=== PATIENT | female | born 1950 | race African-American/Black ===

== ENCOUNTER → 2020-04-28 10:55 | Outpatient (BNVA) | payer MEDICARE, SELFPAY | PROVIDERS: PCP Family Medicine; Visit Provider Internal Medicine Endocrinology, Diabetes & Metabolism | DX: E10.65 Type 1 diabetes mellitus with hyperglycemia (principal); E10.42 Type 1 diabetes mellitus with diabetic polyneuropathy; Z46.81 Encounter for fitting and adjustment of insulin pump; E78.5 Hyperlipidemia, unspecified; E55.9 Vitamin D deficiency, unspecified; E66.9 Obesity, unspecified; Z79.899 Other long term (current) drug therapy | CPT/HCPCS: 82947; 99212 ==

== ENCOUNTER → 2020-08-04 10:43 | Outpatient (BNVA) | payer MEDICARE, SELFPAY | PROVIDERS: PCP Family Medicine; Visit Provider Internal Medicine Endocrinology, Diabetes & Metabolism | DX: E10.65 Type 1 diabetes mellitus with hyperglycemia (principal); E10.42 Type 1 diabetes mellitus with diabetic polyneuropathy; E78.5 Hyperlipidemia, unspecified; E55.9 Vitamin D deficiency, unspecified; E66.9 Obesity, unspecified; I10 Essential (primary) hypertension | CPT/HCPCS: 82947; 99212 ==

== ENCOUNTER 2020-08-04 11:59 | Outpatient (REF) | payer MEDICARE, SELFPAY ==
[2020-08-04 14:58] LABS: Alanine Aminotransferase 40 U/L (0-31); Albumin Level 3.7 g/dL (3.5-5.0); Alkaline Phosphatase 108 U/L (39-117); Anion Gap 12 (12-20); Aspartate Amino Transferase 36 U/L (5-31); Bilirubin Total 0.6 mg/dL (0.0-1.0); Blood Urea Nitrogen 19 mg/dL (9-16); Calcium 9.1 mg/dL (8.4-10.2); Carbon Dioxide 30 mmol/L (22-29); Chloride 101 mmol/L (96-108); Cholesterol 122 mg/dL; Estimated Glomerular Filt Rate > 60; Glucose Fasting 180 mg/dL (60-99); HDL Cholesterol 48 mg/dL; LDL Cholesterol Calculated 63 mg/dl; Potassium 4.7 mmol/L (3.3-5.1); Sodium 138 mmol/L (135-145); Triglycerides 59 mg/dL
[2020-08-04 14:59] LABS: Creatinine Urine 24.43 mg/dL; Microalbum/Creatinine Ratio Ur 192.3 ug/mg cr
[2020-08-04 15:05] LABS: Free T4 (Free Thyroxine) 1.11 ng/dL (0.71-1.85); Vitamin D 25-OH Total 41.3 ng/mL (>30)
[2020-08-04 15:29] LABS: Vitamin B12 889 pg/mL (200-900)
[2020-08-05 20:47] LABS: LDL Cholesterol Direct 57 mg/dL (<100)
== END 2020-08-04 12:00 | disposition home or self-care (01) ==
LOC: HO.10HDL 11:59
PROVIDERS: Visit Provider Internal Medicine Endocrinology, Diabetes & Metabolism
DX: E10.65 Type 1 diabetes mellitus with hyperglycemia (principal)
CPT/HCPCS: 36415; 80053; 80061; 82043; 82306; 82607; 83721; 84439; 84443

== ENCOUNTER → 2020-09-04 10:23 | Outpatient (BNV) | payer MEDICARE, SELFPAY | PROVIDERS: PCP Family Medicine; Visit Provider Internal Medicine Medical Oncology | DX: D69.6 Thrombocytopenia, unspecified (principal); D64.9 Anemia, unspecified | CPT/HCPCS: 99213; 99214 ==

== ENCOUNTER → 2020-10-03 10:32 | Outpatient (BNVA) | payer MEDICARE, SELFPAY | PROVIDERS: Visit Provider Student in an Organized Health Care Education/Training Program | DX: M05.9 Rheumatoid arthritis with rheumatoid factor, unspecified (principal); Z79.899 Other long term (current) drug therapy | CPT/HCPCS: 99212 ==

== ENCOUNTER 2020-10-28 10:25 | Outpatient (REF) | payer MEDICARE, SELFPAY ==
--- NOTE | ~2020-10-28 | XR_ITS ---
EXAMINATION: XR CHEST CLINICAL INFORMATION: Cough COMPARISON: April 12, 2017 TECHNIQUE: 2 views of the chest were obtained. FINDINGS: There is no evidence of acute parenchymal disease. No pneumothorax or pleural effusion. Heart is enlarged. Pacemaker/defibrillator in place. No evidence of pulmonary edema. XR/XR chest 2V IMPRESSION: No acute disease. Cardiomegaly without edema.
== END 2020-10-28 10:26 | disposition home or self-care (01) ==
LOC: HO.XRAY 10:25
PROVIDERS: PCP Family Medicine; Visit Provider Family Medicine
DX: R05 Cough (principal); I51.7 Cardiomegaly
CPT/HCPCS: 71046

== ENCOUNTER 2020-11-10 10:39 | Outpatient (REF) | payer MEDICARE, SELFPAY ==
--- NOTE | ~2020-11-10 | MM_ITS ---
EXAMINATION: MM SCREENING DIGITAL BREAST TOMOSYNTHESIS, BILATERAL CLINICAL INFORMATION: Screening. Asymptomatic. The lifetime risk of breast cancer based on the Tyrer-Cuzick Model is 2%. COMPARISON: Mammography: 12/19/2018, 11/29/2016, 11/04/2015 TECHNIQUE: Digital breast tomosynthesis is performed in both the craniocaudal and mediolateral oblique views along with computer-aided detection (CAD). Synthesized 2D images are generated from the tomosynthesis. Additional left MLO view is provided. FINDINGS: The breasts are heterogeneously dense, which may obscure small masses (ACR BI-RADS breast composition Category c). There are no significant masses, abnormal calcifications, or other abnormalities. There is a pacemaker generator overlying and partly obscuring the left axilla on the MLO view. Parenchymal pattern is similar to prior studies. There is no developing density. Benign ductal secretory calcifications are again noted mid outer right breast. MM/MM tomosynthesis screening BI IMPRESSION: No mammographic evidence of malignancy. ASSESSMENT: BI-RADS 2: Benign RECOMMENDATION: Routine annual mammography screening. This patient's information was entered into a reminder system with a target due date for their next mammogram.
== END 2020-11-10 10:40 | disposition home or self-care (01) ==
LOC: HO.MAMMO 10:39
PROVIDERS: Visit Provider Family Medicine
DX: Z12.31 Encounter for screening mammogram for malignant neoplasm of breast (principal)
CPT/HCPCS: 77063; 77067

== ENCOUNTER 2020-11-11 10:36 | Outpatient (REF) | payer MEDICARE, SELFPAY ==
[2020-11-11 13:54] LABS: Alanine Aminotransferase 65 U/L (0-31); Albumin Level 3.6 g/dL (3.5-5.0); Alkaline Phosphatase 130 U/L (39-117); Aspartate Amino Transferase 40 U/L (5-31); Bilirubin Direct 0.2 mg/dL (0.0-0.5); Bilirubin Total 0.6 mg/dL (0.0-1.0); Gamma Glutamyl Transpeptidase 81 U/L (7-33); Total Protein 6.4 g/dL (6.5-8.0)
== END 2020-11-11 10:37 | disposition home or self-care (01) ==
LOC: HO.LAB 10:36
PROVIDERS: PCP Family Medicine; Visit Provider Internal Medicine Endocrinology, Diabetes & Metabolism
DX: E10.65 Type 1 diabetes mellitus with hyperglycemia (principal); E10.42 Type 1 diabetes mellitus with diabetic polyneuropathy; I10 Essential (primary) hypertension; E78.5 Hyperlipidemia, unspecified; E55.9 Vitamin D deficiency, unspecified; E66.9 Obesity, unspecified; Z79.899 Other long term (current) drug therapy; Z96.41 Presence of insulin pump (external) (internal); R74.8 Abnormal levels of other serum enzymes
CPT/HCPCS: 36415; 80076; 82947; 82977; 99212

== ENCOUNTER 2020-12-02 10:33 | Outpatient (REF) | payer MEDICARE, SELFPAY ==
[2020-12-02 12:36] LABS: Alanine Aminotransferase 62 U/L (0-31); Albumin Level 3.4 g/dL (3.5-5.0); Alkaline Phosphatase 126 U/L (39-117); Aspartate Amino Transferase 41 U/L (5-31); Bilirubin Direct 0.2 mg/dL (0.0-0.5); Bilirubin Total 0.6 mg/dL (0.0-1.0); Total Protein 6.2 g/dL (6.5-8.0)
== END 2020-12-02 10:34 | disposition home or self-care (01) ==
LOC: HO.LAB 10:33
PROVIDERS: PCP Family Medicine; Visit Provider Internal Medicine Endocrinology, Diabetes & Metabolism
DX: R74.8 Abnormal levels of other serum enzymes (principal)
CPT/HCPCS: 36415; 80076

== ENCOUNTER 2020-12-17 10:38 | Outpatient (REF) | payer MEDICARE, SELFPAY ==
[2020-12-17 11:14] LABS: MANUAL DIFF FLAG NO
[2020-12-17 11:24] LABS: Basophils Percent Auto 0.4 % (0-2); Eosinophils Absolute Auto 0.2 X10*3/uL (0.0-0.4); Eosinophils Percent Auto 3.3 % (0-4); Hematocrit 35.1 % (37-47); Hemoglobin 10.7 g/dl (12.0-16.0); Imm Gran Abs Auto 0.03 X10*3/uL (0.00-0.03); Imm Gran Pct Auto 0.4 % (0.0-0.4); Lymphocytes Absolute Auto 1.6 X10*3/uL (1.2-4.9); Lymphocytes Percent Auto 22.5 % (20-40); Mean Corpuscular HGB Conc 30.5 g/dl (31.0-35.0); Mean Corpuscular Hemoglobin 22.9 pg (27.0-33.0); Mean Corpuscular Volume 75.2 fL (80-98); Monocytes Absolute Auto 0.5 X10*3/uL (0.1-1.2); Monocytes Percent Auto 7.5 % (2-11); Neutrophils Absolute Auto 4.7 X10*3/uL (2.0-8.3); Neutrophils Percent Auto 65.9 % (45-73); Platelet Count 136 X10*3/uL (160-400); Red Blood Count 4.67 X10*6/uL (4.20-5.50); Red Cell Distribution Width 15.1 % (11.0-16.0); White Blood Count 7.1 X10*3/uL (4.8-10.8)
[2020-12-17 12:02] LABS: Erythrocyte Sedimentation Rate 17 MM/HR (0-20)
[2020-12-17 12:19] LABS: Alanine Aminotransferase 75 U/L (0-31); Albumin Level 3.6 g/dL (3.5-5.0); Alkaline Phosphatase 142 U/L (39-117); Anion Gap 11 (12-20); Aspartate Amino Transferase 40 U/L (5-31); Bilirubin Total 0.4 mg/dL (0.0-1.0); Blood Urea Nitrogen 19 mg/dL (9-16); C Reactive Protein 0.43 mg/dL (< or = 0.50); Calcium 9.5 mg/dL (8.4-10.2); Carbon Dioxide 28 mmol/L (22-29); Chloride 103 mmol/L (96-108); Estimated Glomerular Filt Rate 55; Glucose Random 242 mg/dL (60-115); Potassium 4.2 mmol/L (3.3-5.1); Sodium 138 mmol/L (135-145); Total Protein 6.7 g/dL (6.5-8.0)
== END 2020-12-17 10:39 | disposition home or self-care (01) ==
LOC: HO.LAB 10:38
PROVIDERS: PCP Family Medicine; Visit Provider Student in an Organized Health Care Education/Training Program
DX: M05.9 Rheumatoid arthritis with rheumatoid factor, unspecified (principal)
CPT/HCPCS: 36415; 80053; 85025; 85652; 86140

== ENCOUNTER → 2021-01-02 10:18 | Outpatient (BNVA) | payer MEDICARE, SELFPAY | PROVIDERS: PCP Family Medicine; Visit Provider Student in an Organized Health Care Education/Training Program | DX: M05.9 Rheumatoid arthritis with rheumatoid factor, unspecified (principal); Z79.899 Other long term (current) drug therapy | CPT/HCPCS: 99212 ==

== ENCOUNTER 2021-02-03 10:26 | Outpatient (REF) | payer MEDICARE, SELFPAY ==
--- NOTE | ~2021-02-03 | XR_ITS ---
EXAMINATION: XR WRIST, RIGHT XR WRIST, LEFT CLINICAL INFORMATION: Rheumatoid arthritis with rheumatoid factor. Pain runs through the hand to shoulder. COMPARISON: Bilateral hand/wrist 06/18/2019. TECHNIQUE: PA, oblique, lateral, and odontoid views of each wrist are obtained. FINDINGS: RIGHT WRIST: There is no acute fracture or malalignment. There are no apparent degenerative changes or erosions. LEFT WRIST: There is an old ununited ulnar styloid fracture. There is no acute fracture or malalignment. There is no change in a small subchondral degenerative cyst in the distal scaphoid which may be degenerative. There are no other apparent degenerative arthritic changes. There are no erosions. XR/XR wrist LT 2V IMPRESSION: Right Wrist: Unremarkable radiographs. No evidence of inflammatory arthropathy. Left Wrist: Old ununited avulsion fracture of the ulnar styloid. No change in subchondral degenerative cyst in the distal scaphoid which may be degenerative. No evidence of inflammatory arthropathy.
--- NOTE | ~2021-02-03 | XR_ITS ---
EXAMINATION: XR WRIST, RIGHT XR WRIST, LEFT CLINICAL INFORMATION: Rheumatoid arthritis with rheumatoid factor. Pain runs through the hand to shoulder. COMPARISON: Bilateral hand/wrist 06/18/2019. TECHNIQUE: PA, oblique, lateral, and odontoid views of each wrist are obtained. FINDINGS: RIGHT WRIST: There is no acute fracture or malalignment. There are no apparent degenerative changes or erosions. LEFT WRIST: There is an old ununited ulnar styloid fracture. There is no acute fracture or malalignment. There is no change in a small subchondral degenerative cyst in the distal scaphoid which may be degenerative. There are no other apparent degenerative arthritic changes. There are no erosions. XR/XR wrist RT 2V IMPRESSION: Right Wrist: Unremarkable radiographs. No evidence of inflammatory arthropathy. Left Wrist: Old ununited avulsion fracture of the ulnar styloid. No change in subchondral degenerative cyst in the distal scaphoid which may be degenerative. No evidence of inflammatory arthropathy.
[2021-02-03 10:58] LABS: MANUAL DIFF FLAG NO
[2021-02-03 11:16] LABS: Basophils Percent Auto 0.3 % (0-2); Eosinophils Absolute Auto 0.2 X10*3/uL (0.0-0.4); Eosinophils Percent Auto 2.3 % (0-4); Hemoglobin 10.6 g/dl (12.0-16.0); Imm Gran Abs Auto 0.04 X10*3/uL (0.00-0.03); Imm Gran Pct Auto 0.5 % (0.0-0.4); Lymphocytes Absolute Auto 1.3 X10*3/uL (1.2-4.9); Lymphocytes Percent Auto 15.1 % (20-40); Mean Corpuscular HGB Conc 30.3 g/dl (31.0-35.0); Mean Corpuscular Hemoglobin 22.6 pg (27.0-33.0); Mean Corpuscular Volume 74.8 fL (80-98); Monocytes Absolute Auto 0.7 X10*3/uL (0.1-1.2); Monocytes Percent Auto 7.5 % (2-11); Neutrophils Absolute Auto 6.5 X10*3/uL (2.0-8.3); Neutrophils Percent Auto 74.3 % (45-73); Platelet Count 141 X10*3/uL (160-400); Red Blood Count 4.68 X10*6/uL (4.20-5.50); Red Cell Distribution Width 15.4 % (11.0-16.0); White Blood Count 8.8 X10*3/uL (4.8-10.8)
[2021-02-03 11:29] LABS: Alanine Aminotransferase 31 U/L (0-31); Albumin Level 3.7 g/dL (3.5-5.0); Alkaline Phosphatase 128 U/L (39-117); Anion Gap 9 (12-20); Aspartate Amino Transferase 23 U/L (5-31); Bilirubin Total 0.5 mg/dL (0.0-1.0); Blood Urea Nitrogen 21 mg/dL (9-16); C Reactive Protein 0.38 mg/dL (< or = 0.50); Calcium 9.9 mg/dL (8.4-10.2); Carbon Dioxide 31 mmol/L (22-29); Chloride 101 mmol/L (96-108); Estimated Glomerular Filt Rate > 60; Glucose Random 206 mg/dL (60-115); Potassium 4.1 mmol/L (3.3-5.1); Sodium 137 mmol/L (135-145)
[2021-02-03 12:07] LABS: Erythrocyte Sedimentation Rate 18 MM/HR (0-20)
== END 2021-02-03 10:27 | disposition home or self-care (01) ==
LOC: HO.XRAY 10:26
PROVIDERS: PCP Family Medicine; Visit Provider Student in an Organized Health Care Education/Training Program
DX: M05.9 Rheumatoid arthritis with rheumatoid factor, unspecified (principal)
CPT/HCPCS: 36415; 73100; 80053; 85025; 85652; 86140

== ENCOUNTER → 2021-02-04 08:29 | Outpatient (BNVA) | payer MEDICARE, SELFPAY | PROVIDERS: Visit Provider Nurse Practitioner Family | DX: M05.9 Rheumatoid arthritis with rheumatoid factor, unspecified (principal); M25.511 Pain in right shoulder; Z79.899 Other long term (current) drug therapy | CPT/HCPCS: 99212 ==

== ENCOUNTER 2021-02-05 10:32 | Outpatient (REF) | payer MEDICARE, SELFPAY ==
--- NOTE | ~2021-02-05 | XR_ITS ---
EXAMINATION: XR SHOULDER, RIGHT CLINICAL INFORMATION: Right shoulder pain. COMPARISON: 07/15/2011 TECHNIQUE: AP external rotation, Grashey, scapular Y, and axillary views of the right shoulder. FINDINGS: There is no evidence of acute fracture or dislocation of the right shoulder. Glenohumeral joint appears unremarkable. There is some mild narrowing of the acromioclavicular joint without significant spurring. No widening of the coracoclavicular space is seen. No calcific tendinitis is noted. XR/XR shoulder RT min 2V IMPRESSION: No significant right shoulder abnormality appreciated.
[2021-02-05 11:20] LABS: MANUAL DIFF FLAG NO
[2021-02-05 11:34] LABS: Basophils Percent Auto 0.5 % (0-2); Eosinophils Absolute Auto 0.1 X10*3/uL (0.0-0.4); Eosinophils Percent Auto 2.2 % (0-4); Hematocrit 34.7 % (37-47); Hemoglobin 10.8 g/dl (12.0-16.0); Imm Gran Abs Auto 0.02 X10*3/uL (0.00-0.03); Imm Gran Pct Auto 0.3 % (0.0-0.4); Lymphocytes Absolute Auto 1.4 X10*3/uL (1.2-4.9); Lymphocytes Percent Auto 21.6 % (20-40); Mean Corpuscular HGB Conc 31.1 g/dl (31.0-35.0); Monocytes Absolute Auto 0.4 X10*3/uL (0.1-1.2); Monocytes Percent Auto 6.5 % (2-11); Neutrophils Absolute Auto 4.4 X10*3/uL (2.0-8.3); Neutrophils Percent Auto 68.9 % (45-73); Platelet Count 141 X10*3/uL (160-400); Red Blood Count 4.69 X10*6/uL (4.20-5.50); Red Cell Distribution Width 15.2 % (11.0-16.0); White Blood Count 6.4 X10*3/uL (4.8-10.8)
[2021-02-05 12:03] LABS: Alanine Aminotransferase 33 U/L (0-31); Albumin Level 3.6 g/dL (3.5-5.0); Alkaline Phosphatase 124 U/L (39-117); Anion Gap 8 (12-20); Aspartate Amino Transferase 23 U/L (5-31); Bilirubin Total 0.4 mg/dL (0.0-1.0); Blood Urea Nitrogen 18 mg/dL (9-16); C Reactive Protein 0.39 mg/dL (< or = 0.50); Carbon Dioxide 33 mmol/L (22-29); Chloride 103 mmol/L (96-108); Estimated Glomerular Filt Rate > 60; Glucose Random 291 mg/dL (60-115); Potassium 4.5 mmol/L (3.3-5.1); Sodium 139 mmol/L (135-145); Total Protein 6.9 g/dL (6.5-8.0)
[2021-02-05 12:14] LABS: Erythrocyte Sedimentation Rate 17 MM/HR (0-20)
== END 2021-02-05 10:33 | disposition home or self-care (01) ==
LOC: HO.XRAY 10:32
PROVIDERS: PCP Family Medicine; Visit Provider Nurse Practitioner Family
DX: M25.511 Pain in right shoulder (principal); M05.9 Rheumatoid arthritis with rheumatoid factor, unspecified
CPT/HCPCS: 36415; 73030; 80053; 85025; 85652; 86140

== ENCOUNTER → 2021-02-23 10:46 | Outpatient (BNVA) | payer MEDICARE, SELFPAY | PROVIDERS: PCP Family Medicine; Referring Provider Family Medicine; Visit Provider Surgery | DX: Z12.11 Encounter for screening for malignant neoplasm of colon (principal); K21.9 Gastro-esophageal reflux disease without esophagitis | CPT/HCPCS: 99202 ==

== ENCOUNTER → 2021-03-13 11:31 | Outpatient (BNVA) | payer MEDICARE, SELFPAY | PROVIDERS: Referring Provider Family Medicine; Visit Provider Nurse Practitioner Family | DX: K21.9 Gastro-esophageal reflux disease without esophagitis (principal); R74.8 Abnormal levels of other serum enzymes; R79.89 Other specified abnormal findings of blood chemistry | CPT/HCPCS: 99202 ==

== ENCOUNTER → 2021-03-25 10:45 | Outpatient (BNVA) | payer MEDICARE, SELFPAY | PROVIDERS: Visit Provider Physician Assistant | DX: M77.11 Lateral epicondylitis, right elbow (principal) | CPT/HCPCS: 99202 ==

== ENCOUNTER 2021-05-18 10:18 | Outpatient (REF) | payer MEDICARE, SELFPAY | END 2021-05-18 10:19 | disposition home or self-care (01) | LOC: HO.US 10:18 | PROVIDERS: PCP Family Medicine; Visit Provider Nurse Practitioner | DX: Z13.89 Encounter for screening for other disorder (principal) ==

== ENCOUNTER 2021-07-01 08:22 | Outpatient (REF) | payer MEDICARE, SELFPAY ==
--- NOTE | 2021-07-01 08:33 | EMG_ITS ---
This is a 70-year-old woman with 2 months history of right upper extremity pain that started in the shoulder area, is now down into the hand with numbness in the hand. PHYSICAL EXAMINATION: She is alert and oriented with normal intellectual functions. Cranial nerves II through XII are normal. Muscle tone and strength are normal in all 4 extremities. Deep tendon reflexes symmetrical. No Tinel or Phalen sign. IMPRESSION: Rule out cervical radiculopathy. Rule out carpal tunnel syndrome. Nerve conduction EMG study: Normal electrodiagnostic study of the right upper extremity with no evidence of carpal tunnel syndrome or cervical radiculopathy. Normal EMG of the right C5-T1 innervated muscles. MD TAMICA Gomes/BETTIE / [id number]
== END 2021-07-01 08:23 | disposition home or self-care (01) ==
LOC: HO.NEURO 08:22
PROVIDERS: Visit Provider Family Medicine
DX: M79.601 Pain in right arm (principal); R20.2 Paresthesia of skin
CPT/HCPCS: 95885; 95910

== ENCOUNTER 2021-07-02 07:41 | Outpatient (REF) | payer MEDICARE, SELFPAY ==
--- NOTE | ~2021-07-02 | US_ITS ---
EXAMINATION: US COMPLETE ABDOMEN WITH LIVER ELASTOGRAPHY CLINICAL INFORMATION: Elevated liver function tests COMPARISON: Previous abdominal ultrasound November 2010 CT of the abdomen and pelvis September 2014 and renal ultrasound July 2015 TECHNIQUE: Real-time imaging of the abdominal viscera. Noninvasive ultrasound liver fibrosis assessment is performed using Patsy ElastPQ point quantification shear wave elastography (2D-SWE) with a C5-2 MHz transducer. Multiple elastography samples are obtained. FINDINGS: PANCREAS: The visualized pancreatic head and body are normal in appearance. The remainder of the pancreas is obscured from visualization by the overlying bowel gas. ABDOMINAL AORTA: The proximal, middle, and distal aortic segments are normal in caliber. INFERIOR VENA CAVA: Visualized portions are normal. LIVER: Normal. The liver demonstrates normal size, contour and echogenicity. No focal lesion or intrahepatic biliary duct dilatation. The right lobe measures 12 cm in length. The left lobe measures 9 cm in length. Portal flow is normal/hepatopedal Shear wave liver elastography median stiffness is 1.5 m/s (reference: normal median stiffness is 1.3 m/s or less). IQR/median stiffness to assess sampling precision is 0.1 (reference: good quality data set is IQR/median stiffness of 0.15 or less). GALLBLADDER: Normal. The gallbladder is physiologically distended without evidence of stones, sludge, polyps, wall thickening or pericholecystic fluid. COMMON BILE DUCT: Normal in caliber measuring 0.6 cm in diameter. RIGHT KIDNEY: Normal. No hydronephrosis. No renal calculi or focal parenchymal lesions. The kidney measures 10 cm in maximum dimension. LEFT KIDNEY: Normal. No hydronephrosis. No renal calculi or focal parenchymal lesions. The kidney measures 9.7 cm in maximum dimension. SPLEEN: Normal. The spleen measures 7 cm in maximum dimension. FREE FLUID: None. US/US abdomen comp w elastography IMPRESSION: 1. Impression: Limited visualization of the tail of the pancreas. Otherwise unremarkable abdominal ultrasound. 2. Liver elastography: Adequate liver sampling. In the absence of other known clinical signs, rules out compensated advanced chronic liver disease. REFERENCE: Society of Radiologists in Ultrasound Liver Stiffness Thresholds (2020): LIVER STIFFNESS THRESHOLDS: *Liver Stiffness equal or less than 1.3 m/s: High probability of being normal. *Liver Stiffness less than 1.7 m/s: In the absence of other known clinical signs, rules out compensated advanced chronic liver disease. *Liver Stiffness 1.7-2.1 m/s: Suggestive of compensated advanced chronic liver disease but need further test for confirmation. *Liver Stiffness over 2.1 m/s: Rules in compensated advanced chronic liver disease. *Liver Stiffness over 2.4 m/s: Suggestive of clinically significant portal hypertension. QUALITY OF DATA SET: *IQR/Median value equal or less than 0.15 implies a quality data set. *IQR/Median value over 0.15 implies a poor quality data set. SIGNIFICANT CHANGE FROM PRIOR EXAM: Significant change if liver stiffness measurement is 10% or greater from prior exam. OTHER CONSIDERATIONS: The stage of liver fibrosis may be overestimated in the setting of acute hepatitis, liver inflammation, elevated liver function tests, hepatic vascular congestion, obstructive cholestasis, non-fasting state, and infiltrative diseases such as amyloidosis and lymphoma. In some patients with NAFLD, the liver stiffness thresholds for compensated advanced chronic liver disease may be lower. In causes other than viral hepatitis and NAFLD, liver stiffness thresholds are not well established.
== END 2021-07-02 07:42 | disposition home or self-care (01) ==
LOC: HO.US 07:41
PROVIDERS: Visit Provider Nurse Practitioner
DX: R79.89 Other specified abnormal findings of blood chemistry (principal)
CPT/HCPCS: 76705; 76981

== ENCOUNTER 2021-07-03 07:18 | Outpatient (REF) | payer MEDICARE, SELFPAY ==
--- NOTE | 2021-07-03 | PFT_ITS ---
Forced vital capacity 78%, FEV1 88%, FEV1/FVC ratio is 85. FEF 25-75 122% and MVV is 78%. Postbronchodilator therapy, there is small, but significant improvement in FEF 25-75. Lung volumes, total lung capacity 77% and residual volume 70%. Diffusion capacity 102%. CONCLUSION: These findings are consistent with mild restrictive pulmonary disorder. No evidence of obstructive airway disorder. There is a mild significant response to bronchodilator as far as FEF 25-75 is concerned and this may indicate mild bronchospastic component. Clinical correlation is recommended. Jennifer Zeng MD MSB/MODL / [phone]
== END 2021-07-03 07:19 | disposition home or self-care (01) ==
LOC: HO.RESP 07:18
PROVIDERS: PCP Family Medicine; Visit Provider Family Medicine
DX: R05.9 Cough, unspecified (principal)
CPT/HCPCS: 94060; 94727; 94729

== ENCOUNTER → 2021-07-10 08:39 | Outpatient (BNVA) | payer MEDICARE, SELFPAY | PROVIDERS: Visit Provider Nurse Practitioner Gerontology | DX: Z13.89 Encounter for screening for other disorder (principal) | CPT/HCPCS: Q3014 ==

== ENCOUNTER → 2021-07-21 10:58 | Outpatient (BNVA) | payer MEDICARE, SELFPAY | PROVIDERS: PCP Family Medicine; Visit Provider Internal Medicine Pulmonary Disease | DX: R05.9 Cough, unspecified (principal); K21.9 Gastro-esophageal reflux disease without esophagitis; Z79.899 Other long term (current) drug therapy | CPT/HCPCS: 99202 ==

== ENCOUNTER → 2021-07-23 09:39 | Outpatient (BNVA) | payer OTHER, SELFPAY | PROVIDERS: PCP Family Medicine; Visit Provider Registered Nurse Diabetes Educator | DX: E10.42 Type 1 diabetes mellitus with diabetic polyneuropathy (principal) | CPT/HCPCS: 99211 ==

== ENCOUNTER 2021-07-28 06:00 | Day surgery (SDC) | payer MEDICARE, SELFPAY ==
[2021-07-20 15:03] VITALS: BMI 29.0
--- NOTE | 2021-07-24 12:22 | P.CONAN_ITS ---
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) Acute pain of right shoulder (Acute) Colon cancer screening (Acute) Lateral epicondylitis, right elbow (Acute) Chronic GERD (Acute) Elevated liver enzymes (Acute) Seropositive rheumatoid arthritis (Acute) Obesity (BMI 30-39.9) (Acute) Rheumatoid arthritis (Acute) Vitamin D deficiency (Acute) Dyslipidemia (Acute) Hypertension (Acute) Diabetic polyneuropathy associated with type 1 diabetes mellitus (Acute) Diabetes type 1, uncontrolled (Acute) Past Medical History Medical History (Updated 07/21/21 @ 11:36 by Jona Lowe MD) Anemia CAD (coronary artery disease) CHF (congestive heart failure) Chronic cough Chronic GERD Diabetes type 1, uncontrolled 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 Mother No problems noted. Maternal Aunt Diabetes mellitus Surgical History Surgical History (Updated 07/20/21 @ 14:08 by Dimple Chadwick RN) Hx of cardiac pacemaker Hx of section Hx of colonoscopy Hx of hysterectomy Social History Social History Are you a primary team primary care physician to a significant other at home: No Do you presently have visiting nurse or other home services: No Alcohol intake: never Patient Tobacco Use Status: Never used Tobacco Current occupational status: retired Current occupation: rt handed Meds Allergies Allergy/AdvReac Type Severity Reaction Status Date / Time No Known Allergies Allergy Verified 07/28/21 06:25 Home Medications Medication Instructions Recorded Confirmed Last Taken Type apixaban 5 mg tablet 5 mg PO BID 04/28/20 07/28/21 07/25/21 History baclofen 10 mg tablet 10 mg PO TID PRN 04/28/20 07/20/21 Unknown History blood sugar diagnostic #10 ea 04/28/20 06/15/21 Unknown History cetirizine 10 mg tablet 10 mg PO DAILY PRN 04/28/20 07/20/21 Unknown History gabapentin 100 mg capsule 200 mg PO BEDTIME PRN 04/28/20 07/20/21 Unknown History metoprolol tartrate 100 mg tablet 100 mg PO BID 04/28/20 07/20/21 Unknown History spironolactone 25 mg tablet 25 mg PO DAILY 04/28/20 07/20/21 Unknown History tramadol 50 mg tablet 50 mg PO BID PRN 04/28/20 07/20/21 Unknown History digoxin 125 mcg (0.125 mg) tablet 125 mcg PO DAILY 08/04/20 07/20/21 Unknown History (Digox) furosemide 20 mg tablet 20 mg PO BID tab 08/04/20 07/20/21 Unknown History ascorbic acid (vitamin C) 500 mg 500 mg PO DAILY tab 10/03/20 07/20/21 Unknown History tablet fluticasone propionate 50 2 spray INTRANASAL DAILY PRN 11/11/20 07/20/21 Unknown History mcg/actuation nasal spray,suspension sacubitril 49 mg-valsartan 51 mg 1 tab PO BID 11/11/20 07/20/21 Unknown History tablet (Entresto) glucose 4 gram chewable tablet 8 - 16 g PO 07/10/21 07/10/21 Unknown History acetaminophen 650 mg 1 tab PO Q8H PRN 07/20/21 07/20/21 Unknown History tablet,extended release (Arthritis Pain Relief (acetaminophen) ER) naloxone 4 mg/actuation nasal INTRANASAL 07/20/21 Unknown History spray (Narcan) valsartan 40 mg tablet 1 tab PO DAILY 07/20/21 07/20/21 Unknown History Exam Exam Date and Time: July 24, 2021 1222 Height,Weight and Vital Signs: Height 4 ft 11 in Weight 65.317 kg Pertinent Lab Results Pertinent Lab Results: Laboratory Tests 06/15/21 06/15/21 10:43 10:43 WBC 4.5 L Hgb 11.2 L Hct 36.4 L Plt Count 124 L Sodium 138 Potassium 4.6 Chloride 101 Carbon Dioxide 32 H BUN 16 Creatinine 1.04 Narrative Narrative: ECHO 10/2020 LV markedly dilated global hypokinesis of LV contractility EF 30-35% EF slightly improved from 06/2019 ICD Interrogation 05/2021 on chart PFT 06/2021 CONCLUSION:? These findings are consistent with mild restrictive pulmonary disorder. ? No evidence of obstructive airway disorder. ? There is a mild significant response to bronchodilator as far as FEF 25-75 is concerned and this may indicate mild bronchospastic component. ? Clinical correlation is recommended. Assessment and Plan Assessment Anesthesia Assessment: Chart Reviewed Documented by User: Naeem Gant MD 07/28/21 15:11 HPI - Anesthesia Eval Consult details Narrative: 70yo F for Upper Endoscopy and Colonoscopy, possible polypectomy Eliquis for aflutter, on hold for the procedure ICD in situ Patient did not take beta blockers , with the help of animal cruelty investigation supervisor counselled the patient on the importance taking all the meds specially beta blockers . 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 Mother No problems noted. Maternal Aunt Diabetes mellitus Family history of problems with anesthesia: No Surgical History Surgical History (Updated 07/20/21 @ 14:08 by Dimple Chadwick RN) Hx of cardiac pacemaker Hx of section Hx of colonoscopy Hx of hysterectomy History of Problems with Anesthesia: No Social History Social History Are you a primary team primary care physician to a significant other at home: No Do you presently have visiting nurse or other home services: No Alcohol intake: never Patient Tobacco Use Status: Never used Tobacco Current occupational status: retired Current occupation: rt handed Meds Allergies Allergy/AdvReac Type Severity Reaction Status Date / Time No Known Allergies Allergy Verified 07/28/21 06:25 Home Medications Medication Instructions Recorded Confirmed Last Taken Type apixaban 5 mg tablet 5 mg PO BID 04/28/20 07/28/21 07/25/21 History baclofen 10 mg tablet 10 mg PO TID PRN 04/28/20 07/20/21 Unknown History blood sugar diagnostic #10 ea 04/28/20 06/15/21 Unknown History cetirizine 10 mg tablet 10 mg PO DAILY PRN 04/28/20 07/20/21 Unknown History gabapentin 100 mg capsule 200 mg PO BEDTIME PRN 04/28/20 07/20/21 Unknown History metoprolol tartrate 100 mg tablet 100 mg PO BID 04/28/20 07/20/21 Unknown History spironolactone 25 mg tablet 25 mg PO DAILY 04/28/20 07/20/21 Unknown History tramadol 50 mg tablet 50 mg PO BID PRN 04/28/20 07/20/21 Unknown History digoxin 125 mcg (0.125 mg) tablet 125 mcg PO DAILY 08/04/20 07/20/21 Unknown History (Digox) furosemide 20 mg tablet 20 mg PO BID tab 08/04/20 07/20/21 Unknown History ascorbic acid (vitamin C) 500 mg 500 mg PO DAILY tab 10/03/20 07/20/21 Unknown History tablet fluticasone propionate 50 2 spray INTRANASAL DAILY PRN 11/11/20 07/20/21 Unknown History mcg/actuation nasal spray,suspension sacubitril 49 mg-valsartan 51 mg 1 tab PO BID 11/11/20 07/20/21 Unknown History tablet (Entresto) glucose 4 gram chewable tablet 8 - 16 g PO 07/10/21 07/10/21 Unknown History acetaminophen 650 mg 1 tab PO Q8H PRN 07/20/21 07/20/21 Unknown History tablet,extended release (Arthritis Pain Relief (acetaminophen) ER) naloxone 4 mg/actuation nasal INTRANASAL 07/20/21 Unknown History spray (Narcan) valsartan 40 mg tablet 1 tab PO DAILY 07/20/21 07/20/21 Unknown History Exam Airway Mallampati Class: III TM Dist: >3cm Neck ROM: Limited Loose/Missing/Broken Teeth: Yes (Poor dentation , chipped teeth ) Heart: paced Lungs: bl breath sounds Assessment and Plan Assessment Anesthesia Assessment: Anesthesia Plan Discussed Final Anesthetic Review Family History of Problems with Anesthesia: No History of Problems with Anesthesia: No NPO: Yes ASA Class: IV Final Preanesthetic Review: Meds/Allgs Chart Reviewed, Consent Obtained/Reviewed and Anes Risks/Benef Reviewed Patient Risk: High Procedure Risk: Intermediate Anesthetic Plan Anesthetic Plan: MAC: Disposition: Standard PACU
[2021-07-28 06:42] VITALS: BP 146/74; PULSE 98; RESP 16; TEMP 36.9; O2SAT 99
[2021-07-28 06:49] LABS: Glucose, Whole Blood 169 mg/dL (60-115)
[2021-07-28] MEDS: Lactated Ringers 1,000 ML 80 ML IVCONT (06:50)
--- NOTE | 2021-07-28 07:19 | MHC.SHP ---
Pre-Procedural Eval Section A Date of Service: 07/28/21 Section B Chief Complaint: Screening Details of Present Illness: last colonoscopy was in 2009; also has chronic reflux symptoms Relevant Family History (Specify if Yes): No Present Medications: see Short Stay Collaborative assessment Medical History: Significant History (rheumatoid arhtritis, reflux,HTN, dyslipidemia) History of Previous Operations: No relevant previous surgery Allergies: Allergies Allergy/AdvReac Type Severity Reaction Status Date / Time No Known Allergies Allergy Verified 07/28/21 06:25 Exam Surgical H&P Exam: Normal: HEENT, Normal: Heart, Normal: Lungs, Normal: Extremities, Normal: Abdomen, Normal: Skin and Normal: Neurological Plan Diagnosis/Plan: Unchanged I have reviewed the history and physical and performed a pertinent physical examination on my patient. No changes have occurred unless specified.
--- NOTE | 2021-07-28 08:11 | P.OP_ITS ---
Operative Note Operative Note Date of Service: 07/28/21 Narrative: Preop diagnosis: Colon cancer screening and reflux symptoms Postop diagnosis: 1. Diffuse gastritis otherwise no other lesions or ulcers on EGD 2. Internal and external hemorrhoids otherwise normal colonoscopy findings Procedure: 1. EGD with biopsies of the stomach mucosa 2. Screening colonoscopy surgeon: Praneeth Mcintyre MD The patient is a 71 year [place] as well as for EGD for chronic reflux symptoms. Understood the technique of both procedures. She was aware of the risks, benefits, and alternatives She was brought to the operating room and placed supine and slightly reclined under monitored anesthesia care. A bite block was in position. Surgical time- out was done The scope was introduced through the bite block into the oropharynx. The vocal cords were visualized. the esophageal slit was seen posterior to this. The esophageal slit was intubated and the scope was gently advanced through the entire length of esophagus all with the stomach. The stomach was insufflated. The pyloric orifice was seen and the scope was advanced through this into the C- loop of the duodenum. The duodenal mucosa examined carefully. There were no lesions or any ulcer seen. The scope was withdrawn back into the stomach. The rugae were seen and there was note of diffuse gastritis on the stomach mucosa. There were however no sores or any discrete lesions. I did random biopsies of the stomach mucosa and this were sent for pathology. the entire stomach mucosa was examined. The scope was retroflexed to visualize the cardia and hiatus. There was no taken hiatal hernia. There were no ulcers in the cardia I then straightened the scope and with delayed gently into the esophagus. The GE junction was unremarkable without any lesions or any signs of Urena's mucosa. The GE junction about level 32 cm from the incisors. The esophageal mucosal and was unremarkable. The scope was then withdrawn completely with desufflation. We then proceeded to do the screening colonoscopy. The patient was placed in a left lateral decubitus position. A digital rectal exam was done. There were no palpable anal canal masses no induration. The scope was introduced gently into the anal orifice and advanced with insufflation all the way to cecum but the cecum was intubated. The cecum was identified via visualization of the ileocecal valve as well as the appendiceal orifice. The cecal mucosa was unremarkable. The scope was gradually withdrawn with careful examination of the entire colonic mucosa being done with scope withdrawal. The patient had adequate bowel prep so it was unlikely that any lesion may have been missed. The rectum was reached. There were no lesions seen. The anal canal was unremarkable except for internal and external hemorrhoids. The scope was then withdrawn completely with desufflation The patient tolerated the procedure well. There were no complications noted. She falls at average risk for colon cancer so this may be her last colonoscopy for screening. I will see her in the office to discuss the findings. She can rest Eliquis tomorrow.
[2021-07-28 08:15] VITALS: BP 95/50; PULSE 85; RESP 20; TEMP 36.4; O2SAT 97
[2021-07-28 08:30] VITALS: BP 109/61; PULSE 82; RESP 16; TEMP 36.1; O2SAT 97
[2021-07-28 08:41] VITALS: BP 121/68; PULSE 86; RESP 16; TEMP 36.1; O2SAT 97
== END 2021-07-28 09:25 | disposition home or self-care (01) ==
PROVIDERS: PCP Family Medicine; Visit Provider Surgery
PROC: (CPT 43239; principal; 2021-07-28 07:30)
DX: Z12.11 Encounter for screening for malignant neoplasm of colon (principal); K64.8 Other hemorrhoids; K64.4 Residual hemorrhoidal skin tags; K21.9 Gastro-esophageal reflux disease without esophagitis; K29.50 Unspecified chronic gastritis without bleeding; B96.81 Helicobacter pylori [H. pylori] as the cause of diseases classified elsewhere; E10.42 Type 1 diabetes mellitus with diabetic polyneuropathy; Z79.4 Long term (current) use of insulin; E78.5 Hyperlipidemia, unspecified; I10 Essential (primary) hypertension; M05.9 Rheumatoid arthritis with rheumatoid factor, unspecified; E55.9 Vitamin D deficiency, unspecified; Z79.899 Other long term (current) drug therapy
CPT/HCPCS: 43239; G0121; 82947; 88305; 88342; J2370

== ENCOUNTER → 2021-08-10 10:18 | Outpatient (BNVA) | payer MEDICARE, SELFPAY | PROVIDERS: PCP Family Medicine; Referring Provider Family Medicine; Visit Provider Surgery | DX: Z12.11 Encounter for screening for malignant neoplasm of colon (principal); K29.70 Gastritis, unspecified, without bleeding; B96.81 Helicobacter pylori [H. pylori] as the cause of diseases classified elsewhere | CPT/HCPCS: 99212 ==

== ENCOUNTER → 2021-08-20 10:30 | Outpatient (BNVA) | payer MEDICARE, SELFPAY | PROVIDERS: PCP Family Medicine; Visit Provider Registered Nurse Diabetes Educator | DX: E10.42 Type 1 diabetes mellitus with diabetic polyneuropathy (principal) | CPT/HCPCS: 99211 ==

== ENCOUNTER → 2021-09-01 08:30 | Outpatient (BNVA) | payer OTHER, SELFPAY | PROVIDERS: PCP Family Medicine; Visit Provider Registered Nurse Diabetes Educator | DX: E10.42 Type 1 diabetes mellitus with diabetic polyneuropathy (principal) | CPT/HCPCS: 99211 ==

== ENCOUNTER → 2021-09-02 10:30 | Outpatient (BNVA) | payer MEDICARE, SELFPAY | PROVIDERS: PCP Family Medicine; Visit Provider Internal Medicine Pulmonary Disease | DX: R05.9 Cough, unspecified (principal); R06.00 Dyspnea, unspecified; K21.9 Gastro-esophageal reflux disease without esophagitis; Z79.899 Other long term (current) drug therapy | CPT/HCPCS: 99212 ==

== ENCOUNTER 2021-09-20 10:46 | Emergency (ER) | payer MEDICARE, SELFPAY ==
[2021-09-20 11:40] VITALS: BP 146/64; PULSE 62; RESP 18; TEMP 36.1; O2SAT 99; BMI 28.1
--- NOTE | 2021-09-20 11:58 | ED.SKABFB ---
HPI - Skin/Abscess/Foreign Bdy General Chief complaint: Skin/Abscess/Foreign Body Stated complaint: Rash Time Seen by Provider: 09/20/21 11:57 Source: patient and library technician Mode of arrival: ambulatory Limitations: no limitations History of Present Illness HPI narrative: 70-year-old female with a history of diabetes, HTN, HLD, rheumatoid arthritis, GERD who presents to the ER for evaluation of itchy rash all over her back and upper arms that started 3 or 4 days ago. She denies any new lotions, soaps, creams or perfumes. She has never had a rash like this before she reports it is very itchy and dry. She denies any open sores, fever, chills, nausea, vomiting, joint pain or swelling. She has been putting calamine lotion on the area with minimal relief. MD complaint: rash Onset (ago): day(s) (4) Tetanus up to date: yes Location: back, LUE and RUE Severity: moderate Severity scale (1-10): 6 Quality: constant and pruritic Pain Consistency: constant Relieving factors: none Exacerbating factors: none Associated symptoms: denies other symptoms Treatments prior to arrival: other ( Topical calamine lotion) Related Data Home Medications Medication Instructions Recorded Confirmed apixaban 5 mg tablet 5 mg PO BID 04/28/20 08/10/21 baclofen 10 mg tablet 10 mg PO TID PRN 04/28/20 08/10/21 blood sugar diagnostic #10 ea 04/28/20 08/10/21 cetirizine 10 mg tablet 10 mg PO DAILY PRN 04/28/20 08/10/21 gabapentin 100 mg capsule 200 mg PO BEDTIME PRN 04/28/20 08/10/21 metoprolol tartrate 100 mg tablet 100 mg PO BID 04/28/20 08/10/21 spironolactone 25 mg tablet 25 mg PO DAILY 04/28/20 08/10/21 tramadol 50 mg tablet 50 mg PO BID PRN 04/28/20 08/10/21 digoxin 125 mcg (0.125 mg) tablet 125 mcg PO DAILY 08/04/20 08/10/21 (Digox) furosemide 20 mg tablet 20 mg PO BID tab 08/04/20 08/10/21 ascorbic acid (vitamin C) 500 mg 500 mg PO DAILY tab 10/03/20 08/10/21 tablet fluticasone propionate 50 2 spray INTRANASAL DAILY PRN 11/11/20 08/10/21 mcg/actuation nasal spray,suspension sacubitril 49 mg-valsartan 51 mg 1 tab PO BID 11/11/20 08/10/21 tablet (Entresto) glucose 4 gram chewable tablet 8 - 16 g PO 07/10/21 08/10/21 acetaminophen 650 mg 1 tab PO Q8H PRN 07/20/21 08/10/21 tablet,extended release (Arthritis Pain Relief (acetaminophen) ER) naloxone 4 mg/actuation nasal INTRANASAL 07/20/21 08/10/21 spray (Narcan) valsartan 40 mg tablet 1 tab PO DAILY 07/20/21 08/10/21 Previous Rx's Medication Instructions Recorded cholecalciferol (vitamin D3) 50 50 mcg PO DAILY #90 cap 11/11/20 mcg (2,000 unit) capsule ferrous sulfate 325 mg (65 mg 325 mg PO DAILY #90 tab 11/25/20 iron) tablet (FeroSul) sennosides 8.6 mg-docusate sodium 2 tab-cap PO BEDTIME #60 tab 12/04/20 50 mg tablet (Senokot-S) methotrexate sodium 2.5 mg tablet 12.5 mg PO QWEEK #60 tab 01/23/21 diclofenac sodium 1 % topical gel 2 g TOPICAL BID PRN #100 g 05/04/21 bisacodyl 5 mg tablet,delayed 5 mg PO ONCE 1 Days #2 tab 05/14/21 release (Dulcolax (bisacodyl)) folic acid 1 mg tablet 1 mg PO DAILY #60 tab 07/06/21 blood-glucose meter,continuous #1 ea 07/30/21 (Dexcom G6 Drywall Foreman) blood-glucose sensor (Dexcom G6 #3 ea 07/30/21 Sensor) blood-glucose transmitter (Dexcom #1 ea 07/30/21 G6 Transmitter) insulin aspart U-100 100 unit/mL See Rx Instructions SUBCUT DAILY 08/26/21 subcutaneous solution (Novolog 30 Days #40 ml U-100 Insulin aspart) omeprazole 40 mg capsule,delayed 40 mg PO BID 30 Days #60 cap 09/02/21 release hydrocortisone 2.5 % topical 1 appl TOPICAL BID PRN #28.35 g 09/20/21 ointment Allergies Allergy/AdvReac Type Severity Reaction Status Date / Time No Known Allergies Allergy Verified 09/02/21 10:49 Review of Systems Review of Systems: Constitutional: No Fever, No Chills ENT/Mouth: No sore throat, No Rhinorrhea Eyes: No Eye Pain, No Swelling, No Redness Cardiovascular: No Chest Pain, No SOB Gastrointestinal: No Nausea, No Vomiting, No Diarrhea, No abdominal Pain Musculoskeletal: No joint pain, No Myalgias Skin: No Skin Lesions, + rash Neuro: No Weakness, No Numbness, No Dizziness, No Headache Psych: + Anxiety/Panic, No Depression Heme/Lymph: No Bruising, No Lymphadenopathy PMFSH Past Medical History Medical History (Updated 09/20/21 @ 12:27 by DALIA Hampton) Anemia CAD (coronary artery disease) CHF (congestive heart failure) Chronic cough Chronic GERD Diabetes type 1, uncontrolled 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 Mother No problems noted. Maternal Aunt Diabetes mellitus Social History Social History Are you a primary post acute care nurse practitioner to a significant other at home: No Do you presently have visiting nurse or other home services: No Alcohol intake: never Patient Tobacco Use Status: Never used Tobacco Advance Directives: No Advance Directives Information Provided: No Current occupational status: retired Current occupation: rt handed Physical Exam Vital Signs: Vital Signs: Last Vital Signs Temp 97 F 09/20/21 11:40 Pulse 62 09/20/21 11:40 Resp 18 09/20/21 11:40 BP 146/64 H 09/20/21 11:40 Pulse Ox 99 09/20/21 11:40 BMI result Body Mass Index 28.1 Appearance: Alert. Oriented X3. No acute distress. Eyes: Pupils equal, round and reactive to light. ENT: Pharynx normal. Normal inspection Neck: Normal inspection. Neck supple. CVS: Normal heart rate and rhythm. Pulses normal. Respiratory: No respiratory distress. Breath sounds normal. Abdomen: Soft and nontender. +BS x4 No involvement on the abdomen of the rash. Skin: Skin warm and dry. Normal skin color. Normal skin turgor. There is a diffuse dry, excoriated rash located on the entire back and on the bilateral upper extremities. Skin is flaky and dry with some excoriations on the left flank from scratching. No superimposed cellulitis or signs of infection. No raised urticarial rash. Extremities: No lower extremity edema. no rash or dry skin on the lower extremities. No calf tenderness. Neuro: Oriented X 3. No motor deficit. No sensory deficit. Course Course Course Narrative: 70-year-old female with history of diabetes, HTN, HLD, rheumatoid arthritis who presents to the ER with a dry, excoriated rash on her back and arms. This started a few days ago with unknown precipitating factor. It appears that the skin is extremely dry which is causing pruritic symptoms and excoriations. We discussed treatment of her extremely dry skin with alcohol for or Eucerin cream found [id number]. Will prescribe topical hydrocortisone cream for itching as well. She is encourage follow-up with her primary care doctor this week. Advised not to scratch and advised to monitor for signs and symptoms of superimposed cellulitis. Stable for discharge home with supportive care. Critical Care Time Critical Care Time Critical Care Time: No Discharge Plan Discharge Clinical Impression: Dry skin dermatitis, Excoriation of back Patient Disposition: Home, Self-Care Instructions: Acute Rash (ED) Additional Instructions: Use the prescribed anti-itch medication two times per day Recommend Eucerin lotion or Aquaphor ointment to dry areas 2-3 times per day Avoid hot showers, only luke warm Follow-up with your doctor if no improvement this week. Use el medicamento recetado contra la picaz?n dos veces al d?a. Recomiende la loci?n Eucerin o el mady?ento Aquaphor para las ?reas secas 2 o 3 veces al d?a Evite las duchas calientes, solo tibias Buffy un seguimiento con delgadillo m?dico si no mejora esta semana. Prescriptions: New hydrocortisone 2.5 % ointment 1 appl topical BID PRN (Reason: itching) Qty: 28.35 0RF No Action methotrexate sodium 2.5 mg tablet 12.5 mg PO QWEEK Qty: 60 0RF diclofenac sodium 1 % gel 2 g topical BID PRN (Reason: for pain) Qty: 100 3RF bisacodyl [Dulcolax (bisacodyl)] 5 mg tablet,delayed release (DR/EC) 5 mg PO ONCE 1 Days Qty: 2 0RF Rx Instructions: take as directed by doctors office for bowel prep folic acid 1 mg tablet 1 mg PO DAILY Qty: 60 0RF (DME) Dexcom G6 Drywall Foreman Misc See Rx Instructions .ROUTE .MEDSUPPLY Qty: 1 0RF Rx Instructions: [place] directed [place] [place] Dexcom G6 Transmitter Device See Rx Instructions .ROUTE .MEDSUPPLY Qty: 1 0RF Rx Instructions: As directed one every 3 months (DME) Dexcom G6 Sensor Device See Rx Instructions .ROUTE .MEDSUPPLY Qty: 3 11RF Rx Instructions: As directed every 10 days insulin aspart U-100 [Novolog U-100 Insulin aspart] 100 unit/mL solution See Rx Instructions subcut DAILY 30 Days Qty: 40 3RF Rx Instructions: up to 100 units via insulin pump subcut daily; ferrous sulfate [FeroSul] 325 mg (65 mg iron) Tablet 325 mg PO DAILY Qty: 90 4RF sennosides-docusate sodium [Senokot-S] 8.6-50 mg Tablet 2 tab-cap PO BEDTIME Qty: 60 4RF acetaminophen [Arthritis Pain Relief (acetam)] 650 mg tablet extended release 1 tab PO Q8H PRN (Reason: fever) 0RF valsartan 40 mg tablet 1 tab PO DAILY 0RF naloxone [Narcan] 4 mg/actuation spray,non-aerosol intranasal 0RF digoxin [Digox] 125 mcg (0.125 mg) tablet 125 mcg PO DAILY 0RF ascorbic acid (vitamin C) 500 mg tablet 500 mg PO DAILY 0RF tramadol 50 mg tablet 50 mg PO BID PRN (Reason: Pain) 0RF baclofen 10 mg tablet 10 mg PO TID PRN (Reason: pain) 0RF Eliquis 5 mg tablet 5 mg PO BID 0RF cetirizine 10 mg tablet 10 mg PO DAILY PRN (Reason: Allergy Symptoms) 0RF spironolactone 25 mg tablet 25 mg PO DAILY 0RF gabapentin 100 mg capsule 200 mg PO BEDTIME PRN (Reason: Pain) 0RF metoprolol tartrate 100 mg tablet 100 mg PO BID 0RF (DME) FreeStyle Lite Strips Strip See Rx Instructions ea Not Applicable .MEDSUPPLY Qty: 10 0RF Rx Instructions: As directed furosemide 20 mg tablet 20 mg PO BID 0RF fluticasone propionate 50 mcg/actuation spray,suspension 2 spray intranasal DAILY PRN (Reason: Nasal Congestion) 0RF Entresto 49-51 mg tablet 1 tab PO BID 0RF cholecalciferol (vitamin D3) 50 mcg (2,000 unit) capsule 50 mcg PO DAILY Qty: 90 1RF glucose 4 gram tablet,chewable 8 - 16 g PO 0RF omeprazole 40 mg capsule,delayed release(DR/EC) 40 mg PO BID 30 Days Qty: 60 6RF Interventions: ED Discharge Assessment Last Done: 09/20/21 12:37 Discharge Date/Time: 09/20/21 12:38
== END 2021-09-20 12:38 | disposition home or self-care (01) ==
PROVIDERS: Emergency Provider Emergency Medicine; PCP Family Medicine
DX: L85.3 Xerosis cutis (principal); S30.810A Abrasion of lower back and pelvis, initial encounter; S20.419A Abrasion of unspecified back wall of thorax, initial encounter; E10.9 Type 1 diabetes mellitus without complications; I11.0 Hypertensive heart disease with heart failure; I50.9 Heart failure, unspecified; M05.9 Rheumatoid arthritis with rheumatoid factor, unspecified; X58.XXXA Exposure to other specified factors, initial encounter; Y93.9 Activity, unspecified; Y92.9 Unspecified place or not applicable; Y99.9 Unspecified external cause status
CPT/HCPCS: 99283

== ENCOUNTER 2021-10-12 10:22 | Outpatient (REF) | payer OTHER, SELFPAY ==
[2021-10-12 11:19] LABS: Estimated Average Glucose 171 mg/dL; Hemoglobin A1c % 7.6 %
[2021-10-12 11:46] LABS: Alanine Aminotransferase 11 U/L (0-31); Albumin Level 3.2 g/dL (3.5-5.0); Alkaline Phosphatase 97 U/L (39-117); Anion Gap 12 (12-20); Aspartate Amino Transferase 18 U/L (5-31); Bilirubin Total 0.3 mg/dL (0.0-1.0); Blood Urea Nitrogen 10 mg/dL (9-16); Calcium 9.4 mg/dL (8.4-10.2); Carbon Dioxide 28 mmol/L (22-29); Chloride 106 mmol/L (96-108); Cholesterol 153 mg/dL; Estimated Glomerular Filt Rate > 60; Glucose Fasting 149 mg/dL (60-99); HDL Cholesterol 41 mg/dL; LDL Cholesterol Calculated 96 mg/dl; Potassium 3.7 mmol/L (3.3-5.1); Sodium 142 mmol/L (135-145); Total Protein 6.8 g/dL (6.5-8.0); Triglycerides 81 mg/dL
[2021-10-12 11:58] LABS: HIV AB/AG Nonreactive (Nonreactive); TSH reflex Free T4 1.14 uIU/mL (0.32-4.0)
[2021-10-12 12:05] LABS: Free T4 (Free Thyroxine) 1.18 ng/dL (0.71-1.85); Thyroid Stimulating Hormone 1.19 uIU/mL (0.32-4.0); Vitamin D 25-OH Total 36.1 ng/mL (>30)
[2021-10-12 13:59] LABS: Creatinine Urine 211.65 mg/dL; Microalbum/Creatinine Ratio Ur 147.4 ug/mg cr
[2021-10-13 20:52] LABS: LDL Cholesterol Direct 88 mg/dL (<100)
[2021-10-14 12:31] LABS: Alpha Fetoprotein 3.7 ng/mL
[2021-10-14 15:06] LABS: Ceruloplasmin 39 mg/dL (18-53)
[2021-10-16 06:20] LABS: Mitochondrial Antibodies NEGATIVE (NEGATIVE)
[2021-10-16 22:31] LABS: Smooth Muscle Antibody <20 U (<20)
== END 2021-10-12 10:23 | disposition home or self-care (01) ==
LOC: HO.LAB 10:22
PROVIDERS: Nurse Practitioner Family; PCP Family Medicine; Visit Provider Nurse Practitioner Gerontology
DX: Z11.4 Encounter for screening for human immunodeficiency virus [HIV] (principal); R79.89 Other specified abnormal findings of blood chemistry; E55.9 Vitamin D deficiency, unspecified; E10.65 Type 1 diabetes mellitus with hyperglycemia
CPT/HCPCS: 36415; 80053; 80061; 82043; 82105; 82306; 82390; 83036; 83721; 84439; 84443; 86015; 86255; 86256; 87389

== ENCOUNTER → 2021-10-15 10:26 | Outpatient (BNVA) | payer OTHER, SELFPAY | PROVIDERS: PCP Family Medicine; Visit Provider Nurse Practitioner Gerontology | DX: E10.65 Type 1 diabetes mellitus with hyperglycemia (principal); E10.42 Type 1 diabetes mellitus with diabetic polyneuropathy; E78.5 Hyperlipidemia, unspecified; E55.9 Vitamin D deficiency, unspecified; E66.9 Obesity, unspecified; I10 Essential (primary) hypertension; Z79.4 Long term (current) use of insulin; Z96.41 Presence of insulin pump (external) (internal); Z68.23 Body mass index [BMI] 23.0-23.9, adult | CPT/HCPCS: 82947; Q3014 ==

== ENCOUNTER 2021-11-11 11:13 | Outpatient (REF) | payer OTHER, SELFPAY ==
--- NOTE | ~2021-11-11 | MM_ITS ---
EXAMINATION: MM SCREENING DIGITAL BREAST TOMOSYNTHESIS, BILATERAL CLINICAL INFORMATION: Screening. Asymptomatic. The lifetime risk of breast cancer based on the Tyrer-Cuzick Model is 5.4%. COMPARISON: Mammography: November 10, 2020 and studies dating back to August 03, 2013 TECHNIQUE: Digital breast tomosynthesis is performed in both the craniocaudal and mediolateral oblique views along with computer-aided detection (CAD). Synthesized 2D images are generated from the tomosynthesis. FINDINGS: The breasts are heterogeneously dense, which may obscure small masses (ACR BI-RADS breast composition Category c). There are no significant masses, abnormal calcifications, or other abnormalities. MM/MM tomosynthesis screening BI IMPRESSION: There are no significant changes from prior study. ASSESSMENT: BI-RADS 1: Negative RECOMMENDATION: Routine annual mammography screening. This patient's information was entered into a reminder system with a target due date for their next mammogram.
--- NOTE | ~2021-11-11 | MM_ITS ---
EXAMINATION: BONE DENSITOMETRY CLINICAL INDICATION: Menopausal. COMPARISON: Baseline BD dated 01/17/2014. TECHNIQUE: Using a [employer] DXA System (software version: 13.1) manufactured by [employer]™, dual-energy x-ray absorptiometry was performed of the lumbar spine and left hip. The images are of good technical quality. Summary results are attached. FINDINGS: AP SPINE L1-L4: Current: BMD 1.072 g/cm2, Z-score 0.9, T-score -0.9, normal, 0.3% decrease from baseline (<5% change is not significant). Baseline: BMD 1.075 g/cm2. LEFT FEMUR, NECK: Current: BMD 0.914 g/cm2, Z-score 1.0, T-score -0.9, normal. Baseline: BMD 0.890 g/cm2. LEFT FEMUR, TOTAL: Current: BMD 0.981 g/cm2, Z-score 1.5, T-score -0.2, normal, 0.5% decrease from baseline (<5% change is not significant). Baseline: BMD 0.986 g/cm2. IDENTIFIED RISK FACTORS: Rheumatoid arthritis, height loss, secondary osteoporosis. Early menopause, secondary osteoporosis, bilateral oophorectomy. HISTORY OF FRACTURE: None listed. MEDICATIONS: Calcium supplements or multivitamin, vitamin D. MM/XR DEXA axial skeleton IMPRESSION: 1. DIAGNOSIS: Normal bone density based on the lowest T-score value of -0.9 in the lumbar spine and femoral neck applying World Health Organization criteria. 2. 10-YEAR FRACTURE RISK PREDICTION, FRAX: Major osteoporotic fracture (clinical spine, forearm, hip or shoulder) 6.6%. Hip fracture 0.9%. 3. Treatment Recommendations: NOF guidelines recommend consideration for treatment in postmenopausal women and men age 50 and older presenting with the following: -A hip or vertebral (clinical or morphometric) fracture. -T-score less than or equal to -2.5 at the femoral neck or spine after appropriate evaluation to exclude secondary causes. -Low bone mass at the hip or spine and a 10-year fracture probability by FRAX of greater than or equal to 3% for hip fracture or greater than or equal to 20% for major osteoporotic fracture based on the [place] adapted WHO algorithm. 4. Other Recommendations: All treatment decisions require clinical judgment and consideration of individual patient factors, including patient preferences, comorbidities, previous drug use, risk factors not captured in the FRAX model (e.g. frailty, falls, vitamin D deficiency, increased bone turnover, interval significant decline in bone density) and possible under or overestimation of fracture risk by FRAX. FUTURE SCAN RECOMMENDATION: People with diagnosed cases of osteoporosis or at high risk for fracture should have regular bone mineral density tests. For patients eligible for Medicare, routine testing is allowed once every 2 years. The testing frequency can be increased to one year for patients who have rapidly progressing disease, those who are receiving or discontinuing medical therapy to restore bone mass, or have additional risk factors.
== END 2021-11-11 11:14 | disposition home or self-care (01) ==
LOC: HO.MAMMO 11:13
PROVIDERS: Visit Provider Family Medicine
DX: Z12.31 Encounter for screening mammogram for malignant neoplasm of breast (principal); Z13.820 Encounter for screening for osteoporosis; M06.9 Rheumatoid arthritis, unspecified; Z78.0 Asymptomatic menopausal state; Z90.722 Acquired absence of ovaries, bilateral
CPT/HCPCS: 77063; 77067; 77080

== ENCOUNTER → 2021-12-03 10:33 | Outpatient (BNVA) | payer OTHER, SELFPAY | PROVIDERS: PCP Family Medicine; Visit Provider Internal Medicine Pulmonary Disease | DX: R05.9 Cough, unspecified (principal); R06.00 Dyspnea, unspecified; K21.9 Gastro-esophageal reflux disease without esophagitis; Z79.899 Other long term (current) drug therapy | CPT/HCPCS: 99212 ==

== ENCOUNTER → 2022-04-01 10:28 | Outpatient (BNVA) | payer OTHER, SELFPAY | PROVIDERS: PCP Family Medicine; Visit Provider Internal Medicine Endocrinology, Diabetes & Metabolism | DX: E10.65 Type 1 diabetes mellitus with hyperglycemia (principal); Z96.41 Presence of insulin pump (external) (internal); Z79.4 Long term (current) use of insulin | CPT/HCPCS: 82947; 83036; 99212 ==

== ENCOUNTER → 2022-04-07 10:32 | Outpatient (BNVA) | payer OTHER, SELFPAY | PROVIDERS: PCP Family Medicine; Visit Provider Registered Nurse Diabetes Educator | DX: E10.65 Type 1 diabetes mellitus with hyperglycemia (principal); Z96.41 Presence of insulin pump (external) (internal) | CPT/HCPCS: 99211 ==

== ENCOUNTER → 2022-06-04 10:21 | Outpatient (BNVA) | payer OTHER, SELFPAY | PROVIDERS: PCP Family Medicine; Visit Provider Registered Nurse Diabetes Educator | DX: E10.42 Type 1 diabetes mellitus with diabetic polyneuropathy (principal) | CPT/HCPCS: 99211 ==

== ENCOUNTER → 2022-06-09 10:22 | Outpatient (BNVA) | payer OTHER, SELFPAY | PROVIDERS: PCP Family Medicine; Visit Provider Internal Medicine Pulmonary Disease | DX: R05.9 Cough, unspecified (principal); R06.00 Dyspnea, unspecified | CPT/HCPCS: 99212 ==

== ENCOUNTER → 2022-06-24 13:15 | Outpatient (BNVA) | payer OTHER, SELFPAY | PROVIDERS: PCP Family Medicine; Visit Provider Registered Nurse Diabetes Educator | DX: E10.65 Type 1 diabetes mellitus with hyperglycemia (principal); E10.42 Type 1 diabetes mellitus with diabetic polyneuropathy; Z79.4 Long term (current) use of insulin | CPT/HCPCS: 99211 ==

== ENCOUNTER → 2022-07-06 10:28 | Outpatient (BNVA) | payer OTHER, SELFPAY | PROVIDERS: PCP Family Medicine; Visit Provider Internal Medicine Endocrinology, Diabetes & Metabolism | DX: E10.65 Type 1 diabetes mellitus with hyperglycemia (principal); Z96.41 Presence of insulin pump (external) (internal) | CPT/HCPCS: 82947; 83036; 99212 ==

== ENCOUNTER 2022-10-13 07:14 | Outpatient (REF) | payer OTHER, SELFPAY ==
[2022-10-13 08:53] LABS: Cholesterol 149 mg/dL; HDL Cholesterol 53 mg/dL; LDL Cholesterol Calculated 81 mg/dl; Triglycerides 78 mg/dL
[2022-10-13 11:04] LABS: Creatinine Urine 86.69 mg/dL
== END 2022-10-13 07:15 | disposition home or self-care (01) ==
LOC: HO.LAB 07:14
PROVIDERS: PCP Family Medicine; Visit Provider Internal Medicine Endocrinology, Diabetes & Metabolism
DX: E10.65 Type 1 diabetes mellitus with hyperglycemia (principal)
CPT/HCPCS: 36415; 80061; 82043

== ENCOUNTER → 2022-10-20 09:26 | Outpatient (BNVA) | payer OTHER, SELFPAY | PROVIDERS: PCP Family Medicine; Visit Provider Internal Medicine Endocrinology, Diabetes & Metabolism | DX: E10.65 Type 1 diabetes mellitus with hyperglycemia (principal); E10.42 Type 1 diabetes mellitus with diabetic polyneuropathy; E78.5 Hyperlipidemia, unspecified; E55.9 Vitamin D deficiency, unspecified; Z79.4 Long term (current) use of insulin | CPT/HCPCS: 82947; 83036; 99212 ==

== ENCOUNTER 2022-12-23 09:30 | Outpatient (AMB) | payer OTHER, SELFPAY ==
--- NOTE | 2022-12-23 10:16 | MHC.AMDMED ---
Intake Intake Visit Reasons: DM Warehouse Order Selector Required: Yes Warehouse Order Selector Language: Laundrette Owner Name: Jack[facility] [place] Accompanied by: Other Relationship Allergies No Known Allergies Allergy (Verified 12/14/22 10:37) HPI Comprehensive Diabetes Asmnt General Diabetes type type 1 Most Recent Diabetes Results: Microalb/Creat Ratio 526.0 ug/mg cr 10/13/22 Cholesterol 149 mg/dL 10/13/22 HDL Cholesterol 53 mg/dL 10/13/22 Triglycerides 78 mg/dL 10/13/22 Creatinine 0.84 mg/dL (0.5-1.4) 12/14/22 Blood Urea Nitrogen 18 mg/dL (9-16) H 12/14/22 Sodium 142 mmol/L (135-145) 12/14/22 Potassium 4.0 mmol/L (3.3-5.1) 12/14/22 Chloride 106 mmol/L (96-108) 12/14/22 Carbon Dioxide 28 mmol/L (22-29) 12/14/22 Calcium 9.8 mg/dL (8.4-10.2) 12/14/22 AST 22 U/L (5-31) 12/14/22 ALT 17 U/L (0-31) 12/14/22 Total Protein 6.6 g/dL (6.5-8.0) 12/14/22 Albumin 3.2 g/dL (3.5-5.0) L 12/14/22 [facility] Medical History Anemia CAD (coronary artery disease) CHF (congestive heart failure) Chronic cough Chronic GERD Diabetes type 1, uncontrolled Diabetic polyneuropathy associated with type 1 diabetes mellitus Dyslipidemia Elevated liver enzymes Helicobacter pylori gastritis Hypertension Nonischemic cardiomyopathy Obesity (BMI 30-39.9) On beta justine at home Rheumatoid arthritis Seropositive rheumatoid arthritis Thrombocytopenia Vitamin D deficiency Surgical History Hx of cardiac pacemaker Hx of section Hx of colonoscopy Hx of hysterectomy Family History Father No problems noted. Mother No problems noted. 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 1% Hyperglycemia:? 64% Time in Range:? 45% Average glucose for the last 2 weeks? 195 mg/dL Patient is experiencing post prandial hyperglycemia, and overnight hyperglycemia Patient is currently taking Lantus 20 unit daily And on Humalog sliding scale Reviewed patient action of Humalog and Lantus Who patient stated that she has been changing Lantus dose based on evening glucose levels, recommended to patient she take consistent dose of Lantus 24 units daily Also reviewed with patient how to treat any hypoglycemic events with rule of 15s Patient uses fruit juice and glucose tabs to treat hypoglycemia Increased patient's Humalog sliding scale by 1 unit each step Patient is not interested in resuming insulin pump therapy at this time Reviewed how to interpret trend arrows Reminded patient that to check finger sticks if symptoms do not match sensor reading. Discussed lag time between finger stick and sensor data.? Patient able to insert sensor independently at home without issue.? Patient will follow-up with staff educator in 1 month Medications: Discontinued ferrous sulfate 325 mg PO DAILY 90 tabs 0RF pen needle, diabetic (Comfort EZ Pen [place]) Discontinued Reason: Doctor's Order As directed- injects 4 X/day 100 ea 6RF Patient Instructions: Tamora Lantus 24 unidades al d?a a la misma hora todos los d?as Tamora Novolog 15 minutos antes de cada comida use la escala de la siguiente manera:81-150 4 unidades 151-200 5 unidades >200 7 unidades Coding Level of Care Code Est Pt Level 1 (63686) Diagnoses Diabetic polyneuropathy associated with type 1 diabetes mellitus E10.42
== END 2022-12-23 10:37 | disposition home or self-care (01) ==
LOC: HO.ENCR 09:30
PROVIDERS: PCP Family Medicine; Visit Provider Registered Nurse Diabetes Educator
DX: E10.42 Type 1 diabetes mellitus with diabetic polyneuropathy (principal)

== ENCOUNTER → 2022-12-23 09:30 | Outpatient (BNVA) | payer OTHER, SELFPAY | PROVIDERS: PCP Family Medicine; Visit Provider Registered Nurse Diabetes Educator | DX: E10.42 Type 1 diabetes mellitus with diabetic polyneuropathy (principal) | CPT/HCPCS: 99211 ==

== ENCOUNTER 2022-12-29 10:25 | Outpatient (AMB) | payer OTHER, SELFPAY ==
[2022-12-29 10:29] VITALS: BP 134/74; PULSE 78; O2SAT 100; BMI 26.7
--- NOTE | 2022-12-29 10:29 | A.OFFVIS_ITS ---
Intake Vital Signs 12/29/22 10:29 Height 4 ft 11 in Weight 132 lb 4.438 oz BMI 26.7 BP 134/74 Blood Pressure Location Rt brachial Position Sitting Pulse 78 Pulse Source Pulse Oximeter Pulse Oximetry (%) 100 Oxygen Delivery Method Room Air Intake Visit Reasons: chronic cough Allergies No Known Allergies Allergy (Verified 12/29/22 10:37) HPI chronic cough HPI Details 72-year-old lady, nonsmoker, with underlying AFib, chronic GERD, rheumatoid arthritis on methotrexate followed for pulmonary component of dyspnea on exertion and cough.? After the last office visit patient continued on furosemide 40 mg with good control of her lower extremity edema and dyspnea. PPI twice a day has improved her cough. However she still complains of component of dry cough. [facility] Medical History (Updated 12/29/22 @ 10:48 by Jona Lowe MD) Anemia CAD (coronary artery disease) CHF (congestive heart failure) Chronic cough Chronic GERD Diabetes type 1, uncontrolled Diabetic polyneuropathy associated with type 1 diabetes mellitus Dyslipidemia Elevated liver enzymes Helicobacter pylori gastritis Hypertension Nonischemic cardiomyopathy Obesity (BMI 30-39.9) On beta justine at home Rheumatoid arthritis Seropositive rheumatoid arthritis Thrombocytopenia Vitamin D deficiency Surgical History Hx of cardiac pacemaker Hx of section Hx of colonoscopy Hx of hysterectomy Family History Father No problems noted. Mother No problems noted. Maternal Aunt Diabetes mellitus Social History Household Members: None Housing: Apartment Are you a primary district manager primary care sales to a significant other at home: No Do you presently have visiting nurse or other home services: Yes (telephone) Alcohol intake: never Patient Tobacco Use Status: Never used Tobacco service: No Current occupational status: retired Current occupation: rt handed Review of Systems Const Denies daytime sleepiness, Denies excessive sweating, Denies fatigue, Denies fever(s), Denies lethargy, Denies malaise, Denies night sweats, Denies snoring and Denies weight loss Eyes Denies blurry vision and Denies itchy eyes ENT Denies nasal congestion, Denies post nasal drip, Denies sinus pain, Denies sinus pressure and Denies other ( Thrush) Card Denies chest pain, Denies pedal edema, Denies dyspnea, Denies orthopnea and Denies paroxysmal nocturnal dyspnea Resp Reports cough, Denies hemoptysis, Denies excessive phlegm production, Denies dyspnea, Denies snoring and Denies wheezing GI Denies abdominal pain and Denies heartburn Musc Denies myalgias, Denies arthralgias and Denies joint swelling Skin/Breast Denies rash Neuro Denies memory loss and Denies seizure-like activity Psych Denies abnormal sleep pattern, Denies anxiety and Denies memory loss Endo Denies excessive sweating, Denies fatigue and Denies heat intolerance Angelo/Lymph Denies easy bruising Aller/Immun Denies itchy eyes, Denies seasonal rhinorrhea and Denies wheezing Physical Exam Vital Signs: Last Vital Signs Pulse 78 12/29/22 10:29 BP 134/74 12/29/22 10:29 Pulse Ox 100 12/29/22 10:29 Oxygen Delivery Method Room Air 12/29/22 10:29 BMI result Body Mass Index 26.7 Const General: no acute distress and alert Nutritional Appearance: not obese Orientation/consciousness: Other orientation findings ( oriented) HEENT Head: Yes atraumatic Eyes General: appearance normal, both eyes and all related structures Sclerae: sclerae normal EOM: EOMs intact bilaterally Neck Neck: Yes supple Lymphatic: no lymphadenopathy noted Resp Effort & Inspection: normal respiratory effort and no use of accessory muscles Auscultation: clear to auscultation bilaterally Cardio Rate: regular rate Rhythm: regular rhythm Heart sounds: no gallops, no murmurs and no rubs Skin General skin exam: other ( warm) Extrem General: No clubbing, No cyanosis and No edema Assessment & Plan Assessment & Plan (1) Interstitial lung disease: Code(s): J84.9 - Interstitial pulmonary disease, unspecified (2) Methotrexate toxicity: Code(s): T45.1X1A - Poisoning by antineoplastic and immunosuppressive drugs, accidental (unintentional), initial encounter (3) Cough: Code(s): R05.9 - Cough, unspecified (4) Dyspnea: Code(s): R06.00 - Dyspnea, unspecified Plan Dyspnea lower extremity edema well controlled on current hours of furosemide at 40 mg daily. Continue current regimen. Cough has improved on PPI, however still with dry cough component on the background of chronic methotrexate use and underlying rheumatoid arthritis. May have a component of rheumatoid arthritis associated interstitial lung disease. Will obtain CT chest for further evaluation. Will start on empiric Flovent. Orders: Orders CT chest wo IV con Today J84.9 - Interstitial pulmonary disease, unspecified, R05.9 - Cough, unspecified, T45.1X1A - Poisoning by antineoplastic and immunosuppressive drugs, accidental (unintentional), initial encounter Medications: New fluticasone propionate 220 mcg/actuation (Flovent HFA) administer with spacer 1 puff inhalation BID 12 grams 3RF 30 days Changed From benzonatate 100 mg PO TID PRN cough To benzonatate 100 mg PO TID PRN 60 caps 3RF cough 30 days Discontinued ferrous sulfate 325 mg PO DAILY 90 tabs 0RF Coding Level of Care Code Est Pt Level 4 (46308) Diagnoses Interstitial lung disease J84.9 Methotrexate toxicity T45.1X1A Cough R05.9 Dyspnea R06.00
== END 2022-12-29 10:49 | disposition home or self-care (01) ==
PROVIDERS: PCP Family Medicine; Visit Provider Internal Medicine Pulmonary Disease
DX: J84.9 Interstitial pulmonary disease, unspecified (principal); T45.1X1A Poisoning by antineoplastic and immunosuppressive drugs, accidental (unintentional), initial encounter; R05.9 Cough, unspecified; R06.00 Dyspnea, unspecified
CPT/HCPCS: 99214

== ENCOUNTER → 2022-12-29 10:25 | Outpatient (BNVA) | payer OTHER, SELFPAY | PROVIDERS: PCP Family Medicine; Visit Provider Internal Medicine Pulmonary Disease | DX: J84.9 Interstitial pulmonary disease, unspecified (principal); R05.9 Cough, unspecified; R06.00 Dyspnea, unspecified; T45.1X1D Poisoning by antineoplastic and immunosuppressive drugs, accidental (unintentional), subsequent encounter | CPT/HCPCS: 99212 ==

== ENCOUNTER 2023-02-03 10:23 | Outpatient (REF) | payer OTHER, SELFPAY ==
--- NOTE | ~2023-02-03 | CT_ITS ---
EXAMINATION: CT CHEST WITHOUT CONTRAST CLINICAL INFORMATION: Cough. COMPARISON: Previous chest x-ray October 2020 TECHNIQUE: Multidetector volumetric CT imaging of the chest was done. Axial MIP volume rendering provided. Sagittal and coronal reformatted images were obtained. This CT examination was performed using dose optimization techniques as appropriate, variously including the following: *Automated exposure control *Adjustment of mA and/or kV according to patient size (this includes techniques or standardized protocols for targeted exams where dose is matched to indication/reason for exam; i.e. extremities or head) *Use of iterative reconstruction technique DLP: 123 mGy-cm FINDINGS: LUNGS: There are scattered areas of mild bronchiectasis, bronchial wall thickening and increased peribronchial attenuation suggestive of airways disease. This is seen diffusely throughout the lungs. There is heterogeneous attenuation of the lungs probably related to hypoventilatory changes or areas of air-trapping. There are scattered areas of subsegmental atelectasis. There is a 7 mm slightly spiculated right lower lobe nodule axial image 384 series 5. There is a 5 mm right lower lobe nodule axial image 297 series 5. There is a 4 mm peripheral or subpleural right lower lobe at nodule axial image 327 series 5. MEDIASTINUM: The heart is enlarged. Left subclavian pacemaker AICD devices appear unchanged. Enlarged thyroid goiter. Follow-up thyroid ultrasound recommended. No enlarged hilar or mediastinal lymph nodes. Trace pericardial effusion. CORONARY ARTERY CALCIFICATION: Mild PLEURA: There is no pleural effusion. No pleural mass or thickening. AXILLA: No lymphadenopathy. UPPER ABDOMEN: Unremarkable. OSSEOUS STRUCTURES: There are degenerative changes of the spine. CT/CT chest wo IV con IMPRESSION: Airways disease. Several pulmonary nodules, largest measuring 7 mm in the right lower lobe. According to the UPDATED 2017 Fleischner Society recommendations, the advised follow-up imaging for 6-8 mm (multiple solid nodules): in a low risk patient (minimal or no smoking or other known risk factors for malignancy), initial follow-up CT at 3-6 months and consider optional CT at 18-24 months, while in a high risk patient (history of smoking or other known risk factors), initial follow-up CT at 3-[address] at 18-24 months. Enlarged thyroid goiter. Follow-up thyroid ultrasound recommended. Enlarged heart. Trace pericardial effusion. Fleischner guidelines were followed.
== END 2023-02-03 10:24 | disposition home or self-care (01) ==
LOC: HO.CT 10:23
PROVIDERS: PCP Family Medicine; Visit Provider Internal Medicine Pulmonary Disease
DX: J84.9 Interstitial pulmonary disease, unspecified (principal); R05.9 Cough, unspecified; T45.1X1A Poisoning by antineoplastic and immunosuppressive drugs, accidental (unintentional), initial encounter
CPT/HCPCS: 71250

== ENCOUNTER 2023-02-17 10:57 | Outpatient (REF) | payer OTHER, SELFPAY ==
--- NOTE | ~2023-02-17 | MM_ITS ---
EXAMINATION: MM SCREENING DIGITAL BREAST TOMOSYNTHESIS, BILATERAL CLINICAL INFORMATION: Screening. Asymptomatic. COMPARISON: Mammography: This study is compared with prior exams dating back to 2017. TECHNIQUE: Digital breast tomosynthesis is performed in both the craniocaudal and mediolateral oblique views along with computer-aided detection (CAD). Synthesized 2D images are generated from the tomosynthesis. FINDINGS: The breasts are heterogeneously dense, which may obscure small masses (ACR BI-RADS breast composition Category c). There are no significant masses, abnormal calcifications, or other abnormalities. Few, benign calcifications are present in each breast. MM/MM tomosynthesis screening BI IMPRESSION: No mammographic evidence of malignancy. ASSESSMENT: BI-RADS BI-RADS 2 - Benign Findings RECOMMENDATION: Routine annual mammography screening. 1 year F/U This examination should not preclude the clinical evaluation of a suspicious palpable abnormality. This patient's information was entered into a reminder system with a target due date for their next mammogram.
== END 2023-02-17 10:58 | disposition home or self-care (01) ==
LOC: HO.MAMMO 10:57
PROVIDERS: PCP Family Medicine; Visit Provider Family Medicine
DX: Z12.31 Encounter for screening mammogram for malignant neoplasm of breast (principal)
CPT/HCPCS: 77063; 77067

== ENCOUNTER → 2023-02-17 11:15 | Outpatient (BNV) | payer OTHER, SELFPAY | PROVIDERS: PCP Family Medicine; Visit Provider Radiology Diagnostic Radiology | DX: Z12.31 Encounter for screening mammogram for malignant neoplasm of breast (principal) | CPT/HCPCS: 77063; 77067 ==

== ENCOUNTER 2023-04-01 07:18 | Outpatient (REF) | payer OTHER, SELFPAY ==
--- NOTE | ~2023-04-01 | XR_ITS ---
EXAMINATION: XR CHEST CLINICAL INFORMATION: Chronic cough for one COMPARISON: 02/03/2023 CT chest.. 5. 23/10/2020 chest radiograph. TECHNIQUE: 2 views of the chest were obtained. FINDINGS: There is no gross pneumothorax. Cardiac silhouette remains enlarged. Redemonstration of pacemaker/defibrillator placed. No gross pleural effusion. No focal consolidation to suggest pneumonia. Degenerative changes in the thoracic spine. XR/XR chest 2V IMPRESSION: Cardiac silhouette remains enlarged. No evidence of pneumonia.
[2023-04-01 07:34] LABS: MANUAL DIFF FLAG NO
[2023-04-01 08:21] LABS: Prothrombin Time 11.9 SEC (11.1-13.3)
[2023-04-01 08:30] LABS: Basophils Absolute Auto 0.1 X10*3/uL (0.0-0.2); Basophils Percent Auto 1.1 % (0-2); Eosinophils Absolute Auto 0.2 X10*3/uL (0.0-0.4); Eosinophils Percent Auto 4.5 % (0-4); Hematocrit 33.9 % (37.0-47.0); Hemoglobin 10.6 g/dl (12.0-16.0); Imm Gran Abs Auto 0.04 X10*3/uL (0.00-0.03); Imm Gran Pct Auto 0.7 % (0.0-0.4); Lymphocytes Absolute Auto 1.5 X10*3/uL (1.2-4.9); Lymphocytes Percent Auto 27.1 % (20-40); Mean Corpuscular HGB Conc 31.3 g/dl (31.0-35.0); Mean Corpuscular Hemoglobin 23.3 pg (27.0-33.0); Mean Corpuscular Volume 74.7 fL (80.0-98.0); Monocytes Absolute Auto 0.5 X10*3/uL (0.1-1.2); Monocytes Percent Auto 8.6 % (2-11); Neutrophils Absolute Auto 3.1 x10*3/uL (2.0-8.3); Platelet Count 102 X10*3/uL (160-400); Red Blood Count 4.54 X10*6/uL (4.20-5.50); Red Cell Distribution Width 13.9 % (11.0-16.0); White Blood Count 5.4 X10*3/uL (4.8-10.8)
[2023-04-01 08:50] LABS: Anion Gap 11 (12-20); Blood Urea Nitrogen 18 mg/dL (9-16); Calcium 9.7 mg/dL (8.4-10.2); Carbon Dioxide 26 mmol/L (22-29); Chloride 104 mmol/L (96-108); Estimated Glomerular Filt Rate > 60; Glucose Random 228 mg/dL (60-115); Potassium 3.9 mmol/L (3.3-5.1); Sodium 137 mmol/L (135-145)
== END 2023-04-01 07:19 | disposition home or self-care (01) ==
LOC: HO.LAB 07:18
PROVIDERS: Visit Provider Internal Medicine Cardiovascular Disease
DX: R05.9 Cough, unspecified (principal); Z95.0 Presence of cardiac pacemaker
CPT/HCPCS: 36415; 71046; 80048; 85025; 85610

== ENCOUNTER 2023-04-25 10:21 | Outpatient (REF) | payer OTHER, SELFPAY ==
--- NOTE | ~2023-04-25 | US_ITS ---
EXAMINATION: US THYROID CLINICAL INFORMATION: Abnormal findings on diagnostic imaging. COMPARISON: CT chest without contrast 02/03/2023. TECHNIQUE: Linear transducer mena-scale and color Doppler examination with attention to the region of the thyroid. Technically difficult study secondary to thyroid located low in neck, bilateral lower poles limited visualization. FINDINGS: SIZE: Measurements of the thyroid lobes and nodules are given in sagittal, anteroposterior and transverse dimensions respectively. Right Thyroid Lobe: 4.7 x 2.7 x 2.4 cm, volume 14.4 mL. Parenchyma: The gland echotexture is heterogeneous. Thyroid vascularity is normal. Left Thyroid Lobe: 4.5 x 2.7 x 2.4 cm, volume 13.9 mL. Parenchyma: The gland echotexture is heterogeneous. Thyroid vascularity is normal. Isthmus: 0.3 cm in maximum AP dimension. Estimated total number of nodules greater than or equal to 1 cm: 4. Registrar Assistant nodules are described as follows: 1. Location: Right isthmus inferior. Size: 0.8 x 0.4 x 0.9 cm, volume 0.15 mL. Nodule characteristics: Composition: Solid (2). Echogenicity: Hypoechoic (2). Shape: Not taller than wide (0). Margins: Smooth (0). Echogenic Foci: None (0). ACR TI-RADS total points: 4 ACR TI-RADS category: 4 2. Location: Right inferior. Size: 1.1 x 0.9 x 0.4 cm, volume 0.2 mL. Nodule characteristics: Composition: Cystic(0). ACR TI-RADS total points: 0 ACR TI-RADS category: 1 3. Location: Right inferior. Size: 2.2 x 1.9 x 1.6 cm, volume 2.5 mL. Nodule characteristics: Composition: Solid (2). Echogenicity: Hyperechoic (1). Shape: Taller than wide (3). Margins: Ill-defined (0). Echogenic Foci: None (0). ACR TI-RADS total points: 6 ACR TI-RADS category: 4 4. Location: Left mid. Size: 2.2 x 1.1 x 2.0 cm, volume 2.4 mL. Nodule characteristics: Composition: Solid/almost completely solid (2). Echogenicity: Hyperechoic (1). Shape: Not taller than wide (0). Margins: Smooth (0). Echogenic Foci: None (0). ACR TI-RADS total points: 3 ACR TI-RADS category: 3 5. Location: Left inferior. Size: 2.0 x 1.8 x 1.4 cm, volume 2.7 mL. Nodule characteristics: Composition: Solid (2). Echogenicity: Hyperechoic (1). Shape: Not taller than wide (0). Margins: Smooth (0). Echogenic Foci: None (0). ACR TI-RADS total points: 3 ACR TI-RADS category: 3 NODES: No lymphadenopathy is seen in the tissue surrounding the thyroid gland. US/US thyroid IMPRESSION: 1. A 2.2 cm inferior thyroid lobe TR 4 nodule meets ACR biopsy criteria and is amenable to ultrasound-guided biopsy, if clinically indicated and not already performed. 2. There is a diffuse goiter. 3. There is heterogeneous thyroid echotexture, consistent with thyroiditis. ACR TI-RADS RECOMMENDATION REFERENCE: Ultrasound-guided fine-needle aspiration, followup ultrasound, no further follow up. * TR1 (0 point) and TR2 (2 points): No FNA or follow up. * TR3 (3 points): FNA if more than or equal to 2.5 cm in maximum dimension, followup ultrasound in 1, 3 and 5 years if 1.5 to 2.4 cm in maximum dimension. * TR4 (4-6 points): FNA if more than or equal to 1.5 cm in maximum dimension, followup ultrasound in 1, 2, 3 and 5 years if 1 to 1.4 cm in maximum dimension. * TR5 (more than or equal to 7 points): FNA if more than or equal to 1 cm in maximum dimension, followup ultrasound every year for 5 years if 0.5 to 0.9 cm in maximum dimension. * TR3, TR4 or TR5 nodules that are below the size threshold for followup receive no follow up.
== END 2023-04-25 10:22 | disposition home or self-care (01) ==
LOC: HO.US 10:21
PROVIDERS: PCP Family Medicine; Visit Provider Family Medicine
DX: R93.89 Abnormal findings on diagnostic imaging of other specified body structures (principal)
CPT/HCPCS: 76536

== ENCOUNTER 2023-04-27 10:15 | Outpatient (AMB) | payer OTHER, SELFPAY ==
--- NOTE | 2023-04-27 10:52 | MHC.AMDMED ---
Intake Intake Visit Reasons: DM-CONFIRMED Emery Wheel Molder Required: Yes Emery Wheel Molder Language: Head Banquet Waitress Name: Julisa [facility] Information Interpreted: non-clinical & clinical Accompanied by: Other Relationship Allergies No Known Allergies Allergy (Verified 12/29/22 10:37) HPI Comprehensive Diabetes Asmnt Most Recent Diabetes Results: Microalb/Creat Ratio 526.0 ug/mg cr 10/13/22 Cholesterol 149 mg/dL 10/13/22 HDL Cholesterol 53 mg/dL 10/13/22 Triglycerides 78 mg/dL 10/13/22 Creatinine 0.91 mg/dL (0.5-1.4) 04/01/23 Blood Urea Nitrogen 18 mg/dL (9-16) H 04/01/23 Sodium 137 mmol/L (135-145) 04/01/23 Potassium 3.9 mmol/L (3.3-5.1) 04/01/23 Chloride 104 mmol/L (96-108) 04/01/23 Carbon Dioxide 26 mmol/L (22-29) 04/01/23 Calcium 9.7 mg/dL (8.4-10.2) 04/01/23 AST 22 U/L (5-31) 12/14/22 ALT 17 U/L (0-31) 12/14/22 Total Protein 6.6 g/dL (6.5-8.0) 12/14/22 Albumin 3.2 g/dL (3.5-5.0) L 12/14/22 [facility] Medical History (Updated 12/29/22 @ 10:48 by Jona Lowe MD) Helicobacter pylori gastritis Chronic cough On beta justine at home Nonischemic cardiomyopathy CHF (congestive heart failure) CAD (coronary artery disease) Thrombocytopenia Anemia Chronic GERD Elevated liver enzymes Seropositive rheumatoid arthritis Obesity (BMI 30-39.9) Rheumatoid arthritis Vitamin D deficiency Dyslipidemia Hypertension 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 Mother No problems noted. 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 Hyperglycemia:? 58% Time in Range:? 41% Average glucose for the last 2 weeks? 201 mg/dL Patient is having increased blood sugar excursion between 10 and 11 pm at night. Glucose stays elevated over night on most nights. Patient reports snacking on crackers and cookies, before bed Discussed with patient reducing amount of carbohydrate snacks at bedtime Suggested low-fat cheese, or mix nuts instead of crackers Patient's last A1c in October 2022 9.2% Discussed with patient she is overdue for A1c, message sent to Dr. Montes to enter order for A1c Reviewed how to interpret trend arrows Reminded patient that to check finger sticks if symptoms do not match sensor reading. Discussed lag time between finger stick and sensor data.? Patient able to insert sensor independently at home without issue.? Plan Patient has follow-up appointment with Dr. 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
== END 2023-04-27 10:57 | disposition home or self-care (01) ==
PROVIDERS: PCP Family Medicine; Visit Provider Registered Nurse Diabetes Educator
DX: E10.42 Type 1 diabetes mellitus with diabetic polyneuropathy (principal)

== ENCOUNTER → 2023-04-27 10:15 | Outpatient (BNVA) | payer OTHER, SELFPAY | PROVIDERS: PCP Family Medicine; Visit Provider Registered Nurse Diabetes Educator | DX: E10.42 Type 1 diabetes mellitus with diabetic polyneuropathy (principal) | CPT/HCPCS: 99211 ==

== ENCOUNTER 2023-05-26 10:21 | Outpatient (AMB) | payer OTHER, SELFPAY ==
[2023-05-26 10:28] VITALS: BP 117/58; PULSE 72; O2SAT 99; BMI 27.8
--- NOTE | 2023-05-26 10:28 | A.OFFVIS_ITS ---
Intake Vital Signs 05/26/23 10:28 Height 4 ft 11 in Weight 137 lb 12.623 oz BMI 27.8 BP 117/58 L Blood Pressure Location Lt brachial Position Sitting Pulse 72 Pulse Source Doppler Pulse Oximetry (%) 99 Oxygen Delivery Method Room Air Intake Visit Reasons: chronic cough Logging Specialist Required: Yes Logging Specialist Name: Gavi Sherman Brown Allergies No Known Allergies Allergy (Verified 05/26/23 10:29) HPI chronic cough HPI Details 72-year-old lady, nonsmoker, with underl molly AFib, chronic GERD, rheumatoid arthritis on methotrexate followed for pulmonary component of dyspnea on exertion and cough.? Patient has been using furosemide 20 mg daily with good control of dyspnea on exertion and lower extremity edema. She does continue to complain of ongoing cough with good response to Tessalon, however it is on covered by her insurance. Patient did use Flovent in under noticed moderate symptomatic relief. She did complete her CT chest that showed no evidence of underlying fibrosis, but pulmonary nodules. 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 Mother No problems noted. Maternal Aunt Diabetes mellitus Social History Household Members: None Housing: Apartment Are you a primary veterinarian laboratory animal care to a significant other at home: No Do you presently have visiting nurse or other home services: Yes (telephone) Alcohol intake: never Patient Tobacco Use Status: Never used Tobacco service: No Current occupational status: retired Current occupation: rt handed Review of Systems Const Denies daytime sleepiness, Denies excessive sweating, Denies fatigue, Denies fever(s), Denies lethargy, Denies malaise, Denies night sweats, Denies snoring and Denies weight loss Eyes Denies blurry vision and Denies itchy eyes ENT Denies nasal congestion, Denies post nasal drip, Denies sinus pain, Denies sinus pressure and Denies other ( Thrush) Card Denies chest pain, Denies pedal edema, Denies dyspnea, Denies orthopnea and Denies paroxysmal nocturnal dyspnea Resp Denies cough, Denies hemoptysis, Denies excessive phlegm production, Denies dyspnea, Denies snoring and Denies wheezing GI Denies abdominal pain and Denies heartburn Musc Denies myalgias, Denies arthralgias and Denies joint swelling Skin/Breast Denies rash Neuro Denies memory loss and Denies seizure-like activity Psych Denies abnormal sleep pattern, Denies anxiety and Denies memory loss Endo Denies excessive sweating, Denies fatigue and Denies heat intolerance Angelo/Lymph Denies easy bruising Aller/Immun Denies itchy eyes, Denies seasonal rhinorrhea and Denies wheezing Physical Exam Vital Signs: Last Vital Signs Pulse 72 05/26/23 10:28 BP 117/58 L 05/26/23 10:28 Pulse Ox 99 05/26/23 10:28 Oxygen Delivery Method Room Air 05/26/23 10:28 BMI result Body Mass Index 27.8 Const General: no acute distress and alert Nutritional Appearance: not obese Orientation/consciousness: Other orientation findings ( oriented) HEENT Head: Yes atraumatic Eyes General: appearance normal, both eyes and all related structures Sclerae: sclerae normal EOM: EOMs intact bilaterally Neck Neck: Yes supple Lymphatic: no lymphadenopathy noted Resp Effort & Inspection: normal respiratory effort and no use of accessory muscles Auscultation: clear to auscultation bilaterally Cardio Rate: regular rate Rhythm: regular rhythm Heart sounds: no gallops, no murmurs and no rubs Skin General skin exam: other ( warm) Extrem General: No clubbing, No cyanosis and No edema Assessment & Plan Assessment & Plan (1) Dyspnea: Code(s): R06.00 - Dyspnea, unspecified Plan: Well controlled on current regimen of Lasix 40 mg daily. Continue current regimen. (2) Cough: Code(s): R05.9 - Cough, unspecified Plan: On the moderate response to Flovent, will change to Breo. Continue Tessalon. Will also add a course of azithromycin. (3) Pulmonary nodules: Code(s): R91.8 - Other nonspecific abnormal finding of lung field Plan: Results of CT chest reviewed, no underlying fibrosis, however 7 mm and under pulmonary nodules. Will repeat CT chest in 6 months. Orders: Orders CT chest wo IV con 09/25/23 R91.8 - Other nonspecific abnormal finding of lung field Medications: New azithromycin For 250 mg dose pack: take 500 mg today (day 1), then 250 mg for 4 days (days 2-5) PO 6 tabs 0RF Breo Ellipta 200-25 mcg/dose (fluticasone furoate-vilanterol) 1 inh inhalation DAILY 1 ea 6RF 30 days NS Discontinued fluticasone propionate 220 mcg/actuation (Flovent HFA) administer with spacer Discontinued Reason: Doctor's Order 1 puff inhalation BID 12 grams 3RF 30 days Coding Level of Care Code Est Pt Level 4 (38755) Diagnoses Dyspnea R06.00 Cough R05.9 Pulmonary nodules R91.8
== END 2023-05-26 10:47 | disposition home or self-care (01) ==
PROVIDERS: PCP Family Medicine; Visit Provider Internal Medicine Pulmonary Disease
DX: R06.00 Dyspnea, unspecified (principal); R05.9 Cough, unspecified; R91.8 Other nonspecific abnormal finding of lung field
CPT/HCPCS: 99214

== ENCOUNTER 2023-05-26 10:21 | Outpatient (REF) | payer OTHER, SELFPAY ==
[2023-05-26 12:15] LABS: Estimated Average Glucose 258 mg/dL; Hemoglobin A1c % 10.6 % (<6.0)
== END 2023-05-26 10:22 | disposition home or self-care (01) ==
LOC: HO.LAB 10:21
PROVIDERS: Absent Provider Internal Medicine Endocrinology, Diabetes & Metabolism; PCP Family Medicine; Visit Provider Internal Medicine Pulmonary Disease
DX: E10.65 Type 1 diabetes mellitus with hyperglycemia (principal); R05.3 Chronic cough; I48.91 Unspecified atrial fibrillation; R06.00 Dyspnea, unspecified; R91.8 Other nonspecific abnormal finding of lung field
CPT/HCPCS: 36415; 83036; 99212

== ENCOUNTER 2023-06-27 10:42 | Outpatient (AMB) | payer OTHER, SELFPAY ==
--- NOTE | 2023-06-27 10:50 | A.OFFVIS_ITS ---
Intake Vital Signs 06/27/23 10:51 Height 4 ft 11 in Weight 141 lb 15.643 oz BMI 28.7 BP 122/82 Blood Pressure Location Lt brachial Position Sitting Pulse 56 Pulse Source Pulse Oximeter Intake Visit Reasons: dm1 Intake Note: Patient presents today to follow up on D1MT. Last Diabetic Eye exam: 06/2022 Last Podiatry Visit: 03/2023 Random Glucose: 74 mg/dl HgA1C:10.6% 05/26/23 Medical Care Evaluation Specialist Required: Yes Medical Care Evaluation Specialist Language: Party Plan Sales Agent Name: Vi medical staff Information Interpreted: non-clinical & clinical Accompanied by: Other Relationship Allergies No Known Allergies Allergy (Verified 06/27/23 10:57) Medication List - Last Reconciled 06/27/23 by Baldev Montes MD acetaminophen ER (Arthritis Pain Relief (acetaminophen) ER) 1 tab PO Q8H PRN apixaban (Eliquis) 5 mg PO BID ascorbic acid (vitamin C) 500 mg PO DAILY atorvastatin 10 mg PO DAILY baclofen 10 mg PO TID PRN benzonatate 100 mg PO TID PRN 30 days blood sugar diagnostic As directed blood sugar diagnostic (FreeStyle Lite Strips) TEST BLOOD SUGAR FOUR TIMES DAILY blood-glucose meter (FreeStyle Lite Meter kit) As directed blood-glucose meter,continuous (Dexcom G6 Arranging Funeral Director) As directed blood-glucose sensor (Dexcom G6 Sensor device) As directed every 10 days blood-glucose transmitter (Dexcom G6 Transmitter device) As directed one every 3 months Breo Ellipta 200-25 mcg/dose (fluticasone furoate-vilanterol) 1 inh inhalation DAILY 30 days NS cetirizine 10 mg PO DAILY cholecalciferol (vitamin D3) 50 mcg PO DAILY digoxin (Digox) 125 mcg PO DAILY ferrous sulfate (FeroSul) 325 mg PO DAILY fluticasone propionate 50 mcg/actuation 2 sprays intranasal DAILY PRN folic acid 1 mg PO DAILY furosemide 40 mg PO DAILY gabapentin 200 mg PO BEDTIME PRN glucose 8 - 16 grams PO NEEDED PRN insulin aspart U-100 (Novolog FlexPen U-100 Insulin aspart) subcutaneously inject 3-6 units 3 times a day; insulin glargine (Lantus Solostar U-100 Insulin) 25 units (0.25 mL) subcut BID lancets (TRUEplus Lancets) As directed methotrexate sodium 12.5 mg (5 x 2.5 mg) PO QWEEK metoprolol tartrate 100 mg PO BID 30 days naloxone 4 mg/actuation (Narcan) 4 mg intranasal NEEDED PRN omeprazole 40 mg PO BID pen needle, diabetic (UltiCare Pen Needle) As directed pen needle, diabetic (BD Ultra-Fine Thania Pen Needle) USE DIRECTED FOUR TIMES DAILY sacubitril-valsartan 49-51 mg (Entresto) 1 tab PO BID sennosides-docusate sodium 8.6-50 mg (Senokot-S) 2 tab-caps (2 x 8.6-50 mg) PO BEDTIME spironolactone 25 mg PO DAILY tramadol 50 mg PO BID PRN triamcinolone acetonide intranasal HPI HPI Comments History of Present Illness Details Patient is a 72-year-old female with DM type 1 diagnosed 2009 who presents for management of diabetes . Past medical history: DM1, HTN, HLD, CHF, CAD, RA Micro and macrovascular complications: CAD Diabetes medications: Lantus 25 units daily ?Humalog scale as follows: 81-150? 3 units 151-200 4 units >200 6 units Continuous glucose monitoring the past 2 weeks Dexcom download shows: . Average glucose is 185. Standard deviation of 81Range is 62 to high. Glucoses ranged 58% of the time with 41% hyperglycemia and 1% hypoglycemia. 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: Gear Shaper Set Up Operator: denies Dental exam: has upcoming appointment Ophthalmology evaluation:, last saw optho -has appt on Tue this week reports no retinopathy Other specialists: Rhuematologist Laboratory Tests 10/12/21 10/12/21 10/12/21 10:33 10:38 10:38 Creatinine 0.78 Estimated GFR > 60 Hemoglobin A1c % 7.6 Triglycerides 81 Cholesterol 153 D LDL Cholesterol Di rect LDL Cholesterol, C alc 96 HDL Cholesterol 41 25-OH Vitamin D To donya TSH Free T4 Microalb/Creat Rat io 147.4 10/12/21 10/12/21 10:38 10:38 Creatinine Estimated GFR Hemoglobin A1c % Triglycerides Cholesterol LDL Cholesterol Di rect 88 LDL Cholesterol, C alc HDL Cholesterol 25-OH Vitamin D To donya 36.1 TSH 1.19 Free T4 1.18 Microalb/Creat Rat io [facility] Medical History (Updated 05/26/23 @ 10:48 by Jona Lowe MD) Helicobacter pylori gastritis Chronic cough On beta justine at home Nonischemic cardiomyopathy CHF (congestive heart failure) CAD (coronary artery disease) Thrombocytopenia Anemia Chronic GERD Elevated liver enzymes Seropositive rheumatoid arthritis Obesity (BMI 30-39.9) Rheumatoid arthritis Vitamin D deficiency Dyslipidemia Hypertension 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 Mother No problems noted. Maternal Aunt Diabetes mellitus Social History Household Members: None Housing: Apartment Are you a primary career guidance technician to a significant other at home: No Do you presently have visiting nurse or other home services: Yes (telephone) Alcohol intake: never Patient Tobacco Use Status: Never used Tobacco service: No Current occupational status: retired Current occupation: rt handed Physical Exam Vital Signs: Last Vital Signs Pulse 56 06/27/23 10:51 BP 122/82 06/27/23 10:51 BMI result Body Mass Index 28.7 Absence of Cushingoid features. Absence of acromegalic features. Neck exam reveals nl size thyroid about 15 gms. No thyroid nodules palpable. No carotid bruits present. Lungs CTA. Heart S1 S2, Reg R/R. No M/R/ G. Skin exam reveals absence of vitiligo or acanthosis nigricans. Abdominal exam reveals Soft NT/ND with NA BS. No organomegaly present. Neck Other: . Extrem Other: Visual exam of foot performed. No ulcerations or open lesions. No onchomycosis, no callouses.Pulses 2 + distally Sensation intact to monofilament exam. Vibratory sensation sensed is intact with 128 Hz tuning fork Results Reviewed Results Reviewed: Laboratory Last Values Glucose (Clinic) 74 mg/dL (60-115) 06/27/23 11:02 Assessment & Plan Assessment & Plan (1) Diabetes type 1, uncontrolled: Code(s): E10.65 - Type 1 diabetes mellitus with hyperglycemia Plan: This is a 71-year-old female with history of type 1 diabetes being treated with basal-bolus insulin with poor glycemic control and known microvascular complications namely neuropathy. Plan is to to tighten the insulin scale pre meals to 81-150? 5 units 151-200 6 u and >250 7 units and decrease the Lantus to 20 units I will schedule her for follow-up with the clinical staff educator . I did tell report any further hypoglycemia for adjustment the regimen. She will also talk to clinical staff educator about alternative pumps and she will discuss this with the clinical staff educator Coding Level of Care Code Est Pt Level 4 (62548) Diagnoses Diabetes type 1, uncontrolled E10.65
[2023-06-27 10:51] VITALS: BP 122/82; PULSE 56; BMI 28.7
[2023-06-27 11:06] LABS: Glucose, Whole Blood 74 mg/dL (60-115)
== END 2023-06-27 11:56 | disposition home or self-care (01) ==
PROVIDERS: PCP Family Medicine; Visit Provider Internal Medicine Endocrinology, Diabetes & Metabolism
DX: E10.65 Type 1 diabetes mellitus with hyperglycemia (principal)
CPT/HCPCS: 99214

== ENCOUNTER → 2023-06-27 10:42 | Outpatient (BNVA) | payer OTHER, SELFPAY | PROVIDERS: PCP Family Medicine; Visit Provider Internal Medicine Endocrinology, Diabetes & Metabolism | DX: E10.65 Type 1 diabetes mellitus with hyperglycemia (principal) | CPT/HCPCS: 82947; 99212 ==

== ENCOUNTER 2023-07-26 10:18 | Outpatient (AMB) | payer OTHER, SELFPAY ==
--- NOTE | 2023-07-26 10:45 | A.OFFVIS_ITS ---
Intake Intake Visit Reasons: DM1 Ramp And Cargo Supervisor Required: Yes Ramp And Cargo Supervisor Language: Biostatistics Teacher Name: Jackeline [facility] [place] Information Interpreted: non-clinical & clinical Accompanied by: Other Relationship Allergies No Known Allergies Allergy (Verified 06/27/23 10:57) HPI Comprehensive Diabetes Asmnt Most Recent Diabetes Results: Microalb/Creat Ratio 526.0 ug/mg cr 10/13/22 Cholesterol 149 mg/dL 10/13/22 HDL Cholesterol 53 mg/dL 10/13/22 Triglycerides 78 mg/dL 10/13/22 Creatinine 0.91 mg/dL (0.5-1.4) 04/01/23 Blood Urea Nitrogen 18 mg/dL (9-16) H 04/01/23 Sodium 137 mmol/L (135-145) 04/01/23 Potassium 3.9 mmol/L (3.3-5.1) 04/01/23 Chloride 104 mmol/L (96-108) 04/01/23 Carbon Dioxide 26 mmol/L (22-29) 04/01/23 Calcium 9.7 mg/dL (8.4-10.2) 04/01/23 AST 22 U/L (5-31) 12/14/22 ALT 17 U/L (0-31) 12/14/22 Total Protein 6.6 g/dL (6.5-8.0) 12/14/22 Albumin 3.2 g/dL (3.5-5.0) L 12/14/22 [facility] Medical History (Updated 05/26/23 @ 10:48 by Jona Lowe MD) Helicobacter pylori gastritis Chronic cough On beta justine at home Nonischemic cardiomyopathy CHF (congestive heart failure) CAD (coronary artery disease) Thrombocytopenia Anemia Chronic GERD Elevated liver enzymes Seropositive rheumatoid arthritis Obesity (BMI 30-39.9) Rheumatoid arthritis Vitamin D deficiency Dyslipidemia Hypertension 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 Mother No problems noted. Maternal Aunt Diabetes mellitus Social History Household Members: None Housing: Apartment Are you a primary aged or disabled carer to a significant other at home: No Do you presently have visiting nurse or other home services: Yes (telephone) Alcohol intake: never Patient Tobacco Use Status: Never used Tobacco service: No Current occupational status: retired Current occupation: rt handed Assessment & Plan Assessment & Plan (1) Diabetes type 1, uncontrolled: Code(s): E10.65 - Type 1 diabetes mellitus with hyperglycemia Plan: Personal Continuous Glucose Monitor: Patients CGM information reviewed Reviewed patient's sensor data: Hypoglycemia: ? 1% Hyperglycemia:?62% Time in Range:? 37% Average glucose for the last 2 weeks? 214 mg/dL Discussed at today's visit resuming insulin pump therapy with iLet insulin pump. Patient was previously on Omnipod dash, however she had irritation from dash pods. Reviewed with patient the difference between Omnipod dash and iLet. Patient would like to move forward with iLet. Message sent to [facility] with Pt contact info. Patient's last A1c was greater than 10 in 2022 Explained to patient her next A1c will be due in August 2023, order for A1c already placed by PCP Reviewed how to interpret trend arrows Reminded patient that to check finger sticks if symptoms do not match sensor reading. Discussed lag time between finger stick and sensor data.? Patient able to insert sensor independently at home without issue.? Patient Instructions: Patient will contact Diabetes Education nurse for insulin pump training appointment when she receives insulin pump Coding Level of Care Code Est Pt Level 1 (19496) Diagnoses Diabetes type 1, uncontrolled E10.65
== END 2023-07-26 11:02 | disposition home or self-care (01) ==
PROVIDERS: PCP Family Medicine; Visit Provider Registered Nurse Diabetes Educator
DX: E10.65 Type 1 diabetes mellitus with hyperglycemia (principal)

== ENCOUNTER → 2023-07-26 10:18 | Outpatient (BNVA) | payer OTHER, SELFPAY | PROVIDERS: PCP Family Medicine; Visit Provider Registered Nurse Diabetes Educator | DX: E10.65 Type 1 diabetes mellitus with hyperglycemia (principal) | CPT/HCPCS: 99211 ==

== ENCOUNTER 2023-09-20 07:15 | Outpatient (REF) | payer OTHER, SELFPAY ==
[2023-09-20 07:57] LABS: Estimated Average Glucose 180 mg/dL; Hemoglobin A1c % 7.9 % (<6.0)
[2023-09-20 08:24] LABS: Creatinine Urine 211.65 mg/dL
[2023-09-20 08:29] LABS: Alanine Aminotransferase 11 U/L (0-31); Albumin Level 3.1 g/dL (3.5-5.0); Alkaline Phosphatase 113 U/L (39-117); Anion Gap 11 (12-20); Aspartate Amino Transferase 19 U/L (5-31); Bilirubin Direct 0.1 mg/dL (0.0-0.5); Bilirubin Total 0.3 mg/dL (0.0-1.0); Blood Urea Nitrogen 14 mg/dL (9-16); Calcium 9.2 mg/dL (8.4-10.2); Carbon Dioxide 28 mmol/L (22-29); Chloride 106 mmol/L (96-108); Cholesterol 139 mg/dL (<200); Estimated Glomerular Filt Rate > 60; Glucose Fasting 96 mg/dL (60-99); Glucose Random 95 mg/dL (60-115); HDL Cholesterol 51 mg/dL (>40); LDL Cholesterol Calculated 69 mg/dL (<100); Potassium 3.6 mmol/L (3.3-5.1); Sodium 141 mmol/L (135-145); Total Protein 6.9 g/dL (6.5-8.0); Triglycerides 96 mg/dL (<150)
[2023-09-20 08:39] LABS: Hematocrit 36.7 % (37.0-47.0); Hemoglobin 11.2 g/dl (12.0-16.0); Mean Corpuscular HGB Conc 30.5 g/dl (31.0-35.0); Mean Corpuscular Hemoglobin 22.8 pg (27.0-33.0); Mean Corpuscular Volume 74.6 fL (80.0-98.0); Red Blood Count 4.92 X10*6/uL (4.20-5.50); Red Cell Distribution Width 13.6 % (11.0-16.0); White Blood Count 5.1 X10*3/uL (4.8-10.8)
[2023-09-20 08:44] LABS: Free T4 (Free Thyroxine) 1.12 ng/dL (0.71-1.85); Vitamin D 25-OH Total 19.8 ng/mL (>30)
[2023-09-20 08:45] LABS: Thyroid Stimulating Hormone 2.41 uIU/mL (0.32-4.0)
[2023-09-20 09:01] LABS: Platelet Count 113 X10*3/uL (160-400)
[2023-09-21 06:33] LABS: C Peptide 0.47 ng/mL (0.80-3.85)
== END 2023-09-20 07:16 | disposition home or self-care (01) ==
LOC: HO.LAB 07:15
PROVIDERS: PCP Family Medicine; Visit Provider Internal Medicine Endocrinology, Diabetes & Metabolism
DX: E10.65 Type 1 diabetes mellitus with hyperglycemia (principal); Z79.4 Long term (current) use of insulin
CPT/HCPCS: 36415; 80048; 80061; 80076; 82043; 82306; 82570; 82947; 83036; 84439; 84443; 84681; 85027

== ENCOUNTER 2023-10-05 09:26 | Outpatient (AMB) | payer OTHER, SELFPAY ==
--- NOTE | 2023-10-05 09:29 | A.OFFVIS_ITS ---
Vital Signs 10/05/23 09:32 Height 4 ft 11 in Weight 138 lb 3.677 oz BMI 27.9 BP 114/70 Blood Pressure Location Rt brachial Position Sitting Pulse 73 Pulse Source Pulse Oximeter Intake Visit Reasons: dm1 Intake Note: Patient presents today to follow up on D1MT. Patient receives DME through: [facility] Last Diabetic Eye exam: May 2023 Last Podiatry Visit: few months, patient reports provider had left and now needs a new one. Random Glucose: 158 mg/dl HgA1c: 7.9% 09/20/23. Chainstitch Felled Seam Operator Required: Yes Chainstitch Felled Seam Operator Language: Tool Setter Name: Vi, Medical Staff CMI Accompanied by: RENETTA Allergies No Known Allergies Allergy (Verified 10/05/23 09:35) Medication List - Last Reconciled 10/05/23 by Baldev Montes MD acetaminophen ER (Arthritis Pain Relief (acetaminophen) ER) 1 tab PO Q8H PRN apixaban (Eliquis) 5 mg PO BID ascorbic acid (vitamin C) 500 mg PO DAILY atorvastatin 10 mg PO DAILY baclofen 10 mg PO TID PRN benzonatate 100 mg PO TID PRN 30 days blood sugar diagnostic As directed blood sugar diagnostic (FreeStyle Lite Strips) TEST BLOOD SUGAR FOUR TIMES DAILY blood-glucose meter (FreeStyle Lite Meter kit) As directed blood-glucose meter,continuous (Dexcom G6 Senior Sales Consultant) As directed blood-glucose sensor (Dexcom G6 Sensor device) As directed every 10 days blood-glucose transmitter (Dexcom G6 Transmitter device) As directed one every 3 months Breo Ellipta 200-25 mcg/dose (fluticasone furoate-vilanterol) 1 inh inhalation DAILY 30 days NS cetirizine 10 mg PO DAILY cholecalciferol (vitamin D3) 50 mcg PO DAILY digoxin (Digox) 125 mcg PO DAILY ferrous sulfate (FeroSul) 325 mg PO DAILY fluticasone propionate 50 mcg/actuation 2 sprays intranasal DAILY PRN folic acid 1 mg PO DAILY furosemide 40 mg PO DAILY gabapentin 200 mg PO BEDTIME PRN glucose 8 - 16 grams PO NEEDED PRN insulin aspart U-100 (Novolog FlexPen U-100 Insulin aspart) subcutaneously inject 3-6 units 3 times a day; insulin glargine (Lantus Solostar U-100 Insulin) 25 units (0.25 mL) subcut BID lancets (TRUEplus Lancets) As directed methotrexate sodium 12.5 mg (5 x 2.5 mg) PO QWEEK metoprolol tartrate 100 mg PO BID 30 days naloxone 4 mg/actuation (Narcan) 4 mg intranasal NEEDED PRN omeprazole 40 mg PO BID pen needle, diabetic (UltiCare Pen Needle) As directed pen needle, diabetic (BD Ultra-Fine Thania Pen Needle) USE DIRECTED FOUR TIMES DAILY sacubitril-valsartan 49-51 mg (Entresto) 1 tab PO BID sennosides-docusate sodium 8.6-50 mg (Senokot-S) 2 tab-caps (2 x 8.6-50 mg) PO BEDTIME spironolactone 25 mg PO DAILY tramadol 50 mg PO BID PRN triamcinolone acetonide intranasal HPI Comments Details: Patient is a 72-year-old female with DM type 1 diagnosed 2009 who presents for management of diabetes . Past medical history: DM1, HTN, HLD, CHF, CAD, RA Micro and macrovascular complications: CAD Diabetes medications: Lantus 25 units daily Novolog scale as follows: 81-150? 3 units 151-200 4 units >200 6 units Continuous glucose monitoring the past 2 weeks Dexcom download shows: . Average glucose is 210. Standard deviation of 84 Glucoses ranged 39% of the time with 60% hyperglycemia and 1% hypoglycemia. Pattern shows post-breakfast hyperglycemia and post-dinner hyperglycemia Symptoms reported: denies numbness, tingling, cramping in lower extremities Hypoglycemia: when does not eat all that is planned but rare - has hypoglycemia overnight Exercise: limited Entry Level Installation Technician - CDE education: Platform Operations Director: denies Dental exam: has upcoming appointment Ophthalmology evaluation:, last saw optho 05/2023 - reports no retinopathy Other specialists: Rhuematologist Laboratory Tests 10/12/21 10/12/21 10/12/21 10:33 10:38 10:38 Creatinine 0.78 Estimated GFR > 60 Hemoglobin A1c % 7.6 Triglycerides 81 Cholesterol 153 D LDL Cholesterol Direct LDL Cholesterol, Calc 96 HDL Cholesterol 41 25-OH Vitamin D Total TSH Free T4 Microalb/Creat Ratio 147.4 10/12/21 10/12/21 10:38 10:38 Creatinine Estimated GFR Hemoglobin A1c % Triglycerides Cholesterol LDL Cholesterol Direct 88 LDL Cholesterol, Calc HDL Cholesterol 25-OH Vitamin D Total 36.1 TSH 1.19 Free T4 1.18 Microalb/Creat Ratio [facility] Medical History (Updated 05/26/23 @ 10:48 by Jona Lowe MD) Helicobacter pylori gastritis Chronic cough On beta justine at home Nonischemic cardiomyopathy CHF (congestive heart failure) CAD (coronary artery disease) Thrombocytopenia Anemia Chronic GERD Elevated liver enzymes Seropositive rheumatoid arthritis Obesity (BMI 30-39.9) Rheumatoid arthritis Vitamin D deficiency Dyslipidemia Hypertension 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 Mother No problems noted. Maternal Aunt Diabetes mellitus Social History Household Members: None Housing: Apartment Are you a primary home care music therapist to a significant other at home: No Do you presently have visiting nurse or other home services: Yes (telephone) Alcohol intake: never Patient Tobacco Use Status: Never used Tobacco service: No Current occupational status: retired Current occupation: rt handed Physical Exam Vital Signs: Last Vital Signs Pulse 73 10/05/23 09:32 BP 114/70 10/05/23 09:32 BMI result Body Mass Index 27.9 Absence of Cushingoid features. Absence of acromegalic features. Neck exam reveals nl size thyroid about 15 gms. No thyroid nodules palpable. No carotid bruits present. Lungs CTA. Heart S1 S2, Reg R/R. No M/R/ G. Skin exam reveals absence of vitiligo or acanthosis nigricans. Abdominal exam reveals Soft NT/ND with NA BS. No organomegaly present. Neck Other: . Extrem Other: Visual exam of foot performed. No ulcerations or open lesions. No onchomycosis, no callouses.Pulses 2 + distally Sensation intact to monofilament exam. Vibratory sensation sensed is intact with 128 Hz tuning fork Results Reviewed Results Reviewed: Laboratory Last Values Glucose (Clinic) 158 mg/dL (60-115) H 10/05/23 09:42 Assessment & Plan Assessment & Plan (1) Diabetes type 1, uncontrolled: Code(s): E10.65 - Type 1 diabetes mellitus with hyperglycemia Category: Medical Plan: This is a 72-year-old female with history of type 1 diabetes being treated with basal-bolus insulin with poor glycemic control and known microvascular complications namely neuropathy. Plan is to the Lantus to 20 units to tighten the insulin scale pre meals to 81-150? 5 units 151-200 6 u and >250 7 units I will schedule her for follow-up with the chemical educator . I did tell report any further hypoglyc emia for adjustment the regimen. She will also follow-up chemical educator and initiate the iLet pump Orders: Orders 2 Glucose Fasting 09/20/23 E10.65 - Type 1 diabetes mellitus with hyperglycemia C Peptide 09/20/23 E10.65 - Type 1 diabetes mellitus with hyperglycemia Coding Level of Care Code Est Pt Level 4 (00645) Diagnoses Diabetes type 1, uncontrolled E10.65
[2023-10-05 09:32] VITALS: BP 114/70; PULSE 73; BMI 27.9
[2023-10-05 09:47] LABS: Glucose, Whole Blood 158 mg/dL (60-115)
== END 2023-10-05 09:56 | disposition home or self-care (01) ==
PROVIDERS: PCP Family Medicine; Visit Provider Internal Medicine Endocrinology, Diabetes & Metabolism
DX: E10.65 Type 1 diabetes mellitus with hyperglycemia (principal)
CPT/HCPCS: 99214

== ENCOUNTER → 2023-10-05 09:26 | Outpatient (BNVA) | payer OTHER, SELFPAY | PROVIDERS: PCP Family Medicine; Visit Provider Internal Medicine Endocrinology, Diabetes & Metabolism | DX: E10.65 Type 1 diabetes mellitus with hyperglycemia (principal); Z79.4 Long term (current) use of insulin | CPT/HCPCS: 82947; 99212 ==

== ENCOUNTER 2023-10-13 09:35 | Outpatient (REF) | payer OTHER, SELFPAY ==
--- NOTE | ~2023-10-13 | CT_ITS ---
EXAMINATION: CT CHEST WITHOUT CONTRAST CLINICAL INFORMATION: Pulmonary nodules. COMPARISON: Chest CT 02/03/2023. TECHNIQUE: Multidetector volumetric CT imaging of the chest was done. Axial MIP volume rendering provided. Sagittal and coronal reformatted images were obtained. This CT examination was performed using dose optimization techniques as appropriate, variously including the following: *Automated exposure control *Adjustment of mA and/or kV according to patient size (this includes techniques or standardized protocols for targeted exams where dose is matched to indication/reason for exam; i.e. extremities or head) *Use of iterative reconstruction technique DLP: 109 mGy-cm FINDINGS: LUNGS: Previously seen 7 mm nodule in the right lower lobe has resolved. 5 mm subpleural nodule in the right lower lobe series 7 image 274 is stable. New tree-in-bud airspace disease in the medial aspect of the right upper lobe series 7 image 116 and 156. Diffuse airway wall thickening and mosaic attenuation consistent with air trapping. Stable scarring or atelectasis in the left lower lobe. MEDIASTINUM: The heart is enlarged. Cardiac device leads terminate in the right atrium, right ventricle, and coronary sinus. No adenopathy. Diffusely enlarged thyroid gland similar to recent thyroid ultrasound. CORONARY ARTERY CALCIFICATION: None visualized on this study. PLEURA: There is no pleural effusion. No pleural mass or thickening. AXILLA: No adenopathy. UPPER ABDOMEN: Unremarkable. OSSEOUS STRUCTURES: Degenerative changes in the spine. Densely calcified mass in the vertebral canal at the level of T5-T6 posteriorly possibly a meningioma. CT/CT chest wo IV con IMPRESSION: Previously seen 7 mm right lower lobe pulmonary nodule has resolved and was presumably infectious/inflammatory. Stable 5 mm nodule in the right lower lobe. Recommend follow-up in 6 months to complete 12 month surveillance of this likely benign nodule. Diffuse airway wall thickening and mosaic attenuation consistent with chronic airways disease and air trapping. New tree-in-bud airspace disease in the medial aspect of the right upper lobe suggestive of bronchiolitis. Incidental note made of a 9 x 6 x 6 mm densely calcified lesion in the thecal space at the level of T5-T6 which is likely a meningioma. Recommend correlation for thoracic spinal myelopathic symptoms. Fleischner guidelines were followed.
== END 2023-10-13 09:36 | disposition home or self-care (01) ==
LOC: HO.CT 09:35
PROVIDERS: PCP Family Medicine; Visit Provider Internal Medicine Pulmonary Disease
DX: R91.8 Other nonspecific abnormal finding of lung field (principal)
CPT/HCPCS: 71250

== ENCOUNTER 2023-12-14 09:47 | Outpatient (AMB) | payer OTHER, SELFPAY ==
--- NOTE | 2023-12-14 10:10 | A.OFFVIS_ITS ---
Vital Signs 12/14/23 10:11 Height 4 ft 11 in Weight 136 lb 10.986 oz BMI 27.6 BP 138/82 Blood Pressure Location Lt brachial Position Sitting Pulse 71 Pulse Source Doppler Pulse Oximetry (%) 96 Oxygen Delivery Method Room Air Intake Visit Reasons: cough/f/u CT Billboard Erector Required: Yes Billboard Erector Name: Gavi Whitaker Stephanie Allergies No Known Allergies Allergy (Verified 12/14/23 10:15) HPI HPI cough/f/u CT: Details: 73-year-old lady, nonsmoker, with underlying AFib, chronic GERD, rheumatoid arthritis on methotrexate followed for pulmonary component of dyspnea on exertion and cough.? Patient has been using furosemide 20 mg daily with good control of dyspnea on exertion and lower extremity edema. After the last office visit patient has been using Breo with good control of her symptoms until approximately 2 weeks prior when she restarted with significant nonproductive cough, particularly at nighttime. [facility] History (Updated 05/26/23 @ 10:48 by Jona Lowe MD) Helicobacter pylori gastritis Chronic cough On beta justine at home Nonischemic cardiomyopathy CHF (congestive heart failure) CAD (coronary artery disease) Thrombocytopenia Anemia Chronic GERD Elevated liver enzymes Seropositive rheumatoid arthritis Obesity (BMI 30-39.9) Rheumatoid arthritis Vitamin D deficiency Dyslipidemia Hypertension 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 Mother No problems noted. Maternal Aunt Diabetes mellitus Social History Household Members: None Housing: Apartment Are you a primary transitional care nurse to a significant other at home: No Do you presently have visiting nurse or other home services: Yes (telephone) Alcohol intake: never Patient Tobacco Use Status: Never used Tobacco service: No Current occupational status: retired Current occupation: rt handed Review of Systems Const Denies daytime sleepiness, Denies excessive sweating, Denies fatigue, Denies fever(s), Denies lethargy, Denies malaise, Denies night sweats, Denies snoring and Denies weight loss Eyes Denies blurry vision and Denies itchy eyes ENT Denies nasal congestion, Denies post nasal drip, Denies sinus pain, Denies sinus pressure and Denies other ( Thrush) Card Denies chest pain, Denies pedal edema, Denies dyspnea, Denies orthopnea and Denies paroxysmal nocturnal dyspnea Resp Reports cough, Denies hemoptysis, Denies excessive phlegm production, Denies dyspnea, Denies snoring and Denies wheezing GI Denies abdominal pain and Denies heartburn Musc Denies myalgias, Denies arthralgias and Denies joint swelling Skin/Breast Denies rash Neuro Denies memory loss and Denies seizure-like activity Psych Denies abnormal sleep pattern, Denies anxiety and Denies memory loss Endo Denies excessive sweating, Denies fatigue and Denies heat intolerance Angelo/Lymph Denies easy bruising Aller/Immun Denies itchy eyes, Denies seasonal rhinorrhea and Denies wheezing Physical Exam Vital Signs: Last Vital Signs Pulse 71 12/14/23 10:11 BP 138/82 12/14/23 10:11 Pulse Ox 96 12/14/23 10:11 Oxygen Delivery Method Room Air 12/14/23 10:11 BMI result Body Mass Index 27.6 Const General: no acute distress and alert Nutritional Appearance: not obese Orientation/consciousness: Other orientation findings ( oriented) HEENT Head: Yes atraumatic Eyes General: appearance normal, both eyes and all related structures Sclerae: sclerae normal EOM: EOMs intact bilaterally Neck Neck: Yes supple Lymphatic: no lymphadenopathy noted Resp Effort & Inspection: normal respiratory effort and no use of accessory muscles Auscultation: clear to auscultation bilaterally Cardio Rate: regular rate Rhythm: regular rhythm Heart sounds: no gallops, no murmurs and no rubs Skin General skin exam: other ( warm) Extrem General: No clubbing, No cyanosis and No edema Assessment & Plan Assessment & Plan (1) Cough: Code(s): R05.9 - Cough, unspecified Category: Medical Plan: With significant reactive airway disease component. Previously well controlled with Breo until approximately 2 weeks prior to this appointment when she restarted with significant exacerbation. Will treat with a brief course prednisone and codeine for symptomatic relief. (2) Pulmonary nodules: Code(s): R91.8 - Other nonspecific abnormal finding of lung field Category: Medical Plan: Results of CT chest reviewed, stable pulmonary nodules. Will repeat CT chest in 12 months. Medications: New codeine-guaifenesin 10-100 mg/5 mL 10 mL PO Q4-6H PRN 473 mL 0RF cough prednisone 40 mg (2 x 20 mg) PO DAILY 10 tabs 0RF Coding Level of Care Code Est Pt Level 4 (48765) Diagnoses Cough R05.9 Pulmonary nodules R91.8
[2023-12-14 10:11] VITALS: BP 138/82; PULSE 71; O2SAT 96; BMI 27.6
== END 2023-12-14 10:40 | disposition home or self-care (01) ==
PROVIDERS: PCP Family Medicine; Visit Provider Internal Medicine Pulmonary Disease
DX: R05.9 Cough, unspecified (principal); R91.8 Other nonspecific abnormal finding of lung field
CPT/HCPCS: 99214

== ENCOUNTER → 2023-12-14 09:47 | Outpatient (BNVA) | payer OTHER, SELFPAY | PROVIDERS: PCP Family Medicine; Visit Provider Internal Medicine Pulmonary Disease | DX: R05.9 Cough, unspecified (principal); R91.8 Other nonspecific abnormal finding of lung field | CPT/HCPCS: 99212 ==

== ENCOUNTER 2023-12-20 10:39 | Outpatient (AMB) | payer OTHER, SELFPAY ==
--- NOTE | 2023-12-20 10:57 | MHC.OFFVIS ---
Vital Signs 12/20/23 11:02 Height 5 ft 3 in Intake Visit Reasons: abnormal chest Ct, pulmonary nodules Intake Note: Patient referred by pcp Dr. Aldana for abnormal chest CT, pulmonary nodules. Patient c/o: denies SOB. Sometimes feels like there's air when swallowing. Constant dry cough. Chest CT: 10-13-2023. Exhaust Equipment Operator Required: Yes Exhaust Equipment Operator Services: Exhaust Equipment Operator Present Exhaust Equipment Operator Name: Pina CARR Accompanied by: Vi JACKSON Allergies No Known Allergies Allergy (Verified 12/20/23 10:59) Medication List - Last Reconciled 12/20/23 by Ramos Red MD acetaminophen ER (Arthritis Pain Relief (acetaminophen) ER) 1 tab PO Q8H PRN apixaban (Eliquis) 5 mg PO BID ascorbic acid (vitamin C) 500 mg PO DAILY atorvastatin 10 mg PO DAILY baclofen 10 mg PO TID PRN benzonatate 100 mg PO TID PRN 30 days blood sugar diagnostic As directed blood sugar diagnostic (FreeStyle Lite Strips) TEST BLOOD SUGAR FOUR TIMES DAILY blood-glucose meter (FreeStyle Lite Meter kit) As directed blood-glucose meter,continuous ([employer] G6 Hammerer Helper) As directed blood-glucose sensor ([employer] G6 Sensor device) As directed every 10 days blood-glucose transmitter (Dexcom G6 Transmitter device) As directed one every 3 months Breo Ellipta 200-25 mcg/dose (fluticasone furoate-vilanterol) 1 inh inhalation DAILY 30 days NS cetirizine 10 mg PO DAILY cholecalciferol (vitamin D3) 50 mcg PO DAILY codeine-guaifenesin 10-100 mg/5 mL 10 mL PO Q4-6H PRN digoxin (Digox) 125 mcg PO DAILY ferrous sulfate (FeroSul) 325 mg PO DAILY fluticasone propionate 50 mcg/actuation 2 sprays intranasal DAILY PRN folic acid 1 mg PO DAILY furosemide 40 mg PO DAILY gabapentin 200 mg PO BEDTIME PRN glucose 8 - 16 grams PO NEEDED PRN insulin aspart U-100 (Novolog FlexPen U-100 Insulin aspart) subcutaneously inject 3-6 units 3 times a day; insulin glargine (Lantus Solostar U-100 Insulin) 25 units (0.25 mL) subcut BID lancets (TRUEplus Lancets) As directed methotrexate sodium 12.5 mg (5 x 2.5 mg) PO QWEEK metoprolol tartrate 100 mg PO BID 30 days naloxone 4 mg/actuation (Narcan) 4 mg intranasal NEEDED PRN omeprazole 40 mg PO BID pen needle, diabetic (UltiCare Pen Needle) As directed pen needle, diabetic (BD Ultra-Fine Thania Pen Needle) USE DIRECTED FOUR TIMES DAILY prednisone 40 mg (2 x 20 mg) PO DAILY sacubitril-valsartan 49-51 mg (Entresto) 1 tab PO BID sennosides-docusate sodium 8.6-50 mg (Senokot-S) 2 tab-caps (2 x 8.6-50 mg) PO BEDTIME spironolactone 25 mg PO DAILY tramadol 50 mg PO BID PRN HPI Comments Details: Patient presents for follow-up regarding an incidentally found lung lesion for unrelated CT scan of the abdomen. Patient presents with a family member. She has no respiratory issues or complaints. She has never smoked. Chart was reviewed and patient evaluated. Patient is on anticoagulation but she is unclear as to why. She does not history of atrial fibrillation, heart valve replacement, or DVT. [facility] Medical History Helicobacter pylori gastritis Chronic cough On beta justine at home Nonischemic cardiomyopathy CHF (congestive heart failure) CAD (coronary artery disease) Thrombocytopenia Anemia Chronic GERD Elevated liver enzymes Seropositive rheumatoid arthritis Obesity (BMI 30-39.9) Rheumatoid arthritis Vitamin D deficiency Dyslipidemia Hypertension 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 Mother No problems noted. Maternal Aunt Diabetes mellitus Social History Household Members: None Housing: Apartment Are you a primary senior resident care director to a significant other at home: No Do you presently have visiting nurse or other home services: Yes (telephone) Alcohol intake: never Patient Tobacco Use Status: Never used Tobacco service: No Current occupational status: retired Current occupation: rt handed Physical Exam Chest Other: Chest breath sounds bilaterally, HS 1 in 2, no periclavicular or axillary adenopathy bilateral GI Other: Abdomen mildly corpulent, soft, benign Assessment & Plan Assessment & Plan (1) Pulmonary nodules: Code(s): R91.8 - Other nonspecific abnormal finding of lung field Category: Surgical Plan CT scan of October this year demonstrated above-mentioned nodule. Current radiologic recommendation is for six-month follow-up CT scan. Arrangements were made for this. Patient will see me after the study. Orders: Orders CT lung screening 5 Months R91.8 - Other nonspecific abnormal finding of lung field Coding Level of Care Code New Pt Level 4 (30709) Diagnoses Pulmonary nodules R91.8
== END 2023-12-20 11:07 | disposition home or self-care (01) ==
PROVIDERS: PCP Family Medicine; Visit Provider Surgery
DX: R91.8 Other nonspecific abnormal finding of lung field (principal)
CPT/HCPCS: 99203

== ENCOUNTER → 2023-12-20 10:39 | Outpatient (BNVA) | payer OTHER, SELFPAY | PROVIDERS: PCP Family Medicine; Visit Provider Surgery | DX: R91.8 Other nonspecific abnormal finding of lung field (principal) | CPT/HCPCS: 99202 ==

== ENCOUNTER 2024-01-04 10:23 | Outpatient (AMB) | payer OTHER, SELFPAY ==
--- NOTE | 2024-01-04 10:27 | A.OFFVIS_ITS ---
Vital Signs 01/04/24 10:30 Height 5 ft 3 in Weight 134 lb 7.712 oz BMI 23.8 BP 118/76 Blood Pressure Location Rt brachial Position Sitting Pulse 75 Pulse Source Pulse Oximeter Intake Visit Reasons: DM 1/CONFIRMED Intake Note: Patient presents today to re-establish treatment for Type 1 Diabetes Mellitus: Patient receives DME through: [facility]; Last Diabetic Eye exam: May 2023 Last Podiatry Visit: Few months, patient reports provider had left and now has needs a new one DRKeyona Most recent HbA1c: 8.6%, 12/25/2023 Random Glucose- 291mg/dL, Today Hand Turner Required: Yes Hand Turner Language: Tip Fixer Services: Hand Turner Present Hand Turner Name: LILLY Tinsley/ROSANA HENNESSY Information Interpreted: non-clinical & clinical Accompanied by: KICK PRESS SETTER Allergies No Known Allergies Allergy (Verified 01/04/24 10:29) HPI Comments Details: Patient is a 72-year-old female with DM type 1 diagnosed 2009 who presents for management of diabetes . Past medical history: DM1, HTN, HLD, CHF, CAD, RA Micro and macrovascular complications: CAD Diabetes medications: Lantus 25 units daily Novolog scale as follows: 81-150? 3 units 151-200 4 units >200 6 units Dexcom average glucose: [252 ] Glucose Managment indicator 9.3 % TIme in range: 46 % very high (above 250) 27 % high ?(181-250) 27 % in range ?(70-180] Less than 1 % low (69-55) [ <1] % ?very low (below 54) Details [ ] Pattern shows post-breakfast hyperglycemia and post-dinner hyperglycemia Symptoms reported: denies numbness, tingling, cramping in lower extremities Hypoglycemia: when does not eat all that is planned but rare - has hypoglycemia overnight Exercise: limited Bolt Loader - CDE education: Anesthesiologist: denies Dental exam: has upcoming appointment Ophthalmology evaluation:, last saw optho 05/2023, scheduled 12/24 reports no retinopathy has glacoma Other specialists: Rhuematologist [facility] Medical History Helicobacter pylori gastritis Chronic cough On beta justine at home Nonischemic cardiomyopathy CHF (congestive heart failure) CAD (coronary artery disease) Thrombocytopenia Anemia Chronic GERD Elevated liver enzymes Seropositive rheumatoid arthritis Obesity (BMI 30-39.9) Rheumatoid arthritis Vitamin D deficiency Dyslipidemia Hypertension 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 Mother No problems noted. Maternal Aunt Diabetes mellitus Social History Household Members: None Housing: Apartment Are you a primary child care centre director to a significant other at home: No Do you presently have visiting nurse or other home services: Yes (telephone) Alcohol intake: never Patient Tobacco Use Status: Never used Tobacco service: No Current occupational status: retired Current occupation: rt handed Physical Exam Vital Signs: Last Vital Signs Pulse 75 01/04/24 10:30 BP 118/76 01/04/24 10:30 BMI result Body Mass Index 23.8 Const General: cooperative and healthy appearing Nutritional Appearance: overweight Orientation/consciousness: oriented to person Resp Effort & Inspection: normal respiratory effort Cardio Jugular venous distension: no JVD Rate: regular rate Rhythm: regular rhythm Heart sounds: S1 normal heart sound present and S2 normal heart sound present Neuro General: oriented to person Extrem Other: Visual exam of foot performed. No ulcerations or open lesions. No onchomycosis, no callouses. Sensation intact to monofilament exam. Vibratory sensation is normal with 128 Hz tuning fork. Results AMB Hemoglobin A1c AMB Hemoglobin A1c 8.6 % Last Edit by LILLY Tinsley on 01/04/24 10:51 Results Reviewed Results Reviewed: Laboratory Last Values Glucose (Clinic) 291 mg/dL (60-115) H 01/04/24 10:39 Hgb A1c (Clinic) 8.6 % (4.0-6.0) H 01/04/24 10:50 Assessment & Plan Assessment & Plan (1) Diabetes type 1, uncontrolled: Code(s): E10.65 - Type 1 diabetes mellitus with hyperglycemia Category: Medical Plan: Diabetic1 with fair control. She is potentially interested in going on an islet pump low she has advanced age she seems quite sharp and could handle this. Insulin titrated upward we will see her back in a short time to look at her numbers again Orders: Orders AMB Hemoglobin A1c 01/04/24 E11.9 - Type 2 diabetes mellitus without complications Medications: New acetone (urine) test (Ketone Urine Test strips) prn tid for glucose staying over 250 or symptoms of nausea/vomiting 50 ea 1RF blood-glucose meter,continuous (Dexcom G7 Glass Lined Tank Repairer) As directed 1 ea 0RF E10.65 - Type 1 diabetes mellitus with hyperglycemia glucagon 3 mg/actuation (Baqsimi) 3 mg intranasal .twice 30 days PRN 2 ea 1RF prn low glucose/unresponsive call 911 MDD 6 mg E10.65 - Type 1 diabetes mellitus with hyperglycemia blood-glucose sensor (Dexcom G7 Sensor device) As directed 3 ea 11RF E10.65 - Type 1 diabetes mellitus with hyperglycemia Discontinued blood-glucose transmitter (Dexcom G6 Transmitter device) Discontinued Reason: Doctor's Order As directed one every 3 months 1 ea 0RF E10.65 - Type 1 diabetes mellitus with hyperglycemia blood-glucose sensor (Dexcom G6 Sensor device) Discontinued Reason: Doctor's Order As directed every 10 days 3 ea 11RF E10.65 - Type 1 diabetes mellitus with hyperglycemia blood-glucose meter,continuous (Dexcom G6 Glass Lined Tank Repairer) Discontinued Reason: Doctor's Order As directed 1 ea 0RF E10.65 - Type 1 diabetes mellitus with hyperglycemia Coding Level of Care Code Est Pt Level 4 (77051) Diagnoses Diabetes type 1, uncontrolled E10.65 Time Spent (min) 30 Comment Time spent reviewing labs/previous provider notes, face to face, chart documentation
[2024-01-04 10:30] VITALS: BP 118/76; PULSE 75; BMI 23.8
[2024-01-04 10:43] LABS: Glucose, Whole Blood 291 mg/dL (60-115)
== END 2024-01-04 11:09 | disposition home or self-care (01) ==
PROVIDERS: PCP Family Medicine; Visit Provider Nurse Practitioner Adult Health
DX: E10.65 Type 1 diabetes mellitus with hyperglycemia (principal)
CPT/HCPCS: 99214

== ENCOUNTER → 2024-01-04 10:23 | Outpatient (BNVA) | payer OTHER, SELFPAY | PROVIDERS: PCP Family Medicine; Visit Provider Nurse Practitioner Adult Health | DX: E10.65 Type 1 diabetes mellitus with hyperglycemia (principal) | CPT/HCPCS: 82947; 83036; 99212 ==

== ENCOUNTER 2024-01-18 11:35 | Outpatient (AMB) | payer OTHER, SELFPAY ==
--- NOTE | 2024-01-18 11:43 | HO.NEPHOV ---
Vital Signs 01/18/24 11:44 Height 5 ft 3 in Weight 137 lb BMI 24.3 BP 132/70 Blood Pressure Location Lt brachial Position Sitting Pulse 72 Pulse Source Pulse Oximeter Pulse Oximetry (%) 98 Oxygen Delivery Method Room Air Intake Visit Reasons: Proteinuria/ Conf Shrimp Packer Required: Yes Shrimp Packer Services: Shrimp Packer Present Shrimp Packer Name: Ted [id number] Information Interpreted: clinical only Accompanied by: Other Relationship Allergies No Known Allergies Allergy (Verified 01/18/24 11:46) HPI Comments Details: I had the pleasure of seeing Candi in consultation for proteinuria. She is a longstanding diabetic with poor glycemic control. She is followed by endocrinology. She has history of hypertension and nonischemic cardiomyopathy. She does not have any chest pain, shortness of breath, paroxysmal nocturnal dyspnea, orthopnea, urinary symptoms, hematuria, sensorineural deafness, orthostatic symptoms, epistaxis, hemoptysis, photosensitivity, joint swellings, skin rashes. She is known to have rheumatoid arthritis and is on methotrexate. She has been taking omeprazole for a long time. Her blood pressure has been at goal. She denies taking excessive nonsteroidal anti-inflammatories. She is on Entresto. Her renal functions had been normal and stable at baseline. She does not have any new bone or back pain. wrapper hands sprayer was used during this encounter. Family member was also physically present at that time. 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 Mother No problems noted. Maternal Aunt Diabetes mellitus Social History Household Members: None Housing: Apartment Are you a primary day care teacher to a significant other at home: No Do you presently have visiting nurse or other home services: Yes (telephone) Alcohol intake: never Patient Tobacco Use Status: Never used Tobacco service: No Current occupational status: retired Current occupation: rt handed Review of Systems Const All systems reviewed & are unremarkable except as noted in HPI and below Physical Exam Vital Signs: Last Vital Signs Pulse 72 01/18/24 11:44 BP 132/70 01/18/24 11:44 Pulse Ox 98 01/18/24 11:44 Oxygen Delivery Method Room Air 01/18/24 11:44 BMI result Body Mass Index 24.3 Const General: comfortable and no acute distress Orientation/consciousness: patient oriented x3 HEENT Head: Yes normocephalic Mouth: Normal oral and palatal mucosa present Eyes EOM: EOMs intact bilaterally Neck Neck: Yes supple Resp Auscultation: clear to auscultation bilaterally Cardio Jugular venous distension: no JVD Rate: regular rate GI Palpation (GI): Soft to palpation Auscultation: normal bowel sounds General: Yes no CVA tenderness Back/Spine/Pelvis Back: no CVA tenderness Skin General skin exam: no rashes or lesions noted Neuro General: patient oriented x3 and moves all extremities Extrem General: Yes no pedal edema Results Reviewed Nephrology Results: Hgb 10.4 g/dl (12.0-16.0) L 12/15/23 WBC 5.2 X10*3/uL (4.8-10.8) 12/15/23 Plt Count 112 X10*3/uL (160-400) L 12/15/23 Sodium 141 mmol/L (135-145) 12/15/23 Potassium 4.2 mmol/L (3.3-5.1) 12/15/23 Chloride 107 mmol/L (96-108) 12/15/23 Carbon Dioxide 29 mmol/L (22-29) 12/15/23 BUN 16 mg/dL (9-16) 12/15/23 Creatinine 0.91 mg/dL (0.5-1.4) 12/15/23 Calcium 9.4 mg/dL (8.4-10.2) 12/15/23 Urine Creatinine 211.65 mg/dL 09/20/23 Assessment & Plan Assessment & Plan (1) Proteinuria: Code(s): R80.9 - Proteinuria, unspecified Category: Medical Qualifiers: Proteinuria type: persistent Qualified Code(s): R80.1 - Persistent proteinuria, unspecified (2) Hypertension: Code(s): I10 - Essential (primary) hypertension Category: Medical Qualifiers: Hypertension type: primary hypertension Qualified Code(s): I10 - Essential (primary) hypertension Plan Candi has proteinuria for some time. It is most likely due to diabetic nephropathy. Even though differential diagnosis are quite broad, to unlikely to be anything other than diabetic nephropathy. I ordered workup including 24 hour urine for protein as well as renal imaging. There is no indication for any renal biopsy now. Her blood pressure needs to be maintain a goal. Her blood sugar control needs to be better. She is a great candidate for SGLT2 inhibitor. Biopsying her kidney can be challenging and she is on anticoagulation. She should avoid nonsteroidal anti-inflammatories. She is tolerating Entresto very well. I did not make any medication changes today. All these have been explained in detail. Answered all questions. Follow-up appointment given. Orders: Orders Immunofixation, Random Urine Today R80.9 - Proteinuria, unspecified Protein, 24 Hr Urine Group Today R80.9 - Proteinuria, unspecified Immunofixation Pnl, Serum Today R80.9 - Proteinuria, unspecified US renal BI Today R80.9 - Proteinuria, unspecified Coding Level of Care Code New Pt Level 4 (16857) Diagnoses Persistent proteinuria R80.1 Proteinuria type: persistent Primary hypertension I10 Hypertension type: primary hypertension
[2024-01-18 11:44] VITALS: BP 132/70; PULSE 72; O2SAT 98; BMI 24.3
== END 2024-01-18 12:29 | disposition home or self-care (01) ==
PROVIDERS: PCP Family Medicine; Referring Provider Family Medicine; Visit Provider Internal Medicine Nephrology
DX: R80.1 Persistent proteinuria, unspecified (principal); I10 Essential (primary) hypertension
CPT/HCPCS: 99204

== ENCOUNTER → 2024-01-18 11:35 | Outpatient (BNVA) | payer OTHER, SELFPAY | PROVIDERS: PCP Family Medicine; Referring Provider Family Medicine; Visit Provider Internal Medicine Nephrology | DX: R80.1 Persistent proteinuria, unspecified (principal); I10 Essential (primary) hypertension | CPT/HCPCS: 99202 ==

== ENCOUNTER 2024-01-20 11:05 | Outpatient (REF) | payer OTHER, SELFPAY ==
--- NOTE | ~2024-01-20 | XR_ITS ---
EXAMINATION: XR FOOT, RIGHT CLINICAL INFORMATION: Right foot pain following a fall. Great toe injury. COMPARISON: None available. TECHNIQUE: AP, lateral, and oblique views of the right foot. FINDINGS: No acute fracture or dislocation. Mild joint space narrowing with tiny marginal osteophytes at the hallux sesamoids and first metatarsophalangeal joint. No osseous erosion. Small plantar and dorsal calcaneal enthesophytes. Mild forefoot soft tissue swelling. XR/XR foot RT min 3V IMPRESSION: 1. Mild forefoot soft tissue swelling without acute fracture or dislocation. 2. Mild degenerative arthritis at the hallux sesamoids and first metatarsophalangeal joint.
== END 2024-01-20 11:06 | disposition home or self-care (01) ==
LOC: HO.HHCX 11:05
PROVIDERS: Visit Provider Registered Nurse
DX: S99.921A Unspecified injury of right foot, initial encounter (principal)
CPT/HCPCS: 73630

== ENCOUNTER 2024-01-24 07:23 | Outpatient (REF) | payer OTHER, SELFPAY ==
[2024-01-24 09:45] LABS: Protein mg/dL 46 mg/dL
[2024-01-24 17:57] LABS: Creatinine, 24Hr Urine 0.7 G/Day (1.0-2.0); Protein 24 Hr Urine 552 mg/Day (<150); Total Volume 24 Hour Urine 1200 mL
[2024-01-30 12:14] LABS: IgA 419 mg/dL (70-320); IgG 1336 mg/dL (600-1540); IgM 208 mg/dL (50-300)
== END 2024-01-24 07:24 | disposition home or self-care (01) ==
LOC: HO.LAB 07:23
PROVIDERS: PCP Family Medicine; Visit Provider Internal Medicine Nephrology
DX: R80.9 Proteinuria, unspecified (principal)
CPT/HCPCS: 82784; 84156; 86334; 86335

== ENCOUNTER 2024-02-01 10:27 | Outpatient (AMB) | payer OTHER, SELFPAY ==
[2024-02-01 10:30] VITALS: BP 136/78; PULSE 70; BMI 24.6
--- NOTE | 2024-02-01 10:30 | A.OFFVIS_ITS ---
Vital Signs 02/01/24 10:30 Height 5 ft 3 in Weight 138 lb 14.259 oz BMI 24.6 BP 136/78 Blood Pressure Location Rt brachial Position Sitting Pulse 70 Pulse Source Pulse Oximeter Intake Visit Reasons: DM 3wk f/u/CONFIRMED Intake Note: Patient presents today for a follow-up on Type 1 Diabetes Mellitus: Patient receives DME through: [employer]; Last Diabetic Eye exam: May 2023 Last Podiatry Visit: Few months, patient reports provider had left and now has needs a new one DRKeyona Most recent HbA1c: 8.6%, 12/25/2023 Random Glucose- 98mg/dL, Today [employer] Plans Intelligence Officer Chief Required: Yes [employer]oc Plans Intelligence Officer Chief Language: Marketing Content Coordinator Services: [employer] Intelligence Officer Chief Present Aoc Plans Intelligence Officer Chief [place] [facility] [place] [employer] Intelligence Officer Chief Julisa Accompanied by: RENETTA Allergies No Known Allergies Allergy (Verified 02/01/24 10:31) HPI Comments Details: Patient is a 72-year-old female with DM type 1 diagnosed 2009 who presents for management of diabetes . Past medical history: DM1, HTN, HLD, CHF, CAD, RA Micro and macrovascular complications: CAD Diabetes medications: Lantus 20 units daily Novolog scale as follows: 81-150? 3 units 151-200 4 units >200 6 -7 units Dexcom average glucose: [252 ] Glucose Managment indicator 9.3 % TIme in range: 46 % very high (above 250) 27 % high ?(181-250) 27 % in range ?(70-180] Less than 1 % low (69-55) [ <1] % ?very low (below 54) Details [numbers progressively are higher throughout the day especially after 4pm ] Pattern shows post-breakfast hyperglycemia and post-dinner hyperglycemia followed by lower numbers throughout the night. Symptoms reported: denies numbness, tingling, cramping in lower extremities Hypoglycemia: when does not eat all that is planned but rare - has some hypoglycemia overnight though none recent Exercise: limited Procedure Rn - CDE education: Has been seen recently. Conference Interpreter: denies Dental exam: has upcoming appointment Ophthalmology evaluation:, last saw optho 05/2023, scheduled 05/29 reports no retinopathy has glacoma Recently seen in consult by Dr. Sinclair [facility] earlier this month for nephropathy. Other specialists: Rhuematologist Per patient history it sounds as if she may have been seen by an ENT and had a scope put down the throat. A thyroid ultrasound was ordered in his in EHR. Patient: Candi Sanchez : 1950 ADM Date: 04/25/23 Ordering Physician: Gavi Aldana DO Date of Service: 04/25/23 Procedure(s): US thyroid Accession Number(s): [id number] cc: Gavi Aldana DO~ EXAMINATION: US THYROID CLINICAL INFORMATION: Abnormal findings on diagnostic imaging. COMPARISON: CT chest without contrast 02/03/2023. TECHNIQUE: Linear transducer mena-scale and color Doppler examination with attention to the region of the thyroid. Technically difficult study secondary to thyroid located low in neck, bilateral lower poles limited visualization. FINDINGS: SIZE: Measurements of the thyroid lobes and nodules are given in sagittal, anteroposterior and transverse dimensions respectively. Right Thyroid Lobe: 4.7 x 2.7 x 2.4 cm, volume 14.4 mL. Parenchyma: The gland echotexture is heterogeneous. Thyroid vascularity is normal. Left Thyroid Lobe: 4.5 x 2.7 x 2.4 cm, volume 13.9 mL. Parenchyma: The gland echotexture is heterogeneous. Thyroid vascularity is normal. Isthmus: 0.3 cm in maximum AP dimension. Estimated total number of nodules greater than or equal to 1 cm: 4. Supervisor Ovens nodules are described as follows: 1. Location: Right isthmus inferior. Size: 0.8 x 0.4 x 0.9 cm, volume 0.15 mL. Nodule characteristics: Composition: Solid (2). Echogenicity: Hypoechoic (2). Shape: Not taller than wide (0). Margins: Smooth (0). Echogenic Foci: None (0). ACR TI-RADS total points: 4 ACR TI-RADS category: 4 2. Location: Right inferior. Size: 1.1 x 0.9 x 0.4 cm, volume 0.2 mL. Nodule characteristics: Composition: Cystic(0). ACR TI-RADS total points: 0 ACR TI-RADS category: 1 3. Location: Right inferior. Size: 2.2 x 1.9 x 1.6 cm, volume 2.5 mL. Nodule characteristics: Composition: Solid (2). Echogenicity: Hyperechoic (1). Shape: Taller than wide (3). Margins: Ill-defined (0). Echogenic Foci: None (0). ACR TI-RADS total points: 6 ACR TI-RADS category: 4 4. Location: Left mid. Size: 2.2 x 1.1 x 2.0 cm, volume 2.4 mL. Nodule characteristics: Composition: Solid/almost completely solid (2). Echogenicity: Hyperechoic (1). Shape: Not taller than wide (0). Margins: Smooth (0). Echogenic Foci: None (0). ACR TI-RADS total points: 3 ACR TI-RADS category: 3 5. Location: Left inferior. Size: 2.0 x 1.8 x 1.4 cm, volume 2.7 mL. Nodule characteristics: Composition: Solid (2). Echogenicity: Hyperechoic (1). Shape: Not taller than wide (0). Margins: Smooth (0). Echogenic Foci: None (0). ACR TI-RADS total points: 3 ACR TI-RADS category: 3 NODES: No lymphadenopathy is seen in the tissue surrounding the thyroid gland. US/US thyroid IMPRESSION: 1. A 2.2 cm inferior thyroid lobe TR 4 nodule meets ACR biopsy criteria and is amenable to ultrasound-guided biopsy, if clinically indicated and not already performed. 2. There is a diffuse goiter. 3. There is heterogeneous thyroid echotexture, consistent with thyroiditis. ACR TI-RADS RECOMMENDATION REFERENCE: Ultrasound-guided fine-needle aspiration, followup ultrasound, no further follow up. * TR1 (0 point) and TR2 (2 points): No FNA or follow up. * TR3 (3 points): FNA if more than or equal to 2.5 cm in maximum dimension, followup ultrasound in 1, 3 and 5 years if 1.5 to 2.4 cm in maximum dimension. * TR4 (4-6 points): FNA if more than or equal to 1.5 cm in maximum dimension, followup ultrasound in 1, 2, 3 and 5 years if 1 to 1.4 cm in maximum dimension. * TR5 (more than or equal to 7 points): FNA if more than or equal to 1 cm in maximum dimension, followup ultrasound every year for 5 years if 0.5 to 0.9 cm in maximum dimension. * TR3, TR4 or TR5 nodules that are below the size threshold for followup receive no follow up. [facility] Medical History (Updated 02/01/24 @ 11:26 by Silvia Cole NP) Thyroid nodule greater than or equal to 1.5 cm in diameter incidentally noted on imaging study Thyroid nodule Helicobacter pylori gastritis Chronic cough On beta justine at home Nonischemic cardiomyopathy CHF (congestive heart failure) CAD (coronary artery disease) Thrombocytopenia Anemia Chronic GERD Elevated liver enzymes Seropositive rheumatoid arthritis Obesity (BMI 30-39.9) Rheumatoid arthritis Vitamin D deficiency Dyslipidemia Hypertension 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 Mother No problems noted. Maternal Aunt Diabetes mellitus Social History Household Members: None Housing: Apartment Are you a primary director of patient care to a significant other at home: No Do you presently have visiting nurse or other home services: Yes (telephone) Alcohol intake: never Patient Tobacco Use Status: Never used Tobacco service: No Current occupational status: retired Current occupation: rt handed Physical Exam Vital Signs: Last Vital Signs Pulse 70 02/01/24 10:30 BP 136/78 02/01/24 10:30 BMI result Body Mass Index 24.6 Const Other: Absence of Cushingoid features. Absence of acromegalic features. Neck exam reveals nl size thyroid about 15 gms. No thyroid nodules palpable. No carotid bruits present. Lungs CTA. Heart S1 S2, Reg R/R. No M/R G. Skin exam reveals absence of vitiligo or acanthosis nigricans. Extrem Other: Visual exam of foot performed. No ulcerations or open lesions. No onchomycosis, no callouses. No interdigit fissuring or maceration, Sensation intact to monofilament exam. Vibratory sensation is normal with 128 Hz tuning fork. Results Reviewed Results Reviewed: Laboratory Last Values Glucose (Clinic) 98 mg/dL (60-115) 02/01/24 10:[address] [address] Ultrasound Report Signed Patient: Candi Sanchez MR#: [id number] : 1950 Acct:[id number] Age/Sex: 72 / F ADM Date: 04/25/23 Loc: HO.US Attending Dr: Gavi Aldana DO Ordering Physician: Gavi Aldana DO Date of Service: 04/25/23 Procedure(s): US thyroid Accession Number(s): [id number] cc: Gavi Aldana DO~ EXAMINATION: US THYROID CLINICAL INFORMATION: Abnormal findings on diagnostic imaging. COMPARISON: CT chest without contrast 02/03/2023. TECHNIQUE: Linear transducer mena-scale and color Doppler examination with attention to the region of the thyroid. Technically difficult study secondary to thyroid located low in neck, bilateral lower poles limited visualization. FINDINGS: SIZE: Measurements of the thyroid lobes and nodules are given in sagittal, anteroposterior and transverse dimensions respectively. Right Thyroid Lobe: 4.7 x 2.7 x 2.4 cm, volume 14.4 mL. Parenchyma: The gland echotexture is heterogeneous. Thyroid vascularity is normal. Left Thyroid Lobe: 4.5 x 2.7 x 2.4 cm, volume 13.9 mL. Parenchyma: The gland echotexture is heterogeneous. Thyroid vascularity is normal. Isthmus: 0.3 cm in maximum AP dimension. Estimated total number of nodules greater than or equal to 1 cm: 4. Supervisor Ovens nodules are described as follows: 1. Location: Right isthmus inferior. Size: 0.8 x 0.4 x 0.9 cm, volume 0.15 mL. Nodule characteristics: Composition: Solid (2). Echogenicity: Hypoechoic (2). Shape: Not taller than wide (0). Margins: Smooth (0). Echogenic Foci: None (0). ACR TI-RADS total points: 4 ACR TI-RADS category: 4 2. Location: Right inferior. Size: 1.1 x 0.9 x 0.4 cm, volume 0.2 mL. Nodule characteristics: Composition: Cystic(0). ACR TI-RADS total points: 0 ACR TI-RADS category: 1 3. Location: Right inferior. Size: 2.2 x 1.9 x 1.6 cm, volume 2.5 mL. Nodule characteristics: Composition: Solid (2). Echogenicity: Hyperechoic (1). Shape: Taller than wide (3). Margins: Ill-defined (0). Echogenic Foci: None (0). ACR TI-RADS total points: 6 ACR TI-RADS category: 4 4. Location: Left mid. Size: 2.2 x 1.1 x 2.0 cm, volume 2.4 mL. Nodule characteristics: Composition: Solid/almost completely solid (2). Echogenicity: Hyperechoic (1). Shape: Not taller than wide (0). Margins: Smooth (0). Echogenic Foci: None (0). ACR TI-RADS total points: 3 ACR TI-RADS category: 3 5. Location: Left inferior. Size: 2.0 x 1.8 x 1.4 cm, volume 2.7 mL. Nodule characteristics: Composition: Solid (2). Echogenicity: Hyperechoic (1). Shape: Not taller than wide (0). Margins: Smooth (0). Echogenic Foci: None (0). ACR TI-RADS total points: 3 ACR TI-RADS category: 3 NODES: No lymphadenopathy is seen in the tissue surrounding the thyroid gland. US/US thyroid IMPRESSION: 1. A 2.2 cm inferior thyroid lobe TR 4 nodule meets ACR biopsy criteria and is amenable to ultrasound-guided biopsy, if clinically indicated and not already performed. 2. There is a diffuse goiter. 3. There is heterogeneous thyroid echotexture, consistent with thyroiditis. ACR TI-RADS RECOMMENDATION REFERENCE: Ultrasound-guided fine-needle aspiration, followup ultrasound, no further follow up. * TR1 (0 point) and TR2 (2 points): No FNA or follow up. * TR3 (3 points): FNA if more than or equal to 2.5 cm in maximum dimension, followup ultrasound in 1, 3 and 5 years if 1.5 to 2.4 cm in maximum dimension. * TR4 (4-6 points): FNA if more than or equal to 1.5 cm in maximum dimension, followup ultrasound in 1, 2, 3 and 5 years if 1 to 1.4 cm in maximum dimension. * TR5 (more than or equal to 7 points): FNA if more than or equal to 1 cm in maximum dimension, followup ultrasound every year for 5 years if 0.5 to 0.9 cm in maximum dimension. * TR3, TR4 or TR5 nodules that are below the size threshold for followup receive no follow up. Assessment & Plan Assessment & Plan (1) Diabetes type 1, uncontrolled: Code(s): E10.65 - Type 1 diabetes mellitus with hyperglycemia Category: Medical Plan: 73-year-old type 1 diabetic on basal bolus insulin with fair control. Most recent A1c in the office was 8.6% on 01/04/24. Freestyle Waqar average is 259. Given her age a reasonable target we will be 8% for the A1c. The patient is currently on basal/bolus insulin and has a clear pattern of higher numbers later in the day. Lantus is not effective for this patient and is not lasting 24 hours. I have sent a prescription for Tresiba which has a much longer action and steady, flatter affect. This should more evenly lower blood sugar numbers and prevent any nocturnal lows. For now she will increase Lantus to 22 units until she obtains the Tresiba which will also be at 22 units. NovoLog sliding scale Breakfast and lunch 81-150? 3 units 151-200 4 units >200 6 -7 units supper 81-150? 4 units 151-200 5 units >200 7 units (2) Thyroid nodule greater than or equal to 1.5 cm in diameter incidentally noted on imaging study: Code(s): E04.1 - Nontoxic single thyroid nodule Category: Medical Plan: Has multiple nodules. Will refer to Dr. Cui for evaluation. Patient Instructions: Diabetes medication plan given in writing and was reviewed using an hobbing press operator. The patient was counseled to always carry a source of sugar and on the rule of 15's: Take 3 glucose tablets and repeat again in 15 minutes if blood sugar is not in normal range. Continue to repeat every 15 minutes until blood sugar is normal. She may also treat with juice. Coding Level of Care Code Complex EM visit Add On G2211 Diagnoses Diabetes type 1, uncontrolled E10.65 Thyroid nodule greater than or equal to 1.5 cm in diameter incidentally noted on imaging study E04.1 Time Spent (min) 30 Comment Time spent reviewing labs/provider notes, glucose,sensor reports, face to face, chart doc
[2024-02-01 10:38] LABS: Glucose, Whole Blood 98 mg/dL (60-115)
== END 2024-02-01 11:10 | disposition home or self-care (01) ==
PROVIDERS: PCP Family Medicine; Visit Provider Nurse Practitioner Adult Health
DX: E10.65 Type 1 diabetes mellitus with hyperglycemia (principal); E04.1 Nontoxic single thyroid nodule
CPT/HCPCS: 99213; G2211

== ENCOUNTER → 2024-02-01 10:27 | Outpatient (BNVA) | payer OTHER, SELFPAY | PROVIDERS: PCP Family Medicine; Visit Provider Nurse Practitioner Adult Health | DX: E10.65 Type 1 diabetes mellitus with hyperglycemia (principal); E04.1 Nontoxic single thyroid nodule; Z79.4 Long term (current) use of insulin | CPT/HCPCS: 82947; 99212 ==

== ENCOUNTER 2024-02-14 08:34 | Outpatient (AMB) | payer OTHER, SELFPAY ==
[2024-02-14 08:36] VITALS: BP 128/74; PULSE 75; BMI 24.4
--- NOTE | 2024-02-14 08:36 | MHC.OFFVIS ---
Vital Signs 02/14/24 08:36 Height 5 ft 3 in Weight 137 lb 12.623 oz BMI 24.4 BP 128/74 Blood Pressure Location Lt brachial Position Sitting Pulse 75 Pulse Source Pulse Oximeter Intake Visit Reasons: Thyroid Nod-lvm Intake Note: Patient present today for Thyroid nodule follow up visit. Ibm Websphere Commerce Developer Required: Yes Ibm Websphere Commerce Developer Language: [employer] Services: Ibm Websphere Commerce Developer Present Ibm Websphere Commerce Developer Name: Jose Information Interpreted: non-clinical & clinical Accompanied by: PIPING BLOCKER Allergies No Known Allergies Allergy (Verified 02/14/24 08:42) Medication List - Last Reconciled 02/14/24 by Shruthi Cui MD acetaminophen ER (Arthritis Pain Relief (acetaminophen) ER) 1 tab PO Q8H PRN acetone (urine) test (Ketone Urine Test strips) prn tid for glucose staying over 250 or symptoms of nausea/vomiting apixaban (Eliquis) 5 mg PO BID ascorbic acid (vitamin C) 500 mg PO DAILY atorvastatin 10 mg PO DAILY baclofen 10 mg PO TID PRN benzonatate 100 mg PO TID PRN 30 days blood sugar diagnostic As directed blood sugar diagnostic (FreeStyle Lite Strips) TEST BLOOD SUGAR FOUR TIMES DAILY blood-glucose meter (FreeStyle Lite Meter kit) As directed blood-glucose meter,continuous (Dexcom G7 Sod Stripper) As directed blood-glucose sensor (Dexcom G7 Sensor device) As directed Breo Ellipta 200-25 mcg/dose (fluticasone furoate-vilanterol) 1 inh inhalation DAILY 30 days NS cetirizine 10 mg PO DAILY cholecalciferol (vitamin D3) 50 mcg PO DAILY codeine-guaifenesin 10-100 mg/5 mL 10 mL PO Q4-6H PRN digoxin (Digox) 125 mcg PO DAILY famotidine 40 mg PO DAILY ferrous sulfate (FeroSul) 325 mg PO DAILY fluticasone propionate 50 mcg/actuation 2 sprays intranasal DAILY PRN folic acid 1 mg PO DAILY furosemide 20 mg PO DAILY gabapentin 200 mg PO BEDTIME PRN glucagon 3 mg/actuation (Baqsimi) 3 mg intranasal .twice PRN 30 days MDD 6 mg glucose 8 - 16 grams PO NEEDED PRN insulin aspart U-100 (Novolog FlexPen U-100 Insulin aspart) subcutaneously inject 3-6 units 3 times a day; insulin glargine (Lantus Solostar U-100 Insulin) 25 units (0.25 mL) subcut BID lancets (TRUEplus Lancets) As directed methotrexate sodium 12.5 mg (5 x 2.5 mg) PO QWEEK metoprolol tartrate 100 mg PO BID 30 days naloxone 4 mg/actuation (Narcan) 4 mg intranasal NEEDED PRN omeprazole 40 mg PO BID pen needle, diabetic (UltiCare Pen Needle) As directed pen needle, diabetic (BD Ultra-Fine Thania Pen Needle) USE DIRECTED FOUR TIMES DAILY prednisone 40 mg (2 x 20 mg) PO DAILY sacubitril-valsartan 49-51 mg (Entresto) 1 tab PO BID sennosides-docusate sodium 8.6-50 mg (Senokot-S) 2 tab-caps (2 x 8.6-50 mg) PO BEDTIME spironolactone 25 mg PO DAILY tramadol 50 mg PO BID PRN HPI Comments Details: 73 years with history of GERD, rheutmatoid arthritis, Type 1 DM , CHF coming in today for initial evaluation of thyroid nodules. Here with PIPING BLOCKER. She is also seen in our clinic for Type 1 DM : not addressed today last visit 02/01/24 with Silvia Rider APRN. MNG Patient describes she had persistent cough, which lead to pulmonary evaluation , underwent Ct chest 01/26 which lead to incidental discovery of thyroid nodules. Describes chronic cough for the past year, accompanied by difficulty swallowing which has persisted. Difficulty with pills , solids and liquids. But she says it is mildly bothersome with repeatedly clearing her throat, but still able to eat. No voice changes. No difficulty breathing. She has diffculty laying too flat, gets dizzy, uses two pillows. TSH normal September 27. Patient currently denies heat or cold intolerance, diarrhea or constipation, hair loss, palpitation, anxiety, weight changes, mood changes, low energy, changes in appearance of eyes or vision changes, tremors, increased diaphoresis or dry skin. ? Patient denies any history of childhood neck radiation. Denies having ever used lithium, amiodarone or biotin supplements. Patient denies any family history of thyroid cancer or thyroid disease. Brother had lung cancer, was a smoker no other family history of cancer. Review of systems Constitutional: no fevers, chills HEENT: no changes in vision Cardiac: No chest pain, discomfort or palpitations. Pulmonary: No SOB GI:No abdominal pain, no nausea or vomiting, no anorexia, no blood in stool Physical exam General: sitting comfortably in no acute distress HEENT: normocephalic/atraumatic, moist oral mucosa Neck: supple, palpable nodules on both the right and left side. Measuring about 1-2 cm. Cardiac: normal heart sounds Pulm: normal breath sounds B/L, no added breath sounds Abd: not distended, no tenderness Extremities: no edema, no signs of myxedema Neuro: AAO x3, Speech: normal, no facial droop, moving all 4 extremities [facility] Medical History (Updated 02/01/24 @ 11:26 by Silvia Cole NP) Thyroid nodule greater than or equal to 1.5 cm in diameter incidentally noted on imaging study Thyroid nodule Helicobacter pylori gastritis Chronic cough On beta justine at home Nonischemic cardiomyopathy CHF (congestive heart failure) CAD (coronary artery disease) Thrombocytopenia Anemia Chronic GERD Elevated liver enzymes Seropositive rheumatoid arthritis Obesity (BMI 30-39.9) Rheumatoid arthritis Vitamin D deficiency Dyslipidemia Hypertension 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 Mother No problems noted. Maternal Aunt Diabetes mellitus Social History Household Members: None Housing: Apartment Are you a primary child adolescent care to a significant other at home: No Do you presently have visiting nurse or other home services: Yes (telephone) Alcohol intake: never Patient Tobacco Use Status: Never used Tobacco service: No Current occupational status: retired Current occupation: rt handed Physical Exam Vital Signs: Last Vital Signs Pulse 75 02/14/24 08:36 BP 128/74 02/14/24 08:36 BMI result Body Mass Index 24.4 Results Reviewed Results Reviewed: Laboratory Tests 09/20/23 07:27 TSH 2.41 US THYROID 04/28 I reviewed the images myself, and she does have a right-sided dominant nodule measuring 2.2 cm, which is solid hyperechoic, it is hard to tell of the lower border, though this is reported as it taller than wide, which makes it MICHEL high suspicious category, with greater than 50% chance of malignancy. She also has other left-sided nodules, with a 2.2 cm left mid lobe nodule that is solid, hyperechoic TR 3 category and another 2 cm left inferior lobe nodule which is also solid and hyperechoic and TR 3 category, these are both MICHEL low suspicion nodules with 5-10% chance of malignancy. CLINICAL INFORMATION: Abnormal findings on diagnostic imaging. COMPARISON: CT chest without contrast 02/03/2023. TECHNIQUE: Linear transducer mena-scale and color Doppler examination with attention to the region of the thyroid. Technically difficult study secondary to thyroid located low in neck, bilateral lower poles limited visualization. FINDINGS: SIZE: Measurements of the thyroid lobes and nodules are given in sagittal, anteroposterior and transverse dimensions respectively. Right Thyroid Lobe: 4.7 x 2.7 x 2.4 cm, volume 14.4 mL. Parenchyma: The gland echotexture is heterogeneous. Thyroid vascularity is normal. Left Thyroid Lobe: 4.5 x 2.7 x 2.4 cm, volume 13.9 mL. Parenchyma: The gland echotexture is heterogeneous. Thyroid vascularity is normal. Isthmus: 0.3 cm in maximum AP dimension. Estimated total number of nodules greater than or equal to 1 cm: 4. Culinary Arts Teacher nodules are described as follows: 1. Location: Right isthmus inferior. Size: 0.8 x 0.4 x 0.9 cm, volume 0.15 mL. Nodule characteristics: Composition: Solid (2). Echogenicity: Hypoechoic (2). Shape: Not taller than wide (0). Margins: Smooth (0). Echogenic Foci: None (0). ACR TI-RADS total points: 4 ACR TI-RADS category: 4 2. Location: Right inferior. Size: 1.1 x 0.9 x 0.4 cm, volume 0.2 mL. Nodule characteristics: Composition: Cystic(0). ACR TI-RADS total points: 0 ACR TI-RADS category: 1 3. Location: Right inferior. Size: 2.2 x 1.9 x 1.6 cm, volume 2.5 mL. Nodule characteristics: Composition: Solid (2). Echogenicity: Hyperechoic (1). Shape: Taller than wide (3). Margins: Ill-defined (0). Echogenic Foci: None (0). ACR TI-RADS total points: 6 ACR TI-RADS category: 4 4. Location: Left mid. Size: 2.2 x 1.1 x 2.0 cm, volume 2.4 mL. Nodule characteristics: Composition: Solid/almost completely solid (2). Echogenicity: Hyperechoic (1). Shape: Not taller than wide (0). Margins: Smooth (0). Echogenic Foci: None (0). ACR TI-RADS total points: 3 ACR TI-RADS category: 3 5. Location: Left inferior. Size: 2.0 x 1.8 x 1.4 cm, volume 2.7 mL. Nodule characteristics: Composition: Solid (2). Echogenicity: Hyperechoic (1). Shape: Not taller than wide (0). Margins: Smooth (0). Echogenic Foci: None (0). ACR TI-RADS total points: 3 ACR TI-RADS category: 3 NODES: No lymphadenopathy is seen in the tissue surrounding the thyroid gland. US/US thyroid IMPRESSION: 1. A 2.2 cm inferior thyroid lobe TR 4 nodule meets ACR biopsy criteria and is amenable to ultrasound-guided biopsy, if clinically indicated and not already performed. 2. There is a diffuse goiter. 3. There is heterogeneous thyroid echotexture, consistent with thyroiditis. Assessment & Plan Assessment & Plan (1) Thyroid nodule greater than or equal to 1.5 cm in diameter incidentally noted on imaging study: Code(s): E04.1 - Nontoxic single thyroid nodule Category: Medical Plan: Patient with no family history of thyroid cancer, with no personal history of head or neck radiation who is coming in today to establish care for thyroid nodules. She has had a chronic cough for about the last year that has been persistent, she also has a history of GERD, she was evaluated by pulmonology and chest CT led to incidental discovery of multinodular goiter. Subsequent ultrasound thyroid in April 2023 showed multiple bilateral nodules, with a right-sided dominant nodule measuring 2.2 cm, which is solid hyperechoic, , reported as it taller than wide, which makes it MICHEL high suspicious category, with greater than 50% chance of malignancy. She also has other left-sided nodules, with a 2.2 cm left mid lobe nodule that is solid, hyperechoic TR 3 category and another 2 cm left inferior lobe nodule which is also solid and hyperechoic and TR 3 category, these are both MICHEL low suspicion nodules with 5-10% chance of malignancy. TSH was normal from September 2023. She does have some degree of compressive symptoms, and once we have the biopsy results, the near future we can consider discussing the option of total thyroidectomy since she does report bothersome cough and dysphagia. Though the cough could be from her chronic GERD, if the dysphagia is too bothersome, she would benefit from a consultation with Endocrine surgery. I briefly discussed this with her. I explained that it is common to have thyroid nodules. About 95% of the time these nodules are benign. However if the nodule is > 1 cm in size or suspicious on ultrasound then a fine need aspiration biopsy is recommended. We discussed that a FNAB involves 4-5 passes with a small gauge needle and material obtained is sent off for cytology.If the cytopathology is benign then the nodule will be followed annually with repeat ultrasounds. However if it is suspicious or malignant, we will need to discuss further management. Indeterminate cytology can be further investigated with repeat FNA, genetic testing or empiric lobectomy. Malignant cytology is managed with either lobectomy or total thyroidectomy. We discussed briefly that thyroid cancer is, in most patients, an indolent disease that does not affect mortality. We will arrange for FNA at next available opening for the right inferior lobe 2.2 cm TR 4 nodule and patient will follow up with me in clinic thereafter for results and further decision making. Plan: -scheduled for thyroid FNA of right inferior lobe 2.2 cm TR 4 nodule. Plan I spent 30 minutes in reviewing the record, seeing the patient and documenting in the medical record. Orders: Orders US biopsy thyroid Today E04.1 - Nontoxic single thyroid nodule Patient Instructions: We will schedule you for biopsy of one of your thyroid nodules We will also schedule you a follow up in 1-2 weeks after biopsy to discuss results Coding Level of Care Code Est Pt Level 4 (73888) Diagnoses Thyroid nodule greater than or equal to 1.5 cm in diameter incidentally noted on imaging study E04.1 Time Spent (min) 30
== END 2024-02-14 09:28 | disposition home or self-care (01) ==
PROVIDERS: PCP Family Medicine; Visit Provider Student in an Organized Health Care Education/Training Program
DX: E04.1 Nontoxic single thyroid nodule (principal)
CPT/HCPCS: 99214

== ENCOUNTER → 2024-02-14 08:34 | Outpatient (BNVA) | payer OTHER, SELFPAY | PROVIDERS: PCP Family Medicine; Visit Provider Student in an Organized Health Care Education/Training Program | DX: E04.1 Nontoxic single thyroid nodule (principal) | CPT/HCPCS: 99212 ==

== ENCOUNTER 2024-02-22 08:50 | Outpatient (REF) | payer OTHER, SELFPAY ==
--- NOTE | 2024-02-22 09:55 | PM.PROC ---
Brief Operative Note Date of procedure: 02/22/24 Pre-op diagnosis: right lower pole 2.2 cm thyroid nodule Post-op diagnosis: same Procedure: THYROID FINE NEEDLE ASPIRATION PROCEDURE NOTE ? PROCEDURE PERFORMED: Ultrasound-guided FNA of thyroid nodule ? OPERATORS: Dr. Shruthi Cui ? INDICATION: 2.2 cm right-sided thyroid nodule; FNA performed to assess for malignancy ? DESCRIPTION OF PROCEDURE: The indications for FNA (to assess for malignancy) were reviewed with the patient in detail. Potential complications (e.g., bleeding, infection, damage to local structures, absence of clear diagnosis after FNA) were reviewed. Alternatives to FNA including conservative observation or surgery were described. The patient understood and agreed to proceed. This was documented by the signing of the written informed consent form. A time-out was performed to confirm the patient's identity and the site of planned FNA. The nodule of interest was identified using ultrasound (14 MHz linear array probe). The site of FNA was then draped in the usual fashion and carefully cleaned and prepared using alcohol swabs. The skin and subcutaneous tissue at the previously-identified site of needle insertion was iced and sprayed with numbing spray. Under ultrasound guidance, _4_ passes were performed using a 1.5-inch, 22-gauge needle, and sample was obtained via capillary action. The needle tip was clearly visualized to be within the nodule at the time of sampling for 4__ of 4__ passes The patient tolerated the procedure well. There were no immediate complications. A small adhesive bandage was applied, and the patient was advised to take acetaminophen (rather than NSAIDs) for any discomfort and to report any signs of inflammation/infection or marked swelling. IMPRESSION: Technically successful ultrasound-guided fine needle aspiration of 2.2cm right-sided thyroid nodule. PLAN: The patient was advised that I will provide follow-up regarding the cytology result and any subsequent plans. Shruthi Cui MD Condition: stable Disposition: same day
== END 2024-02-22 08:51 | disposition home or self-care (01) ==
LOC: HO.US 08:50
PROVIDERS: PCP Family Medicine; Visit Provider Student in an Organized Health Care Education/Training Program
DX: E04.1 Nontoxic single thyroid nodule (principal)
CPT/HCPCS: 10005; 88173; 88305

== ENCOUNTER → 2024-02-22 08:50 | Outpatient (BNV) | payer OTHER, SELFPAY | PROVIDERS: PCP Family Medicine; Visit Provider Student in an Organized Health Care Education/Training Program | DX: E04.1 Nontoxic single thyroid nodule (principal) | CPT/HCPCS: 10005 ==

== ENCOUNTER 2024-03-01 10:19 | Outpatient (AMB) | payer OTHER, SELFPAY ==
--- NOTE | 2024-03-01 10:20 | A.OFFVIS_ITS ---
Vital Signs 03/01/24 10:23 Height 5 ft 3 in Weight 134 lb 7.712 oz BMI 23.8 Intake Visit Reasons: DM/CONFIRMED Intake Note: Patient presents today for a follow-up on Type 1 Diabetes Mellitus: Patient receives DME through: [facility]; Last Diabetic Eye exam: May 2023 Last Podiatry Visit: Has pending appt coming soon Most recent HbA1c: 8.6%, 12/25/2023 Random Glucose- mg/dL, Today Yellow Pages Space Salesperson Required: Yes Yellow Pages Space Salesperson Language: Client Application Support Specialist Services: Yellow Pages Space Salesperson Present Yellow Pages Space Salesperson Name: LILLY Tinsley/ROSANA Span Information Interpreted: non-clinical & clinical Accompanied by: DIRECTOR OF VOCATIONAL TRAINING Allergies No Known Allergies Allergy (Verified 03/01/24 10:22) HPI Comments Details: Patient is a 73-year-old female with DM type 1 diagnosed 2009 who presents for management of diabetes. She was last seen 02/01/24. She is also followed by Dr. Edmond for thyroid. She was seen by CDE in July and had discussed going to an ilet insulin pump. Previously had been on Omnipod but had skin reaction to pods. Past medical history: DM1, HTN, HLD, CHF, CAD, RA Micro and macrovascular complications: CAD, nephropathy Diabetes medications: Lantus to 22 units NovoLog sliding scale Breakfast and lunch 81-150? 3 units 151-200 4 units >200 6 -7 units supper 81-150? 4 units 151-200 5 units >200 7 units She does not have her Dexcom with her today for us to download but she reports that her numbers are substantially improved since increasing the dose of Lantus. Her previous download showed: post-breakfast hyperglycemia and post-dinner hyperglycemia followed by lower numbers throughout the night. Symptoms reported: denies numbness, tingling, cramping in lower extremities She does have some arthritis pain in her foot. Hypoglycemia: when does not eat all that is planned but rare - has some hypoglycemia overnight though none recent She c/o a dry cough. Has h/o reflux in the past but has not been taking o meprazole regularly. NO fever, sob, post nasal drip Exercise: limited Lens Blank Gauger - CDE education: Has been seen recently. Community Life Director: denies Dental exam: has upcoming appointment Ophthalmology evaluation:, last saw optho 05/2023, scheduled 05/29 reports no retinopathy has glacoma Recently seen in consult by Dr. Sinclair Ne[facility] earlier this month for nephropathy and will be seen again. eGFR 47.9 12/2023, microalbumi 817 09/2023 Other specialists: Rhueumatologist [facility] Medical History Thyroid nodule greater than or equal to 1.5 cm in diameter incidentally noted on imaging study Thyroid nodule Helicobacter pylori gastritis Chronic cough On beta justine at home Nonischemic cardiomyopathy CHF (congestive heart failure) CAD (coronary artery disease) Thrombocytopenia Anemia Chronic GERD Elevated liver enzymes Seropositive rheumatoid arthritis Obesity (BMI 30-39.9) Rheumatoid arthritis Vitamin D deficiency Dyslipidemia Hypertension 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 Mother No problems noted. Maternal Aunt Diabetes mellitus Social History Household Members: None Housing: Apartment Are you a primary patient care provider to a significant other at home: No Do you presently have visiting nurse or other home services: Yes (telephone) Alcohol intake: never Patient Tobacco Use Status: Never used Tobacco service: No Current occupational status: retired Current occupation: rt handed Physical Exam Vital Signs: BMI result Body Mass Index 23.8 Const Other: Absence of Cushingoid features. Absence of acromegalic features. Neck exam reveals nl size thyroid about 15 gms. No thyroid nodules palpable. No carotid bruits present. Lungs CTA.no respiratory effort, no nasal congestion, Heart S1 S2, Reg R/R. No M/R G. Skin exam reveals absence of vitiligo or acanthosis nigricans. No edema Visual exam of foot performed. No ulcerations or open lesions. No inter digit maceration or fissuring. No onychomycosis, no callouses. Sensation intact to monofilament exam. Vibratory sensation is normal with 128 Hz Results Reviewed Results Reviewed: Laboratory Tests 10/12/21 10/13/22 10/13/22 10:38 07:30 07:35 Plt Count Sodium Potassium Creatinine Estim Creat Clear Calc Estimated GFR Hgb A1c (Clinic) Hemoglobin A1c % C-Peptide Calcium AST ALT Triglycerides 78 Cholesterol 149 LDL Cholesterol Direct 88 LDL Cholesterol, Calc 81 HDL Cholesterol 53 25-OH Vitamin D Total TSH Free T4 Urine Creatinine Urine Microalbumin 456.0 Microalb/Creat Ratio 526.0 09/20/23 09/20/23 12/15/23 07:23 07:27 10:45 Plt Count 112 L Sodium 141 Potassium 4.2 Creatinine 0.91 Estim Creat Clear Calc 47.9 Estimated GFR > 60 Hgb A1c (Clinic) Hemoglobin A1c % 7.9 H C-Peptide 0.47 L Calcium 9.4 AST 24 ALT 21 Triglycerides 96 Cholesterol 139 LDL Cholesterol Direct LDL Cholesterol, Calc 69 HDL Cholesterol 51 25-OH Vitamin D Total 19.8 L TSH 2.41 Free T4 1.12 Urine Creatinine 211.65 Urine Microalbumin 817.0 Microalb/Creat Ratio 386.0 H 01/04/24 10:50 Plt Count Sodium Potassium Creatinine Estim Creat Clear Calc Estimated GFR Hgb A1c (Clinic) 8.6 H Hemoglobin A1c % C-Peptide Calcium AST ALT Triglycerides Cholesterol LDL Cholesterol Direct LDL Cholesterol, Calc HDL Cholesterol 25-OH Vitamin D Total TSH Free T4 Urine Creatinine Urine Microalbumin Microalb/Creat Ratio Assessment & Plan Assessment & Plan (1) Diabetes type 1, uncontrolled: Code(s): E10.65 - Type 1 diabetes mellitus with hyperglycemia Category: Medical Plan: Type 1 diabetes with improving numbers but still above target and some variability throughout the day indicating Lantus is not working the 24 hours. Prior h/o some lows at night as well. Will change to Tresiba to get more balanced insulin coverage through out the day. With improving numbers would hold off on pump. INESSA and BNP ordered. Patient will f/u with Dr. Cui to review thyroid biopsy results. She was told that there was no actual cancer, but that there was some abnormal cells and she should keep her f/u appt. Dry cough: patient was advised she could trial taking omeprazole on a more consistent basis as a dry cough can be a GERD equivalent. If no improvment contact pcp. She was encouraged to get the covid booster. Orders: Orders US INESSA complete Today I73.9 - Peripheral vascular disease, unspecified B Type Natriuretic Peptide 1 Week E10.65 - Type 1 diabetes mellitus with hyperglycemia Medications: New insulin degludec (Tresiba FlexTouch U-200 insulin) 22 units (0.11 mL) subcut DAILY 30 days 6 mL 11RF E10.65 - Type 1 diabetes mellitus with hyperglycemia Discontinued insulin glargine (Lantus Solostar U-100 Insulin) Discontinued Reason: Doctor's Order 25 units (0.25 mL) subcut BID 15 mL 5RF Patient Instructions: The patient was counseled to achieve a target A1C of 7% (154 avg). Fasting blood sugars should be 90-130 in the morning and less than 180 two hours after meals. Reviewed the relationship between poor diabetic control and the development of complications Coding Level of Care Code Est Pt Level 4 (89166) Diagnoses Diabetes type 1, uncontrolled E10.65 Time Spent (min) 30 Comment Time spent reviewing labs/provider notes, face to face, chart doc
[2024-03-01 10:23] VITALS: BMI 23.8
[2024-03-01 10:32] LABS: Glucose, Whole Blood 277 mg/dL (60-115)
== END 2024-03-01 10:46 | disposition home or self-care (01) ==
PROVIDERS: PCP Family Medicine; Visit Provider Nurse Practitioner Adult Health
DX: E10.65 Type 1 diabetes mellitus with hyperglycemia (principal)
CPT/HCPCS: 99214

== ENCOUNTER → 2024-03-01 10:19 | Outpatient (BNVA) | payer OTHER, SELFPAY | PROVIDERS: PCP Family Medicine; Visit Provider Nurse Practitioner Adult Health | DX: E10.21 Type 1 diabetes mellitus with diabetic nephropathy (principal); E10.65 Type 1 diabetes mellitus with hyperglycemia; E11.51 Type 2 diabetes mellitus with diabetic peripheral angiopathy without gangrene; E78.5 Hyperlipidemia, unspecified | CPT/HCPCS: 82947; 99212 ==

== ENCOUNTER 2024-03-05 10:23 | Outpatient (AMB) | payer OTHER, SELFPAY ==
--- NOTE | 2024-03-05 10:34 | HO.NEPHOV ---
Vital Signs 03/05/24 10:35 Height 5 ft 3 in Weight 135 lb 2 oz BMI 23.9 BP 112/70 Blood Pressure Location Lt brachial Position Sitting Pulse 94 Pulse Source Pulse Oximeter Pulse Oximetry (%) 98 Oxygen Delivery Method Room Air Intake Visit Reasons: 1 mo fu w/ labs- LVM Locomotive Crane Operator Helper Required: Yes Locomotive Crane Operator Helper Services: Locomotive Crane Operator Helper Present Locomotive Crane Operator Helper Name: Jena [id number] Accompanied by: Other Relationship Allergies No Known Allergies Allergy (Verified 03/05/24 10:37) HPI Comments Details: I had the pleasure of seeing Candi in follow up for proteinuria. She is a longstanding diabetic with poor glycemic control. She is followed by endocrinology. She has history of hypertension and nonischemic cardiomyopathy. She does not have any chest pain, shortness of breath, paroxysmal nocturnal dyspnea, orthopnea, urinary symptoms, hematuria, sensorineural deafness, orthostatic symptoms, epistaxis, hemoptysis, photosensitivity, joint swellings, skin rashes. She is known to have rheumatoid arthritis and is on methotrexate. She has been taking omeprazole for a long time. Her blood pressure has been at goal. She denies taking excessive nonsteroidal anti-inflammatories. She is on Entresto. Her renal functions had been normal and stable at baseline. She does not have any new bone or back pain. book or script editor was used during this encounter. Family member was also physically present at that time. [facility] Medical History Thyroid nodule greater than or equal to 1.5 cm in diameter incidentally noted on imaging study Thyroid nodule Helicobacter pylori gastritis Chronic cough On beta justine at home Nonischemic cardiomyopathy CHF (congestive heart failure) CAD (coronary artery disease) Thrombocytopenia Anemia Chronic GERD Elevated liver enzymes Seropositive rheumatoid arthritis Obesity (BMI 30-39.9) Rheumatoid arthritis Vitamin D deficiency Dyslipidemia Hypertension 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 Mother No problems noted. Maternal Aunt Diabetes mellitus Social History Household Members: None Housing: Apartment Are you a primary day care supervisor to a significant other at home: No Do you presently have visiting nurse or other home services: Yes (telephone) Alcohol intake: never Patient Tobacco Use Status: Never used Tobacco service: No Current occupational status: retired Current occupation: rt handed Review of Systems Const All systems reviewed & are unremarkable except as noted in HPI and below Physical Exam Vital Signs: Last Vital Signs Pulse 94 03/05/24 10:35 BP 112/70 03/05/24 10:35 Pulse Ox 98 03/05/24 10:35 Oxygen Delivery Method Room Air 03/05/24 10:35 BMI result Body Mass Index 23.9 Const General: comfortable and no acute distress Orientation/consciousness: patient oriented x3 HEENT Head: Yes normocephalic Mouth: Normal oral and palatal mucosa present Eyes EOM: EOMs intact bilaterally Neck Neck: Yes supple Resp Auscultation: clear to auscultation bilaterally Cardio Jugular venous distension: no JVD Rate: regular rate GI Palpation (GI): Soft to palpation Auscultation: normal bowel sounds General: Yes no CVA tenderness Back/Spine/Pelvis Back: no CVA tenderness Skin General skin exam: no rashes or lesions noted Neuro General: patient oriented x3 and moves all extremities Extrem General: Yes no pedal edema Results Reviewed Nephrology Results: No Data to Display Assessment & Plan Assessment & Plan (1) Proteinuria: Code(s): R80.9 - Proteinuria, unspecified Category: Medical Qualifiers: Proteinuria type: persistent Qualified Code(s): R80.1 - Persistent proteinuria, unspecified Plan Candi has proteinuria for some time. It is most likely due to diabetic nephropathy. Even though differential diagnosis are quite broad, to unlikely to be anything other than diabetic nephropathy. Her 24 hour urine for protein was reviewed. There is no indication for any renal biopsy now. Her blood pressure needs to be maintain a goal. Her blood sugar control needs to be better. She is a great candidate for SGLT2 inhibitor. Biopsying her kidney can be challenging and she is on anticoagulation. She should avoid nonsteroidal anti-inflammatories. She is tolerating Entresto very well. I did not make any medication changes today. All these have been explained in detail. Answered all questions. Follow-up appointment given. Orders: Orders Phospholipase A2 Receptor Pnl Today R80.1 - Persistent proteinuria, unspecified Anti DNA DS Antibody Today R80.1 - Persistent proteinuria, unspecified Hemoglobin A1c Today R80.1 - Persistent proteinuria, unspecified Immunofixation Pnl, Serum Today R80.1 - Persistent proteinuria, unspecified Protein Creatinine Ratio, Ur Today R80.1 - Persistent proteinuria, unspecified Myeloperoxidase Antibody Today R80.1 - Persistent proteinuria, unspecified Proteinase 3 PR3 Antibodies Today R80.1 - Persistent proteinuria, unspecified Coding Level of Care Code Est Pt Level 4 (73099) Diagnoses Persistent proteinuria R80.1 Proteinuria type: persistent
[2024-03-05 10:35] VITALS: BP 112/70; PULSE 94; O2SAT 98; BMI 23.9
== END 2024-03-05 10:58 | disposition home or self-care (01) ==
PROVIDERS: PCP Family Medicine; Visit Provider Internal Medicine Nephrology
DX: R80.1 Persistent proteinuria, unspecified (principal); E11.21 Type 2 diabetes mellitus with diabetic nephropathy
CPT/HCPCS: 99214

== ENCOUNTER → 2024-03-05 10:23 | Outpatient (BNVA) | payer OTHER, SELFPAY | PROVIDERS: PCP Family Medicine; Visit Provider Internal Medicine Nephrology | DX: R80.1 Persistent proteinuria, unspecified (principal); I10 Essential (primary) hypertension; E11.9 Type 2 diabetes mellitus without complications | CPT/HCPCS: 99212 ==

== ENCOUNTER 2024-03-06 09:14 | Outpatient (REF) | payer OTHER, SELFPAY ==
--- NOTE | ~2024-03-06 | US_ITS ---
EXAMINATION: US RETROPERITONEAL LIMITED (RENAL ONLY) CLINICAL INFORMATION: Proteinuria, unspecified. COMPARISON: Ultrasound abdomen complete with elastography 07/02/2021. Renal ultrasound with bladder 08/01/2015. CT abdomen and pelvis 09/04/2014. TECHNIQUE: Real-time imaging of the kidneys. FINDINGS: RIGHT KIDNEY: 10.1 x 4.3 x 4.2 cm (SAG x AP x TRV). The kidney is normal in size, contour, and echogenicity. Renal cortical thickness is normal. No calculi or focal parenchymal lesions. No hydronephrosis. Prominent column Dequan. LEFT KIDNEY: 10.3 x 3.9 x 3.6 cm (SAG x AP x TRV). The kidney is normal in size, contour, and echogenicity. Renal cortical thickness is normal. No calculi or focal parenchymal lesions. No hydronephrosis. Fluid abutting the lower pole of the left kidney questionable significance. US/US renal BI IMPRESSION: 1. No ultrasound evidence of renal obstruction or hydronephrosis. 2. Small amount of fluid abutting the lower pole of the left kidney questionable significance. CT scan with contrast could be utilized for further assessment if clinically indicated. Electronically signed by: Kyung Smith MD 04/22/2024 07:39 PM EST
== END 2024-03-06 09:15 | disposition home or self-care (01) ==
LOC: HO.US 09:14
PROVIDERS: PCP Family Medicine; Visit Provider Internal Medicine Nephrology
DX: R80.9 Proteinuria, unspecified (principal)
CPT/HCPCS: 76775

== ENCOUNTER 2024-03-07 12:38 | Outpatient (AMB) | payer OTHER, SELFPAY ==
--- NOTE | 2024-03-07 13:00 | A.OFFVIS_ITS ---
Vital Signs 3 03/07/24 13:01 Height 5 ft 3 in Weight 134 lb 7.712 oz BMI 23.8 BP 112/60 Blood Pressure Location Rt brachial Position Sitting Pulse 70 Pulse Source Pulse Oximeter Intake Visit Reasons: Biopsy f/u-conf Intake Note: Patient present today for biopsy follow up visit. Drawbench Operator Required: Yes Drawbench Operator Language: Solution Design And Analysis Manager Services: Drawbench Operator Present Information Interpreted: non-clinical & clinical Accompanied by: ASSEMBLY MACHINE OFFBEARER Allergies No Known Allergies Allergy (Verified 03/07/24 13:04) HPI Comments Details: 73 years with history of GERD, rheutmatoid arthritis, Type 1 DM , CHF coming in today for initial evaluation of thyroid nodules. Here with ASSEMBLY MACHINE OFFBEARER. She is also seen in our clinic for Type 1 DM : not addressed today last visit 03/01/24 with Silvia Rider APRN. [facility] Patient describes she had persistent cough, which lead to pulmonary evaluation , underwent Ct chest 01/26 which lead to incidental discovery of thyroid nodules. TSH normal September 27. US THYROID 04/28 I reviewed the images myself, and she does have a right-sided dominant nodule measuring 2.2 cm, which is solid hyperechoic, it is hard to tell of the lower border, though this is reported as it taller than wide, which makes it MICHEL high suspicious category, with greater than 50% chance of malignancy. She also has other left-sided nodules, with a 2.2 cm left mid lobe nodule that is solid, hyperechoic TR 3 category and another 2 cm left inferior lobe nodule which is also solid and hyperechoic and TR 3 category, these are both MICHEL low suspicion nodules with 5-10% chance of malignancy. FNA 02/21 of the right dominant 2.2 cm nodules revealed AUS with nuclear atypia , Afirma benignb (less than 4% risk of malignany) Describes chronic cough for the past year, accompanied by difficulty swallowing which has persisted. Difficulty with pills , solids and liquids. But she says it is mildly bothersome with repeatedly clearing her throat, but still able to eat. No voice changes. No difficulty breathing. She has diffculty laying too flat, gets dizzy, uses two pillows. Patient currently denies heat or cold intolerance, diarrhea or constipation, hair loss, palpitation, anxiety, weight changes, mood changes, low energy, changes in appearance of eyes or vision changes, tremors, increased diaphoresis or dry skin. ? Patient denies any history of childhood neck radiation. Denies having ever used lithium, amiodarone or biotin supplements. Patient denies any family history of thyroid cancer or thyroid disease. Brother had lung cancer, was a smoker no other family history of cancer. Review of systems Constitutional: no fevers, chills HEENT: no changes in vision Cardiac: No chest pain, discomfort or palpitations. Pulmonary: No SOB GI:No abdominal pain, no nausea or vomiting, no anorexia, no blood in stool Physical exam General: sitting comfortably in no acute distress HEENT: normocephalic/atraumatic, moist oral mucosa Neck: supple, palpable nodules on both the right and left side. Measuring about 1-2 cm. Cardiac: normal heart sounds Pulm: normal breath sounds B/L, no added breath sounds Abd: not distended, no tenderness Extremities: no edema, no signs of myxedema Neuro: AAO x3, Speech: normal, no facial droop, moving all 4 extremities PFSH Medical History Thyroid nodule greater than or equal to 1.5 cm in diameter incidentally noted on imaging study Thyroid nodule Helicobacter pylori gastritis Chronic cough On beta justine at home Nonischemic cardiomyopathy CHF (congestive heart failure) CAD (coronary artery disease) Thrombocytopenia Anemia Chronic GERD Elevated liver enzymes Seropositive rheumatoid arthritis Obesity (BMI 30-39.9) Rheumatoid arthritis Vitamin D deficiency Dyslipidemia Hypertension 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 Mother No problems noted. Maternal Aunt Diabetes mellitus Social History Household Members: None Housing: Apartment Are you a primary acute care assistant to a significant other at home: No Do you presently have visiting nurse or other home services: Yes (telephone) Alcohol intake: never Patient Tobacco Use Status: Never used Tobacco service: No Current occupational status: retired Current occupation: rt handed Physical Exam Vital Signs: Last Vital Signs Pulse 70 03/07/24 13:01 BP 112/60 03/07/24 13:01 BMI result Body Mass Index 23.8 Results Reviewed Results Reviewed: 09/20/23 07:27 TSH 2.41 US THYROID 04/28 I reviewed the images myself, and she does have a right-sided dominant nodule measuring 2.2 cm, which is solid hyperechoic, it is hard to tell of the lower border, though this is reported as it taller than wide, which makes it MICHEL high suspicious category, with greater than 50% chance of malignancy. She also has other left-sided nodules, with a 2.2 cm left mid lobe nodule that is solid, hyperechoic TR 3 category and another 2 cm left inferior lobe nodule which is also solid and hyperechoic and TR 3 category, these are both MICHEL low suspicion nodules with 5-10% chance of malignancy. CLINICAL INFORMATION: Abnormal findings on diagnostic imaging. COMPARISON: CT chest without contrast 02/03/2023. TECHNIQUE: Linear transducer mena-scale and color Doppler examination with attention to the region of the thyroid. Technically difficult study secondary to thyroid located low in neck, bilateral lower poles limited visualization. FINDINGS: SIZE: Measurements of the thyroid lobes and nodules are given in sagittal, anteroposterior and transverse dimensions respectively. Right Thyroid Lobe: 4.7 x 2.7 x 2.4 cm, volume 14.4 mL. Parenchyma: The gland echotexture is heterogeneous. Thyroid vascularity is normal. Left Thyroid Lobe: 4.5 x 2.7 x 2.4 cm, volume 13.9 mL. Parenchyma: The gland echotexture is heterogeneous. Thyroid vascularity is normal. Isthmus: 0.3 cm in maximum AP dimension. Estimated total number of nodules greater than or equal to 1 cm: 4. Risk Modeler nodules are described as follows: 1. Location: Right isthmus inferior. Size: 0.8 x 0.4 x 0.9 cm, volume 0.15 mL. Nodule characteristics: Composition: Solid (2). Echogenicity: Hypoechoic (2). Shape: Not taller than wide (0). Margins: Smooth (0). Echogenic Foci: None (0). ACR TI-RADS total points: 4 ACR TI-RADS category: 4 2. Location: Right inferior. Size: 1.1 x 0.9 x 0.4 cm, volume 0.2 mL. Nodule characteristics: Composition: Cystic(0). ACR TI-RADS total points: 0 ACR TI-RADS category: 1 3. Location: Right inferior. Size: 2.2 x 1.9 x 1.6 cm, volume 2.5 mL. Nodule characteristics: Composition: Solid (2). Echogenicity: Hyperechoic (1). Shape: Taller than wide (3). Margins: Ill-defined (0). Echogenic Foci: None (0). ACR TI-RADS total points: 6 ACR TI-RADS category: 4 4. Location: Left mid. Size: 2.2 x 1.1 x 2.0 cm, volume 2.4 mL. Nodule characteristics: Composition: Solid/almost completely solid (2). Echogenicity: Hyperechoic (1). Shape: Not taller than wide (0). Margins: Smooth (0). Echogenic Foci: None (0). ACR TI-RADS total points: 3 ACR TI-RADS category: 3 5. Location: Left inferior. Size: 2.0 x 1.8 x 1.4 cm, volume 2.7 mL. Nodule characteristics: Composition: Solid (2). Echogenicity: Hyperechoic (1). Shape: Not taller than wide (0). Margins: Smooth (0). Echogenic Foci: None (0). ACR TI-RADS total points: 3 ACR TI-RADS category: 3 NODES: No lymphadenopathy is seen in the tissue surrounding the thyroid gland. US/US thyroid IMPRESSION: 1. A 2.2 cm inferior thyroid lobe TR 4 nodule meets ACR biopsy criteria and is amenable to ultrasound-guided biopsy, if clinically indicated and not already performed. 2. There is a diffuse goiter. 3. There is heterogeneous thyroid echotexture, consistent with thyroiditis. Assessment & Plan Assessment & Plan (1) Thyroid nodule greater than or equal to 1.5 cm in diameter incidentally noted on imaging study: Code(s): E04.1 - Nontoxic single thyroid nodule Category: Medical Plan: Patient with no family history of thyroid cancer, with no personal history of head or neck radiation who is coming in today to discuss results of FNA done 02/21. She has had a chronic cough for about the last year that has been persistent, she also has a history of GERD, she was evaluated by pulmonology and chest CT led to incidental discovery of multinodular goiter. Subsequent ultrasound thyroid in April 2023 showed multiple bilateral nodules, with a right-sided dominant nodule measuring 2.2 cm, which is solid hyperechoic, , reported as it taller than wide, which makes it MICHEL high suspicious category, with greater than 50% chance of malignancy. She also has other left-sided nodules, with a 2.2 cm left mid lobe nodule that is solid, hyperechoic TR 3 category and another 2 cm left inferior lobe nodule which is also solid and hyperechoic and TR 3 category, these are both MICHEL low suspicion nodules with 5-10% chance of malignancy. Underwent FNA 02/22/24 of the right dominant 2.2 cm nodules revealed AUS with nuclear atypia , Afirma benign (less than 4% risk of malignancy). I discuss results of the FNA with the patient, explaining that this is very reassuring given that Afirma is benign. We will plan to repeat the ultrasound of her thyroid given multiple thyroid nodules 6 months which would be 1.5 years from her last ultrasound in April 2023. TSH was normal from September 2023. She will need annual thyroid function testing, we will plan to repeat the next 1 in 6 months before her follow up visit. She does have some degree of compressive symptoms, she does report bothersome cough and dysphagia. the cough could be from her chronic GERD, I explained to her that her thyroid appears normal in size and her nodules are not big enough to be responsible for these symptoms. At this point would not recommend thyroid surgery. Patient verbalized understanding and is agreeable with the plan. Plan: -ordered thyroid ultrasound and TFTs to be done in 6 months -follow up in 7 months to discuss results Plan see above Orders: Orders 2 Thyroid Stimulating Hormone 6 Months E04.1 - Nontoxic single thyroid nodule Free T4 (Free Thyroxine) 6 Months E04.1 - Nontoxic single thyroid nodule US thyroid 6 Months E04.1 - Nontoxic single thyroid nodule Patient Instructions: DO thyroid blood work in 6 months Do thyroid ultrasound in 6 months Follow up with me in clinic in 7 months to discuss these results HACER an?lisis de jah de tiroides en 6 meses Hacer ecograf?a de tiroides en 6 meses. Buffy un seguimiento conmigo en la cl?victoriano dentro de 7 meses para discutir estos resultados. Coding Level of Care Code Est Pt Level 3 (29905) Diagnoses Thyroid nodule greater than or equal to 1.5 cm in diameter incidentally noted on imaging study E04.1
[2024-03-07 13:01] VITALS: BP 112/60; PULSE 70; BMI 23.8
== END 2024-03-07 13:35 | disposition home or self-care (01) ==
PROVIDERS: PCP Family Medicine; Visit Provider Student in an Organized Health Care Education/Training Program
DX: E04.1 Nontoxic single thyroid nodule (principal)
CPT/HCPCS: 99213

== ENCOUNTER → 2024-03-07 12:38 | Outpatient (BNVA) | payer OTHER, SELFPAY | PROVIDERS: PCP Family Medicine; Visit Provider Student in an Organized Health Care Education/Training Program | DX: E04.1 Nontoxic single thyroid nodule (principal) | CPT/HCPCS: 99212 ==

== ENCOUNTER 2024-04-11 08:59 | Outpatient (REF) | payer OTHER, SELFPAY ==
--- NOTE | ~2024-04-11 | US_ITS ---
EXAMINATION: NONINVASIVE ASSESSMENT OF THE ARTERIES OF BOTH LOWER EXTREMITIES CLINICAL INFORMATION: Peripheral vascular disease. COMPARISON: None available. TECHNIQUE: Segmental ankle pulse volume recording, pressure measurement at the ankle and ankle brachial indices were obtained of the lower extremity arterial system bilaterally. This study was performed at rest only. FINDINGS: a) AT REST: 1. The ankle-brachial indices are: Right 1.17 and left 1.10. >0.97-1.25 = normal - no significant arterial disease. 0.75-0.96 = mild peripheral arterial disease. 0.5-0.74 = moderate peripheral arterial disease. <0.50 = severe peripheral arterial disease. 2. Segmental pressure at ankle: Normal. 3. PVR waveform at ankle: Normal. US/US INESSA complete IMPRESSION: Normal ABIs bilaterally. Electronically signed by: Anjel Camacho MD 04/17/2024 11:38 AM DAR
== END 2024-04-11 09:00 | disposition home or self-care (01) ==
LOC: HO.US 08:59
PROVIDERS: PCP Family Medicine; Visit Provider Nurse Practitioner Adult Health
DX: I73.9 Peripheral vascular disease, unspecified (principal)
CPT/HCPCS: 93923

== ENCOUNTER 2024-05-08 07:31 | Outpatient (AMB) | payer OTHER, SELFPAY ==
--- NOTE | 2024-05-08 09:04 | MHC.AMDMED ---
Intake Intake Visit Reasons: Pump training-confirmed Dimension Quarry Supervisor Required: Yes Dimension Quarry Supervisor Language: Production Assembly Operator Name: Criselda [facility] Information Interpreted: non-clinical & clinical Accompanied by: Other Relationship Allergies No Known Allergies Allergy (Verified 03/07/24 13:04) HPI Comprehensive Diabetes Asmnt Most Recent Diabetes Results: Microalb/Creat Ratio 386.0 ug/mg cr (<30) H 09/20/23 Cholesterol 139 mg/dL (<200) 09/20/23 HDL Cholesterol 51 mg/dL (>40) 09/20/23 Triglycerides 96 mg/dL (<150) 09/20/23 Creatinine 0.91 mg/dL (0.5-1.4) 12/15/23 Blood Urea Nitrogen 16 mg/dL (9-16) 12/15/23 Sodium 141 mmol/L (135-145) 12/15/23 Potassium 4.2 mmol/L (3.3-5.1) 12/15/23 Chloride 107 mmol/L (96-108) 12/15/23 Carbon Dioxide 29 mmol/L (22-29) 12/15/23 Calcium 9.4 mg/dL (8.4-10.2) 12/15/23 AST 24 U/L (5-31) 12/15/23 ALT 21 U/L (0-31) 12/15/23 Total Protein 6.5 g/dL (6.5-8.0) 12/15/23 Albumin 3.1 g/dL (3.5-5.0) L 12/15/23 [facility] Medical History Thyroid nodule greater than or equal to 1.5 cm in diameter incidentally noted on imaging study Thyroid nodule Helicobacter pylori gastritis Chronic cough On beta justine at home Nonischemic cardiomyopathy CHF (congestive heart failure) CAD (coronary artery disease) Thrombocytopenia Anemia Chronic GERD Elevated liver enzymes Seropositive rheumatoid arthritis Obesity (BMI 30-39.9) Rheumatoid arthritis Vitamin D deficiency Dyslipidemia Hypertension 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 Mother No problems noted. Maternal Aunt Diabetes mellitus Social History Household Members: None Housing: Apartment Are you a primary hospice patient care secretary to a significant other at home: No Do you presently have visiting nurse or other home services: Yes (telephone) Alcohol intake: never Patient Tobacco Use Status: Never used Tobacco service: No Current occupational status: retired Current occupation: rt handed Assessment & Plan Assessment & Plan (1) Diabetes type 1, uncontrolled: Code(s): E10.65 - Type 1 diabetes mellitus with hyperglycemia Plan: Patient presents for pump training for iLet pump and CGM training today. Patient had 2 steroid injections in shoulder approximately 3 weeks ago, since then glucose levels have been running very high. At this time patient does not wish to start insulin pump therapy The following topics were reviewed today: Reviewed with patient concepts of insulin pump therapy How and when to bolus for meals with carbohydrate How pump uses glucose information from CGM it to infuse basal insulin Patient is currently taking Tresiba 22 units NovoLog sliding scale Patient's average glucose for the past 14 days 347 mg/dL Patient above target 98% Patient below target 0% At target 2% Recommended to patient to increase Tresiba to 26 units daily Patient will follow up with CDE as instructed Portions of this note were created using voice recognition software, please excuse any words or phrases that may have been misinterpreted. Patient Instructions: Follow-up with special educator in 2 weeks for glucose review Coding Level of Care Code Est Pt Level 1 (78346) Diagnoses Diabetes type 1, uncontrolled E10.65
== END 2024-05-08 09:05 | disposition home or self-care (01) ==
PROVIDERS: PCP Family Medicine; Visit Provider Registered Nurse Diabetes Educator
DX: E10.65 Type 1 diabetes mellitus with hyperglycemia (principal)

== ENCOUNTER → 2024-05-08 07:31 | Outpatient (BNVA) | payer OTHER, SELFPAY | PROVIDERS: PCP Family Medicine; Visit Provider Registered Nurse Diabetes Educator | DX: E10.65 Type 1 diabetes mellitus with hyperglycemia (principal); Z46.81 Encounter for fitting and adjustment of insulin pump; Z79.4 Long term (current) use of insulin | CPT/HCPCS: 99211 ==

== ENCOUNTER 2024-05-09 08:39 | Outpatient (REF) | payer OTHER, SELFPAY ==
--- NOTE | ~2024-05-09 | XR_ITS ---
EXAMINATION: XR CERVICAL SPINE CLINICAL INFORMATION: Rheumatoid arthritis with rheumatoid factor, unspecified M05.9. COMPARISON: None available. TECHNIQUE: 6 views of the cervical spine, inclusive of flexion and extension views, were obtained. FINDINGS: Degenerative disc space narrowing most pronounced from C5 to T1. No pathologic motion with flexion or extension. The visualized lung apices are clear. The prevertebral soft tissues are normal. XR/XR cervical spine w flex/ext IMPRESSION: Degenerative disc space narrowing most pronounced from C5 to T1. Electronically signed by: Mike Atkins MD 05/29/2024 01:09 PM DAR
[2024-05-09 10:50] LABS: Basophils Percent Auto 0.4 % (0-2); Eosinophils Absolute Auto 0.1 X10*3/uL (0.0-0.4); Eosinophils Percent Auto 1.9 % (0-4); Hematocrit 37.2 % (37.0-47.0); Hemoglobin 11.6 g/dl (12.0-16.0); Imm Gran Abs Auto 0.03 X10*3/uL (0.00-0.03); Imm Gran Pct Auto 0.4 % (0.0-0.4); Lymphocytes Absolute Auto 1.3 X10*3/uL (1.2-4.9); Lymphocytes Percent Auto 18.6 % (20-40); MANUAL DIFF FLAG SCAN; Mean Corpuscular HGB Conc 31.2 g/dl (31.0-35.0); Mean Corpuscular Hemoglobin 22.7 pg (27.0-33.0); Mean Corpuscular Volume 72.8 fL (80.0-98.0); Monocytes Absolute Auto 0.5 X10*3/uL (0.1-1.2); Monocytes Percent Auto 7.1 % (2-11); Neutrophils Absolute Auto 4.8 x10*3/uL (2.0-8.3); Neutrophils Percent Auto 71.6 % (45-73); PLT CLUMP 1; Red Blood Count 5.11 X10*6/uL (4.20-5.50); Red Cell Distribution Width 15.4 % (11.0-16.0); SCAN SMEAR FLAG 1
[2024-05-09 11:22] LABS: Alanine Aminotransferase 34 U/L (0-31); Albumin Level 3.1 g/dL (3.5-5.0); Alkaline Phosphatase 122 U/L (39-117); Anion Gap 8 (12-20); Aspartate Amino Transferase 46 U/L (5-31); Bilirubin Total 0.5 mg/dL (0.0-1.0); Blood Urea Nitrogen 18 mg/dL (9-16); C Reactive Protein < 0.10 mg/dL (< or = 0.50); Calcium 9.4 mg/dL (8.4-10.2); Carbon Dioxide 31 mmol/L (22-29); Chloride 105 mmol/L (96-108); Estimated Glomerular Filt Rate > 60; Glucose Random 193 mg/dL (60-115); Potassium 4.3 mmol/L (3.3-5.1); Sodium 140 mmol/L (135-145); Total Protein 6.4 g/dL (6.5-8.0)
[2024-05-09 11:31] LABS: Erythrocyte Sedimentation Rate 10 MM/HR (0-20)
[2024-05-09 11:35] LABS: HBS Num1 > 1000.00 mIU/mL (0-7.99); HBc Num1 0.09 S/CO (0.00-0.79); HBsAGNum1 0.32 S/CO (0.00-0.99); Hepatitis A Antibody IgM 0.17 Index (0-0.79); Hepatitis B Core Antibody Nonreactive (Nonreactive); Hepatitis B Surface Antigen Negative (Negative); ~HepC Num1 0.14 S/CO (0.00-0.79); ~Hepatitis A Antibody IgM Nonreactive (Nonreactive); ~Hepatitis B Surface Antibody REACTIVE (Nonreactive); ~Hepatitis C Antibody Nonreactive (Nonreactive)
[2024-05-09 11:38] LABS: White Blood Count 6.8 X10*3/uL (4.8-10.8)
[2024-05-09 11:39] LABS: Platelet Count 100 X10*3/uL (160-400); SLIDE REVIEW VERIFIED
== END 2024-05-09 08:40 | disposition home or self-care (01) ==
LOC: HO.XRAY 08:39
PROVIDERS: PCP Family Medicine; Visit Provider Student in an Organized Health Care Education/Training Program
DX: M05.9 Rheumatoid arthritis with rheumatoid factor, unspecified (principal); M15.9 Polyosteoarthritis, unspecified; Z79.899 Other long term (current) drug therapy
CPT/HCPCS: 36415; 72052; 73030; 73110; 73130; 80053; 85025; 85652; 86140; 86704; 86706; 86709; 86803; 87340; 99202

== ENCOUNTER 2024-05-09 08:39 | Outpatient (AMB) | payer OTHER, SELFPAY ==
--- NOTE | 2024-05-09 08:46 | MHC.OFFVIS ---
Vital Signs 05/09/24 08:47 Height 5 ft 3 in Weight 133 lb 2.547 oz BMI 23.6 BP 128/68 Blood Pressure Location Rt brachial Position Sitting Pulse 75 Pulse Source Pulse Oximeter Pulse Oximetry (%) 93 Oxygen Delivery Method Room Air Intake Visit Reasons: RA/CM Intake Note: Patient present today for RA office visit. Community Recreation Coordinator Required: Yes Community Recreation Coordinator Language: Ceramic Coater Machine Services: Community Recreation Coordinator Present Information Interpreted: non-clinical & clinical Accompanied by: SHEET ROCK TAPER HELPER Allergies No Known Allergies Allergy (Verified 05/09/24 08:51) Medication List - Last Reconciled 05/09/24 by Megan Trinidad MD acetaminophen ER (Arthritis Pain Relief (acetaminophen) ER) 1 tab PO Q8H PRN acetone (urine) test (Ketone Urine Test strips) prn tid for glucose staying over 250 or symptoms of nausea/vomiting apixaban (Eliquis) 5 mg PO BID ascorbic acid (vitamin C) 500 mg PO DAILY atorvastatin 10 mg PO DAILY baclofen 10 mg PO TID PRN benzonatate 100 mg PO TID PRN 30 days blood sugar diagnostic As directed blood sugar diagnostic (FreeStyle Lite Strips) TEST BLOOD SUGAR FOUR TIMES DAILY blood-glucose meter (FreeStyle Lite Meter kit) As directed blood-glucose meter,continuous (Dexcom G7 Sales Representative Printing Supplies) As directed blood-glucose sensor (Dexcom G7 Sensor device) As directed Breo Ellipta 200-25 mcg/dose (fluticasone furoate-vilanterol) 1 inh inhalation DAILY 30 days NS cholecalciferol (vitamin D3) 50 mcg PO DAILY codeine-guaifenesin 10-100 mg/5 mL 10 mL PO Q4-6H PRN digoxin (Digox) 125 mcg PO DAILY famotidine 40 mg PO DAILY ferrous sulfate (FeroSul) 325 mg PO DAILY fluticasone propionate 50 mcg/actuation 2 sprays intranasal DAILY PRN folic acid 1 mg PO DAILY furosemide 20 mg PO DAILY glucagon 3 mg/actuation (Baqsimi) 3 mg intranasal .twice PRN 30 days MDD 6 mg glucose 8 - 16 grams PO NEEDED PRN insulin aspart U-100 (Novolog FlexPen U-100 Insulin aspart) subcutaneously inject 3-6 units 3 times a day; insulin degludec (Tresiba FlexTouch U-200 insulin) 22 units (0.11 mL) subcut DAILY 30 days lancets (TRUEplus Lancets) As directed metoprolol tartrate 100 mg PO BID 30 days naloxone 4 mg/actuation (Narcan) 4 mg intranasal NEEDED PRN omeprazole 40 mg PO BID pen needle, diabetic (UltiCare Pen Needle) As directed pen needle, diabetic (BD Ultra-Fine Thania Pen Needle) USE DIRECTED FOUR TIMES DAILY sacubitril-valsartan 49-51 mg (Entresto) 1 tab PO BID sennosides-docusate sodium 8.6-50 mg (Senokot-S) 2 tab-caps (2 x 8.6-50 mg) PO BEDTIME spironolactone 25 mg PO DAILY HPI Comments Details: Patient is a 73-year-old female with hypertension, diabetes, coronary artery disease, heart failure with reduced ejection fraction, atrial fibrillation on digoxin and Eliquis who presents to [facility] care for management of rheumatoid arthritis Patient diagnosed with seropositive rheumatoid arthritis several years ago. Was maintained on methotrexate however was lost to follow up since 2020. Previously taking methotrexate but that has since stopped. Sometimes intermittently has flares of her disease with swelling to her hands and her wrists but this would respond to [id number] Tylenol Arthritis. Has prolonged morning stiffness up to an hour. Her main complaints are her bilateral shoulders for which she recently got a steroid injection 1 month ago for. She also complains of knee pain worse at the end of the day impairs her ability to ascend stairs. Denies any shortness of breath, unexplained weight loss. 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 [facility] Medical History (Updated 05/09/24 @ 09:59 by Megan Trinidad MD) Polyarticular osteoarthritis Thyroid nodule greater than or equal to 1.5 cm in diameter incidentally noted on imaging study Thyroid nodule Helicobacter pylori gastritis Chronic cough On beta justine at home Nonischemic cardiomyopathy CHF (congestive heart failure) CAD (coronary artery disease) Thrombocytopenia Anemia Chronic GERD Elevated liver enzymes Seropositive rheumatoid arthritis Obesity (BMI 30-39.9) Vitamin D deficiency Dyslipidemia Hypertension 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 Mother No problems noted. Maternal Aunt Diabetes mellitus Social History Household Members: None Housing: Apartment Are you a primary personal care assistant to a significant other at home: No Do you presently have visiting nurse or other home services: Yes (telephone) Alcohol intake: never Patient Tobacco Use Status: Never used Tobacco service: No Current occupational status: retired Current occupation: rt handed Review of Systems Const Details: Review of Systems Constitutional: Denies fever, chills, weight loss ENT: Denies vision changes, eye pain or eye redness, dental caries, dry mouth GI: Denies nausea, vomiting, diarrhea, abdominal pain, change in BM Pulm: Denies SOB, THOMPSON, hemoptysis, wheezing Cards: Denies chest pain, palpitations Skin: Denies Raynaud's, rash, nail changes, photosensitivity, NEWS GATHERING TECHNICIAN: Denies headaches, weakness, paresthesias, recurrent falls MSK: as per HPI All other systems reviewed and are unremarkable except noted above Physical Exam Vital Signs: Last Vital Signs Pulse 75 05/09/24 08:47 BP 128/68 05/09/24 08:47 Pulse Ox 93 05/09/24 08:47 Oxygen Delivery Method Room Air 05/09/24 08:47 BMI result Body Mass Index 23.6 Physical Examination CONSTITUITIONAL Patient alert and cooperative. Well appearing and in no apparent painful distress HEENT Conjunctiva and sclera clear. ?Pupils equal round and reactive to light. ?No lymphadenopathy. ? CHEST/RESPIRATORY SYSTEM Normal respiratory effort and able to speak in complete sentences. ?Clear to auscultation bilaterally. ?No crackles, rales, rhonchi, wheezes heard. CARDIAC SYSTEM Regular rate and rhythm. ?S1 and S2 heard no murmurs. ?Radial pulses intact bilaterally MSK Hands: ?Good cement contractor strength bilaterally - 5/5. ?[place]-neck deformity noted to the left 5th digit. Mild tenderness to palpation of the 2nd and 3rd MCPs bilaterally. Wrists: ?Full range of motion at the wrists. Mild tenderness to palpation of bilateral wrists with some fullness noted. Elbows: Full range of motion without pain. No tenderness, weakness, swelling, increased warmth or erythema. Shoulders: Full range of motion without pain. No tenderness, weakness, swelling, increased warmth or erythema. Knees: ?Full range of motion. ?No tenderness, swelling, increased warmth or erythema.? Crepitations noted bilaterally Ankles: Full range of motion. ?No tenderness, swelling, increased warmth or erythema.? Feet: ?Negative squeeze test. ?No tenderness to palpation or swelling of the MTPs. SKIN Skin intact without rashes. Results Reviewed Results Reviewed: Laboratory Tests 04/12/19 06/18/19 12/15/23 11:47 11:25 10:45 WBC 5.2 RBC 4.62 Hgb 10.4 L Hct 33.9 L Plt Count 112 L Sodium 141 Potassium 4.2 Chloride 107 Carbon Dioxide 29 BUN 16 Creatinine 0.91 AST 24 ALT 21 Rheumatoid Factor 55.0 H Cycl Citrul Peptide IgG >250 H DEXA 11/11/21 FINDINGS: AP SPINE L1-L4: Current: BMD 1.072 g/cm2, Z-score 0.9, T-score -0.9, normal, 0.3% decrease from baseline (<5% change is not significant). Baseline: BMD 1.075 g/cm2. LEFT FEMUR, NECK: Current: BMD 0.914 g/cm2, Z-score 1.0, T-score -0.9, normal. Baseline: BMD 0.890 g/cm2. LEFT FEMUR, TOTAL: Current: BMD 0.981 g/cm2, Z-score 1.5, T-score -0.2, normal, 0.5% decrease from baseline (<5% change is not significant). Baseline: BMD 0.986 g/cm2. Assessment & Plan Assessment & Plan (1) Seropositive rheumatoid arthritis: Code(s): M05.9 - Rheumatoid arthritis with rheumatoid factor, unspecified Category: Medical Plan: #Seropositive RA Patient with seropositive RA. Has not been on methotrexate for years. Does report intermittent swelling involving the wrists and hands. With prolonged morning stiffness up to an hour. We will restart small dose of methotrexate 4 tablets weekly. We will need to monitor in the setting of her thrombocytopenia. Can possibly change to leflunomide if we notice there is worsening of her thrombocytopenia while on methotrexate. There is no leukopenia specifically neutropenia to suggest Felty syndrome at this time RTC 4 months (2) Polyarticular osteoarthritis: Code(s): M15.9 - Polyosteoarthritis, unspecified Category: Medical Plan: #Polyarticular OA Polyarticular OA involving shoulders and knees. Given that patient is on Eliquis would not recommend Celebrex. Has tried topical diclofenac in the past with out much relief. Has also tried physical therapy without much help. At this time limited in therapeutic that we can offer. Tried tramadol in the past which helped but she had stomach issues with it. She can continue receiving injections p.r.n.. Last injection for shoulders was 04/2024 (3) long-term methotrexate user: Code(s): Z79.899 - Other drilling rig operator (current) drug therapy Category: Medical Plan: #Long-term Current Use of Methotrexate Discussed with patient the benefits and risks of methotrexate for managing their rheumatic condition Benefits include reduced pain, reduced mortality, maintenance of remission and reduction of flares Risks include oral ulcers, photosensitivity, hepatotoxicity, hematologic toxicity, pneumonitis, flu-like symptoms (especially day after administration), nodulosis, lymphomas ? Limit alcohol and avoid Bactrim ? Monitoring: ?CBC, BMP, LFTs every 3-4 months and hepatitis serologies as needed Plan I spent 45 minutes reviewing the record and labs, seeing the patient, discussing the treatment plan and documenting in the medical record ? Orders: Orders Complete Blood Count Auto Diff Today M05.9 - Rheumatoid arthritis with rheumatoid factor, unspecified C Reactive Protein Today M05.9 - Rheumatoid arthritis with rheumatoid factor, unspecified Erythrocyte Sedimentation Rate Today M05.9 - Rheumatoid arthritis with rheumatoid factor, unspecified XR hand wrist LT Today M05.9 - Rheumatoid arthritis with rheumatoid factor, unspecified XR cervical spine w flex/ext Today M05.9 - Rheumatoid arthritis with rheumatoid factor, unspecified XR shoulder RT min 2V Today M05.9 - Rheumatoid arthritis with rheumatoid factor, unspecified Comprehensive Met. Panel Today M05.9 - Rheumatoid arthritis with rheumatoid factor, unspecified Hepatitis A,B,C Profile Today M05.9 - Rheumatoid arthritis with rheumatoid factor, unspecified XR hand wrist RT Today M05.9 - Rheumatoid arthritis with rheumatoid factor, unspecified XR shoulder LT min 2V Today M05.9 - Rheumatoid arthritis with rheumatoid factor, unspecified Medications: New methotrexate sodium 10 mg (4 x 2.5 mg) PO QWEEK 52 tabs 1RF 90 days M05.9 - Rheumatoid arthritis with rheumatoid factor, unspecified Coding Level of Care Code New Pt Level 4 (21603) Complex EM visit Add On G2211 Diagnoses Seropositive rheumatoid arthritis M05.9 Polyarticular osteoarthritis M15.9 morale officer methotrexate user Z79.899
[2024-05-09 08:47] VITALS: BP 128/68; PULSE 75; O2SAT 93; BMI 23.6
== END 2024-05-09 09:25 | disposition home or self-care (01) ==
PROVIDERS: PCP Family Medicine; Visit Provider Student in an Organized Health Care Education/Training Program
DX: M05.79 Rheumatoid arthritis with rheumatoid factor of multiple sites without organ or systems involvement (principal); M15.9 Polyosteoarthritis, unspecified; Z79.899 Other long term (current) drug therapy
CPT/HCPCS: 99205; G2211

== ENCOUNTER 2024-06-28 08:25 | Outpatient (AMB) | payer OTHER, SELFPAY ==
--- NOTE | 2024-06-28 08:44 | HO.SPINEOV ---
Vital Signs 06/28/24 08:56 Height 5 ft 3 in Weight 130 lb BMI 23.0 Intake Visit Reasons: densely calcified lesion Intake Note: Ms. Daniel Mueller is here today c/o Low back pain. Medical Office Technologist Required: Yes Medical Office Technologist Name: Tablet Allergies No Known Allergies Allergy (Verified 07/17/24 09:30) Physical Exam Vital Signs: BMI result Body Mass Index 23.0 Assessment & Plan Assessment & Plan (1) Lumbago: Code(s): M54.50 - Low back pain, unspecified Category: Medical Plan Dear Dr. Zimmer, Thank you for referring Candi to our office today. She is a pleasant, complicated, 72-year-old female who comes in today with a chief complaint of axial low back pain. She reports that this has been ongoing for about a year and intermittently will flare-up causing her pain. She is able to mitigate this pain fairly well with Tylenol. She was referred to our office for evaluation of a calcified lesion at T5-6 found incidentally on a chest CT back in October. The patient reports she has had low back pain for about a year, but denies any other concerns or complaints. Overall she states she is able to ambulate well and still completes her grocery shopping and goes to the store without issue. She denies any significant numbness in her upper or lower extremities, but does state she has some tingling on her right medial calf. She states that she has chronic right knee pain has significant osteoarthritis in her right knee. She denies any progressive weakness, no issues with bowel/bladder. She denies any falls, or troubles with dexterity outside of her baseline. She has not been to physical therapy, has not attempted animal care service worker, has not done acupuncture, and has not been evaluated by someone from physiatry or pain management for interventions such as injections. PMH: Helicobacter pylori gastritis, Chronic cough, Nonischemic cardiomyopathy, CHF, CAD, Thrombocytopenia, Anemia, Chronic GERD, Elevated liver enzymes, Obesity, Rheumatoid arthritis, Vitamin D deficiency, Dyslipidemia, Hypertension, Diabetic polyneuropathy, Diabetes type 1, uncontrolled with last A1C in 05/19.2. Implantable defibrillator not compatible with MRI. Social hx: The patient does not smoke, reports no substance use. Medications: See Postcron list. Allergies: NKDA. Physical exam: The patient has about 4/5 strength with bilateral upper extremity testing. Her lower extremity strength is 5/5. The patient has no significant sensational deficits aside from the tingling noted in the medial right calf. Her reflexes are 1+ hypoactive bilaterally in the patella. They are 2+ normal elsewhere. The patient ambulates well and rises from a seated position without difficulty. She uses no assistive devices to walk. Her gait is nonantalgic and non spastic. (-) Brown's bilaterally, (-) clonus bilaterally, (-) Babinski's bilaterally, (-) bilateral straight leg raise. Imaging review: CT scan of the chest completed in October of last year shows a densely calcified lesion near the dorsal surface of the spinal cord at T5-6. Impression: Candi is a pleasant 73-year-old female who comes in today with a chief complaint of axial low back pain. She was referred to us for a densely calcified lesion noted in the thoracic spine last October. Generally speaking she appears asymptomatic from this lesion. She has no myelopathic reflexes, no gait disturbances, no dexterity issues, and no real sensational changes other than the tingling noted in the medial right calf. Typically this is something that would prompt me to send the patient for an MRI of the thoracic spine. Unfortunately due to her implantable cardiac device this is not possible without removal of the device. If the patient was symptomatic from this lesion I would be more concerned about possible removal of the device and/or ordering a dedicated thoracic myelogram. For the time being I believe the patient would be best served by evaluation from Neurology, and from being closely followed by a neurologist. If she does become more symptomatic than more aggressive diagnostic means may need to be considered. I will review the patient's history and imaging with the attending neurosurgeon Dr. Alex and update this note if he believes this lesion is more concerning requiring intervention. Thank you for allowing us to care for your patient. The total time spent with this visit with this patient was 45 minutes reviewing history, physical exam, CT imaging review, and implementation of treatment plan or further diagnostic testing Paolo Alex MD,PhD [facility] Orders: Referrals Neurology Referral M54.50 - Low back pain, unspecified Coding Level of Care Code New Pt Level 4 (83319) Diagnoses Lumbago M54.50
[2024-06-28 08:56] VITALS: BMI 23.0
== END 2024-06-28 09:33 | disposition home or self-care (01) ==
PROVIDERS: PCP Family Medicine; Referring Provider Family Medicine; Visit Provider Physician Assistant
DX: M54.50 Low back pain, unspecified (principal)
CPT/HCPCS: 99204

== ENCOUNTER → 2024-06-28 08:25 | Outpatient (BNVA) | payer OTHER, SELFPAY | PROVIDERS: PCP Family Medicine; Referring Provider Family Medicine; Visit Provider Physician Assistant | DX: M54.50 Low back pain, unspecified (principal) | CPT/HCPCS: 99202 ==

== ENCOUNTER 2024-07-05 08:27 | Outpatient (AMB) | payer OTHER, SELFPAY ==
--- NOTE | 2024-07-05 08:37 | MHC.OFFVIS ---
Vital Signs 07/05/24 08:38 Height 5 ft 3 in Weight 131 lb 2.801 oz BMI 23.2 BP 114/62 Blood Pressure Location Rt brachial Position Sitting Pulse 71 Pulse Source Pulse Oximeter Pulse Oximetry (%) 97 Oxygen Delivery Method Room Air Intake Visit Reasons: Cough Transmitter Engineer In Charge Required: Yes Transmitter Engineer In Charge Language: Char Filter Operator Helper Name: [id number] Ovtavio Allergies No Known Allergies Allergy (Verified 07/05/24 08:43) HPI HPI Cough: Details: 73-year-old lady, nonsmoker, with underlying AFib, chronic GERD, rheumatoid arthritis on methotrexate followed for pulmonary component of dyspnea on exertion and cough.? Patient has been using furosemide 20 mg daily with good control of dyspnea on exertion and lower extremity edema. Patient has ran out of her Breo and her reactive airway disease is not as well controlled. She is also complain of a bronchitic cough. [facility] Medical History (Updated 06/28/24 @ 09:44 by DALIA Hays) Polyarticular osteoarthritis Thyroid nodule greater than or equal to 1.5 cm in diameter incidentally noted on imaging study Thyroid nodule Helicobacter pylori gastritis Chronic cough On beta justine at home Nonischemic cardiomyopathy CHF (congestive heart failure) CAD (coronary artery disease) Thrombocytopenia Anemia Chronic GERD Elevated liver enzymes Seropositive rheumatoid arthritis Obesity (BMI 30-39.9) Vitamin D deficiency Dyslipidemia Hypertension 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 Mother No problems noted. Maternal Aunt Diabetes mellitus Social History Household Members: None Housing: Apartment Are you a primary youth care worker to a significant other at home: No Do you presently have visiting nurse or other home services: Yes (telephone) Alcohol intake: never Patient Tobacco Use Status: Never used Tobacco service: No Current occupational status: retired Current occupation: rt handed Review of Systems Const Denies daytime sleepiness, Denies excessive sweating, Denies fatigue, Denies fever(s), Denies lethargy, Denies malaise, Denies night sweats, Denies snoring and Denies weight loss Eyes Denies blurry vision and Denies itchy eyes ENT Denies nasal congestion, Denies post nasal drip, Denies sinus pain, Denies sinus pressure and Denies other ( Thrush) Card Denies chest pain, Denies pedal edema, Denies dyspnea, Denies orthopnea and Denies paroxysmal nocturnal dyspnea Resp Denies cough, Denies hemoptysis, Denies excessive phlegm production, Denies dyspnea, Denies snoring and Denies wheezing GI Denies abdominal pain and Denies heartburn Musc Denies myalgias, Denies arthralgias and Denies joint swelling Skin/Breast Denies rash Neuro Denies memory loss and Denies seizure-like activity Psych Denies abnormal sleep pattern, Denies anxiety and Denies memory loss Endo Denies excessive sweating, Denies fatigue and Denies heat intolerance Angelo/Lymph Denies easy bruising Aller/Immun Denies itchy eyes, Denies seasonal rhinorrhea and Denies wheezing Physical Exam Vital Signs: Last Vital Signs Pulse 71 07/05/24 08:38 BP 114/62 07/05/24 08:38 Pulse Ox 97 07/05/24 08:38 Oxygen Delivery Method Room Air 07/05/24 08:38 BMI result Body Mass Index 23.2 Const General: no acute distress and alert Nutritional Appearance: not obese Orientation/consciousness: Other orientation findings ( oriented) HEENT Head: Yes atraumatic Eyes General: appearance normal, both eyes and all related structures Sclerae: sclerae normal EOM: EOMs intact bilaterally Neck Neck: Yes supple Lymphatic: no lymphadenopathy noted Resp Effort & Inspection: normal respiratory effort and no use of accessory muscles Auscultation: clear to auscultation bilaterally Cardio Rate: regular rate Rhythm: regular rhythm Heart sounds: no gallops, no murmurs and no rubs Skin General skin exam: other ( warm) Extrem General: No clubbing, No cyanosis and No edema Assessment & Plan Assessment & Plan (1) Pulmonary nodules: Code(s): R91.8 - Other nonspecific abnormal finding of lung field Category: Surgical Plan: Follow-up CT chest is pending for October of 2024. (2) Dyspnea: Code(s): R06.00 - Dyspnea, unspecified Category: Medical Plan: On exertion and lower extremity edema, now well controlled on current regimen of furosemide 20 mg daily. Continue current regimen. (3) Cough: Code(s): R05.9 - Cough, unspecified Category: Medical Plan: Worsening symptoms of Breo. Restart Breo. Will treat with empiric course of azithromycin. Orders: Orders CT chest wo IV con 10/18/24 R91.8 - Other nonspecific abnormal finding of lung field Medications: New azithromycin For 250 mg dose pack: take 500 mg today (day 1), then 250 mg for 4 days (days 2-5) PO 6 tabs 0RF Refilled Breo Ellipta 200-25 mcg/dose (fluticasone furoate-vilanterol) 1 inh inhalation DAILY 30 days 1 ea 6RF NS Coding Level of Care Code Est Pt Level 4 (12883) Complex EM visit Add On G2211 Diagnoses Pulmonary nodules R91.8 Dyspnea R06.00 Cough R05.9
[2024-07-05 08:38] VITALS: BP 114/62; PULSE 71; O2SAT 97; BMI 23.2
== END 2024-07-05 09:03 | disposition home or self-care (01) ==
PROVIDERS: PCP Family Medicine; Visit Provider Internal Medicine Pulmonary Disease
DX: R91.8 Other nonspecific abnormal finding of lung field (principal); R06.00 Dyspnea, unspecified; R05.9 Cough, unspecified
CPT/HCPCS: 99214; G2211

== ENCOUNTER → 2024-07-05 08:27 | Outpatient (BNVA) | payer OTHER, SELFPAY | PROVIDERS: PCP Family Medicine; Visit Provider Internal Medicine Pulmonary Disease | DX: R05.9 Cough, unspecified (principal); R91.8 Other nonspecific abnormal finding of lung field; R06.00 Dyspnea, unspecified; I48.91 Unspecified atrial fibrillation; Z79.899 Other long term (current) drug therapy | CPT/HCPCS: 99212 ==

== ENCOUNTER 2024-07-17 08:24 | Outpatient (AMB) | payer OTHER, SELFPAY ==
--- NOTE | 2024-07-17 08:32 | MHC.AMDMED ---
Intake Intake Visit Reasons: T2DM Folder Tier Required: Yes Folder Tier Language: Medical Specialist Name: Candi [phone] Accompanied by: Other Relationship Allergies No Known Allergies Allergy (Verified 07/17/24 09:08) HPI Comprehensive Diabetes Asmnt Most Recent Diabetes Results: Microalb/Creat Ratio 386.0 ug/mg cr (<30) H 09/20/23 Cholesterol 139 mg/dL (<200) 09/20/23 HDL Cholesterol 51 mg/dL (>40) 09/20/23 Triglycerides 96 mg/dL (<150) 09/20/23 Creatinine 0.85 mg/dL (0.5-1.4) 05/09/24 Blood Urea Nitrogen 18 mg/dL (9-16) H 05/09/24 Sodium 140 mmol/L (135-145) 05/09/24 Potassium 4.3 mmol/L (3.3-5.1) 05/09/24 Chloride 105 mmol/L (96-108) 05/09/24 Carbon Dioxide 31 mmol/L (22-29) H 05/09/24 Calcium 9.4 mg/dL (8.4-10.2) 05/09/24 AST 46 U/L (5-31) H 05/09/24 ALT 34 U/L (0-31) H 05/09/24 Total Protein 6.4 g/dL (6.5-8.0) L 05/09/24 Albumin 3.1 g/dL (3.5-5.0) L 05/09/24 [facility] Medical History (Updated 06/28/24 @ 09:44 by DALIA Hays) Polyarticular osteoarthritis Thyroid nodule greater than or equal to 1.5 cm in diameter incidentally noted on imaging study Thyroid nodule Helicobacter pylori gastritis Chronic cough On beta justine at home Nonischemic cardiomyopathy CHF (congestive heart failure) CAD (coronary artery disease) Thrombocytopenia Anemia Chronic GERD Elevated liver enzymes Seropositive rheumatoid arthritis Obesity (BMI 30-39.9) Vitamin D deficiency Dyslipidemia Hypertension 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 Mother No problems noted. Maternal Aunt Diabetes mellitus Social History Household Members: None Housing: Apartment Are you a primary lawn caretaker to a significant other at home: No Do you presently have visiting nurse or other home services: Yes (telephone) Alcohol intake: never Patient Tobacco Use Status: Never used Tobacco service: No Current occupational status: retired Current occupation: rt handed Assessment & Plan Assessment & Plan (1) Diabetes type 1, uncontrolled: Code(s): E10.65 - Type 1 diabetes mellitus with hyperglycemia Plan: Personal Continuous Glucose Monitor: Patients CGM information reviewed, Pt uses Dexcom G6 with manager aerospace, patient reports that manager [employer] charging cord broke and she has been having difficulty at at keeping manager aerospace charged. Patient given new Dexcom G6 manager [employer] charging cord at today's visit Patient has prescriptions for Dexcom G7 sensor and manager [employer], she has not received either from pharmacy. She continues to receive Dexcom G6 sensors through the mail. Patient could not remember the name DME company Patient does have approval for Dexcom G7 in her chart. Requested new prescriptions be sent to [facility] pharmacy for Dexcom G7 supply Sensor data: Hypoglycemia: ? 0% Hyperglycemia: 58%? Time in Range:42%? Average glucose for the last 2 weeks? 202 mg/dL Glucose levels have been running above target. Patient reports that she had the flu recently, she also had 1 of her molars removed Reviewed sick day rules below: ? Glucose testing kit and strips or CGM sensors ? Ketone testing supplies ? Plenty of water or sugar-free beverages ? Continue to take your insulin even if you are not eating much. Take your long acting insulin or continue your basal insulin if you are on an insulin pump. ? Check your blood glucose values every 3-4 hours ? Stay well hydrated, drinking fluid every hour ? tea, water, diet soda, broth. ? Make sure you are also eating some carbohydrates When should I call for help? You have been sick or had a fever for a few days and are not getting better. ? You are vomiting or have diarrhea for more than 6 hours. ? You have moderate to large ketones even if your glucose is not high. ? Your blood glucose values stay above 250 mg/dl even when you are giving extra insulin. Patient able to insert sensor independently at home without issue.? Patient has follow-up visit with endocrine B2B SALES REPRESENTATIVE at 10:00AM Portions of this note were created using voice recognition software, please excuse any words or phrases that may have been misinterpreted. Patient Instructions: Trate todas las hipoglucemias con la rigoberto del 15s Revisar los folletos sobre las reglas para los d?as de enfermedad. Cuando reciba suministros Dexcom G7, comun?quese con el educador en diabetes para programar mukesh nasir. Coding Level of Care Code Est Pt Level 1 (71710) Diagnoses Diabetes type 1, uncontrolled E10.65
== END 2024-07-17 09:36 | disposition home or self-care (01) ==
PROVIDERS: PCP Family Medicine; Visit Provider Registered Nurse Diabetes Educator
DX: E10.65 Type 1 diabetes mellitus with hyperglycemia (principal)

== ENCOUNTER 2024-07-17 08:24 | Outpatient (AMB) | payer OTHER, SELFPAY ==
--- NOTE | 2024-07-17 08:52 | MHC.OFFVIS ---
Vital Signs 07/17/24 09:28 Height 5 ft 3 in Weight 130 lb 1.164 oz BMI 23.0 BP 144/75 H Blood Pressure Location Rt brachial Position Sitting Pulse 69 Pulse Source Pulse Oximeter Intake Visit Reasons: T2DM Intake Note: Patient presents today for a follow-up on Type 1 Diabetes Mellitus: Last Diabetic eye exam was on: DUE Last Podiatry exam was on: Patient does not see a Watch Crystal Edge Grinder Most recent HbA1c: 8.8%, 07/17/2024 Random Glucose- 287 mg/dL, Today Coppersmith Helper Required: Yes Coppersmith Helper Language: Orthopedic Dentist Services: Coppersmith Helper Present Accompanied by: Self / Same As Patient Allergies No Known Allergies Allergy (Verified 07/17/24 09:30) HPI Comments Details: Patient is a 73-year-old female with DM type 1 diagnosed 2009 who presents for management of diabetes. She was last seen for diabetes 02/2024 at which time she was changed to Tresiba insulin. She is also followed by Dr. Edmond for thyroid. She had an FNA of a nodule which was Afirma negative. Plan to repeat ulrasound in 6 months. She was seen by CDE last July and had discussed going to an ilet insulin pump. Previously had been on Omnipod but had skin reaction to pods. C peptide 0.47 09/2023 Micro and macrovascular complications: CAD, nephropathy Diabetes medications: Tresiba 26 units NovoLog sliding scale Breakfast and lunch 81-150? 3 units 151-200 4 units >200 6 -7 units supper 81-150? 4 units 151-200 5 units >200 7 units Dexcom average glucose: 202 day continuous glucose monitor report reviewed Glucose Managment indicator 8.1 % Days with CGM data [ ] % TIme in ranges: 23 % very high (above 250) 35 % high ?(181-250) 42 % in range ?(70-180] 0 % low (69-55) 1 % ?very low (below 54) Interpretation [having persistent mild lows in the morning ]. No retinopathy last eye exam 05/29 has glaucoma No neuropathy: Symptoms reported: denies numbness, tingling, cramping in lower extremities She does have some arthritis pain in her foot. She c/o a dry cough. Has h/o reflux in the past but has not been taking omeprazole regularly. No fever, sob, post nasal drip Exercise: limited Caster Operator - CDE education: Has been seen recently. Watch Crystal Edge Grinder: denies Dental exam: has upcoming appointment Ophthalmology evaluation:, last saw optho 05/2023, scheduled 05/29 reports no retinopathy has ash Has nephropathy; followed by Dr. Sinclair [facility] earlier this month for nephropathy and will be seen again. eGFR 47.9 12/2023, microalbumin 09/2023 386 Has non ischemic cardiomyopathy Other specialists: Rhueumatologist [facility] Medical History Polyarticular osteoarthritis Thyroid nodule greater than or equal to 1.5 cm in diameter incidentally noted on imaging study Thyroid nodule Helicobacter pylori gastritis Chronic cough On beta justine at home Nonischemic cardiomyopathy CHF (congestive heart failure) CAD (coronary artery disease) Thrombocytopenia Anemia Chronic GERD Elevated liver enzymes Seropositive rheumatoid arthritis Obesity (BMI 30-39.9) Vitamin D deficiency Dyslipidemia Hypertension 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 Mother No problems noted. Maternal Aunt Diabetes mellitus Social History Household Members: None Housing: Apartment Are you a primary critical care unit nurse to a significant other at home: No Do you presently have visiting nurse or other home services: Yes (telephone) Alcohol intake: never Patient Tobacco Use Status: Never used Tobacco service: No Current occupational status: retired Current occupation: rt handed Physical Exam Vital Signs: Last Vital Signs Pulse 69 07/17/24 09:28 BP 144/75 H 07/17/24 09:28 BMI result Body Mass Index 23.0 Results AMB Hemoglobin A1c AMB Hemoglobin A1c 8.8 % Last Edit by LILLY Tinsley on 07/17/24 09:46 Results Reviewed Results Reviewed: Laboratory Last Values Glucose (Clinic) 287 mg/dL (60-115) H 07/17/24 09:33 Hgb A1c (Clinic) 8.8 % (4.0-6.0) H 07/17/24 09:45 Assessment & Plan Assessment & Plan (1) Diabetes type 1, uncontrolled: Code(s): E10.65 - Type 1 diabetes mellitus with hyperglycemia Category: Medical Plan: 73 year old type 1 diabetic with recent hypoglycemia. Adjust insulin: Tresiba 22 units Meal insulin 81-150 4 units 151-200 5 units after 200 7 units The patient had an opportunity to ask questions regarding treatment plan. The patient expressed understanding and agreement with the above treatment plan. The patient is aware they should contact our office by phone for worsening glucose readings or for any low blood sugars which may warrant a change in diabetes medication. Compliance is encouraged with medications and any followup testing/consults which may have been ordered. Orders: Orders AMB Hemoglobin A1c Today E10.65 - Type 1 diabetes mellitus with hyperglycemia Medications: Refilled blood-glucose meter,continuous (Dexcom G7 Clinical Documentation Consultant) As directed 1 ea 0RF E10.65 - Type 1 diabetes mellitus with hyperglycemia blood-glucose sensor (Dexcom G7 Sensor device) As directed 3 ea 11RF E10.65 - Type 1 diabetes mellitus with hyperglycemia Patient Instructions: Take 15 carb carbohydrate grams to treat a low sugar (3-4 glucose tablets, half a glass of juice or 15 carbohydrate grams of soft candy such as gummie snacks). Recheck your sugar in 15 minutes and re-treat again with 15 carbohydrate grams if low or still with symptoms. Do not drive a car or operate machinery if you do not know what your blood sugar is, if it is low or in excess of 300. Check your feet daily looking for any signs of infection, drainage, redness, ulceration and seek medical attention if this occurs. Break in shoes gradually and do not wear open-toed shoes or walk stocking footed or barefooted. Coding Level of Care Code Est Pt Level 4 (75024) Complex EM visit Add On G2211 Diagnoses Diabetes type 1, uncontrolled E10.65 Time Spent (min) 30 Comment Time spent reviewing labs/provider notes, glucose,sensor reports, face to face, chart doc
[2024-07-17 09:28] VITALS: BP 144/75; PULSE 69; BMI 23.0
[2024-07-17 09:38] LABS: Glucose, Whole Blood 287 mg/dL (60-115)
== END 2024-07-17 10:01 | disposition home or self-care (01) ==
PROVIDERS: PCP Family Medicine; Visit Provider Nurse Practitioner Adult Health
DX: E10.65 Type 1 diabetes mellitus with hyperglycemia (principal)
CPT/HCPCS: 99214; G2211

== ENCOUNTER → 2024-07-17 08:24 | Outpatient (BNVA) | payer OTHER, SELFPAY | PROVIDERS: PCP Family Medicine; Visit Provider Registered Nurse Diabetes Educator | DX: E10.65 Type 1 diabetes mellitus with hyperglycemia (principal); Z79.4 Long term (current) use of insulin | CPT/HCPCS: 82947; 83036; 99211; 99212 ==

== ENCOUNTER 2024-07-30 10:05 | Outpatient (AMB) | payer OTHER, SELFPAY ==
--- NOTE | 2024-07-30 10:16 | MHC.AMDMED ---
Intake Intake Visit Reasons: setup Dexcom G7 training appt Vice President Diversity Required: Yes Vice President Diversity Language: Bag Bailer Name: Yahir [id number] Information Interpreted: non-clinical & clinical Accompanied by: Other Relationship Allergies No Known Allergies Allergy (Verified 07/17/24 09:30) HPI Comprehensive Diabetes Asmnt Most Recent Diabetes Results: Microalb/Creat Ratio 386.0 ug/mg cr (<30) H 09/20/23 Cholesterol 139 mg/dL (<200) 09/20/23 HDL Cholesterol 51 mg/dL (>40) 09/20/23 Triglycerides 96 mg/dL (<150) 09/20/23 Creatinine 0.85 mg/dL (0.5-1.4) 05/09/24 Blood Urea Nitrogen 18 mg/dL (9-16) H 05/09/24 Sodium 140 mmol/L (135-145) 05/09/24 Potassium 4.3 mmol/L (3.3-5.1) 05/09/24 Chloride 105 mmol/L (96-108) 05/09/24 Carbon Dioxide 31 mmol/L (22-29) H 05/09/24 Calcium 9.4 mg/dL (8.4-10.2) 05/09/24 AST 46 U/L (5-31) H 05/09/24 ALT 34 U/L (0-31) H 05/09/24 Total Protein 6.4 g/dL (6.5-8.0) L 05/09/24 Albumin 3.1 g/dL (3.5-5.0) L 05/09/24 PFSH Medical History Polyarticular osteoarthritis Thyroid nodule greater than or equal to 1.5 cm in diameter incidentally noted on imaging study Thyroid nodule Helicobacter pylori gastritis Chronic cough On beta justine at home Nonischemic cardiomyopathy CHF (congestive heart failure) CAD (coronary artery disease) Thrombocytopenia Anemia Chronic GERD Elevated liver enzymes Seropositive rheumatoid arthritis Obesity (BMI 30-39.9) Vitamin D deficiency Dyslipidemia Hypertension 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 Mother No problems noted. Maternal Aunt Diabetes mellitus Social History Household Members: None Housing: Apartment Are you a primary child care worker to a significant other at home: No Do you presently have visiting nurse or other home services: Yes (telephone) Alcohol intake: never Patient Tobacco Use Status: Never used Tobacco service: No Current occupational status: retired Current occupation: rt handed Assessment & Plan Assessment & Plan (1) Diabetes type 1, uncontrolled: Code(s): E10.65 - Type 1 diabetes mellitus with hyperglycemia Plan: Patient transitioning from Dexcom G6 sensors with peer support specialist to Dexcom G7 sensors was peer support specialist Instructed patient sensors water proof you can shower, or swim do not submerge sensor in water for over 30 minutes Is sensor falls off cannot put back in you need to replace sensor, customer service number given to patient for sensor replacement Sensor placed on the back of Right arm Patient left visit with sensor in warmup Reviewed how to interpret trend arrows Reminded patient that to check finger sticks if symptoms do not match sensor reading. Discussed lag time between finger stick and sensor data.? Instructed patient she should always keep blood glucometer for backup testing if needed Reviewed delay of CGM from fingersticks Reminded pt that if symptoms do not match sensor still needs to check fingersticks. Personal Continuous Glucose Monitor: Patients CGM information reviewed, Sensor data: Hypoglycemia: ?1% Hyperglycemia:?61% Time in Range:?38% Average glucose for the last 2 weeks? 216 mg/dL Patient taking Tresiba 21 units daily, patient is having general assignment reporter hypoglycemia, with steep downward excursion overnight. Discussed with patient the action of Tresiba, how this could affect general assignment reporter glucose levels Instructed patient to reduce Tresiba to 16 units daily Increase NovoLog by 1 unit each step of sliding scale Treat any hypoglycemia rule of 15s, patient reports she uses orange juice to treat hypoglycemia at home Follow-up with contact lens fitter in 10 days Portions of this note were created using voice recognition software, please excuse any words or phrases that may have been misinterpreted. Patient Instructions: Tresiba 16 units daily Novolog Meal insulin 81-150 5 units 151-200 6 units after 200 8 units Tresiba 16 unidades diarias Insulina de comida Novolog 81-150 5 unidades 151-200 6 unidades despu?s de 200 8 unidades Instrucciones para el paciente: CGM proporciona informaci?n sobre el control de la glucosa en jah a lo santos del d?a, incluidas la hiperglucemia y la hipoglucemia. Contin?e controlando la glucosa en jah seg?n las instrucciones. Siga las pautas de nutrici?n proporcionadas. Informe cualquier molestia de inmediato al proveedor de atenci?n m?dica. Mantente isacc hidratado. Puede ba?arse, ducharse, nadar y hacer ejercicio mientras usa el sensor de glucosa. No sumerja el sensor de glucosa en agua diana m?s de 30 minutos. Retire el sensor para mukesh resonancia magn?marilyn o mukesh tomograf?a computarizada. Evite la m?quina de galdino X en los aeropuertos: retire el sensor o solicite la varita Coding Level of Care Code Est Pt Level 1 (98112) Diagnoses Diabetes type 1, uncontrolled E10.65
--- OUTSIDE RECORDS SUMMARY | 2024-07-30 11:14 | XMS_ITS | Encounter Summary ---
Author Organization [employer] [facility] Address [address] [place] [address] [address] [place] [address] Care Team Providers Care Revenue Cycle Specialist Name Role Phone Gavi Aldana DO Primary Care Provider + [phone] Encounter Details Date Type Department Care Team (Latest Contact Info) Description 03/10/2022 Abstract [facility] CONVERSIONS Dental, Provider, DDS Social History Tobacco Use Types Packs/Day Years Used Date Smoking Tobacco: Never Assessed Comments Unknown Sex and Gender Information Value Date Recorded Sex Assigned at Female 04/05/2022 10:21 AM EDT Legal Sex Female 10:21 AM EDT Gender Identity Female 04/05/2022 10:21 AM EDT Sexual Orientation Choose not to disclose 2021 10:21 AM EDT documented as of this encounter Plan of Treatment Upcoming Encounters Date Type Department Care Team (Late st Contact Info) Description 08/28/2024 9:00 AM EDT Office Visit [facility] ADULT DENTAL [address] [place] [address] José Miguel Sy DDS [address] [place] [address] documented as of this encounter Visit Diagnoses Not on filedocumented in this encounter Care Teams Revenue Cycle Specialist Relationship Specialty Start Date End Date Gavi Aldana DO [address] [place] [address] PCP - General Family Medicine 06/06/18 documented as of this encounter
--- OUTSIDE RECORDS SUMMARY | 2024-07-30 11:14 | XMS_ITS | Encounter Summary ---
Author Organization [facility] Address [address] [place] [address] [address] [place] [address] Care Team Providers Care Switch Repairer Name Role Phone Gavi Aldana DO Primary Care Provider + [phone] Encounter Details Date Type Department Care Team (Latest Contact Info) Description 09/25/2018 Abstract [facility] CONVERSIONS Dental, Provider, DDS Social [...] Description 08/28/2024 9:00 AM EDT Office Visit [facility] ADULT DENTAL [address] [place] [address] José Miguel Sy DDS [address] [place] [address] documented as of this encounter Visit Diagnoses Not on filedocumented in this encounter Care Teams Switch Repairer Relationship Specialty Start Date End Date Gavi Aldana DO [address] [place] [address] PCP - General Family Medicine 06/06/18 documented as of this encounter
--- OUTSIDE RECORDS SUMMARY | 2024-07-30 11:14 | XMS_ITS | Encounter Summary ---
Author Organization [facility] Address [address] [place] [address] Care Team Providers Care Auto Mechanics Teacher Name Role Phone Gavi Aldana DO Primary Care Provider [phone] Reason for Visit * Reason Comments Follow-up Diabetic foot care Encounter Details Date Type Department Care Team (Late st Contact Info) Description 07/02/2024 9:00 AM EST Office Visit Orthopedic Surgery - [place] [address] [phone] Kota De La Torre, DPM [address] [address] Primary osteoarthritis of both feet (Primary Dx); Dermatophytosis of nail; Pain in toe of right foot; Tinea pedis of both feet; Pain in toe of left foot; Diabetic mononeuropathy simplex (CMS/HCC); Type II diabetes mellitus with peripheral circulatory disorder (CMS/HCC) Social History Tobacco Use Types Packs/Day Years Used Date Smoking Tobacco: Never Assessed Comments Unknown Sex and Gender Information Value Date Recorded Sex Assigned at Not on file Legal Sex Female 12:57 PM EST Gender Identity Not on file Sexual Orientation Not on file documented as of this encounter Last Filed Vital Signs Vital Sign Reading Time Taken Comments Blood Pressure - - Pulse - - Temperature - - Respiratory Rate - - Oxygen Saturation - - Inhaled Oxygen Concentration - - Weight 68 kg (150 lb) 07/02/2024 8:52 AM EST Height 149.9 cm (4' 11.02 ) 07/02/2024 8:[address] Body Mass Index 30.28 07/02/2024 8:52 AM EST documented in this encounter Ordered Prescriptions Prescription Sig Dispense Quantity Refills Last Filled Start Date End Date clotrimazole (LOTRIMIN) 1 % cream Apply topically 2 (two) times a day. 30 g 3 07/02/2024 5 diclofenac (Voltaren Arthritis Pain) 1 % topical gel Apply 4 g topically 2 (two) times a day. 240 g 1 07/02/2024 5 documented in this encounter Progress Notes * Kota De La Torre, DPM - 07/02/2024 9:00 AM EST Last PCP visit:Referring MD: Gavi Aldana MD 05/28/24 S Patient presents for evaluation of her feet she is a type II diabetic states she has elongated painful thickened nails that bother her causing this she has numbness burning tingling her feet states she has extensive swelling both lower extremities below for prolonged period time states she is very frustrated at the swelling the pain discomfort as well as the thickened nails that she has chronic pain as well across her feet at the end of the day with heavy activity Reports worsening pain discomfort across the balls below her feet and great toes specifically of her joints she also reports that she is getting a lot of itchiness of her skin and rash presents today with her daughter present requiring film booker ID number [id number] ROS: GENERAL: Pt denies nausea, fever, vomiting, chills, or shortness of breath. Pt in NAD. CARDIOLOGY: pt denies chest pain, palpitations LUNGS: pt denies shortness of breath MUSCULOSKELETAL: See HPI, otherwise no joint pain or swelling, back pain, or muscle pain. SKIN: see HPI, otherwise no lesions, rash or itching NEURO: No persistent headache, weakness or numbness The remainder of the review of systems is noncontributory PAST MEDICAL HISTORY: Patient Active Problem List Diagnosis Code Non-ischemic cardiomyopathy, severe, EF <20%, s/p BiV AICD, [facility] I42.8 Hypertension I10 Hyperlipidemia LDL goal < 70 E78.5 DM type 2 (diabetes mellitus, type 2) ([facility]) E11.9 SOCIAL HISTORY: Social History Tobacco Use Smoking status: Never Smokeless tobacco: Not on file Substance Use Topics Alcohol use: Not on file History Last Reviewed by Gavi Hernández M.A. on 05/04/2012 at 10:33 AM Sections Reviewed Tobacco ACTIVE MEDICATIONS: Current Outpatient Medications Medication Sig Dispense Refill MetFORMIN HCl 500 MG TB24 Take 500 mg by mouth 2 times daily. glipiZIDE (GLUCOTROL) 5 MG tablet Take 2.5 mg by mouth daily. simvastatin (ZOCOR) 20 MG tablet Take 20 mg by mouth at bedtime. valsartan (DIOVAN) 160 MG tablet Take 160 mg by mouth daily. carvedilol (COREG) 25 MG tablet Take 25 mg by mouth 2 times daily (with meals). spironolactone (ALDACTONE) 25 MG tablet Take 25 mg by mouth daily. furosemide (LASIX) 40 MG tablet Take 40 mg by mouth daily. digoxin (LANOXIN) 0.25 MG tablet Take 250 mcg by mouth daily. aspirin (SB LOW DOSE ASA EC) 81 MG EC tablet Take 81 mg by mouth daily. Loratadine (CLARITIN) 10 MG CAPS Take by mouth. fluticasone (FLONASE) 50 MCG/ACT nasal spray 2 Sprays by Each Nare route daily. Insulin Glargine (LANTUS SC) Inject into the skin. No current facility-administered medications for this visit. ALLERGIES: Patient has no known allergies. PHYSICAL EXAM: Height 4' 11 (1.499 m), weight 150 lb (68 kg). Estimated body mass index is 30.3 kg/m?? as calculated from the following: Height as of this encounter: 4' 11 (1.499 m). Weight as of this encounter: 150 lb (68 kg). PODIATRIC EXAMINATION: GENERAL: Patient appears well nourished, with NAD. VASCULAR: Dorsalis pedis pulses are 0/4 bilaterally and Posterior tibial pulses are 0/4 bilaterally. Capillary filling time within normal limits the digits. No pallor on elevation or rubor on dependency. hair growth. No varicosities. Denies rest pain or claudication pain. Plus for pain edema bilateral extremities NEUROLOGICAL: Sharp/dull sensation intact, protective sensation intact 10/10 with 5.07 semmes patti bilaterally, vibratory sensation with tuning fork intact to the tibial tuberosity. ORTHOPEDIC: Good muscle strength 5/5 of all flexors and extensors. Dorsi flexion of ankle ,10 degrees, plantar flexion WNL. No muscle atrophy. DERMATOLOGICAL:. Toenails: Left Toenail(s) 1-5: Crumbling upon debridement, subungual debris, discoloration, dystrophy, elongation, mycotic appearance, onychomycosis, pain and thickening. Right Toenail(s) 1-5: Crumbling upon debridement, subungual debris, discoloration, dystrophy, elongation, mycotic appearance, onychomycosis, pain and thickening. Annular scaling bilateral feet moccasin distribution BIOMECHANICS: STJ ROM mild crepitation bilateral, MTJ ROM crepitation bilateral, 1st MPJ ROM crepitation mild. IMAGING: IMPRESSION: 1. Primary osteoarthritis of both feet 2. Dermatophytosis of nail 3. Pain in toe of right foot 4. Tinea pedis of both feet 5. Pain in toe of left foot 6. Diabetic mononeuropathy simplex (CMS/HCC) 7. Type II diabetes mellitus with peripheral circulatory disorder (CMS/HCC) PLAN: Pt was seen and examined, history reviewed. Worsening arthritis of both feet was discussed and reviewed Voltaren gel prescribed Discussed possible benefits from repeat radiographs most recent taken in January Diabetic shoes and inserts recommended Worsening dermatophytosis of skin discussed and reviewed Lotrimin prescribed printed prescription given given the patient's issues getting e-prescribed lastappointment Follow-up with vascular surgery for compression therapy Discussed with patient regarding proper glucose control, exercise, and diet. Explained to patient proper shoe gear, and importance of daily foot checks. I reviewed neuropathy and why it occurs in diabetics. I educated the patient on proper blood sugar control and the importance of an HgBA1c of less than 7.0%. I reviewed the signs and symptoms of neuropathy with the patient Treatment options for osteoarthritis were discussed and reviewed specific to steroid injections plain radiographs anti-inflammatory topicals would really focus with patient on supportive shoe gear which did discussed and reviewed accommodative shoe gear which is difficult given patient's extensive swelling Pt to return for another evaluation in 1-3 months. Debridement of mycotic toenails 6-10: Verbal informed consent was obtained from the patient. Greater than 6 nails were aseptically debrided in thickness and length with nail nippers Kota De La Torre DPM documented in this encounter Plan of Treatment Upcoming Encounters Date Type Department Care Team (Late st Contact Info) Description 08/09/2024 11:00 AM EST Consult Vascular Surgery - [place] [address] [facility] [address] [place] [address] Jerrica Norton PA [address] [facility] [address] [place] [address] 10/01/2024 9:00 AM EDT Office Visit Orthopedic Surgery - [place] 250 [address] [facility] [address] [place] [phone] Kota De La Torre, DPM [address] [facility] [address] [place] [address] documented as of this encounter Visit Diagnoses Diagnosis Primary osteoarthritis of both feet- Primary Dermatophytosis of nail Pain in toe of right foot Pain in soft tissues of limb Tinea pedis of both feet Pain in toe of left foot Pain in soft tissues of limb Diabetic mononeuropathy simplex (CMS/HCC) Type II 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
--- OUTSIDE RECORDS SUMMARY | 2024-07-30 11:15 | XMS_ITS | Encounter Summary ---
Author Organization [employer] Address [address] [facility] 7t [place] [address] Care Team Providers Care Machinery Dismantler Name Role Phone Gavi Aldana DO Primary Care Provider + [phone] Reason for Visit * Reason Comments Routine Cleaning Dental Exam x-rays perio chart Encounter Details Date Type Department Care Team ([facility] st Contact Info) Description 07/04/2024 9:00 AM EST Office Visit [facility] ADULT DENTAL [address] [place], [place] [phone] [facility] [address] [place], [place] [phone] Dental caries into pulp (Primary Dx); Dental calculus; Localized gingival recession; Dental caries; Missing teeth, acquired; Chronic dental pain Social History Tobacco Use Types Packs/Day Years Used Date Smoking Tobacco: Never Passive Smoke Exposure: Never Smokeless Tobacco: Never Alcohol Use Standard Drinks/Week Comments Never 0 (1 standard drink = 0.6 oz pur e alcohol) Depression Answer Date Recorded Patient Health Questionnaire-9 Score 1 06/15/2023 Patient Health Questionnaire-9 Score 1 06/15/2023 Last PHQ-9: Questionnaire Data Not on file 0 06/15/2023 Housing Stability Answer Date Recorded What is your housing situation today? I have luis shields 10/24/[address] you li ve. Do you have problems with any of the following? None of the above 10/24/2023 Food Insecurity Answer Date Recorded Within the past 12 months, y ou worried that your food would run out before you got money to buy more: Never True 06/15/2023 Within the past 12 months,th e food you bought just didn't last and you didn't have enough money to get more: Never True 03/2024 Transportation Answer Date Recorded In the past 12 months, has l ack of transportation kept you from medical appts, meetings, work or from getting things needed for daily living? No 06/15/2023 Utilities Answer Date Recorded In the past 12 months, has t he electric, gas, oil or water company threatened to shut off services in your home? I am not sure 10/24/2023 Depression Answer Date Recorded Patient Health Questionnaire-2 Score 0 06/15/2023 Comments Unknown Sex and Gender Information Value Date Recorded Sex Assigned at Female 04/05/2022 10:21 AM EDT Legal Sex Female 10:21 AM EDT Gender Identity Female 04/05/2022 10:21 AM EDT Sexual Orientation Choose not to disclose 2021 10:21 AM EDT documented as of this encounter Last Filed Vital Signs Vital Sign Reading Time Taken Comments Blood Pressure 124/76 07/04/2024 9:05 AM EST Pulse - - Temperature - - Respiratory Rate - - Oxygen Saturation - - Inhaled Oxygen Concentration - - Weight - - Height - - Body Mass Index - - documented in this encounter Progress Notes * Laura Dow - 07/04/2024 9:00 AM EST Patient ID: Candi Sanchez is a 73 y.o. female. Time Out: Timeout Date: 07/04/24, Timeout Time: 09 (Prophy, x-rays P. exam, Perio chart) Location: [facility] Tooth: Maxilla and Mandible Procedure: Exam, X-rays, and Perio chart. Due to in pain and with abscess #14 no prophy to day and Pt to return for EXO first. Verified the above with patient, medical office assistant, and provider. Confirmed via patient's chart, intraorally and by radiographs. Right Of Way Buyer: not applicable Medical Hx: Vitals: Blood pressure 124/76. Medications, Med Hx reviewed with patient and updated in chart. Treatment Provided Dental procedures in this visit D0274 - BITEWINGS - 4 RADIOGRAPHIC IMAGES (Completed) Service provider: Laura Dow Billtoby provider: José Miguel Sy DDS D1330 - ORAL HYGIENE INSTRUCTIONS (Completed) Service provider: Laura Dow Billtoby provider: José Miguel Sy DDS D94 - ADJUNCTIVE GENERAL SERVICES - PROFESSIONAL VISITS - CASE PRESENTATION, SUBSEQUENT TO DETAILED AND EXTENSIVE TREATMENT PLANNING (Completed) Service provider: Laura Dow Billing provider: José Miguel Sy DDS D0220 - INTRAORAL - PERIAPICAL FIRST RADIOGRAPHIC IMAGE (Completed) Service provider: Laura Dow Billing provider: José Miguel Sy DDS D0230 - INTRAORAL - PERIAPICAL EACH ADDITIONAL RADIOGRAPHIC IMAGE (Completed) Service provider: Laura Dow Billing provider: José Miguel Sy DDS D0230 - INTRAORAL - PERIAPICAL EACH ADDITIONAL RADIOGRAPHIC IMAGE (Completed) Service provider: Laura Dow Billing provider: José Miguel Sy DDS D0230 - INTRAORAL - PERIAPICAL EACH ADDITIONAL RADIOGRAPHIC IMAGE (Completed) Service provider: Laura Dow Billtoby provider: José Miguel Sy DDS Pt gags easily, difficult to take straight radiographs Instruments Used: Perio probe and x-rays sensor Oral Cancer Screening: No lesions Head/Neck Exam: moles on face Calculus: Light and Moderate Plaque: Light and Moderate Stain: Light Bleeding: light upon probing Gingiva: Edematous around #14 OH: Fair Perio Chart: Completed: very few scattered 4 mm pockets SRP not warranted at this time Oral hygiene instructions provided to patient including brushing technique and flossing. Recommendations: Odem two times daily, modified espinal technique, Floss daily, Electric toothbrush, Soft bristle toothbrush, Odem Tongue, Anti-sensitivity toothpaste Recall Frequency: ASA available The prophy should be done at least 4 weeks after EXO #14 to allow site to heal. NV: Dr. Sy for EXO #14 Hygienist: Laura Dow RDH * José Miguel Sy DDS - 07/04/2024 9:00 AM EST Dental procedures in this visit D0274 - BITEWINGS - 4 RADIOGRAPHIC IMAGES (Completed) Service provider: Laura Dow Billtoby provider: José Miguel Sy DDS D1330 - ORAL HYGIENE INSTRUCTIONS (Completed) Service provider: Laura Dow Billtoby provider: José Miguel Sy DDS D9450 - ADJUNCTIVE GENERAL SERVICES - PROFESSIONAL VISITS - CASE PRESENTATION, SUBSEQUENT TO DETAILED AND EXTENSIVE TREATMENT PLANNING (Completed) Service provider: Laura Dow Billing provider: José Miguel Sy DDS D0220 - INTRAORAL - PERIAPICAL FIRST RADIOGRAPHIC IMAGE (Completed) Service provider: Laura Dow Billing provider: José Miguel Sy DDS D0230 - INTRAORAL - PERIAPICAL EACH ADDITIONAL RADIOGRAPHIC IMAGE (Completed) Service provider: Laura Dow Billing provider: José Miguel Sy DDS D0230 - INTRAORAL - PERIAPICAL EACH ADDITIONAL RADIOGRAPHIC IMAGE (Completed) Service provider: Laura Dow Billing provider: José Miguel Sy DDS D0230 - INTRAORAL - PERIAPICAL EACH ADDITIONAL RADIOGRAPHIC IMAGE (Completed) Service provider: Laura Dow Billing provider: José Miguel Sy DDS D0150 - COMPREHENSIVE ORAL EVALUATION - NEW OR ESTABLISHED PATIENT (Completed) Service provider: José Miguel Sy DDS Billtoby provider: José Miguel Sy DDS Patient ID: Candi Sanchez is a 73 y.o. female. Time Out: Timeout Date: 07/04/24, Timeout Time: 0914 (Prophy, x-rays P. exam, Perio chart) Location: [facility] Tooth: Maxilla and Mandible Procedure: Exam and X-rays Verified the above with patient, medical office assistant, and provider. Confirmed via patient's chart, intraorally and by radiographs. Right Of Way Buyer: not applicable Chief Complaint Patient presents with Routine Cleaning Dental Exam x-rays perio chart Medical Hx: Vitals: Blood pressure 124/76. 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 Medications: Outpatient Encounter Medications as of 07/04/2024 Medication Sig Dispense Refill acetaminophen (Tylenol 8 Hour) 650 MG ER tablet TAKE 1 TABLET BY MOUTH EVERY 8 HOURS NEEDED FOR MILD PAIN 30 tablet 0 amitriptyline (Elavil) 10 MG tablet Take 0.5 tablets (5 mg) by mouth at bedtime. 15 tablet 3 atorvastatin (Lipitor) 10 MG tablet Take 10 mg by mouth in the morning. baclofen (Lioresal) 10 MG tablet Take 10 mg by mouth if needed in the morning, at noon, and at bedtime. BD Pen Needle Thania U/F 32G X 4 MM misc USE DIRECTED FOUR TIMES DAILY benzonatate (Tessalon) 100 MG capsule TAKE 1 CAPSULE BY MOUTH THREE TIMES DAILY NEEDED FOR COUGH30 capsule 0 Breo Ellipta 200-25 MCG/ACT aerosol powder INHALE 1 PUFF BY MOUTH EVERY DAY AT THE SAME TIME cholecalciferol (Vitamin D-3) 50 MCG (2000 UT) capsule Take 1 capsule (50 mcg) by mouth Once per day. 30 capsule 11 clotrimazole (Lotrimin) 1 % cream APPLY TO THE AFFECTED AREA(S) AND SURROUNDING AREA(S) TOPICALLY TWICE DAILY IN THE MORNING AND IN THE EVENING 60 g 2 digoxin (Lanoxin) 125 MCG tablet Take 125 mcg by mouth in the morning. Eliquis 5 MG tablet Take 5 mg by mouth 2 times daily. Entresto 49-51 MG tablet Take 1 tablet by mouth 2 times daily. FeroSul 325 (65 Fe) MG tablet Take 1 tablet by mouth in the morning. fexofenadine (Barbara) 180 MG tablet Take 1 tablet (180 mg) by mouth if needed each day (Allergies). 30 tablet 11 folic acid (Folvite) 1 MG tablet Take 1,000 mcg by mouth in the morning. FREESTYLE LITE test strip TEST BLOOD SUGAR FOUR TIMES DAILY furosemide (Lasix) 20 MG tablet gabapentin (Neurontin) 100 MG capsule TAKE 2 CAPSULES BY MOUTH EVERY EVENING 60 capsule 1 glucose 4 g chewable tablet CHEW 2 TO 4 TABLETS BY MOUTH NEEDED FOR LOW BLOOD SUGAR 30 tablet 5 Lantus SoloStar 100 UNIT/ML pen melatonin 5 MG tablet TAKE 1 OR 2 TABLETS BY MOUTH AT BEDTIME NEEDED FOR SLEEP 60 tablet 3 methotrexate 2.5 MG tablet TAKE 8 TABLETS BY MOUTH ONCE WEEK metoprolol tartrate (Lopressor) 100 MG tablet Take 100 mg by mouth with breakfast and with evening meal. NovoLOG FLEXPEN 100 UNIT/ML pen INJECT 3-6 UNITS SUBCUTANEOUSLY THREE TIMES DAILY Nystop 881112 UNIT/GM powder APPLY TO THE AFFECTED AREA(S) TWICE DAILY 60 g 5 omeprazole (PriLOSEC) [address] capsule Take 1 capsule (40 mg) by mouth before breakfast and before evening meal. 60 capsule 11 Skin Protectants, Misc. (eucerin) cream apply topically to dry skin 2-3times a day Skin Protectants, Misc. (Minerin Creme) cream APPLY TO DRY SKIN 2 TO 3 TIMES PER DAY 454 g 4 spironolactone (Aldactone) 25 MG tablet Take 25 mg by mouth in the morning. TRUEplus Glucose On The Go 4 g chewable tablet CHEW 2 TO 4 TABLETS NEEDED FOR LOW BLOOD SUGAR TRUEplus Lancets 33G misc TEST BLOOD SUGAR THREE OR FOUR TIMES DAILY UltiCare Short Pen Joes 31G X 8 MM misc USE DIRECTED FOUR TIMES DAILY No facility-administered encounter medications on file as of 07/04/2024. Objective HPI Asymptomatic at this time Head and Neck Exam: Lymph Nodes, Lips, Palate, Buccal Mucosa, Floor of Mouth, Tongue, Tonsils, Alveolar Ridges, Oropharynx, Salivary Ducts, and Vestibules normal appearance . Details: Skin WNL OCS: negative Dental Exam As charted Reference tooth chart for additional findings. Oral Cancer Risk: Low Risk Oral Hygiene Instructions: Odem two times daily, modified espinal technique, Floss daily, Electric toothbrush, Soft bristle toothbrush, Odem Tongue Caries Risk Assessment: High- two or more risk factors Multiple carious lesions Assessment/Plan YOVANNY X Rays Prescription to control infection Extraction # 14 dental abscess Prophy after 4 weeks (exo #14)for post op healing Patient tolerated procedure well, all questions answered and expressed understanding. Dismissed in good condition. NV: Exo # 14 Auto Fleet Maintenance Manager: Laura Dow RDH Dentist: José Miguel Sy DDS documented in this encounter Plan of Treatment Upcoming Encounters Date Type Department Care Team (Late st Contact Info) Description 08/28/2024 9:00 AM EDT Office Visit [facility] ADULT DENTAL [address] [place] [address] José Miguel Sy DDS [address] [place] [address] Scheduled Orders Name Type Priority Associated Diagnoses Orde r Schedule 3 BB(V) 3 BB(V) RESTORATIVE - RESIN-BASED COMPOSITE RESTORATIONS - DIRECT - RESIN-BASED COMPOSITE - ONE SURFACE, POSTERIOR Dental Routine [address] arting 07/04/2024 4 DO 4 DO RESTORATIVE - RESIN-BASED COMPOSITE RESTORATIONS - DIRECT - RESIN-BASED COMPOSITE - TWO SURFACES, POSTERIOR Dental Routine 1 Occur rences starting 07/04/2024 5 DO 5 DO RESTORATIVE - RESIN-BASED COMPOSITE RESTORATIONS - DIRECT - RESIN-BASED COMPOSITE - TWO SURFACES, POSTERIOR Dental Routine 1 Occur rences starting 07/04/2024 8 MIDL 8 MIDL RESIN-BASED COMPOSITE - 4 OR MORE SURFACES (ANTERIOR) Dental Routine 1 Occurrence s starting 07/04/2024 10 MFL 10 MFL RESTORATIVE - RESIN-BASED COMPOSITE RESTORATIONS - DIRECT - RESIN-BASED COMPOSITE - THREE SURFACES, ANTERIOR Dental Routine 1 Occu rrences starting 07/04/2024 12 DO 12 DO RESTORATIVE - RESIN-BASED COMPOSITE RESTORATIONS - DIRECT - RESIN-BASED COMPOSITE - TWO SURFACES, POSTERIOR Dental Routine 1 Occur rences starting 07/04/2024 15 B(V) 15 B(V) RESTORATIVE - RESIN-BASED COMPOSITE RESTORATIONS - DIRECT - RESIN-BASED COMPOSITE - ONE SURFACE, POSTERIOR Dental Routine [address] arting 07/04/2024 20 DB(V) 20 DB(V) RESTORATIVE - RESIN-BASED COMPOSITE RESTORATIONS - DIRECT - RESIN-BASED COMPOSITE - TWO SURFACES, POSTERIOR Dental Routine [address] arting 07/04/2024 21 B(V) 21 B(V) RESTORATIVE - RESIN-BASED COMPOSITE RESTORATIONS - DIRECT - RESIN-BASED COMPOSITE - ONE SURFACE, POSTERIOR Dental Routine [address] arting 07/04/2024 31 DOBB(V) 31 DOBB(V) RESTORATIVE - RESIN-BASED COMPOSITE RESTORATIONS - DIRECT - RESIN-BASED COMPOSITE - THREE SURFACES, POSTERIOR Dental Routine 1 Occurrenc es starting 07/04/2024 documented as of this encounter Procedures Procedure Name Priority Date/Time Associated Diagnosis Comments ORAL HYGIENE INSTRUCTIONS Routine 2024 9:00 AM EST Dental caries into pulp Dental calculus Localized gingival recession Dental caries Missing teeth, acquired INTRAORAL - PERIAPICAL FIRST RADIOGRAPHIC IMAGE Routine 07/04/2024 9:00 AM EST Dental caries into pulp Dental calculus Localized gingival recession Dental caries Missing teeth, acquired INTRAORAL - PERIAPICAL EACH ADDITIONAL RADIOGRAPHIC IMAGE Routine 07/04/2024 9:00 AM EST Dental caries into pulp Dental calculus Localized gingival recession Dental caries Missing teeth, acquired INTRAORAL - PERIAPICAL EACH ADDITIONAL RADIOGRAPHIC IMAGE Routine 07/04/2024 9:00 AM EST Dental caries into pulp Dental calculus Localized gingival recession Dental caries Missing teeth, acquired INTRAORAL - PERIAPICAL EACH ADDITIONAL RADIOGRAPHIC IMAGE Routine 07/04/2024 9:00 AM EST Dental caries into pulp Dental calculus Localized gingival recession Dental caries Missing teeth, acquired COMPREHENSIVE ORAL EVALUATION - NEW OR ESTABLISHED PATIENT Routine 07/04/2024 9:00 AM EST CASE PRESENTATION, DETAILED AND EXTENSIVE TREATMENT PLANNING Routine 07/04/2024 9:00 AM EST Dental caries into pulp Dental calculus Localized gingival recession Dental caries Missing teeth, acquired BITEWINGS - 4 RADIOGRAPHIC IMAGES Routine 07/04/2024 9:00 AM EST Dental caries into pulp Dental calculus Localized gingival recession Dental caries Missing teeth, acquired 3 O AMALGAM FILLING Routine 07/04/2024 1 2:00 AM EST documented in this encounter Visit Diagnoses Diagnosis Dental caries into pulp- Primary Dental calculus Accretions on teeth Localized gingival recession Gingival recession, localized Dental caries Unspecified dental caries Missing teeth, acquired Chronic dental pain documented in this encounter Additional Health Concerns Assessment Noted Time PHQ-9 Depression Total Score: 1 06/15/19 24 10:29 AM EST documented as of this encounter Care Teams Machinery Dismantler Relationship Specialty Start Date End Date Gavi Aldana DO [address] [place] [id number] PCP - General Family Medicine 06/06/18 documented as of this encounter
--- OUTSIDE RECORDS SUMMARY | 2024-07-30 11:15 | XMS_ITS | Encounter Summary ---
Author Organization [facility] Address [address] [place] [address] 7[address] [place] [address] Care Team Providers Care Router Setter Name Role Phone Gavi Aldana DO Primary Care Provider + [phone] Encounter Details Date Type Department Care Team (Late st Contact Info) Description 07/22/2022 Orders Only [facility] PED[facility] [address] [place] [address] Gavi Duarte LPN Social History Tobacco Use Types Packs/Day Years Used Date Smoking Tobacco: Never Smokeless Tobacco: Never Alcohol Use Standard Drinks/Week Comments Never 0 (1 standard drink = 0.6 oz pur e alcohol) Comments Unknown Sex and Gender Information Value [...] Description 08/28/2024 9:00 AM EDT Office Visit [facility] ADULT DENTAL [address] [place] [address] José Miguel Sy DDS [address] [place] [address] documented as of this encounter Visit Diagnoses Not on filedocumented in this encounter Care Teams Router Setter Relationship Specialty Start Date End Date Gavi Aldana DO [address] [place] [address] PCP - General Family Medicine 06/06/18 documented as of this encounter
--- OUTSIDE RECORDS SUMMARY | 2024-07-30 11:15 | XMS_ITS | Encounter Summary ---
Author Organization [employer] [facility] Address [address] [place] [address] [address] [place] [address] Care Team Providers Care Nursery Nurse Name Role Phone Gavi Aldana DO Primary Care Provider + [phone] Reason for Visit * Reason Comments Med Refill Encounter Details Date Type Department Care Team (Late Contact Info) Description 10/11/2022 Refill [facility] MEDICINE [address] [place] [address] Gavi Aldana DO [address] [place] [address] Other chronic pain Social History Tobacco Use Types Packs/Day [...] Encounters Date Type Department Care Team (Late Contact Info) Description 08/28/2024 9:00 AM EDT Office Visit [facility] ADULT DENTAL [address] [place] [address] José Miguel Sy DDS [address] [place] [address] documented as of this encounter Visit Diagnoses Diagnosis Other chronic pain documented in this encounter Care Teams Nursery Nurse Relationship Specialty Start Date End Date Gavi Aldana DO [address] [place] [address] PCP - General Family Medicine 06/06/18 documented as of this encounter
--- OUTSIDE RECORDS SUMMARY | 2024-07-30 11:15 | XMS_ITS | Encounter Summary ---
Author Organization [employer] Address [address] [facility] 7t [place] [address] Care Team Providers Care Agricultural Service Technician Name Role Phone FlacoGavi humphreys Primary Care Provider + [phone] Encounter Details Date Type Department Care Team (Late st Contact Info) Description 09/14/2023 Orders Only [facility] MEDICINE [address] [place] [address] ProviderMeliton MD Social History Tobacco Use Types Packs/Day Years [...] Recorded What is your housing situation today? Not on val e 06/15/[address] you li ve. Do you have problems with any of the following? None of the above 06/15/2023 Food Insecurity Answer Date Recorded Within the [...] to shut off services in your home? No 06/15/2023 Depression Answer Date Recorded Patient Health Questionnaire-2 [...] Description 08/28/2024 9:00 AM EDT Office Visit [facility] ADULT DENTAL [address] [place], [place] [phone] José Miguel Sy DDS [address] [place], [place] [phone] documented as of this encounter Procedures Procedure Name Priority Date/Time Associated Diagnosis Comments HM COLONOSCOPY Routine 07/28/2021 2:52 PM EST documented in this encounter Results * Hm Colonoscopy (07/28/2021 2:52 PM EST) us Historical Provider HEALTH MAINTENANCE Final Result documented in this encounter Visit Diagnoses Not on filedocumented in this encounter Additional Health Concerns Assessment Noted Time PHQ-9 Depression Total Score: 1 06/15/19 24 10:29 AM EST documented as of this encounter Care Teams Agricultural Service Technician Relationship Specialty Start Date End Date Gavi Aldana DO [address] [place] [address] PCP - General Family Medicine 06/06/18 documented as of this encounter
--- OUTSIDE RECORDS SUMMARY | 2024-07-30 11:15 | XMS_ITS | Continuity of Care Document ---
Author Organization [place] - [facility], [facility] Address [address] [place] [address] Care Team Providers Care Oil Mixer Name Role Phone MARTINEZ VIZCARRA Primary Care Provider Assessment Encounter Date Assessment Date Assessment LastModified by Organization Details LastModified Time 07/30/2024 07/30/2024 Patient's audiogram shows bilateral severe sensorineural hearing loss with well maintained speech discrimination. There is enough hearing loss to affect day-to-day hearing performance. We discussed in detail the pros and cons of amplification (hearing aids). Patient would like to learn more about this option so I have provided a copy of the audiogram, a list of [facility] hearing aid providers, and medical clearance for amplification so the patient can pursue this at their convenience. Patient is medically cleared for amplification bilaterally. [email or web address] Not available 07/30/2024 09:41:51 Plan of Treatment Reminders Order Date Submit Date Provider Last Modified By Organization Details Last Modified Time Details Appointments Hearing Test 2024 09:00A M Hearing Test Not available Not available Not available Establish ed 15 2024 09:45A M WYATT NAVA MD Not available Not available Not available Lab None recorded. Referral None recorded. Procedures None recorded. Surgeries None recorded. Imaging None recorded. Medication Orders None recorded. Patient TargetsNo targets recorded. Patient InstructionsNo instructions recorded. Reason for Referral None Reported. Results Created Date Observation Date Name Description Value Unit Range Abnormal Flag Note LastModifiedBy Organization Detail LastModifiedTime 07/30/19 25 audio gram No observ ation record ed. BARCODE Not Available 2024 10:12:10 Result Notes None recorded. Problems Name Problem SNOMED Code Status Onset Date Resolution Date Notes Provider Name and Address Organization Details Recorded Time Dizziness and giddiness 339893774 Active 2018 Dizziness and giddiness ; Note: Date Diagnosed : 01/25/2019 11:02 AM (R42) Not Available [facility] 4 02:39:47 Impacted cerumen of bilateral ears [id number] 89380 Active 2018 Impacted cerumen, bilateral ; Note: Date Diagnosed : 01/25/2019 11:05 AM (H61.23) Not Available [facility] 4 02:39:43 Bilateral tinnitus 26909324349 02 Active 2018 Tinnitus, bilateral ; Note: Date Diagnosed : 01/25/2019 11:24 AM (H93.13) Not Available [facility] 4 02:39:43 Cough 01576101 Active 2020 Cough, unspecifi ed; Note: Changed from R05 to R05.9 ( 4 9:23 AM) , Date Diagnosed : 02/11/2021 10:17 AM (R05) WYATT NAVA MD [address] [place] [address], [place], [address] , [facility] 4 10:02:57 Benign paroxysma l positiona l vertigo 977411841 Active 2018 Benign paroxysma l vertigo, unspecifi ed ear; Note: Date Diagnosed : 01/25/2019 11:03 AM (H81.10) Not Available [facility] 4 02:39:53 Sensorine ural hearing loss of bilateral ears 158470170 Active 2018 Sensorine ural hearing loss, bilateral ; Note: Date Diagnosed : 01/25/2019 11:24 AM (H90.3) Not Available [facility] 4 02:39:48 Gastroeso phageal reflux disease without esophagit is 305609785 Active 2023 Gastro-es ophageal reflux disease without esophagit is; Note: Date Diagnosed : 08/25/2023 10:32 AM (K21.9) Not Available [facility] 4 02:39:48 Allergic rhinitis 41155318 Active 2023 Allergic rhinitis, unspecifi ed; Note: Date Diagnosed : 08/01/2023 10:25 AM (J30.9) Not Available [facility] 02:39:50 Nasal congestio n 47116823 Active 2023 Nasal congestio n; Note: Date Diagnosed : 08/01/2023 10:25 AM (R09.81) Not Available [facility] 02:39:53 Problem Notes None recorded. Procedures Surgical History Date Name Laterality Status Provider Name and Address Organization Details Recorded Time 07/30/19 Wax_DP completed WYATT NAVA MD [address] [facility],[address], [address], [facility] 07/30/2024 08:53:51 07/30/19 Air only Audio (08120) completed JENA SALES [facility] [address] [facility],[address], [address], [facility] 07/30/2024 09:17:09 07/30/19 25 Tympanometry (60880) completed JENA SALES [address], [address], [facility] 07/30/2024 09:17:15 Imaging Results None recorded. Procedure Notes None recorded. Medical Equipment None Reported. Allergies No known drug allergies Medications Name Sig Start Date Stop Date Status Note LastModified by Organization Details LastModified Time amoxicill in 500 mg capsule TAKE 1 CAPSULE EVERY 8 HOURS FOR 7 DAYS active Not Available Not Available No t Available atorvasta tin 80 mg tablet 04/27 completed Medicati on ID: [id number] B rand Name: atorvast atin Sen d Method: E-Prescr ibed Sub s Allowed: subs OK Speci al Instruct ion: TOME PRAVEEN TABLETA TODOS LOS D AL ACOSTARS E Medica tionGene ricName: atorvast atin Not Available Not Available Not Available Vitamin C 500 mg tablet active Medicati on ID: [id number] B rand Name: Vitamin C Send Method: E-Prescr ibed Sub s Allowed: subs OK Medic ationGen ericName : Vitamin C Not Available Not Available Not Available atorvasta tin 10 mg tablet TAKE 1 TABLET BY MOUTH EVERY DAY active Not Available Not Available No t Available azithromy mk 250 mg tablet TAKE 2 TABLETS BY MOUTH ON DAY 1, THEN TAKE 1 TABLET DAILY ON DAYS 2-5 active Not Available Not Available No t Available metoprolo l tartrate 100 mg tablet TAKE 1 TABLET BY MOUTH TWICE DAILY active Not Available Not Available No t Available famotidin e 40 mg tablet TAKE 1 TABLET BY MOUTH EVERY EVENING active Not Available Not Available No t Available prednison e 20 mg tablet TAKE 2 TABLETS BY MOUTH EVERY DAY active Not Available Not Available No t Available fexofenad ine 180 mg tablet TAKE 1 TABLET BY MOUTH EVERY DAY NEEDED FOR ALLERGY 04/27 completed Not Available Not Available Not Available omeprazol e 40 mg capsule,d elayed release TAKE 1 CAPSULE BY MOUTH TWICE DAILY BEFORE BREAKFAS T AND BEFORE SUPPER active Not Available Not Available No t Available aspirin 81 mg tablet,de layed release 02/11 completed Medicati on ID: [id number] D uration Value: 90 Brand Name: aspirin Send Method: E-Prescr ibed Sub s Allowed: subs OK Speci al Instruct ion: TOME PRAVEEN TABLETA POR V?A ORAL TODOS LOS D? [facility] Not Available Not Available Not Available tramadol 50 mg tablet active Medicati on ID: [id number] B rand Name: tramadol Send Method: E-Prescr ibed Sub s Allowed: subs OK Medic ationGen ericName : tramadol Not Available Not Available Not Available spironola ctone 25 mg tablet active Medicati on ID: [id number] B rand Name: spironol actone S end Method: E-Prescr ibed Sub s Allowed: subs OK Medic ationGen ericName : spironol actone Not Available Not Available Not Available acetamino phen ER 650 mg tablet,ex tended release TAKE 1 TABLET BY MOUTH EVERY 8 HOURS NEEDED FOR MILD PAIN active Not Available Not Available No t Available methotrex ate sodium 2.5 mg tablet TAKE 4 TABLETS BY MOUTH EVERY WEEK active Not Available Not Available No t Available amitripty line 10 mg tablet TAKE 1/2 TABLET BY MOUTH EVERY DAY AT BEDTIME active Not Available Not Available No t Available baclofen 10 mg tablet active Medicati on ID: [id number] B rand Name: baclofen Send Method: E-Prescr ibed Sub s Allowed: subs OK Speci al Instruct ion: TAKE 1 TABLET BY MOUTH 3 TIMES EVERY DAY NEEDED FOR MUSCLE SPASM/[facility] : [facility]en Not Available Not Available Not Available benzonata te 100 mg capsule TAKE 1 CAPSULE BY MOUTH THREE TIMES DAILY NEEDED FOR COUGH active Not Available Not Available No t Available pantopraz ole 40 mg tablet,de layed release active Medicati on ID: [id number] B rand Name: pantopra zole Sen d Method: E-Prescr ibed Sub s Allowed: subs OK [facility] : pantopra zole Not Available Not Available Not Available ferrous sulfate 325 mg (65 mg iron) tablet 04/27 completed Medicati on ID: [id number] B rand Name: ferrous sulfate Send Method: E-Prescr ibed Sub s Allowed: subs OK Speci al Instruct ion: TOME PRAVEEN TABLETA HA VECES AL D A Medica tionGene ricName: ferrous sulfate Not Available Not Available Not Available triamcino lone acetonide 55 mcg nasal spray aerosol INSTILL 2 SPRAYS IN EACH NOSTRIL ONCE DAILY IN THE MORNING active Not Available Not Available No t Available glucose 4 gram chewable tablet CHEW 2 TO 4 TABLETS BY MOUTH NEEDED FOR LOW BLOOD SUGAR active Not Available Not Available No t Available metoprolo l tartrate 50 mg tablet 02/11 completed Medicati on ID: [id number] D uration Value: 90 Brand Name: metoprol ol tartrate Send Method: E-Prescr ibed Sub s Allowed: subs OK Speci al Instruct ion: TOME PRAVEEN TABLETA HA VECES AL D?A Medi cationGe nericNam e: metoprol ol tartrate Not Available Not Available Not Available folic acid 1 mg tablet TAKE 1 TABLET BY MOUTH EVERY DAY active Not Available Not Available No t Available digoxin 125 mcg (0.125 mg) tablet active Medicati on ID: [id number] B rand Name: digoxin Send Method: E-Prescr ibed Sub s Allowed: subs OK Speci al Instruct ion: TOME PRAVEEN TABLETA TODOS LOS D Medic [facility] ericName : digoxin Not Available Not Available Not Available furosemid e 20 mg tablet TAKE 1 TABLET BY MOUTH EVERY EVENING active Not Available Not Available No t Available gabapenti n 100 mg capsule 02/11 completed Medicati on ID: [id number] B rand Name: gabapent in Send Method: E-Prescr ibed Sub s Allowed: subs OK Medic ationGen ericName : gabapent in Not Available Not Available Not Available Novolog U-100 Insulin aspart 100 unit/mL subcutane ous solution active Medicati on ID: [id number] B rand Name: Novolog U-100 Insulin aspart S end Method: E-Prescr ibed Sub s Allowed: subs OK Speci al Instruct ion: UP TO 100 UNITS VIA INSULIN PUMP SUBCUT DAILY Me dication GenericN norma: Novolog U-100 Insulin aspart Not Available Not Available Not Available nystatin 100,000 unit/gram topical powder 04/27 completed Medicati on ID: [id number] B rand Name: nystatin Send Method: E-Prescr ibed Sub s Allowed: subs OK Speci al Instruct ion: APLIQUE AL LIAT AFECTADA DOS VECES AL D A Medica tionGene ricName: nystatin Not Available Not Available Not Available albuterol sulfate HFA 90 mcg/actua tion aerosol inhaler 02/11 completed Medicati on ID: [id number] B rand Name: albutero l sulfate Send Method: E-Prescr ibed Sub s Allowed: subs OK Speci al Instruct ion: TOME DOS INHALACI ONES POR V A ORAL CADA CUATRO A SEIS HORAS CUANDO SEA NECESARI O Medica tionGene ricName: albutero l sulfate Not Available Not Available Not Available fluticaso ne propionat e 50 mcg/actua tion nasal spray,lalo pension active Medicati on ID: [id number] B rand Name: fluticas one propiona te Send Method: E-Prescr ibed Sub s Allowed: subs OK Speci al Instruct ion: USE 2 SPRAYS IN EACH NOSTRIL ONCE A DAY NEEDED M edicatio nGeneric Name: fluticas one propiona te Not Available Not Available Not Available clotrimaz ole 1 % topical cream APPLY TOPICALL Y TWICE DAILY active Not Available Not Available No t Available amoxicill in 875 mg-potass ium clavulana te 125 mg tablet TAKE 1 TABLET BY MOUTH TWICE DAILY 04/27 completed Not Available Not Available Not Available valsartan 40 mg tablet active Medicati on ID: [id number] B rand Name: valsarta n Send Method: E-Prescr ibed Sub s Allowed: subs OK Speci al Instruct ion: NICOLE PRAVEEN TABLETA TODOS LOS D Medic ationGen ericName : valsarta n Not Available Not Available Not Available Novolog FlexPen U-100 Insulin aspart 100 unit/mL (3 mL) subcutane ous INJECT 3-6 UNITS SUBCUTAN EOUSLY THREE TIMES DAILY active Not Available Not Available No t Available Senna Plus 8.6 mg-50 mg tablet active Medicati on ID: [id number] B rand Name: Senna Plus Sen d Method: E-Prescr ibed Sub s Allowed: subs OK Medic ationGen ericName : Senna Plus Not Available Not Available Not Available FreeStyle Lite Strips USE DIRECTED TO TEST BLOOD SUGAR FOUR TIMES DAILY active Not Available Not Available No t Available Lantus Solostar U-100 Insulin 100 unit/mL (3 mL) subcutane ous pen INJECT 25 UNITS SUBCUTAN EOUSLY TWICE DAILY active Not Available Not Available No t Available diclofena c 1 % topical gel APPLY 4 GRAMS TO AFFECTED AREA(S) TOPICALL Y TWICE DAILY active Not Available Not Available No t Available melatonin 5 mg tablet TAKE 1 TO 2 TABLETS BY MOUTH AT BEDTIME NEEDED FOR SLEEP active Not Available Not Available No t Available Vitamin D3 50 mcg (2,000 unit) capsule TAKE 1 CAPSULE BY MOUTH EVERY DAY active Not Available Not Available No t Available Eliquis 5 mg tablet TAKE 1 TABLET BY MOUTH TWICE DAILY active Not Available Not Available No t Available Breo Ellipta 200 mcg-25 mcg/dose powder for inhalatio n INHALE 1 PUFF BY MOUTH EVERY DAY AT THE SAME TIME RINSE MOUTH AFTER USING active Not Available Not Available No t Available Entresto 49 mg-51 mg tablet TAKE 1 TABLET BY MOUTH TWICE DAILY active Not Available Not Available No t Available Pentips Pen Needle 32 gauge x USE DIRECTED FOUR TIMES DAILY active Not Available Not Available No t Available Tresiba FlexTouch U-200 insulin 200 unit/mL (3 mL) subcutane ous pen INJECT 22 UNITS SUBCUTAN EOUSLY EVERY DAY active Not Available Not Available No t Available Narcan 4 mg/actuat ion nasal spray active Medicati on ID: [id number] B rand Name: Narcan S end Method: E-Prescr ibed Sub s Allowed: subs OK Speci al Instruct ion: SPRAY 0.1 ML IN 1 NOSTRIL MAY REPEAT DOSE EVERY 2 3 MINS NEEDED ALTERNAT ING NOSTRILS W/ EACH DOSE Med icationG enericNa me: Narcan Not Available Not Available Not Available Ozempic 0.25 mg or 0.5 mg (2 mg/1.5 mL) subcutane ous pen injector 02/11 completed Medicati on ID: [id number] D uration Value: 30 Brand Name: Ozempic Send Method: E-Prescr ibed Sub s Allowed: subs OK Medic ationGen ericName : Ozempic Not Available Not Available Not Available Baqsimi 3 mg/actuat ion nasal spray USE 1 SPRAY (3MG) IN ONE NOSTRIL FOR A PATIENT WITH SEVERE HYPOGLYC EMIA WHO IS NOT RESPONSI VE AND UNABLE SELF-ZAINAB AT WITH GLUCOSE. AFTERWAR DS TURN ON SIDE. MAY REPEAT IN 15MINUTE S IF PATIENT DOES NOT RESPOND. 04/27 completed Not Available Not Available Not Available Dexcom G7 Mapping Supervisor USE DIRECTED active Not Available Not Available No t Available Dexcom G7 Sensor device USE DIRECTED TO TEST BLOOD SUGAR, CHANGE EVERY 10 DAYS active Not Available Not Available No t Available glucose 3.75 gram chewable tablet CHEW 2 TO 4 TABLETS BY MOUTH NEEDED FOR LOW BLOOD SUGAR active Not Available Not Available No t Available Vitals Date Recorded Body height Body mass index (BMI) Body weight Provider Name and Address Organization Details Last Updated DateTime 07/30/2024 149.86 cm 26.7 kg/m2 82633.19 g Nash Hammond [place] - [facility] 07/30/2024 08:41:37 Social History None recorded. Functional Status None recorded. Mental Status None recorded. Family History Nothing Reported. Medical History Condition Response Diabetes Y Gynecological HistoryNo gynecological history recorded. Obstetrics History GPAL:G 0 P 0 0 0 0 Past Encounters Encounter ID Performer Location Encounter Start Date Encounter Closed Date Diagnosis/Indication Diagnosis SNOMED-CT Code Diagnosis ICD10 Code Diagnosis Note [id number] WYATT NAVA MD [facility] [address] [place] [address] 07/30/2024 08:36:37 07/30/2024 09:43:52 Sensorineural hearing loss of bilateral ears [id number] H90.3 Audiologic al evaluation results: Right ear: {{Normal N ormal through 2 kHz Mild* Moderate M oderately- severe Sev ere Profou nd}} {{hearing sloping to a mild slopi ng to a moderate s loping to moderately severe slo ping to severe* sl oping to profound f lat high frequency low frequency mid frequency cookie bite rosas curve}} {{with sen sorineural hearing loss with condu ctive hearing loss with mixed hearing loss with senso rineural hearing loss #}} Left ear: {{Normal N ormal through 2 kHz Mild* Moderate M oderately- severe Sev ere Profou nd}} {{hearing sloping to a mild slopi ng to a moderate s loping to moderately severe slo ping to severe* sl oping to profound f lat high frequency low frequency mid frequency cookie bite rosas curve}} {{with sen sorineural hearing loss with condu ctive hearing loss with mixed hearing loss with senso rineural hearing loss#}} Tympanomet ry: Right Ear:{{Type A Type As* Type Ad Type C Type C, shallow & rounded Ty pe B Type B with large volume Cou ld not maintain a hermetic seal}} Left Ear:{{Type A Type As* Type Ad Type C Type C, shallow & rounded Ty pe B Type B with large volume Cou ld not maintain a hermetic seal}} Impacted c erumen of bilateral ears [id number] 830371 H61.23 Ears were meticulous ly cleaned bilaterall y today with fine pics, curettes and/or suction. Patient is encouraged to avoid Q-tips in their ears relative to packing the wax in tighter. They may use the corner of their bath towel to gently clean the nooks and crannies of the external ears as needed. Yearly visits or as needed are recommende d. Health Concerns Section Related Observation LastModified by Organization Detai ls LastModified Time None Recorded Concern Status LastModified by Organization Details LastModified Time None Recorded Payers Encounter Date Sequence Insurance Name Policy Number Policy Ivy Covered Member ID Ivy Member ID Guarantor Name 07/30/2024 1 [facility] - DOS ON OR AFTER 2022 - NURSING HOME OPTIONS (MEDICARE REPLACEMENT/ADV ANTAGE - HMO) Candi Sanchez [id number] Candi Sanchez Notes Date Note Type Note Provider Name and Address Organization Details Recorded Time 07/30/2024 text/html IPad - Spanishhearing lossdid not pursue hearing aids in past year 08/01/23 Dr Kern audiomild sloping to severe B SNHLcleared for B HAE PV 04/27/24 Iris - cough - improved with meds from [facility] NAVA MD [address] [place] [address], [address], [place] - [facility] 07/30/2024 09:42:27 OBGyn Episode No OBEpisode recorded.
--- OUTSIDE RECORDS SUMMARY | 2024-07-30 11:15 | XMS_ITS | Data Portability ---
Author Organization [employer] [place] in [employer] Address [address] [place] [address] Assessment Encounter Date Assessment Date Assessment LastModified by Organization Details LastModified Time 03/17/2023 03/17/2023 As noted, we were called to see this patient regarding concerns of cough. Evaluation in the field was performed by my inspection machine tender colleague, as noted above, I provided real-time direction and supervision for this visit. The evaluation revealed 72y F with prolonged upper respiratory sxs with pharyngitis, dry cough, rhinorrhea. No exam findings to suggest sinus infection, pneumonia, asthma. Presence of congestion and rhinorrhea w cough suggests against bacterial pharyngitis. Rapid strep, COVID, flu all neg. Rec optimizing acetaminophen, tea w honey, f/u w PCPs office for an appt. Impression: viral URI w prolonged course Plan: supportive care. Primary care, consider working in for urgent appt given duration of symptoms Disposition: We discussed the diagnostic uncertainty of home visits and the risk associated with this. In this case, the patient and I felt this to be an acceptable and reasonable amount of risk given the benefit of avoiding an ED visit. We discussed the need to seek care urgently/emerge ntly in the setting of any new or worsening serious symptoms, particularly fever, shortness of breath, dizziness, difficulty taking PO atilhou Not available 03/17/2023 19:55:41 Plan of Treatment Reminders Order Date Submit Date Provider Last Modified By Organization Details Last Modified Time Details Appointments None record ed. Lab None record ed. Referral None record ed. Procedures None record ed. Surgeries None record ed. Imaging None record ed. Medication Orders None record ed. Patient TargetsNo targets recorded. Patient InstructionsNo instructions recorded. Reason for Referral None Reported. Medical Equipment None Reported. Medications Name Sig Start Date Stop Date Status Note LastModified by Organization Details LastModified Time furosemide 40 mg tablet TAKE 1 TABLET BY MOUTH ONCE DAILY active Not Available Not Available No t Available cetirizine 10 mg tablet TAKE 1 TABLET BY MOUTH EVERY DAY active Not Available Not Available No t Available atorvastatin 10 mg tablet TAKE 1 TABLET BY MOUTH EVERY DAY active Not Available Not Available No t Available metoprolol tartrate 100 mg tablet TAKE 1 TABLET BY MOUTH TWICE DAILY WITH FOOD active Not Available Not Available No t Available Nystop 100,000 unit/gram topical powder APPLY TO THE AFFECTED AREA(S) TOPICALLY TWICE DAILY active Not Available Not Available Not Available omeprazole 40 mg capsule,moiz yed release TAKE 1 CAPSULE BY MOUTH TWICE DAILY active Not Available Not Available No t Available tramadol 50 mg tablet TAKE 1 TABLET BY MOUTH EVERY TWELVE HOURS NEEDED FOR SEVERE PAIN active Not Available Not Available Not Available spironolacto ne 25 mg tablet TAKE 1 TABLET BY MOUTH EVERY DAY active Not Available Not Available No t Available methotrexate sodium 2.5 mg tablet TAKE 8 TABLETS BY MOUTH ONCE A WEEK active Not Available Not Available No t Available benzonatate 100 mg capsule TAKE 1 CAPSULE BY MOUTH THREE TIMES DAILY NEEDED FOR COUGH active Not Available Not Available No t Available glucose 4 gram chewable tablet CHEW 2 TO 4 TABLETS BY MOUTH NEEDED FOR LOW BLOOD SUGAR active Not Available Not Available No t Available digoxin 125 mcg (0.125 mg) tablet TAKE 1 TABLET BY MOUTH EVERY DAY active Not Available Not Available No t Available furosemide 20 mg tablet TAKE 1 TABLET BY MOUTH EVERY EVENING active Not Available Not Available No t Available gabapentin 100 mg capsule TAKE 2 CAPSULES BY MOUTH EVERY EVENING active Not Available Not Available No t Available Novolog U-100 Insulin aspart 100 unit/mL subcutaneous solution INJECT UP TO 100 UNITS SUBCUTANEOU SLY BY INSULIN PUMP EVERY DAY active Not Available Not Available No t Available fluticasone propionate 50 mcg/actuatio n nasal spray,suspen masoud USE 2 SPRAYS IN EACH NOSTRIL EVERY DAY active Not Available Not Available No t Available clotrimazole 1 % topical cream APPLY TO THE AFFECTED AREA(S) AND SURROUNDING AREA(S) TOPICALLY TWICE DAILY IN THE MORNING AND IN THE EVENING active Not Available Not Available No t Available Novolog FlexPen U-100 Insulin aspart 100 unit/mL (3 mL) subcutaneous INJECT 3-6 UNITS SUBCUTANEOU SLY THREE TIMES DAILY active Not Available Not Available Not Available Flovent HFA 220 mcg/actuatio n aerosol inhaler INHALE 1 PUFF BY MOUTH TWICE DAILY. ADMINISTER WITH SPACER. RINSE MOUTH AFTER USING. active Not Available Not Available No t Available UltiCare Pen Needle 31 gauge x 5/16 USE DIRECTED FOUR TIMES DAILY active Not Available Not Available No t Available FreeStyle Lite Strips USE DIRECTED TO TEST BLOOD SUGAR FOUR TIMES DAILY active Not Available Not Available Not Available FeroSul 325 mg (65 mg iron) tablet TAKE 1 TABLET BY MOUTH DAILY active Not Available Not Available Not Available Lantus Solostar U-100 Insulin 100 unit/mL (3 mL) subcutaneous pen INJECT 25 UNITS SUBCUTANEOU SLY TWICE DAILY active Not Available Not Available No t Available diclofenac 1 % topical gel APPLY 2-4 GRAMS TO AFFECTED AREA(S) UP TO FOUR TIMES DAILY DIRECTED FOR JOINT PAIN active Not Available Not Available No t Available Minerin Creme topical APPLY TO DRY SKIN 2 TO 3 TIMES PER DAY active Not Available Not Available No t Available BD Ultra-Fine Thania Pen Needle 32 gauge x 5/32 USE DIRECTED FOUR TIMES DAILY active Not Available Not Available No t Available TRUEplus Lancets 33 gauge TEST BLOOD SUGAR THREE OR FOUR TIMES DAILY active Not Available Not Available Not Available Eliquis 5 mg tablet TAKE 1 TABLET BY MOUTH TWICE DAILY active Not Available Not Available No t Available Entresto 49 mg-51 mg tablet TAKE 1 TABLET BY MOUTH TWICE DAILY active Not Available Not Available No t Available naloxone 4 mg/actuation nasal spray FOR SUSPECTED OPIOID OVERDOSE. SPRAY 0.1mL IN ONE NOSTRIL. REPEAT IN ALTERNATE NOSTRIL 2-3 MINUTES IF NEEDED. SEEK MEDICAL ATTENTION IMMEDIATELY EVEN IF PATIENT RESPONDS. active Not Available Not Available No t Available Compact Space Chamber USE DIRECTED active Not Available Not Available No t Available TRUEplus Glucose 3.75 gram chewable tablet CHEW 2 TO 4 TABLETS NEEDED FOR LOW BLOOD SUGAR active Not Available Not Available No t Available Vitals Date Recorded Heart rate Oxygen saturation Oxygen saturation in Arterial blood by Pulse oximetry Respiratory rate Body temperature Systolic blood pressure Diastolic blood pressure Provider Name and Address Organization Details Last Updated DateTime 3 92 /min 97 % 97 % 16 /min 98.1 [degF] 149 mm[Hg] 88 mm[Hg] Not Available [employer] - production 3 19:40:55 Social History None recorded. Functional Status None recorded. Mental Status None recorded. Family History Nothing Reported. Medical History No medical history recorded. Gynecological HistoryNo gynecological history recorded. Obstetrics History GPAL:G 0 P 0 0 0 0 Past Encounters Encounter ID Performer Location Encounter Start Date Encounter Closed Date Diagnosis/Indication Diagnosis SNOMED-CT Code Diagnosis ICD10 Code Diagnosis Note [id number] Amparo Marley MD Main - [address] [address] 03/17/2023 19:40:50 03/17/2023 19:55:52 Health Concerns Section Related Observation LastModified by Organization Detai ls LastModified Time None Recorded Concern Status LastModified by Organization Details LastModified Time None Recorded Advance Directives Directive None Recorded Payers Encounter Date Sequence Insurance Name Policy Number Policy Ivy Covered Member ID Ivy Member ID Guarantor Name 03/17/2023 1 [facility] - DOS ON OR AFTER 2022 - DUAL ELIGIBLE - [employer] OPTIONS AND [employer] (MEDICARE REPLACEMENT/ADV ANTAGE - HMO) Candi Sanchez [id number] Candi Sanchez Notes Date Note Type Note Provider Name and Address Organization Details Recorded Time 03/17/2023 text/html HPI: Aflutter, cardiomyopathy,GERD , Defib present. Patietn with significant sore throat. Able to drink fluids and no fever. Severe cough non productive at present. Had some relief from Tessalon Perles previously but no longer helping. ................... ................... ................... ................... ................... ................... ................... ........ CRC Nursing Assessment: Comments: CRC RN DID NOT NEED FURTHER INFO [facility] HPI: 3 weeks, sore throat throughout, cough throughout. dry cough. has never had something like this before. some sour taste, depending on what she ate. no abdominal, a little epigastric burning. Saw provider, got tessalon perles, initially helpful but then. 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 Amparo Marley MD [address] [facility],[address], [place], [address], [employer] 03/17/2023 19:55:51 OBGyn Episode No OBEpisode recorded.
--- OUTSIDE RECORDS SUMMARY | 2024-07-30 11:15 | XMS_ITS | Encounter Summary ---
Author Organization [facility] Address [address] [place] [address] [address] [place] [address] Care Team Providers Care Implementation Engineer Name Role Phone Gavi Aldana DO Primary Care Provider + [phone] Encounter Details Date Type Department Care Team (Late st Contact Info) Description 12/14/2022 Orders Only [facility] MED & PEDS [address] [place] [address] Gavi Duarte LPN Social History Tobacco Use [...] Description 08/28/2024 9:00 AM EDT Office Visit [facility] ADULT DENTAL [address] [place] [address] José Miguel Sy DDS [address] [place] [address] documented as of this encounter Visit Diagnoses Not on filedocumented in this encounter Care Teams Implementation Engineer Relationship Specialty Start Date End Date Gavi Aldana DO [address] [place] [address] PCP - General Family Medicine 06/06/18 documented as of this encounter
--- OUTSIDE RECORDS SUMMARY | 2024-07-30 11:15 | XMS_ITS | Data Portability ---
Author Organization [place] [facility], All[facility] Address [address] [facility] [address] [place] [address] Care Team Providers Care Certified Nurse Operating Room Name Role Phone SAFIAMARTINEZ HOLLINS Primary Care Provider [phone] Assessment Encounter Date Assessment Date Assessment LastModified by Organization Details LastModified Time 04/27/2024 04/27/2024 Patient feels her cough has improved significantly with medication from her pulmonary team. She also feels her reflux is better managed. At the end of the visit she asked to have her hearing evaluated. Her most recent hearing test with us was January 2019 showing bilateral high-frequency sensorineural hearing loss. She has no cerumen blocking her ear canals today. Will make arrangements for audiometric testing at a future visit [email or web address] Not available 04/27/2024 10:06:01 07/30/2024 07/30/2024 Patient's audiogram shows bilateral severe sensorineural hearing loss with well maintained speech discrimination. There is enough hearing loss to affect day-to-day hearing performance. We discussed in detail the pros and cons of amplification (hearing aids). Patient would like to learn more about this option so I have provided a copy of the audiogram, a list of [facility] hearing aid providers, and medical clearance for [...] Organization Details Recorded Time Dizziness and giddiness 069030605 Active 2018 Dizziness and giddiness ; Note: Date Diagnosed : 01/25/2019 11:02 AM (R42) Not Available [facility] 4 02:39:47 Impacted cerumen of bilateral ears [id number] 64617 Active 2018 Impacted cerumen, bilateral ; Note: Date Diagnosed : 01/25/2019 11:05 AM (H61.23) Not Available [facility] 4 02:39:43 Bilateral tinnitus 38984111267 02 Active 2018 Tinnitus, bilateral ; Note: Date Diagnosed : 01/25/2019 11:24 AM (H93.13) Not Available [facility] 4 02:39:43 Cough 21098644 Active 2020 Cough, unspecifi ed; Note: Changed from R05 to R05.9 ( 4 9:23 AM) , Date Diagnosed : 02/11/2021 10:17 AM (R05) WYATT NAVA MD [address] [place] [address], [place], [address] [facility] 4 10:02:57 Benign paroxysma l positiona l vertigo 687604456 Active 2018 Benign paroxysma l vertigo, unspecifi ed ear; Note: Date Diagnosed : 01/25/2019 11:03 AM (H81.10) Not Available [facility] 4 02:39:53 Sensorine ural hearing loss of bilateral ears 334473562 Active 2018 Sensorine ural hearing loss, bilateral ; Note: Date Diagnosed : 01/25/2019 11:24 AM (H90.3) Not Available [facility] 4 02:39:48 Gastroeso phageal reflux disease without esophagit is 000157955 Active 2023 Gastro-es ophageal reflux disease without esophagit is; Note: Date Diagnosed : 08/25/2023 10:32 AM (K21.9) Not Available [facility] 4 02:39:48 Allergic rhinitis 26144958 Active 2023 Allergic rhinitis, unspecifi ed; Note: Date Diagnosed : 08/01/2023 10:25 AM (J30.9) Not Available [facility] 4 02:39:50 Nasal congestio n 26009606 Active 2023 Nasal congestio n; Note: Date Diagnosed : 08/01/2023 10:25 AM (R09.81) Not Available [facility] 02:39:53 Problem Notes None recorded. Procedures Surgical History Date Name Laterality Status Provider Name and Address Organization Details Recorded Time 07/30/19 25 Wax_DP completed WYATT NAVA MD [address] [facility],[address], [address], [place] - [facility] 07/30/2024 08:53:51 07/30/19 25 Air only Audio (75664) completed Nupur DIOP [address] [facility],[address], [address], [place] - [facility] 07/30/2024 09:17:09 07/30/19 25 Tympanometry (75689) completed Nupur DIOP [address] [facility],[address], [address], [facility] - [facility] 07/30/2024 09:17:15 Imaging Results Imaging Date Name Status LastModified by Organiz ation Details LastModified Time 07/30/2024 audiogram completed BARCODE Information no t available 07/30/2024 10:12:10 Procedure Notes None recorded. Medical Equipment None Reported. Allergies No known drug allergies Medications Name Sig Start Date Stop Date Status Note LastModified by Organization Details LastModified Time amoxicill in 500 mg capsule TAKE 1 CAPSULE EVERY 8 HOURS FOR 7 DAYS active Not Available Not Available No t Available atorvasta tin 80 mg tablet 04/27 completed Medicati on ID: [id number] B rand Name: atorvast atin Sen d Method: E-Prescr ibed Sub s Allowed: subs OK Speci al Instruct ion: TOME PRAVEEN TABLETA TODOS LOS D AL ACOSTARS E Medica tionGene ricName: atorvast atin Not Available Not Available Not Available Vitamin C 500 mg tablet active Medicati on ID: [id number] B rand Name: Vitamin C Send Method: [...] layed release 02/11 completed Medicati on ID: [id number] D uration Value: 90 Brand Name: aspirin Send Method: E-Prescr ibed Sub s Allowed: subs OK Speci al Instruct ion: TOME PRAVEEN TABLETA POR V?A ORAL TODOS LOS D? Med icationG enericNa me: aspirin Not Available Not Available Not Available tramadol 50 mg tablet active Medicati on ID: [id number] B rand Name: tramadol Send Method: E-Prescr ibed Sub s Allowed: subs OK Medic ationGen ericName : tramadol Not Available Not Available Not Available spironola ctone 25 mg tablet active Medicati on ID: [id number] B rand Name: spironol actone S end Method: E-Prescr ibed Sub s Allowed: subs OK [facility] ericName : spironol actone Not Available Not [...] 10 mg tablet active Medicati on ID: [id number] B rand Name: baclofen Send Method: E-Prescr ibed Sub s Allowed: subs OK Speci al Instruct ion: TAKE 1 TABLET BY MOUTH 3 TIMES EVERY DAY NEEDED FOR MUSCLE SPASM/PA IN [facility] ericName : baclofen Not Available Not Available Not Available benzonata te 100 mg capsule TAKE 1 CAPSULE BY MOUTH THREE TIMES DAILY NEEDED FOR COUGH active Not Available Not Available No t Available pantopraz ole 40 mg tablet,de layed release active Medicati on ID: [id number] B rand Name: pantopra zole Sen d Method: E-Prescr ibed Sub s Allowed: subs OK [facility] ericName : pantopra zole Not Available Not Available Not Available ferrous sulfate 325 mg (65 mg iron) tablet 04/27 completed Medicati on ID: [id number] B rand Name: ferrous sulfate Send Method: [...] mg tablet 02/11 completed Medicati on ID: [id number] D uration Value: 90 Brand Name: metoprol [...] (0.125 mg) tablet active Medicati on ID: [id number] B rand Name: digoxin Send Method: E-Prescr ibed Sub s Allowed: subs OK Speci al Instruct ion: TOME PRAVEEN TABLETA TODOS LOS D Medic ationGen ericName : digoxin Not Available Not Available Not Available furosemid e 20 mg tablet TAKE 1 TABLET BY MOUTH EVERY EVENING active Not Available Not Available No t Available gabapenti n 100 mg capsule 02/11 completed Medicati on ID: [id number] B rand Name: gabapent in Send Method: E-Prescr ibed Sub s Allowed: subs OK Medic ationGen ericName : gabapent in Not Available Not Available Not Available Novolog U-100 Insulin aspart 100 unit/mL subcutane ous solution active Medicati on ID: [id number] B rand Name: Novolog U-100 Insulin aspart S end Method: E-Prescr ibed Sub s Allowed: subs OK Speci al Instruct ion: UP TO 100 UNITS VIA INSULIN PUMP SUBCUT DAILY Me dication GenericN norma: Novolog U-100 Insulin aspart Not Available Not Available Not Available nystatin 100,000 unit/gram topical powder 04/27 completed Medicati on ID: [id number] B rand Name: nystatin Send Method: E-Prescr ibed Sub s Allowed: subs OK Speci al Instruct ion: APLIQUE AL LIAT AFECTADA DOS VECES AL D A Medica tionGene ricName: nystatin Not Available Not Available Not Available albuterol sulfate HFA 90 mcg/actua tion aerosol inhaler 02/11 completed Medicati on ID: [id number] B rand Name: albutero l sulfate Send Method: E-Prescr ibed Sub s Allowed: subs OK Speci al Instruct ion: TOME DOS INHALACI ONES POR V A ORAL CADA CUATRO A SEIS HORAS CUANDO SEA NECESARI O Medica tionGene ricName: albutero l sulfate Not Available Not Available Not Available fluticaso ne propionat e 50 mcg/actua tion nasal spray,lalo pension active Medicati on ID: [id number] B rand Name: fluticas one propiona te Send Method: E-Prescr ibed Sub s Allowed: subs OK Speci al Instruct ion: USE 2 SPRAYS IN EACH NOSTRIL ONCE A DAY NEEDED M edlaztio nGeneric Name: fluticas one propiona te Not [...] 40 mg tablet active Medicati on ID: [id number] B rand Name: valsarta n Send Method: E-Prescr ibed Sub s Allowed: subs OK Speci al Instruct ion: TOME PRAVEEN TABLETA TODOS LOS D Medic ationGen ericName : valsarta n Not Available Not Available Not Available Novolog FlexPen U-100 Insulin aspart 100 unit/mL (3 mL) subcutane ous INJECT 3-6 UNITS SUBCUTAN EOUSLY THREE TIMES DAILY active Not Available Not Available No t Available Senna Plus 8.6 mg-50 mg tablet active Medicati on ID: [id number] B rand Name: Senna Plus Sen d [...] Available Pentips Pen Needle 32 gauge x 5/32 USE DIRECTED FOUR TIMES DAILY active Not Available Not Available No t Available Tresiba FlexTouch U-200 insulin 200 unit/mL (3 mL) subcutane ous pen INJECT 22 UNITS SUBCUTAN EOUSLY EVERY DAY active Not Available Not Available No t Available Narcan 4 mg/actuat ion nasal spray active Medicati on ID: [id number] B rand Name: Narcan S end Method: [...] pen injector 02/11 completed Medicati on ID: [id number] D uration Value: 30 Brand Name: Ozempic [...] Available Not Available Not Available Dexcom G7 Food And Drug Research Scientist USE DIRECTED active Not Available Not Available [...] and Address Organization Details Last Updated DateTime 04/27/2024 149.86 cm 26.7 kg/m2 95281.19 g Susy Vera [facility] 04/27/2024 09:48:20 Date Recorded Body height Body mass index (BMI) Body weight Provider Name and Address Organization Details Last Updated DateTime 07/30/2024 149.86 cm 26.7 kg/m2 12568.19 g Nash Hammond [facility] 07/30/2024 08:41:37 Social History None recorded. Functional Status None recorded. Mental Status None recorded. Family History Nothing Reported. Medical History Condition Response Diabetes Y Gynecological HistoryNo gynecological history recorded. Obstetrics History GPAL:G 0 P 0 0 0 0 Past Encounters Encounter ID Performer Location Encounter Start Date Encounter Closed Date Diagnosis/Indication Diagnosis SNOMED-CT Code Diagnosis ICD10 Code Diagnosis Note [id number] WYATT NAVA MD [facility] [address] [address] 04/27/2024 09:29:27 04/27/2024 10:08:17 Cough 00603857 R05.9 Sensorineu ral hearing loss of bilateral ears 699919871 H90.3 [id number] WYATT NAVA MD [facility] [address] [address] 07/30/2024 08:36:37 07/30/2024 09:43:52 Sensorineural hearing loss of bilateral ears 734252268 H90.3 Audiologic al evaluation results: Right ear: [...] seal}} Impacted c erumen of bilateral ears [id number] 413186 H61.23 Ears were meticulous ly cleaned bilaterall [...] Member ID Ivy Member ID Guarantor Name 04/27/2024 2 [employer] - [facility] [place] ([place]IC[place]PLAC[place]/ADV ANTAGE - HMO) Candi Sanchez [id number] Candi Sanchez 07/30/2024 1 [facility] - DOS ON OR AFTER 2022 - NURSING HOME OPTIONS (MEDICARE REPLACEMENT/ADV ANTAGE - HMO) Candi Sanchez [id number] Candi Sanchez Notes Date Note Type Note Provider Name and Address Organization Details Recorded Time 04/27/2024 text/html ipad - spanishcoughuses some pills from her pulmonologistnow barely has a coughalso feels stomach acid is minimally present.reports some dry mouth - doesnt drink much water during day PV 08/25/23 Iris, dry cough onset 06/2023. reflux daily. FOL - normal. EGD May 2023 with 'bacteria in stomach' took 2 pills. Rx famotidine WAYTT NAVA MD [address] [facility],[place] [address], [place], [address], [place] - [facility] 04/27/2024 10:06:17 07/30/2024 text/html IPad - Spanishhe aring lossdid not pursue hearing aids in past year 08/01/23 Dr Kern audiomild sloping to severe B SNHLcleared for B HAE PV 04/27/24 Iris - cough - improved with meds from pulm WYATT NAVA MD [address] [facility], [place], [address], [facility] - [facility] 07/30/2024 09:42:27 OBGyn Episode No OBEpisode recorded.
--- OUTSIDE RECORDS SUMMARY | 2024-07-30 11:15 | XMS_ITS | Encounter Summary ---
Author Organization [employer] Address [address] [facility] [address] [place] [address] Care Team Providers Care Soil Conservation Technician Name Role Phone Gavi Aldana DO Primary Care Provider + [phone] Encounter Details Date Type Department Care Team ([facility] st Contact Info) Description 07/17/2024 Orders Only GENERIC EXTERNAL DATA DEPARTMENT Provider, Generic External Data Social History Tobacco Use Types Packs/Day Years [...] Description 08/28/2024 9:00 AM EDT Office Visit [facility] ADULT DENTAL [address] [place], [place] [phone] José Miguel Sy DDS [address] [place], [place] [phone] documented as of this encounter Procedures Procedure Name Priority Date/Time Associated Diagnosis Comments GLUCOSE, WHOLE BLOOD Routine 07/17/2024 9:33 AM EST documented in this encounter Results * (ABNORMAL) Glucose, Whole Blood (07/17/2024 9:33 AM EST) Glucose, Whole Blood 287(H) 60 - 115 mg/dL [facility] Comment:METER #: [id number] 5Testing performed in the Endocrinology Department [address] , [address], [facility]. 07/17/2024 9:33 AM EST 07/17/2024 9:38 AM EST us Generic External Data Provider LAB BLOOD ORDERAB LES Final Result [facility] [address] [place] [address] [phone] documented in this encounter Visit Diagnoses Not on filedocumented in this encounter Additional Health Concerns Assessment Noted Time PHQ-9 Depression Total Score: 1 06/15/19 24 10:29 AM EST documented as of this encounter Care Teams Soil Conservation Technician Relationship Specialty Start Date End Date Gavi Aldana DO [address] [place] [address] PCP - General Family Medicine 06/06/18 documented as of this encounter
--- OUTSIDE RECORDS SUMMARY | 2024-07-30 11:15 | XMS_ITS | Encounter Summary ---
Author Organization [employer] Address [address] [facility] 7[address] [place] [address] Care Team Providers Care Director Group Sales Name Role Phone Gavi Aldana DO Primary Care Provider + [phone] Reason for Visit * Reason Comments Extraction #14 Encounter Details Date Type Department Care Team ([facility] st Contact Info) Description 07/11/2024 8:00 AM EST Office Visit [facility] ADULT DENTAL [address] [place] [address] José Miguel Sy DDS [address] [place] [address] Dental caries into pulp (Primary Dx) Social History Tobacco Use Types Packs/Day Years [...] Sign Reading Time Taken Comments Blood Pressure 128/80 07/11/2024 8:02 AM EST Pulse - - Temperature - - Respiratory Rate - - Oxygen Saturation - - Inhaled Oxygen Concentration - - Weight - - Height - - Body Mass Index - - documented in this encounter Progress Notes * José Miguel Sy DDS - 07/11/2024 8:00 AM EST Patient ID: Candi Sanchez is a 73 y.o. female. Time Out: Timeout Date: 07/11/24, Timeout Time: 0800 (extraction on #14, pt did pre-med for today extraction) Location: [facility] Tooth: Maxilla and #14 Procedure: Extraction Verified the above with patient, regional administrative assistant, and provider. Confirmed via patient's chart, intraorally and by radiographs. Special Education Case Manager: not applicable Chief Complaint Patient presents with Extraction #14 Medical Hx: Vitals: Blood pressure 128/80. Past Medical History: Diagnosis Date Anxiety Arthritis Diabetes mellitus (CMS/HCC) GERD (gastroesophageal reflux disease) High cholesterol Hx of half-way use of blood thinners Taking Eliquis for 3 years, Hypertension Pacemaker Pt states it was placed 10 years ago and they changed the battery on pacemaker last year. Medications: Outpatient Encounter Medications as of 07/11/2024 Medication Sig Dispense Refill acetaminophen (Tylenol 8 Hour) 650 MG ER tablet TAKE 1 TABLET BY MOUTH EVERY 8 HOURS NEEDED FOR MILD PAIN 30 tablet 0 amitriptyline (Elavil) 10 MG tablet Take 0.5 tablets (5 mg) by mouth at bedtime. 15 tablet 3 amoxicillin (Amoxil) 500 MG capsule Take 1 capsule (500 mg) by mouth every 8 (eight) hours for 7 days. 21 capsule 0 atorvastatin (Lipitor) 10 MG tablet Take 10 [...] 3-6 UNITS SUBCUTANEOUSLY THREE TIMES DAILY Nystop 214205 UNIT/GM powder APPLY TO THE AFFECTED AREA(S) [...] OR FOUR TIMES DAILY UltiCare Short Pen Vivian 31G X 8 MM misc USE DIRECTED FOUR TIMES DAILY No facility-administered encounter medications on file as of 07/11/2024. Consent Obtained: The risks, benefits, indications, potential complications, and alternatives were explained to the patient and informed consent was obtained with good understanding. Treatment Provided: Dental procedures in this visit D7210 - EXTRACTION, ERUPTED TOOTH REQUIRING REMOVAL OF BONE AND/OR SECTIONING OF TOOTH, AND INCLUDING ELEVATION OF MUCOPERIOSTEAL FLAP IF INDICATED 14 (Completed) Service provider: José Miguel Sy DDS Billing provider: José Miguel Sy DDS D9450 - ADJUNCTIVE GENERAL SERVICES - PROFESSIONAL VISITS - CASE PRESENTATION, SUBSEQUENT TO DETAILED AND EXTENSIVE TREATMENT PLANNING (Completed) Service provider: José Miguel Sy DDS Billing provider: José Miguel Sy DDS Diagnosis: Root caries Topical: 20% Benzocaine Anesthesia: 2% Lidocaine (Xylocaine) w/ 1:100,000 epinephrine Number of Cartridges: 1 Injection Type: Buccal infiltration, Palatal infiltration, and Intrapapillary injection Confirmed profound anesthesia. Pharyngeal curtain and bite block placed. Removed tooth with elevators and forceps. Apices intact. Surgical Extraction: Yes, sectioned tooth with surgical handpiece and bur 151 L Socket curetted & irrigated with sterile water. Compressed alveolar bone. Sutures: None Needed All adjacent teeth intact. Hemostasis achieved. Complications: None. Pt pre med. Tolerated procedure well . Pt states having analgesics at home. Written and verbal post-op instructions given. Patient discharged in stable condition; ambulatory, alert, and oriented. NV: F/U as needed / russell Fire Captain Marine: Beatriz Jacobo Dentist: José Miguel Sy DDS documented in this encounter Plan of Treatment Upcoming Encounters Date Type Department Care Team (Late st Contact Info) Description 08/28/2024 9:00 AM EDT Office Visit [facility] ADULT DENTAL [address] [place], [place] [phone] José Miguel Sy DDS [address] [place] [address] documented as of this encounter Procedures Procedure Name Priority Date/Time Associated Diagnosis Comments 14 EXTRACTION, ERUPTED TOOTH REQ REMOVAL OF BONE AND/OR SECTIONING OF TOOTH Routine 07/11/2024 8:00 AM EST Dental caries into pulp CASE PRESENTATION, DETAILED AND EXTENSIVE TREATMENT PLANNING Routine 07/11/2024 8:00 AM EST documented in this encounter Visit Diagnoses Diagnosis Dental caries into pulp- Primary documented in this encounter Additional Health Concerns Assessment Noted Time PHQ-9 Depression Total Score: 1 06/15/19 24 10:29 AM EST documented as of this encounter Care Teams Director Group Sales Relationship Specialty Start Date End Date Gavi Aldana DO [address] [place], [place] [phone] PCP - General Family Medicine 06/06/18 documented as of this encounter
--- OUTSIDE RECORDS SUMMARY | 2024-07-30 11:15 | XMS_ITS | Encounter Summary ---
Author Organization [employer] Address [address] [facility] [address] [place] [address] Care Team Providers Care Superintendent General Name Role Phone Gavi Aldana DO Primary Care Provider + [phone] Reason for Visit * Reason Comments Med Refill Encounter Details Date Type Department Care Team ([facility] st Contact Info) Description 04/04/2024 Refill [facility] MEDICINE [address] [place] [address] Gavi Aldana DO [address] [place] [address] Social History Tobacco Use Types Packs/Day Years [...] 08/28/2024 9:00 AM EDT Office Visit [facility] ADULT DENTAL [address] [place] [address] José Miguel Sy DDS [address] [place] [address] documented as of this encounter Visit Diagnoses Not on filedocumented in this encounter Additional Health Concerns Assessment Noted Time PHQ-9 Depression Total Score: 1 06/15/19 24 10:29 AM EST documented as of this encounter Care Teams Superintendent General Relationship Specialty Start Date End Date Gavi Aldana DO [address] [place] [address] PCP - General Family Medicine 06/06/18 documented as of this encounter
--- OUTSIDE RECORDS SUMMARY | 2024-07-30 11:15 | XMS_ITS | Encounter Summary ---
Author Organization [employer] [facility] Address [address] [place] [address] 7[address] [place] [address] Care Team Providers Care Lead Driver Name Role Phone Gavi Aldana DO Primary Care Provider + [phone] Encounter Details Date Type Department Care Team (Late st Contact Info) Description 06/22/2022 Orders Only [facility] MEDICINE [address] [place] [address] Tamara Floyd LPN Social History Tobacco Use Types Packs/Day [...] not to disclose 2021 10:21 AM EDT COVID-19 Exposure Response Date Recorded In the last 10 days, have yo u been in contact with someone who was confirmed or suspected to have Coronavirus/COVID-19? No / Unsure 06/10/2022 10:39 AM EST documented as of this encounter Plan of Treatment Upcoming Encounters Date Type Department Care Team (Late st Contact Info) Description 08/28/2024 9:00 AM EDT Office Visit [facility] ADULT DENTAL [address] [place] [address] José Miguel Sy DDS [address] [place], [place] [phone] documented as of this encounter Procedures Procedure Name Priority Date/Time Associated Diagnosis Comments GLUCOSE, WHOLE BLOOD Routine 07/06/2022 10:44 AM EST documented in this encounter Results * (ABNORMAL) Glucose, Whole Blood (07/06/2022 10:44 AM EST) Glucose, Whole Blood 204(H) 60 - 115 mg/dL [facility] Comment:METER #: [id number] 5Testing performed in the Endocrinology Department [address] , [address], [facility]. 07/06/2022 10:4 4 AM EST 07/06/2022 10:48 AM EST [facility] External Provider LAB BLO OD ORDERABLES Final Result Performing Organization Address City/State/[facility] Co de Phone Number [facility] [address] [place] [address] [phone] documented in this encounter Visit Diagnoses Not on filedocumented in this encounter Care Teams Lead Driver Relationship Specialty Start Date End Date Gavi Aldana DO [address] [place] [address] PCP - General Family Medicine 06/06/18 documented as of this encounter
--- OUTSIDE RECORDS SUMMARY | 2024-07-30 11:15 | XMS_ITS | Clinical Summary ---
Author Organization [employer] Address [address] [facility] [address] [place] [address] Care Team Providers Care Customer Care Representative Name Role Phone Gavi Aldana DO Primary Care Provider [phone] Allergies Active Allergy Reactions Criticality Noted Date Comments Luis A Inhibitors Cough,Hives 08/10/2010 Medications Skin Protectants, Misc. (Minerin Creme) creamIndicatio ns:Dry skin APPLY TO DRY SKIN 2 TO 3 TIMES PER DAY 454 g 4 06/22/19 23 Active Skin Protectants, Misc. (eucerin) cream apply topically to dry skin 2-3times a day 09/24/19 22 Active benzonatate (Tessalon) 100 MG capsule TAKE 1 CAPSULE BY MOUTH THREE TIMES DAILY NEEDED FOR COUGH 30 capsule 10/12/19 23 Active Nystop 700228 UNIT/GM powder APPLY TO THE AFFECTED AREA(S) TWICE DAILY 60 g 5 11/24/19 23 Active TRUEplus Glucose On The Go 4 g chewable tablet CHEW 2 TO 4 TABLETS NEEDED FOR LOW BLOOD SUGAR 08/02/19 23 Active Eliquis 5 MG tablet Take 5 mg by mouth 2 times daily. 12/14/19 23 Active atorvastatin (Lipitor) 10 MG tablet Take 10 mg by mouth in the morning. 12/31/19 23 Active baclofen (Lioresal) 10 MG tablet Take 10 mg by mouth if needed in the morning, at noon, and at bedtime. 03/10/20 22 Active digoxin (Lanoxin) 125 MCG tablet Take 125 mcg by mouth in the morning. 10/12/19 23 Active FeroSul 325 (65 Fe) MG tablet Take 1 tablet by mouth in the morning. 12/15/19 23 Active furosemide (Lasix) 20 MG tablet 01/05/20 Active FREESTYLE LITE test strip TEST BLOOD SUGAR FOUR TIMES DAILY 12/31/19 Active NovoLOG FLEXPEN 100 UNIT/ML pen INJECT 3-6 UNITS SUBCUTANEOUSLY THREE TIMES DAILY 12/15/19 Active Lantus SoloStar 100 UNIT/ML pen 01/04/20 Active BD Pen Needle Thania U/F 32G X 4 MM misc USE DIRECTED FOUR TIMES DAILY 12/24/19 Active TRUEplus Lancets 33G misc TEST BLOOD SUGAR THREE OR FOUR TIMES DAILY 12/01/19 Active methotrexate 2.5 MG tablet TAKE 8 TABLETS BY MOUTH ONCE WEEK 12/01/19 Active metoprolol tartrate (Lopressor) 100 MG tablet Take 100 mg by mouth with breakfast and with evening meal. 12/14/19 Active Entresto 49-51 MG tablet Take 1 tablet by mouth 2 times daily. 12/14/19 Active spironolactone (Aldactone) 25 MG tablet Take 25 mg by mouth in the morning. 10/12/19 Active gabapentin (Neurontin) 100 MG capsuleIndicat ions:Other chronic pain TAKE 2 CAPSULES BY MOUTH EVERY EVENING 60 capsule 1 01/22/20 Active UltiCare Short Pen [place] 31G X 8 MM misc USE DIRECTED FOUR TIMES DAILY 01/12/20 Active fexofenadine (Barbara) 180 MG tablet Take 1 tablet (180 mg) by mouth if needed each day (Allergies). 30 tablet 11 03/31/20 Active omeprazole (PriLOSEC) [address] capsule Take 1 capsule (40 mg) by mouth before breakfast and before evening meal. 60 capsule 11 03/31/20 Active Breo Ellipta 200-25 MCG/ACT aerosol powder INHALE 1 PUFF BY MOUTH EVERY DAY AT THE SAME TIME 05/26/20 Active folic acid (Folvite) 1 MG tablet Take 1,000 mcg by mouth in the morning. 06/03/20 Active clotrimazole (Lotrimin) 1 % cream APPLY TO THE AFFECTED AREA(S) AND SURROUNDING AREA(S) TOPICALLY TWICE DAILY IN THE MORNING AND IN THE EVENING 60 g 2 06/29/19 Active cholecalcifero l (Vitamin D-3) 50 MCG (1999 UT) capsule Take 1 capsule (50 mcg) by mouth Once per day. 30 capsule 11 10/04/19 24 Active melatonin 5 MG tablet TAKE 1 OR 2 TABLETS BY MOUTH AT BEDTIME NEEDED FOR SLEEP 60 tablet 3 12/01/19 24 Active acetaminophen (Tylenol 8 Hour) 650 MG ER tablet TAKE 1 TABLET BY MOUTH EVERY 8 HOURS NEEDED FOR MILD PAIN 30 tablet 04/04/20 24 Active amitriptyline (Elavil) 10 MG tablet Take 0.5 tablets (5 mg) by mouth at bedtime. 15 tablet 3 05/28/20 24 025 Active glucose 4 g chewable tablet CHEW 2 TO 4 TABLETS BY MOUTH NEEDED FOR LOW BLOOD SUGAR 30 tablet 5 06/01/20 24 Active amoxicillin (Amoxil) 500 MG capsuleIndicat ions:Dental caries into pulp Take 1 capsule (500 mg) by mouth every 8 (eight) hours for 7 days. 21 capsule 07/04/19 25 025 Active Problems Problem Noted Date Diagnosed Date Dental caries into pulp 07/04/2024 Dental calculus 07/04/2024 Localized gingival recession 07/04/2024 Dental caries 07/04/2024 Missing teeth, acquired 07/04/2024 Chronic dental pain 07/04/2024 Pulmonary nodules 06/15/2023 Multiple thyroid nodules 06/15/2023 Allergic rhinitis 06/15/2023 Type 1 diabetes mellitus 09/08/2022 Essential hypertension 09/08/2022 Hyperlipidemia 09/08/2022 Nonischemic cardiomyopathy 09/08/2022 Seropositive rheumatoid arthritis 09/08/2022 Chronic left shoulder pain 09/08/2022 Chronic right shoulder pain 09/08/2022 Immune thrombocytopenic purpura 09/08/2022 Eczema 09/08/2022 AICD (automatic cardioverter/defibrillator) pres ent 09/08/2022 Chronic systolic heart failure 09/08/2022 Paroxysmal atrial flutter 09/08/2022 Chronic gastroesophageal reflux disease 09/09/19 23 History of Helicobacter pylori infection 023 History of COVID-19 06/10/2022 Resolved Problems Problem Noted Date Diagnosed Date Resolved Date Acute sore throat 06/10/2022 09/08/2022 Assessment & Plan (06/10/2022 11:29 AM EST): Pt is here for a sick visit with c/o acute sore throat x 2 days associated with mild headache. Pt reports she was exposed to Covid-19 at [employer] but she always wears a mask Physical exam wnl Rapid strep, Covid and Flu negative Plan: supportive measures, recommended Tylenol prn, pt to test at home if symptoms do not improve or worsen and notify us if positive or worsening of symptoms Pt verbalized understanding Encounters Date Type Department Care Team Description 07/17/2024 Orders Only GENERIC EXTERNAL DATA DEPARTMENT Provider, Generic External Data 07/11/2024 8:00 AM EST Office Visit [facility] [address] [facility] [place] [address] José Miguel Sy DDS Dental caries into pulp (Primary Dx) 07/04/2024 9:00 AM EST Office Visit [facility] [address] [place] [address] Laura Dow Dental caries into pulp (Primary Dx); Dental calculus; Localized gingival recession; Dental caries; Missing teeth, acquired; Chronic dental pain 06/18/2024 9:30 AM EST Clinical Support [facility] [address] [place] [id number] Christine Spencer RN Forgetfulness 06/18/2024 Travel 06/01/2024 Refill [facility] [address] [place] [id number] Gavi Aldana DO 05/28/2024 9:45 AM EST Office Visit [address] [address] Gavi Aldana DO Type 1 diabetes mellitus without complication (CMS/HCC) (Primary Dx); Essential hypertension; Other hyperlipidemia; Nonischemic cardiomyopathy (CMS/HCC); Immune thrombocytopenic purpura (CMS/HCC); Seropositive rheumatoid arthritis (CMS/HCC); Chronic pain of both shoulders; Pulmonary nodules; Multiple thyroid nodules; Chronic cough; Abnormal CT of the chest; Nocturnal headaches; Sleep-disordered breathing; Forgetfulness; Healthcare maintenance 05/28/2024 Travel 05/09/2024 Orders Only GENERIC EXTERNAL DATA DEPARTMENT Provider, Generic External Data from Last 3 Months Immunizations Name Administration Dates Next Due Hep B, adult 01/15/2015,08/07/2014,07/10/2014 Influenza High-dose Quadriva lent Preservative Free 03/01/2022,03/10/2020 Influenza injectable quadriv alent IIV4 with preservative 03/24/2016,04/14/2015 Influenza injectable quadriv alent preservative free 06/15/2023,04/06/2017,02/26/2014 Influenza, High Dose Seasona l, Preservative Free 02/28/2024,05/25/2019,03/08/2018 Influenza, IIV3, injectable 04/09/2014,0 02/22/2013,03/25/2011,02/13 Influenza, Split (incl. [place] antigen) 03/16/2013,02/02/2012 Influenza, trivalent, adjuvanted 03/05/2021 Pneumococcal Conjugate PCV 13 10/15/2014 Pneumococcal Conjugate PCV 20 01/05/2023 Pneumococcal Polysaccharide PPSV23 11/20/2015, TD (adult), 2 Lf tetanus tox oid, preservative free, adsorbed 02/10/2021 Tdap 05/21/2010 Zoster, Recombinant 07/20/2023,12/17/2021 Zoster, live 08/07/2014 Social History Tobacco Use Types Packs/Day Years Used Date Smoking Tobacco: Never Passive Smoke Exposure: Never Smokeless Tobacco: Never Tobacco Cessation:Counseling Given: Not Answered Alcohol Use Standard Drinks/Week Comments Never 0 [...] not to disclose 2021 10:21 AM EDT Last Filed Vital Signs Vital Sign Reading Time Taken Comments Blood Pressure 128/80 07/11/2024 8:02 AM EST Pulse 72 05/28/2024 9:21 AM EST Temperature 36.2 ??C (97.2 ??F) 05/28/2024 9:21 AM ES T Respiratory Rate 18 05/28/2024 9:21 AM EST Oxygen Saturation 96% 05/28/2024 9:21 AM EST Inhaled Oxygen Concentration - - Weight 60.1 kg (132 lb 6.4 oz) 05/28/2024 9:21 A M EST Height 149.9 cm (4' 11 ) 05/28/2024 9:21 AM EST Body Mass Index 26.74 05/28/2024 9:21 AM EST Plan of Treatment Upcoming Encounters Date Type Department Care Team (Late st Contact Info) Description 08/28/2024 9:00 AM EDT Office Visit [facility] [address] [place] [address] José Miguel Sy DDS [address] [place] [address] Health Maintenance Due Date Last Done Comments CT Colonography 1950 FIT DNA/Cologuard 1950 FIT 1950 FOBT 1950 Sigmoidoscopy 1950 Diabetes: Foot Exam 1958 Eye Exam 1958 Dental Prophylaxis 09/09/2022 03/10/2022, 0 09/25/2018, 11/16/2017, Additional history exists RSV Patients and Patients Aged 60 years or older (1 - 1-dose 75+ series) 11/24/2023 COVID-19 Vaccine (3 - 2023- season) 2024 07/14/2021, 06/23/2021 Depression Screening 06/15/2024 06/15/2023, 06/15/19 Diabetes: Hemoglobin A1C 08/26/2024 024, 02/28/2024, 10/24/2023, Additional history exists Diabetes: Urine Protein Screening 09/19/2024 09/20/2023, 10/13/2022, 10/19/2021, Additional history exists Lipid Panel 09/19/2024 09/20/2023, 10/04, 10/19/2021, Additional history exists SDOH Screening 10/23/2024 10/24/2023 Dental Oral Exam 01/02/2025 07/04/2024, 10/2021, 09/25/2018, Additional history exists Dental X-Ray: Full Mouth 03/11/2025 03/10/2022, 12/04 Alcohol/Substance Use Screening 05/28/2025 05/28/2024 Dental X-Ray: Bitewings 07/05/2025 07/04/19 25, 03/10/2022, 11/16/2017, Additional history exists Tobacco Screening 07/11/2025 07/11/2024 DTaP/Tdap/Td Vaccines (3 - Td or Tdap) 02/10/2031 02/10/2021, 05/21/2010 Colonoscopy 07/28/2031 07/28/2021 Colorectal Cancer Screening 07/28/2031 Hepatitis B Vaccines Completed 01/15/2015, 08/07/2014, 07/10/2014 Pneumococcal Vaccine: 50+ Years Completed 01/05/2023, 11/20/2015, 10/15/2014, Additional history exists Zoster Vaccines Completed 07/20/2023, 12/04, 08/07/2014 Influenza Vaccine Completed 02/28/2024, , 03/01/2022, Additional history exists Hepatitis C Screening Completed 05/09/2024, 020 HIB Vaccines Aged Out No longer eligi ble based on patient's age to complete this topic HPV Vaccines Aged Out No longer eligi ble based on patient's age to complete this topic Hepatitis A Vaccines Aged Out No long er eligible based on patient's age to complete this topic IPV Vaccines Aged Out No longer eligi ble based on patient's age to complete this topic Meningococcal Vaccine Aged Out No olivia cele eligible based on patient's age to complete this topic RSV under 20 months Aged Out No longe r eligible based on patient's age to complete this topic Rotavirus Vaccines Aged Out No longer eligible based on patient's age to complete this topic Procedures Procedure Name Priority Date/Time Associated Diagnosis Comments GLUCOSE, WHOLE BLOOD Routine 07/17/2024 9:33 AM EST CASE PRESENTATION, DETAILED AND EXTENSIVE TREATMENT PLANNING Routine 07/11/2024 8:00 AM EST 14 EXTRACTION, ERUPTED TOOTH REQ REMOVAL OF BONE AND/OR SECTIONING OF TOOTH Routine 07/11/2024 8:00 AM EST Dental caries into pulp COMPREHENSIVE ORAL EVALUATION - NEW OR ESTABLISHED PATIENT Routine 07/04/2024 9:00 AM EST INTRAORAL - PERIAPICAL EACH ADDITIONAL RADIOGRAPHIC IMAGE [...] gingival recession Dental caries Missing teeth, acquired CASE PRESENTATION, DETAILED AND EXTENSIVE TREATMENT PLANNING Routine 07/04/2024 9:00 AM EST Dental caries into pulp Dental calculus Localized gingival recession Dental caries Missing teeth, acquired ORAL HYGIENE INSTRUCTIONS Routine 07/04/2024 9:00 AM EST Dental caries into pulp Dental calculus Localized gingival recession Dental caries Missing teeth, acquired BITEWINGS - 4 RADIOGRAPHIC IMAGES Routine 07/04/2024 9:00 AM EST Dental caries into pulp Dental calculus Localized gingival recession Dental caries Missing teeth, acquired 3 O AMALGAM FILLING Routine 07/04/2024 1 2:00 AM EST POCT GLYCATED HEMOGLOBIN, TOTAL Routine 05/28/2024 9:23 AM EST Type 1 diabetes mellitus without complication (CMS/HCC) POCT GLUCOSE Routine 05/28/2024 9:22 AM EST Type 1 diabetes mellitus without complication (CMS/HCC) XR SPINE CERVICAL W/FLEXT AND/OR EXT Routine 05/09/2024 10:10 AM EST XR SHOULDER 2+ VIEWS LEFT Routine 05/09/2024 9:56 AM EST XR HAND WRIST RT Routine 05/09/2024 9:56 AM EST XR HAND WRIST LT Routine 05/09/2024 9:56 AM EST XR SHOULDER 2+ VIEWS RIGHT Routine 05/09/2024 9:56 AM EST HEPATITIS PANEL, GENERAL Routine 05/09/2024 9:54 AM EST SLIDE REVIEW Routine 05/09/2024 9:54 AM EST CBC WITH AUTO DIFFERENTIAL Routine 05/09/2024 9:54 AM EST SED RATE BY MODIFIED WESTERGREN Routine 05/09/2024 9:54 AM EST C-REACTIVE PROTEIN Routine 05/09/2024 9: 54 AM EST COMPREHENSIVE METABOLIC PANEL Routine 05/09/2024 9:54 AM EST LIPID PANEL, STANDARD Routine 09/20/2023 7:27 AM EDT Type 2 diabetes mellitus without complication, with long-term current use of insulin (CMS/HCC) ALBUMIN, RANDOM URINE W/CREATININE Routine 09/20/2023 7:23 AM EDT Type 2 diabetes mellitus without complication, with long-term current use of insulin ([facility]) PROPHYLAXIS - ADULT Routine 03/10/2022 1 2:00 AM EDT INTRAORAL - COMPLETE SERIES OF RADIOGRAPHIC IMAGES Routine 03/10/2022 12:00 AM EDT HM COLONOSCOPY Routine 07/28/2021 2:52 PM EST from Last 3 Months or Most Recently Relevant to Health Maintenance Results * (ABNORMAL) Glucose, Whole Blood (07/17/2024 9:33 AM EST) Glucose, Whole Blood 287(H) 60 - 115 mg/dL [facility] Comment:METER #: [id number] 5Testing performed in the Endocrinology Department [address] , [address], [facility]. 07/17/2024 9:33 AM EST 07/17/2024 9:38 AM EST us Generic External Data Provider LAB BLOOD ORDERAB LES Final Result [facility] [address] [place] [address] [id number] [phone] * (ABNORMAL) POCT HGB A1C (05/28/2024 9:23 AM EST) Hemoglobin A1C 10.2(A) 4.0 - 6.0 % QC Media Lot # [id number] Lot# Expiration Date ,026 Blood 05/28/2024 9:23 AM EST us Gavi Aldana DO POINT OF CARE TEST ENTER/DIAMANTE T ORDERABLES Final Result * POCT Glucose (05/28/2024 9:22 AM EST) Glucose Blood, POC 149 60 - 200 mg/dL QC Media Lot # [id number] Lot# Expiration Date 172,025 Blood Capillary blood specimen / Unknown 05/28/2024 9:22 AM EST us Gavi Aldana DO POINT OF CARE TEST ENTER/DIAMANTE T ORDERABLES Final Result * XR Spine Cervical w/ Flext and/ Or Ext (05/09/2024 10:10 AM EST) Anatomical Region Laterality Modality Radiographic Lo ging 05/09/2024 10:1 0 AM EST Narrative 05/29/2024 1:12 PM EST ? [facility] ?[address] ?[place] [address] ?XRay Report ? Signed ? Patient: Candi Solomon ?MR#: ?? [id number] ? : 1950 ?Acct:[id number] ? Age/Sex: 73 / F ?ADM Date: 05/09/24 ? Loc: HO.XRAY ? Attending Dr: Megan Trinidad MD ? Ordering Physician: Megan Trinidad MD ?? Date of Service: 05/09/24 ?? Procedure(s): XR cervical spine w flex/ext ?? Accession Number(s): [id number] ? cc: Megan Trinidad MD; Gavi Aldana DO ? EXAMINATION: ?? XR CERVICAL SPINE ? CLINICAL INFORMATION: ?? Rheumatoid arthritis with rheumatoid factor, unspecified M05.9. ? COMPARISON: ?? None available. ? TECHNIQUE: ?? 6 views of the cervical spine, inclusive of flexion and extension ?? views, were obtained. ? FINDINGS: ?? Degenerative disc space narrowing most pronounced from C5 to T1. No ?? pathologic motion with flexion or extension. The visualized lung apices ?? are clear. The prevertebral soft tissues are normal. ? XR/XR cervical spine w flex/ext ?? IMPRESSION: ?? Degenerative disc space narrowing most pronounced from C5 to T1. ? Electronically signed by: ??Mike Atkins MD ??05/29/2024 01:09 PM EST RP ? Dictated By: ?Mike Atkins MD ? Signed By: ?<Electronically signed by Mike Atkins MD in OV> ?05/29/ 1309 ? DD/DT: 12//24 1010 ? TD/TT: 12/24 1030 ? Obstetrics Gynecology Md: ? Procedure Note Donotuseinterpreter, Image - 05/29/[address] [address] XRay Report Signed Patient: Candi Solomon EMR#: [id number] : 9Acct:[id number] Age/Sex: 73 / FADM Date: 05/09/24 Loc: HO.XRAY Attending Dr: Megan Trinidad MD Ordering Physician: Megan Trinidad MD Date of Service: 05/09/24 Procedure(s): XR cervical spine w flex/ext Accession Number(s): [id number] cc: Megan Trinidad MD; Gavi Aldana DO EXAMINATION: XR CERVICAL SPINE CLINICAL INFORMATION: Rheumatoid arthritis with rheumatoid factor, unspecified M05.9. COMPARISON: None available. TECHNIQUE: 6 views of the cervical spine, inclusive of flexion and extension views, were obtained. FINDINGS: Degenerative disc space narrowing most pronounced from C5 to T1. No pathologic motion with flexion or extension. The visualized lung apices are clear. The prevertebral soft tissues are normal. XR/XR cervical spine w flex/ext IMPRESSION: Degenerative disc space narrowing most pronounced from C5 to T1. Electronically signed by: Mike Atkins MD 05/29/2024 01:09 PM EST RP Workstation: [id number] Dictated By: Mike Atkins MD Signed By: <Electronically signed by Mike Atkins MD in OV> 05/29/24 1309 DD/ 1010 TD/TT: 05/09/24 1030 Obstetrics Gynecology Md: us [facility] External Provider IMG XR PROCEDURES Edited Result - Final * XR HAND WRIST RT (05/09/2024 9:56 AM EST) Anatomical Region Laterality Modality Abdomen Radiographic Lo ging 05/09/2024 9:56 AM EST Narrative 06/20/2024 4:21 PM EST ? [place] [facility] ?[address] ?[place] [address] ?XRay Report ? Signed ? Patient: Sanchez Mueller,[place] ?MR#: ?? [id number] ? : 1950 ?Acct:[id number] ? Age/Sex: 73 / F ?ADM Date: 05/09/24 ? Loc: HO.XRAY ? Attending Dr: Megan Trinidad MD ? Ordering Physician: Megan Trinidad MD ?? Date of Service: 05/09/24 ?? Procedure(s): XR hand wrist RT ?? Accession Number(s): [id number] ? cc: Megan Trinidad MD; Gavi Aldana DO ? EXAMINATION: ?? XR HAND/ WRIST RIGHT ? CLINICAL INFORMATION: ?? Rheumatoid arthritis with rheumatoid factor, unspecified M05.9. ? COMPARISON: ?? XR Right hand wrist 06/18/2023 ? TECHNIQUE: ?? PA, lateral, navicular and oblique views of the right hand and wrist. ? FINDINGS: ?? Diffuse bone demineralization. No evidence of acute fracture. Mild ?? degenerative arthritis in some of the interphalangeal joints of the ?? fingers. Alignment is anatomic. No erosions or soft tissue ?? calcifications. ? XR/XR hand wrist RT ?? IMPRESSION: ?? Mild degenerative arthritis as above. ? Study is assigned/presented to co for interpretation on Jun 20, 2024 ? Electronically signed by: ??Abram Allison MD ??06/20/2024 04:18 PM EST ?? RP ? Dictated By: ?Abram Allison MD ? Signed By: ?<Electronically signed by Abram Allison MD in OV> ?06/20/24 1618 ? DD/ 0956 ? TD/TT: 05/09/24 1030 ? Obstetrics Gynecology Md: HB ? Procedure Note Rekha, Image - 06/20/[address] [address] XRay Report Signed Patient: Candi Solomon EMR#: [id number] : 9Acct:[id number] Age/Sex: 73 / FADM Date: 05/09/24 Loc: [facility] Attending Dr: Megan Trinidad MD Ordering Physician: Megan Trinidad MD Date of Service: 05/09/24 Procedure(s): XR hand wrist RT Accession Number(s): [id number] cc: Megan Trinidad MD; Gavi Aldana DO EXAMINATION: XR HAND/ WRIST RIGHT CLINICAL INFORMATION: Rheumatoid arthritis with rheumatoid factor, unspecified M05.9. COMPARISON: XR Right hand wrist 06/18/2023 TECHNIQUE: PA, lateral, navicular and oblique views of the right hand and wrist. FINDINGS: Diffuse bone demineralization. No evidence of acute fracture. Mild degenerative arthritis in some of the interphalangeal joints of the fingers. Alignment is anatomic. No erosions or soft tissue calcifications. XR/XR hand wrist RT IMPRESSION: Mild degenerative arthritis as above. Study is assigned/presented to me for interpretation on Jun 20, 2024 Electronically signed by: Abram Allison MD 06/20/2024 04:18 PM EST RP Dictated By: Abram Allison MD Signed By: <Electronically signed by Abram Allison MD in OV> 06/20/24 1618 DD/ 0956 TD/TT: 05/09/24 1030 Obstetrics Gynecology Md: BOWEN [facility] External Provider IMG XR PROCEDURES Final Result * XR HAND WRIST LT (05/09/2024 9:56 AM EST) Anatomical Region Laterality Modality Abdomen Radiographic Lo ging 05/09/2024 9:56 AM EST Narrative 06/20/2024 4:19 PM EST ? [facility] ?[address] ?[place] [address] ?XRay Report ? Signed ? Patient: Sanchez Mueller,[place] ?MR#: ?? [id number] ? : 1950 ?Acct:[id number] ? Age/Sex: 73 / F ?ADM Date: 12/04/24 ? Loc: HO.XRAY ? Attending Dr: Megan Trinidad MD ? Ordering Physician: Megan Trinidad MD ?? Date of Service: 05/09/24 ?? Procedure(s): XR hand wrist LT ?? Accession Number(s): [id number] ? cc: Megan Trinidad MD; Gavi Aldana DO ? EXAMINATION: ?? XR HAND/ WRIST LEFT ? CLINICAL INFORMATION: ?? Rheumatoid arthritis with rheumatoid factor, unspecified M05.9. ? COMPARISON: ?? XR Left hand wrist 06/18/2019 ? TECHNIQUE: ?? Four views of the left hand and wrist. ? FINDINGS: ?? Decreased bone mineralization. No evidence of acute fracture or ?? dislocation. Multifocal mild arthritis, including mild first CMC joint, ?? and arthritis in some of the interphalangeal joints of the fingers. ??No ?? erosions. No abnormal soft tissue calcifications. ? XR/XR hand wrist LT ?? IMPRESSION: ?? Mild osteoarthritis as detailed above. ? Study is assigned/presented to me for interpretation on Jun 20, 2024 ? Electronically signed by: ??Abram Allison MD ??06/20/2024 04:17 PM EST ? Dictated By: ?Abram Allison MD ? Signed By: ?<Electronically signed by Abram Allison MD in OV> ?06/20/24 1617 ? DD/ 0956 ? TD/TT: 05/09/24 1030 ? Obstetrics Gynecology Md: HB ? Procedure Note Rekha, Jose - 06/20/2024 [place] [address] XRay Report Signed Patient: Candi Solomon EMR#: [id number] : 9Acct:[id number] Age/Sex: 73 / FADM Date: 05/09/24 Loc: HO.XRAY Attending Dr: Megan Trinidad MD Ordering Physician: Megan Trinidad MD Date of Service: 05/09/24 Procedure(s): XR hand wrist LT Accession Number(s): [id number] cc: Megan Trinidad MD; Gavi Aldana DO EXAMINATION: XR HAND/ WRIST LEFT CLINICAL INFORMATION: Rheumatoid arthritis with rheumatoid factor, unspecified M05.9. COMPARISON: XR Left hand wrist 06/18/2019 TECHNIQUE: Four views of the left hand and wrist. FINDINGS: Decreased bone mineralization. No evidence of acute fracture or dislocation. Multifocal mild arthritis, including mild first CMC joint, and arthritis in some of the interphalangeal joints of the fingers. No erosions. No abnormal soft tissue calcifications. XR/XR hand wrist LT IMPRESSION: Mild osteoarthritis as detailed above. Study is assigned/presented to me for interpretation on Jun 20, 2024 Electronically signed by: Abram Allison MD 06/20/2024 04:17 PM EST RP Dictated By: Abram Allison MD Signed By: <Electronically signed by Abram Allison MD in OV> 06/20/24 1617 DD/ 0956 TD/TT: 05/09/24 1030 Obstetrics Gynecology Md: BOWEN [facility] External Provider IMG XR PROCEDURES Final Result * XR Shoulder 2+ Views Right (05/09/2024 9:56 AM EST) Anatomical Region Laterality Modality Upper Extremities, Shoulder Right Radi ographic Imaging 05/09/2024 9:56 AM EST Narrative 06/20/2024 4:17 PM EST ? [facility] ?[address] ?[place] [address] ?XRay Report ? Signed ? Patient: Candi Solomon ?MR#: ?? [id number] ? : 1950 ?Acct:[id number] ? Age/Sex: 73 / F ?ADM Date: 05/09/24 ? Loc: HO.XRAY ? Attending Dr: Megan Trinidad MD ? Ordering Physician: Megan Trinidad MD ?? Date of Service: 05/09/24 ?? Procedure(s): XR shoulder RT min 2V ?? Accession Number(s): [id number] ? cc: Megan Trinidad MD; Gavi Aldana DO ? EXAMINATION: ?? XR SHOULDER RIGHT ? CLINICAL INFORMATION: ?? Rheumatoid arthritis with rheumatoid factor, unspecified M05.9. ? COMPARISON: ?? XR Right shoulder 02/05/2021 ? TECHNIQUE: ?? Three views of the right shoulder. ? FINDINGS: ?? Moderate acromioclavicular arthritis. Glenohumeral joint space is ?? maintained. No acute fracture or dislocation. No abnormal soft tissue ?? calcification. ? XR/XR shoulder RT min 2V ?? IMPRESSION: ?? Moderate acromioclavicular arthritis. ? Study is assigned/presented to co for interpretation on Jun 20, 2024 ? Electronically signed by: ??Abram Allison MD ??06/20/2024 04:14 PM EST ? Dictated By: ?Abram Allison MD ? Signed By: ?<Electronically signed by Abram Allison MD in OV> ?06/20/24 1614 ? DD/ 0956 ? TD/TT: 05/09/24 1030 ? Obstetrics Gynecology Md: HB ? Procedure Note Rekha, Image - 06/20/2024 [place] [address] XRay Report Signed Patient: Candi Solomon EMR#: [id number] : 9Acct:[id number] Age/Sex: 73 / FADM Date: 05/09/24 Loc: [facility] Attending Dr: Megan Trinidad MD Ordering Physician: Megan Trinidad MD Date of Service: 05/09/24 Procedure(s): XR shoulder RT min 2V Accession Number(s): [id number] cc: Megan Trinidad MD; Gavi Aldana DO EXAMINATION: XR SHOULDER RIGHT CLINICAL INFORMATION: Rheumatoid arthritis with rheumatoid factor, unspecified M05.9. COMPARISON: XR Right shoulder 02/05/2021 TECHNIQUE: Three views of the right shoulder. FINDINGS: Moderate acromioclavicular arthritis. Glenohumeral joint space is maintained. No acute fracture or dislocation. No abnormal soft tissue calcification. XR/XR shoulder RT min 2V IMPRESSION: Moderate acromioclavicular arthritis. Study is assigned/presented to me for interpretation on Jun 20, 2024 Electronically signed by: Abram Allison MD 06/20/2024 04:14 PM EST RP Dictated By: Abram Allison MD Signed By: <Electronically signed by Abram Allison MD in OV> 06/20/24 1614 DD/ 0956 TD/TT: 05/09/24 1030 Obstetrics Gynecology Md: BOWEN [facility] External Provider IMG XR PROCEDURES Final Result * XR Shoulder 2+ Views Left (05/09/2024 9:56 AM EST) Anatomical Region Laterality Modality Upper Extremities, Shoulder Left Radi ographic Imaging 05/09/2024 9:56 AM EST Narrative 06/20/2024 4:23 PM EST ? [facility] ?[address] ?[place] [address] ?XRay Report ? Signed ? Patient: Candi Solomon ?MR#: ?? [id number] ? : 1950 ?Acct:[id number] ? Age/Sex: 73 / F ?ADM Date: 05/09/24 ? Loc: HO.XRAY ? Attending Dr: Megan Trinidad MD ? Ordering Physician: Megan Trinidad MD ?? Date of Service: 05/09/24 ?? Procedure(s): XR shoulder LT min 2V ?? Accession Number(s): [id number] ? cc: Megan Trinidad MD; Gavi Aldana DO ? EXAMINATION: ?? XR SHOULDER LEFT ? CLINICAL INFORMATION: ?? Rheumatoid arthritis with rheumatoid factor, unspecified M05.9. ? COMPARISON: ?? XR Left shoulder 02/03/2016 ? TECHNIQUE: ?? 5 views of the left shoulder. ? FINDINGS: ?? Diffuse bone demineralization. Mild acromioclavicular arthritis. ?? Glenohumeral joint space is relatively maintained. No evidence of acute ?? fracture or dislocation. No abnormal soft tissue calcification. ?? Pacemaker with leads present. ? XR/XR shoulder LT min 2V ?? IMPRESSION: ?? Mild acromioclavicular arthritis. No radiographic evidence of acute ?? fracture. ? Study is assigned/presented to co for interpretation on Jun 20, 2024 ? Electronically signed by: ??Abram Allison MD ??06/20/2024 04:21 PM EST ?? RP ? Dictated By: ?Abram Allison MD ? Signed By: ?<Electronically signed by Abram Allison MD in OV> ?06/20/24 1621 ? DD/ 0956 ? TD/TT: 05/09/24 1030 ? Obstetrics Gynecology Md: BOWEN ? Procedure Note Donotuseinterpreter, Image - 06/20/[address] [address] XRay Report Signed Patient: Candi Solomon EMR#: [id number] : 9Acct:[id number] Age/Sex: 73 / FADM Date: 05/09/24 Loc: HO.XRAY Attending Dr: Megan Trinidad MD Ordering Physician: Megan Trinidad MD Date of Service: 05/09/24 Procedure(s): XR shoulder LT min 2V Accession Number(s): [id number] cc: Megan Trinidad MD; Gavi Aldana DO EXAMINATION: XR SHOULDER LEFT CLINICAL INFORMATION: Rheumatoid arthritis with rheumatoid factor, unspecified M05.9. COMPARISON: XR Left shoulder 02/03/2016 TECHNIQUE: 5 views of the left shoulder. FINDINGS: Diffuse bone demineralization. Mild acromioclavicular arthritis. Glenohumeral joint space is relatively maintained. No evidence of acute fracture or dislocation. No abnormal soft tissue calcification. Pacemaker with leads present. XR/XR shoulder LT min 2V IMPRESSION: Mild acromioclavicular arthritis. No radiographic evidence of acute fracture. Study is assigned/presented to me for interpretation on Jun 20, 2024 Electronically signed by: Abram Allison MD 06/20/2024 04:21 PM [facility] Dictated By: Abram Allison MD Signed By: <Electronically signed by Abram Allison MD in OV> 06/20/24 1621 DD/ 0956 TD/TT: 05/09/24 1030 Obstetrics Gynecology Md: BOWEN us [facility] External Provider IMG XR PROCEDURES Final Result * Slide Review (05/09/2024 9:54 AM EST) Slide Review VERIFIED [facility] 05/09/2024 9:54 AM EST 05/09/2024 9:54 AM EST Generic External Data Provider LAB BLOOD ORDERAB LES Final Result Performing Organization Address City/[facility]/ZIP Co de Phone Number [facility] [address] [place] [address] [phone] * Hepatitis Panel, General (05/09/2024 9:54 AM EST) Pathologist [facility] Hepatitis A IgM Nonreactive Nonreactive [facility] Comment:IgM antibodies to MCCANN V not detected; does not exclude earlyacute or recovered HAV infection. ~Hepatitis B Surface Antibody REACTIVE Nonreactive [facility] Comment:REACTIVE: > 11.99 mI U/mL Hepatitis B Core Antibody Nonreactive Nonreactive [facility] Hepatitis C Antibody Nonreactive Nonreactive [facility] Comment:Antibodies to HCV no t detected; does not exclude early acuteHCV infection. Hepatitis B Surface Ag Negative Negative [facility] 05/09/2024 9:54 AM EST 05/09/2024 9:54 AM EST Generic External Data Provider LAB BLOOD ORDERAB LES Final Result Performing Organization Address [facility]/ZIP Co de Phone Number [facility] [address] [place] [address] [phone] * (ABNORMAL) CBC auto differential (05/09/2024 9:54 AM EST) Pathologist [facility] White Blood Count 6.8 4.8 - 10.8 X10*3/uL [facility] Red Blood Count 5.11 4.20 - 5.50 X10*6/uL [facility] Hemoglobin 11.6(L) 12.0 - 16.0 g/dl [facility] Hematocrit 37.2 37.0 - 47.0 % [facility] Mean Corpuscular Volume 72.8(L) 80.0 - 98.0 fL [facility] Mean Corpuscular Hemoglobin 22.7(L) 27.0 - 33.0 pg [facility] Mean Corpuscular HGB Conc 31.2 31.0 - 35.0 g/dl [facility] Red Cell Distribution Width 15.4 11.0 - 16.0 % [facility] Platelet Count 100(L) 160 - 400 X10*3/uL [facility] Comment:Confirmed by smear. Neutrophils Percent Auto 71.6 45 - 73 % [facility] Imm Gran Pct Auto 0.4 0.0 - 0.4 % [facility] Lymphocytes Percent Auto 18.6(L) 20 - 40 % [facility] Monocytes Percent Auto 7.1 2 - 11 % [facility] Eosinophils Percent Auto 1.9 0 - 4 % [facility] Basophils Percent Auto 0.4 0 - 2 % [facility] NRBC Pct Auto 0.0 0.0 - 0.2 /100WBC [facility] Neutrophils Absolute Auto 4.8 2.0 - 8.3 x10*3/uL [facility] Imm Gran Abs Auto 0.03 0.00 - 0.03 X10*3/uL [facility] Lymphocytes Absolute Auto 1.3 1.2 - 4.9 X10*3/uL [facility] Monocytes Absolute Auto 0.5 0.1 - 1.2 X10*3/uL [facility] Eosinophils Absolute Auto 0.1 0.0 - 0.4 X10*3/uL [facility] Basophils Absolute Auto 0.0 0.0 - 0.2 X10*3/uL [facility] NRBC Abs Auto 0.000 0.0 - 0.012 X10*3/uL [facility] 05/09/2024 9:54 AM EST 05/09/2024 9:54 AM EST us Generic External Data Provider LAB BLOOD ORDERAB LES Edited Result - Final Performing Organization Address [facility] de Phone Number [facility] [address] [place] [address] [phone] * Sed Rate by Modified Austinren (05/09/2024 9:54 AM EST) Erythrocyte Sedimentation Rate 10 0 - 20 MM/HR [facility] Comment:Patients with polycy themia and many hemoglobin abnormalitiesmay have depressed sed rates whereas patients with anemiamay have elevated sed rates. 05/09/2024 9:54 AM EST 05/09/2024 9:54 AM EST Generic External Data Provider LAB BLOOD ORDERAB LES Final Result Performing Organization Address [facility] Co de Phone Number [facility] [address] [place] [phone] * C-reactive Protein (05/09/2024 9:54 AM EST) Pathologist [facility] C Reactive Protein <0.10 < or = 0.50 mg/dL [facility] 05/09/2024 9:54 AM EST 05/09/2024 9:54 AM EST us Generic External Data Provider LAB BLOOD ORDERAB LES Final Result Performing Organization Address [facility] de Phone Number [facility] [address] [place] [phone] * (ABNORMAL) Comprehensive Metabolic Panel (05/09/2024 9:54 AM EST) Pathologist [facility] Sodium 140 135 - 145 mmol/L [facility] Potassium 4.3 3.3 - 5.1 mmol/L [facility] Chloride 105 96 - 108 mmol/L [facility] Carbon Dioxide 31(H) 22 - 29 mmol/L [facility] Anion Gap 8(L) 12 - 20 [facility] Urea Nitrogen (BUN) 18(H) 9 - 16 mg/dL [facility] Creatinine, Serum 0.85 0.5 - 1.4 mg/dL [facility] Estimated Glomerular Filt Rate >60 [facility] Comment:Chronic Kidney Disea se: Estimated GFR < 60 mL/min/[id number] Kidney Disease: Estimated GFR < 15 mL/min/1.73m2 Glucose 193(H) 60 - 115 mg/dL [facility] Calcium 9.4 8.4 - 10.2 mg/dL [facility] Bilirubin, Total 0.5 0.0 - 1.0 mg/dL [facility] Aspartate Amino Transferase 46(H) 5 - 31 U/L [facility] Alanine Aminotransferase 34(H) 0 - 31 U/L [facility] Total Protein 6.4(L) 6.5 - 8.0 g/dL [facility] Albumin Level 3.1(L) 3.5 - 5.0 g/dL [facility] Alkaline Phosphatase 122(H) 39 - 117 U/L [facility] 05/09/2024 9:54 AM EST 05/09/2024 9:54 AM EST us Generic External Data Provider LAB BLOOD ORDERAB LES Final Result [facility] [address] [place] [phone] * Lipid Panel, Standard (09/20/2023 7:27 AM EDT) Triglycerides 96 <150 mg/dL [facility] Comment:Desirable Triglyceri de: less than 150 mg/dLBorderline High Triglyceride 150-199 mg/dLHigh Triglyceride: 200-499 mg/dLVery High Triglyceride: greater than or equal to 5OO mg/dL Cholesterol 139 <200 mg/dL [facility] Comment:Desirable Cholestero l: less than 200 mg/dLBorderline High Cholesterol: 200-239 mg/dLHigh Cholesterol: greater than 239 mg/dL LDL Cholesterol Calculated 69 <100 mg/dL [facility] Comment:Desirable LDL: less than 100 mg/dLNear Optimal/Above Optimal LDL: 110- 129 mg/dLBorderline High LDL: 130-159 mg/dLHigh LDL: 160-189 mg/dLVery High LDL: greater than or equal to 190 mg/dL HDL Cholesterol 51 >40 mg/dL [facility] Comment:Desirable HDL: great er than 40 mg/dL Note: This HDL assay may give artificially low results in patients with liver disease. Blood Venous blood specimen / Unknown 09/20/2023 7:27 AM EDT 09/20/2023 7:27 AM EDT Gavi Aldana DO LAB BLOOD ORDERABLES Final R esult Performing Organization Address [facility] Co de Phone Number [facility] [address] [place] [phone] * (ABNORMAL) Albumin, Random Urine W/Creatinine (09/20/2023 7:23 AM EDT) Creatinine, Urine 211.65 mg/dL [facility] Microalbumin Urine 817.0 mg/L [facility] Microalbum Creatinine Ratio Ur 386.0(H) <30 ug/mg cr [facility] Comment:Albumin/Creatinine R atio Reference Ranges: Normal: < 30 ug/mg creatinine Microalbuminuria: 30 - 300 ug/mg creatinineClinical Albuminuria: > 300 ug/mg creatinine Urine (Urine, Random) 09/20/2023 7:23 AM EDT 09/20/2023 7:41 AM EDT us Gavi Aldana DO LAB URINE ORDERABLES Final R esult Performing Organization Address [facility] Co de Phone Number [facility] [address] [place] [phone] * Hm Colonoscopy (07/28/2021 2:52 PM EST) Historical Provider MD HEALTH MAINTENANCE Final Result from Last 3 Months or Most Recently Relevant to Health Maintenance Insurance D[facility]AL - [facility] Care Teams Customer Care Representative Relationship Specialty Start Date End Date Gavi Aldana DO [address] [place] [phone] PCP - General Family Medicine 06/06/18
--- OUTSIDE RECORDS SUMMARY | 2024-07-30 11:15 | XMS_ITS | Clinical Summary ---
Author Organization [address] [facility] Address [address] [place] [address] Phone Care Team Providers Care Milieu Manager Name Role Phone Kelle Aldanafer Ej [place] Primary Care Provider [phone] Allergies No known active allergies Medications metFORMIN XR (GLUCOPHAGE-XR) 500 mg 24 hr tablet Take 500 mg by mouth 2 times daily. Active glipiZIDE (GLUCOTROL) 5 mg tablet Take 2.5 mg by mouth daily. Active simvastatin (ZOCOR) 20 mg tablet Take 1 tablet (20 mg total) by mouth at bedtime. Active valsartan (DIOVAN) 160 mg tablet Take 160 mg by mouth daily. Active carvediloL (COREG) 25 mg tablet Take 25 mg by mouth 2 times daily (with meals). Active spironolactone (ALDACTONE) 25 mg tablet Take 25 mg by mouth daily. Active furosemide (LASIX) 40 mg tablet Take 40 mg by mouth daily. Active digoxin (LANOXIN) 250 mcg (0.25 mg) tablet Take 250 mcg by mouth daily. Active aspirin 81 mg EC tablet Take 81 mg by mouth daily. Active loratadine 10 mg capsule Take by mouth. Active fluticasone propionate (FLONASE) 50 mcg/actuation nasal spray 2 Sprays by Each Nare route daily. Active medical supply, miscellaneous (MISCELLANEOUS MEDICAL SUPPLY MISC) Insulin Glargine (LANTUS SC) Active diclofenac (Voltaren Arthritis Pain) 1 % topical gel Apply 4 g topically 2 (two) times a day. 240 g 1 5 09/01/19 25 Active clotrimazole (LOTRIMIN) 1 % cream Apply topically 2 (two) times a day. 30 g 3 5 08/01/19 25 Active Active Problems Problem Noted Date Diagnosed Date DM type 2 (diabetes mellitus, type 2) 07/28/2011 Hyperlipidemia with target LDL less than 70 07/08 Overview (05/02/2024): IMO update Hypertension 07/28/2011 Non-ischemic cardiomyopathy 07/28/2011 Encounters Date Type Department Care Team Description 07/02/2024 9:00 AM EST Office Visit Orthopedic Surgery [facility] [address] [phone] Kota De La Torre DPM Primary osteoarthritis of both feet (Primary Dx); Dermatophytosis of nail; Pain in toe of right foot; Tinea pedis of both feet; Pain in toe of left foot; Diabetic mononeuropathy simplex (CMS/HCC); Type II diabetes mellitus with peripheral circulatory disorder (CMS/HCC) from Last 3 Months Social History Tobacco Use Types Packs/Day Years Used Date Smoking Tobacco: Never Assessed Comments Unknown Sex and Gender Information Value Date Recorded Sex Assigned at Not on file Legal Sex Female 12:57 PM EST Gender Identity Not on file Sexual Orientation Not on file Last Filed Vital Signs Vital Sign Reading Time Taken Comments Blood Pressure - - Pulse - - Temperature - - Respiratory Rate - - Oxygen Saturation - - Inhaled Oxygen Concentration - - Weight 68 kg (150 lb) 07/02/2024 8:52 AM EST Height 149.9 cm (4' 11.02 ) 07/02/2024 8:[address] Body Mass Index 30.28 07/02/2024 8:52 AM EST Plan of Treatment Upcoming Encounters Date Type Department Care Team (Late st Contact Info) Description 08/09/2024 11:00 AM EST Consult Vascular Surgery - [place] [address] [place] [phone] Jerrica Norton PA [address] [place] [address] 10/01/2024 9:00 AM EDT Office Visit Orthopedic Surgery [facility] 250 [address] [facility] [address] [place] [phone] Kota De La Torre DPM [address] [facility] [address] [place] [address] Health Maintenance Due Date Last Done Comments Diabetes: Annual Foot Exam 1960 Diabetes: Annual Retina Eye Exam 1960 COVID-19 Vaccine (3 - Pfizer risk series) 08/11/2021 07/14/2021, 06/23/2021 RSV Immunization Patients 60+ Years Old (1 - 1-dose 75+ series) 11/24/2023 Colorectal Cancer Screening: Colonoscopy 04/07/2024 Diabetes: Annual Urine Albumin-Creatinine Ratio (uACR) 04/07/2024 Falls Risk Assessment 04/07/2024 Hepatitis C Screening 04/07/2024 Osteoporosis Screening (Bone Density Screening) 04/07/2024 Social Influencers of Health Screening 04/07/2024 Depression Screening 06/15/2024 06/15/2023 Diabetes: Blood Sugar Control Test (HGBA1C) 11/26/2024 05/28/2024 Diabetes: Annual GFR (Glomerular Filtration Rate) 05/09/2025 05/09/2024 Hypertension/CHF/CAD Annual BMP Blood Test 05/09/2025 05/09/2024 Cholesterol Screening (Lipid Panel) 09/19/2028 09/20/2023 DTaP,Tdap,and Td Vaccines (3 - Td or Tdap) 02/10/2031 02/10/2021, 05/21/2010 Hepatitis B Vaccines Completed 01/15/2015, 08/07/2014, 07/10/2014 Pneumococcal Vaccine: 50+ Years Completed 01/05/2023, 11/20/2015, 10/15/2014, Additional history exists Zoster Vaccines Completed 07/20/2023, 12/04, 08/07/2014 Influenza Vaccine Completed 02/28/2024, , 03/01/2022, Additional history exists HIB Vaccines Aged Out No longer eligi [...] on patient's age to complete this topic MMR Vaccines Aged Out No longer eligi ble based on patient's age to complete this topic Meningococcal ACWY Vaccine Aged Out N o longer eligible based on patient's age to complete this topic Meningococcal B Vacine Aged Out No lo nger eligible based on patient's age to complete this topic RSV Immunization Patients Under 20 months Aged Out No longer eligible based on patient's age to complete this topic Varicella Vaccines Aged Out No longer eligible based on patient's age to complete this topic Insurance [place] - [place] [facility] Member Subscriber Plan / Payer ( fective 2014-Present) Name:Candi Sanchez E Relation to Subscriber:Self Name:Candi Sanchez Payer ID:[id number] Group ID:[id number] Type:Not on file Address: [address] [place] [phone] Care Teams Milieu Manager Relationship Specialty Start Date End Date Gavi Aldana DO [address] [place] [address] PCP - General Internal Medicine 10/27/11
== END 2024-07-30 10:53 | disposition home or self-care (01) ==
PROVIDERS: PCP Family Medicine; Visit Provider Registered Nurse Diabetes Educator
DX: E10.65 Type 1 diabetes mellitus with hyperglycemia (principal)

== ENCOUNTER → 2024-07-30 10:05 | Outpatient (BNVA) | payer OTHER, SELFPAY | PROVIDERS: PCP Family Medicine; Visit Provider Registered Nurse Diabetes Educator | DX: E10.65 Type 1 diabetes mellitus with hyperglycemia (principal); Z79.4 Long term (current) use of insulin | CPT/HCPCS: 99211 ==

== ENCOUNTER 2024-08-15 09:38 | Outpatient (REF) | payer OTHER, SELFPAY ==
--- OUTSIDE RECORDS SUMMARY | 2024-08-15 10:32 | XMS_ITS | Encounter Summary ---
Author Organization [employer] [facility] Address [address] [place] [address] [address] [place] [address] Care Team Providers Care Gas Dispenser Name Role Phone Gavi Aldana DO Primary Care Provider + [phone] Encounter Details Date Type Department Care Team (Latest Contact Info) Description 03/10/2022 Abstract [facility] CONVERSIONS Dental, Provider, DDS Social [...] 9:00 AM EDT Office Visit [facility] ADULT DENTAL [address] [place] [address] José Miguel Sy DDS [address] [place] [address] documented as of this encounter Visit Diagnoses Not on filedocumented in this encounter Care Teams Gas Dispenser Relationship Specialty Start Date End Date Gavi Aldana DO [address] [place] [address] PCP - General Family Medicine 06/06/18 documented as of this encounter
--- OUTSIDE RECORDS SUMMARY | 2024-08-15 10:32 | XMS_ITS | Encounter Summary ---
Author Organization [facility] Address [address] [place] [address] [address] [place] [address] Care Team Providers Care Thermoscrew Operator Name Role Phone Gavi Aldana DO Primary Care Provider + [phone] Encounter Details Date Type Department Care Team (Latest Contact Info) Description 09/25/2018 Abstract [facility] CONVERSIONS Dental, Provider, DDS Social History Tobacco [...] 08/28/2024 9:00 AM EDT Office Visit [facility] ADULT DENTAL [address] [place] [address] José Miguel Sy DDS [address] [place] [address] documented as of this encounter Visit Diagnoses Not on filedocumented in this encounter Care Teams Thermoscrew Operator Relationship Specialty Start Date End Date Gavi Aldana DO [address] [place] [address] PCP - General Family Medicine 06/06/18 documented as of this encounter
--- OUTSIDE RECORDS SUMMARY | 2024-08-15 10:33 | XMS_ITS | Clinical Summary ---
Author Organization [employer] Address [address] [place] [address] 7t [place] [address] Care Team Providers Care Shirt Sewer Name Role Phone Gavi Aldana DO Primary Care Provider + [phone] Allergies Active Allergy Reactions Criticality Noted Date Comments Luis A Inhibitors Cough,Hives 08/10/2010 Medications Skin Protectants, Misc. (Minerin Creme) creamIndicati ons:Dry skin APPLY TO DRY SKIN 2 TO 3 TIMES PER DAY 454 g 4 023 Active Skin Protectants, Misc. (eucerin) cream apply topically to dry skin 2-3times a day 022 Active benzonatate (Tessalon) 100 MG capsule TAKE 1 CAPSULE BY MOUTH THREE TIMES DAILY NEEDED FOR COUGH 30 capsule 023 Active Nystop 582109 UNIT/GM powder APPLY TO THE AFFECTED AREA(S) TWICE DAILY 60 g 5 023 Active TRUEplus Glucose On The Go 4 g chewable tablet CHEW 2 TO 4 TABLETS NEEDED FOR LOW BLOOD SUGAR 023 Active Eliquis 5 MG tablet Take 5 mg by mouth 2 times daily. 023 Active atorvastatin (Lipitor) 10 MG tablet Take 10 mg by mouth in the morning. 023 Active digoxin (Lanoxin) 125 MCG tablet Take 125 mcg by mouth in the morning. 023 Active FeroSul 325 (65 Fe) MG tablet Take 1 tablet by mouth in the morning. 023 Active furosemide (Lasix) 20 MG tablet 023 Active FREESTYLE LITE test strip TEST BLOOD SUGAR FOUR TIMES DAILY 023 Active NovoLOG FLEXPEN 100 UNIT/ML pen INJECT 3-6 UNITS SUBCUTANEOUSLY THREE TIMES DAILY Active Lantus SoloStar 100 UNIT/ML pen 023 Active BD Pen Needle Thania U/F 32G X 4 MM misc USE DIRECTED FOUR TIMES DAILY Active TRUEplus Lancets 33G misc TEST BLOOD SUGAR THREE OR FOUR TIMES DAILY Active methotrexate 2.5 MG tablet TAKE 8 TABLETS BY MOUTH ONCE WEEK Active metoprolol tartrate (Lopressor) 100 MG tablet Take 100 mg by mouth with breakfast and with evening meal. Active Entresto 49-51 MG tablet Take 1 tablet by mouth 2 times daily. Active spironolacton e (Aldactone) 25 MG tablet Take 25 mg by mouth in the morning. 023 Active gabapentin (Neurontin) 100 MG capsuleIndica tions:Other chronic pain TAKE 2 CAPSULES BY MOUTH EVERY EVENING 60 capsule 1 023 Active UltiCare Short Pen Cameron 31G X 8 MM misc USE DIRECTED FOUR TIMES DAILY Active fexofenadine (Barbara) 180 MG tablet Take 1 tablet (180 mg) by mouth if needed each day (Allergies). 30 tablet 11 023 Active omeprazole (PriLOSEC) [address] capsule Take 1 capsule (40 mg) by mouth before breakfast and before evening meal. 60 capsule 11 023 Active Breo Ellipta 200-25 MCG/ACT aerosol powder INHALE 1 PUFF BY MOUTH EVERY DAY AT THE SAME TIME 023 Active folic acid (Folvite) 1 MG tablet Take 1,000 mcg by mouth in the morning. 023 Active clotrimazole (Lotrimin) 1 % cream APPLY TO THE AFFECTED AREA(S) AND SURROUNDING AREA(S) TOPICALLY TWICE DAILY IN THE MORNING AND IN THE EVENING 60 g 2 024 Active cholecalcifer ol (Vitamin D-3) 50 MCG (1999) capsule Take 1 capsule (50 mcg) by mouth Once per day. 30 capsule 11 024 Active melatonin 5 MG tablet TAKE 1 OR 2 TABLETS BY MOUTH AT BEDTIME NEEDED FOR SLEEP 60 tablet 3 06/27/2 024 Active acetaminophen (Tylenol 8 Hour) 650 MG ER tablet TAKE 1 TABLET BY MOUTH EVERY 8 HOURS NEEDED FOR MILD PAIN 30 tablet Active amitriptyline (Elavil) 10 MG tablet Take 0.5 tablets (5 mg) by mouth at bedtime. 15 tablet 3 024 2024 Active glucose 4 g chewable tablet CHEW 2 TO 4 TABLETS BY MOUTH NEEDED FOR LOW BLOOD SUGAR 30 tablet 5 Active lidocaine (Lidoderm) 5 % patchIndicati ons:Acute pain of right shoulder Apply 1 patch topically Once per day. Remove & discard patch after 12 hours. 30 patch Active ibuprofen 600 MG tabletIndicat ions:Acute pain of right shoulder Take 1 tablet (600 mg) by mouth 3 times daily for 14 days. 42 tablet 025 2024 Active baclofen (Lioresal) 10 MG tabletIndicat ions:Acute pain of right shoulder Take one tablet TID PRN 42 tablet Active baclofen (Lioresal) 10 MG tablet Take 10 mg by mouth if needed in the morning, at noon, and at bedtime. 022 2024 Discontinued(M ed list cleanup (will not trigger notification to Pharmacy)) Active Problems Problem Noted Date Diagnosed Date [...] reports she was exposed to Covid-19 at [employer] but she always wears a mask Physical exam wnl Rapid strep, Covid and Flu negative Plan: supportive measures, recommended Tylenol prn, pt to test at home if symptoms do not improve or worsen and notify us if positive or worsening of symptoms Pt verbalized understanding Encounters Date Type Department Care Team Description 08/15/2024 8:40 AM EDT Office Visit [facility] [address] [place] [phone] Acute pain of right shoulder (Primary Dx) 07/17/2024 Orders Only GENERIC EXTERNAL DATA DEPARTMENT Provider, Generic External Data 07/11/2024 8:00 AM EST Office Visit [facility] [address] [place] [phone] José Miguel Sy DDS Dental caries into pulp (Primary Dx) 07/04/2024 9:00 AM EST Office Visit [facility] [address] [place] [phone] Laura Dow Dental caries into pulp (Primary Dx); Dental calculus; Localized gingival recession; Dental caries; Missing teeth, acquired; Chronic dental pain 06/18/2024 9:30 AM EST Clinical Support [facility] [address] [place] [address] [phone] Christine Spencer RN Forgetfulness 06/18/2024 Travel 06/01/[address] [address] Gavi Aldana DO 05/28/2024 9:45 AM EST Office Visit [address] [address] [place]csak, Gavi, DO Type 1 diabetes mellitus without complication ([facility]/HCC) (Primary Dx); Essential hypertension; Other hyperlipidemia; Nonischemic cardiomyopathy (CMS/HCC); Immune thrombocytopenic purpura (CMS/HCC); Seropositive rheumatoid arthritis (CMS/HCC); Chronic pain of both shoulders; Pulmonary nodules; Multiple thyroid nodules; Chronic cough; Abnormal CT of the chest; Nocturnal headaches; Sleep-disordered breathing; Forgetfulness; Healthcare maintenance 05/28/2024 Travel from Last 3 Months Immunizations Name Administration [...] Sign Reading Time Taken Comments Blood Pressure 140/76 08/15/2024 8:51 AM EDT Pulse 90 08/15/2024 8:51 AM EDT Temperature 36.7 ??C (98 ??F) 08/15/2024 8:51 AM EDT Respiratory Rate 16 08/15/2024 8:51 AM EDT Oxygen Saturation 98% 08/15/2024 8:51 AM EDT Inhaled Oxygen Concentration - - Weight 61.2 kg (135 lb) 08/15/2024 8:51 AM EDT Height 149.9 cm (4' 11 ) 05/28/2024 9:21 AM EST Body Mass Index 27.27 05/28/2024 9:21 AM EST Plan of Treatment Upcoming Encounters Date Type Department Care Team (Late st Contact Info) Description 08/28/2024 9:00 AM EDT Office Visit [facility] [address] [place] [address] José Miguel Sy, DDS [address] [place] [address] Health Maintenance Due Date Last Done Comments CT Colonography 1948 FIT DNA/Cologuard 1948 FIT 1948 FOBT 1948 Sigmoidoscopy 1948 Diabetes: Foot Exam 1958 Eye Exam 1958 Dental Prophylaxis 09/09/2022 03/10/2022, 0 09/25/2018, 11/16/2017, Additional history exists RSV Patients and Patients Aged 60 years or older (1 - 1-dose 75+ series) 11/24/2023 COVID-19 Vaccine ( - 2023- season) 2024 07/14/2021, 06/23/2021 Depression [...] 03/10/2022, 11/16/2017, Additional history exists Tobacco Screening 08/15/2025 08/15/2024 DTaP/Tdap/Td Vaccines (3 - Td or Tdap) [...] Type 1 diabetes mellitus without complication (CMS/HCC) HEPATITIS PANEL, GENERAL Routine 05/09/2024 9:54 AM EST LIPID PANEL, STANDARD Routine 09/20/2023 7:27 AM EDT Type 2 diabetes mellitus without complication, with long-term current use of insulin (CMS/HCC) ALBUMIN, RANDOM URINE W/CREATININE Routine 09/20/2023 7:23 AM EDT Type 2 diabetes mellitus without complication, with long-term current use of insulin (CMS/HCC) PROPHYLAXIS - ADULT Routine 03/10/2022 1 2:00 AM EDT INTRAORAL - COMPLETE SERIES OF RADIOGRAPHIC IMAGES Routine 03/10/2022 12:00 AM EDT HM COLONOSCOPY Routine 07/28/2021 2:52 PM EST from Last 3 Months or Most Recently Relevant to Health Maintenance Results * (ABNORMAL) Glucose, Whole Blood (07/17/2024 9:33 AM EST) Glucose, Whole Blood 287(H) 60 - 115 mg/dL [facility] Comment:METER #: [id number] 5Testing performed in the Endocrinology Department [address] , [address], [facility]. 07/17/2024 9:33 AM EST 07/17/2024 9:38 AM EST Generic External Data Provider LAB BLOOD ORDERAB LES Final Result [facility] [address] [place] [phone] * (ABNORMAL) POCT HGB A1C (05/28/2024 9:23 AM EST) Hemoglobin A1C 10.2(A) 4.0 - 6.0 % QC Media Lot # [id number] Lot# Expiration Date Blood 05/28/2024 9:23 AM EST Gavi Jovan DO POINT OF CARE TEST ENTER/DIAMANTE T ORDERABLES Final Result * POCT Glucose (05/28/2024 9:22 AM EST) Glucose Blood, POC 149 60 - 200 mg/dL QC Media Lot # [id number] Lot# Expiration Date ,025 Blood Capillary blood specimen / Unknown 05/28/2024 9:22 AM EST Gavi Jovan DO POINT OF CARE TEST ENTER/DIAMANTE T ORDERABLES Final Result * Hepatitis Panel, General (05/09/2024 9:54 AM EST) Hepatitis A IgM Nonreactive Nonreactive [facility] Comment:IgM antibodies to MCCANN V not detected; does not exclude earlyacute or recovered HAV infection. ~Hepatitis B Surface Antibody REACTIVE Nonreactive [facility] Comment:REACTIVE: > 11.99 mI U/mL Hepatitis B Core Antibody Nonreactive Nonreactive [facility] Hepatitis C Antibody Nonreactive Nonreactive [facility] Comment:Antibodies to HCV no t detected; does not exclude early acuteHCV infection. Hepatitis B Surface Ag Negative Negative [facility] 05/09/2024 9:54 AM EST 05/09/2024 9:54 AM EST us Generic External Data Provider LAB BLOOD ORDERAB LES Final Result Performing Organization Address [facility] Co de Phone Number [facility] [address] [place] [phone] * Lipid Panel, Standard (09/20/2023 7:27 AM EDT) Triglycerides 96 <150 mg/dL [facility] Comment:Desirable Triglyceri de: less than 150 mg/dLBorderline High Triglyceride 150-199 mg/dLHigh Triglyceride: 200-499 mg/dLVery High Triglyceride: greater than or equal to 5OO mg/dL Cholesterol 139 <200 mg/dL [facility] Comment:Desirable Cholestero l: less than 200 mg/dLBorderline High Cholesterol: 200-239 mg/dLHigh Cholesterol: greater than 239 mg/dL LDL Cholesterol Calculated 69 <100 mg/dL [facility] Comment:Desirable LDL: less than 100 mg/dLNear Optimal/Above Optimal LDL: 110- 129 mg/dLBorderline High LDL: 130-159 mg/dLHigh LDL: 160-189 mg/dLVery High LDL: greater than or equal to 190 mg/dL HDL Cholesterol 51 >40 mg/dL [facility] Comment:Desirable HDL: great er than 40 mg/dL Note: This HDL assay may give artificially low results in patients with liver disease. Blood Venous blood specimen / Unknown 09/20/2023 7:27 AM EDT 09/20/2023 7:27 AM EDT us Gavi Aldana DO LAB BLOOD ORDERABLES Final R esult Performing Organization Address [facility]/ZIP Co de Phone Number [facility] [address] [place] [phone] * (ABNORMAL) Albumin, Random Urine W/Creatinine (09/20/2023 7:23 AM EDT) Creatinine, Urine 211.65 mg/dL [facility] Microalbumin Urine 817.0 mg/L [facility] Microalbum Creatinine Ratio Ur 386.0(H) <30 ug/mg cr [facility] Comment:Albumin/Creatinine R atio Reference Ranges: Normal: < 30 ug/mg creatinine Microalbuminuria: 30 - 300 ug/mg creatinineClinical Albuminuria: > 300 ug/mg creatinine Urine (Urine, Random) 09/20/2023 7:23 AM EDT 09/20/2023 7:41 AM EDT Gavi Aldana DO LAB URINE ORDERABLES Final R esult Performing Organization Address City/State/[facility] Co de Phone Number [facility] [address] [place] [phone] [phone] * Colonoscopy (07/28/2021 2:52 PM EST) Historical Provider HEALTH MAINTENANCE Final Result from Last 3 Months or Most Recently Relevant to Health Maintenance Insurance [address] [address] [facility] - [facility] [address] [place] [phone] [place] [phone] Care Teams Shirt Sewer Relationship Specialty Start Date End Date Gavi Aldana DO [address] [place] [address] PCP - General Family Medicine 06/06/18
--- OUTSIDE RECORDS SUMMARY | 2024-08-15 10:33 | XMS_ITS | Encounter Summary ---
Author Organization [employer] Address [address] [facility] 7t [place] [address] Care Team Providers Care Coffee Roaster Name Role Phone Gavi Aldana DO Primary Care Provider + [phone] Encounter Details Date Type Department Care Team ([facility] st Contact Info) Description 07/17/2024 [...] 9:00 AM EDT Office Visit [facility] [address] [place], [place] [phone] José Miguel Sy DDS [address] [place], [place] [phone] documented as of this encounter Procedures Procedure Name Priority Date/Time Associated Diagnosis Comments GLUCOSE, WHOLE BLOOD Routine 07/17/2024 9:33 AM EST documented in this encounter Results * (ABNORMAL) Glucose, Whole Blood (07/17/2024 9:33 AM EST) Glucose, Whole Blood 287(H) 60 - 115 mg/dL [facility] Comment:METER #: [id number] 5Testing performed in the Endocrinology Department [address] , [address], [facility]. 07/17/2024 9:33 AM EST 07/17/2024 9:38 AM EST us Generic External Data Provider LAB BLOOD ORDERAB LES Final Result [facility] [address] [place] [address] [phone] documented in this encounter Visit Diagnoses Not on filedocumented in this encounter Additional Health Concerns Assessment Noted Time PHQ-9 Depression Total Score: 1 06/15/19 24 10:29 AM EST documented as of this encounter Care Teams Coffee Roaster Relationship Specialty Start Date End Date Gavi Aldana DO [address] [place] [address] PCP - General Family Medicine 06/06/18 documented as of this encounter
--- OUTSIDE RECORDS SUMMARY | 2024-08-15 10:33 | XMS_ITS | Encounter Summary ---
Author Organization [facility] Address [address] [place] [address] 7t [place] [address] Care Team Providers Care Restaurant Hospitality Manager Name Role Phone Gavi Aldana DO Primary Care Provider + [phone] Reason for Visit * Reason Comments Med Refill Encounter Details Date Type Department Care Team (Late Contact Info) Description 10/11/2022 Refill [facility] [address] [place] [address] Gavi Aldana DO [address] [place] [address] Other chronic pain Social History Tobacco Use [...] Description 08/28/2024 9:00 AM EDT Office Visit [facility] [address] [place] [address] José Miguel Sy DDS [address] [place] [address] documented as of this encounter Visit Diagnoses Diagnosis Other chronic pain documented in this encounter Care Teams Restaurant Hospitality Manager Relationship Specialty Start Date End Date Gavi Aldana DO [address] [place] [address] PCP - General Family Medicine 06/06/18 documented as of this encounter
--- OUTSIDE RECORDS SUMMARY | 2024-08-15 10:33 | XMS_ITS | Encounter Summary ---
Author Organization [facility] Address [address] [facility] 7t [place] [address] Care Team Providers Care Heavy Rail Train Operator Name Role Phone JovanGavi Primary Care Provider + [phone] Reason for Referral * Medications - Closed Specialty Diagnoses / Procedures Referred By Humphrey barrera Referred To Contact Diagnoses Acute pain of right shoulder Veena White NP [address] [place] [address] Phone: tel: fax: Referral ID Status Reason Start Date Expiration Date Visits Re quested Visits Authorized [id number] Closed 08/15/2024 08/15/2025 1 1 Reason for Visit * Reason Comments Back Pain Encounter Details Date Type Department Care Team (Late st Contact Info) Description 08/15/2024 8:40 AM EDT Office Visit [facility] [address] [place], [place] [phone] Acute pain of right shoulder (Primary Dx) Social History Tobacco Use Types [...] the past 12 months, has t he [employer], gas, oil or water company threatened to [...] (135 lb) 08/15/2024 8:51 AM EDT Height - - Body Mass Index 27.27 05/28/2024 9:21 AM EST documented in this encounter Plan of Treatment Upcoming Encounters Date Type Department Care Team (Late st Contact Info) Description 08/28/2024 9:00 AM EDT Office Visit [facility] [address] [place] [address] José Miguel Sy DDS [address] [place] [address] documented as of this encounter Visit Diagnoses Diagnosis Acute pain of right shoulder- Primary documented in this encounter Additional Health Concerns Assessment Noted Time PHQ-9 Depression Total Score: 1 06/15/19 24 10:29 AM EST documented as of this encounter Care Teams Heavy Rail Train Operator Relationship Specialty Start Date End Date Gavi Aldana DO [address] [place] [address] PCP - General Family Medicine 06/06/18 documented as of this encounter
--- OUTSIDE RECORDS SUMMARY | 2024-08-15 10:33 | XMS_ITS | Clinical Summary ---
Author Organization [facility] Address [address] [place] [address] Phone Care Team Providers Care Char Dust Cleaner And Salvager Name Role Phone Kelle Aldanafer Agata [place] Primary Care Provider [phone] Allergies No known active allergies Medications metFORMIN [...] 30 g 3 5 08/01/19 25 Active Problems Problem Noted Date Diagnosed Date DM type 2 (diabetes mellitus, type 2) 07/28/2011 Hyperlipidemia with target LDL less than 70 07/08 Overview (05/02/2024): IMO update Hypertension 07/28/2011 Non-ischemic cardiomyopathy 07/28/2011 Encounters Date Type Department Care Team Description 07/02/2024 9:00 AM EST Office Visit [facility] [address] [phone] Kota De La Torre DPM Primary osteoarthritis [...] Care Team (Late st Contact Info) Description 09/27/2024 11:00 AM EDT Consult Vascular [place] [address] [place] [phone] Tiffanie Holbrook MD [address] [facility] [address] [place] [address] 10/01/2024 9:00 AM EDT Office Visit [facility]opedic [facility] 250 175 [facility] [address] [place] [phone] Kota De La Torre DPM [address] [facility] [address] [place] [address] Health Maintenance Due Date Last Done Comments [...] complete this topic Insurance [place]ICAID - [place] [facility] Member Subscriber Plan / Payer (Ef fective 2014-Present) Name:Candi Sanchez E Relation to Subscriber:Self Name:Candi Sanchez Payer ID:[id number] Group ID:[id number] Type:Not on file Address: [address] [place] [address] Care Teams Char Dust Cleaner And Salvager Relationship Specialty Start Date End Date Gavi Aldana DO [address] [place], [place] PCP - General Internal Medicine 10/27/11
--- OUTSIDE RECORDS SUMMARY | 2024-08-15 10:33 | XMS_ITS | Data Portability ---
Author Organization [place] - [facility], Allergy Address [address] [facility] [address] [place] [address] Care Team Providers Care Silver Spray Worker Name Role Phone MARTINEZ VIZCARRA Primary Care [...] copy of the audiogram, a list of [facility] hearing aid providers, and medical clearance [...] Organization Details Recorded Time Dizziness and giddiness 410368920 Active 2018 Dizziness and giddiness ; Note: Date Diagnosed : 01/25/2019 11:02 AM (R42) Not Available [facility] 4 02:39:47 Impacted cerumen of bilateral ears 17701379251 36685 Active 2018 Impacted cerumen, bilateral ; Note: Date Diagnosed : 01/25/2019 11:05 AM (H61.23) Not Available [facility] 4 02:39:43 Bilateral tinnitus 05457527383 02 Active 2018 Tinnitus, bilateral ; Note: Date Diagnosed : 01/25/2019 11:24 AM (H93.13) Not Available [facility] 4 02:39:43 Cough 70691798 Active 2020 Cough, unspecifi ed; Note: Changed from R05 to R05.9 ( 4 9:23 AM) , Date Diagnosed : 02/11/2021 10:17 AM (R05) WYATT NAVA MD [address] [place] [address], [phone] , [facility] - [facility] 4 10:02:57 Benign paroxysma l positiona l vertigo 606405153 Active 2018 Benign paroxysma l vertigo, unspecifi ed ear; Note: Date Diagnosed : 01/25/2019 11:03 AM (H81.10) Not Available [facility] 4 02:39:53 Sensorine ural hearing loss of bilateral ears 836048454 Active 2018 Sensorine ural hearing loss, bilateral ; Note: Date Diagnosed : 01/25/2019 11:24 AM (H90.3) Not Available [facility] 4 02:39:48 Gastroeso phageal reflux disease without esophagit is 793220040 Active 2023 Gastro-es ophageal reflux disease without esophagit is; Note: Date Diagnosed : 08/25/2023 10:32 AM (K21.9) Not Available [facility] 02:39:48 Allergic rhinitis 44175900 Active 2023 Allergic rhinitis, unspecifi ed; Note: Date Diagnosed : 08/01/2023 10:25 AM (J30.9) Not Available [facility] 02:39:50 Nasal congestio n 22577970 Active 2023 Nasal congestio n; Note: Date Diagnosed : 08/01/2023 10:25 AM (R09.81) Not Available [facility] 02:39:53 Problem Notes None recorded. Procedures Surgical History Date Name Laterality Status Provider Name and Address Organization Details Recorded Time 07/30/19 25 Wax_DP completed WYATT NAVA MD [address] [place] [address], [phone], [facility] 07/30/2024 08:53:51 07/30/19 25 Air only Audio (22866) completed Nupur DIOP [address] [place] [address], [phone], [facility] 07/30/2024 09:17:09 07/30/19 25 Tympanometry (02669) completed Nupur DIOP [address] [place] [address], [phone], [facility] 07/30/2024 09:17:15 Imaging Results Imaging Date [...] mg tablet 04/27 completed Medicati on ID: [id number] B rand Name: atorvast atin Sen d Method: E-Prescr ibed Sub s Allowed: subs OK Speci al Instruct ion: TOME PRAVEEN TABLETA TODOS LOS D AL ACOSTARS E Medica tionGene ricName: atorvast atin Not Available Not Available Not Available Vitamin C 500 mg tablet active Medicati on ID: [id number] B rand Name: Vitamin C Send Method: [...] layed release 02/11 completed Medicati on ID: [id number] D uration Value: 90 Brand Name: aspirin Send Method: E-Prescr ibed Sub s Allowed: subs OK Speci al Instruct ion: TOME PRAVEEN TABLETA POR V?A ORAL TODOS LOS D? Med icationG enericNa me: aspirin Not Available Not Available Not Available tramadol 50 mg tablet active Medicati on ID: [id number] B rand Name: tramadol Send Method: E-Prescr ibed Sub s Allowed: subs OK Medic ationGen ericName : tramadol Not Available Not Available Not Available spironola ctone 25 mg tablet active Medicati on ID: [id number] B rand Name: spironol actone S end [...] 10 mg tablet active Medicati on ID: [id number] B rand Name: baclofen Send Method: E-Prescr ibed Sub s Allowed: subs OK Speci al Instruct ion: TAKE 1 TABLET BY MOUTH 3 TIMES EVERY DAY NEEDED FOR MUSCLE SPASM/PA IN [facility] ericName : baclofen Not Available Not Available Not Available benzonata te 100 mg capsule TAKE 1 CAPSULE BY MOUTH THREE TIMES DAILY NEEDED FOR COUGH active Not Available Not Available No t Available pantopraz ole 40 mg tablet,de layed release active Medicati on ID: [id number] B rand Name: pantopra zole Sen d Method: E-Prescr ibed Sub s Allowed: subs OK [facility] ericName : pantopra zole Not Available Not Available Not Available ferrous sulfate 325 mg (65 mg iron) tablet 04/27 completed Medicati on ID: [id number] B rand Name: ferrous sulfate Send Method: [...] mg tablet 02/11 completed Medicati on ID: [id number] D uration Value: 90 Brand Name: metoprol [...] (0.125 mg) tablet active Medicati on ID: [id number] B rand Name: digoxin Send Method: E-Prescr [...] mg capsule 02/11 completed Medicati on ID: [id number] B rand Name: gabapent in Send Method: E-Prescr ibed Sub s Allowed: subs OK Medic ationGen ericName : gabapent in Not Available Not Available Not Available Novolog U-100 Insulin aspart 100 unit/mL subcutane ous solution active Medicati on ID: [id number] B rand Name: Novolog U-100 Insulin aspart S end Method: E-Prescr ibed Sub s Allowed: subs OK Speci al Instruct ion: UP TO 100 UNITS VIA INSULIN PUMP SUBCUT DAILY Me dication GenericN norma: Novolog U-100 Insulin aspart Not Available Not Available Not Available nystatin 100,000 unit/gram topical powder 04/27 completed Medicati on ID: [id number] B rand Name: nystatin Send Method: E-Prescr ibed Sub s Allowed: subs OK Speci al Instruct ion: APLIQUE AL LIAT AFECTADA DOS VECES AL D A Medica tionGene ricName: nystatin Not Available Not Available Not Available albuterol sulfate HFA 90 mcg/actua tion aerosol inhaler 02/11 completed Medicati on ID: [id number] B rand Name: albutero l sulfate Send Method: E-Prescr ibed Sub s Allowed: subs OK Speci al Instruct ion: TOME DOS INHALACI ONES POR V A ORAL CADA CUATRO A SEIS HORAS CUANDO SEA NECESARI O Medica tionGene ricName: albutero l sulfate Not Available Not Available Not Available fluticaso ne propionat e 50 mcg/actua tion nasal spray,lalo pension active Medicati on ID: [id number] B rand Name: fluticas one propiona te Send Method: E-Prescr ibed Sub s Allowed: subs OK Speci al Instruct ion: USE 2 SPRAYS IN EACH NOSTRIL ONCE A DAY NEEDED M khari Sigalaeneric Name: fluticas one propiona te Not Available Not Available Not Available clotrimaz ole 1 % topical cream APPLY TOPICALL Y TWICE DAILY active Not Available Not Available No t Available amoxicill in 875 mg-potass ium clavulana te 125 mg tablet TAKE 1 TABLET BY MOUTH TWICE DAILY 04/27 completed Not Available Not Available Not Available valsartan 40 mg tablet active Medicati on ID: [id number] B rand Name: valsarta n Send Method: [...] mg-50 mg tablet active Medicati on ID: [id number] B rand Name: Senna Plus Sen d [...] Available Pentips Pen Needle 32 gauge x 32 USE DIRECTED FOUR TIMES DAILY active Not Available Not Available No t Available Tresiba FlexTouch U-200 insulin 200 unit/mL (3 mL) subcutane ous pen INJECT 22 UNITS SUBCUTAN EOUSLY EVERY DAY active Not Available Not Available No t Available Narcan 4 mg/actuat ion nasal spray active Medicati on ID: [id number] B rand Name: Narcan S end Method: [...] pen injector 02/11 completed Medicati on ID: [id number] D uration Value: 30 Brand Name: Ozempic [...] Available Not Available Not Available Dexcom G7 Recreation Establishment Manager USE DIRECTED active Not Available Not Available [...] Updated DateTime 04/27/2024 149.86 cm 26.7 kg/m2 23062.19 g Susy Vera [place] - [facility] 04/27/2024 09:48:20 Date Recorded Body height Body mass index (BMI) Body weight Provider Name and Address Organization Details Last Updated DateTime 07/30/2024 149.86 cm 26.7 kg/m2 11870.19 g Nash Hammond [place] - [facility] 07/30/2024 08:41:37 Social History None recorded. Functional Status None recorded. Mental Status None recorded. Family History Nothing Reported. Medical History Condition Response Diabetes Y Gynecological HistoryNo gynecological history recorded. Obstetrics History GPAL:G 0 P 0 0 0 0 Past Encounters Encounter ID Performer Location Encounter Start Date Encounter Closed Date Diagnosis/Indication Diagnosis SNOMED-CT Code Diagnosis ICD10 Code Diagnosis Note [id number] WYATT NAVA MD [facility] [address] [address] 04/27/2024 09:29:27 04/27/2024 10:08:17 Cough 99179030 R05.9 Sensorineu ral hearing loss of bilateral ears 977308008 H90.3 [id number] WYATT NAVA MD [facility] [address] [address] 07/30/2024 08:36:37 07/30/2024 09:43:52 Sensorineural hearing loss of bilateral ears 447691112 H90.3 Audiologic al evaluation results: Right ear: [...] seal}} Impacted c erumen of bilateral ears 9017717650 812206 H61.23 Ears were meticulous ly cleaned bilaterall [...] Guarantor Name 04/27/2024 2 [employer] [facility] [place] (MEDICARE [place]PL[place]/ADV ANTAGE - HMO) Candi Sanchez [id number] Candi Sanchez 07/30/2024 1 [facility] - DOS ON OR AFTER 2022 - [employer] (MEDICARE REPLACEMENT/ADV ANTAGE - HMO) Candi Sanchez [id number] Candi Sanchez Notes Date Note Type Note [...] in stomach' took 2 pills. Rx famotidine WYATT NAVA MD [address] [place] [address],[place] [address], [place], [address], [place] [facility] 04/27/2024 10:06:17 07/30/2024 text/html IPad - Spanishhe aring lossdid not pursue hearing aids in past year 08/01/23 Dr Kern audiomild sloping to severe B SNHLcleared for B HAE PV 04/27/24 Iris - cough - improved with meds from pulscotty NAVA MD [address] [place] [address], [place], [address], [facility] - [facility] 07/30/2024 09:42:27 OBGyn Episode No OBEpisode recorded.
--- OUTSIDE RECORDS SUMMARY | 2024-08-15 10:33 | XMS_ITS | Encounter Summary ---
Author Organization [facility] Address [address] [place] [address] 7[address] [place] [address] Care Team Providers Care Nutrition Faculty Member Name Role Phone Gavi Aldana DO Primary Care Provider + [phone] Encounter Details Date Type Department Care Team (Late st Contact Info) Description 07/22/2022 Orders Only [facility] MED & PEDS [address] [place] [address] Gavi Duarte LPN Social History Tobacco Use [...] Description 08/28/2024 9:00 AM EDT Office Visit [facility] ADULT DENTAL [address] [place] [address] José Miguel Sy DDS [address] [place] [address] documented as of this encounter Visit Diagnoses Not on filedocumented in this encounter Care Teams Nutrition Faculty Member Relationship Specialty Start Date End Date Gavi Aldana DO [address] [place] [address] PCP - General Family Medicine 06/06/18 documented as of this encounter
--- OUTSIDE RECORDS SUMMARY | 2024-08-15 10:33 | XMS_ITS | Encounter Summary ---
Author Organization [facility] Address [address] [place] [address] [address] [place] [address] Care Team Providers Care Power Shovel Mechanic Name Role Phone Gavi Aldana DO Primary Care Provider + [phone] Encounter Details Date Type Department Care Team (Late st Contact Info) Description 06/22/2022 Orders Only [facility] MEDICINE [address] [place] [address] Tamara Floyd LPN Social History Tobacco Use [...] Description 08/28/2024 9:00 AM EDT Office Visit [facility] ADULT DENTAL [address] [place] [address] José Miguel Sy DDS [address] [place], [place] [phone] documented as of this encounter Procedures Procedure Name Priority Date/Time Associated Diagnosis Comments GLUCOSE, WHOLE BLOOD Routine 07/06/2022 10:44 AM EST documented in this encounter Results * (ABNORMAL) Glucose, Whole Blood (07/06/2022 10:44 AM EST) Glucose, Whole Blood 204(H) 60 - 115 mg/dL [facility] Comment:METER #: [id number] 5Testing performed in the Endocrinology Department [address] , [address], [facility]. 07/06/2022 10:4 4 AM EST 07/06/2022 10:48 AM EST [facility] External Provider LAB BLO OD ORDERABLES Final Result Performing Organization Address City/State/[facility] Co de Phone Number [facility] [address] [place] [address] [phone] documented in this encounter Visit Diagnoses Not on filedocumented in this encounter Care Teams Power Shovel Mechanic Relationship Specialty Start Date End Date Gavi Aldana DO [address] [place] [address] PCP - General Family Medicine 06/06/18 documented as of this encounter
--- OUTSIDE RECORDS SUMMARY | 2024-08-15 10:33 | XMS_ITS | Encounter Summary ---
Author Organization [employer] Address [address] [facility] [address] [place] [address] Care Team Providers Care Variety Saw Operator Name Role Phone Gavi Aldana DO Primary Care Provider + [phone] Reason for Visit * Reason Comments Med Refill Encounter Details Date Type Department Care Team ([facility] st Contact Info) Description 04/04/2024 Refill [facility] [address] [place] [address] Gavi Aldana DO [address] [place] [address] Social History Tobacco Use Types Packs/Day Years [...] Description 08/28/2024 9:00 AM EDT Office Visit [facility] [address] [place] [address] José Miguel Sy DDS [address] [place] [address] documented as of this encounter Visit Diagnoses Not on filedocumented in this encounter Additional Health Concerns Assessment Noted Time PHQ-9 Depression Total Score: 1 06/15/19 24 10:29 AM EST documented as of this encounter Care Teams Variety Saw Operator Relationship Specialty Start Date End Date Gavi Aldana DO [address] [place] [address] PCP - General Family Medicine 06/06/18 documented as of this encounter
--- OUTSIDE RECORDS SUMMARY | 2024-08-15 10:33 | XMS_ITS | Encounter Summary ---
Author Organization [facility] Address [address] [place] [address] [address] [place] [address] Care Team Providers Care Aprn Name Role Phone Gavi Aldana DO Primary Care Provider + [phone] Encounter Details Date Type Department Care Team (Late st Contact Info) Description 12/14/2022 Orders Only [facility] CH[facility] MED & PEDS [address] [place] [address] Gavi Duarte LPN Social History Tobacco Use [...] [facility] [address] [place] [address] José Miguel Sy DDS [address] [place] [address] documented as of this encounter Visit Diagnoses Not on filedocumented in this encounter Care Teams Aprn Relationship Specialty Start Date End Date Gavi Aldana DO [address] [place] [address] PCP - General Family Medicine 06/06/18 documented as of this encounter
--- OUTSIDE RECORDS SUMMARY | 2024-08-15 10:33 | XMS_ITS | Encounter Summary ---
Author Organization [employer] Address [address] [facility] 7t [place] [address] Care Team Providers Care Napkin Band Wrapper Name Role Phone FlacoGavi humphreys Primary Care Provider + [phone] Encounter Details Date Type Department Care Team (Late st Contact Info) Description 09/14/2023 Orders Only [facility] MEDICINE [address] [place] [address] ProviderMeliton MD Social History Tobacco Use Types [...] is your housing situation today? Not on vla e 06/15/[address] you [...] 08/28/2024 9:00 AM EDT Office Visit [facility] ADULT DENTAL [address] [place], [place] [phone] José Miguel Sy DDS [address] [place], [place] [phone] documented as of this encounter Procedures Procedure [...] documented as of this encounter Care Teams Napkin Band Wrapper Relationship Specialty Start Date End Date Gavi Aldana DO [address] [place] [address] PCP - General Family Medicine 06/06/18 documented as of this encounter
--- OUTSIDE RECORDS SUMMARY | 2024-08-15 10:33 | XMS_ITS | Data Portability ---
Author Organization [facility] Address [address] [place] [address] Assessment Encounter Date Assessment Date Assessment LastModified by Organization Details LastModified Time 03/17/2023 03/17/2023 As noted, we were called to see this patient regarding concerns of cough. Evaluation in the field was performed by my concrete bucket loader colleague, as noted above, I provided real-time [...] SNOMED-CT Code Diagnosis ICD10 Code Diagnosis Note [id number] Amparo Marley MD Main - [address] [address] 03/17/2023 19:40:50 03/17/2023 19:55:52 Health Concerns Section Related Observation LastModified by Organization Detai ls LastModified Time None Recorded Concern Status LastModified by Organization Details LastModified Time None Recorded Advance Directives Directive None Recorded Payers Encounter Date Sequence Insurance Name Policy Number Policy Ivy Covered Member ID Ivy Member ID Guarantor Name 03/17/2023 1 [facility] - DOS ON OR AFTER 2022 - DUAL ELIGIBLE - [employer] OPTIONS AND [employer] (MEDICARE REPLACEMENT/ADV ANTAGE - HMO) Candi Sanchez [id number] Candi Sanchez Notes Date Note Type Note [...] CRC RN DID NOT NEED FURTHER INFO [facility] HPI: 3 weeks, sore throat throughout, cough throughout. dry cough. has never had something like this before. some sour taste, depending on what she ate. no abdominal, a little epigastric burning. Saw provider, got tessalon perles, initially helpful but then. 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 Amparo Marley MD [address] [facility],[address], [place], [address], [facility] 03/17/2023 19:55:51 OBGyn Episode No OBEpisode recorded.
--- OUTSIDE RECORDS SUMMARY | 2024-08-15 10:33 | XMS_ITS | Continuity of Care Document ---
Author Organization [place] - [facility], [facility] Address [address] [place] [address] Care Team Providers Care Shellfish Dredge Operator Name Role Phone MARTINEZ VIZCARRA Primary Care [...] copy of the audiogram, a list of [facility] hearing aid providers, and medical clearance [...] Organization Details Recorded Time Dizziness and giddiness 793612150 Active 2018 Dizziness and giddiness ; Note: Date Diagnosed : 01/25/2019 11:02 AM (R42) Not Available [facility] 4 02:39:47 Impacted cerumen of bilateral ears [id number] 87768 Active 2018 Impacted cerumen, bilateral ; Note: Date Diagnosed : 01/25/2019 11:05 AM (H61.23) Not Available [facility] 4 02:39:43 Bilateral tinnitus [id number] 02 Active 2018 Tinnitus, bilateral ; Note: Date Diagnosed : 01/25/2019 11:24 AM (H93.13) Not Available [facility] 4 02:39:43 Cough 31189686 Active 2020 Cough, unspecifi ed; Note: Changed from R05 to R05.9 ( 4 9:23 AM) , Date Diagnosed : 02/11/2021 10:17 AM (R05) WYATT NAVA MD [address] [place] [address], [place], [address] [facility] 4 10:02:57 Benign paroxysma l positiona l vertigo 759732813 Active 2018 Benign paroxysma l vertigo, unspecifi ed ear; Note: Date Diagnosed : 01/25/2019 11:03 AM (H81.10) Not Available [facility] 4 02:39:53 Sensorine ural hearing loss of bilateral ears 634740132 Active 2018 Sensorine ural hearing loss, bilateral ; Note: Date Diagnosed : 01/25/2019 11:24 AM (H90.3) Not Available [facility] 4 02:39:48 Gastroeso phageal reflux disease without esophagit is 396215679 Active 2023 Gastro-es ophageal reflux disease without esophagit is; Note: Date Diagnosed : 08/25/2023 10:32 AM (K21.9) Not Available [facility] 4 02:39:48 Allergic rhinitis 12750428 Active 2023 Allergic rhinitis, unspecifi ed; Note: Date Diagnosed : 08/01/2023 10:25 AM (J30.9) [facility] 02:[facility] Nasal congestio n 03944044 Active 2023 Nasal congestio n; Note: Date Diagnosed : 08/01/2023 10:25 AM (R09.81) Not Available [facility] 02:39:53 Problem Notes None recorded. Procedures Surgical History Date Name Laterality Status Provider Name and Address Organization Details Recorded Time 07/30/19 Wax_DP completed WYATT NAVA MD [address] [facility],[address], [address], [facility] - [facility] 07/30/2024 08:53:51 07/30/19 Air only Audio (02443) completed Nupur DIOP [address] [place] [address],[address], [address], [facility] - [facility] 07/30/2024 09:17:09 07/30/19 25 Tympanometry (74033) completed Nupur DIOP [address] [place] [address],[address], [address], [facility] - [facility] 07/30/2024 09:17:15 Imaging Results None recorded. [...] mg tablet 04/27 completed Medicati on ID: [id number] B rand Name: atorvast atin Sen d Method: E-Prescr ibed Sub s Allowed: subs OK Speci al Instruct ion: TOME PRAVEEN TABLETA TODOS LOS D AL ACOSTARS E Medica tionGene ricName: atorvast atin Not Available Not Available Not Available Vitamin C 500 mg tablet active Medicati on ID: [id number] B rand Name: Vitamin C Send Method: [...] layed release 02/11 completed Medicati on ID: [id number] D uration Value: 90 Brand Name: aspirin Send Method: E-Prescr ibed Sub s Allowed: subs OK Speci al Instruct ion: TOME PRAVENE TABLETA POR V?A ORAL TODOS LOS D? Med icationG enericNa me: aspirin Not Available Not Available Not Available tramadol 50 mg tablet active Medicati on ID: [id number] B rand Name: tramadol Send Method: E-Prescr ibed Sub s Allowed: subs OK Medic ationGen ericName : tramadol Not Available Not Available Not Available spironola ctone 25 mg tablet active Medicati on ID: [id number] B rand Name: spironol actone S end [...] 10 mg tablet active Medicati on ID: [id number] B rand Name: baclofen Send Method: E-Prescr ibed Sub s Allowed: subs OK Speci al Instruct ion: TAKE 1 TABLET BY MOUTH 3 TIMES EVERY DAY NEEDED FOR MUSCLE SPASM/PA IN [facility] : [facility]acl[facility]en Not Available Not Available Not Available benzonata te 100 mg capsule TAKE 1 CAPSULE BY MOUTH THREE TIMES DAILY NEEDED FOR COUGH active Not Available Not Available No t Available pantopraz ole 40 mg tablet,de layed release active Medicati on ID: [id number] B rand Name: pantopra zole Sen d Method: E-Prescr ibed Sub s Allowed: subs OK [facility] : pantopra zole Not Available Not Available Not Available ferrous sulfate 325 mg (65 mg iron) tablet 04/27 completed Medicati on ID: [id number] B rand Name: ferrous sulfate Send Method: [...] mg tablet 02/11 completed Medicati on ID: [id number] D uration Value: 90 Brand Name: metoprol ol tartrate Send Method: E-Prescr ibed Sub s Allowed: subs OK Speci al Instruct ion: TOME PRAVEEN TABLETA HA VECES AL D?A [facility] nericNam e: metoprol ol tartrate Not Available Not Available Not Available folic acid 1 mg tablet TAKE 1 TABLET BY MOUTH EVERY DAY active Not Available Not Available No t Available digoxin 125 mcg (0.125 mg) tablet active Medicati on ID: [id number] B rand Name: digoxin Send Method: E-Prescr ibed Sub s Allowed: subs OK Speci al Instruct ion: TOME PRAVEEN TABLETA TODOS LOS D Medic [facility] ericName : digoxin Not Available Not Available Not Available furosemid e 20 mg tablet TAKE 1 TABLET BY MOUTH EVERY EVENING active Not Available Not Available No t Available gabapenti n 100 mg capsule 02/11 completed Medicati on ID: [id number] B rand Name: gabapent in Send Method: E-Prescr ibed Sub s Allowed: subs OK Medic ationGen ericName : gabapent in Not Available Not Available Not Available Novolog U-100 Insulin aspart 100 unit/mL subcutane ous solution active Medicati on ID: [id number] B rand Name: Novolog U-100 Insulin aspart S end Method: E-Prescr ibed Sub s Allowed: subs OK Speci al Instruct ion: UP TO 100 UNITS VIA INSULIN PUMP SUBCUT DAILY Me dication GenericN norma: Novolog U-100 Insulin aspart Not Available Not Available Not Available nystatin 100,000 unit/gram topical powder 04/27 completed Medicati on ID: [id number] B rand Name: nystatin Send Method: E-Prescr ibed Sub s Allowed: subs OK Speci al Instruct ion: APLIQUE AL LIAT AFECTADA DOS VECES AL D A Medica tionGene ricName: nystatin Not Available Not Available Not Available albuterol sulfate HFA 90 mcg/actua tion aerosol inhaler 02/11 completed Medicati on ID: [id number] B rand Name: albutero l sulfate Send Method: E-Prescr ibed Sub s Allowed: subs OK Speci al Instruct ion: TOME DOS INHALACI ONES POR V A ORAL CADA CUATRO A SEIS HORAS CUANDO SEA NECESARI O Medica tionGene ricName: albutero l sulfate Not Available Not Available Not Available fluticaso ne propionat e 50 mcg/actua tion nasal spray,lalo pension active Medicati on ID: [id number] B rand Name: fluticas one propiona te [...] 40 mg tablet active Medicati on ID: [id number] B rand Name: valsarta n Send Method: [...] mg-50 mg tablet active Medicati on ID: [id number] B rand Name: Senna Plus Sen d [...] ion nasal spray active Medicati on ID: [id number] B rand Name: Narcan S end Method: [...] pen injector 02/11 completed Medicati on ID: [id number] D uration Value: 30 Brand Name: Ozempic [...] Available Not Available Not Available Dexcom G7 Producer USE DIRECTED active Not Available Not Available [...] Updated DateTime 07/30/2024 149.86 cm 26.7 kg/m2 31598.19 g Nash [place] - [facility] 07/30/2024 08:41:37 Social History None recorded. Functional Status None recorded. Mental Status None recorded. Family History Nothing Reported. Medical History Condition Response Diabetes Y Gynecological HistoryNo gynecological history recorded. Obstetrics History GPAL:G 0 P 0 0 0 0 Past Encounters Encounter ID Performer Location Encounter Start Date Encounter Closed Date Diagnosis/Indication Diagnosis SNOMED-CT Code Diagnosis ICD10 Code Diagnosis Note [id number] WYATT NAVA MD [facility] [address] [address] 07/30/2024 08:36:37 07/30/2024 09:43:52 Sensorineural hearing loss of bilateral ears [id number] H90.3 Audiologic al evaluation results: Right ear: [...] seal}} Impacted c erumen of bilateral ears [id number] 197699 H61.23 Ears were meticulous ly cleaned bilaterall [...] Concerns Section Related Observation LastModified by Organization Siria matthews LastModified Time None Recorded Concern Status LastModified by Organization Details LastModified Time None Recorded Payers Encounter Date Sequence Insurance Name Policy Number Policy Ivy Covered Member ID Ivy Member ID Guarantor Name 07/30/2024 1 [facility] - DOS ON OR AFTER 2022 - [employer] (MEDICARE REPLACEMENT/ADV ANTAGE - HMO) Candi Sanchez [id number] Candi Sanchez Notes Date Note Type Note Provider Name and Address Organization Details Recorded Time 07/30/2024 text/html IPad - Spanishhearing lossdid not pursue hearing aids in past year 08/01/23 Dr Kern audiomild sloping to severe B SNHLcleared for B HAE PV 04/27/24 Iris - cough - improved with meds from pulscotty NAVA MD [address] [place] [address], [address], [facility] - [facility] 07/30/2024 09:42:27 OBGyn Episode No OBEpisode recorded.
[2024-08-15 11:31] LABS: Appearance Urine Clear; Color Urine Dark Yellow; Glucose Urine UA Negative (Negative); Leukocyte Esterase Urine Negative (Negative); Nitrite Urine Negative (Negative); PH 5.5 (5.0-9.0); Specific Gravity - Urine >= 1.030 (1.005-1.025); UMIC TRIGGER UA YES; Urine Blood Small (1+) (Negative); Urine Ketones Trace mg/dL (Negative); Urine Protein 300 (3+) mg/dL (Neg-Trace)
[2024-08-15 11:34] LABS: Bacteria Urine None Seen (None Seen); RBC Urine >20 /HPF (0-2); Squamous Epithelial Cell Urine 0-2 /HPF (0-2); WBC Urine 0-5 /HPF (0-5)
[2024-08-15 11:43] LABS: B Type Natriuretic Peptide 548 pg/mL (<100)
[2024-08-15 11:51] LABS: MANUAL DIFF FLAG NO
[2024-08-15 12:05] LABS: Estimated Average Glucose 183 mg/dL
[2024-08-15 12:06] LABS: Estimated Average Glucose 183 mg/dL
[2024-08-15 12:07] LABS: Basophils Percent Auto 0.7 % (0-2); Eosinophils Absolute Auto 0.1 X10*3/uL (0.0-0.4); Eosinophils Percent Auto 1.8 % (0-4); Hemoglobin 11.1 g/dl (12.0-16.0); Imm Gran Abs Auto 0.01 X10*3/uL (0.00-0.03); Imm Gran Pct Auto 0.2 % (0.0-0.4); Lymphocytes Absolute Auto 1.2 X10*3/uL (1.2-4.9); Lymphocytes Percent Auto 19.6 % (20-40); Mean Corpuscular Hemoglobin 23.1 pg (27.0-33.0); Mean Corpuscular Volume 76.9 fL (80.0-98.0); Monocytes Absolute Auto 0.3 X10*3/uL (0.1-1.2); Monocytes Percent Auto 4.7 % (2-11); Neutrophils Absolute Auto 4.5 x10*3/uL (2.0-8.3); Platelet Count 126 X10*3/uL (160-400); Red Blood Count 4.81 X10*6/uL (4.20-5.50); Red Cell Distribution Width 14.7 % (11.0-16.0); White Blood Count 6.1 X10*3/uL (4.8-10.8)
[2024-08-15 12:37] LABS: Alanine Aminotransferase 22 U/L (0-31); Albumin Level 3.1 g/dL (3.5-5.0); Alkaline Phosphatase 123 U/L (39-117); Anion Gap 9 (12-20); Aspartate Amino Transferase 34 U/L (5-31); Bilirubin Direct 0.1 mg/dL (0.0-0.5); Bilirubin Total 0.3 mg/dL (0.0-1.0); Blood Urea Nitrogen 12 mg/dL (9-16); Calcium 9.2 mg/dL (8.4-10.2); Carbon Dioxide 29 mmol/L (22-29); Chloride 106 mmol/L (96-108); Cholesterol 146 mg/dL (<200); Estimated Glomerular Filt Rate > 60; Glucose Random 176 mg/dL (60-115); HDL Cholesterol 53 mg/dL (>40); LDL Cholesterol Calculated 76 mg/dL (<100); Potassium 3.7 mmol/L (3.3-5.1); Sodium 140 mmol/L (135-145); Total Protein 7.2 g/dL (6.5-8.0); Triglycerides 88 mg/dL (<150)
[2024-08-15 12:40] LABS: Free T4 (Free Thyroxine) 1.18 ng/dL (0.71-1.85); Thyroid Stimulating Hormone 1.13 uIU/mL (0.32-4.0); Vitamin D 25-OH Total 19.2 ng/mL (>30)
[2024-08-15 13:09] LABS: Vitamin B12 726 pg/mL (200-900)
[2024-08-15 13:29] LABS: Protein/Creatinine Ratio, Ur 2.06 (<0.2); Total Protein Urine Random 407 mg/dL (<12)
[2024-08-16 10:03] LABS: RPR Rapid Plasma Reagin NON-REACTIVE (NON-REACTIVE)
[2024-08-16 22:27] LABS: IgA 400 mg/dL (70-320); IgG 1608 mg/dL (600-1540); IgM 241 mg/dL (50-300)
[2024-08-17 17:29] LABS: Anti DNA DS Antibody <1 IU/mL; Myeloperoxidase Antibody <1.0 AI; Proteinase 3 PR3 Antibodies <1.0 AI
[2024-08-20 23:13] LABS: Phospholipase A2 IgG ELISA <4 RU/mL; Phospholipase A2 IgG IFA NEGATIVE (NEGATIVE)
== END 2024-08-15 09:39 | disposition home or self-care (01) ==
LOC: HO.HHCL 09:38
PROVIDERS: Family Medicine; Internal Medicine Nephrology; Nurse Practitioner Adult Health; Visit Provider Internal Medicine Pulmonary Disease
DX: D69.6 Thrombocytopenia, unspecified (principal); E10.65 Type 1 diabetes mellitus with hyperglycemia; R31.29 Other microscopic hematuria; Z00.00 Encounter for general adult medical examination without abnormal findings; R68.89 Other general symptoms and signs; G47.30 Sleep apnea, unspecified; R51.9 Headache, unspecified; R93.89 Abnormal findings on diagnostic imaging of other specified body structures; R05.3 Chronic cough; E04.2 Nontoxic multinodular goiter; R91.8 Other nonspecific abnormal finding of lung field; M25.512 Pain in left shoulder; G89.29 Other chronic pain; M25.511 Pain in right shoulder; M05.9 Rheumatoid arthritis with rheumatoid factor, unspecified; D69.3 Immune thrombocytopenic purpura; I42.8 Other cardiomyopathies; E78.49 Other hyperlipidemia; I10 Essential (primary) hypertension; E10.9 Type 1 diabetes mellitus without complications; R80.1 Persistent proteinuria, unspecified
CPT/HCPCS: 36415; 80053; 80061; 80076; 81001; 82248; 82306; 82570; 82607; 82746; 82784; 83036; 83520; 83880; 84156; 84439; 84443; 85025; 86021; 86225; 86255; 86334; 86592

== ENCOUNTER 2024-08-16 07:19 | Outpatient (REF) | payer OTHER, SELFPAY ==
--- NOTE | ~2024-08-16 | CT_ITS ---
CLINICAL HISTORY: worsening forgetfulness CT head without contrast Comparison: Head CT 10/10/2013 Findings: No intra-axial mass, midline shift, hydrocephalus, or acute hemorrhage. There are mild central and cortical involutional changes. There are mild old small-vessel white matter ischemic changes. The visualized paranasal sinuses and mastoid air cells are normal. The orbits are unremarkable. No skull fracture. IMPRESSION: No acute intracranial findings. Mild central and cortical involutional changes, mild old small-vessel white matter ischemic changes This document has been electronically signed by: Baldev Yousif MD on 08/17/2024 09:09:00
--- NOTE | ~2024-08-16 | CT_ITS ---
CLINICAL HISTORY: f u lung nodule CT chest without contrast Comparison: 10/13/2023 Findings: There is stable cardiomegaly. There is new small pericardial effusion. Cardiac pacemaker is again noted. Thyromegaly again noted. Correlate clinically and with laboratory values. There is stable 5 mm right lower lobe pulmonary nodule. There are no new pulmonary nodules. Scattered pulmonary scarring and linear subsegmental atelectasis. There is mild left upper lobe ground-glass pulmonary opacity similar to prior The visualized mediastinum are unremarkable. No consolidative infiltrates or pleural effusions. Stable intraspinal calcified lesion T5-T6 level highly likely calcified meningioma stable cord compression and central canal stenosis, correlate with clinical history and physical exam The upper abdomen is unremarkable. No acute fractures. IMPRESSION: Stable 5 mm right lower lobe pulmonary nodule Stable cardiomegaly, new small pericardial effusion, cardiac pacemaker again noted Chronic and incidental findings as above This document has been electronically signed by: Baldev Yousif MD on 08/17/2024 09:18:43
--- OUTSIDE RECORDS SUMMARY | 2024-08-16 07:22 | XMS_ITS | Clinical Summary ---
Author Organization 175 [facility] Address [address] [place] [address] Phone Care Team Providers Care Peoplesoft Fscm Developer Name Role Phone Kelle Aldanafer Agata [place] Primary Care Provider [phone]- [phone] Allergies No known active allergies Medications metFORMIN [...] Orthopedic Surgery [facility] [address] [phone] Kota De La Torre DPM Primary osteoarthritis [...] 11:00 AM EDT Consult Vascular Surgery - [place] [address] [place] [phone] Tiffanie Holbrook MD 300 [facility] [address] [place] [address] 10/01/2024 9:00 AM EDT Office Visit Orthopedic Surgery [facility] 250 175 [facility] 250 [place] [phone] Kota De La Torre DPM 175 [facility] [address] [place] [address] Health Maintenance Due Date Last Done Comments [...] complete this topic Insurance [place]ICA[place] - [place] [facility] Member Subscriber Plan / Payer (Ef fective 2014-Present) Name:Candi Sanchez E Relation to Subscriber:Self Name:Candi Sanchez Payer ID:[id number] Group ID:[id number] Type:Not on file Address: [address] [place] [id number] Care Teams Peoplesoft Fscm Developer Relationship Specialty Start Date End Date Gavi Aldana DO [address] [place], [place] PCP - General Internal Medicine 10/27/11
== END 2024-08-16 07:20 | disposition home or self-care (01) ==
LOC: HO.CT 07:19
PROVIDERS: PCP Family Medicine; Visit Provider Family Medicine
DX: R91.8 Other nonspecific abnormal finding of lung field (principal); R68.89 Other general symptoms and signs
CPT/HCPCS: 70450; 71250

== ENCOUNTER → 2024-08-16 07:23 | Outpatient (BNV) | payer OTHER, SELFPAY | PROVIDERS: PCP Family Medicine; Visit Provider Radiology Diagnostic Radiology | DX: J90 Pleural effusion, not elsewhere classified (principal); I51.7 Cardiomegaly; R91.1 Solitary pulmonary nodule; R41.3 Other amnesia | CPT/HCPCS: 70450; 71250 ==

== ENCOUNTER 2024-08-23 08:59 | Outpatient (REF) | payer OTHER, SELFPAY ==
--- NOTE | ~2024-08-23 | US_ITS ---
EXAMINATION: US THYROID CLINICAL INFORMATION: Nontoxic single thyroid nodule COMPARISON: None available. TECHNIQUE: Linear transducer grayscale and color Doppler examination with attention to the region of the thyroid. FINDINGS: SIZE: Measurements of the thyroid lobes and nodules are given in sagittal, anteroposterior and transverse dimensions respectively. Right Thyroid Lobe: 5.5 x 2.9 x 2.4 cm, volume 20 mL. Previously 4.7 x 2.7 x 2.4 cm. Volume 14.4 mL Parenchyma: The gland echotexture is normal. Thyroid vascularity is normal. Left Thyroid Lobe: 5.5 x 3.2 x 2.3 cm, volume 22 mL. Previously 4.5 x 2.7 x 2.4 cm. Volume 13.9 mL Parenchyma: The gland echotexture is normal. Thyroid vascularity is normal. Isthmus: 0.3 cm in maximum AP dimension. Estimated total number of nodules greater than or equal to 1 cm: 4. National Sales nodules are described as follows: 1. Location: Right distal mass lower pole. Size: 0.9 x 0.4 x 0.7 cm, volume 0.106 mL. Nodule characteristics: Composition: Mixed cystic and solid (1). Echogenicity: Hypoechoic Shape: Wider Margins: Smooth (0). Echogenic Foci: None (0). ACR TI-RADS total points: 4 ACR TI-RADS category: TR 4 2. Location: Right mid/lower pole. Size: 1.7 x 1.3 x 1.5 cm, volume 1.6 mL. Nodule characteristics: Composition: Solid (2). Echogenicity: Isoechoic (1). Shape: Widened Margins: Smooth (0). Echogenic foci : None. ACR TI-RADS total points: 3 ACR TI-RADS category: 3 3. Location: Right lower pole. Size: 1.5 x 1.4 x 1.6 cm, volume 1.7 mL. Nodule characteristics: Composition: Solid/almost completely solid (2). Echogenicity: Isoechoic (1). Shape: Wider Margins: Smooth (0). Echogenic Foci: None (0). ACR TI-RADS total points: 3 ACR TI-RADS category: 3 4. Location: Left midpole. Size: 1.4 x 1.1 x 1.6 cm, volume 1.3 mL. Previously measured 2.2 x 1.1 x 2.0 cm and volume 2.4. Nodule characteristics: Composition: Solid (2). Echogenicity: Isoechoic (1). Shape: Wider Margins: Smooth (0). Echogenic Foci: None (0). ACR TI-RADS total points: 3 ACR TI-RADS category: 3. 5. Left lower pole nodule. It measures 1.3 x 1.2 x 1.6 cm in volume 1.3 mL. Previously measured 2.0 x 1.8 x 1.4 cm in volume mL. There is a solid nodule with isoechoic texture, wider, smoother margins and no echogenic foci. Total points 3. Ti-rads 3. NODES: No lymphadenopathy is seen in the tissue surrounding the thyroid gland. US/US thyroid IMPRESSION: Enlarged bilateral thyroid lobes. Multiple nodules largest measuring 1.7 cm right mid to lower pole. Most of these are solid nodules. Recommend continued follow-up ACR TI-RADS RECOMMENDATION REFERENCE: Ultrasound-guided fine-needle aspiration, followup ultrasound, no further follow up. * TR1 (0 point) and TR2 (2 points): No FNA or follow up. * TR3 (3 points): FNA if more than or equal to 2.5 cm in maximum dimension, followup ultrasound in 1, 3 and 5 years if 1.5 to 2.4 cm in maximum dimension. * TR4 (4-6 points): FNA if more than or equal to 1.5 cm in maximum dimension, followup ultrasound in 1, 2, 3 and 5 years if 1 to 1.4 cm in maximum dimension. * TR5 (more than or equal to 7 points): FNA if more than or equal to 1 cm in maximum dimension, followup ultrasound every year for 5 years if 0.5 to 0.9 cm in maximum dimension. * TR3, TR4 or TR5 nodules that are below the size threshold for followup receive no follow up. Electronically signed by: Vladislav Haskins MD 08/23/2024 03:25 PM EDT
--- OUTSIDE RECORDS SUMMARY | 2024-08-23 09:31 | XMS_ITS | Clinical Summary ---
Author Organization 175 [facility] Address [address] [place] [address] Phone Care Team Providers Care Optical Advisor Name Role Phone Kelle Aldanafer Ej [place] Primary Care Provider [phone] Allergies No known active allergies Medications metFORMIN [...] [facility] [address] [phone] Kota De La Torre DPM Primary osteoarthritis [...] 11:00 AM EDT Consult Vascular Surgery - [place] [address] [place] [phone] Tiffanie Holbrook MD 300 [facility] [address] [place] [address] 10/01/2024 9:00 AM EDT Office Visit Orthopedic Surgery [facility] 250 175 [facility] 250 [place] [phone] Kota De La Torre DPM 175 [facility] [address] [place] [address] Health Maintenance Due Date Last Done Comments [...] complete this topic Insurance [place] - [place] [facility] Member Subscriber Plan / Payer (Ef fective 2014-Present) Name:Candi Sanchez E Relation to Subscriber:Self Name:Candi Sanchez Payer ID:[id number] Group ID:[id number] Type:Not on file Address: [address] [place] [id number] Care Teams Optical Advisor Relationship Specialty Start Date End Date Gavi Aldana DO [address] [place] [address] PCP - General Internal Medicine 10/27/11
--- OUTSIDE RECORDS SUMMARY | 2024-08-23 09:31 | XMS_ITS | Encounter Summary ---
Author Organization [employer] Address [address] [facility] 7t [place] [address] Care Team Providers Care Cumulative Effects Analyst Name Role Phone Gavi Aldana DO Primary Care Provider + [phone] Reason for Visit * Reason Comments Med Refill Encounter Details Date Type Department Care Team ([facility] st Contact Info) Description 04/04/2024 Refill [facility] MED[facility]INE [address] [place] [address] Gavi Aldana DO [address] [place] [address] Social History Tobacco Use Types Packs/Day Years [...] Description 08/28/2024 9:00 AM EDT Office Visit [facility] ADULT DENTAL [address] [place] [address] José Miguel Sy DDS [address] [place] [address] documented as of this encounter Visit Diagnoses Not on filedocumented in this encounter Additional Health Concerns Assessment Noted Time PHQ-9 Depression Total Score: 1 06/15/19 24 10:29 AM EST documented as of this encounter Care Teams Cumulative Effects Analyst Relationship Specialty Start Date End Date Gavi Aldana DO [address] [place] [address] PCP - General Family Medicine 06/06/18 documented as of this encounter
--- OUTSIDE RECORDS SUMMARY | 2024-08-23 09:31 | XMS_ITS | Encounter Summary ---
Author Organization [facility] Address [address] [place] [address] 7[address] [place] [address] Care Team Providers Care Safemaker Name Role Phone Gavi Aldana DO Primary Care Provider + [phone] Encounter Details Date Type Department Care Team (Late st Contact Info) Description 07/22/2022 Orders Only [facility] CH[facility] MED & PEDS [address] [place] [address] Gavi Duarte LPN Social History Tobacco Use [...] Description 08/28/2024 9:00 AM EDT Office Visit [facility] ADULT DENTAL [address] [place] [address] José Miguel Sy DDS [address] [place] [address] documented as of this encounter Visit Diagnoses Not on filedocumented in this encounter Care Teams Safemaker Relationship Specialty Start Date End Date Gavi Aldana DO [address] [place] [address] PCP - General Family Medicine 06/06/18 documented as of this encounter
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
--- OUTSIDE RECORDS SUMMARY | 2024-08-23 09:31 | XMS_ITS | Encounter Summary ---
Author Organization [employer] [facility] Address [address] [place] [address] 7t [place] [address] Care Team Providers Care Jewel Bearing Driller Name Role Phone Gavi Aldana DO Primary Care Provider + [phone] Encounter Details Date Type Department Care Team (Latest Contact Info) Description 03/10/2022 Abstract [facility] CONVERSIONS Dental, Provider, DDS Social History [...] Description 08/28/2024 9:00 AM EDT Office Visit [facility] ADULT DENTAL [address] [place] [address] José Miguel Sy DDS [address] [place] [address] documented as of this encounter Visit Diagnoses Not on filedocumented in this encounter Care Teams Jewel Bearing Driller Relationship Specialty Start Date End Date Gavi Aldana DO [address] [place] [address] PCP - General Family Medicine 06/06/18 documented as of this encounter
--- OUTSIDE RECORDS SUMMARY | 2024-08-23 09:31 | XMS_ITS | Encounter Summary ---
Author Organization [employer] [facility] Address [address] [place] [address] 7t [place] [address] Care Team Providers Care Tobacco Warehouse Manager Name Role Phone Gavi Aldana DO Primary Care Provider + [phone] Encounter Details Date Type Department Care Team (Late st Contact Info) Description 06/22/2022 Orders Only [facility] MEDICINE [address] [place] [address] Tamara Floyd LPN Social History Tobacco Use [...] Visit [facility] ADULT DENTAL [address] [place] [address] José Miguel Sy DDS [address] [place], [place] [phone] documented as of this encounter Procedures Procedure Name Priority Date/Time Associated Diagnosis Comments GLUCOSE, WHOLE BLOOD Routine 07/06/2022 10:44 AM EST documented in this encounter Results * (ABNORMAL) Glucose, Whole Blood (07/06/2022 10:44 AM EST) Glucose, Whole Blood 204(H) 60 - 115 mg/dL [facility] Comment:METER #: [id number] 5Testing performed in the Endocrinology Department [address] , [address], [facility]. 07/06/2022 10:4 4 AM EST 07/06/2022 10:48 AM EST [facility] External Provider LAB BLO OD ORDERABLES Final Result Performing Organization Address City/State/[facility] Co de Phone Number [facility] [address] [place] [address] [phone] documented in this encounter Visit Diagnoses Not on filedocumented in this encounter Care Teams Tobacco Warehouse Manager Relationship Specialty Start Date End Date Gavi Aldana DO [address] [place] [address] PCP - General Family Medicine 06/06/18 documented as of this encounter
--- OUTSIDE RECORDS SUMMARY | 2024-08-23 09:31 | XMS_ITS | Encounter Summary ---
Author Organization [employer] [facility] Address [address] [place] [address] 7t [place] [address] Care Team Providers Care Compliance Intern Name Role Phone Gavi Aldana DO Primary Care Provider + [phone] Reason for Visit * Reason Comments Med Refill Encounter Details Date Type Department Care Team (Late Contact Info) Description 10/11/2022 Refill [facility] MEDICINE [address] [place] [address] Gavi Aldana DO [address] [place] [address] Other chronic pain Social History Tobacco Use [...] 9:00 AM EDT Office Visit [facility] ADULT DENTAL [address] [place] [address] José Miguel Sy DDS [address] [place] [address] documented as of this encounter Visit Diagnoses Diagnosis Other chronic pain documented in this encounter Care Teams Compliance Intern Relationship Specialty Start Date End Date Gavi Aldana DO [address] [place] [address] PCP - General Family Medicine 06/06/18 documented as of this encounter
--- OUTSIDE RECORDS SUMMARY | 2024-08-23 09:31 | XMS_ITS | Continuity of Care Document ---
Author Organization [place] [facility], [facility] Address [address] [place] [address] Care Team Providers Care Insurance Office Supervisor Name Role Phone MARTINEZ VIZCARRA Primary Care [...] copy of the audiogram, a list of [facility] hearing aid providers, and medical clearance [...] Organization Details Recorded Time Dizziness and giddiness [id number] Active 2018 Dizziness and giddiness ; Note: Date Diagnosed : 01/25/2019 11:02 AM (R42) Not Available [facility] 4 02:39:47 Impacted cerumen of bilateral ears [id number] 80068 Active 2018 Impacted cerumen, bilateral ; Note: Date Diagnosed : 01/25/2019 11:05 AM (H61.23) Not Available [facility] 4 02:39:43 Bilateral tinnitus [id number] 02 Active 2018 Tinnitus, bilateral ; Note: Date Diagnosed : 01/25/2019 11:24 AM (H93.13) Not Available [facility] 4 02:39:43 Cough 62706454 Active 2020 Cough, unspecifi ed; Note: Changed from R05 to R05.9 ( 4 9:23 AM) , Date Diagnosed : 02/11/2021 10:17 AM (R05) WYATT NAVA MD [address] [place] [address], [place], [address] [facility] 4 10:02:57 Benign paroxysma l positiona l vertigo 207147375 Active 2018 Benign paroxysma l vertigo, unspecifi ed ear; Note: Date Diagnosed : 01/25/2019 11:03 AM (H81.10) Not Available [facility] 4 02:39:53 Sensorine ural hearing loss of bilateral ears 021871834 Active 2018 Sensorine ural hearing loss, bilateral ; Note: Date Diagnosed : 01/25/2019 11:24 AM (H90.3) Not Available [facility] 4 02:39:48 Gastroeso phageal reflux disease without esophagit is 987413458 Active 2023 Gastro-es ophageal reflux disease without esophagit is; Note: Date Diagnosed : 08/25/2023 10:32 AM (K21.9) Not Available [facility] 4 02:39:48 Allergic rhinitis 03279817 Active 2023 Allergic rhinitis, unspecifi ed; Note: Date Diagnosed : 08/01/2023 10:25 AM (J30.9) Not Available [facility] 02:39:50 Nasal congestio n 98975790 Active 2023 Nasal congestio n; Note: Date Diagnosed : 08/01/2023 10:25 AM (R09.81) Not Available [facility] 02:39:53 Problem Notes None recorded. Procedures Surgical History Date Name Laterality Status Provider Name and Address Organization Details Recorded Time 07/30/19 Wax_DP completed WYATT NAVA MD [address] [facility],[address], [address], [facility] - [facility] 07/30/2024 08:53:51 07/30/19 Air only Audio (65640) completed Nupur DIOP [address] [place] [address],[address], [address], [facility] - [facility] 07/30/2024 09:17:09 07/30/19 25 Tympanometry (06806) completed Nupur DIOP [address] [place] [address],[address], [address], [facility] - [facility] [...] mg tablet 04/27 completed Medicati on ID: [id number] B rand Name: atorvast atin Sen d Method: E-Prescr ibed Sub s Allowed: subs OK Speci al Instruct ion: TOME PRAVEEN TABLETA TODOS LOS D AL ACOSTARS E Medica tionGene ricName: atorvast atin Not Available Not Available Not Available Vitamin C 500 mg tablet active Medicati on ID: [id number] B rand Name: Vitamin C Send Method: [...] layed release 02/11 completed Medicati on ID: [id number] D uration Value: 90 Brand Name: aspirin Send Method: E-Prescr ibed Sub s Allowed: subs OK Speci al Instruct ion: TOME PRAVEEN TABLETA POR V?A ORAL TODOS LOS D? Med icationG enericNa me: aspirin Not Available Not Available Not Available tramadol 50 mg tablet active Medicati on ID: [id number] B rand Name: tramadol Send Method: E-Prescr ibed Sub s Allowed: subs OK Medic ationGen ericName : tramadol Not Available Not Available Not Available spironola ctone 25 mg tablet active Medicati on ID: [id number] B rand Name: spironol actone S end [...] 10 mg tablet active Medicati on ID: [id number] B rand Name: baclofen Send Method: E-Prescr ibed Sub s Allowed: subs OK Speci al Instruct ion: TAKE 1 TABLET BY MOUTH 3 TIMES EVERY DAY NEEDED FOR MUSCLE SPASM/[facility] : [facility] Not Available Not Available Not Available benzonata te 100 mg capsule TAKE 1 CAPSULE BY MOUTH THREE TIMES DAILY NEEDED FOR COUGH active Not Available Not Available No t Available pantopraz ole 40 mg tablet,de layed release active Medicati on ID: [id number] B rand Name: pantopra zole Sen d Method: E-Prescr ibed Sub s Allowed: subs OK [facility] : pantopra zole Not Available Not Available Not Available ferrous sulfate 325 mg (65 mg iron) tablet 04/27 completed Medicati on ID: [id number] B rand Name: ferrous sulfate Send Method: [...] mg tablet 02/11 completed Medicati on ID: [id number] D uration Value: 90 Brand Name: metoprol ol tartrate Send Method: E-Prescr ibed Sub s Allowed: subs OK Speci al Instruct ion: TOME PRAVEEN TABLETA HA VECES AL D?A [facility] nericNam e: metoprol ol tartrate Not Available Not Available Not Available folic acid 1 mg tablet TAKE 1 TABLET BY MOUTH EVERY DAY active Not Available Not Available No t Available digoxin 125 mcg (0.125 mg) tablet active Medicati on ID: [id number] B rand Name: digoxin Send Method: E-Prescr ibed Sub s Allowed: subs OK Speci al Instruct ion: TOME PRAVEEN TABLETA TODOS LOS D Medic [facility] ericName : digoxin Not Available Not Available Not Available furosemid e 20 mg tablet TAKE 1 TABLET BY MOUTH EVERY EVENING active Not Available Not Available No t Available gabapenti n 100 mg capsule 02/11 completed Medicati on ID: [id number] B rand Name: gabapent in Send Method: E-Prescr ibed Sub s Allowed: subs OK Medic ationGen ericName : gabapent in Not Available Not Available Not Available Novolog U-100 Insulin aspart 100 unit/mL subcutane ous solution active Medicati on ID: [id number] B rand Name: Novolog U-100 Insulin aspart S end Method: E-Prescr ibed Sub s Allowed: subs OK Speci al Instruct ion: UP TO 100 UNITS VIA INSULIN PUMP SUBCUT DAILY Me dication GenericN norma: Novolog U-100 Insulin aspart Not Available Not Available Not Available nystatin 100,000 unit/gram topical powder 04/27 completed Medicati on ID: [id number] B rand Name: nystatin Send Method: E-Prescr ibed Sub s Allowed: subs OK Speci al Instruct ion: APLIQUE AL LIAT AFECTADA DOS VECES AL D A Medica tionGene ricName: nystatin Not Available Not Available Not Available albuterol sulfate HFA 90 mcg/actua tion aerosol inhaler 02/11 completed Medicati on ID: [id number] B rand Name: albutero l sulfate Send Method: E-Prescr ibed Sub s Allowed: subs OK Speci al Instruct ion: TOME DOS INHALACI ONES POR V A ORAL CADA CUATRO A SEIS HORAS CUANDO SEA NECESARI O Medica tionGene ricName: albutero l sulfate Not Available Not Available Not Available fluticaso ne propionat e 50 mcg/actua tion nasal spray,lalo pension active Medicati on ID: [id number] B rand Name: fluticas one propiona te [...] 40 mg tablet active Medicati on ID: [id number] B rand Name: valsarta n Send Method: [...] mg-50 mg tablet active Medicati on ID: [id number] B rand Name: Senna Plus Sen d [...] ion nasal spray active Medicati on ID: [id number] B rand Name: Narcan S end Method: [...] pen injector 02/11 completed Medicati on ID: [id number] D uration Value: 30 Brand Name: Ozempic [...] Available Not Available Not Available 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 Not Available Not Available [...] Updated DateTime 07/30/2024 149.86 cm 26.7 kg/m2 77901.19 g Nash Hammond [place] - [facility] [...] SNOMED-CT Code Diagnosis ICD10 Code Diagnosis Note [id number] WYATT NAVA MD [facility] [address] [address] 07/30/2024 08:36:37 07/30/2024 09:43:52 Sensorineural hearing loss of bilateral ears [id number] H90.3 Audiologic al evaluation results: Right ear: [...] seal}} Impacted c erumen of bilateral ears [id number] 800089 H61.23 Ears were meticulous ly cleaned bilaterall [...] Ivy Member ID Guarantor Name 07/30/2024 1 [facility] - DOS ON OR AFTER 2022 - ASSISTED OPTIONS (MEDICARE REPLACEMENT/ADV ANTAGE - HMO) Candi Sanchez [id number] Candi Sanchez Notes Date Note Type Note Provider Name and Address Organization Details Recorded Time 07/30/2024 text/html IPad - Spanishhearing lossdid not pursue hearing aids in past year 08/01/23 Dr Kern audiomild sloping to severe B SNHLcleared for B HAE PV 04/27/24 Iris - cough - improved with meds from pulscotty NAVA MD [address] [place] [address], [address], [facility] - [facility] 07/30/2024 09:42:27 OBGyn Episode No OBEpisode recorded.
--- OUTSIDE RECORDS SUMMARY | 2024-08-23 09:31 | XMS_ITS | Encounter Summary ---
Author Organization [employer] Address [address] [facility] 7t [place] [address] Care Team Providers Care Spring Tester Name Role Phone FlacoGavi humphreys Primary Care Provider + [phone] Encounter Details Date Type Department Care Team (Late st Contact Info) Description 09/14/2023 Orders Only [facility] MEDICINE [address] [place] [address] ProviderMeliton MD Social History Tobacco Use Types [...] Description 08/28/2024 9:00 AM EDT Office Visit [facility] ADULT DENTAL [address] [place], [place] [address] José Miguel Sy DDS [address] [place], [place] [phone] documented as of this encounter Procedures Procedure [...] documented as of this encounter Care Teams Spring Tester Relationship Specialty Start Date End Date Gavi Aldana DO [address] [place] [address] PCP - General Family Medicine 06/06/18 documented as of this encounter
--- OUTSIDE RECORDS SUMMARY | 2024-08-23 09:31 | XMS_ITS | Data Portability ---
Author Organization [place] [facility], Allergy Address [address] [facility] [address] [place] [address] Care Team Providers Care Computer Publisher Name Role Phone MARTINEZ VIZCARRA Primary Care [...] copy of the audiogram, a list of [facility] hearing aid providers, and medical clearance for [...] Organization Details Recorded Time Dizziness and giddiness 938040622 Active 2018 Dizziness and giddiness ; Note: Date Diagnosed : 01/25/2019 11:02 AM (R42) Not Available [facility] 4 02:39:47 Impacted cerumen of bilateral ears 33210611413 94422 Active 2018 Impacted cerumen, bilateral ; Note: Date Diagnosed : 01/25/2019 11:05 AM (H61.23) Not Available [facility] 4 02:39:43 Bilateral tinnitus 24244257478 02 Active 2018 Tinnitus, bilateral ; Note: Date Diagnosed : 01/25/2019 11:24 AM (H93.13) Not Available [facility] 4 02:39:43 Cough 98978163 Active 2020 Cough, unspecifi ed; Note: Changed from R05 to R05.9 ( 4 9:23 AM) , Date Diagnosed : 02/11/2021 10:17 AM (R05) WYATT NAVA MD [address] [place] [address], [address] , [facility] - [facility] 4 10:02:57 Benign paroxysma l positiona l vertigo 495180864 Active 2018 Benign paroxysma l vertigo, unspecifi ed ear; Note: Date Diagnosed : 01/25/2019 11:03 AM (H81.10) Not Available [facility] 4 02:39:53 Sensorine ural hearing loss of bilateral ears 811741590 Active 2018 Sensorine ural hearing loss, bilateral ; Note: Date Diagnosed : 01/25/2019 11:24 AM (H90.3) Not Available [facility] 4 02:39:48 Gastroeso phageal reflux disease without esophagit is 416334115 Active 2023 Gastro-es ophageal reflux disease without esophagit is; Note: Date Diagnosed : 08/25/2023 10:32 AM (K21.9) Not Available [facility] 02:39:48 Allergic rhinitis 16609580 Active 2023 Allergic rhinitis, unspecifi ed; Note: Date Diagnosed : 08/01/2023 10:25 AM (J30.9) Not Available [facility] 02:39:50 Nasal congestio n 68000733 Active 2023 Nasal congestio n; Note: Date Diagnosed : 08/01/2023 10:25 AM (R09.81) Not Available [facility] 02:39:53 Problem Notes None recorded. Procedures Surgical History Date Name Laterality Status Provider Name and Address Organization Details Recorded Time 07/30/19 25 Wax_DP completed WYATT NAVA MD [address] [place] [address], [address], [facility] 07/30/2024 08:53:51 07/30/19 25 Air only Audio (14665) completed Nupur DIOP [address] [place] [address], [address], [facility] 07/30/2024 09:17:09 07/30/19 25 Tympanometry (90208) completed Nupur DIOP [address] [place] [address], [address], [facility] 07/30/2024 09:17:15 Imaging Results Imaging Date [...] mg tablet 04/27 completed Medicati on ID: [id number] B rand Name: atorvast atin Sen d Method: E-Prescr ibed Sub s Allowed: subs OK Speci al Instruct ion: TOME PRAVEEN TABLETA TODOS LOS D AL ACOSTARS E Medica tionGene ricName: atorvast atin Not Available Not Available Not Available Vitamin C 500 mg tablet active Medicati on ID: 610455 B rand Name: Vitamin C Send Method: [...] layed release 02/11 completed Medicati on ID: [id number] D uration Value: 90 Brand Name: aspirin Send Method: E-Prescr ibed Sub s Allowed: subs OK Speci al Instruct ion: TOME PRAVEEN TABLETA POR V?A ORAL TODOS LOS D? Med icationG enericNa me: aspirin Not Available Not Available Not Available tramadol 50 mg tablet active Medicati on ID: [id number] B rand Name: tramadol Send Method: E-Prescr ibed Sub s Allowed: subs OK Medic ationGen ericName : tramadol Not Available Not Available Not Available spironola ctone 25 mg tablet active Medicati on ID: [id number] B rand Name: spironol actone S end [...] 10 mg tablet active Medicati on ID: [id number] B rand Name: baclofen Send Method: E-Prescr ibed Sub s Allowed: subs OK Speci al Instruct ion: TAKE 1 TABLET BY MOUTH 3 TIMES EVERY DAY NEEDED FOR MUSCLE SPASM/PA IN [facility] ericName : baclofen Not Available Not Available Not Available benzonata te 100 mg capsule TAKE 1 CAPSULE BY MOUTH THREE TIMES DAILY NEEDED FOR COUGH active Not Available Not Available No t Available pantopraz ole 40 mg tablet,de layed release active Medicati on ID: [id number] B rand Name: pantopra zole Sen d Method: E-Prescr ibed Sub s Allowed: subs OK [facility] ericName : pantopra zole Not Available Not Available Not Available ferrous sulfate 325 mg (65 mg iron) tablet 04/27 completed Medicati on ID: [id number] B rand Name: ferrous sulfate Send Method: [...] mg tablet 02/11 completed Medicati on ID: [id number] D uration Value: 90 Brand Name: metoprol [...] (0.125 mg) tablet active Medicati on ID: 440397 B rand Name: digoxin Send Method: E-Prescr [...] mg capsule 02/11 completed Medicati on ID: [id number] B rand Name: gabapent in Send Method: E-Prescr ibed Sub s Allowed: subs OK Medic ationGen ericName : gabapent in Not Available Not Available Not Available Novolog U-100 Insulin aspart 100 unit/mL subcutane ous solution active Medicati on ID: 923140 B rand Name: Novolog U-100 Insulin aspart S end Method: E-Prescr ibed Sub s Allowed: subs OK Speci al Instruct ion: UP TO 100 UNITS VIA INSULIN PUMP SUBCUT DAILY Me dication GenericN norma: Novolog U-100 Insulin aspart Not Available Not Available Not Available nystatin 100,000 unit/gram topical powder 04/27 completed Medicati on ID: 616335 B rand Name: nystatin Send Method: E-Prescr ibed Sub s Allowed: subs OK Speci al Instruct ion: APLIQUE AL LIAT AFECTADA DOS VECES AL D A Medica tionGene ricName: nystatin Not Available Not Available Not Available albuterol sulfate HFA 90 mcg/actua tion aerosol inhaler 02/11 completed Medicati on ID: 307031 B rand Name: albutero l sulfate Send Method: E-Prescr ibed Sub s Allowed: subs OK Speci al Instruct ion: TOME DOS INHALACI ONES POR V A ORAL CADA CUATRO A SEIS HORAS CUANDO SEA NECESARI O Medica tionGene ricName: albutero l sulfate Not Available Not Available Not Available fluticaso ne propionat e 50 mcg/actua tion nasal spray,lalo pension active Medicati on ID: 745183 B rand Name: fluticas one propiona te [...] 40 mg tablet active Medicati on ID: 340861 B rand Name: valsarta n Send Method: [...] mg-50 mg tablet active Medicati on ID: 375605 B rand Name: Senna Plus Sen d [...] ion nasal spray active Medicati on ID: 430734 B rand Name: Narcan S end Method: [...] pen injector 02/11 completed Medicati on ID: [id number] D uration Value: 30 Brand Name: Ozempic [...] Available Not Available Not Available Dexcom G7 Contract 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 Functional Status None recorded. Mental Status None recorded. Family History Nothing Reported. Medical History Condition Response Diabetes Y Gynecological HistoryNo gynecological history recorded. Obstetrics History GPAL:G 0 P 0 0 0 0 Past Encounters Encounter ID Performer Location Encounter Start Date Encounter Closed Date Diagnosis/Indication Diagnosis SNOMED-CT Code Diagnosis ICD10 Code Diagnosis Note [id number] WYATT NAVA MD [facility] [address] [address] 04/27/2024 09:29:27 04/27/2024 10:08:17 Cough 93931806 R05.9 Sensorineu ral hearing loss of bilateral ears 270092405 H90.3 [id number] WYATT NAVA MD [facility] of [address] [address] 07/30/2024 08:36:37 07/30/2024 09:43:52 Sensorineural hearing loss of bilateral ears 518418348 H90.3 Audiologic al evaluation results: Right ear: [...] seal}} Impacted c erumen of bilateral ears [id number] 740678 H61.23 Ears were meticulous ly cleaned bilaterall [...] Guarantor Name 04/27/2024 2 [employer] [facility] [place] (MEDICARE REPLACEMENT/ADV ANTAGE - HMO) Candi Sanchez [id number] Candi Sanchez 07/30/2024 1 [facility] - DOS ON OR AFTER 2022 - CUSTODIAL OPTIONS (MEDICARE REPLACEMENT/ADV ANTAGE - HMO) Candi Sanchez [id number] Candi Sanchez Notes Date Note Type Note [...] 2 pills. Rx famotidine WYATT NAVA MD [address] [place] [address],[place] [address], [place], [address], [place] - [facility] [place] 04/27/2024 10:06:17 07/30/2024 text/html IPad - Spanishhe aring lossdid not pursue hearing aids in past year 08/01/23 Dr Kern audiomild sloping to severe B SNHLcleared for B HAE PV 04/27/24 Iris - cough - improved with meds from pulscotty NAVA MD [address] [place] [address], [place], [address], [facility] - [facility] 07/30/2024 09:42:27 OBGyn Episode No OBEpisode recorded.
--- OUTSIDE RECORDS SUMMARY | 2024-08-23 09:31 | XMS_ITS | Clinical Summary ---
Author Organization [employer] Address [address] [place] [address] 7[address] [place] [address] Care Team Providers Care Steamship Agent Name Role Phone Gavi Aldana DO Primary Care Provider + [phone] Allergies Active Allergy Reactions Criticality Noted Date [...] FOR COUGH 30 capsule 023 Active Nystop 447196 UNIT/GM powder APPLY TO THE AFFECTED AREA(S) [...] capsule 1 023 Active UltiCare Short Pen Lowman 31G X 8 MM misc USE DIRECTED [...] reports she was exposed to Covid-19 at [place] but she always wears a mask Physical exam wnl Rapid strep, Covid and Flu negative Plan: supportive measures, recommended Tylenol prn, pt to test at home if symptoms do not improve or worsen and notify us if positive or worsening of symptoms Pt verbalized understanding Encounters Date Type Department Care Team Description 08/15/2024 8:40 AM EDT Office Visit [facility] [address] [place] [address] Veena White NP Acute pain of right shoulder (Primary Dx); Hand swelling 07/17/2024 Orders Only GENERIC EXTERNAL DATA DEPARTMENT Provider, Generic External Data 07/11/2024 8:00 AM EST Office Visit [facility] [address] [place] [address] José Miguel Sy DDS Dental caries into pulp (Primary Dx) 07/04/2024 9:00 AM EST Office Visit [facility] [address] [place] [address] Laura Dow Dental caries into pulp (Primary Dx); Dental calculus; Localized gingival recession; Dental caries; Missing teeth, acquired; Chronic dental pain 06/18/2024 9:30 AM EST Clinical Support [address] [address] Christine Spencer RN Forgetfulness 06/18/2024 Travel 06/01/[address] [address] Gavi Aldana DO 05/28/2024 9:45 AM EST Office Visit [address] [address] Gavi Aldana DO Type 1 diabetes mellitus [...] 08/28/2024 9:00 AM EDT Office Visit [facility] [address] [place] [address] José Miguel Sy, DDS [address] [place] [address] Health Maintenance Due Date Last Done Comments CT Colonography 1948 FIT DNA/Cologuard 1950 FIT 1950 FOBT 1950 Sigmoidoscopy 1950 Diabetes: Foot Exam 1958 Eye Exam 1958 Dental Prophylaxis 09/09/2022 03/10/2022, 0 09/25/2018, 11/16/2017, Additional history exists RSV Patients and Patients Aged 60 years or older (1 - 1-dose 75+ series) 11/24/2023 COVID-19 Vaccine (2023- season) 2024 07/14/2021, 06/23/2021 Depression Screening 06/15/2024 06/15/2023, 06/15/19 Diabetes: Urine Protein Screening 09/19/2024 09/20/2023, 10/13/2022, 10/19/2021, Additional history exists Lipid Panel 09/19/2024 09/20/2023, 10/04, 10/19/2021, Additional history exists SDOH Screening 10/23/2024 10/24/2023 Diabetes: Hemoglobin A1C 11/15/2024 03/2 025, 05/28/2024, 02/28/2024, Additional history exists Dental Oral Exam 01/02/2025 07/04/2024, 10/2021, 09/25/2018, [...] Procedure Name Priority Date/Time Associated Diagnosis Comments CT CHEST WO CONTRAST Routine 08/17/2024 9:18 AM EDT Pulmonary nodules CT HEAD WO CONTRAST Routine 08/17/2024 9 :09 AM EDT Forgetfulness RPR (MONITOR) W/REFL TITER Routine 08/15/2024 9:43 AM EDT Type 1 diabetes mellitus without complication (CMS/HCC) Essential hypertension Other hyperlipidemia Nonischemic cardiomyopathy (CMS/HCC) Immune thrombocytopenic purpura (CMS/HCC) Seropositive rheumatoid arthritis (CMS/HCC) Chronic pain of both shoulders Pulmonary nodules Multiple thyroid nodules Chronic cough Abnormal CT of the chest Nocturnal headaches Sleep-disordered breathing Forgetfulness Healthcare maintenance VITAMIN B12/FOLATE, SERUM PANEL Routine 08/15/2024 9:43 AM EDT Type 1 diabetes mellitus without complication (CMS/HCC) Essential hypertension Other hyperlipidemia Nonischemic cardiomyopathy (CMS/HCC) Immune thrombocytopenic purpura (CMS/HCC) Seropositive rheumatoid arthritis (CMS/HCC) Chronic pain of both shoulders Pulmonary nodules Multiple thyroid nodules Chronic cough Abnormal CT of the chest Nocturnal headaches Sleep-disordered breathing Forgetfulness Healthcare maintenance HEMOGLOBIN A1C Routine 08/15/2024 9:43 AM EDT Type 1 diabetes mellitus without complication (CMS/HCC) Essential hypertension Other hyperlipidemia Nonischemic cardiomyopathy (CMS/HCC) Immune thrombocytopenic purpura (CMS/HCC) Seropositive rheumatoid arthritis (CMS/HCC) Chronic pain of both shoulders Pulmonary nodules Multiple thyroid nodules Chronic cough Abnormal CT of the chest Nocturnal headaches Sleep-disordered breathing Forgetfulness Healthcare maintenance URINALYSIS, COMPLETE Routine 08/15/2024 9:42 AM EDT Microscopic hematuria GLUCOSE, WHOLE BLOOD Routine 07/17/2024 9:33 AM [...] Recently Relevant to Health Maintenance Results * CT Chest w/o Contrast (08/17/2024 9:18 AM EDT) Anatomical Region Laterality Modality Body, Chest Computed Tomogra phy 08/17/2024 9:18 AM EDT Narrative 08/17/2024 9:19 AM EDT ? [facility] ?[address] ?[place] [address] ? CT Scan Report ? Signed ? Patient: Sanchez Mueller,[place] ?MR#: ?? [id number] ? : 1950 ?Acct:[id number] ? Age/Sex: 73 / F ?ADM Date: 13/25 ? Loc: HO.CT ? Attending Dr: Gavi Aldana DO ? Ordering Physician: Gavi Aldana DO ?? Date of Service: 08/16/24 ?? Procedure(s): CT chest wo IV con ?? Accession Number(s): [id number] ? cc: Gavi Aldana DO ? Report Number: ?? [id number]: Total DLP = ??117.00 mGy-cm ? CLINICAL HISTORY: f u lung nodule ? CT chest without contrast ? Comparison: 10/13/2023 ? Findings: ?? There is stable cardiomegaly. ?? There is new small pericardial effusion. Cardiac pacemaker is again noted. ?? Thyromegaly again noted. Correlate clinically and with laboratory values. ?? There is stable 5 mm right lower lobe pulmonary nodule. ?? There are no new pulmonary nodules. Scattered pulmonary scarring and ?? linear subsegmental atelectasis. There is mild left upper lobe ?? ground-glass pulmonary opacity similar to prior ?? The visualized mediastinum are unremarkable. ?? No consolidative infiltrates or pleural effusions. ?? Stable intraspinal calcified lesion T5-T6 level highly likely calcified ?? meningioma stable cord compression and central canal stenosis, correlate ?? with clinical history and physical exam ?? The upper abdomen is unremarkable. ?? No acute fractures. ? IMPRESSION: ?? Stable 5 mm right lower lobe pulmonary nodule ?? Stable cardiomegaly, new small pericardial effusion, cardiac pacemaker ?? again noted ?? Chronic and incidental findings as above ? This document has been electronically signed by: Baldev Yousif MD on ?? 08/17/2024 09:18:43 ? Dictated By: ?Baldev Yousif MD ? Signed By: ?<Electronically signed by Baldev Yousif MD in OV> ? 08/17/24918 ? DD/ 7 ? TD/TT: 08/17/24917 ? Truck Unloader: ? Procedure Note Jose Da Silva - 08/17/[address] [address] [address] Scan Report Signed Patient: Candi Solomon EMR#: [id number] : 9Acct:[id number] Age/Sex: 73 / FADM Date: 08/16/24 Loc: HO.CT Attending Dr: Gavi Aldana DO Ordering Physician: Gavi Aldana DO Date of Service: 08/16/24 Procedure(s): CT chest wo IV con Accession Number(s): [id number] cc: Gavi Aldana DO Report Number: [id number]: Total DLP = 117.00 mGy-cm CLINICAL HISTORY: f u lung nodule CT chest without contrast Comparison: 10/13/2023 Findings: There is stable cardiomegaly. There is new small pericardial effusion. Cardiac pacemaker is again noted. Thyromegaly again noted. Correlate clinically and with laboratory values. There is stable 5 mm right lower lobe pulmonary nodule. There are no new pulmonary nodules. Scattered pulmonary scarring and linear subsegmental atelectasis. There is mild left upper lobe ground-glass pulmonary opacity similar to prior The visualized mediastinum are unremarkable. No consolidative infiltrates or pleural effusions. Stable intraspinal calcified lesion T5-T6 level highly likely calcified meningioma stable cord compression and central canal stenosis, correlate with clinical history and physical exam The upper abdomen is unremarkable. No acute fractures. IMPRESSION: Stable 5 mm right lower lobe pulmonary nodule Stable cardiomegaly, new small pericardial effusion, cardiac pacemaker again noted Chronic and incidental findings as above This document has been electronically signed by: Baldev Yousif MD on 08/17/2024 09:18:43 Dictated By: Baldev Yousif MD Signed By: <Electronically signed by Baldev Yousif MD in OV> 08/17/24918 DD/ 7 TD/TT: 08/17/24917 Truck Unloader: us Gavi Aldana DO IMG CT PROCEDURES Final Resu lt * CT Head w/o Contrast (08/17/2024 9:09 AM EDT) Anatomical Region Laterality Modality Head, Neck Computed Tomogra phy 08/17/2024 9:09 AM EDT Narrative 08/17/2024 9:11 AM EDT ? [facility] ?[address] ?[place] [address] ? CT Scan Report ? Signed ? Patient: Sanchez Mueller,[place] ?MR#: ?? [id number] ? : 1950 ?Acct:[id number] ? Age/Sex: 73 / F ?ADM Date: 08/16/24 ? Loc: HO.CT ? Attending Dr: Gavi Aldana DO ? Ordering Physician: Gavi Aldana DO ?? Date of Service: 08/16/24 ?? Procedure(s): CT head/brain wo IV con ?? Accession Number(s): [id number] ? cc: Gavi Aldana DO ? Report Number: ?? [id number]: Total DLP = ??715.00 mGy-cm ? CLINICAL HISTORY: worsening forgetfulness ? CT head without contrast ? Comparison: Head CT 10/10/2013 ? Findings: ?? No intra-axial mass, midline shift, hydrocephalus, or acute hemorrhage. ?? There are mild central and cortical involutional changes. There are mild ?? old small-vessel white matter ischemic changes. ?? The visualized paranasal sinuses and mastoid air cells are normal. ?? The orbits are unremarkable. ?? No skull fracture. ? IMPRESSION: ?? No acute intracranial findings. ?? Mild central and cortical involutional changes, mild old small-vessel ?? white matter ischemic changes ? This document has been electronically signed by: Baldev Yousif MD on ?? 08/17/2024 09:09:00 ? Dictated By: ?Baldev Yousif MD ? Signed By: ?<Electronically signed by Baldev Yousif MD in OV> ? 08/17/24 0910 ? DD/ ? TD/TT: 08/17/24908 ? Truck Unloader: ? Procedure Note Jose Da Silva - 08/17/[address] [address] [address] Scan Report Signed Patient: Candi Solomon EMR#: [id number] : 9Acct:[id number] Age/Sex: 73 / FADM Date: 08/16/24 Loc: HO.CT Attending Dr: Gavi Aldana DO Ordering Physician: Gavi Aldana DO Date of Service: 08/16/24 Procedure(s): CT head/brain wo IV con Accession Number(s): [id number] cc: Gavi Aldana DO Report Number: [id number]: Total DLP = 715.00 mGy-cm CLINICAL HISTORY: worsening forgetfulness CT head without contrast Comparison: Head CT 10/10/2013 Findings: No intra-axial mass, midline shift, hydrocephalus, or acute hemorrhage. There are mild central and cortical involutional changes. There are mild old small-vessel white matter ischemic changes. The visualized paranasal sinuses and mastoid air cells are normal. The orbits are unremarkable. No skull fracture. IMPRESSION: No acute intracranial findings. Mild central and cortical involutional changes, mild old small-vessel white matter ischemic changes This document has been electronically signed by: Baldev Yousif MD on 08/17/2024 09:09:00 Dictated By: Baldev Yousif MD Signed By: <Electronically signed by Baldev Yousif MD in OV> 08/17/24909 DD/ 8 TD/TT: 08/17/24908 Truck Unloader: us Gavi Aldana DO IMG CT PROCEDURES Final Resu lt * Vitamin B12 (Cobalamin) and Folate Panel, Serum (08/15/2024 9:43 AM EDT) Vitamin B12 726 200 - 900 pg/mL [facility] Comment:NORMAL 200-900 PG/ML INDETERMINATE 160-199 PG/ML DEFICIENT < 160 PG/ML Folate 10.0 > or = 4.0 ng/mL [facility] Comment:Reference Values:> o r = 4.0 ng/mL< 4.0 ng/mL suggests folate deficiency Methotrexate, aminopterin and folinic acid(leucovorin) are chemotherapeutic agents whose molecularstructures are similar to folate; therefore, the Architectfolate assay cannot be used for patients using these drugs. Blood Venous blood specimen / Unknown 08/15/2024 9:43 AM EDT 08/15/2024 11:45 AM EDT us Gavi Aldana DO LAB BLOOD ORDERABLES Final R esult [facility] [address] [place] [address] [phone] * RPR (Monitor) with Reflex to??Titer (08/15/2024 9:43 AM EDT) RPR (Monitor) w/Refl Titer NON-REACTI VE NON-REACT CAPRICE [facility] Comment:THIS TEST WAS PERFOR MED AT:[employer] [place] [phone] ULLOA MD Rapid Plasma Reagin Ab Titer TNP [facility] Blood Venous blood specimen / Unknown 08/15/2024 9:43 AM EDT 08/15/2024 11:45 AM EDT us Gavi Aldana DO LAB BLOOD ORDERABLES Final R esult [facility] [address] [place] [address] [phone] * (ABNORMAL) Hemoglobin A1c (08/15/2024 9:43 AM EDT) Hemoglobin A1c 8.0(H) <6.0 % [facility] Comment:Hemoglobin A1C Refer ence Range Adults: 4.8 - 6.0 % Non diabetic: < 6.0 % Goal: < 7.0 %Additional Action Suggested: > 8.0 %Note: Hemoglobin A1c results are invalid for patients with abnormal amounts of HbF. Blood transfusions may impact the HbA1c concentration in the patient sample. Estimated Average Glucose 183 mg/dL [facility] Comment:eAG = Estimated ave rage glucose which is %A1C expressed asaverage glucose, using the formula of the Q1M-ZjmtdabVayxggx Glucose study (ADAG), Diabetes Care, Vol.31,#8,Jan. 2007 Blood Venous blood specimen / Unknown 08/15/2024 9:43 AM EDT 08/15/2024 11:45 AM EDT Gavi Aldana DO LAB BLOOD ORDERABLES Final R esult [facility] [address] [place] [address] [phone] * (ABNORMAL) Urinalysis Complete (08/15/2024 9:42 AM EDT) Color Urine Dark Yellow [facility] Appearance Urine Clear [facility] PH 5.5 5.0 - 9.0 [facility] Glucose Urine UA Negative Negative mg/dL [facility] Urine Blood Small (1+)(A) Negative [facility] Specific [place] - Urine >=1.030(H) 1.005 - 1.025 [facility] Urine Protein 300 (3+)(A) Neg-Trace mg/dL [facility] Urine Ketones Trace Negative mg/dL [facility] Nitrite Urine Negative Negative [facility] Leukocyte Esterase Urine Negative Negative [facility] RBC Urine >20(A) 0 - 2 /HPF [facility] Urine WBC 0-5 0 - 5 /HPF [facility] Urine Squamous Epithelial Cell 0-2 0 - 2 /HPF [facility] Urine Bacteria None Seen None Seen [facility] Hyaline Casts, Urine 3-5 0 - 2 /LPF [facility] Urine (Urine, Random) 08/15/2024 9:42 AM EDT 08/15/2024 11:25 AM EDT us Gavi Aldana DO LAB URINE ORDERABLES Final R esult Performing Organization Address City/[facility]/ZIP Co de Phone Number [facility] [address] [place] [address] [phone] * (ABNORMAL) Glucose, Whole Blood (07/17/2024 9:33 AM EST) Glucose, Whole Blood 287(H) 60 - 115 mg/dL [facility] Comment:METER #: [id number] 5Testing performed in the Endocrinology Department [address] , [address], [facility]. 07/17/2024 9:33 AM EST 07/17/2024 9:38 AM EST Generic External Data Provider LAB BLOOD ORDERAB LES Final Result [facility] [address] [place] [address] [phone] * (ABNORMAL) POCT HGB A1C (05/28/2024 [...] / Unknown 05/28/2024 9:22 AM EST Gavi Jurjuliann DO POINT OF CARE TEST ENTER/DIAMANTE T ORDERABLES Final Result * Hepatitis Panel, General (05/09/2024 9:54 AM EST) Pathologist [facility] Hepatitis A IgM Nonreactive Nonreactive [facility] Comment:IgM antibodies to MCCANN V not detected; does not exclude earlyacute or recovered HAV infection. ~Hepatitis B Surface Antibody REACTIVE Nonreactive [facility] Comment:REACTIVE: > 11.99 mI U/mL Hepatitis B Core Antibody Nonreactive Nonreactive [facility] Hepatitis C Antibody Nonreactive Nonreactive [facility] Comment:Antibodies to HCV no t detected; does not exclude early acuteHCV infection. Hepatitis B Surface Ag Negative Negative [facility] 05/09/2024 9:54 AM EST 05/09/2024 9:54 AM EST us Generic External Data Provider LAB BLOOD ORDERAB LES Final Result Performing Organization Address [facility] Co de Phone Number [facility] [address] [place] [phone] * Lipid Panel, Standard (09/20/2023 7:27 AM EDT) Triglycerides 96 <150 mg/dL [facility] Comment:Desirable Triglyceri de: less than 150 mg/dLBorderline High Triglyceride 150-199 mg/dLHigh Triglyceride: 200-499 mg/dLVery High Triglyceride: greater than or equal to 5OO mg/dL Cholesterol 139 <200 mg/dL [facility] Comment:Desirable Cholestero l: less than 200 mg/dLBorderline High Cholesterol: 200-239 mg/dLHigh Cholesterol: greater than 239 mg/dL LDL Cholesterol Calculated 69 <100 mg/dL [facility] Comment:Desirable LDL: less than 100 mg/dLNear Optimal/Above Optimal LDL: 110- 129 mg/dLBorderline High LDL: 130-159 mg/dLHigh LDL: 160-189 mg/dLVery High LDL: greater than or equal to 190 mg/dL HDL Cholesterol 51 >40 mg/dL [facility] Comment:Desirable HDL: great er than 40 mg/dL Note: This HDL assay may give artificially low results in patients with liver disease. Blood Venous blood specimen / Unknown 09/20/2023 7:27 AM EDT 09/20/2023 7:27 AM EDT us Gavi Aldana DO LAB BLOOD ORDERABLES Final R esult Performing Organization Address [facility]/ZIP Co de Phone Number [facility] [address] [place] [address] [phone] * (ABNORMAL) Albumin, Random Urine W/Creatinine (09/20/2023 7:23 AM EDT) Creatinine, Urine 211.65 mg/dL [facility] Microalbumin Urine 817.0 mg/L H [facility] Microalbum Creatinine Ratio Ur 386.0(H) <30 ug/mg cr [facility] Comment:Albumin/Creatinine R atio Reference Ranges: Normal: < 30 ug/mg creatinine Microalbuminuria: 30 - 300 ug/mg creatinineClinical Albuminuria: > 300 ug/mg creatinine Urine (Urine, Random) 09/20/2023 7:23 AM EDT 09/20/2023 7:41 AM EDT Gavi Adlana DO LAB URINE ORDERABLES Final R esult [facility] [address] [place] [phone] * Hm Colonoscopy (07/28/2021 2:52 PM EST) Historical Provider MD HEALTH MAINTENANCE Final Result from Last 3 Months or Most Recently Relevant to Health Maintenance Insurance [facility] [address] [place] [id number] Care Teams Steamship Agent Relationship Specialty Start Date End Date Gavi Aldana DO [address] [place] [address] PCP - General Family Medicine 06/06/18
--- OUTSIDE RECORDS SUMMARY | 2024-08-23 09:31 | XMS_ITS | Data Portability ---
Author Organization [email or web address] Address [address] [place] [address] Assessment Encounter Date Assessment Date Assessment LastModified by Organization Details LastModified Time 03/17/2023 03/17/2023 As noted, we were called to see this patient regarding concerns of cough. Evaluation in the field was performed by my software application tester colleague, as noted above, I provided real-time [...] SNOMED-CT Code Diagnosis ICD10 Code Diagnosis Note [id number] Amparo Marley MD Main - [address] [phone] 03/17/2023 19:40:50 03/17/2023 19:55:52 Health Concerns Section Related Observation LastModified by Organization Detai ls LastModified Time None Recorded Concern Status LastModified by Organization Details LastModified Time None Recorded Advance Directives Directive None Recorded Payers Encounter Date Sequence Insurance Name Policy Number Policy Ivy Covered Member ID Ivy Member ID Guarantor Name 03/17/2023 1 [facility] - DOS ON OR AFTER 2022 - DUAL ELIGIBLE - ALF OPTIONS AND ONE CARE (MEDICARE REPLACEMENT/ADV ANTAGE - HMO) Candi Sanchez [id number] Candi Sanchez Notes Date Note Type Note [...] CRC RN DID NOT NEED FURTHER INFO [facility] HPI: 3 weeks, sore throat throughout, cough throughout. dry cough. has never had something like this before. some sour taste, depending on what she ate. no abdominal, a little epigastric burning. Saw provider, got tessalon perles, initially helpful but then. 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 Amparo Marley MD [address] [facility],[address], [place], [phone], [employer] 03/17/2023 19:55:51 OBGyn Episode No OBEpisode recorded.
--- OUTSIDE RECORDS SUMMARY | 2024-08-23 09:31 | XMS_ITS | Encounter Summary ---
Author Organization [facility] Address [address] [place] [address] [address] [place] [address] Care Team Providers Care Information Technology Officer Name Role Phone Gavi Aldana DO Primary Care Provider + [phone] Encounter Details Date Type Department Care Team (Late st Contact Info) Description 12/14/2022 Orders Only [facility] [address] [place] [address] Gavi Duarte LPN Social History Tobacco Use [...] Description 08/28/2024 9:00 AM EDT Office Visit [facility] [address] [place] [address] José Miguel Sy DDS [address] [place] [address] documented as of this encounter Visit Diagnoses Not on filedocumented in this encounter Care Teams Information Technology Officer Relationship Specialty Start Date End Date Gavi Aldana DO [address] [place] [address] PCP - General Family Medicine 06/06/18 documented as of this encounter
--- OUTSIDE RECORDS SUMMARY | 2024-08-23 09:31 | XMS_ITS | Encounter Summary ---
Author Organization [facility] Address [address] [place] [address] [address] [place] [address] Care Team Providers Care Bulk Mail Technician Name Role Phone Gavi Aldana DO Primary Care Provider + [phone] Encounter Details Date Type Department Care Team (Latest Contact Info) Description 09/25/[address] [facility] CONVERSIONS Dental, Provider, DDS Social [...] 9:00 AM EDT Office Visit [facility]ULT [facility] [address] [place] [address] José Miguel Sy DDS [address] [place] [address] documented as of this encounter Visit Diagnoses Not on filedocumented in this encounter Care Teams Bulk Mail Technician Relationship Specialty Start Date End Date Gavi Aldana DO [address] [place] [address] PCP - General Family Medicine 06/06/18 documented as of this encounter
== END 2024-08-23 09:00 | disposition home or self-care (01) ==
LOC: HO.US 08:59
PROVIDERS: PCP Family Medicine; Visit Provider Student in an Organized Health Care Education/Training Program
DX: E04.1 Nontoxic single thyroid nodule (principal)
CPT/HCPCS: 76536

== ENCOUNTER → 2024-08-23 09:01 | Outpatient (BNV) | payer OTHER, SELFPAY | PROVIDERS: PCP Family Medicine; Visit Provider Radiology Diagnostic Radiology | DX: E04.1 Nontoxic single thyroid nodule (principal) | CPT/HCPCS: 76536 ==

== ENCOUNTER 2024-08-24 13:50 | Outpatient (AMB) | payer OTHER, SELFPAY ==
[2024-08-24 14:38] VITALS: BP 134/80; PULSE 73; O2SAT 97; BMI 23.9
--- NOTE | 2024-08-24 14:38 | MHC.OFFVIS ---
Vital Signs 08/24/24 14:38 Height 5 ft 3 in Weight 134 lb 11.239 oz BMI 23.9 BP 134/80 Blood Pressure Location Lt brachial Position Sitting Pulse 73 Pulse Source Pulse Oximeter Pulse Oximetry (%) 97 Oxygen Delivery Method Room Air Intake Visit Reasons: follow up Intake Note: Patient presents for a follow up visit today on ployarticular osteoarthritis. Treating Plant Operator Required: Yes Treating Plant Operator Name: Boyd Galan233 Allergies No Known Allergies Allergy (Verified 08/24/24 14:43) Medication List - Last Reconciled 08/24/24 by Megan Trinidad MD acetaminophen ER (Arthritis Pain Relief (acetaminophen) ER) 1 tab PO Q8H PRN acetone (urine) test (Ketone Urine Test strips) prn tid for glucose staying over 250 or symptoms of nausea/vomiting apixaban (Eliquis) 5 mg PO BID ascorbic acid (vitamin C) 500 mg PO DAILY atorvastatin 10 mg PO DAILY azithromycin For 250 mg dose pack: take 500 mg today (day 1), then 250 mg for 4 days (days 2-5) PO baclofen 10 mg PO TID PRN benzonatate 100 mg PO TID PRN 30 days blood sugar diagnostic As directed blood sugar diagnostic (FreeStyle Lite Strips) TEST BLOOD SUGAR FOUR TIMES DAILY blood-glucose meter (FreeStyle Lite Meter kit) As directed blood-glucose meter,continuous (Dexcom G7 Stitch Separator) As directed blood-glucose sensor (Dexcom G7 Sensor device) As directed Breo Ellipta 200-25 mcg/dose (fluticasone furoate-vilanterol) 1 inh inhalation DAILY 30 days NS cholecalciferol (vitamin D3) 50 mcg PO DAILY codeine-guaifenesin 10-100 mg/5 mL 10 mL PO Q4-6H PRN digoxin (Digox) 125 mcg PO DAILY famotidine 40 mg PO DAILY ferrous sulfate (FeroSul) 325 mg PO DAILY fluticasone propionate 50 mcg/actuation 2 sprays intranasal DAILY PRN folic acid 1 mg PO DAILY furosemide 20 mg PO DAILY glucagon 3 mg/actuation (Baqsimi) 3 mg intranasal .twice PRN 30 days MDD 6 mg glucose 8 - 16 grams PO NEEDED PRN ibuprofen 600 mg PO TID insulin aspart U-100 (Novolog FlexPen U-100 Insulin aspart) subcutaneously inject 4-7 units 3 times a day; 90 days insulin degludec (Tresiba FlexTouch U-200 insulin) 22 units (0.11 mL) subcut DAILY 30 days lancets (TRUEplus Lancets) As directed methotrexate sodium 10 mg (4 x 2.5 mg) PO QWEEK 90 days metoprolol tartrate 100 mg PO BID 30 days naloxone 4 mg/actuation (Narcan) 4 mg intranasal NEEDED PRN omeprazole 40 mg PO BID pen needle, diabetic (UltiCare Pen Needle) As directed pen needle, diabetic (BD Ultra-Fine Thania Pen Needle) USE DIRECTED FOUR TIMES DAILY sacubitril-valsartan 49-51 mg (Entresto) 1 tab PO BID sennosides-docusate sodium 8.6-50 mg (Senokot-S) 2 tab-caps (2 x 8.6-50 mg) PO BEDTIME spironolactone 25 mg PO DAILY HPI Comments Details: Patient is a 73-year-old female with hypertension, diabetes, coronary artery disease, heart failure with reduced ejection fraction, atrial fibrillation on digoxin and Eliquis who presents to reestablish care for management of rheumatoid arthritis Interval History: Patient last seen 05/09/2024 with me. At that visit she was re-establishing care for the management of her rheumatoid arthritis. She had not taken any medications for several years and was having symptoms consistent with uncontrolled rheumatoid arthritis. Based on this she was started on a low dose of methotrexate Noted that the MTx help but still with swelling to her wrists and hands Rheumatologic History: Patient diagnosed with seropositive rheumatoid arthritis several years ago. Was maintained on methotrexate however was lost to follow up since 2020. Previously taking methotrexate but that has since stopped. Sometimes intermittently has flares of her disease with swelling to her hands and her wrists but this would respond to [id number] Tylenol Arthritis. Has prolonged morning stiffness up to an hour. Her main complaints are her bilateral shoulders for which she recently got a steroid injection 1 month ago for. She also complains of knee pain worse at the end of the day impairs her ability to ascend stairs. Denies any shortness of breath, unexplained weight loss. 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 Current Rheumatology Medication(s): Methotrexate 10mg weekly Folic acid 1mg daily [facility] Medical History Polyarticular osteoarthritis Thyroid nodule greater than or equal to 1.5 cm in diameter incidentally noted on imaging study Thyroid nodule Helicobacter pylori gastritis Chronic cough On beta justine at home Nonischemic cardiomyopathy CHF (congestive heart failure) CAD (coronary artery disease) Thrombocytopenia Anemia Chronic GERD Elevated liver enzymes Seropositive rheumatoid arthritis Obesity (BMI 30-39.9) Vitamin D deficiency Dyslipidemia Hypertension 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 Mother No problems noted. Maternal Aunt Diabetes mellitus Social History Household Members: None Housing: Apartment Are you a primary manager career to a significant other at home: No Do you presently have visiting nurse or other home services: Yes (telephone) Alcohol intake: never Patient Tobacco Use Status: Never used Tobacco service: No Current occupational status: retired Current occupation: rt handed Review of Systems Const Details: Review of Systems Constitutional: Denies fever, chills, weight loss ENT: Denies vision changes, eye pain or eye redness, dental caries, dry mouth GI: Denies nausea, vomiting, diarrhea, abdominal pain, change in BM Pulm: Denies SOB, THOMPSON, hemoptysis, wheezing Cards: Denies chest pain, palpitations Skin: Denies Raynaud's, rash, nail changes, photosensitivity, FIRMWARE DEVELOPER: Denies headaches, weakness, paresthesias, recurrent falls MSK: as per HPI All other systems reviewed and are unremarkable except noted above Physical Exam Vital Signs: Last Vital Signs Pulse 73 08/24/24 14:38 BP 134/80 08/24/24 14:38 Pulse Ox 97 08/24/24 14:38 Oxygen Delivery Method Room Air 08/24/24 14:38 BMI result Body Mass Index 23.9 Physical Examination CONSTITUITIONAL Patient alert and cooperative. Well appearing and in no apparent painful distress HEENT Conjunctiva and sclera clear. ?Pupils equal round and reactive to light. ?No lymphadenopathy. ? CHEST/RESPIRATORY SYSTEM Normal respiratory effort and able to speak in complete sentences. ?Clear to auscultation bilaterally. ?No crackles, rales, rhonchi, wheezes heard. CARDIAC SYSTEM Regular rate and rhythm. ?S1 and S2 heard no murmurs. ?Radial pulses intact bilaterally MSK Hands: ?Good field cane scale clerk strength bilaterally - 5/5. ?Florence-neck deformity noted to the left 5th digit. Mild tenderness to palpation of the 2nd and 3rd MCPs bilaterally. Wrists: ?Full range of motion at the wrists. Mild tenderness to palpation of bilateral wrists with some fullness noted. Elbows: Full range of motion without pain. No tenderness, weakness, swelling, increased warmth or erythema. Shoulders: Full range of motion without pain. No tenderness, weakness, swelling, increased warmth or erythema. Knees: ?Full range of motion. ?No tenderness, swelling, increased warmth or erythema.? Crepitations noted bilaterally Ankles: Full range of motion. ?No tenderness, swelling, increased warmth or erythema.? Feet: ?Negative squeeze test. ?No tenderness to palpation or swelling of the MTPs. SKIN Skin intact without rashes. Results Reviewed Results Reviewed: Laboratory Tests 05/09/24 07/31/24 08/15/24 09:54 08:43 09:43 WBC 6.1 RBC 4.81 Hgb 11.1 L Hct 37.0 Plt Count 118 L 126 L ESR 10 Sodium 140 Potassium 3.7 Chloride 106 Carbon Dioxide 29 BUN 12 Creatinine 0.78 Calcium 9.2 Total Bilirubin 0.3 Direct Bilirubin 0.1 AST 34 H ALT 22 Alkaline Phosphatase 123 H C-Reactive Protein < 0.10 25-OH Vitamin D Total 19.2 L Immunology Labs 04/12/19 06/18/19 11:47 11:25 Rheumatoid Factor 55.0 H Cycl Citrul Peptide IgG >250 H DARREN Screen Positive H DARREN Titer 1:80 H Infectious serologies 05/09/24 09:54 Hepatitis A IgM Ab Nonreactive Hep Bs Antigen Negative Hep Bs Antibody REACTIVE Hep B Core Total Ab Nonreactive Hepatitis C Ab (EIA) Nonreactive Assessment & Plan Assessment & Plan (1) Seropositive rheumatoid arthritis: Code(s): M05.9 - Rheumatoid arthritis with rheumatoid factor, unspecified Category: Medical Plan: #Seropositive RA Patient is a 73-year-old female with seropositive rheumatoid arthritis here today for follow up. Rheumatoid arthritis is currently not under control and she was in continued flare of her disease. Because of her currently uncontrolled diabetes we are unable to give her prednisone. Her last blood sugar random was 287. My concern is that if we give her prednisone we could push her into HHS/DKA She also can not take ibuprofen because she is on blood thinners and has already had blood in her urine that is currently being worked up by her primary. We will increase her methotrexate from 10 mg to 15 mg weekly Plan - Methotrexate 15mg weekly PO - Folic acid 1mg daily - RTC 3 months - Labs before visit: CBC, CMP, ESR, CRP, hepatitis panel, T spot (2) Polyarticular osteoarthritis: Code(s): M15.9 - Polyosteoarthritis, unspecified Category: Medical Plan: #Polyarticular OA Polyarticular OA involving shoulders and knees. Given that patient is on Eliquis would not recommend Celebrex. Has tried topical diclofenac in the past with out much relief. Has also tried physical therapy without much help. At this time limited in therapeutic that we can offer. Tried tramadol in the past which helped but she had stomach issues with it. She can continue receiving injections p.r.n.. Last injection for shoulders was 04/2024 (3) senior living methotrexate user: Code(s): Z79.899 - Other assisted (current) drug therapy Category: Medical Plan: #Long-term Current Use of Methotrexate Discussed with patient the benefits and risks of methotrexate for managing their rheumatic condition Benefits include reduced pain, reduced mortality, maintenance of remission and reduction of flares Risks include oral ulcers, photosensitivity, hepatotoxicity, hematologic toxicity, pneumonitis, flu-like symptoms (especially day after administration), nodulosis, lymphomas ? Limit alcohol and avoid Bactrim ? Monitoring: ?CBC, BMP, LFTs every 3-4 months and hepatitis serologies as needed Plan I spent 40 minutes reviewing the record and labs, seeing the patient, discussing the treatment plan and documenting in the medical record ? Orders: Orders Complete Blood Count Auto Diff 3 Months M05.9 - Rheumatoid arthritis with rheumatoid factor, unspecified Comprehensive Met. Panel 3 Months M05.9 - Rheumatoid arthritis with rheumatoid factor, unspecified C Reactive Protein 3 Months M05.9 - Rheumatoid arthritis with rheumatoid factor, unspecified Hepatitis A,B,C Profile 3 Months M05.9 - Rheumatoid arthritis with rheumatoid factor, unspecified Erythrocyte Sedimentation Rate 3 Months M05.9 - Rheumatoid arthritis with rheumatoid factor, unspecified T Spot TB 3 Months M05.9 - Rheumatoid arthritis with rheumatoid factor, unspecified Medications: Changed From methotrexate sodium 10 mg (4 x 2.5 mg) PO QWEEK 90 days 52 tabs 1RF M05.9 - Rheumatoid arthritis with rheumatoid factor, unspecified To methotrexate sodium 15 mg (6 x 2.5 mg) PO QWEEK 90 days 78 tabs 1RF M05.9 - Rheumatoid arthritis with rheumatoid factor, unspecified Refilled folic acid 1 mg PO DAILY 90 tabs 1RF M05.9 - Rheumatoid arthritis with rheumatoid factor, unspecified Coding Level of Care Code Est Pt Level 5 (23789) Complex EM visit Add On G2211 Diagnoses Seropositive rheumatoid arthritis M05.9 Polyarticular osteoarthritis M15.9 senior living methotrexate user Z79.899
--- OUTSIDE RECORDS SUMMARY | 2024-08-24 16:09 | XMS_ITS | Encounter Summary ---
Author Organization [employer] Address [address] [facility] [address] [place] [address] Care Team Providers Care Chromium Plater Name Role Phone Gavi Aldana DO Primary Care Provider + [phone] Reason for Visit * Reason Comments Med Refill Encounter Details Date Type Department Care Team ([facility] st Contact Info) Description 04/04/2024 Refill [facility] [address] [place] [address] Gavi Aldana DO [address] [place] [address] Social History Tobacco Use Types Packs/Day Years [...] Visit [facility] [address] [place] [address] José Miguel Sy DDS [address] [place] [address] documented as of this encounter Visit Diagnoses Not on filedocumented in this encounter Additional Health Concerns Assessment Noted Time PHQ-9 Depression Total Score: 1 06/15/19 24 10:29 AM EST documented as of this encounter Care Teams Chromium Plater Relationship Specialty Start Date End Date Gavi Aldana DO [address] [place] [address] PCP - General Family Medicine 06/06/18 documented as of this encounter
--- OUTSIDE RECORDS SUMMARY | 2024-08-24 16:09 | XMS_ITS | Data Portability ---
Author Organization [employer] Address [address] [place] [address] Assessment Encounter Date Assessment Date Assessment LastModified by Organization Details LastModified Time 03/17/2023 03/17/2023 As noted, we were called to see this patient regarding concerns of cough. Evaluation in the field was performed by my mental health consultant colleague, as noted above, I provided real-time [...] SNOMED-CT Code Diagnosis ICD10 Code Diagnosis Note [id number] Amparo Marley MD Main - [address] [address] 03/17/2023 19:40:50 03/17/2023 19:55:52 Health Concerns Section Related Observation LastModified by Organization Detai ls LastModified Time None Recorded Concern Status LastModified by Organization Details LastModified Time None Recorded Advance Directives Directive None Recorded Payers Encounter Date Sequence Insurance Name Policy Number Policy Ivy Covered Member ID Ivy Member ID Guarantor Name 03/17/2023 1 [facility] - DOS ON OR AFTER 2022 - DUAL ELIGIBLE - INTERMEDIATE OPTIONS AND ONE CARE (MEDICARE REPLACEMENT/ADV ANTAGE - HMO) Candi Sanchez [id number] Candi Sanchez Notes Date Note Type Note [...] CRC RN DID NOT NEED FURTHER INFO [facility] HPI: 3 weeks, sore throat throughout, cough throughout. dry cough. has never had something like this before. some sour taste, depending on what she ate. no abdominal, a little epigastric burning. Saw provider, got tessalon perles, initially helpful but then. a little congested, sore throat.she has a printer assistant - she is not sure why, thinks b/c at some point she had water on her lungs when living in [place] related to her heart but that hasn't happened in a long time. Amparo Marley MD [address] [facility],[address], [place], [address], [employer] 03/17/2023 19:55:51 OBGyn Episode No OBEpisode recorded.
--- OUTSIDE RECORDS SUMMARY | 2024-08-24 16:09 | XMS_ITS | Encounter Summary ---
Author Organization [employer] [facility] Address [address] [place] [address] [address] [place] [address] Care Team Providers Care Carousel Operator Name Role Phone Gavi Aldana DO Primary Care Provider + [phone] Encounter Details Date Type Department Care Team (Latest Contact Info) Description 03/10/2022 Abstract [facility] Dental, Provider, DDS Social History [...] Description 08/28/2024 9:00 AM EDT Office Visit [facility] [address] [place] [address] José Miguel Sy DDS [address] [place] [address] documented as of this encounter Visit Diagnoses Not on filedocumented in this encounter Care Teams Carousel Operator Relationship Specialty Start Date End Date Gavi Aldana DO [address] [place] [address] PCP - General Family Medicine 06/06/18 documented as of this encounter
--- OUTSIDE RECORDS SUMMARY | 2024-08-24 16:09 | XMS_ITS | Encounter Summary ---
Author Organization [employer] [facility] Address [address] [place] [address] [address] [place] [address] Care Team Providers Care Director Of Corporate Sales Name Role Phone Gavi Aldana DO Primary Care Provider + [phone] Encounter Details Date Type Department Care Team (Late st Contact Info) Description 07/22/2022 Orders Only [facility] [address] [place] [address] Gavi Duarte LPN Social History Tobacco Use [...] Description 08/28/2024 9:00 AM EDT Office Visit [facility] [address] [place] [address] José Miguel Sy DDS [address] [place] [address] documented as of this encounter Visit Diagnoses Not on filedocumented in this encounter Care Teams Director Of Corporate Sales Relationship Specialty Start Date End Date Gavi Aldana DO [address] [place] [address] PCP - General Family Medicine 06/06/18 documented as of this encounter
--- OUTSIDE RECORDS SUMMARY | 2024-08-24 16:09 | XMS_ITS | Encounter Summary ---
Author Organization [employer] [facility] Address [address] [facility] [address] [place] [address] Care Team Providers Care Certified Coder Name Role Phone JovanGavi Primary Care Provider + [phone] Reason for Referral * Medications - Closed Specialty Diagnoses / Procedures Referred By Humphrey barrera Referred To Contact Diagnoses Acute pain of right shoulder Veena White NP [address] [place] [address] Phone: tel: fax: Referral ID Status Reason Start Date Expiration Date Visits Re quested Visits Authorized [id number] Closed 08/15/2024 08/15/2025 1 1 Reason for Visit * Reason Comments Back Pain Encounter Details Date Type Department Care Team (Late st Contact Info) Description 08/15/2024 8:40 AM EDT Office Visit [facility] [address] [place] [address] Veena White NP [address] [place] [address] Acute pain of right shoulder (Primary Dx); [...] illness, injury, or hospitalization. Here with Vi TEST ANALYST Back Pain Pertinent negatives include no abdominal [...] PCP if persistent or fails to resolve Ivorian Translation: Provided by [facility] staff member Gena documented in this encounter Plan of Treatment Upcoming Encounters Date Type Department Care Team (Late st Contact Info) Description 08/28/2024 9:00 AM EDT Office Visit [facility] [address] [place] [address] José Miguel Sy DDS [address] [place] [address] documented as of this encounter Visit Diagnoses Diagnosis Acute pain of right shoulder- Primary Hand swelling Swelling of limb documented in this encounter Additional Health Concerns Assessment Noted Time PHQ-9 Depression Total Score: 1 06/15/19 24 10:29 AM EST documented as of this encounter Care Teams Certified Coder Relationship Specialty Start Date End Date Gavi Aldana DO [address] [place] [address] PCP - General Family Medicine 06/06/18 documented as of this encounter
--- OUTSIDE RECORDS SUMMARY | 2024-08-24 16:09 | XMS_ITS | Encounter Summary ---
Author Organization [employer] [facility] Address [address] [place] [address] [address] [place] [address] Care Team Providers Care Rehabilitation Counsellor Name Role Phone Gavi Aldana DO Primary Care Provider + [phone] Encounter Details Date Type Department Care Team (Late st Contact Info) Description 06/22/2022 Orders Only [facility] [address] [place] [address] Tamara Floyd LPN Social History Tobacco Use [...] 9:00 AM EDT Office Visit [facility] [address] [place] [address] José Miguel Sy DDS [address] [place], [place] [phone] documented as of this encounter Procedures Procedure Name Priority Date/Time Associated Diagnosis Comments GLUCOSE, WHOLE BLOOD Routine 07/06/2022 10:44 AM EST documented in this encounter Results * (ABNORMAL) Glucose, Whole Blood (07/06/2022 10:44 AM EST) Glucose, Whole Blood 204(H) 60 - 115 mg/dL [facility] Comment:METER #: [id number] 5Testing performed in the Endocrinology Department [address] , [address], [facility]. 07/06/2022 10:4 4 AM EST 07/06/2022 10:48 AM EST [facility] External Provider LAB BLO OD ORDERABLES Final Result Performing Organization Address City/State/[facility] Co de Phone Number [facility] [address] [place] [address] [phone] documented in this encounter Visit Diagnoses Not on filedocumented in this encounter Care Teams Rehabilitation Counsellor Relationship Specialty Start Date End Date Gavi Aldana DO [address] [place] [address] PCP - General Family Medicine 06/06/18 documented as of this encounter
--- OUTSIDE RECORDS SUMMARY | 2024-08-24 16:09 | XMS_ITS | Continuity of Care Document ---
Author Organization [place] - [facility], [facility] Address [address] [place] [address] Care Team Providers Care Premium Cancellation Clerk Name Role Phone MARTINEZ VIZCARRA Primary Care Provider [phone] Assessment Encounter Date Assessment Date Assessment LastModified [...] copy of the audiogram, a list of [facility] hearing aid providers, and medical clearance [...] Organization Details Recorded Time Dizziness and giddiness 115250727 Active 2018 Dizziness and giddiness ; Note: Date Diagnosed : 01/25/2019 11:02 AM (R42) Not Available [facility] 4 02:39:47 Impacted cerumen of bilateral ears [id number] 05469 Active 2018 Impacted cerumen, bilateral ; Note: Date Diagnosed : 01/25/2019 11:05 AM (H61.23) Not Available [facility] 4 02:39:43 Bilateral tinnitus 04321451368 02 Active 2018 Tinnitus, bilateral ; Note: Date Diagnosed : 01/25/2019 11:24 AM (H93.13) Not Available [facility] 4 02:39:43 Cough 83165021 Active 2020 Cough, unspecifi ed; Note: Changed from R05 to R05.9 ( 4 9:23 AM) , Date Diagnosed : 02/11/2021 10:17 AM (R05) WYATT NAVA MD [address] [place] [address], [place], [address] [facility] 4 10:02:57 Benign paroxysma l positiona l vertigo 927887445 Active 2018 Benign paroxysma l vertigo, unspecifi ed ear; Note: Date Diagnosed : 01/25/2019 11:03 AM (H81.10) Not Available [facility] 4 02:39:53 Sensorine ural hearing loss of bilateral ears 141468737 Active 2018 Sensorine ural hearing loss, bilateral ; Note: Date Diagnosed : 01/25/2019 11:24 AM (H90.3) Not Available [facility] 4 02:39:48 Gastroeso phageal reflux disease without esophagit is 968172171 Active 2023 Gastro-es ophageal reflux disease without esophagit is; Note: Date Diagnosed : 08/25/2023 10:32 AM (K21.9) Not Available [facility] 4 02:39:48 Allergic rhinitis 84149614 Active 2023 Allergic rhinitis, unspecifi ed; Note: Date Diagnosed : 08/01/2023 10:25 AM (J30.9) [facility] 02:[facility] Nasal congestio n 78053279 Active 2023 Nasal congestio n; Note: Date Diagnosed : 08/01/2023 10:25 AM (R09.81) Not Available [facility] 02:39:53 Problem Notes None recorded. Procedures Surgical History Date Name Laterality Status Provider Name and Address Organization Details Recorded Time 07/30/19 Wax_DP completed WYATT NAVA MD [address] [facility],[address], [address], [facility] - [facility] 07/30/2024 08:53:51 07/30/19 Air only Audio (02068) completed Nupur DIOP [address] [place] [address],[address], [address], [facility] - [facility] 07/30/2024 09:17:09 07/30/19 25 Tympanometry (50859) completed Nupur DIOP [address] [place] [address],[address], [address], [facility] - [facility] 07/30/2024 09:17:15 Imaging Results None recorded. Procedure [...] mg tablet 04/27 completed Medicati on ID: [id number] B rand Name: atorvast atin Sen d Method: E-Prescr ibed Sub s Allowed: subs OK Speci al Instruct ion: TOME PRAVEEN TABLETA TODOS LOS D AL ACOSTARS E Medica tionGene ricName: atorvast atin Not Available Not Available Not Available Vitamin C 500 mg tablet active Medicati on ID: [id number] B rand Name: Vitamin C Send Method: [...] layed release 02/11 completed Medicati on ID: [id number] D uration Value: 90 Brand Name: aspirin Send Method: E-Prescr ibed Sub s Allowed: subs OK Speci al Instruct ion: TOME PRAVEEN TABLETA POR V?A ORAL TODOS LOS D? Med icationG enericNa me: aspirin Not Available Not Available Not Available tramadol 50 mg tablet active Medicati on ID: [id number] B rand Name: tramadol Send Method: E-Prescr ibed Sub s Allowed: subs OK Medic ationGen ericName : tramadol Not Available Not Available Not Available spironola ctone 25 mg tablet active Medicati on ID: [id number] B rand Name: spironol actone S end [...] 10 mg tablet active Medicati on ID: [id number] B rand Name: baclofen Send Method: E-Prescr ibed Sub s Allowed: subs OK Speci al Instruct ion: TAKE 1 TABLET BY MOUTH 3 TIMES EVERY DAY NEEDED FOR MUSCLE SPASM/PA [facility] : baclofen Not Available Not Available Not Available benzonata te 100 mg capsule TAKE 1 CAPSULE BY MOUTH THREE TIMES DAILY NEEDED FOR COUGH active Not Available Not Available No t Available pantopraz ole 40 mg tablet,de layed release active Medicati on ID: [id number] B rand Name: pantopra zole Sen d Method: E-Prescr ibed Sub s Allowed: subs OK [facility]opra [facility]ole Not Available Not Available Not Available ferrous sulfate 325 mg (65 mg iron) tablet 04/27 completed Medicati on ID: [id number] B rand Name: ferrous sulfate Send Method: [...] mg tablet 02/11 completed Medicati on ID: [id number] D uration Value: 90 Brand Name: metoprol ol tartrate Send Method: E-Prescr ibed Sub s Allowed: subs OK Speci al Instruct ion: TOME PRAVEEN TABLETA HA VECES AL D?A [facility] nericNam e: metoprol ol tartrate Not Available Not Available Not Available folic acid 1 mg tablet TAKE 1 TABLET BY MOUTH EVERY DAY active Not Available Not Available No t Available digoxin 125 mcg (0.125 mg) tablet active Medicati on ID: [id number] B rand Name: digoxin Send Method: E-Prescr ibed Sub s Allowed: subs OK Speci al Instruct ion: TOME PRAVEEN TABLETA TODOS LOS D Medic [facility] [place] ericName : digoxin Not Available Not Available Not Available furosemid e 20 mg tablet TAKE 1 TABLET BY MOUTH EVERY EVENING active Not Available Not Available No t Available gabapenti n 100 mg capsule 02/11 completed Medicati on ID: [id number] B rand Name: gabapent in Send Method: E-Prescr ibed Sub s Allowed: subs OK Medic ationGen ericName : gabapent in Not Available Not Available Not Available Novolog U-100 Insulin aspart 100 unit/mL subcutane ous solution active Medicati on ID: [id number] B rand Name: Novolog U-100 Insulin aspart S end Method: E-Prescr ibed Sub s Allowed: subs OK Speci al Instruct ion: UP TO 100 UNITS VIA INSULIN PUMP SUBCUT DAILY Me dication GenericN norma: Novolog U-100 Insulin aspart Not Available Not Available Not Available nystatin 100,000 unit/gram topical powder 04/27 completed Medicati on ID: [id number] B rand Name: nystatin Send Method: E-Prescr ibed Sub s Allowed: subs OK Speci al Instruct ion: APLIQUE AL LIAT AFECTADA DOS VECES AL D A Medica tionGene ricName: nystatin Not Available Not Available Not Available albuterol sulfate HFA 90 mcg/actua tion aerosol inhaler 02/11 completed Medicati on ID: [id number] B rand Name: albutero l sulfate Send Method: E-Prescr ibed Sub s Allowed: subs OK Speci al Instruct ion: TOME DOS INHALACI ONES POR V A ORAL CADA CUATRO A SEIS HORAS CUANDO SEA NECESARI O Medica tionGene ricName: albutero l sulfate Not Available Not Available Not Available fluticaso ne propionat e 50 mcg/actua tion nasal spray,lalo pension active Medicati on ID: [id number] B rand Name: fluticas one propiona te [...] 40 mg tablet active Medicati on ID: [id number] B rand Name: valsarta n Send Method: [...] mg-50 mg tablet active Medicati on ID: [id number] B rand Name: Senna Plus Sen d [...] ion nasal spray active Medicati on ID: [id number] B rand Name: Narcan S end Method: [...] pen injector 02/11 completed Medicati on ID: [id number] D uration Value: 30 Brand Name: Ozempic [...] Available Not Available Not Available Dexcom G7 Architectural Administrative Assistant USE DIRECTED active Not Available Not Available [...] Updated DateTime 07/30/2024 149.86 cm 26.7 kg/m2 44550.19 g Nash Hammond [place] - [facility] 07/30/2024 08:41:37 Social History None recorded. Functional Status None recorded. Mental Status None recorded. Family History Nothing Reported. Medical History Condition Response Diabetes Y Gynecological HistoryNo gynecological history recorded. Obstetrics History GPAL:G 0 P 0 0 0 0 Past Encounters Encounter ID Performer Location Encounter Start Date Encounter Closed Date Diagnosis/Indication Diagnosis SNOMED-CT Code Diagnosis ICD10 Code Diagnosis Note [id number] WYATT NAVA MD [facility] [address] [address] 07/30/2024 08:36:37 07/30/2024 09:43:52 Sensorineural hearing loss of bilateral ears [id number] H90.3 Audiologic al evaluation results: Right ear: [...] seal}} Impacted c erumen of bilateral ears 4468500184 838216 H61.23 Ears were meticulous ly cleaned bilaterall [...] Guarantor Name 07/30/2024 1 [facility] - DOS ON OR AFTER 2022 - [employer] (MEDICARE REPLACEMENT/ADV ANTAGE - HMO) Candi Sanchez [id number] Candi Sanchez Notes Date Note Type Note Provider Name and Address Organization Details Recorded Time 07/30/2024 text/html IPad - Spanishhearing lossdid not pursue hearing aids in past year 08/01/23 Dr Kern audiomild sloping to severe B SNHLcleared for B HAE PV 04/27/24 Iris - cough - improved with meds from pulscotty NAVA MD [address] [place] [address], [phone], [facility] - [facility] 07/30/2024 09:42:27 OBGyn Episode No OBEpisode recorded.
--- OUTSIDE RECORDS SUMMARY | 2024-08-24 16:09 | XMS_ITS | Clinical Summary ---
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 Physical exam wnl Rapid strep, Covid and Flu negative Plan: supportive measures, recommended Tylenol prn, pt to test at home if symptoms do not improve or worsen and notify us if positive or worsening of symptoms Pt verbalized understanding Encounters Date Type Department Care Team Description 08/24/[address] [address] Gavi Aldana DO Results 08/24/[address] [address] Gavi Aldana DO Durable Medical Equipment 08/23/2024 Orders Only [facility] External Provider, [facility] 08/15/2024 8:40 AM EDT Office Visit [facility] [address] [place] [phone] Veena White NP Acute pain of right shoulder (Primary Dx); Hand swelling 07/17/2024 Orders Only GENERIC EXTERNAL DATA DEPARTMENT Provider, Generic External Data 07/11/2024 8:00 AM EST Office Visit [facility] [address] [place] [phone] José Miguel Sy DDS Dental caries into pulp (Primary Dx) 07/04/2024 9:00 AM EST Office Visit [facility] [address] [place] [phone] Laura Dow Dental caries into pulp (Primary Dx); Dental calculus; Localized gingival recession; Dental caries; Missing teeth, acquired; Chronic dental pain 06/18/2024 9:30 AM EST Clinical Support [address] [address] Christine Spencer RN Forgetfulness 06/18/2024 Travel 06/01/2024 Refill [facility] [address] [facility] [place] [address] Gavi Aldana DO 05/28/2024 9:45 AM EST Office Visit [facility] [address] [facility] [address] Gavi Aldana DO Type 1 diabetes mellitus [...] 08/28/2024 9:00 AM EDT Office Visit [facility] [address] [place] [address] José Miguel Sy, DDS [address] [place] [address] Health Maintenance Due Date Last Done Comments CT Colonography 1950 FIT DNA/Cologuard 1950 FIT 1950 FOBT 1950 Sigmoidoscopy 1950 Diabetes: Foot Exam 1958 Eye Exam 1958 Dental Prophylaxis 09/09/2022 03/10/2022, 0 09/25/2018, 11/16/2017, Additional history exists RSV Patients and Patients Aged 60 years or older (1 - 1-dose 75+ series) 11/24/2023 COVID-19 Vaccine ( season) 2024 07/14/2021, 06/23/2021 Depression Screening 06/15/2024 06/15/2023, 06/15/19 Diabetes: Urine Protein Screening 09/19/2024 09/20/2023, 10/13/2022, 10/19/2021, Additional history exists Lipid Panel 09/19/2024 09/20/2023, 10/04, 10/19/2021, Additional history exists SDOH Screening 10/23/2024 10/24/2023 Diabetes: Hemoglobin A1C 11/15/20242 025, 05/28/2024, 02/28/2024, Additional history exists Dental [...] Procedure Name Priority Date/Time Associated Diagnosis Comments US THYROID Routine 08/23/2024 9:[address] CHEST WO CONTRAST Routine 08/17/2024 9:18 [...] Recently Relevant to Health Maintenance Results * US Thyroid (08/23/2024 9:44 AM EDT) Anatomical Region Laterality Modality Head, Neck Ultrasound 08/23/2024 9:44 AM EDT Narrative 08/23/2024 3:29 PM EDT ? [facility] ?[address] ?[place], [place] [address] ? Ultrasound Report ? Signed ? Patient: Sanchez Mueller,Brooklyn ?MR#: ?? [id number] ? : 1950 ?Acct:[id number] ? Age/Sex: 73 / F ?ADM Date: 08/23/24 ? Loc: HO.US ? Attending Dr: Shruthi Cui MD ? Ordering Physician: Shruthi Cui MD ?? Date of Service: 08/23/24 ?? Procedure(s): US thyroid ?? Accession Number(s): [id number] ? cc: Gavi Aldana DO; Shruthi Cui MD ? EXAMINATION: ?? US THYROID ? CLINICAL INFORMATION: ?? Nontoxic single thyroid nodule ? COMPARISON: ?? None available. ? TECHNIQUE: ?? Linear transducer grayscale and color Doppler examination with ?? attention to the region of the thyroid. ? FINDINGS: ? SIZE: Measurements of the thyroid lobes and nodules are given in ?? sagittal, anteroposterior and transverse dimensions respectively. ? Right Thyroid Lobe: 5.5 x 2.9 x 2.4 cm, volume 20 mL. Previously 4.7 x ?? 2.7 x 2.4 cm. Volume 14.4 mL ?? Parenchyma: The gland echotexture is normal. Thyroid vascularity is ?? normal. ? Left Thyroid Lobe: 5.5 x 3.2 x 2.3 cm, volume 22 mL. Previously 4.5 x ?? 2.7 x 2.4 cm. Volume 13.9 mL ?? Parenchyma: The gland echotexture is normal. Thyroid vascularity is ?? normal. ? Isthmus: 0.3 cm in maximum AP dimension. ? Estimated total number of nodules greater than or equal to 1 cm: 4. ?? Bench Lay Out Technician nodules are described as follows: ? 1. Location: Right distal mass lower pole. ? Size: 0.9 x 0.4 x 0.7 cm, volume 0.106 mL. ? Nodule characteristics: ? Composition: Mixed cystic and solid (1). ? Echogenicity: Hypoechoic ? Shape: Wider ? Margins: Smooth (0). ? Echogenic Foci: None (0). ? ACR TI-RADS total points: 4 ? ACR TI-RADS category: TR 4 ? 2. Location: Right mid/lower pole. ? Size: 1.7 x 1.3 x 1.5 cm, volume 1.6 mL. ? Nodule characteristics: ? Composition: Solid (2). ? Echogenicity: Isoechoic (1). ? Shape: Widened ? Margins: Smooth (0). ? Echogenic foci : None. ? ACR TI-RADS total points: 3 ? ACR TI-RADS category: 3 ? 3. Location: Right lower pole. ? Size: 1.5 x 1.4 x 1.6 cm, volume 1.7 mL. ? Nodule characteristics: ? Composition: Solid/almost completely solid (2). ? Echogenicity: Isoechoic (1). ? Shape: Wider ? Margins: Smooth (0). ? Echogenic Foci: None (0). ? ACR TI-RADS total points: 3 ? ACR TI-RADS category: 3 ? 4. Location: Left midpole. ? Size: 1.4 x 1.1 x 1.6 cm, volume 1.3 mL. Previously measured 2.2 x ?? 1.1 x 2.0 cm and volume 2.4. ? Nodule characteristics: ? Composition: Solid (2). ? Echogenicity: Isoechoic (1). ? Shape: Wider ? Margins: Smooth (0). ? Echogenic Foci: None (0). ? ACR TI-RADS total points: 3 ? ACR TI-RADS category: 3. ? 5. Left lower pole nodule. It measures 1.3 x 1.2 x 1.6 cm in volume 1.3 ?? mL. Previously measured 2.0 x 1.8 x 1.4 cm in volume mL. ? There is a solid nodule with isoechoic texture, wider, smoother margins ?? and no echogenic foci. Total points 3. Ti-rads 3. ? NODES: No lymphadenopathy is seen in the tissue surrounding the thyroid ?? gland. ? US/US thyroid ?? IMPRESSION: ?? Enlarged bilateral thyroid lobes. ? Multiple nodules largest measuring 1.7 cm right mid to lower pole. Most ?? of these are solid nodules. Recommend continued follow-up ? ACR TI-RADS RECOMMENDATION REFERENCE: ?? Ultrasound-guided fine-needle aspiration, followup ultrasound, no ?? further follow up. ? * TR1 (0 point) and TR2 (2 points): No FNA or follow up. ? * TR3 (3 points): FNA if more than or equal to 2.5 cm in maximum ?? dimension, followup ultrasound in 1, 3 and 5 years if 1.5 to 2.4 cm in ?? maximum dimension. ? * TR4 (4-6 points): FNA if more than or equal to 1.5 cm in maximum ?? dimension, followup ultrasound in 1, 2, 3 and 5 years if 1 to 1.4 cm in ?? maximum dimension. ? * TR5 (more than or equal to 7 points): FNA if more than or equal to 1 ?? cm in maximum dimension, followup ultrasound every year for 5 years if ?? 0.5 to 0.9 cm in maximum dimension. ? * TR3, TR4 or TR5 nodules that are below the size threshold for ?? followup receive no follow up. ? Electronically signed by: ??Vladislav Haskins MD ??08/23/2024 03:25 PM EDT RP ? Dictated By: ?Divine,Vladislav S ? Signed By: ?<Electronically signed by Vladislav Haskins MD in OV> ?08/23/24 1525 ? DD/ 0944 ? TD/TT: 08/23/24 0955 ? Patient Relations Specialist: MSM ? Procedure Note Donotuseinterpreter, Image - 08/23/2024 [place] [address] Ultrasound Report Signed Patient: Candi Solomon EMR#: [id number] : 9Acct:[id number] Age/Sex: 73 / FADM Date: 08/23/24 Loc: HO.US Attending Dr: Shruthi Cui MD Ordering Physician: Shruthi Cui MD Date of Service: 08/23/24 Procedure(s): US thyroid Accession Number(s): [id number] cc: Gavi Aldana DO; Shruthi Cui MD EXAMINATION: US THYROID CLINICAL INFORMATION: Nontoxic single thyroid nodule COMPARISON: None available. TECHNIQUE: Linear transducer grayscale and color Doppler examination with attention to the region of the thyroid. FINDINGS: SIZE: Measurements of the thyroid lobes and nodules are given in sagittal, anteroposterior and transverse dimensions respectively. Right Thyroid Lobe: 5.5 x 2.9 x 2.4 cm, volume 20 mL. Previously 4.7 x 2.7 x 2.4 cm. Volume 14.4 mL Parenchyma: The gland echotexture is normal. Thyroid vascularity is normal. Left Thyroid Lobe: 5.5 x 3.2 x 2.3 cm, volume 22 mL. Previously 4.5 x 2.7 x 2.4 cm. Volume 13.9 mL Parenchyma: The gland echotexture is normal. Thyroid vascularity is normal. Isthmus: 0.3 cm in maximum AP dimension. Estimated total number of nodules greater than or equal to 1 cm: 4. Bench Lay Out Technician nodules are described as follows: 1. Location: Right distal mass lower pole. Size: 0.9 x 0.4 x 0.7 cm, volume 0.106 mL. Nodule characteristics: Composition: Mixed cystic and solid (1). Echogenicity: Hypoechoic Shape: Wider Margins: Smooth (0). Echogenic Foci: None (0). ACR TI-RADS total points: 4 ACR TI-RADS category: TR 4 2. Location: Right mid/lower pole. Size: 1.7 x 1.3 x 1.5 cm, volume 1.6 mL. Nodule characteristics: Composition: Solid (2). Echogenicity: Isoechoic (1). Shape: Widened Margins: Smooth (0). Echogenic foci : None. ACR TI-RADS total points: 3 ACR TI-RADS category: 3 3. Location: Right lower pole. Size: 1.5 x 1.4 x 1.6 cm, volume 1.7 mL. Nodule characteristics: Composition: Solid/almost completely solid (2). Echogenicity: Isoechoic (1). Shape: Wider Margins: Smooth (0). Echogenic Foci: None (0). ACR TI-RADS total points: 3 ACR TI-RADS category: 3 4. Location: Left midpole. Size: 1.4 x 1.1 x 1.6 cm, volume 1.3 mL. Previously measured 2.2 x 1.1 x 2.0 cm and volume 2.4. Nodule characteristics: Composition: Solid (2). Echogenicity: Isoechoic (1). Shape: Wider Margins: Smooth (0). Echogenic Foci: None (0). ACR TI-RADS total points: 3 ACR TI-RADS category: 3. 5. Left lower pole nodule. It measures 1.3 x 1.2 x 1.6 cm in volume 1.3 mL. Previously measured 2.0 x 1.8 x 1.4 cm in volume mL. There is a solid nodule with isoechoic texture, wider, smoother margins and no echogenic foci. Total points 3. Ti-rads 3. NODES: No lymphadenopathy is seen in the tissue surrounding the thyroid gland. US/US thyroid IMPRESSION: Enlarged bilateral thyroid lobes. Multiple nodules largest measuring 1.7 cm right mid to lower pole. Most of these are solid nodules. Recommend continued follow-up ACR TI-RADS RECOMMENDATION REFERENCE: Ultrasound-guided fine-needle aspiration, followup ultrasound, no further follow up. * TR1 (0 point) and TR2 (2 points): No FNA or follow up. * TR3 (3 points): FNA if more than or equal to 2.5 cm in maximum dimension, followup ultrasound in 1, 3 and 5 years if 1.5 to 2.4 cm in maximum dimension. * TR4 (4-6 points): FNA if more than or equal to 1.5 cm in maximum dimension, followup ultrasound in 1, 2, 3 and 5 years if 1 to 1.4 cm in maximum dimension. * TR5 (more than or equal to 7 points): FNA if more than or equal to 1 cm in maximum dimension, followup ultrasound every year for 5 years if 0.5 to 0.9 cm in maximum dimension. * TR3, TR4 or TR5 nodules that are below the size threshold for followup receive no follow up. Electronically signed by: Vladislav Haskins MD 08/23/2024 03:25 PM EDT Dictated By: Vladislav Haskins MD Signed By: <Electronically signed by Vladislav Haskins MD in OV> 08/23/24 1525 DD/ 0944 TD/TT: 08/23/24 0955 Patient Relations Specialist: LULY us [facility] External Provider IMG US PROCEDURES Final Result * CT Chest w/o Contrast (08/17/2024 9:18 AM EDT) Anatomical Region Laterality Modality Body, Chest Computed Tomogra phy 08/17/2024 9:18 AM EDT Narrative 08/17/2024 9:19 AM EDT ? [facility] ?[address] ?[place] [address] ? CT Scan Report ? Signed ? Patient: Sanchez Mueller,[place] ?MR#: ?? [id number] ? : 1950 ?Acct:[id number] ? Age/Sex: 73 / F ?ADM Date: 03/13/25 ? Loc: HO.CT ? Attending Dr: Gavi Aldana DO ? Ordering Physician: Gavi Aldana DO ?? Date of Service: 08/16/24 ?? Procedure(s): CT chest wo IV con ?? Accession Number(s): [id number] ? cc: Gavi Aldana DO ? Report Number: ?? [id number]: Total DLP = ??117.00 mGy-cm ? CLINICAL [...] by Baldev Yousif MD in OV> ? 08/17/2419 ? DD/ 7 ? TD/TT: 08/17/24917 ? Patient Relations Specialist: ? Procedure Note Rekha, Image - 08/17/[address] [place] [address] [address] Scan Report Signed Patient: Candi Solomon EMR#: [id number] : 9Acct:[id number] Age/Sex: 73 / FADM Date: 08/16/24 Loc: HO.CT Attending Dr: Gavi Aldana DO Ordering Physician: Gavi Aldana DO Date of Service: 08/16/24 Procedure(s): CT chest wo IV con Accession Number(s): [id number] cc: Gavi Aldana DO Report Number: [id number]: Total DLP = 117.00 mGy-cm CLINICAL HISTORY: [...] in OV> 08/17/24918 DD/ 7 TD/TT: 08/17/24917 Patient Relations Specialist: us Gavi Aldana DO IMG CT PROCEDURES Final Resu lt * CT Head w/o Contrast (08/17/2024 9:09 AM EDT) Anatomical Region Laterality Modality Head, Neck Computed Tomogra phy 08/17/2024 9:09 AM EDT Narrative 08/17/2024 9:11 AM EDT ? [facility] ?[address] ?[place] [address] ? CT Scan Report ? Signed ? Patient: Daniel Mueller,Candi Campbell ?MR#: ?? [id number] ? : 1950 ?Acct:[id number] ? Age/Sex: 73 / F ?ADM Date: 03/13/25 ? Loc: HO.CT ? Attending Dr: Gavi Aldana DO ? Ordering Physician: Gavi Aldana DO ?? Date of Service: 08/16/24 ?? Procedure(s): CT head/brain wo IV con ?? Accession Number(s): [id number] ? cc: Gavi Aldana DO ? Report Number: ?? [id number]: Total DLP = ??715.00 mGy-cm ? CLINICAL [...] in OV> ? 08/17/24 0910 ? DD/ 0909 ? TD/TT: 08/17/2409 ? Patient Relations Specialist: ? Procedure Note Rekha, Image - 08/17/[address] [place] [address] [address] Scan Report Signed Patient: Candi Solomon EMR#: [id number] : 9Acct:[id number] Age/Sex: 73 / FADM Date: 08/16/24 Loc: HO.CT Attending Dr: Gavi Aldana DO Ordering Physician: Gavi Aldana DO Date of Service: 08/16/24 Procedure(s): CT head/brain wo IV con Accession Number(s): [id number] cc: Gavi Aldana DO Report Number: [id number]: Total DLP = 715.00 mGy-cm CLINICAL HISTORY: [...] in OV> 08/17/24909 DD/ 8 TD/TT: 08/17/24908 Patient Relations Specialist: us Gavi Aldana DO IMG CT PROCEDURES Final Resu lt * Vitamin B12 (Cobalamin) and Folate Panel, Serum (08/15/2024 9:43 AM EDT) Vitamin B12 726 200 - 900 pg/mL [facility] Comment:NORMAL 200-900 PG/ML INDETERMINATE 160-199 PG/ML DEFICIENT < 160 PG/ML Folate 10.0 > or = 4.0 ng/mL [facility] Comment:Reference Values:> o r = [...] DO LAB BLOOD ORDERABLES Final R esult [facility] [address] [place] [address] [phone] * RPR (Monitor) with Reflex to??Titer (08/15/2024 9:43 AM EDT) RPR (Monitor) w/Refl Titer NON-REACTI VE NON-REACT CAPRICE [facility] Comment:THIS TEST WAS PERFOR MED AT:[facility] [place] [id number] ULLOA MD Rapid Plasma Reagin Ab Titer TNP [facility] Blood Venous blood specimen / Unknown 08/15/2024 9:43 AM EDT 08/15/2024 11:45 AM EDT us Gavi Jovan DO LAB BLOOD ORDERABLES Final R esult [facility] [address] [place] [address] [phone] * (ABNORMAL) Hemoglobin A1c (08/15/2024 9:43 AM EDT) Hemoglobin A1c 8.0(H) <6.0 % [facility] Comment:Hemoglobin A1C Refer ence Range Adults: 4.8 - 6.0 % Non diabetic: < 6.0 % Goal: < 7.0 %Additional Action Suggested: > 8.0 %Note: Hemoglobin A1c results are invalid for patients with abnormal amounts of HbF. Blood transfusions may impact the HbA1c concentration in the patient sample. Estimated Average Glucose 183 mg/dL [facility] Comment:eAG = Estimated ave rage glucose which is %A1C expressed asaverage glucose, using the formula of the G6T-BbmqfisQvujvax Glucose study (ADAG), Diabetes Care, Vol.31,#8,2007 Blood Venous blood specimen / Unknown 08/15/2024 9:43 AM EDT 08/15/2024 11:45 AM EDT us Gavi Aldana DO LAB BLOOD ORDERABLES Final R esult Performing Organization Address City/[facility]/ZIP Co de Phone Number [facility] [address] [place] [address] [phone] * (ABNORMAL) Urinalysis Complete (08/15/2024 9:42 AM EDT) Color Urine Dark Yellow [facility] Appearance Urine Clear [facility] PH 5.5 5.0 - 9.0 [facility] Glucose Urine UA Negative Negative mg/dL [facility] Urine Blood Small (1+)(A) Negative [facility] Specific [place] - Urine >=1.030(H) 1.005 - 1.025 [facility] Urine Protein 300 (3+)(A) Neg-Trace mg/dL [facility] Urine Ketones Trace Negative mg/dL [facility] Nitrite Urine Negative Negative [facility] Leukocyte Esterase Urine Negative Negative [facility] RBC Urine >20(A) 0 - 2 /HPF [facility] Urine WBC 0-5 0 - 5 /HPF [facility] Urine Squamous Epithelial Cell 0-2 0 - 2 /HPF [facility] Urine Bacteria None Seen None Seen [facility] Hyaline Casts, Urine 3-5 0 - 2 /LPF [facility] Urine (Urine, Random) 08/15/2024 9:42 AM EDT 08/15/2024 11:25 AM EDT us Gavi Aldana DO LAB URINE ORDERABLES Final R esult Performing Organization Address [facility] de Phone Number [facility] [address] [place] [phone] * (ABNORMAL) Glucose, Whole Blood (07/17/2024 9:33 AM EST) Glucose, Whole Blood 287(H) 60 - 115 mg/dL [facility] Comment:METER #: [id number] 5Testing performed in the Endocrinology Department [address] , [address], [facility]. 07/17/2024 9:33 AM EST 07/17/2024 9:38 AM EST us Generic External Data Provider LAB BLOOD ORDERAB LES Final Result Performing Organization Address [facility] Co de Phone Number [facility] [address] [place] [phone] * (ABNORMAL) POCT HGB A1C (05/28/2024 9:23 AM EST) Hemoglobin A1C 10.2(A) 4.0 - 6.0 % QC Media Lot # [id number] Lot# Expiration Date ,026 Blood 05/28/2024 9:23 AM EST Gavi Aldana DO POINT OF CARE TEST ENTER/DIAMANTE T ORDERABLES Final Result * POCT Glucose (05/28/2024 9:22 AM EST) Pathologist [facility] Glucose Blood, POC 149 60 - 200 mg/dL QC Media Lot # [id number] Lot# Expiration Date 025 Blood Capillary blood specimen / Unknown 05/28/2024 9:22 AM EST Gavi Aldana DO POINT OF CARE TEST ENTER/DIAMANTE T ORDERABLES Final Result * Hepatitis Panel, General (05/09/2024 9:54 AM EST) Pathologist [facility] Hepatitis A IgM Nonreactive Nonreactive [facility] Comment:IgM antibodies to MCCANN V not detected; does not exclude earlyacute or recovered HAV infection. ~Hepatitis B Surface Antibody REACTIVE Nonreactive [facility] Comment:REACTIVE: > 11.99 mI U/mL Hepatitis B Core Antibody Nonreactive Nonreactive [facility] Hepatitis C Antibody Nonreactive Nonreactive [facility] Comment:Antibodies to HCV no t detected; does not exclude early acuteHCV infection. Hepatitis B Surface Ag Negative Negative [facility] 05/09/2024 9:54 AM EST 05/09/2024 9:54 AM EST Generic External Data Provider LAB BLOOD ORDERAB LES Final Result [facility] [address] [place] [phone] * Lipid Panel, Standard (09/20/2023 7:27 AM EDT) Triglycerides 96 <150 mg/dL [facility] Comment:Desirable Triglyceri de: less than 150 mg/dLBorderline High Triglyceride 150-199 mg/dLHigh Triglyceride: 200-499 mg/dLVery High Triglyceride: greater than or equal to 5OO mg/dL Cholesterol 139 <200 mg/dL [facility] Comment:Desirable Cholestero l: less than 200 mg/dLBorderline High Cholesterol: 200-239 mg/dLHigh Cholesterol: greater than 239 mg/dL LDL Cholesterol Calculated 69 <100 mg/dL [facility] Comment:Desirable LDL: less than 100 mg/dLNear Optimal/Above Optimal LDL: 110- 129 mg/dLBorderline High LDL: 130-159 mg/dLHigh LDL: 160-189 mg/dLVery High LDL: greater than or equal to 190 mg/dL HDL Cholesterol 51 >40 mg/dL [facility] Comment:Desirable HDL: great er than 40 mg/dL Note: This HDL assay may give artificially low results in patients with liver disease. Blood Venous blood specimen / Unknown 09/20/2023 7:27 AM EDT 09/20/2023 7:27 AM EDT us Gavi Aldana DO LAB BLOOD ORDERABLES Final R esult [facility] [address] [place] [phone] * (ABNORMAL) Albumin, Random Urine W/Creatinine (09/20/2023 7:23 AM EDT) Creatinine, Urine 211.65 mg/dL [facility] Microalbumin Urine 817.0 mg/L [facility] Microalbum Creatinine Ratio Ur 386.0(H) <30 ug/mg cr [facility] Comment:Albumin/Creatinine R atio Reference Ranges: Normal: < 30 ug/mg creatinine Microalbuminuria: 30 - 300 ug/mg creatinineClinical Albuminuria: > 300 ug/mg creatinine Urine (Urine, Random) 09/20/2023 7:23 AM EDT 09/20/2023 7:41 AM EDT Gavi Aldana DO LAB URINE ORDERABLES Final R esult [facility] [address] [place] [phone] [phone] * Hm Colonoscopy (07/28/2021 2:52 PM EST) us Historical Provider MD HEALTH MAINTENANCE Final Result from Last 3 Months or Most Recently Relevant to Health Maintenance Insurance - [facility] Care Teams Accounts Officer Relationship Specialty Start Date End Date Gavi Aldana DO [address] [place] [phone] PCP - General Family Medicine 06/06/18
--- OUTSIDE RECORDS SUMMARY | 2024-08-24 16:09 | XMS_ITS | Encounter Summary ---
Author Organization [employer] Address [address] [place] [address] Care Team Providers Care Farm Operator Name Role Phone FlacoGavi humphreys Primary Care Provider + [phone] Encounter Details Date Type Department Care Team (Late st Contact Info) Description 09/14/2023 Orders Only [facility] [address] [place] [address] ProviderMeliton MD Social History Tobacco Use Types [...] Description 08/28/2024 9:00 AM EDT Office Visit [facility] [address], [place] [phone] José Miguel Sy DDS [address], [place] [phone] documented as of this encounter Procedures Procedure [...] documented as of this encounter Care Teams Farm Operator Relationship Specialty Start Date End Date Gavi Aldana DO [address] [place] [address] PCP - General Family Medicine 06/06/18 documented as of this encounter
--- OUTSIDE RECORDS SUMMARY | 2024-08-24 16:09 | XMS_ITS | Clinical Summary ---
Author Organization 175 [facility] Address [address] [place] [address] Phone Care Team Providers Care Displayer Name Role Phone Kelle Aldanafer Agata [place] Primary Care Provider [phone] Allergies No known active allergies Medications metFORMIN [...] 9:00 AM EST Office Visit Orthopedic [facility] [address] [phone] Kota De La Torre DPM Primary osteoarthritis [...] 11:00 AM EDT Consult Vascular Surgery - [place] [address] [place] [phone] Tiffanie Holbrook MD 300 [facility] [address] [place] [address] 10/01/2024 9:00 AM EDT Office Visit Orthopedic Surgery [facility] 250 175 [facility] [address] [place] [phone] Kota De La Torre DPM 175 [facility] [address] [place] [address] Health Maintenance Due Date Last Done Comments [...] complete this topic Insurance MEDICAID - [place] [facility] Member Subscriber Plan / Payer (Ef fective 2014-Present) Name:Candi Sanchez E Relation to Subscriber:Self Name:Candi Sanchez Payer ID:[id number] Group ID:[id number] Type:Not on file Address: [address] [place] [address] Care Teams Displayer Relationship Specialty Start Date End Date Gavi Aldana DO [address] [place] [address] PCP - General Internal Medicine 10/27/11
--- OUTSIDE RECORDS SUMMARY | 2024-08-24 16:09 | XMS_ITS | Encounter Summary ---
Author Organization [facility] Address [address] [place] [address] 7t [place] [address] Care Team Providers Care Interior Design Director Name Role Phone Gavi Aldana DO Primary Care Provider + [phone] Encounter Details Date Type Department Care Team (Late st Contact Info) Description 12/14/2022 Orders Only [facility] CHC MED & PEDS [address] [place] [address] Gavi Duarte LPN Social History Tobacco Use [...] Description 08/28/2024 9:00 AM EDT Office Visit [facility] ADULT DENTAL [address] [place] [address] José Miguel Sy DDS 230 [place] [address] documented as of this encounter Visit Diagnoses Not on filedocumented in this encounter Care Teams Interior Design Director Relationship Specialty Start Date End Date Gavi Aldana DO 230 [place] [address] PCP - General Family Medicine 06/06/18 documented as of this encounter
--- OUTSIDE RECORDS SUMMARY | 2024-08-24 16:09 | XMS_ITS | Encounter Summary ---
Author Organization [employer] [facility] Address [address] [place] [address] 7t [place] [address] Care Team Providers Care Netezza Developer Name Role Phone Gavi Aldana DO Primary Care Provider + [phone] Reason for Visit * Reason Comments Med Refill Encounter Details Date Type Department Care Team (Late Contact Info) Description 10/11/2022 Refill [facility] MEDICINE [address] [place] [address] Gavi Aldana DO [address] [place] [address] Other chronic pain Social History Tobacco Use [...] 9:00 AM EDT Office Visit [facility] ADULT DENTAL [address] [place] [address] José Miguel Sy DDS 230 [place] [address] documented as of this encounter Visit Diagnoses Diagnosis Other chronic pain documented in this encounter Care Teams Netezza Developer Relationship Specialty Start Date End Date Gavi Aldana DO [address] [place] [address] PCP - General Family Medicine 06/06/18 documented as of this encounter
--- OUTSIDE RECORDS SUMMARY | 2024-08-24 16:09 | XMS_ITS | Encounter Summary ---
Author Organization [employer] [facility] Address [address] [place] [address] 7t [place] [address] Care Team Providers Care Dental Laboratory Supervisor Name Role Phone Gavi Aldana DO Primary Care Provider + [phone] Encounter Details Date Type Department Care Team (Latest Contact Info) Description 09/25/2018 Abstract [facility] CONVERSIONS Dental, Provider, DDS Social History [...] Description 08/28/2024 9:00 AM EDT Office Visit [facility] ADULT DENTAL [address] [place] [address] José Miguel Sy DDS 230 [place] [address] documented as of this encounter Visit Diagnoses Not on filedocumented in this encounter Care Teams Dental Laboratory Supervisor Relationship Specialty Start Date End Date Gavi Aldana DO 230 [place] [address] PCP - General Family Medicine 06/06/18 documented as of this encounter
--- OUTSIDE RECORDS SUMMARY | 2024-08-24 16:10 | XMS_ITS | Encounter Summary ---
Author Organization [employer] Address [address] [facility] 7t [place] [address] Care Team Providers Care Shank Cutter Name Role Phone Gavi Aldana DO Primary Care Provider + [phone] Encounter Details Date Type Department Care Team (Late st Contact Info) Description 08/23/2024 Orders Only [facility] External Provider, [facility] Social History Tobacco Use Types Packs/Day Years [...] Description 08/28/2024 9:00 AM EDT Office Visit [facility] ADULT DENTAL [address] [place] [address] José Miguel Sy, BRIDGETT [address] [place] [address] documented as of this encounter Procedures Procedure Name Priority Date/Time Associated Diagnosis Comments US THYROID Routine 08/23/2024 9:44 AM EDT documented in this encounter Results * US Thyroid (08/23/2024 9:44 AM EDT) Anatomical Region Laterality Modality Head, Neck Ultrasound 08/23/2024 9:44 AM EDT Narrative 08/23/2024 3:29 PM EDT ? [facility] ?[address] ?[place] [address] ? Ultrasound Report ? Signed ? Patient: Candi Solomon ?MR#: ?? [id number] ? : 1950 ?Acct:[id number] ? Age/Sex: 73 / F ?ADM Date: /20/25 ? Loc: HO.US ? Attending Dr: Shruthi Cui MD ? Ordering Physician: Shruthi Cui MD ?? Date of Service: 08/23/24 ?? Procedure(s): US thyroid ?? Accession Number(s): [id number] ? cc: Gavi Aldana DO; Shruthi Cui [...] or equal to 1 cm: 4. ?? Device Repair Technician nodules are described as follows: ? [...] 03:25 PM EDT RP ? Dictated By: ?Vladislav Haskins MD ? Signed By: ?<Electronically signed by Vladislav Haskins MD in OV> ?08/23/24 1525 ? DD/ 0944 ? TD/TT: 08/23/24 0955 ? Linker Up: MSM ? Procedure Note Rekha, Image - 08/23/[address] [address] Ultrasound Report Signed Patient: Candi Solomon EMR#: [id number] : 9Acct:[id number] Age/Sex: 73 / FADM Date: 08/23/24 Loc: HO.US Attending Dr: Shruthi Cui MD Ordering Physician: Shruthi Cui MD Date of Service: 08/23/24 Procedure(s): thyroid Accession Number(s): [id number] cc: Gavi Aldana DO; Shruthi Cui MD [...] than or equal to 1 cm: 4. Device Repair Technician nodules are described as follows: 1. [...] 08/23/24 1525 DD/ 0944 TD/TT: 08/23/24 0955 Linker Up: [facility] External Provider IMG US PROCEDURES Final Result documented in this encounter Visit Diagnoses Not on filedocumented in this encounter Additional Health Concerns Assessment Noted Time PHQ-9 Depression Total Score: 1 06/15/19 24 10:29 AM EST documented as of this encounter Care Teams Shank Cutter Relationship Specialty Start Date End Date Gavi Aldana DO [address] [place] [address] PCP - General Family Medicine 06/06/18 documented as of this encounter
--- OUTSIDE RECORDS SUMMARY | 2024-08-24 16:10 | XMS_ITS | Encounter Summary ---
Author Organization [employer] Address [address] [facility] 7t [place] [address] Care Team Providers Care Material Handler Loader Name Role Phone Gavi Aldana DO Primary Care Provider + [phone] Reason for Visit * Reason Onset Date Comments Durable Medical Equipment 08/24/2024 Encounter Details Date Type Department Care Team ([facility] st Contact Info) Description 08/24/2024 Telephone [facility] MEDICINE [address] [place] [address] Gavi Aldana DO [address] [place], [place] [phone] Durable Medical Equipment Social History Tobacco Use Types Packs/Day Years [...] AM EDT documented as of this encounter Miscellaneous Notes * Telephone Encounter - Huyen Rowland - 08/24/2024 10:51 AM EDT Tc from pt stating received a visit from Shana with [facility], pt wasapproved for a recliner chair but needs a prescription from her PCP. Call Shaan [phone] Ext [phone] documented in this encounter Plan of Treatment Upcoming Encounters Date Type Department Care Team (Late st Contact Info) Description 08/28/2024 9:00 AM EDT Office Visit [facility] ADULT DENTAL [address] [place] [address] José Miguel Sy DDS [address] [place] [address] documented as of this encounter Visit Diagnoses Not on filedocumented in this encounter Additional Health Concerns Assessment Noted Time PHQ-9 Depression Total Score: 1 06/15/19 24 10:29 AM EST documented as of this encounter Care Teams Material Handler Loader Relationship Specialty Start Date End Date Gavi Aldana DO [address] [place] [address] PCP - General Family Medicine 06/06/18 documented as of this encounter
--- OUTSIDE RECORDS SUMMARY | 2024-08-24 16:10 | XMS_ITS | Encounter Summary ---
Author Organization [employer] Address 75 [facility] 7t [place] [address] Care Team Providers Care Stem Roller Name Role Phone Gavi Aldana DO Primary Care Provider + [phone] Reason for Visit * Reason Onset Date Comments Results 08/24/2024 Encounter Details Date Type Department Care Team ([facility] st Contact Info) Description 08/24/2024 Telephone [facility] MEDICINE [address] [place], [place] [phone] Gavi Aldana DO 230 [place], [place] [phone] Results Social History Tobacco Use Types Packs/Day Years [...] encounter Miscellaneous Notes * Telephone Encounter - Karin Foley RN - 08/24/2024 2:20 PM EDT RN reviewed results with PCP (urinalysis) which returned showing RBC's. PCP will order a urine cytology and a renal/bladder US for further evaluation. TC placed to patient [phone] to inform of above results. Patient verbalized understanding and is aware she can come to the lab at her convenience for urine cytology and the hospital will call for scheduling of US. Patient to be contacted with results once available. Patient to f/u PRN. documented in this encounter Plan of Treatment Upcoming Encounters Date Type Department Care Team (Late st Contact Info) Description 08/28/2024 9:00 AM EDT Office Visit [facility] ADULT DENTAL [address] [place] [address] José Miguel Sy DDS [address] [place] [address] Scheduled Orders Name Type Priority Associated Diagnoses Orde r Schedule Cytology, urine Pathology and Cytology Routine Microscopic hematuria Expected: 08/24/2024 (Approximate), Expires: 08/24/2025 documented as of this encounter Visit Diagnoses Diagnosis Microscopic hematuria documented in this encounter Additional Health Concerns Assessment Noted Time PHQ-9 Depression Total Score: 1 06/15/19 24 10:29 AM EST documented as of this encounter Care Teams Stem Roller Relationship Specialty Start Date End Date Gavi Aldana DO [address] [place] [address] PCP - General Family Medicine 06/06/18 documented as of this encounter
--- OUTSIDE RECORDS SUMMARY | 2024-08-24 16:10 | XMS_ITS | Data Portability ---
Author Organization [place] [facility] Address 100 [facility] 100 [place] [address] Care Team Providers Care Assistant Product Manager Name Role Phone MARTINEZ VIZCARRA Primary Care Provider [phone] Assessment Encounter Date Assessment Date Assessment LastModified [...] Organization Details Recorded Time Dizziness and giddiness 717344304 Active 2018 Dizziness and giddiness ; Note: Date Diagnosed : 01/25/2019 11:02 AM (R42) Not Available [facility] 4 02:39:47 Impacted cerumen of bilateral ears [id number] 42192 Active 2018 Impacted cerumen, bilateral ; Note: Date Diagnosed : 01/25/2019 11:05 AM (H61.23) Not Available [facility] 4 02:39:43 Bilateral tinnitus 76677642605 02 Active 2018 Tinnitus, bilateral ; Note: Date Diagnosed : 01/25/2019 11:24 AM (H93.13) Not Available [facility] 4 02:39:43 Cough 47979776 Active 2020 Cough, unspecifi ed; Note: Changed from R05 to R05.9 ( 4 9:23 AM) , Date Diagnosed : 02/11/2021 10:17 AM (R05) WYATT NAVA MD [address] [place] [address], [phone] , [facility] - [facility] 4 10:02:57 Benign paroxysma l positiona l vertigo 737035777 Active 2018 Benign paroxysma l vertigo, unspecifi ed ear; Note: Date Diagnosed : 01/25/2019 11:03 AM (H81.10) Not Available [facility] 4 02:39:53 Sensorine ural hearing loss of bilateral ears 792842375 Active 2018 Sensorine ural hearing loss, bilateral ; Note: Date Diagnosed : 01/25/2019 11:24 AM (H90.3) Not Available [facility] 4 02:39:48 Gastroeso phageal reflux disease without esophagit is 696500574 Active 2023 Gastro-es ophageal reflux disease without esophagit is; Note: Date Diagnosed : 08/25/2023 10:32 AM (K21.9) Not Available [facility] 02:39:48 Allergic rhinitis 03117810 Active 2023 Allergic rhinitis, unspecifi ed; Note: Date Diagnosed : 08/01/2023 10:25 AM (J30.9) Not Available [facility] 02:39:50 Nasal congestio n 20399851 Active 2023 Nasal congestio n; Note: Date Diagnosed : 08/01/2023 10:25 AM (R09.81) Not Available [facility] 02:39:53 Problem Notes None recorded. Procedures Surgical History Date Name Laterality Status Provider Name and Address Organization Details Recorded Time 07/30/19 25 Wax_DP completed WYATT NAVA MD [address] [place] [address], [phone], [facility] 07/30/2024 08:53:51 07/30/19 25 Air only Audio (83452) completed Nupur DIOP [address] [place] [address], [phone], [facility] 07/30/2024 09:17:09 07/30/19 25 Tympanometry (64382) completed Nupur DIOP [address] [place] [address], [phone], [facility] 07/30/2024 09:17:15 Imaging Results Imaging Date [...] mg tablet 04/27 completed Medicati on ID: [id number] B rand Name: atorvast atin Sen d Method: E-Prescr ibed Sub s Allowed: subs OK Speci al Instruct ion: TOME PRAVEEN TABLETA TODOS LOS D AL ACOSTARS E Medica tionGene ricName: atorvast atin Not Available Not Available Not Available Vitamin C 500 mg tablet active Medicati on ID: 643952 B rand Name: Vitamin C Send Method: [...] layed release 02/11 completed Medicati on ID: [id number] D uration Value: 90 Brand Name: aspirin Send Method: E-Prescr ibed Sub s Allowed: subs OK Speci al Instruct ion: TOME PRAVEEN TABLETA POR V?A ORAL TODOS LOS D? Med icationG enericNa me: aspirin Not Available Not Available Not Available tramadol 50 mg tablet active Medicati on ID: 688585 B rand Name: tramadol Send Method: E-Prescr ibed Sub s Allowed: subs OK Medic ationGen ericName : tramadol Not Available Not Available Not Available spironola ctone 25 mg tablet active Medicati on ID: [id number] B rand Name: spironol actone S end [...] 10 mg tablet active Medicati on ID: 610719 B rand Name: baclofen Send Method: E-Prescr ibed Sub s Allowed: subs OK Speci al Instruct ion: TAKE 1 TABLET BY MOUTH 3 TIMES EVERY DAY NEEDED FOR MUSCLE SPASM/PA IN [facility] ericName : baclofen Not Available Not Available Not Available benzonata te 100 mg capsule TAKE 1 CAPSULE BY MOUTH THREE TIMES DAILY NEEDED FOR COUGH active Not Available Not Available No t Available pantopraz ole 40 mg tablet,de layed release active Medicati on ID: 341264 B rand Name: pantopra zole Sen d Method: E-Prescr ibed Sub s Allowed: subs OK [facility] ericName : pantopra zole Not Available Not Available Not Available ferrous sulfate 325 mg (65 mg iron) tablet 04/27 completed Medicati on ID: [id number] B rand Name: ferrous sulfate Send Method: [...] mg tablet 02/11 completed Medicati on ID: 149923 D uration Value: 90 Brand Name: metoprol [...] (0.125 mg) tablet active Medicati on ID: 109539 B rand Name: digoxin Send Method: E-Prescr [...] mg capsule 02/11 completed Medicati on ID: [id number] B rand Name: gabapent in Send Method: E-Prescr ibed Sub s Allowed: subs OK Medic ationGen ericName : gabapent in Not Available Not Available Not Available Novolog U-100 Insulin aspart 100 unit/mL subcutane ous solution active Medicati on ID: 568545 B rand Name: Novolog U-100 Insulin aspart S end Method: E-Prescr ibed Sub s Allowed: subs OK Speci al Instruct ion: UP TO 100 UNITS VIA INSULIN PUMP SUBCUT DAILY Me dication GenericN norma: Novolog U-100 Insulin aspart Not Available Not Available Not Available nystatin 100,000 unit/gram topical powder 04/27 completed Medicati on ID: [id number] B rand Name: nystatin Send Method: E-Prescr ibed Sub s Allowed: subs OK Speci al Instruct ion: APLIQUE AL LIAT AFECTADA DOS VECES AL D A Medica tionGene ricName: nystatin Not Available Not Available Not Available albuterol sulfate HFA 90 mcg/actua tion aerosol inhaler 02/11 completed Medicati on ID: 818614 B rand Name: albutero l sulfate Send Method: E-Prescr ibed Sub s Allowed: subs OK Speci al Instruct ion: TOME DOS INHALACI ONES POR V A ORAL CADA CUATRO A SEIS HORAS CUANDO SEA NECESARI O Medica tionGene ricName: albutero l sulfate Not Available Not Available Not Available fluticaso ne propionat e 50 mcg/actua tion nasal spray,lalo pension active Medicati on ID: 277139 B rand Name: fluticas one propiona te [...] 40 mg tablet active Medicati on ID: 444183 B rand Name: valsarta n Send Method: [...] mg-50 mg tablet active Medicati on ID: 054731 B rand Name: Senna Plus Sen d [...] ion nasal spray active Medicati on ID: 615979 B rand Name: Narcan S end Method: [...] pen injector 02/11 completed Medicati on ID: 093981 D uration Value: 30 Brand Name: Ozempic [...] Available Not Available Not Available Dexcom G7 Receiving Dock Checker USE DIRECTED active Not Available Not Available [...] Updated DateTime 04/27/2024 149.86 cm 26.7 kg/m2 54776.19 g Susy Vera [place] [facility] 04/27/2024 09:48:20 Date Recorded Body height Body mass index (BMI) Body weight Provider Name and Address Organization Details Last Updated DateTime 07/30/2024 149.86 cm 26.7 kg/m2 70711.19 g Nash [place] [facility] 07/30/2024 08:41:37 Social History None recorded. Functional Status None recorded. Mental Status None recorded. Family History Nothing Reported. Medical History Condition Response Diabetes Y Gynecological HistoryNo gynecological history recorded. Obstetrics History GPAL:G 0 P 0 0 0 0 Past Encounters Encounter ID Performer Location Encounter Start Date Encounter Closed Date Diagnosis/Indication Diagnosis SNOMED-CT Code Diagnosis ICD10 Code Diagnosis Note [id number] WYATT NAVA MD [facility] [address] [address] 04/27/2024 09:29:27 04/27/2024 10:08:17 Cough 98568971 R05.9 Sensorineu ral hearing loss of bilateral ears 618375964 H90.3 [id number] WYATT NAVA MD [facility] [address] [address] 07/30/2024 08:36:37 07/30/2024 09:43:52 Sensorineural hearing loss of bilateral ears 316877586 H90.3 Audiologic al evaluation results: Right ear: [...] seal}} Impacted c erumen of bilateral ears 7373694623 901782 H61.23 Ears were meticulous ly cleaned bilaterall [...] Guarantor Name 04/27/2024 2 [facility] [place] ([place]ICARE REPLACEMENT/ADV ANTAGE - HMO) Candi Sanchez [id number] Candi Sanchez 07/30/2024 1 [facility] - DOS ON OR AFTER 2022 - LONG-TERM OPTIONS (MEDICARE REPLACEMENT/ADV ANTAGE - HMO) Candi Sanchez [id number] Candi Sanchez Notes Date Note Type Note [...] 2 pills. Rx famotidine WYATT NAVA MD [address] [place] [address],[place] [address], [place], [address], [place] [facility] [place] 04/27/2024 10:06:17 07/30/2024 text/html IPad - Spanishhe aring lossdid not pursue hearing aids in past year 08/01/23 Dr Kern audiomild sloping to severe B SNHLcleared for B HAE PV 04/27/24 Iris - cough - improved with meds from pulscotty NAVA MD [address] [place] [address], [place], [address], [facility] - [facility] 07/30/2024 09:42:27 OBGyn Episode No OBEpisode recorded.
== END 2024-08-24 15:12 | disposition home or self-care (01) ==
LOC: HO.RHE 13:50
PROVIDERS: PCP Family Medicine; Visit Provider Student in an Organized Health Care Education/Training Program
DX: M05.9 Rheumatoid arthritis with rheumatoid factor, unspecified (principal); M15.9 Polyosteoarthritis, unspecified; Z79.899 Other long term (current) drug therapy
CPT/HCPCS: 99215; G2211

== ENCOUNTER → 2024-08-24 13:50 | Outpatient (BNVA) | payer OTHER, SELFPAY | PROVIDERS: PCP Family Medicine; Visit Provider Student in an Organized Health Care Education/Training Program | DX: M05.9 Rheumatoid arthritis with rheumatoid factor, unspecified (principal); M15.9 Polyosteoarthritis, unspecified; Z79.899 Other long term (current) drug therapy | CPT/HCPCS: 99212 ==

== ENCOUNTER 2024-08-28 10:07 | Outpatient (REF) | payer OTHER, SELFPAY ==
[2024-08-28 11:17] LABS: Urine Cytology See Pathology rpt
[2024-08-28 11:31] LABS: Anion Gap 9 (12-20); Blood Urea Nitrogen 17 mg/dL (9-16); Calcium 8.9 mg/dL (8.4-10.2); Carbon Dioxide 28 mmol/L (22-29); Chloride 106 mmol/L (96-108); Estimated Glomerular Filt Rate > 60; Glucose Random 298 mg/dL (60-115); Potassium 3.9 mmol/L (3.3-5.1); Sodium 139 mmol/L (135-145)
== END 2024-08-28 10:08 | disposition home or self-care (01) ==
LOC: HO.HHCL 10:07
PROVIDERS: Visit Provider Family Medicine
DX: Z00.00 Encounter for general adult medical examination without abnormal findings (principal); E78.49 Other hyperlipidemia; R31.29 Other microscopic hematuria; E10.9 Type 1 diabetes mellitus without complications; I10 Essential (primary) hypertension; I42.8 Other cardiomyopathies; D69.3 Immune thrombocytopenic purpura; M05.9 Rheumatoid arthritis with rheumatoid factor, unspecified; M25.511 Pain in right shoulder; G89.29 Other chronic pain; M25.512 Pain in left shoulder; R91.8 Other nonspecific abnormal finding of lung field; E04.2 Nontoxic multinodular goiter; R93.89 Abnormal findings on diagnostic imaging of other specified body structures; R05.3 Chronic cough; R51.9 Headache, unspecified; G47.30 Sleep apnea, unspecified; R68.89 Other general symptoms and signs
CPT/HCPCS: 36415; 80048; 88112

== ENCOUNTER 2024-09-04 08:46 | Outpatient (REF) | payer OTHER, SELFPAY ==
[2024-09-04 09:04] LABS: MANUAL DIFF FLAG NO
--- OUTSIDE RECORDS SUMMARY | 2024-09-04 09:11 | XMS_ITS | Encounter Summary ---
Author Organization [employer] [facility] Address [address] [place] [address] 7t [place] [address] Care Team Providers Care Edge Beader Name Role Phone Gavi Aldana DO Primary Care Provider + [phone] Encounter Details Date Type Department Care Team (Latest Contact Info) Description 03/10/2022 Abstract [facility] CONVERSIONS Dental, Provider, DDS Social History Tobacco [...] Care Team (Late st Contact Info) Description 10/12/2024 9:00 AM EDT Office Visit [facility] ADULT DENTAL [address] [place] [address] José Miguel Sy DDS [address] [place] [address] documented as of this encounter Visit Diagnoses Not on filedocumented in this encounter Care Teams Edge Beader Relationship Specialty Start Date End Date Gavi Aldana DO [address] [place] [address] PCP - General Family Medicine 06/06/18 documented as of this encounter
--- OUTSIDE RECORDS SUMMARY | 2024-09-04 09:11 | XMS_ITS | Encounter Summary ---
Author Organization [facility] Address [address] [place] [address] 7t [place] [address] Care Team Providers Care Roll Edge Stitcher Hand Name Role Phone Gavi Aldana DO Primary Care Provider + [phone] Encounter Details Date Type Department Care Team (Latest Contact Info) Description 09/25/2018 Abstract [facility] CONVERSIONS Dental, Provider, DDS Social History [...] Description 10/12/2024 9:00 AM EDT Office Visit [facility] ADULT DENTAL [address] [place] [address] José Miguel Sy DDS [address] [place] [address] documented as of this encounter Visit Diagnoses Not on filedocumented in this encounter Care Teams Roll Edge Stitcher Hand Relationship Specialty Start Date End Date Gavi Aldana DO [address] [place] [address] PCP - General Family Medicine 06/06/18 documented as of this encounter
--- OUTSIDE RECORDS SUMMARY | 2024-09-04 09:12 | XMS_ITS | Encounter Summary ---
Author Organization [employer] Address [address] [facility] [address] [place] [address] Care Team Providers Care Painting Technician Name Role Phone Gavi Aldana DO Primary Care Provider + [phone] Reason for Visit * Reason Onset Date Comments Durable Medical Equipment 08/24/2024 Encounter Details Date Type Department Care Team ([facility] st Contact Info) Description 08/24/2024 Telephone [facility] [address] [place] [address] Gavi Aldana DO [address] [place], [place] [phone] Durable Medical Equipment Social History Tobacco Use [...] encounter Miscellaneous Notes * Telephone Encounter - Madiha Blanc [place] - 08/31/2024 1:54 PM EDT DME RX generated and placed on provider desk for signature. Once signed will fax back to insurance,. * Telephone Encounter - Huyen Rowland - 08/29/2024 8:40 AM EDT Tc from pt requesting status of prior message. * Telephone Encounter - Huyen Rowland - 08/24/2024 10:51 AM EDT Tc from pt stating received a visit from Shana with [facility], pt wasapproved for a recliner chair but needs a prescription from her PCP. Call Shana [phone] Ext [phone] documented in this encounter Plan of Treatment Upcoming Encounters Date Type Department Care Team (Late st Contact Info) Description 10/12/2024 9:00 AM EDT Office Visit [facility] [address] [place] [address] José Miguel Sy DDS [address] [place] [address] documented as of this encounter Visit Diagnoses Not on filedocumented in this encounter Additional Health Concerns Assessment Noted Time PHQ-9 Depression Total Score: 1 06/15/19 24 10:29 AM EST documented as of this encounter Care Teams Painting Technician Relationship Specialty Start Date End Date Gavi Aldana DO [address] [place] [address] PCP - General Family Medicine 06/06/18 documented as of this encounter
--- OUTSIDE RECORDS SUMMARY | 2024-09-04 09:12 | XMS_ITS | Encounter Summary ---
Author Organization [employer] [facility] Address [address] [place] [address] 7t [place] [address] Care Team Providers Care Consultant Teacher Name Role Phone Gavi Aldana DO Primary Care Provider + [phone] Reason for Visit * Reason Comments Med Refill Encounter Details Date Type Department Care Team ([facility] Contact Info) Description 10/11/2022 Refill [facility] [address] [place] [address] Gavi Aldana DO [address] [place] [address] Other chronic pain Social History Tobacco Use [...] Department Care Team (Late Contact Info) Description 10/12/2024 9:00 AM EDT Office Visit [facility] ADULT [facility] [address] [place] [address] José Miguel Sy DDS [address] [place] [address] documented as of this encounter Visit Diagnoses Diagnosis Other chronic pain documented in this encounter Care Teams Consultant Teacher Relationship Specialty Start Date End Date Gavi Aldana DO [address] [place] [address] PCP - General Family Medicine 06/06/18 documented as of this encounter
--- OUTSIDE RECORDS SUMMARY | 2024-09-04 09:12 | XMS_ITS | Encounter Summary ---
Author Organization [employer] [facility] Address [address] [facility] 7[address] [place] [address] Care Team Providers Care Locomotive Mechanic Name Role Phone Gavi Aldana DO Primary Care Provider + [phone] Encounter Details Date Type Department Care Team (Late st Contact Info) Description 12/14/2022 Orders Only [facility] [address] [place] [address] Gavi Duarte LPN Social History Tobacco Use [...] 9:00 AM EDT Office Visit [facility] [address] [place] [address] José Miguel Sy DDS [address] [place] [address] documented as of this encounter Visit Diagnoses Not on filedocumented in this encounter Care Teams Locomotive Mechanic Relationship Specialty Start Date End Date Gavi Aldana DO [address] [place] [address] PCP - General Family Medicine 06/06/18 documented as of this encounter
--- OUTSIDE RECORDS SUMMARY | 2024-09-04 09:12 | XMS_ITS | Encounter Summary ---
Author Organization [employer] [facility] Address [address] [facility] [address]t [place] [address] Care Team Providers Care Data Capture Specialist Name Role Phone Gavi Aldana DO Primary Care Provider + [phone] Encounter Details Date Type Department Care Team (Late st Contact Info) Description 07/22/2022 Orders Only [facility] [address] [place] [address] Gavi Duarte LPN Social History Tobacco Use [...] 10/12/2024 9:00 AM EDT Office Visit [facility] ADULT DENTAL [address] [place] [address] José Miguel Sy DDS [address] [place] [address] documented as of this encounter Visit Diagnoses Not on filedocumented in this encounter Care Teams Data Capture Specialist Relationship Specialty Start Date End Date Gavi Aldana DO [address] [place] [address] PCP - General Family Medicine 06/06/18 documented as of this encounter
--- OUTSIDE RECORDS SUMMARY | 2024-09-04 09:12 | XMS_ITS | Data Portability ---
Author Organization [employer] Address [address] [place] [address] Assessment Encounter Date Assessment Date Assessment LastModified by Organization Details LastModified Time 03/17/2023 03/17/2023 As noted, we were called to see this patient regarding concerns of cough. Evaluation in the field was performed by my accelerator technician colleague, as noted above, I provided real-time [...] SNOMED-CT Code Diagnosis ICD10 Code Diagnosis Note [id number] Amparo Marley MD Main - [address] [phone] 03/17/2023 19:40:50 03/17/2023 19:55:52 Health Concerns Section Related Observation LastModified by Organization [employer] LastModified Time None Recorded Concern Status LastModified by Organization Details LastModified Time None Recorded Advance Directives Directive None Recorded Payers Encounter Date Sequence Insurance Name Policy Number Policy Ivy Covered Member ID Ivy Member ID Guarantor Name 03/17/2023 1 [facility] - DOS ON OR AFTER 2022 - DUAL ELIGIBLE - CUSTODIAL OPTIONS AND ONE CARE (MEDICARE REPLACEMENT/ADV ANTAGE - HMO) Candi Sanchez [id number] Candi Sanchez Notes Date Note Type Note [...] CRC RN DID NOT NEED FURTHER INFO [facility] HPI: 3 weeks, sore throat throughout, cough throughout. dry cough. has never had something like this before. some sour taste, depending on what she ate. no abdominal, a little epigastric burning. Saw provider, got tessalon perles, initially helpful but then. 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 Amparo Marley MD [address] [facility],[address], [place], [address], [employer] 03/17/2023 19:55:51 OBGyn Episode No OBEpisode recorded.
--- OUTSIDE RECORDS SUMMARY | 2024-09-04 09:12 | XMS_ITS | Clinical Summary ---
Author Organization [facility] Address [address] [place] [address] Phone Care Team Providers Care Gi Technician Name Role Phone Kelle Aldanafer Ej [place] Primary Care Provider [phone] Allergies No known active allergies Medications metFORMIN [...] 240 g 1 5 09/01/19 25 Active Problems Problem Noted Date Diagnosed Date DM type 2 (diabetes mellitus, type 2) 07/28/2011 Hyperlipidemia with target LDL less than 70 07/08 Overview (05/02/2024): IMO update Hypertension 07/28/2011 Non-ischemic cardiomyopathy 07/28/2011 Encounters Date Type Department Care Team Description 07/02/2024 9:00 AM EST Office Visit Orthopedic Surgery [facility] [address] [phone] Kota De La Torre DPM Primary osteoarthritis [...] 11:00 AM EDT Consult Vascular Surgery - [place] [address] [place] [phone] Tiffanie Holbrook MD [address] [place] [address] 10/01/2024 9:00 AM EDT Office Visit Orthopedic Surgery [facility] [address] [phone] Kota De La Torre DPM [address] [address] Health Maintenance Due Date Last Done Comments [...] complete this topic Insurance MED[place] - [place] [facility] Member Subscriber Plan / Payer (Ef fective 2014-Present) Name:Candi Sanchez Relation to Subscriber:Self Name:Candi Sanchez Payer ID:[id number] Group ID:[id number] Type:Not on file Address: [address] [place] [address] Care Teams Gi Technician Relationship Specialty Start Date End Date Gavi Aldana DO [address] [place] [address] PCP - General Internal Medicine 10/27/11
--- OUTSIDE RECORDS SUMMARY | 2024-09-04 09:12 | XMS_ITS | Clinical Summary ---
Author Organization [employer] Address [address] [place] [address] [address] [place] [address] Care Team Providers Care Nutrition Instructor Name Role Phone Gavi Aldana DO Primary Care Provider [phone] Allergies Active Allergy Reactions Criticality Noted Date [...] FOR COUGH 30 capsule 023 Active Nystop 284677 UNIT/GM powder APPLY TO THE AFFECTED AREA(S) [...] capsule 1 023 Active UltiCare Short Pen [place] 31G X 8 MM misc USE DIRECTED [...] patch after 12 hours. 30 patch Active baclofen (Lioresal) 10 MG tabletIndicat ions:Acute pain of right shoulder Take one tablet TID PRN 42 tablet Active baclofen (Lioresal) 10 MG tablet Take 10 mg by mouth if needed in the morning, at noon, and at bedtime. 022 2024 Discontinued(M ed list cleanup (will not trigger notification to Pharmacy)) ibuprofen 600 MG tabletIndicat ions:Acute pain of right shoulder Take 1 tablet (600 mg) by mouth 3 times daily for 14 days. 42 tablet 025 2024 Active Problems Problem Noted Date Diagnosed Date [...] reports [facility] wears a mask Physical exam wnl Rapid strep, Covid and Flu negative Plan: supportive measures, recommended Tylenol prn, pt to test at home if symptoms do not improve or worsen and notify us if positive or worsening of symptoms Pt verbalized understanding Encounters Date Type Department Care Team Description 08/29/2024 Telephone [facility] [address] [place] [phone] Gavi Aldana DO Prior Auth Prescription 08/28/2024 9:00 AM EDT Office Visit [facility] ADULT DENTAL [address] [place] [phone] José Miguel Sy DDS Dental caries (Primary Dx) 08/28/2024 Orders Only [address] [address] Gavi Aldana DO Microscopic hematuria (Primary Dx) 08/24/[address] [address] Gavi Aldana DO Results 08/24/[address] [address] Gavi Aldana DO Durable Medical Equipment 08/23/2024 Orders Only [facility] External Provider, [facility] 08/15/2024 8:40 AM EDT Office Visit [facility] [address] [place] [phone] Veena White NP Acute pain of right shoulder (Primary Dx); Hand swelling 07/17/2024 Orders Only GENERIC EXTERNAL DATA DEPARTMENT Provider, Generic External Data 07/11/2024 8:00 AM EST Office Visit [facility] ADULT DENTAL [address] [place] [address] José Miguel Sy DDS Dental caries into pulp (Primary Dx) 07/04/2024 9:00 AM EST Office Visit [facility] ADULT DENTAL [address] [place] [address] Laura Dow Dental caries into pulp (Primary Dx); Dental calculus; Localized gingival recession; Dental caries; Missing teeth, acquired; Chronic dental pain 06/18/2024 9:30 AM EST Clinical Support [facility] [address] [place] [address] Christine Spencer RN Forgetfulness 06/18/2024 Travel from Last 3 Months Immunizations Name [...] Sign Reading Time Taken Comments Blood Pressure 126/76 08/28/2024 9:02 AM EDT Pulse 90 08/15/2024 8:51 AM [...] Description 10/12/2024 9:00 AM EDT Office Visit [facility] ADULT DENTAL [address] [place] [address] José Miguel Sy, DDS [address] [place], [place] [phone] Health Maintenance Due Date Last Done Comments CT Colonography 1950 FIT DNA/Cologuard 1950 FIT 1950 FOBT 1950 Sigmoidoscopy 1950 Diabetes: Foot Exam 1958 Eye Exam 1960 Dental Prophylaxis 09/09/2022 03/10/2022, 0 09/25/2018, 11/16/2017, Additional history exists RSV Patients and Patients Aged 60 years or older (1 - 1-dose 75+ series) 11/24/2023 COVID-19 Vaccine ( season) 2024 07/14/2021, 06/23/2021 Depression Screening 06/15/2024 06/15/2023, 06/15/19 24 Diabetes: Urine Protein Screening 09/19/2024 09/20/2023, 10/13/2022, [...] 03/10/2022, 11/16/2017, Additional history exists Tobacco Screening 08/28/2025 08/28/2024 DTaP/Tdap/Td Vaccines (3 - Td or Tdap) [...] Procedure Name Priority Date/Time Associated Diagnosis Comments BASIC METABOLIC PANEL Routine 08/28/2024 10:10 AM EDT Type 1 diabetes mellitus without complication (CMS/HCC) Essential hypertension Other hyperlipidemia Nonischemic cardiomyopathy (CMS/HCC) Immune thrombocytopenic purpura (CMS/HCC) Seropositive rheumatoid arthritis (CMS/HCC) Chronic pain of both shoulders Pulmonary nodules Multiple thyroid nodules Chronic cough Abnormal CT of the chest Nocturnal headaches Sleep-disordered breathing Forgetfulness Healthcare maintenance CYTOPATH-CELL ENHANCED Routine 08/28/2024 10:09 AM EDT Microscopic hematuria CASE PRESENTATION, DETAILED AND EXTENSIVE TREATMENT PLANNING Routine 08/28/2024 9:00 AM EDT 31 DOBB(V) RESIN-BASED COMPOSITE - 3 SURF, POSTERIOR Routine 08/28/2024 9:00 AM EDT US THYROID Routine 08/23/2024 9:44 AM EDT [...] FILLING Routine 07/04/2024 1 2:00 AM EST HEPATITIS PANEL, GENERAL Routine 05/09/2024 9:54 AM EST LIPID PANEL, STANDARD Routine 09/20/2023 7:27 AM EDT Type 2 diabetes mellitus without complication, with long-term current use of insulin ([facility]) ALBUMIN, RANDOM URINE W/CREATININE Routine 09/20/2023 7:23 [...] Relevant to Health Maintenance Results * (ABNORMAL) Basic Metabolic Panel (08/28/2024 10:10 AM EDT) Sodium 139 135 - 145 mmol/L [facility] Potassium 3.9 3.3 - 5.1 mmol/L [facility] Chloride 106 96 - 108 mmol/L [facility] Carbon Dioxide 28 22 - 29 mmol/L [facility] Anion Gap 9(L) 12 - 20 [facility] Urea Nitrogen (BUN) 17(H) 9 - 16 mg/dL [facility] Creatinine, Serum 0.78 0.5 - 1.4 mg/dL [facility] Estimated Glomerular Filt Rate >60 [facility] Comment:Chronic Kidney Disea se: Estimated GFR < 60 mL/min/1.48o4Kmcwpz Kidney Disease: Estimated GFR < 15 mL/min/1.73m2 Glucose 298(H) 60 - 115 mg/dL [facility] Calcium 8.9 8.4 - 10.2 mg/dL [facility] Blood Venous blood specimen / Unknown 08/28/2024 10:10 AM EDT 08/28/2024 11:12 AM EDT us Gavi Aldana DO LAB BLOOD ORDERABLES Final R esult [facility] [address] [place] [phone] * Cytopath-cell enhanced (08/28/2024 10:09 AM EDT) 08/28/2024 10:0 9 AM EDT 08/29/2024 6:10 AM EDT Narrative [facility] - 08/31/2024 11:09 AM EDT ----- ------- Name: Daniel MuellerCandi Campbell ? Age/Sex: 73/F ? : 1950 Unit#: [id number] ?? Attend Dr: Gavi Aldana DO ?Re08/28/24 ?Status: DEP REF ? Location: HO.CL ? Disch: ? ----- ------- SPEC : [id number] ? RECD: 08/29/24 ? STATUS: ??SOUT ? REQ NUM: [id number] ? MILAN: 08/28/24-1008 ? SUBM DR: Gavi Aldana DO ? ENTERED: ??08/29/24 ?SP TYPE: Cytology ? OTHR : ? ORDERED: ??Cyto-enhanced ? Diagnosis ?? Urine, cytology: ??Negative for high-grade urothelial carcinoma. ? COMMENT: ??Review of the cytology preparation demonstrates a hypocellular specimen ?? composed of few squames and urothelial cells. Red blood cells are noted. There is no ?? significant atypia seen. ?Clinical History Other microscopic hematuria ? Material Received ?? Urine ? Gross Description Received is 42 cc of dark yellow fluid from which a ThinPrep slide is prepared. ----- ------- Signed (signature on file) Arlin Ogden MD 08/31/24 4789 ? ----- ------- ? END OF REPORT ? us Gavi Aldana DO LAB CYTOLOGY ORDERABLES Karina terry Result [facility] [address] [place] [phone] [phone] * US Thyroid (08/23/2024 9:44 AM EDT) Anatomical Region Laterality Modality Head, Neck Ultrasound 08/23/2024 9:44 AM EDT Narrative 08/23/2024 3:29 PM EDT ? [facility] ?[address] ?[place] [address] ? Ultrasound Report ? Signed ? Patient: Sanchez Mueller,[place] ?MR#: ?? [id number] ? : 1950 ?Acct:[id number] ? Age/Sex: 73 / F ?ADM Date: 08/23/24 ? Loc: HO.US ? Attending Dr: Shruthi Cui MD ? Ordering Physician: Shruthi Cui MD ?? Date of Service: 08/23/24 ?? Procedure(s): US thyroid ?? Accession Number(s): [id number] ? cc: Gavi Aldana DO; Shruthi Cui [...] or equal to 1 cm: 4. ?? Gardening Supervisor nodules are described as follows: ? 1. [...] PM EDT RP ? Dictated By: ?Divine,Vladislav Conroy MD ? Signed By: ?<Electronically signed by Vladislav Haskins MD in OV> ?08/23/24 1525 ? DD/ 0944 ? TD/TT: 08/23/24 0955 ? [employer]: MSM ? Procedure Note Donjaeter, Image - 08/23/[address] [address] Ultrasound Report Signed Patient: Candi Solomon EMR#: [id number] : 9Acct:[id number] Age/Sex: 73 / FADM Date: 08/23/24 Loc: HO.US Attending Dr: Shruthi Cui MD Ordering Physician: Shruthi Cui MD Date of Service: 08/23/24 Procedure(s): US thyroid Accession Number(s): [id number] cc: Gavi Aldana DO; Shruthi Cui MD [...] than or equal to 1 cm: 4. Gardening Supervisor nodules are described as follows: 1. Location: [...] Vladislav Haskins MD 08/23/2024 03:25 PM EDT RP Dictated By: Vladislav Haskins MD Signed By: <Electronically signed by Vladislav Haskins MD in OV> 08/23/24 1525 DD/ 0944 TD/TT: 08/23/24 0955 [employer]: [facility] External Provider IMG US PROCEDURES Final Result * CT Chest w/o Contrast (08/17/2024 9:18 AM EDT) Anatomical Region Laterality Modality Body, Chest Computed Tomogra phy 08/17/2024 9:18 AM EDT Narrative 08/17/2024 9:19 AM EDT ? [facility] ?[address] ?[place] [address] ? CT Scan Report ? Signed ? Patient: Sanchez Mueller,[place] ?MR#: ?? [id number] ? : 1950 ?Acct:[id number] ? Age/Sex: 73 / F ?ADM Date: 03/13/25 ? Loc: HO.CT ? Attending Dr: Gavi Aldana DO ? Ordering Physician: Gavi Aldana DO ?? Date of Service: 08/16/24 ?? Procedure(s): CT chest wo IV con ?? Accession Number(s): [id number] ? cc: Gavi Aldana DO ? Report Number: ?? [id number]: Total DLP = ??117.00 mGy-cm ? CLINICAL [...] Baldev Yousif MD in OV> ? 08/17/24 0919 ? DD/ 0918 ? TD/TT: 08/17/24 0918 ? [employer]: ? Procedure Note Jose Da Silva - 08/17/[address] [address] [address] Scan Report Signed Patient: Candi Solomon EMR#: [id number] : 9Acct:[id number] Age/Sex: 73 / FADM Date: 08/16/24 Loc: HO.CT Attending Dr: Gavi Aldana DO Ordering Physician: Gavi Aldana DO Date of Service: 08/16/24 Procedure(s): CT chest wo IV con Accession Number(s): [id number] cc: FlacoGavi humphreys Report Number: [id number]: Total DLP = 117.00 mGy-cm CLINICAL HISTORY: [...] in OV> 08/17/24918 DD/ 7 TD/TT: 08/17/24917 [employer]: us Gavi Jovan DO IMG CT PROCEDURES Final Resu lt * CT Head w/o Contrast (08/17/2024 9:09 AM EDT) Anatomical Region Laterality Modality Head, Neck Computed Tomogra phy 08/17/2024 9:09 AM EDT Narrative 08/17/2024 9:11 AM EDT ? [facility] ?[address] ?[place] [address] ? CT Scan Report ? Signed ? Patient: Sanchez Mueller,[place] ?MR#: ?? [id number] ? : 1950 ?Acct:[id number] ? Age/Sex: 73 / F ?ADM Date: 03/13/25 ? Loc: HO.CT ? Attending Dr: Gavi Aldana DO ? Ordering Physician: Gavi Aldana DO ?? Date of Service: 08/16/24 ?? Procedure(s): CT head/brain wo IV con ?? Accession Number(s): [id number] ? cc: Gavi Aldana DO ? Report Number: ?? [id number]: Total DLP = ??715.00 mGy-cm ? CLINICAL [...] by Baldev Yousif MD in OV> ? 08/17/2410 ? DD/ 8 ? TD/TT: 08/17/24908 ? [employer]: ? Procedure Note Rekha, Image - 08/17/[address] [place] [address] [address] Scan Report Signed Patient: Candi Solomon EMR#: [id number] : 9Acct:[id number] Age/Sex: 73 / FADM Date: 08/16/24 Loc: HO.CT Attending Dr: Gavi Aldana DO Ordering Physician: Gavi Aldana DO Date of Service: 08/16/24 Procedure(s): CT head/brain wo IV con Accession Number(s): [id number] cc: Gavi Aldana DO Report Number: [id number]: Total DLP = 715.00 mGy-cm CLINICAL HISTORY: [...] in OV> 08/17/24909 DD/ 8 TD/TT: 08/17/24908 [employer]: us Gavi Aldana DO IMG CT PROCEDURES Final Resu lt * Vitamin B12 (Cobalamin) and Folate Panel, Serum (08/15/2024 9:43 AM EDT) Vitamin B12 726 200 - 900 pg/mL [facility] Comment:NORMAL 200-900 PG/M L INDETERMINATE 160-199 PG/ML DEFICIENT < 160 PG/ML Folate 10.0 > or = 4.0 ng/mL [facility] Comment:Reference Values:> o r = 4.0 [...] LAB BLOOD ORDERABLES Final R esult [facility] [address] [place] [phone] * RPR (Monitor) with Reflex to??Titer (08/15/2024 9:43 AM EDT) RPR (Monitor) w/Refl Titer NON-REACTI VE NON-REACT CAPRICE [facility] Comment:THIS TEST WAS PERFOR MED AT:[facility] [place] [id number] ULLOA MD Rapid Plasma Reagin Ab Titer TNP [facility] Blood Venous blood specimen / Unknown 08/15/2024 9:43 AM EDT 08/15/2024 11:45 AM EDT Gavi Aldana LAB BLOOD ORDERABLES Final R esult Performing Organization Address [facility]/ZIP Co de Phone Number [facility] [address] [place] [phone] * (ABNORMAL) Hemoglobin A1c (08/15/2024 9:43 AM EDT) Hemoglobin A1c 8.0(H) <6.0 % [facility] Comment:Hemoglobin A1C Refer ence Range Adults: 4.8 - 6.0 % Non diabetic: < 6.0 % Goal: < 7.0 %Additional Action Suggested: > 8.0 %Note: Hemoglobin A1c results are invalid for patients with abnormal amounts of HbF. Blood transfusions may impact the HbA1c concentration in the patient sample. Estimated Average Glucose 183 mg/dL [facility] Comment:eAG = Estimated ave rage glucose which is %A1C expressed asaverage glucose, using the formula of the S9Q-PhvpuvqCimhtmu Glucose study (ADAG), Diabetes Care, Vol.31,#8,Jan. 2007 Blood Venous blood specimen / Unknown 08/15/2024 9:43 AM EDT 08/15/2024 11:45 AM EDT Gavi Aldana DO LAB BLOOD ORDERABLES Final R esult Performing Organization Address [facility]/ZIP Co de Phone Number [facility] [address] [place] [phone] * (ABNORMAL) Urinalysis Complete (08/15/2024 9:42 AM EDT) Color Urine Dark Yellow [facility] Appearance Urine Clear [facility] PH 5.5 5.0 - 9.0 [facility] Glucose Urine UA Negative Negative mg/dL [facility] Urine Blood Small (1+)(A) Negative [facility] Specific [place] - Urine >=1.030(H) 1.005 - 1.025 [facility] Urine Protein 300 (3+)(A) Neg-Trace mg/dL [facility] Urine Ketones Trace Negative mg/dL [facility] Nitrite Urine Negative Negative [facility] Leukocyte Esterase Urine Negative Negative [facility] RBC Urine >20(A) 0 - 2 /HPF [facility] Urine WBC 0-5 0 - 5 /HPF [facility] Urine Squamous Epithelial Cell 0-2 0 - 2 /HPF [facility] Urine Bacteria None Seen None Seen [facility] Hyaline Casts, Urine 3-5 0 - 2 /LPF [facility] Urine (Urine, Random) 08/15/2024 9:42 AM EDT 08/15/2024 11:25 AM EDT us Gavi Aldana DO LAB URINE ORDERABLES Final R esult Performing Organization Address City/State/[facility] Co de Phone Number [facility] [address] [place] [address] [phone] * (ABNORMAL) Glucose, Whole Blood (07/17/2024 9:33 AM EST) Glucose, Whole Blood 287(H) 60 - 115 mg/dL [facility] Comment:METER #: [id number] 5Testing performed in the Endocrinology Department [address] , [address], [facility]. 07/17/2024 9:33 AM EST 07/17/2024 9:38 AM EST us Generic External Data Provider LAB BLOOD ORDERAB LES Final Result Performing Organization Address [facility]/ZIP Co de Phone Number [facility] [address] [place] [phone] * Hepatitis Panel, General (05/09/2024 9:54 AM EST) Pathologist [facility] Hepatitis A IgM Nonreactive Nonreactive [facility] Comment:IgM antibodies to MCCANN V not detected; does not exclude earlyacute or recovered HAV infection. ~Hepatitis B Surface Antibody REACTIVE Nonreactive [facility] Comment:REACTIVE: > 11.99 mI U/mL Hepatitis B Core Antibody Nonreactive Nonreactive [facility] Hepatitis C Antibody Nonreactive Nonreactive [facility] Comment:Antibodies to HCV no t detected; does not exclude early acuteHCV infection. Hepatitis B Surface Ag Negative Negative [facility] 05/09/2024 9:54 AM EST 05/09/2024 9:54 AM EST Generic External Data Provider LAB BLOOD ORDERAB LES Final Result Performing Organization Address [facility]/ZIP Co de Phone Number [facility] [address] [place] [phone] * Lipid Panel, Standard (09/20/2023 7:27 AM EDT) Triglycerides 96 <150 mg/dL [facility] Comment:Desirable Triglyceri de: less than 150 mg/dLBorderline High Triglyceride 150-199 mg/dLHigh Triglyceride: 200-499 mg/dLVery High Triglyceride: greater than or equal to 5OO mg/dL Cholesterol 139 <200 mg/dL [facility] Comment:Desirable Cholestero l: less than 200 mg/dLBorderline High Cholesterol: 200-239 mg/dLHigh Cholesterol: greater than 239 mg/dL LDL Cholesterol Calculated 69 <100 mg/dL [facility] Comment:Desirable LDL: less than 100 mg/dLNear Optimal/Above Optimal LDL: 110- 129 mg/dLBorderline High LDL: 130-159 mg/dLHigh LDL: 160-189 mg/dLVery High LDL: greater than or equal to 190 mg/dL HDL Cholesterol 51 >40 mg/dL [facility] Comment:Desirable HDL: great er than 40 mg/dL Note: This HDL assay may give artificially low results in patients with liver disease. Blood Venous blood specimen / Unknown 09/20/2023 7:27 AM EDT 09/20/2023 7:27 AM EDT Gavi Aldana DO LAB BLOOD ORDERABLES Final R esult Performing Organization Address [facility] de Phone Number [facility] [address] [place] [phone] * (ABNORMAL) Albumin, Random Urine W/Creatinine (09/20/2023 7:23 AM EDT) Creatinine, Urine 211.65 mg/dL [facility] Microalbumin Urine 817.0 mg/L [facility] Microalbum Creatinine Ratio Ur 386.0(H) <30 ug/mg cr [facility] Comment:Albumin/Creatinine R atio Reference Ranges: Normal: < 30 ug/mg creatinine Microalbuminuria: 30 - 300 ug/mg creatinineClinical Albuminuria: > 300 ug/mg creatinine Urine (Urine, Random) 09/20/2023 7:23 AM EDT 09/20/2023 7:41 AM EDT Gavi Aldana DO LAB URINE ORDERABLES Final R esult Performing Organization Address [facility] de Phone Number [facility] [address] [place] [phone] * Hm Colonoscopy (07/28/2021 2:52 PM EST) Historical Provider HEALTH MAINTENANCE Final Result from Last 3 Months or Most Recently Relevant to Health Maintenance Insurance [facility] Member Subscriber Plan / Payer (Ef fective 2014-Present) Name:Candi Sanchez Relation to Subscriber:Self Name:Candi Sanchez Payer ID:Not on file Group ID:[id number] Type:Not on file Address: [address] [place] [phone] [facility] - [facility] Care Teams Nutrition Instructor Relationship Specialty Start Date End Date Gavi Aldana DO [address] [place] [address] PCP - General Family Medicine 06/06/18
--- OUTSIDE RECORDS SUMMARY | 2024-09-04 09:12 | XMS_ITS | Data Portability ---
Author Organization [place] - [facility], Allergy Address [address] [facility] [address] [place] [address] Care Team Providers Care Golf Course Laborer Name Role Phone MARTINEZ VIZCARRA Primary Care [...] copy of the audiogram, a list of [facility] hearing aid providers, and medical clearance for [...] Organization Details Recorded Time Dizziness and giddiness 843695765 Active 2018 Dizziness and giddiness ; Note: Date Diagnosed : 01/25/2019 11:02 AM (R42) Not Available [facility] 4 02:39:47 Impacted cerumen of bilateral ears [id number] 87842 Active 2018 Impacted cerumen, bilateral ; Note: Date Diagnosed : 01/25/2019 11:05 AM (H61.23) Not Available [facility] 4 02:39:43 Bilateral tinnitus 36385274963 02 Active 2018 Tinnitus, bilateral ; Note: Date Diagnosed : 01/25/2019 11:24 AM (H93.13) Not Available [facility] 4 02:39:43 Cough 82132468 Active 2020 Cough, unspecifi ed; Note: Changed from R05 to R05.9 ( 4 9:23 AM) , Date Diagnosed : 02/11/2021 10:17 AM (R05) WYATT NAVA MD [address] [place] [address], [phone] , [facility] - [facility] 4 10:02:57 Benign paroxysma l positiona l vertigo 882677153 Active 2018 Benign paroxysma l vertigo, unspecifi ed ear; Note: Date Diagnosed : 01/25/2019 11:03 AM (H81.10) Not Available [facility] 4 02:39:53 Sensorine ural hearing loss of bilateral ears 430862304 Active 2018 Sensorine ural hearing loss, bilateral ; Note: Date Diagnosed : 01/25/2019 11:24 AM (H90.3) Not Available [facility] 4 02:39:48 Gastroeso phageal reflux disease without esophagit is 389359350 Active 2023 Gastro-es ophageal reflux disease without esophagit is; Note: Date Diagnosed : 08/25/2023 10:32 AM (K21.9) Not Available [facility] 02:39:48 Allergic rhinitis 10477434 Active 2023 Allergic rhinitis, unspecifi ed; Note: Date Diagnosed : 08/01/2023 10:25 AM (J30.9) Not Available [facility] 02:39:50 Nasal congestio n 78406274 Active 2023 Nasal congestio n; Note: Date Diagnosed : 08/01/2023 10:25 AM (R09.81) Not Available [facility] 02:39:53 Problem Notes None recorded. Procedures Surgical History Date Name Laterality Status Provider Name and Address Organization Details Recorded Time 07/30/19 25 Wax_DP completed WYATT NAVA MD [address] [place] [address], [phone], [facility] 07/30/2024 08:53:51 07/30/19 25 Air only Audio (97389) completed Nupur DIOP [address] [place] [address], [phone], [facility] 07/30/2024 09:17:09 07/30/19 25 Tympanometry (89710) completed Nupur DIOP [address] [place] [address], [phone], [facility] 07/30/2024 09:17:15 Imaging Results Imaging Date [...] mg tablet 04/27 completed Medicati on ID: [id number] B rand Name: atorvast atin Sen d Method: E-Prescr ibed Sub s Allowed: subs OK Speci al Instruct ion: TOME PRAVEEN TABLETA TODOS LOS D AL ACOSTARS E Medica tionGene ricName: atorvast atin Not Available Not Available Not Available Vitamin C 500 mg tablet active Medicati on ID: [id number] B rand Name: Vitamin C Send Method: [...] layed release 02/11 completed Medicati on ID: [id number] D uration Value: 90 Brand Name: aspirin Send Method: E-Prescr ibed Sub s Allowed: subs OK Speci al Instruct ion: TOME PRAVEEN TABLETA POR V?A ORAL TODOS LOS D? Med icationG enericNa me: aspirin Not Available Not Available Not Available tramadol 50 mg tablet active Medicati on ID: [id number] B rand Name: tramadol Send Method: E-Prescr ibed Sub s Allowed: subs OK Medic ationGen ericName : tramadol Not Available Not Available Not Available spironola ctone 25 mg tablet active Medicati on ID: [id number] B rand Name: spironol actone S end [...] 10 mg tablet active Medicati on ID: [id number] B rand Name: baclofen Send Method: E-Prescr ibed Sub s Allowed: subs OK Speci al Instruct ion: TAKE 1 TABLET BY MOUTH 3 TIMES EVERY DAY NEEDED FOR MUSCLE SPASM/PA IN [facility] ericName : baclofen Not Available Not Available Not Available benzonata te 100 mg capsule TAKE 1 CAPSULE BY MOUTH THREE TIMES DAILY NEEDED FOR COUGH active Not Available Not Available No t Available pantopraz ole 40 mg tablet,de layed release active Medicati on ID: 903289 B rand Name: pantopra zole Sen d Method: E-Prescr ibed Sub s Allowed: subs OK [facility] ericName : pantopra zole Not Available Not Available Not Available ferrous sulfate 325 mg (65 mg iron) tablet 04/27 completed Medicati on ID: [id number] B rand Name: ferrous sulfate Send Method: [...] mg tablet 02/11 completed Medicati on ID: [id number] D uration Value: 90 Brand Name: metoprol [...] (0.125 mg) tablet active Medicati on ID: 948708 B rand Name: digoxin Send Method: E-Prescr [...] mg capsule 02/11 completed Medicati on ID: [id number] B rand Name: gabapent in Send Method: E-Prescr ibed Sub s Allowed: subs OK Medic ationGen ericName : gabapent in Not Available Not Available Not Available Novolog U-100 Insulin aspart 100 unit/mL subcutane ous solution active Medicati on ID: 775962 B rand Name: Novolog U-100 Insulin aspart S end Method: E-Prescr ibed Sub s Allowed: subs OK Speci al Instruct ion: UP TO 100 UNITS VIA INSULIN PUMP SUBCUT DAILY Me dication GenericN norma: Novolog U-100 Insulin aspart Not Available Not Available Not Available nystatin 100,000 unit/gram topical powder 04/27 completed Medicati on ID: [id number] B rand Name: nystatin Send Method: E-Prescr ibed Sub s Allowed: subs OK Speci al Instruct ion: APLIQUE AL LIAT AFECTADA DOS VECES AL D A Medica tionGene ricName: nystatin Not Available Not Available Not Available albuterol sulfate HFA 90 mcg/actua tion aerosol inhaler 02/11 completed Medicati on ID: 813006 B rand Name: albutero l sulfate Send Method: E-Prescr ibed Sub s Allowed: subs OK Speci al Instruct ion: TOME DOS INHALACI ONES POR V A ORAL CADA CUATRO A SEIS HORAS CUANDO SEA NECESARI O Medica tionGene ricName: albutero l sulfate Not Available Not Available Not Available fluticaso ne propionat e 50 mcg/actua tion nasal spray,lalo pension active Medicati on ID: 545163 B rand Name: fluticas one propiona te [...] 40 mg tablet active Medicati on ID: 116915 B rand Name: valsarta n Send Method: [...] mg-50 mg tablet active Medicati on ID: [id number] B rand Name: Senna Plus Sen d [...] ion nasal spray active Medicati on ID: [id number] B rand Name: Narcan S end Method: [...] pen injector 02/11 completed Medicati on ID: [id number] D uration Value: 30 Brand Name: Ozempic [...] Available Not Available Not Available Dexcom [employer] Supervisor USE DIRECTED active Not Available Not [...] Updated DateTime 04/27/2024 149.86 cm 26.7 kg/m2 65704.19 g Susy Vera [place] - [facility] 04/27/2024 09:48:20 Date Recorded Body height Body mass index (BMI) Body weight Provider Name and Address Organization Details Last Updated DateTime 07/30/2024 149.86 cm 26.7 kg/m2 03179.19 g Nash Hammond [place] - [facility] 07/30/2024 08:41:37 Social History None recorded. Functional Status None recorded. Mental Status None recorded. Family History Nothing Reported. Medical History Condition Response Diabetes Y Gynecological HistoryNo gynecological history recorded. Obstetrics History GPAL:G 0 P 0 0 0 0 Past Encounters Encounter ID Performer Location Encounter Start Date Encounter Closed Date Diagnosis/Indication Diagnosis SNOMED-CT Code Diagnosis ICD10 Code Diagnosis Note [id number] WYATT NAVA MD [facility] [address] [address] 04/27/2024 09:29:27 04/27/2024 10:08:17 Cough 93066074 R05.9 Sensorineu ral hearing loss of bilateral ears 084839537 H90.3 [id number] WYATT NAVA MD [facility] [address] [address] 07/30/2024 08:36:37 07/30/2024 09:43:52 Sensorineural hearing loss of bilateral ears 506175760 H90.3 Audiologic al evaluation results: Right ear: [...] seal}} Impacted c erumen of bilateral ears 7270404683 026426 H61.23 Ears were meticulous ly cleaned bilaterall [...] Guarantor Name 04/27/2024 2 [facility] [facility] [place] (MEDICARE REPLAC[place]/ADV ANTAGE - HMO) Candi Sanchez [id number] Candi Sanchez 07/30/2024 1 [facility] - DOS ON OR AFTER 2022 - [employer] (MEDICARE REPLACEMENT/ADV ANTAGE - HMO) Candi Sanchez [id number] Candi Sanchez Notes Date Note Type Note [...] 2 pills. Rx famotidine WYATT NAVA MD [address] [place] [address],[place] [address], [place], [address], [place] [facility] 04/27/2024 10:06:17 07/30/2024 text/html IPad - Spanishhe aring lossdid not pursue hearing aids in past year 08/01/23 Dr Kern audiomild sloping to severe B SNHLcleared for B HAE PV 04/27/24 Iris - cough - improved with meds from pulscotty NAVA MD [address] [place] [address], [place], [address], [facility] - [facility] 07/30/2024 09:42:27 OBGyn Episode No OBEpisode recorded.
--- OUTSIDE RECORDS SUMMARY | 2024-09-04 09:12 | XMS_ITS | Encounter Summary ---
Author Organization [employer] Address [address] [facility] 7[address] [place] [address] Care Team Providers Care Adult Basic Education Instructor Name Role Phone Gavi Aldana DO Primary Care Provider + [phone] Reason for Visit * Reason Onset Date Comments Prior Auth Prescription 08/29/2024 Encounter Details Date Type Department Care Team ([facility] st Contact Info) Description 08/29/2024 Telephone [facility] MEDICINE [address] [place] [address] Gavi Aldana DO [address] [place] [address] Prior Auth Prescription Social History Tobacco Use Types Packs/Day Years [...] encounter Miscellaneous Notes * Telephone Encounter - Vianey Hameed - 08/31/2024 3:00 PM EDT PA DENIAL for lidocaine patches received and scanned into media. * Telephone Encounter - Vianey Hameed - 08/29/2024 4:14 PM EDT PA initiated on Covermymeds for Lidocaine patches . Approval/denial pending. Nelson: [id number] documented in this encounter Plan of Treatment Upcoming Encounters Date Type Department Care Team (Late st Contact Info) Description 10/12/2024 9:00 AM EDT Office Visit [facility] ADULT DENTAL [address] [place] [address] José Miguel Sy DDS [address] [place] [address] documented as of this encounter Visit Diagnoses Not on filedocumented in this encounter Additional Health Concerns Assessment Noted Time PHQ-9 Depression Total Score: 1 06/15/19 24 10:29 AM EST documented as of this encounter Care Teams Adult Basic Education Instructor Relationship Specialty Start Date End Date Gavi Aldana DO [address] [place] [address] PCP - General Family Medicine 06/06/18 documented as of this encounter
--- OUTSIDE RECORDS SUMMARY | 2024-09-04 09:12 | XMS_ITS | Encounter Summary ---
Author Organization [employer] Address [address] [facility] [address] [place] [address] Care Team Providers Care Digital Sales Executive Name Role Phone Gavi Aldana DO Primary Care Provider + [phone] Reason for Visit * Reason Comments Med Refill Encounter Details Date Type Department Care Team ([facility] st Contact Info) Description 04/04/2024 Refill [facility] MEDICINE [address] [place] [address] Gavi Aldana DO [address] [place] [address] Social History Tobacco Use Types Packs/Day Years [...] Description 10/12/2024 9:00 AM EDT Office Visit [facility] ADULT DENTAL [address] [place] [address] José Miguel Sy DDS [address] [place] [address] documented as of this encounter Visit Diagnoses Not on filedocumented in this encounter Additional Health Concerns Assessment Noted Time PHQ-9 Depression Total Score: 1 06/15/19 24 10:29 AM EST documented as of this encounter Care Teams Digital Sales Executive Relationship Specialty Start Date End Date Gavi Aldana DO [address] [place] [address] PCP - General Family Medicine 06/06/18 documented as of this encounter
--- OUTSIDE RECORDS SUMMARY | 2024-09-04 09:12 | XMS_ITS | Encounter Summary ---
Author Organization [facility] Address [address] [place] [address] [address] [place] [address] Care Team Providers Care Steam Train Driver Name Role Phone Gavi Aldana DO Primary Care Provider + [phone] Encounter Details Date Type Department Care Team (Late st Contact Info) Description 06/22/2022 Orders Only [facility] MEDICINE [address] [place] [address] Tamara Floyd LPN Social History Tobacco Use [...] Description 10/12/2024 9:00 AM EDT Office Visit [facility] ADULT DENTAL [address] [place] [address] José Miguel Sy DDS [address] [place], [place] [phone] documented as of this encounter Procedures Procedure Name Priority Date/Time Associated Diagnosis Comments GLUCOSE, WHOLE BLOOD Routine 07/06/2022 10:44 AM EST documented in this encounter Results * (ABNORMAL) Glucose, Whole Blood (07/06/2022 10:44 AM EST) Glucose, Whole Blood 204(H) 60 - 115 mg/dL [facility] Comment:METER #: [id number] 5Testing performed in the Endocrinology Department [address] , [address], [facility]. 07/06/2022 10:4 4 AM EST 07/06/2022 10:48 AM EST [facility] External Provider LAB BLO OD ORDERABLES Final Result Performing Organization Address City/State/[facility] Co de Phone Number [facility] [address] [place] [address] [phone] documented in this encounter Visit Diagnoses Not on filedocumented in this encounter Care Teams Steam Train Driver Relationship Specialty Start Date End Date Gavi Aldana DO [address] [place] [address] PCP - General Family Medicine 06/06/18 documented as of this encounter
--- OUTSIDE RECORDS SUMMARY | 2024-09-04 09:12 | XMS_ITS | Encounter Summary ---
Author Organization [employer] Address [address] [facility] 7[address] [place] [address] Care Team Providers Care Water Plumber Name Role Phone FlacoGavi humphreys Primary Care Provider + [phone] Encounter Details Date Type Department Care Team (Late st Contact Info) Description 09/14/2023 Orders Only [facility] MEDICINE [address] [place] [address] ProviderMeliton MD Social History Tobacco Use Types [...] Office Visit [facility] ADULT DENTAL [address] [place], [place] [phone] José Miguel Sy DDS [address] [place], [place] [phone] documented as of this encounter Procedures Procedure [...] documented as of this encounter Care Teams Water Plumber Relationship Specialty Start Date End Date Gavi Aldana DO [address] [place] [address] PCP - General Family Medicine 06/06/18 documented as of this encounter
[2024-09-04 09:22] LABS: Basophils Percent Auto 0.7 % (0-2); Eosinophils Absolute Auto 0.2 X10*3/uL (0.0-0.4); Eosinophils Percent Auto 3.8 % (0-4); Hematocrit 35.1 % (37.0-47.0); Hemoglobin 10.8 g/dl (12.0-16.0); Imm Gran Abs Auto 0.04 X10*3/uL (0.00-0.03); Imm Gran Pct Auto 0.7 % (0.0-0.4); Lymphocytes Percent Auto 16.4 % (20-40); Mean Corpuscular HGB Conc 30.8 g/dl (31.0-35.0); Mean Corpuscular Hemoglobin 23.3 pg (27.0-33.0); Mean Corpuscular Volume 75.8 fL (80.0-98.0); Monocytes Absolute Auto 0.5 X10*3/uL (0.1-1.2); Monocytes Percent Auto 8.5 % (2-11); Neutrophils Absolute Auto 4.2 x10*3/uL (2.0-8.3); Neutrophils Percent Auto 69.9 % (45-73); Platelet Count 158 X10*3/uL (160-400); Red Blood Count 4.63 X10*6/uL (4.20-5.50); Red Cell Distribution Width 13.8 % (11.0-16.0)
[2024-09-04 10:01] LABS: Alanine Aminotransferase 15 U/L (0-31); Alkaline Phosphatase 118 U/L (39-117); Anion Gap 6 (12-20); Aspartate Amino Transferase 26 U/L (5-31); Bilirubin Total 0.3 mg/dL (0.0-1.0); Blood Urea Nitrogen 14 mg/dL (9-16); C Reactive Protein 0.46 mg/dL (< or = 0.50); Calcium 9.3 mg/dL (8.4-10.2); Carbon Dioxide 29 mmol/L (22-29); Chloride 110 mmol/L (96-108); Estimated Glomerular Filt Rate > 60; Glucose Random 166 mg/dL (60-115); Potassium 3.7 mmol/L (3.3-5.1); Sodium 141 mmol/L (135-145); Total Protein 6.8 g/dL (6.5-8.0)
[2024-09-04 10:10] LABS: Erythrocyte Sedimentation Rate 34 MM/HR (0-20)
[2024-09-04 10:22] LABS: Thyroid Stimulating Hormone 1.41 uIU/mL (0.32-4.0)
[2024-09-04 10:23] LABS: Free T4 (Free Thyroxine) 1.31 ng/dL (0.71-1.85)
[2024-09-04 10:29] LABS: HBS Num1 946.14 mIU/mL (0-7.99); HBsAGNum1 0.32 S/CO (0.00-0.99); Hepatitis A Antibody IgM 0.18 Index (0-0.79); Hepatitis B Core Antibody Nonreactive (Nonreactive); Hepatitis B Surface Antigen Negative (Negative); ~HepC Num1 0.18 S/CO (0.00-0.79); ~Hepatitis A Antibody IgM Nonreactive (Nonreactive); ~Hepatitis B Surface Antibody REACTIVE (Nonreactive); ~Hepatitis C Antibody Nonreactive (Nonreactive)
[2024-09-07 17:43] LABS: TS Negative Control Passed; TS Panel A 0; TS Panel B 0; TS Positive Control Passed; TSpotTB Negative (Negative)
== END 2024-09-04 08:47 | disposition home or self-care (01) ==
LOC: HO.LAB 08:46
PROVIDERS: Student in an Organized Health Care Education/Training Program; PCP Family Medicine; Visit Provider Student in an Organized Health Care Education/Training Program
DX: M05.9 Rheumatoid arthritis with rheumatoid factor, unspecified (principal); E04.1 Nontoxic single thyroid nodule
CPT/HCPCS: 36415; 80053; 84439; 84443; 85025; 85652; 86140; 86481; 86704; 86706; 86709; 86803; 87340

== ENCOUNTER → 2024-09-05 09:39 | Outpatient (BNVA) | payer OTHER, SELFPAY | PROVIDERS: PCP Family Medicine; Visit Provider Internal Medicine Nephrology ==

== ENCOUNTER 2024-09-06 08:37 | Outpatient (AMB) | payer OTHER, SELFPAY ==
--- NOTE | 2024-09-06 08:40 | A.OFFVIS_ITS ---
Vital Signs 09/06/24 08:48 Height 5 ft 3 in Weight 134 lb 0.657 oz BMI 23.7 BP 142/80 H Blood Pressure Location Rt brachial Position Sitting Pulse 98 Pulse Source Pulse Oximeter Pulse Oximetry (%) 97 Oxygen Delivery Method Room Air Intake Visit Reasons: follow up Intake Note: Patient presents today for follow up. C/O pain on both shoulders, both arms, both hands/fingers, RT hip, RT knee. Both hands are very swollen. Taking Tylenol and its not working. Software Engineering Specialist Required: Yes Software Engineering Specialist Language: Ged Instructor Services: Software Engineering Specialist Present Software Engineering Specialist Name: Soumya [id number] Information Interpreted: non-clinical & clinical Allergies No Known Allergies Allergy (Verified 09/06/24 08:47) Medication List - Last Reconciled 09/06/24 by Megan Trinidad MD acetaminophen ER (Arthritis Pain Relief (acetaminophen) ER) 1 tab PO Q8H PRN acetone (urine) test (Ketone Urine Test strips) prn tid for glucose staying over 250 or symptoms of nausea/vomiting apixaban (Eliquis) 5 mg PO BID ascorbic acid (vitamin C) 500 mg PO DAILY atorvastatin 10 mg PO DAILY azithromycin For 250 mg dose pack: take 500 mg today (day 1), then 250 mg for 4 days (days 2-5) PO baclofen 10 mg PO TID PRN benzonatate 100 mg PO TID PRN 30 days blood sugar diagnostic As directed blood sugar diagnostic (FreeStyle Lite Strips) TEST BLOOD SUGAR FOUR TIMES DAILY blood-glucose meter (FreeStyle Lite Meter kit) As directed blood-glucose sensor ([employer] G7 Sensor device) As directed blood-glucose,inspector fuel hose,cont (Dexcom G7 Roof Technician) As directed Breo Ellipta 200-25 mcg/dose (fluticasone furoate-vilanterol) 1 inh inhalation DAILY 30 days NS cholecalciferol (vitamin D3) 50 mcg PO DAILY codeine-guaifenesin 10-100 mg/5 mL 10 mL PO Q4-6H PRN digoxin (Digox) 125 mcg PO DAILY famotidine 40 mg PO DAILY ferrous sulfate (FeroSul) 325 mg PO DAILY fluticasone propionate 50 mcg/actuation 2 sprays intranasal DAILY PRN folic acid 1 mg PO DAILY furosemide 20 mg PO DAILY glucagon 3 mg/actuation (Baqsimi) 3 mg intranasal .twice PRN 30 days MDD 6 mg glucose 8 - 16 grams PO NEEDED PRN ibuprofen 600 mg PO TID insulin aspart U-100 (Novolog FlexPen U-100 Insulin aspart) subcutaneously inject 4-7 units 3 times a day; 90 days insulin degludec (Tresiba FlexTouch U-200 insulin) 22 units (0.11 mL) subcut DAILY 30 days lancets (TRUEplus Lancets) As directed methotrexate sodium 15 mg (6 x 2.5 mg) PO QWEEK 90 days metoprolol tartrate 100 mg PO BID 30 days naloxone 4 mg/actuation (Narcan) 4 mg intranasal NEEDED PRN omeprazole 40 mg PO BID pen needle, diabetic (UltiCare Pen Needle) As directed pen needle, diabetic (BD Ultra-Fine Thania Pen Needle) USE DIRECTED FOUR TIMES DAILY sacubitril-valsartan 49-51 mg (Entresto) 1 tab PO BID sennosides-docusate sodium 8.6-50 mg (Senokot-S) 2 tab-caps (2 x 8.6-50 mg) PO BEDTIME spironolactone 25 mg PO DAILY HPI Comments Details: Patient is a 73-year-old female with hypertension, diabetes, coronary artery disease, heart failure with reduced ejection fraction, atrial fibrillation on digoxin and Eliquis who presents [facility] for management of rheumatoid arthritis Interval History: Patient last seen 08/24/2024 with me. At that time she was on methotrexate 10mg weekly and continued to have active rheumatoid arthritis. Her dose was increased to 15 mg per week. Despite the increase patient is here today complaining of continued widespread pain. Swelling to her hands, shoulders and unable to walk or wipe her butt Rheumatologic History: Patient diagnosed with seropositive rheumatoid arthritis several years ago. Was maintained on methotrexate however was lost to follow up since 2020. Previously taking methotrexate but that has since stopped. Sometimes intermittently has flares of her disease with swelling to her hands and her wrists but this would respond to [id number] Tylenol Arthritis. Has prolonged morning stiffness up to an hour. Her main complaints are her bilateral shoulders for which she recently got a steroid injection 1 month ago for. She also complains of knee pain worse at the end of the day impairs her ability to ascend stairs. Denies any shortness of breath, unexplained weight loss. 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 Current Rheumatology Medication(s): Methotrexate 15mg weekly Folic acid 1mg daily PFSH Medical History Polyarticular osteoarthritis Thyroid nodule greater than or equal to 1.5 cm in diameter incidentally noted on imaging study Thyroid nodule Helicobacter pylori gastritis Chronic cough On beta justine at home Nonischemic cardiomyopathy CHF (congestive heart failure) CAD (coronary artery disease) Thrombocytopenia Anemia Chronic GERD Elevated liver enzymes Seropositive rheumatoid arthritis Obesity (BMI 30-39.9) Vitamin D deficiency Dyslipidemia Hypertension 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 Mother No problems noted. Maternal Aunt Diabetes mellitus Social History Household Members: None Housing: Apartment Are you a primary home visit field care manager to a significant other at home: No Do you presently have visiting nurse or other home services: Yes (telephone) Alcohol intake: never Patient Tobacco Use Status: Never used Tobacco service: No Current occupational status: retired Current occupation: rt handed Review of Systems Const Details: Review of Systems Constitutional: Denies fever, chills, weight loss ENT: Denies vision changes, eye pain or eye redness, dental caries, dry mouth GI: Denies nausea, vomiting, diarrhea, abdominal pain, change in BM Pulm: Denies SOB, THOMPSON, hemoptysis, wheezing Cards: Denies chest pain, palpitations Skin: Denies Raynaud's, rash, nail changes, photosensitivity, PATTERN MARKER: Denies headaches, weakness, paresthesias, recurrent falls MSK: as per HPI All other systems reviewed and are unremarkable except noted above Physical Exam Physical Examination CONSTITUITIONAL Patient alert and cooperative. Well appearing and in no apparent painful distress HEENT Conjunctiva and sclera clear. ?Pupils equal round and reactive to light. ?No lymphadenopathy. ? CHEST/RESPIRATORY SYSTEM Normal respiratory effort and able to speak in complete sentences. ?Clear to auscultation bilaterally. ?No crackles, rales, rhonchi, wheezes heard. CARDIAC SYSTEM Regular rate and rhythm. ?S1 and S2 heard no murmurs. ?Radial pulses intact bilaterally MSK Hands: Unable to make a fist. Fingers swollen at the MCPs and PIPs as well as the dorsum of the hand. Wrists: ?Decreased range of motion. Swelling to bilateral wrists with tenderness to palpation Elbows: Full range of motion without pain. No tenderness, weakness, swelling, increased warmth or erythema. Shoulders: Decreased range of motion bilaterally secondary to pain tenderness to palpation of the glenohumeral joint posteriorly. Knees: ?Full range of motion. ?No tenderness, swelling, increased warmth or erythema.? Crepitations noted bilaterally Ankles: Full range of motion. ?No tenderness, swelling, increased warmth or erythema.? Feet: ?Positive squeeze test with tenderness to palpation of the MTPs SKIN Skin intact without rashes. Office Procedures AMB Joint Injection/Aspiration Joint Injection/Aspiration Details: Procedure was explained to the patient and consent was obtained. ? The area of interest was identified and confirmed with patient. ?This was subsequently cleaned with chlorhexidine x3. ? The area was then anesthetized using ethyl chloride spray. 40 mg Kenalog with 1 cc 1% lidocaine was injected without issue. ?Minimal to no bleeding. ?Patient tolerated procedure. Primary Site: right shoulder Prep: site was prepped using aseptic technique and ethochloride spray was applied Injected: 40 mg of, Kenalog, with 1 mL of, 1% plain lidocaine and in the joint Approach Used: other (Posterior) Procedure: The patient tolerated the procedure well Coding 84981 - Large joint Procedure code (CPT) selection complete AMB Joint Injection/Aspiration Joint Injection/Aspiration Details: Procedure was explained to the patient and consent was obtained. ? The area of interest was identified and confirmed with patient. ?This was subsequently cleaned with chlorhexidine x3. ? The area was then anesthetized using ethyl chloride spray. 40 mg Kenalog with 1 cc 1% lidocaine was injected without issue. ?Minimal to no bleeding. ?Patient tolerated procedure. Primary Site: left shoulder Prep: site was prepped using aseptic technique and ethochloride spray was applied Injected: 40 mg of, DepoMedrol, with 1 mL of and 1% plain lidocaine Procedure: The patient tolerated the procedure well Coding 35095 - Large joint Procedure code (CPT) selection complete Office Meds lidocaine (PF) 10 mg/mL (1 %) injection solution Performing Provider: Megan Trinidad MD Performing Location: [facility] [place] Rheumatology Administered by: Megan Trinidad MD on 09/06/24 09:32 Dose Route Admin Location Dispensed Lot Number Expiration Date ND Warehouse Attendant 1 mL Infiltration right shoulde 2 mL [id number] 09/04/26 86037-832-81 FRESENIUS KABI Kenalog 40 mg/mL suspension for injection Performing Provider: Megan Trinidad MD Performing Location: [facility] [place] Rheumatology Administered by: Megan Trinidad MD on 09/06/24 09:32 Dose Route Admin Location Dispensed Lot Number Expiration Date ND Warehouse Attendant 40 mg intra-articular right shoulder 1 mL [id number] 12/04/25 [address]-8 [employer] lidocaine (PF) 10 mg/mL (1 %) injection solution Performing Provider: Megan Trinidad MD Performing Location: [facility] [place] Rheumatology Administered by: Megan Trinidad MD on 09/06/24 09:32 Dose Route Admin Location Dispensed Lot Number Expiration Date ND Warehouse Attendant 1 mL Infiltration left shoulder 2 mL [id number] 09/04/26 00111-740-76 FRESENIUS KABI Kenalog 40 mg/mL suspension for injection Performing Provider: Megan Trinidad MD Performing Location: [facility] [place] Rheumatology Administered by: Megan Trinidad MD on 09/06/24 09:32 Dose Route Admin Location Dispensed Lot Number Expiration Date ND Warehouse Attendant 40 mg intra-articular left shoulder 1 mL [id number] 12/04/25 [address]-2 [employer] Results Reviewed Results Reviewed: Laboratory Tests 08/15/24 09/04/24 09:43 09:02 WBC 6.0 RBC 4.63 Hgb 11.1 L 10.8 L Hct 35.1 L Plt Count 126 L 158 L D ESR 34 H Sodium 141 Potassium 3.7 Chloride 110 H Carbon Dioxide 29 BUN 14 Creatinine 0.76 AST 26 ALT 15 Alkaline Phosphatase 118 H C-Reactive Protein 0.46 Total Protein 6.8 Albumin 3.0 L Immunology Labs 04/12/19 06/18/19 11:47 11:25 Rheumatoid Factor 55.0 H Cycl Citrul Peptide IgG >250 H DARREN Screen Positive H DARREN Titer 1:80 H Infectious serologies 09/04/24 09:02 Hepatitis A IgM Ab Nonreactive Hep Bs Antigen Negative Hep Bs Antibody REACTIVE Hep B Core Total Ab Nonreactive Hepatitis C Ab (EIA) Nonreactive TB Test (T-Spot) Com Pending Assessment & Plan Assessment & Plan (1) Seropositive rheumatoid arthritis: Code(s): M05.9 - Rheumatoid arthritis with rheumatoid factor, unspecified Category: Medical Plan: #Seropositive RA Patient is a 73-year-old female with seropositive rheumatoid arthritis here today for follow up. Rheumatoid arthritis is currently not under control and she is in continued flare of her disease. Despite adequate treatment with methotrexate 15 mg weekly she continues to have several swollen and tender joints. She has severe rheumatoid arthritis with limitations to her daily living. Her blood sugar is much better and she is currently on insulin at home. I will give her prednisone taper and add Enbrel to her regimen with methotrexate Plan - Methotrexate 15mg weekly PO - Folic acid 1mg daily - Start Enbrel 50mg weekly SC - Prednisone 20 mg for 10 days then 15 mg for 10 days then 10 mg for 10 days and 5 mg for 10 days then stop - RTC 3 months - Labs before visit: CBC, CMP, ESR, CRP (2) Polyarticular osteoarthritis: Code(s): M15.9 - Polyosteoarthritis, unspecified Category: Medical Plan: #Polyarticular OA Polyarticular OA involving shoulders and knees. Given that patient is on Eliquis would not recommend Celebrex. Has tried topical diclofenac in the past with out much relief. Has also tried physical therapy without much help. At this time limited in therapeutic that we can offer. Tried tramadol in the past which helped but she had stomach issues with it. She can continue receiving injections p.r.n.. 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 Limit alcohol and avoid Bactrim ? Monitoring: ?CBC, BMP, LFTs every 3-4 months and hepatitis serologies as needed (4) Encounter for monitoring of etanercept therapy: Code(s): Z51.81 - Encounter for therapeutic drug level monitoring; Z79.620 - correspondence clerk (current) use of immunosuppressive biologic Plan: #Long-term Use of TNF Inhibitors: Etanercept Discussed with the patient the benefits and risks of TNF inhibitors for the management of the rheumatic condition Benefits include reduce pain, maintenance of remission and reduction of flares as well as ?progression of the disease Risks include injection sites/infusion reactions, serious infections (such as bacterial infections, opportunistic infections), malignancy, delaminating syndromes, autoimmune phenomena, CHF exacerbations, palmar plantar psoriasis and cytopenias Recommended rotating injection sites, and holding medication during and for up to 1 week after resolution of a febrile illness or open skin wound Plan I spent 40 minutes reviewing the record and labs, seeing the patient, discussing the treatment plan and documenting in the medical record ? Orders: Orders Complete Blood Count Auto Diff 3 Months M05.9 - Rheumatoid arthritis with rheumatoid factor, unspecified Comprehensive Met. Panel 3 Months M05.9 - Rheumatoid arthritis with rheumatoid factor, unspecified C Reactive Protein 3 Months M05.9 - Rheumatoid arthritis with rheumatoid factor, unspecified Erythrocyte Sedimentation Rate 3 Months M05.9 - Rheumatoid arthritis with rheumatoid factor, unspecified AMB Joint Injection/Aspiration Today M06.9 - Rheumatoid arthritis, unspecified AMB Joint Injection/Aspiration Today M06.9 - Rheumatoid arthritis, unspecified Medications: New 2 Kenalog (triamcinolone acetonide) 40 mg intra-articular ONCE 1 mL 0RF NS M06.9 - Rheumatoid arthritis, unspecified lidocaine (PF) 1 mL Infiltration ONCE 2 mL 0RF M06.9 - Rheumatoid arthritis, unspecified etanercept (Enbrel SureClick) 50 mg subcut QWEEK 4 mL 4RF M05.9 - Rheumatoid arthritis with rheumatoid factor, unspecified prednisone Take 4 tablets daily for 10 days then 3 tablets daily for 10 days then 2 tablets daily for 10 days then 1 tablet daily for 10 days then stop 5 mg PO DIRECTED 100 tabs 0RF M06.9 - Rheumatoid arthritis, unspecified lidocaine (PF) 1 mL Infiltration ONCE 2 mL 0RF M06.9 - Rheumatoid arthritis, unspecified Kenalog (triamcinolone acetonide) 40 mg intra-articular ONCE 1 mL 0RF NS M06.9 - Rheumatoid arthritis, unspecified Refilled methotrexate sodium 15 mg (6 x 2.5 mg) PO QWEEK 90 days 78 tabs 1RF M05.9 - Rheumatoid arthritis with rheumatoid factor, unspecified folic acid 1 mg PO DAILY 90 tabs 1RF M05.9 - Rheumatoid arthritis with rheumatoid factor, unspecified Coding Level of Care Code Est Pt Level 5 (93992) Complex EM visit Add On G2211 Diagnoses Seropositive rheumatoid arthritis M05.9 Polyarticular osteoarthritis M15.9 custodial methotrexate user Z79.899 Encounter for monitoring of etanercept therapy Z51.81; Z79.620 CPT Codes Coding - 49896 Large joint: 71359 - Large joint ([id number]) Coding - 18015 Large joint: 46281 - Large joint ([id number])
--- OUTSIDE RECORDS SUMMARY | 2024-09-06 08:47 | XMS_ITS | Clinical Summary ---
Author Organization [address] [facility] Address [address] [place] [address] Phone Care Team Providers Care Bristle Machine Operator Name Role Phone Kelle Aldanafer Ej [place] Primary Care Provider [phone] Allergies No known active allergies Medications metFORMIN [...] Orthopedic Surgery [facility] [address] [phone] Kota De La Torre DPM Primary osteoarthritis [...] 11:00 AM EDT Consult Vascular Surgery - [place] [address] [place] [phone] Tiffanie Holbrook MD [address] [place] [address] 10/01/2024 9:00 AM EDT Office Visit Orthopedic Surgery [facility] [address] [phone] Kota De La Torre DPM [address] [address] Health Maintenance Due Date Last Done Comments Diabetes: Annual Foot Exam 1960 Diabetes: Annual Retina Eye Exam 1960 COVID-19 Vaccine (3 - Pfizer risk series) 08/11/2021 07/14/2021, 06/23/2021 RSV Immunization Adult Patients (1 - 1-dose 75+ series) 11/24/2023 Colorectal [...] complete this topic Insurance MEDICAID - [facility] Member Subscriber Plan / Payer (Ef fective 2014-Present) Name:Candi Sanchez Relation to Subscriber:Self Name:Candi Sanchez Payer ID:[id number] Group ID:[id number] Type:Not on file Address: [address] [place] [phone] Care Teams Bristle Machine Operator Relationship Specialty Start Date End Date Gavi Aldana DO [address] [place] [address] PCP - General Internal Medicine 10/27/11
[2024-09-06 08:48] VITALS: BP 142/80; PULSE 98; O2SAT 97; BMI 23.7
== END 2024-09-06 09:35 | disposition home or self-care (01) ==
LOC: HO.RHE 08:38
PROVIDERS: PCP Family Medicine; Visit Provider Student in an Organized Health Care Education/Training Program
DX: M05.79 Rheumatoid arthritis with rheumatoid factor of multiple sites without organ or systems involvement (principal); M15.9 Polyosteoarthritis, unspecified; Z79.899 Other long term (current) drug therapy; Z51.81 Encounter for therapeutic drug level monitoring; Z79.620 Long term (current) use of immunosuppressive biologic; M06.9 Rheumatoid arthritis, unspecified
CPT/HCPCS: 20610; 99215

== ENCOUNTER → 2024-09-06 08:37 | Outpatient (BNVA) | payer OTHER, SELFPAY | PROVIDERS: PCP Family Medicine; Visit Provider Student in an Organized Health Care Education/Training Program | DX: M25.512 Pain in left shoulder (principal); M25.511 Pain in right shoulder; M05.9 Rheumatoid arthritis with rheumatoid factor, unspecified; M15.9 Polyosteoarthritis, unspecified; I10 Essential (primary) hypertension; Z51.81 Encounter for therapeutic drug level monitoring; Z79.620 Long term (current) use of immunosuppressive biologic; Z79.01 Long term (current) use of anticoagulants; Z79.899 Other long term (current) drug therapy | CPT/HCPCS: 20610; 99212; J3300 ==

== ENCOUNTER 2024-09-18 08:33 | Outpatient (AMB) | payer OTHER, SELFPAY ==
--- NOTE | 2024-09-18 08:50 | MHC.AMDMED ---
Intake Intake Visit Reasons: T2DM Farebox Repairer Required: Yes Farebox Repairer Language: Croatian Accompanied by: Other Relationship Allergies No Known Allergies Allergy (Verified 09/06/24 08:47) HPI Comprehensive Diabetes Asmnt Most Recent Diabetes Results: Creatinine 0.76 mg/dL (0.5-1.4) 09/04/24 Blood Urea Nitrogen 14 mg/dL (9-16) 09/04/24 Sodium 141 mmol/L (135-145) 09/04/24 Potassium 3.7 mmol/L (3.3-5.1) 09/04/24 Chloride 110 mmol/L (96-108) H 09/04/24 Carbon Dioxide 29 mmol/L (22-29) 09/04/24 Calcium 9.3 mg/dL (8.4-10.2) 09/04/24 AST 26 U/L (5-31) 09/04/24 ALT 15 U/L (0-31) 09/04/24 Total Protein 6.8 g/dL (6.5-8.0) 09/04/24 Albumin 3.0 g/dL (3.5-5.0) L 09/04/24 [facility] Medical History Polyarticular osteoarthritis Thyroid nodule greater than or equal to 1.5 cm in diameter incidentally noted on imaging study Thyroid nodule Helicobacter pylori gastritis Chronic cough On beta justine at home Nonischemic cardiomyopathy CHF (congestive heart failure) CAD (coronary artery disease) Thrombocytopenia Anemia Chronic GERD Elevated liver enzymes Seropositive rheumatoid arthritis Obesity (BMI 30-39.9) Vitamin D deficiency Dyslipidemia Hypertension 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 Mother No problems noted. Maternal Aunt Diabetes mellitus Social History Household Members: None Housing: Apartment Are you a primary career discovery teacher to a significant other at home: No Do you presently have visiting nurse or other home services: Yes (telephone) Alcohol intake: never Patient Tobacco Use Status: Never used Tobacco service: No Current occupational status: retired Current occupation: rt handed Assessment & Plan Assessment & Plan (1) Diabetes type 1, uncontrolled: Code(s): E10.65 - Type 1 diabetes mellitus with hyperglycemia Plan: Personal Continuous Glucose Monitor: Patients CGM information reviewed, Pt uses Dexcom G7 Sensor data: Patient glucose running well above target due to having multiple prednisone injections on 09/06/2024 for shoulder pain. Spoke to Dr. Montes regarding adjustment to insulin after steroid injections. Plan Per Dr. Montes: Take tresiba 30 units daily If glucose drops below 75 mg/dL take tresiba 26 units Reviewed with patient how to treat hypoglycemia with rule of 15s, patient reports she has both glucose tabs and orange juice at home Patient agreed to plan make appt with MARKETING WRITER for 1 week Patient able to insert sensor independently at home without issue.? Portions of this note were created using voice recognition software, please excuse any words or phrases that may have been misinterpreted. Patient Instructions: [place] 30 unidades de Tresiba al d?a. Si la glucosa baja a menos de 75 mg/dl, tome 26 unidades de Tresiba. Concierte mukesh nasir con el enfermero practicante dinaa mukesh semana. Coding Level of Care Code Est Pt Level 1 (03560) Diagnoses Diabetes type 1, uncontrolled E10.65
--- OUTSIDE RECORDS SUMMARY | 2024-09-18 08:52 | XMS_ITS | Encounter Summary ---
Author Organization [employer] [facility] Address [address] [place] [address] [address] [place] [address] Care Team Providers Care Fumigator And Sterilizer Name Role Phone Gavi Aldana DO Primary Care Provider + [phone] Encounter Details Date Type Department Care Team (Latest Contact Info) Description 03/10/2022 Abstract [facility] CONVERSIONS Dental, Provider, DDS Social History [...] Description 10/12/2024 9:00 AM EDT Office Visit [facility] ADULT DENTAL [address] [place] [address] José Miguel Sy DDS [address] [place] [address] documented as of this encounter Visit Diagnoses Not on filedocumented in this encounter Care Teams Fumigator And Sterilizer Relationship Specialty Start Date End Date Gavi Aldana DO [address] [place] [address] PCP - General Family Medicine 06/06/18 documented as of this encounter
--- OUTSIDE RECORDS SUMMARY | 2024-09-18 08:52 | XMS_ITS | Encounter Summary ---
Author Organization [employer] [facility] Address [address] [facility] [address] [place] [address] Care Team Providers Care Scabbler Name Role Phone Gavi Aldana DO Primary Care Provider + [phone] Encounter Details Date Type Department Care Team (Latest Contact Info) Description 09/25/2018 Abstract [facility] CONVERSIONS Dental, Provider, DDS Social History Tobacco [...] Description 10/12/2024 9:00 AM EDT Office Visit [facility] ADULT DENTAL [address] [place] [address] José Miguel Sy DDS [address] [place] [address] documented as of this encounter Visit Diagnoses Not on filedocumented in this encounter Care Teams Scabbler Relationship Specialty Start Date End Date Gavi Aldana DO [address] [place] [address] PCP - General Family Medicine 06/06/18 documented as of this encounter
--- OUTSIDE RECORDS SUMMARY | 2024-09-18 08:53 | XMS_ITS | Encounter Summary ---
Author Organization [employer] [facility] Address [address] [facility] [address] [place] [address] Care Team Providers Care Regulatory Compliance Coordinator Name Role Phone Gavi Aldana DO Primary Care Provider + [phone] Encounter Details Date Type Department Care Team (Late st Contact Info) Description 07/22/2022 Orders Only [facility] CHC MED & PEDS [address] [place] [address] Gavi Duarte LPN Social History Tobacco Use [...] Description 10/12/2024 9:00 AM EDT Office Visit [facility] ADULT DENTAL [address] [place] [address] José Miguel Sy DDS [address] [place] [address] documented as of this encounter Visit Diagnoses Not on filedocumented in this encounter Care Teams Regulatory Compliance Coordinator Relationship Specialty Start Date End Date Gavi Aldana DO [address] [place] [address] PCP - General Family Medicine 06/06/18 documented as of this encounter
--- OUTSIDE RECORDS SUMMARY | 2024-09-18 08:53 | XMS_ITS | Data Portability ---
Author Organization [employer] [employer] Address [address] [place] [address] Assessment Encounter Date Assessment Date Assessment LastModified by Organization Details LastModified Time 03/17/2023 03/17/2023 As noted, we were called to see this patient regarding concerns of cough. Evaluation in the field was performed by my grinder set up operator thread colleague, as noted above, I provided real-time [...] SNOMED-CT Code Diagnosis ICD10 Code Diagnosis Note [id number] Amparo Marley MD Main - [address] [address] 03/17/2023 19:40:50 03/17/2023 19:55:52 Health Concerns Section Related Observation LastModified by Organization [employer] LastModified Time None Recorded Concern Status LastModified by Organization Details LastModified Time None Recorded Advance Directives Directive None Recorded Payers Encounter Date Sequence Insurance Name Policy Number Policy Ivy Covered Member ID Ivy Member ID Guarantor Name 03/17/2023 1 [facility] - DOS ON OR AFTER 2022 - DUAL ELIGIBLE - CARE HOME OPTIONS AND ONE CARE (MEDICARE REPLACEMENT/ADV ANTAGE - HMO) Candi Sanchez [id number] Candi Sanchez Notes Date Note Type Note [...] CRC RN DID NOT NEED FURTHER INFO [facility] HPI: 3 weeks, sore throat throughout, cough throughout. dry cough. has never had something like this before. some sour taste, depending on what she ate. no abdominal, a little epigastric burning. Saw provider, got tessalon perles, initially helpful but then. 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 Amparo Marley MD [address] [facility],[address], [place], [address], [facility] 03/17/2023 19:55:51 OBGyn Episode No OBEpisode recorded.
--- OUTSIDE RECORDS SUMMARY | 2024-09-18 08:53 | XMS_ITS | Encounter Summary ---
Author Organization [facility] [facility] Address [address] [facility] [address] [place] [address] Care Team Providers Care Contemporary Or Modern Dancer Name Role Phone Gavi Aldana DO Primary Care Provider + [phone] Encounter Details Date Type Department Care Team (Late st Contact Info) Description 12/14/2022 Orders Only [facility] CHC MED & PEDS [address] [place] [address] Gavi Duarte LPN Social History Tobacco Use [...] Description 10/12/2024 9:00 AM EDT Office Visit [facility] ADULT DENTAL [address] [place] [address] José Miguel Sy DDS [address] [place] [address] documented as of this encounter Visit Diagnoses Not on filedocumented in this encounter Care Teams Contemporary Or Modern Dancer Relationship Specialty Start Date End Date Gavi Aldana DO [address] [place] [address] PCP - General Family Medicine 06/06/18 documented as of this encounter
--- OUTSIDE RECORDS SUMMARY | 2024-09-18 08:53 | XMS_ITS | Encounter Summary ---
Author Organization [employer] [facility] Address [address] [place] [address] [address] [place] [address] Care Team Providers Care Mechanical Expert Name Role Phone Gavi Aldana DO Primary Care Provider + [phone] Reason for Visit * Reason Comments Med Refill Encounter Details Date Type Department Care Team ([facility] Contact Info) Description 10/11/2022 Refill [facility] [address] [place] [address] Gavi Aldana DO [address] [place] [address] Other chronic pain Social History Tobacco Use [...] Description 10/12/2024 9:00 AM EDT Office Visit [facility] ADULT DENTAL [address] [place] [address] José Miguel Sy DDS [address] [place] [address] documented as of this encounter Visit Diagnoses Diagnosis Other chronic pain documented in this encounter Care Teams Mechanical Expert Relationship Specialty Start Date End Date Gavi Aldana DO [address] [place] [address] PCP - General Family Medicine 06/06/18 documented as of this encounter
--- OUTSIDE RECORDS SUMMARY | 2024-09-18 08:53 | XMS_ITS | Clinical Summary ---
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 12/31/19 23 Active digoxin (Lanoxin) 125 MCG tablet Take 125 mcg by mouth in the morning. 10/12/19 23 Active FeroSul 325 (65 Fe) MG tablet Take 1 tablet by mouth in the morning. 12/15/19 23 Active furosemide (Lasix) 20 MG tablet 01/05/20 23 Active FREESTYLE LITE test strip TEST BLOOD SUGAR FOUR TIMES DAILY 12/31/19 23 Active NovoLOG FLEXPEN 100 UNIT/ML pen INJECT [...] capsule 1 01/22/20 Active UltiCare Short Pen [place] 31G X 8 MM misc USE DIRECTED [...] IN THE EVENING 60 g 2 06/29/19 24 Active cholecalcifero l (Vitamin D-3) 50 MCG (1999) capsule Take 1 capsule (50 mcg) by mouth Once per day. 30 capsule 11 10/04/19 Active melatonin 5 MG tablet TAKE 1 [...] SUGAR 30 tablet 5 06/01/20 24 Active lidocaine (Lidoderm) 5 % patchIndicatio ns:Acute pain of right shoulder Apply 1 patch topically Once per day. Remove & discard patch after 12 hours. 30 patch 08/16/19 25 Active baclofen (Lioresal) 10 MG tabletIndicati ons:Acute pain of right shoulder Take one tablet TID PRN 42 tablet 08/16/19 25 Active ibuprofen 600 MG tabletIndicati ons:Acute pain of right shoulder Take 1 tablet (600 mg) by mouth 3 times daily for 14 days. 42 tablet 08/16/19 25 025 Active Problems Problem Noted Date [...] reports she was exposed to Covid-19 at [facility] but she always wears a mask Physical exam wnl Rapid strep, Covid and Flu negative Plan: supportive measures, recommended Tylenol prn, pt to test at home if symptoms do not improve or worsen and notify us if positive or worsening of symptoms Pt verbalized understanding Encounters Date Type Department Care Team Description 09/10/2024 Telephone [facility] MEDICINE [address] [place] [phone] Gavi Aldana DO Durable Medical Equipment (DME Script Recliner Chair) 09/04/2024 Orders Only GENERIC EXTERNAL DATA DEPARTMENT Provider, Generic External Data 08/29/[address] [address] Gavi Aldana DO Prior Auth Prescription 08/28/2024 9:00 AM EDT Office Visit [facility] ADULT DENTAL [address] [place] [phone] José Miguel Sy DDS Dental caries (Primary Dx) 08/28/2024 Orders Only [address] [address] Gavi Aldana DO Microscopic hematuria (Primary Dx) 08/24/[address] [address] Gavi Aldana DO Results 08/24/[address] [address] Gavi Aldana DO Durable Medical Equipment 08/23/2024 Orders Only [facility] External Provider, [facility] 08/15/2024 8:40 AM EDT Office Visit [facility] WALK-IN CENTER [address] [place] [address] Veena White NP Acute pain of right shoulder (Primary Dx); Hand swelling 07/17/2024 Orders Only GENERIC EXTERNAL DATA DEPARTMENT Provider, Generic External Data 07/11/2024 8:00 AM EST Office Visit [facility] ADULT DENTAL [address] [facility] [place] [address] José Miguel Sy DDS Dental caries into pulp (Primary Dx) 07/04/2024 9:00 AM EST Office Visit [facility] ADULT DENTAL [address] [facility] [address] Laura Dow Dental caries into pulp (Primary Dx); Dental calculus; Localized gingival recession; Dental caries; Missing teeth, acquired; Chronic dental pain from Last 3 Months Immunizations Name Administration [...] Description 10/12/2024 9:00 AM EDT Office Visit [facility] ADULT DENTAL [address] [place] [address] José Miguel Sy, [place] [address] [place], [place] [phone] Health Maintenance Due Date Last Done Comments [...] Additional history exists Hepatitis C Screening Completed 09/04/2024 , 05/09/2024, 06/18/2019 HIB Vaccines Aged Out No longer eligi [...] Procedure Name Priority Date/Time Associated Diagnosis Comments T-SPOT(R).TB Routine 09/04/2024 9:02 AM EDT HEPATITIS PANEL, GENERAL Routine 09/04/2024 9:02 AM EDT T4, FREE Routine 09/04/2024 9:02 AM EDT TSH Routine 09/04/2024 9:02 AM EDT SED RATE BY MODIFIED WESTERGREN Routine 09/04/2024 9:02 AM EDT C-REACTIVE PROTEIN Routine 09/04/2024 9: 02 AM EDT COMPREHENSIVE METABOLIC PANEL Routine 09/04/2024 9:02 AM EDT CBC WITH AUTO DIFFERENTIAL Routine 09/04/2024 9:02 AM EDT BASIC METABOLIC PANEL Routine 08/28/2024 10:10 AM [...] FILLING Routine 07/04/2024 1 2:00 AM EST LIPID PANEL, STANDARD Routine 09/20/2023 7:27 AM EDT Type 2 diabetes mellitus without complication, with long-term current use of insulin ([facility]) ALBUMIN, RANDOM URINE W/CREATININE Routine 09/20/2023 7:23 AM EDT Type 2 diabetes mellitus without complication, with long-term current use of insulin ([facility]) PROPHYLAXIS - ADULT Routine 03/10/2022 1 2:00 AM EDT INTRAORAL - COMPLETE SERIES OF RADIOGRAPHIC IMAGES Routine 03/10/2022 12:00 AM EDT HM COLONOSCOPY Routine 07/28/2021 2:52 PM EST from Last 3 Months or Most Recently Relevant to Health Maintenance Results * T-SPOT??.TB (09/04/2024 9:02 AM EDT) [facility] T Spot TB Negative Negative [facility] Comment:A negative test resu lt does not exclude the possibilityof exposure to or infection with Mycobacteriumtuberculosis (M. tuberculosis). Patients with recentexposure to TB infected individuals exhibiting anegative T-SPOT.TB result should be considered forretesting within 6 weeks or if other relevant clinicalsymptoms indicate. Results from T-SPOT.TB testing mustbe used in conjunction with each individual'sepidemiological history, current medical status,and results of other diagnostic evaluations.The T-SPOT.TB test is qualitative and results arereported as positive, borderline, or negative, giventhat the test controls perform as expected. In linewith the Centers for Disease Control and Prevention's2010 recommendation to report quantitative measurementsalongside the qualitative result, the laboratoryprovides spot counts for informational purposes only.The T-SPOT.TB test should not be interpreted as aquantitative test. TS PANEL A 0 [facility] TS PANEL B 0 [facility] Negative Control Passed [facility] Positive Control Passed [facility] Comment:For additional infor jared, please refer tohttp://education.[employer]/faq/ZBI681(This link is being provided for informational/educational purposes only.)THIS TEST WAS PERFORMED AT:[employer]/[id number] [place] [id number] CANTU MD,PHD 09/04/2024 9:02 AM EDT 09/04/2024 9:02 AM EDT Generic External Data Provider LAB BLOOD ORDERAB LES Final Result Performing Organization Address [facility] Co de Phone Number [facility] [address] [place] [phone] * Hepatitis Panel, General (09/04/2024 9:02 AM EDT) Pathologist [facility] Hepatitis A IgM Nonreactive Nonreactive [facility] Comment:IgM antibodies to CMCANN V not detected; does not exclude earlyacute or recovered HAV infection. ~Hepatitis B Surface Antibody REACTIVE Nonreactive [facility] Comment:REACTIVE: > 11.99 mI U/mL Hepatitis B Core Antibody Nonreactive Nonreactive [facility] Hepatitis C Antibody Nonreactive Nonreactive [facility] Comment:Antibodies to HCV no t detected; does not exclude early acuteHCV infection. Hepatitis B Surface Ag Negative Negative [facility] 09/04/2024 9:02 AM EDT 09/04/2024 9:02 AM EDT Generic External Data Provider LAB BLOOD ORDERAB LES Final Result Performing Organization Address [facility] Co de Phone Number [facility] [address] [place] [phone] * (ABNORMAL) CBC auto differential (09/04/2024 9:02 AM EDT) Pathologist [facility] White Blood Count 6.0 4.8 - 10.8 X10*3/uL [facility] Red Blood Count 4.63 4.20 - 5.50 X10*6/uL [facility] Hemoglobin 10.8(L) 12.0 - 16.0 g/dl [facility] Hematocrit 35.1(L) 37.0 - 47.0 % [facility] Mean Corpuscular Volume 75.8(L) 80.0 - 98.0 fL [facility] Mean Corpuscular Hemoglobin 23.3(L) 27.0 - 33.0 pg [facility] Mean Corpuscular HGB Conc 30.8(L) 31.0 - 35.0 g/dl [facility] Red Cell Distribution Width 13.8 11.0 - 16.0 % [facility] Platelet Count 158(L) 160 - 400 X10*3/uL [facility] Mean Platelet Volume 13.0(H) 9.4 - 12.3 fL [facility] Neutrophils Percent Auto 69.9 45 - 73 % [facility] Imm Gran Pct Auto 0.7(H) 0.0 - 0.4 % [facility] Lymphocytes Percent Auto 16.4(L) 20 - 40 % [facility] Monocytes Percent Auto 8.5 2 - 11 % [facility] Eosinophils Percent Auto 3.8 0 - 4 % [facility] Basophils Percent Auto 0.7 0 - 2 % [facility] NRBC Pct Auto 0.0 0.0 - 0.2 /100WBC [facility] Neutrophils Absolute Auto 4.2 2.0 - 8.3 x10*3/uL [facility] Imm Gran Abs Auto 0.04(H) 0.00 - 0.03 X10*3/uL [facility] Lymphocytes Absolute Auto 1.0(L) 1.2 - 4.9 X10*3/uL [facility] Monocytes Absolute Auto 0.5 0.1 - 1.2 X10*3/uL [facility] Eosinophils Absolute Auto 0.2 0.0 - 0.4 X10*3/uL [facility] Basophils Absolute Auto 0.0 0.0 - 0.2 X10*3/uL [facility] NRBC Abs Auto 0.000 0.0 - 0.012 X10*3/uL [facility] 09/04/2024 9:02 AM EDT 09/04/2024 9:02 AM EDT us Generic External Data Provider LAB BLOOD ORDERAB LES Final Result Performing Organization Address [facility]/ZIP Co de Phone Number [facility] [address] [place] [phone] * (ABNORMAL) Sed Rate by Modified Westergren (09/04/2024 9:02 AM EDT) Erythrocyte Sedimentation Rate 34(H) 0 - 20 MM/HR [facility] Comment:Patients with polycy themia and many hemoglobin abnormalitiesmay have depressed sed rates whereas patients with anemiamay have elevated sed rates. 09/04/2024 9:02 AM EDT 09/04/2024 9:02 AM EDT Generic External Data Provider LAB BLOOD ORDERAB LES Final Result Performing Organization Address [facility]/ZIP Co de Phone Number [facility] [address] [place] [phone] * C-reactive Protein (09/04/2024 9:02 AM EDT) C Reactive Protein 0.46 < or = 0.50 mg/dL [facility] 09/04/2024 9:02 AM EDT 09/04/2024 9:02 AM EDT Generic External Data Provider LAB BLOOD ORDERAB LES Final Result Performing Organization Address [facility] Co de Phone Number [facility] [address] [place] [phone] * TSH (09/04/2024 9:02 AM EDT) Thyroid Stimulating Hormone 1.41 0.32 - 4.0 uIU/mL [facility] Comment:TSH 3rd Generation ( [facility]) 09/04/2024 9:02 AM EDT 09/04/2024 9:02 AM EDT us Generic External Data Provider LAB BLOOD ORDERAB LES Final Result Performing Organization Address City/[facility]/ZIP Co de Phone Number [facility] [address] [place] [phone] * T4, Free (09/04/2024 9:02 AM EDT) Free T4 (Free Thyroxine) 1.31 0.71 - 1.85 ng/dL [facility] 09/04/2024 9:02 AM EDT 09/04/2024 9:02 AM EDT us Generic External Data Provider LAB BLOOD ORDERAB LES Final Result Performing Organization Address [facility] Co de Phone Number [facility] [address] [place] [phone] * (ABNORMAL) Comprehensive Metabolic Panel (09/04/2024 9:02 AM EDT) Pathologist [facility] Sodium 141 135 - 145 mmol/L [facility] Potassium 3.7 3.3 - 5.1 mmol/L [facility] Chloride 110(H) 96 - 108 mmol/L [facility] Carbon Dioxide 29 22 - 29 mmol/L [facility] Anion Gap 6(L) 12 - 20 [facility] Urea Nitrogen (BUN) 14 9 - 16 mg/dL [facility] Creatinine, Serum 0.76 0.5 - 1.4 mg/dL [facility] Estimated Glomerular Filt Rate >60 [facility] Comment:Chronic Kidney Disea se: Estimated GFR < 60 mL/min/1.68i1Lqmqjq Kidney Disease: Estimated GFR < 15 mL/min/1.73m2 Glucose 166(H) 60 - 115 mg/dL [facility] Calcium 9.3 8.4 - 10.2 mg/dL [facility] Bilirubin, Total 0.3 0.0 - 1.0 mg/dL [facility] Aspartate Amino Transferase 26 5 - 31 U/L [facility] Alanine Aminotransferase 15 0 - 31 U/L [facility] Total Protein 6.8 6.5 - 8.0 g/dL [facility] Albumin Level 3.0(L) 3.5 - 5.0 g/dL [facility] Alkaline Phosphatase 118(H) 39 - 117 U/L [facility] 09/04/2024 9:02 AM EDT 09/04/2024 9:02 AM EDT us Generic External Data Provider LAB BLOOD ORDERAB LES Final Result [facility] [address] [place] [phone] * (ABNORMAL) Basic Metabolic Panel (08/28/2024 10:10 AM EDT) Sodium 139 135 - 145 mmol/L [facility] Potassium 3.9 3.3 - 5.1 mmol/L [facility] Chloride 106 96 - 108 mmol/L [facility] Carbon Dioxide 28 22 - 29 mmol/L [facility] Anion Gap 9(L) 12 - 20 [facility] Urea Nitrogen (BUN) 17(H) 9 - 16 mg/dL [facility] Creatinine, Serum 0.78 0.5 - 1.4 mg/dL [facility] Estimated Glomerular Filt Rate >60 [facility] Comment:Chronic Kidney Disea se: Estimated GFR < 60 mL/min/1.93w5Acfsje Kidney Disease: Estimated GFR < 15 mL/min/1.73m2 Glucose 298(H) 60 - 115 mg/dL [facility] Calcium 8.9 8.4 - 10.2 mg/dL [facility] Blood Venous blood specimen / Unknown 08/28/2024 10:10 AM EDT 08/28/2024 11:12 AM EDT us Gavi Jurcsak DO LAB BLOOD ORDERABLES Final R esult [facility] [address] [place] [phone] * Cytopath-cell enhanced (08/28/2024 10:09 AM EDT) 08/28/2024 10:0 9 AM EDT 08/29/2024 6:10 AM EDT Narrative [facility] - 08/31/2024 11:09 AM EDT ----- ------- Name: Candi Solomon ? Age/Sex: 73/F ? : 1950 Unit#: [id number] ?? Attend Dr: Gavi Aldana DO ?Re08/28/24 ?Status: DEP REF ? Location: HO[facility] ? Disch: ? ----- ------- SPEC : [id number] ? RECD: 08/29/24-609 ? STATUS: ??SOUT ? REQ NUM: [id number] ? MILAN: 08/28/24-1009 ? SUBM DR: Gavi Aldana DO ? ENTERED: ??08/29/24-645 ?SP TYPE: Cytology ? OTHR DR: ? ORDERED: ??Cyto-enhanced ? Diagnosis ?? Urine, [...] (signature on file) Arlin Ogden MD 08/31/24 7022 ? ----- ------- ? END OF REPORT ? us Gavi Aldana DO LAB CYTOLOGY ORDERABLES Karina mara Result [facility] [address] [place] [phone] [phone] * Thyroid (08/23/2024 9:44 AM EDT) Anatomical Region Laterality Modality Head, Neck Ultrasound 08/23/2024 9:44 AM EDT Narrative 08/23/2024 3:29 PM EDT ? [facility] ?[address] ?[place] [address] ? Ultrasound Report ? Signed ? Patient: Candi Solomon ?MR#: ?? [id number] ? : 1950 ?Acct:[id number] ? Age/Sex: 73 / F ?ADM Date: 08/23/24 ? Loc: HO.US ? Attending Dr: Shruthi Cui MD ? Ordering Physician: Shruthi Cui MD ?? Date of Service: 08/23/24 ?? Procedure(s): US thyroid ?? Accession Number(s): [id number] ? cc: Gavi Aldana DO; Shruthi Cui [...] or equal to 1 cm: 4. ?? Asset Protection Associate nodules are described as follows: ? 1. [...] DD/ 0944 ? TD/TT: 08/23/24 0955 ? Cataract Lens Generator: MSM ? Procedure Note Rekha, Image - 08/23/2024 [place] [address] Ultrasound Report Signed Patient: Candi Solomon EMR#: [id number] : 9Acct:[id number] Age/Sex: 73 / FADM Date: 08/23/24 Loc: HO.US Attending Dr: Shruthi Cui MD Ordering Physician: Shruthi Cui MD Date of Service: 08/23/24 Procedure(s): US thyroid Accession Number(s): [id number] cc: Gavi Aldana DO; Shruthi Cui MD [...] than or equal to 1 cm: 4. Asset Protection Associate nodules are described as follows: 1. Location: [...] 08/23/24 1525 DD/ 0944 TD/TT: 08/23/24 0955 Cataract Lens Generator: LULY us [facility] External Provider IMG US PROCEDURES Final Result * CT Chest w/o Contrast (08/17/2024 9:18 AM EDT) Anatomical Region Laterality Modality Body, Chest Computed Tomogra phy 08/17/2024 9:18 AM EDT Narrative 08/17/2024 9:19 AM EDT ? [facility] ?[address] ?[place] [address] ? CT Scan Report ? Signed ? Patient: Sanchez Mueller,[place] ?MR#: ?? [id number] ? : 1950 ?Acct:[id number] ? Age/Sex: 73 / F ?ADM Date: 08/16/24 ? Loc: HO.CT ? Attending Dr: Gavi Aldana DO ? Ordering Physician: Gavi Aldana DO ?? Date of Service: 08/16/24 ?? Procedure(s): CT chest wo IV con ?? Accession Number(s): [id number] ? cc: Gavi Aldana DO ? Report Number: ?? [id number]: Total DLP = ??117.00 mGy-cm ? CLINICAL [...] ? DD/ 7 ? TD/TT: 08/17/24917 ? Cataract Lens Generator: ? Procedure Note Donotuseinterpreter, Image - 08/17/[address] [address] [address] Scan Report Signed Patient: Candi Solomon EMR#: [id number] : 9Acct:[id number] Age/Sex: 73 / FADM Date: 08/16/24 Loc: HO.CT Attending Dr: Gavi Aldana DO Ordering Physician: Gavi Aldana DO Date of Service: 08/16/24 Procedure(s): CT chest wo IV con Accession Number(s): [id number] cc: Gavi Aldana DO Report Number: [id number]: Total DLP = 117.00 mGy-cm CLINICAL HISTORY: [...] in OV> 08/17/24918 DD/ 7 TD/TT: 08/17/24917 Cataract Lens Generator: Gavi Jurcsak DO IMG CT PROCEDURES Final Resu lt * CT Head w/o Contrast (08/17/2024 9:09 AM EDT) Anatomical Region Laterality Modality Head, Neck Computed Tomogra phy 08/17/2024 9:09 AM EDT Narrative 08/17/2024 9:11 AM EDT ? [facility] ?[address] ?[place] [address] ? CT Scan Report ? Signed ? Patient: Sanchez Mueller,[place] ?MR#: ?? [id number] ? : 1950 ?Acct:[id number] ? Age/Sex: 73 / F ?ADM Date: 08/16/24 ? Loc: HO.CT ? Attending Dr: Gavi Aldana DO ? Ordering Physician: Gavi Aldana DO ?? Date of Service: 08/16/24 ?? Procedure(s): CT head/brain wo IV con ?? Accession Number(s): [id number] ? cc: Gavi Aldana DO ? Report Number: ?? [id number]: Total DLP = ??715.00 mGy-cm ? CLINICAL [...] 08/17/24 0910 ? DD/ 0909 ? TD/TT: 08/17/24 0909 ? Cataract Lens Generator: ? Procedure Note Jose Da Silva - 08/17/[address] [place] [address] [address] Scan Report Signed Patient: Candi Solomon EMR#: [id number] : 9Acct:[id number] Age/Sex: 73 / FADM Date: 08/16/24 Loc: HO.CT Attending Dr: Gavi Aldana DO Ordering Physician: Gavi Aldana DO Date of Service: 08/16/24 Procedure(s): CT head/brain wo IV con Accession Number(s): [id number] cc: Gavi Aldana DO Report Number: [id number]: Total DLP = 715.00 mGy-cm CLINICAL HISTORY: [...] signed by Baldev Yousif MD in OV> 08/17/24 0910 DD/ 09 TD/TT: 08/17/24 09 Cataract Lens Generator: Gavi Aldana DO IMG CT PROCEDURES Final Resu lt * Vitamin B12 (Cobalamin) and Folate Panel, Serum (08/15/2024 9:43 AM EDT) Vitamin B12 726 200 - 900 pg/mL [facility] Comment:NORMAL 200-900 PG/ML INDETERMINATE 160-199 PG/ML DEFICIENT < 160 PG/ML Folate 10.0 > or = 4.0 ng/mL [facility] Comment:Reference Values:> o r = 4.0 ng/mL< 4.0 ng/mL suggests folate deficiency Methotrexate, aminopterin and folinic acid(leucovorin) are chemotherapeutic agents whose molecularstructures are similar to folate; therefore, the Architectfolate assay cannot be used for patients using these drugs. Blood Venous blood specimen / Unknown 08/15/2024 9:43 AM EDT 08/15/2024 11:45 AM EDT Gavi Jovan DO LAB BLOOD ORDERABLES Final R esult Performing Organization Address [facility] Co de Phone Number [facility] [address] [place] [phone] * RPR (Monitor) with Reflex to??Titer (08/15/2024 9:43 AM EDT) RPR (Monitor) w/Refl Titer NON-REACTI VE NON-REACT CAPRICE [facility] Comment:THIS TEST WAS PERFOR MED AT:[facility] [place] [phone] ULLOA MD Rapid Plasma Reagin Ab Titer TNP [facility] Blood Venous blood specimen / Unknown 08/15/2024 9:43 AM EDT 08/15/2024 11:45 AM EDT Gavi Aldana DO LAB BLOOD ORDERABLES Final R esult Performing Organization Address [facility] Co de Phone Number [facility] [address] [place] [phone] * (ABNORMAL) Hemoglobin A1c (08/15/2024 9:43 AM EDT) Hemoglobin A1c 8.0(H) <6.0 % [facility] Comment:Hemoglobin A1C Refer ence Range Adults: 4.8 - 6.0 % Non diabetic: < 6.0 % Goal: < 7.0 %Additional Action Suggested: > 8.0 %Note: Hemoglobin A1c results are invalid for patients with abnormal amounts of HbF. Blood transfusions may impact the HbA1c concentration in the patient sample. Estimated Average Glucose 183 mg/dL [facility] Comment:eAG = Estimated ave rage glucose which is %A1C expressed asaverage glucose, using the formula of the O6V-OfcihqoWtvgskv Glucose study (ADAG), Diabetes Care, Vol.31,#8,Jan. 2007 Blood Venous blood specimen / Unknown 08/15/2024 9:43 AM EDT 08/15/2024 11:45 AM EDT Gavi Aldana LAB BLOOD ORDERABLES Final R esult Performing Organization Address City/[facility] Co de Phone Number [facility] [address] [place] [phone] * (ABNORMAL) Urinalysis Complete (08/15/2024 9:42 AM EDT) Color Urine Dark Yellow [facility] Appearance Urine Clear [facility] PH 5.5 5.0 - 9.0 [facility] Glucose Urine UA Negative Negative mg/dL [facility] Urine Blood Small (1+)(A) Negative [facility] Specific [place] - Urine >=1.030(H) 1.005 - 1.025 [facility] Urine Protein 300 (3+)(A) Neg-Trace mg/dL [facility] Urine Ketones Trace Negative mg/dL [facility] Nitrite Urine Negative Negative [facility] Leukocyte Esterase Urine Negative Negative [facility] RBC Urine >20(A) 0 - 2 /HPF [facility] Urine WBC 0-5 0 - 5 /HPF [facility] Urine Squamous Epithelial Cell 0-2 0 - 2 /HPF [facility] Urine Bacteria None Seen None Seen [facility] Hyaline Casts, Urine 3-5 0 - 2 /LPF [facility] Urine (Urine, Random) 08/15/2024 9:42 AM EDT 08/15/2024 11:25 AM EDT Gavi Aldana DO LAB URINE ORDERABLES Final R esult Performing Organization Address City/[facility] Co de Phone Number [facility] [address] [place] [phone] * (ABNORMAL) Glucose, Whole Blood (07/17/2024 9:33 AM EST) Glucose, Whole Blood 287(H) 60 - 115 mg/dL [facility] Comment:METER #: [id number] 5Testing performed in the Endocrinology Department [address] , [address], [facility]. 07/17/2024 9:33 AM EST 07/17/2024 9:38 AM EST us Generic External Data Provider LAB BLOOD ORDERAB LES Final Result Performing Organization Address [facility]/State/ZIP Co de Phone Number [facility] [address] [place] [address] [phone] * Lipid Panel, Standard (09/20/2023 7:27 AM EDT) Triglycerides 96 <150 mg/dL [facility] Comment:Desirable Triglyceri de: less than 150 mg/dLBorderline High Triglyceride 150-199 mg/dLHigh Triglyceride: 200-499 mg/dLVery High Triglyceride: greater than or equal to 5OO mg/dL Cholesterol 139 <200 mg/dL [facility] Comment:Desirable Cholestero l: less than 200 mg/dLBorderline High Cholesterol: 200-239 mg/dLHigh Cholesterol: greater than 239 mg/dL LDL Cholesterol Calculated 69 <100 mg/dL [facility] Comment:Desirable LDL: less than 100 mg/dLNear Optimal/Above Optimal LDL: 110- 129 mg/dLBorderline High LDL: 130-159 mg/dLHigh LDL: 160-189 mg/dLVery High LDL: greater than or equal to 190 mg/dL HDL Cholesterol 51 >40 mg/dL [facility] Comment:Desirable HDL: great er than 40 mg/dL Note: This HDL assay may give artificially low results in patients with liver disease. Blood Venous blood specimen / Unknown 09/20/2023 7:27 AM EDT 09/20/2023 7:27 AM EDT Gavi Jovan DO LAB BLOOD ORDERABLES Final R esult Performing Organization Address [facility] Co de Phone Number [facility] [address] [place] [phone] * (ABNORMAL) Albumin, Random Urine W/Creatinine (09/20/2023 7:23 AM EDT) Creatinine, Urine 211.65 mg/dL [facility] Microalbumin Urine 817.0 mg/L [facility] Microalbum Creatinine Ratio Ur 386.0(H) <30 ug/mg cr [facility] Comment:Albumin/Creatinine R atio Reference Ranges: Normal: < 30 ug/mg creatinine Microalbuminuria: 30 - 300 ug/mg creatinineClinical Albuminuria: > 300 ug/mg creatinine Urine (Urine, Random) 09/20/2023 7:23 AM EDT 09/20/2023 7:41 AM EDT Gavi Jovan [place] [facility] URINE ORDERABLES Final R esult Performing Organization Address City/[facility] Co de Phone Number [facility] [address] [place] [phone] * Hm Colonoscopy (07/28/2021 2:52 PM EST) Historical Provider MD HEALTH MAINTENANCE Final Result from Last 3 Months or Most Recently Relevant to Health Maintenance Insurance [facility] [address] [place] [address] [place] [phone] Care Teams Insulation Worker Apprentice Relationship Specialty Start Date End Date Gavi Aldana DO [address] [place] [phone] PCP - General Family Medicine 06/06/18
--- OUTSIDE RECORDS SUMMARY | 2024-09-18 08:53 | XMS_ITS | Encounter Summary ---
Author Organization [employer] Address [address] [facility] 7t [place] [address] Care Team Providers Care Title Search Manager Name Role Phone Gavi Aldana DO Primary Care Provider + [phone] Reason for Visit * Reason Comments Med Refill Encounter Details Date Type Department Care Team ([facility] st Contact Info) Description 04/04/2024 Refill [facility] [address] [place] [address] Gavi Aldana DO [address] [place] [address] Social History Tobacco Use Types Packs/Day Years [...] Description 10/12/2024 9:00 AM EDT Office Visit [facility] ADULT DENTAL [address] [place] [address] José Miguel Sy DDS [address] [place] [address] documented as of this encounter Visit Diagnoses Not on filedocumented in this encounter Additional Health Concerns Assessment Noted Time PHQ-9 Depression Total Score: 1 06/15/19 24 10:29 AM EST documented as of this encounter Care Teams Title Search Manager Relationship Specialty Start Date End Date Gavi Aldana DO [address] [place] [address] PCP - General Family Medicine 06/06/18 documented as of this encounter
--- OUTSIDE RECORDS SUMMARY | 2024-09-18 08:53 | XMS_ITS | Clinical Summary ---
Author Organization [address] [facility] Address [address] [place] [address] Phone Care Team Providers Care Strategic Account Executive Name Role Phone Kelle Aldanafer Ej [place] Primary Care Provider +[phone] Allergies No known active allergies Medications metFORMIN [...] Date Diagnosed Date DM type 2 (diabetes mellitus , type 2) ([facility] V24, [facility] V28) 07/28/2011 Hyperlipidemia with target LDL less than 70 02/2 07/2011 Overview (05/02/2024): IMO update Hypertension 07/28/2011 Non-ischemic cardiomyopathy ([facility] V24, [facility]/ C V28) 07/28/2011 Encounters Date Type Department Care Team Description 07/02/2024 9:00 AM EST Office Visit [facility] [address] [facility] 250 [place] [phone] Kota De La Torre DPM Primary osteoarthritis of both feet (Primary Dx); Dermatophytosis of nail; Pain in toe of right foot; Tinea pedis of both feet; Pain in toe of left foot; Diabetic mononeuropathy simplex (CMS/HCC V24, CMS/[facility] V28); Type II diabetes mellitus with peripheral circulatory disorder ([facility] V24, CMS/[facility] V28) from Last 3 Months Social History Tobacco [...] 11:00 AM EDT Consult Vascular Surgery - [place] [address] [place] [phone] Tiffanie Holbrook MD [address] [place] [address] 10/01/2024 9:00 AM EDT Office Visit [facility] [address] [facility] 250 [place] [phone] Kota De La Torre, DPRah [address] [facility] [address] [place] [address] Health Maintenance Due Date Last Done Comments [...] age to complete this topic Meningococcal B Vaccine Aged Out No l onger eligible based on patient's age to complete this topic RSV Immunization Patients Under 20 months Aged Out No longer eligible based on patient's age to complete this topic Varicella Vaccines Aged Out No longer eligible based on patient's age to complete this topic Insurance [place] - [place] [facility] Member Subscriber Plan / Payer (Ef fective 2014-Present) Name:Candi Sanchez E Relation to Subscriber:Self Name:Candi Sanchez Payer ID:[id number] Group ID:[id number] Type:Not on file Address: [address] [place] [address] Care Teams Strategic Account Executive Relationship Specialty Start Date End Date Gavi Aldana DO [address] [place], [place] PCP - General Internal Medicine 10/27/11
--- OUTSIDE RECORDS SUMMARY | 2024-09-18 08:53 | XMS_ITS | Data Portability ---
Author Organization [place] - [facility] Address [address] [facility] 100 [place] [address] Care Team Providers Care Critical Care Registered Nurse Name Role Phone MARTINEZ VIZCARRA Primary Care [...] copy of the audiogram, a list of [facility] hearing aid providers, and medical clearance [...] Organization Details Recorded Time Dizziness and giddiness 795183633 Active 2018 Dizziness and giddiness ; Note: Date Diagnosed : 01/25/2019 11:02 AM (R42) Not Available [facility] 4 02:39:47 Impacted cerumen of bilateral ears 59092041423 20743 Active 2018 Impacted cerumen, bilateral ; Note: Date Diagnosed : 01/25/2019 11:05 AM (H61.23) Not Available [facility] 4 02:39:43 Bilateral tinnitus 78219310414 02 Active 2018 Tinnitus, bilateral ; Note: Date Diagnosed : 01/25/2019 11:24 AM (H93.13) Not Available [facility] 4 02:39:43 Cough 91492312 Active 2020 Cough, unspecifi ed; Note: Changed from R05 to R05.9 ( 4 9:23 AM) , Date Diagnosed : 02/11/2021 10:17 AM (R05) WYATT NAVA MD [address] [place] [address], [phone] , [facility] - [facility] 4 10:02:57 Benign paroxysma l positiona l vertigo 706982413 Active 2018 Benign paroxysma l vertigo, unspecifi ed ear; Note: Date Diagnosed : 01/25/2019 11:03 AM (H81.10) Not Available [facility] 4 02:39:53 Sensorine ural hearing loss of bilateral ears 710511005 Active 2018 Sensorine ural hearing loss, bilateral ; Note: Date Diagnosed : 01/25/2019 11:24 AM (H90.3) Not Available [facility] 4 02:39:48 Gastroeso phageal reflux disease without esophagit is 355186829 Active 2023 Gastro-es ophageal reflux disease without esophagit is; Note: Date Diagnosed : 08/25/2023 10:32 AM (K21.9) Not Available [facility] 02:39:48 Allergic rhinitis 10195786 Active 2023 Allergic rhinitis, unspecifi ed; Note: Date Diagnosed : 08/01/2023 10:25 AM (J30.9) Not Available [facility] 02:39:50 Nasal congestio n 03979532 Active 2023 Nasal congestio n; Note: Date Diagnosed : 08/01/2023 10:25 AM (R09.81) Not Available [facility] 02:39:53 Problem Notes None recorded. Procedures Surgical History Date Name Laterality Status Provider Name and Address Organization Details Recorded Time 07/30/19 25 Wax_DP completed WYATT NAVA MD [address] [place] [address], [phone], [facility] 07/30/2024 08:53:51 07/30/19 25 Air only Audio (23911) completed Nupur DIOP [address] [place] [address], [phone], [facility] 07/30/2024 09:17:09 07/30/19 25 Tympanometry (41305) completed Nupur DIOP [address] [place] [address], [phone], [facility] 07/30/2024 09:17:15 Imaging Results Imaging Date [...] mg tablet 04/27 completed Medicati on ID: [id number] B rand Name: atorvast atin Sen d Method: E-Prescr ibed Sub s Allowed: subs OK Speci al Instruct ion: TOME PRAVEEN TABLETA TODOS LOS D AL ACOSTARS E Medica tionGene ricName: atorvast atin Not Available Not Available Not Available Vitamin C 500 mg tablet active Medicati on ID: 815980 B rand Name: Vitamin C Send Method: [...] layed release 02/11 completed Medicati on ID: [id number] D uration Value: 90 Brand Name: aspirin Send Method: E-Prescr ibed Sub s Allowed: subs OK Speci al Instruct ion: TOME PRAVEEN TABLETA POR V?A ORAL TODOS LOS D? Med icationG enericNa me: aspirin Not Available Not Available Not Available tramadol 50 mg tablet active Medicati on ID: 419108 B rand Name: tramadol Send Method: E-Prescr ibed Sub s Allowed: subs OK Medic ationGen ericName : tramadol Not Available Not Available Not Available spironola ctone 25 mg tablet active Medicati on ID: 815767 B rand Name: spironol actone S end [...] 10 mg tablet active Medicati on ID: 103165 B rand Name: baclofen Send Method: E-Prescr ibed Sub s Allowed: subs OK Speci al Instruct ion: TAKE 1 TABLET BY MOUTH 3 TIMES EVERY DAY NEEDED FOR MUSCLE SPASM/PA IN [facility] ericName : baclofen Not Available Not Available Not Available benzonata te 100 mg capsule TAKE 1 CAPSULE BY MOUTH THREE TIMES DAILY NEEDED FOR COUGH active Not Available Not Available No t Available pantopraz ole 40 mg tablet,de layed release active Medicati on ID: 429238 B rand Name: pantopra zole Sen d Method: E-Prescr ibed Sub s Allowed: subs OK [facility] ericName : pantopra zole Not Available Not Available Not Available ferrous sulfate 325 mg (65 mg iron) tablet 04/27 completed Medicati on ID: [id number] B rand Name: ferrous sulfate Send Method: [...] mg tablet 02/11 completed Medicati on ID: [id number] D uration Value: 90 Brand Name: metoprol [...] (0.125 mg) tablet active Medicati on ID: 060974 B rand Name: digoxin Send Method: E-Prescr [...] mg capsule 02/11 completed Medicati on ID: [id number] B rand Name: gabapent in Send Method: E-Prescr ibed Sub s Allowed: subs OK Medic ationGen ericName : gabapent in Not Available Not Available Not Available Novolog U-100 Insulin aspart 100 unit/mL subcutane ous solution active Medicati on ID: 604029 B rand Name: Novolog U-100 Insulin aspart S end Method: E-Prescr ibed Sub s Allowed: subs OK Speci al Instruct ion: UP TO 100 UNITS VIA INSULIN PUMP SUBCUT DAILY Me dication GenericN norma: Novolog U-100 Insulin aspart Not Available Not Available Not Available nystatin 100,000 unit/gram topical powder 04/27 completed Medicati on ID: 813515 B rand Name: nystatin Send Method: E-Prescr ibed Sub s Allowed: subs OK Speci al Instruct ion: APLIQUE AL LIAT AFECTADA DOS VECES AL D A Medica tionGene ricName: nystatin Not Available Not Available Not Available albuterol sulfate HFA 90 mcg/actua tion aerosol inhaler 02/11 completed Medicati on ID: 555995 B rand Name: albutero l sulfate Send Method: E-Prescr ibed Sub s Allowed: subs OK Speci al Instruct ion: TOME DOS INHALACI ONES POR V A ORAL CADA CUATRO A SEIS HORAS CUANDO SEA NECESARI O Medica tionGene ricName: albutero l sulfate Not Available Not Available Not Available fluticaso ne propionat e 50 mcg/actua tion nasal spray,lalo pension active Medicati on ID: 646263 B rand Name: fluticas one propiona te [...] 40 mg tablet active Medicati on ID: 776471 B rand Name: valsarta n Send Method: [...] mg-50 mg tablet active Medicati on ID: 888407 B rand Name: Senna Plus Sen d [...] ion nasal spray active Medicati on ID: 732007 B rand Name: Narcan S end Method: [...] pen injector 02/11 completed Medicati on ID: [id number] D uration Value: 30 Brand Name: Ozempic [...] Available Not Available Not Available Dexcom G7 Finish Mixer USE DIRECTED active Not Available Not Available [...] Updated DateTime 04/27/2024 149.86 cm 26.7 kg/m2 11320.19 g Susy Vera [place] - [facility] 04/27/2024 09:48:20 Date Recorded Body height Body mass index (BMI) Body weight Provider Name and Address Organization Details Last Updated DateTime 07/30/2024 149.86 cm 26.7 kg/m2 40663.19 g Nash Hammond [place] - [facility] 07/30/2024 08:41:37 Social History None recorded. Functional Status None recorded. Mental Status None recorded. Family History Nothing Reported. Medical History Condition Response Diabetes Y Gynecological HistoryNo gynecological history recorded. Obstetrics History GPAL:G 0 P 0 0 0 0 Past Encounters Encounter ID Performer Location Encounter Start Date Encounter Closed Date Diagnosis/Indication Diagnosis SNOMED-CT Code Diagnosis ICD10 Code Diagnosis Note [id number] WYATT NAVA MD [facility] [address] [address] 04/27/2024 09:29:27 04/27/2024 10:08:17 Cough 72539293 R05.9 Sensorineu ral hearing loss of bilateral ears 820239230 H90.3 [id number] WYATT NAVA MD [facility] [address] [address] 07/30/2024 08:36:37 07/30/2024 09:43:52 Sensorineural hearing loss of bilateral ears 018049772 H90.3 Audiologic al evaluation results: Right ear: [...] seal}} Impacted c erumen of bilateral ears 4368446644 084210 H61.23 Ears were meticulous ly cleaned bilaterall [...] Guarantor Name 04/27/2024 2 [employer] - [facility] [place] ([place]PLAC[place]/ADV ANTAGE - HMO) Candi Sanchez [id number] Candi Sanchez 07/30/2024 1 [facility] - DOS ON OR AFTER 2022 - [employer] (MEDICARE REPLACEMENT/ADV ANTAGE - HMO) Candi Sanchez [id number] Candi Sanchez Notes Date Note Type Note [...] 2 pills. Rx famotidine WYATT NAVA MD [address] [place] [address],[place] [address], [place], [address], [place] - [facility] 04/27/2024 10:06:17 07/30/2024 text/html IPad - Spanishhe aring lossdid not pursue hearing aids in past year 08/01/23 Dr Kern audiomild sloping to severe B SNHLcleared for B HAE PV 04/27/24 Iris - cough - improved with meds from pulscotty NAVA MD [address] [place] [address], [place], [phone], [facility] - [facility] 07/30/2024 09:42:27 OBGyn Episode No OBEpisode recorded.
--- OUTSIDE RECORDS SUMMARY | 2024-09-18 08:53 | XMS_ITS | Encounter Summary ---
Author Organization [employer] [facility] Address [address] [place] [address] 7t [place] [address] Care Team Providers Care Windsurfing Instructor Name Role Phone Gavi Aldana DO Primary Care Provider + [phone] Encounter Details Date Type Department Care Team (Late st Contact Info) Description 06/22/2022 Orders Only [facility] [address] [place] [address] Tamara Floyd LPN Social History Tobacco Use [...] 10/12/2024 9:00 AM EDT Office Visit [facility] ADULT DENTAL [address] [place] [address] José Miguel Sy DDS [address] [place], [place] [phone] documented as of this encounter Procedures Procedure Name Priority Date/Time Associated Diagnosis Comments GLUCOSE, WHOLE BLOOD Routine 07/06/2022 10:44 AM EST documented in this encounter Results * (ABNORMAL) Glucose, Whole Blood (07/06/2022 10:44 AM EST) Glucose, Whole Blood 204(H) 60 - 115 mg/dL [facility] Comment:METER #: [id number] 5Testing performed in the Endocrinology Department [address] , [address], [facility]. 07/06/2022 10:4 4 AM EST 07/06/2022 10:48 AM EST [facility] External Provider LAB BLO OD ORDERABLES Final Result Performing Organization Address City/State/[facility] Co de Phone Number [facility] [address] [place] [phone] [phone] documented in this encounter Visit Diagnoses Not on filedocumented in this encounter Care Teams Windsurfing Instructor Relationship Specialty Start Date End Date Gavi Aldana DO [address] [place] [address] PCP - General Family Medicine 06/06/18 documented as of this encounter
--- OUTSIDE RECORDS SUMMARY | 2024-09-18 08:53 | XMS_ITS | Encounter Summary ---
Author Organization [employer] Address [address] [facility] 7t [place] [address] Care Team Providers Care Vehicle Assembly Inspector Name Role Phone FlacoGavi humphreys Primary Care Provider + [phone] Encounter Details Date Type Department Care Team (Late st Contact Info) Description 09/14/2023 Orders Only [facility] MEDICINE [address] [place] [address] ProviderMeliton MD Social History Tobacco Use Types [...] Description 10/12/2024 9:00 AM EDT Office Visit [facility] ADULT DENTAL [address] [place], [place] [phone] José Miguel Sy DDS [address] [place], [place] [phone] documented as of this encounter Procedures Procedure [...] documented as of this encounter Care Teams Vehicle Assembly Inspector Relationship Specialty Start Date End Date Gavi Aldana DO [address] [place] [address] PCP - General Family Medicine 06/06/18 documented as of this encounter
== END 2024-09-18 09:16 | disposition home or self-care (01) ==
LOC: HO.ENCR 08:33
PROVIDERS: PCP Family Medicine; Visit Provider Registered Nurse Diabetes Educator
DX: E10.65 Type 1 diabetes mellitus with hyperglycemia (principal)

== ENCOUNTER → 2024-09-18 08:33 | Outpatient (BNVA) | payer OTHER, SELFPAY | PROVIDERS: PCP Family Medicine; Visit Provider Registered Nurse Diabetes Educator | DX: E10.65 Type 1 diabetes mellitus with hyperglycemia (principal) | CPT/HCPCS: 99211 ==

== ENCOUNTER 2024-10-03 09:09 | Outpatient (AMB) | payer OTHER, SELFPAY ==
--- OUTSIDE RECORDS SUMMARY | 2024-10-03 09:41 | XMS_ITS | Encounter Summary ---
Author Organization [employer] [facility] Address [address] [employer] 7t [place] [address] Care Team Providers Care Data Entry Technician Name Role Phone Gavi Aldana DO Primary Care Provider + [phone] Encounter Details Date Type Department Care Team (Latest Contact Info) Description 09/25/2018 Abstract [facility] CONVERSIONS Dental, Provider, DDS Social History [...] Description 10/12/2024 9:00 AM EDT Office Visit [facility] ADULT DENTAL [address] [place] [address] José Miguel Sy DDS [address] [place] [address] documented as of this encounter Visit Diagnoses Not on filedocumented in this encounter Care Teams Data Entry Technician Relationship Specialty Start Date End Date Gavi Aldana DO [address] [place] [address] PCP - General Family Medicine 06/06/18 documented as of this encounter
--- OUTSIDE RECORDS SUMMARY | 2024-10-03 09:41 | XMS_ITS | Encounter Summary ---
Author Organization [employer] [facility] Address [address] [place] [address] 7t [place] [address] Care Team Providers Care Rebar Fabricator Name Role Phone Gavi Aldana DO Primary Care Provider + [phone] Encounter Details Date Type Department Care Team [...] Description 10/12/2024 9:00 AM EDT Office Visit [facility] ADULT DENTAL [address] [place] [address] José Miguel Sy DDS [address] [place] [address] documented as of this encounter Visit Diagnoses Not on filedocumented in this encounter Care Teams Rebar Fabricator Relationship Specialty Start Date End Date Gavi Aldana DO [address] [place] [address] PCP - General Family Medicine 06/06/18 documented as of this encounter
--- OUTSIDE RECORDS SUMMARY | 2024-10-03 09:42 | XMS_ITS | Encounter Summary ---
Author Organization [employer] [facility] Address [address] [place] [address] [address]t [place] [address] Care Team Providers Care Supervisor Laboratory Animal Facility Name Role Phone Gavi Aldana DO Primary Care Provider + [phone] Encounter Details Date Type Department Care Team (Late st Contact Info) Description 06/22/2022 Orders Only [facility] MEDICINE [address] [place] [address] Tamara Floyd LPN Social History Tobacco Use [...] Description 10/12/2024 9:00 AM EDT Office Visit [facility] ADULT DENTAL [address] [place] [address] José Miguel Sy DDS [address] [place], [place] [phone] documented as of this encounter Procedures Procedure Name Priority Date/Time Associated Diagnosis Comments GLUCOSE, WHOLE BLOOD Routine 07/06/2022 10:44 AM EST documented in this encounter Results * (ABNORMAL) Glucose, Whole Blood (07/06/2022 10:44 AM EST) Glucose, Whole Blood 204(H) 60 - 115 mg/dL [facility] Comment:METER #: [id number] 5Testing performed in the Endocrinology Department [address] , [address], [facility]. 07/06/2022 10:4 4 AM EST 07/06/2022 10:48 AM EST [facility] External Provider LAB BLO OD ORDERABLES Final Result Performing Organization Address City/State/[facility] Co de Phone Number [facility] [address] [place] [address] [phone] documented in this encounter Visit Diagnoses Not on filedocumented in this encounter Care Teams Supervisor Laboratory Animal Facility Relationship Specialty Start Date End Date Gavi Aldana DO [address] [place] [address] PCP - General Family Medicine 06/06/18 documented as of this encounter
--- OUTSIDE RECORDS SUMMARY | 2024-10-03 09:42 | XMS_ITS | Encounter Summary ---
Author Organization [employer] Address [address] [facility] 7t [place] [address] Care Team Providers Care Creative Services Coordinator Name Role Phone Gavi Aldana DO Primary Care Provider + [phone] Reason for Visit * Reason Comments Med Refill Encounter Details Date Type Department Care Team ([facility] st Contact Info) Description 04/04/2024 Refill [facility] [address] [place] [address] Gavi Aldana DO [address] [place] [address] Social History Tobacco Use Types Packs/Day Years [...] Description 10/12/2024 9:00 AM EDT Office Visit [facility] ADULT DENTAL [address] [place] [address] José Miguel Sy DDS [address] [place] [address] documented as of this encounter Visit Diagnoses Not on filedocumented in this encounter Additional Health Concerns Assessment Noted Time PHQ-9 Depression Total Score: 1 06/15/19 24 10:29 AM EST documented as of this encounter Care Teams Creative Services Coordinator Relationship Specialty Start Date End Date Gavi Aldana DO [address] [place] [address] PCP - General Family Medicine 06/06/18 documented as of this encounter
--- OUTSIDE RECORDS SUMMARY | 2024-10-03 09:42 | XMS_ITS | Encounter Summary ---
Author Organization [facility] Address [address] [place] [address] [address] [place] [address] Care Team Providers Care Pharmacy Technician Assistant Name Role Phone Gavi Aldana DO Primary Care Provider + [phone] Reason for Visit * Reason Comments Med Refill Encounter Details Date Type Department Care Team ([facility] Contact Info) Description 10/11/[address] [facility] [address] [place] [address] Gavi Aldana DO [address] [place] [address] Other chronic pain Social History Tobacco Use [...] Description 10/12/2024 9:00 AM EDT Office Visit [facility] DENTAL [address] [place] [address] José Miguel Sy DDS [address] [place] [address] documented as of this encounter Visit Diagnoses Diagnosis Other chronic pain documented in this encounter Care Teams Pharmacy Technician Assistant Relationship Specialty Start Date End Date Gavi Aldana DO [address] [place] [address] PCP - General Family Medicine 06/06/18 documented as of this encounter
--- OUTSIDE RECORDS SUMMARY | 2024-10-03 09:42 | XMS_ITS | Encounter Summary ---
Author Organization [facility] Address [address] [place] [address] Care Team Providers Care Supervisor [place] Department Name Role Phone Gavi Aldana DO Primary Care Provider + [phone] Encounter Details Date Type Department Care Team (Late st Contact Info) Description 12/14/2022 Orders Only [facility] MED & PEDS [address] [place] [address] Gavi Duarte LPN Social History Tobacco Use [...] Description 10/12/2024 9:00 AM EDT Office Visit [facility] ADULT DENTAL [address] [place] [address] José Miguel Sy DDS [address] [place] [address] documented as of this encounter Visit Diagnoses Not on filedocumented in this encounter Care Teams Supervisor [place] Department Relationship Specialty Start Date End Date Gavi Aldana DO [address] [place] [address] PCP - General Family Medicine 06/06/18 documented as of this encounter
--- OUTSIDE RECORDS SUMMARY | 2024-10-03 09:42 | XMS_ITS | Encounter Summary ---
Author Organization [facility] Address [address] [place] [address] Care Team Providers Care Sales Representative Business Courses Name Role Phone Gavi Aldana Primary Care Provider [phone] Reason for Referral * Consultation (Routine) - Authorized Specialty Diagnoses / Procedures Referred By Humphrey barrera Referred To Contact Vascular Surgery Diagnoses Peripheral venous insufficiency Kota De La Torre DPM [address] [address] Phone: tel: fax: Dion Li MD [address] [facility] [address] [place] [address] Phone: tel: fax: Referral ID Status Reason Start Date Expiration Date Visits Requested Visits Authorized [id number] Authorized Specialty Services Required 10/01/2024 10/01/2025 1 1 Reason for Visit * Reason Comments DM Foot Care Follow-up Encounter Details Date Type Department Care Team ([facility] Contact Info) Description 10/01/2024 9:00 AM EDT Office Visit [facility] - [facility] [address] [address] Kota De La Torre DPM [address] [address] Peripheral venous insufficiency (Primary Dx); Primary osteoarthritis of both feet; Dermatophytosis of nail; Type II diabetes mellitus with peripheral circulatory disorder (CMS/HCC V24, CMS/HCC V28); Diabetic mononeuropathy simplex (CMS/HCC V24, CMS/HCC V28); Pain in toe of right foot; Pain in toe of left foot Social History Tobacco Use Types Packs/Day Years Used Date Smoking Tobacco: Never Assessed Comments Unknown Sex and Gender Information Value Date Recorded Sex Assigned at Not on file Legal Sex Female 12:57 PM EST Gender Identity Not on file Sexual Orientation Not on file documented as of this encounter Progress Notes * Néstorstephane Monreal Wil, DPM - 10/01/2024 9:00 AM EDT Last PCP visit:Referring MD: Gavi Aldana MD [...] frustrated at the swelling the pain discomfort continues have issues with the swelling of both lowerextremities she would like to discuss further treatment options there is a history of severe cardiomyopathy ejection fraction less than 20% presents today with her daughter 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 IMAGING: IMPRESSION: 1. Peripheral venous insufficiency Ambulatory referral to Vascular Surgery 2. Primary osteoarthritis of both feet 3. Dermatophytosis of nail 4. Type II diabetes mellitus with peripheral circulatory disorder ([facility] V24, [facility] V28) 5. Diabetic mononeuropathy simplex ([facility] V24, [facility] V28) 6. Pain in toe of right foot 7. Pain in toe of left foot PLAN: Pt was seen and examined, history reviewed. Worsening arthritis of both feet was discussed and reviewed Voltaren gel continue with Discussed possible benefits from repeat radiographs most recent taken in January Diabetic shoes and inserts recommended Worsening dermatophytosis of skin discussed and reviewed Lotrimin prescribed printed prescription given given the patient's issues getting e-prescribed lastappointment Referral placed to vascular surgery for evaluation and treatment for second opinion Discussed with patient regarding proper glucose control, [...] Care Team (Late st Contact Info) Description 12/06/2024 10:00 AM EDT Consult Vascular Surgery - [facility] [address] [facility] [address] [place] [address] Tiffanie Holbrook MD [address] [facility] [address] [place] [address] 12/31/2024 9:15 AM EDT Office Visit [facility] Surgery - [facility] [address] [facility] [address] [place] [address] Kota De La Torre DPM 175 [facility] [address] [place] [address] Scheduled Referrals Name Type Priority Associated Diagnoses Orde r Schedule Ambulatory referral to Vascular Surgery Outpatient Referral Routine Peripheral venous insufficiency 1 Occurrences starting 10/01/2024 until 10/01/2025 documented as of this encounter Visit Diagnoses Diagnosis Peripheral venous insufficiency- Primary Unspecified venous (peripheral) insufficiency Primary osteoarthritis of both feet Dermatophytosis of nail Type II diabetes mellitus with peripheral circulatory disorder ([facility] V24, [facility] V28) Type II or unspecified type diabetes mellitus with peripheral circulatory disorders, not stated as uncontrolled Diabetic mononeuropathy simplex ([facility] V24, [facility] V28) Type II or unspecified type diabetes mellitus with neurological manifestations, not stated as uncontrolled Pain in toe of right foot Pain in soft tissues of limb Pain in toe of left foot Pain in soft tissues of limb documented in this encounter Care Teams Sales Representative Business Courses Relationship Specialty Start Date End Date Gavi Aldana DO [address] [place] [address] PCP - General Internal Medicine 10/27/11 documented as of this encounter
--- OUTSIDE RECORDS SUMMARY | 2024-10-03 09:42 | XMS_ITS | Clinical Summary ---
Author Organization [employer] Address [address] [place] [address] 7[address] [place] [address] Care Team Providers Care Photo Colorer Name Role Phone Gavi Aldana DO Primary Care Provider + [phone] Allergies Active Allergy Reactions Criticality Noted Date [...] FOR COUGH 30 capsule 023 Active Nystop 481952 UNIT/GM powder APPLY TO THE AFFECTED AREA(S) [...] capsule 1 023 Active UltiCare Short [place] 31G X 8 MM misc USE DIRECTED [...] BEDTIME NEEDED FOR SLEEP 60 tablet 3 024 Active acetaminophen (Tylenol 8 Hour) 650 [...] FOR LOW BLOOD SUGAR 30 tablet 5 024 Active lidocaine (Lidoderm) 5 % patchIndicati ons:Acute pain of right shoulder Apply 1 patch topically Once per day. Remove & discard patch after 12 hours. 30 patch 025 Active baclofen (Lioresal) 10 MG tabletIndicat ions:Acute pain of right shoulder Take one tablet TID PRN 42 tablet 025 Active baclofen (Lioresal) 10 MG tabletIndicat ions:Acute pain of right shoulder Take one tablet TID PRN 42 tablet 025 2024 Discontinued(R eorder (will not trigger notification to Pharmacy)) Active [...] [facility] Physical exam wnl Rapid strep, Covid and Flu negative Plan: supportive measures, recommended Tylenol prn, pt to test at home if symptoms do not improve or worsen and notify us if positive or worsening of symptoms Pt verbalized understanding Encounters Date Type Department Care Team Description 09/25/2024 Refill [facility] MED & PEDS [address] [place], [place] [phone] Gavi Aldana DO Acute pain of right shoulder 09/10/2024 Telephone [facility] MED[facility] [address] [place] [phone] Gavi Aldana DO Durable Medical Equipment (DME Script Recliner Chair) 09/04/2024 Orders Only GENERIC EXTERNAL DATA DEPARTMENT Provider, Generic External Data 08/29/2024 Telephone [facility] MED[facility] [address] [place] [phone] Gavi Aldana DO Prior Auth Prescription 08/28/2024 9:00 AM EDT Office Visit [facility] ADULT DENTAL [address] [place] [phone] José Miguel Sy DDS Dental caries (Primary Dx) 08/28/2024 Orders Only [facility] [address] [place] [phone] Gavi Aldana DO Microscopic hematuria (Primary Dx) 08/24/2024 Telephone [facility] [address] [place] [phone] Gavi Aldana DO Results 08/24/[address] [address] Gavi Aldana DO Durable Medical Equipment 08/23/2024 Orders Only [facility] External Provider, [facility] 08/15/2024 8:40 AM EDT Office Visit [facility] [address] [place] [phone] Veena White NP Acute pain of right shoulder (Primary Dx); Hand swelling 07/17/2024 Orders Only GENERIC EXTERNAL DATA DEPARTMENT Provider, Generic External Data 07/11/2024 8:00 AM EST Office Visit [facility] AD[facility] DENTAL [address] [place] [address] José Miguel Sy DDS Dental caries into pulp (Primary Dx) from Last 3 Months Immunizations Name Administration [...] Office Visit [facility] [address] [place] [address] José Miguel Sy, DDS [address] [place] [address] Health Maintenance Due Date Last Done Comments [...] 8:00 AM EST Dental caries into pulp BITEWINGS - 4 RADIOGRAPHIC IMAGES Routine 07/04/2024 9:00 AM EST Dental caries into pulp Dental calculus Localized gingival recession Dental caries Missing teeth, acquired COMPREHENSIVE ORAL EVALUATION - NEW OR ESTABLISHED PATIENT Routine 07/04/2024 9:00 AM EST LIPID PANEL, STANDARD Routine 09/20/2023 7:27 AM EDT Type 2 diabetes mellitus without complication, with long-term current use of insulin ([facility]) ALBUMIN, RANDOM URINE W/CREATININE Routine 09/20/2023 7:23 AM EDT Type 2 diabetes mellitus without complication, with long-term current use of insulin ([facility]) PROPHYLAXIS - ADULT Routine 03/10/2022 1 2:00 AM EDT INTRAORAL - COMPLETE SERIES OF RADIOGRAPHIC IMAGES Routine 03/10/2022 12:00 AM EDT HM COLONOSCOPY Routine 07/28/2021 2:52 PM EST from Last 3 Months or Most Recently Relevant to Health Maintenance Results * T-SPOT??.TB (09/04/2024 9:02 AM EDT) Pathologist [facility] T Spot TB Negative Negative [facility] Comment:A negative test resu lt [...] as aquantitative test. TS PANEL A 0 [facility] TS PANEL B 0 [facility] Negative Control Passed [facility] Positive Control Passed [facility] Comment:For additional infor jared, please refer tohttp://education.[employer]C Plus/faq/KIS256(This link is being provided for informational/educational purposes only.)THIS TEST WAS PERFORMED AT:[employer] [id number] [place] [id number] CANTU MD,PHD 09/04/2024 9:02 AM EDT 09/04/2024 9:02 AM EDT us Generic External Data Provider LAB BLOOD ORDERAB LES Final Result [facility] [address] [place] [phone] * Hepatitis Panel, General (09/04/2024 9:02 AM EDT) Hepatitis A IgM Nonreactive Nonreactive [facility] Comment:IgM antibodies to MCCANN V not detected; does not exclude earlyacute or recovered HAV infection. ~Hepatitis B Surface Antibody REACTIVE Nonreactive [facility] Comment:REACTIVE: > 11.99 mI U/mL Hepatitis B Core Antibody Nonreactive Nonreactive [facility] Hepatitis C Antibody Nonreactive Nonreactive [facility] Comment:Antibodies to HCV no t detected; does not exclude early acuteHCV infection. Hepatitis B Surface Ag Negative Negative [facility] 09/04/2024 9:02 AM EDT 09/04/2024 9:02 AM EDT us Generic External Data Provider LAB BLOOD ORDERAB LES Final Result [facility] [address] [place] [phone] * (ABNORMAL) CBC auto differential (09/04/2024 9:02 AM EDT) White Blood Count 6.0 4.8 - 10.8 X10*3/uL [facility] Red Blood Count 4.63 4.20 - 5.50 X10*6/uL [facility] Hemoglobin 10.8(L) 12.0 - 16.0 g/dl [facility] Hematocrit 35.1(L) 37.0 - 47.0 % [facility] Mean Corpuscular Volume 75.8(L) 80.0 - 98.0 fL [facility] Mean Corpuscular Hemoglobin 23.3(L) 27.0 - 33.0 pg [facility] Mean Corpuscular HGB Conc 30.8(L) 31.0 - 35.0 g/dl [facility] Red Cell Distribution Width 13.8 11.0 - 16.0 % [facility] Platelet Count 158(L) 160 - 400 X10*3/uL [facility] Mean Platelet Volume 13.0(H) 9.4 - 12.3 fL [facility] Neutrophils Percent Auto 69.9 45 - 73 % [facility] Imm Gran Pct Auto 0.7(H) 0.0 - 0.4 % [facility] Lymphocytes Percent Auto 16.4(L) 20 - 40 % [facility] Monocytes Percent Auto 8.5 2 - 11 % [facility] Eosinophils Percent Auto 3.8 0 - 4 % [facility] Basophils Percent Auto 0.7 0 - 2 % [facility] NRBC Pct Auto 0.0 0.0 - 0.2 /100WBC [facility] Neutrophils Absolute Auto 4.2 2.0 - 8.3 x10*3/uL [facility] Imm Gran Abs Auto 0.04(H) 0.00 - 0.03 X10*3/uL [facility] Lymphocytes Absolute Auto 1.0(L) 1.2 - 4.9 X10*3/uL [facility] Monocytes Absolute Auto 0.5 0.1 - 1.2 X10*3/uL [facility] Eosinophils Absolute Auto 0.2 0.0 - 0.4 X10*3/uL [facility] Basophils Absolute Auto 0.0 0.0 - 0.2 X10*3/uL [facility] NRBC Abs Auto 0.000 0.0 - 0.012 X10*3/uL [facility] 09/04/2024 9:02 AM EDT 09/04/2024 9:02 AM EDT us Generic External Data Provider LAB BLOOD ORDERAB LES Final Result Performing Organization Address [facility] Co de Phone Number [facility] [address] [place] [phone] * (ABNORMAL) Sed Rate by Modified Austinren (09/04/2024 9:02 AM EDT) Erythrocyte Sedimentation Rate 34(H) 0 - 20 MM/HR [facility] Comment:Patients with polycy themia and many hemoglobin abnormalitiesmay have depressed sed rates whereas patients with anemiamay have elevated sed rates. 09/04/2024 9:02 AM EDT 09/04/2024 9:02 AM EDT us Generic External Data Provider LAB BLOOD ORDERAB LES Final Result Performing Organization Address City/[facility]/ZIP Co de Phone Number [facility] [address] [place] [phone] * C-reactive Protein (09/04/2024 9:02 AM EDT) C Reactive Protein 0.46 < or = 0.50 mg/dL [facility] 09/04/2024 9:02 AM EDT 09/04/2024 9:02 AM EDT us Generic External Data Provider LAB BLOOD ORDERAB LES Final Result Performing Organization Address [facility]/ZIP Co de Phone Number [facility] [address] [place] [phone] * TSH (09/04/2024 9:02 AM EDT) Thyroid Stimulating Hormone 1.41 0.32 - 4.0 uIU/mL [facility] Comment:TSH 3rd Generation ( [facility]) 09/04/2024 9:02 AM EDT 09/04/2024 9:02 AM EDT us Generic External Data Provider LAB BLOOD ORDERAB LES Final Result Performing Organization Address [facility] Co de Phone Number [facility] [address] [place] [phone] * T4, Free (09/04/2024 9:02 AM EDT) Free T4 (Free Thyroxine) 1.31 0.71 - 1.85 ng/dL [facility] 09/04/2024 9:02 AM EDT 09/04/2024 9:02 AM EDT Generic External Data Provider LAB BLOOD ORDERAB LES Final Result Performing Organization Address [facility] Co de Phone Number [facility] [address] [place] [phone] * (ABNORMAL) Comprehensive Metabolic Panel (09/04/2024 9:02 AM EDT) Sodium 141 135 - 145 mmol/L [facility] Potassium 3.7 3.3 - 5.1 mmol/L [facility] Chloride 110(H) 96 - 108 mmol/L [facility] Carbon Dioxide 29 22 - 29 mmol/L [facility] Anion Gap 6(L) 12 - 20 [facility] Urea Nitrogen (BUN) 14 9 - 16 mg/dL [facility] Creatinine, Serum 0.76 0.5 - 1.4 mg/dL [facility] Estimated Glomerular Filt Rate >60 [facility] Comment:Chronic Kidney Disea se: Estimated GFR < 60 mL/min/1.05t7Evqyjh Kidney Disease: Estimated GFR < 15 mL/min/1.73m2 Glucose 166(H) 60 - 115 mg/dL [facility] Calcium 9.3 8.4 - 10.2 mg/dL [facility] Bilirubin, Total 0.3 0.0 - 1.0 mg/dL [facility] Aspartate Amino Transferase 26 5 - 31 U/L [facility] Alanine Aminotransferase 15 0 - 31 U/L [facility] Total Protein 6.8 6.5 - 8.0 g/dL [facility] Albumin Level 3.0(L) 3.5 - 5.0 g/dL [facility] Alkaline Phosphatase 118(H) 39 - 117 U/L [facility] 09/04/2024 9:02 AM EDT 09/04/2024 9:02 AM EDT us Generic External Data Provider LAB BLOOD ORDERAB LES Final Result [facility] [address] [place] [phone] [phone] * (ABNORMAL) Basic Metabolic Panel (08/28/2024 10:10 AM EDT) Sodium 139 135 - 145 mmol/L [facility] Potassium 3.9 3.3 - 5.1 mmol/L [facility] Chloride 106 96 - 108 mmol/L [facility] Carbon Dioxide 28 22 - 29 mmol/L [facility] Anion Gap 9(L) 12 - 20 [facility] Urea Nitrogen (BUN) 17(H) 9 - 16 mg/dL [facility] Creatinine, Serum 0.78 0.5 - 1.4 mg/dL [facility] Estimated Glomerular Filt Rate >60 [facility] Comment:Chronic Kidney Disea se: Estimated GFR < 60 mL/min/1.32c5Yexybz Kidney Disease: Estimated GFR < 15 mL/min/1.73m2 Glucose 298(H) 60 - 115 mg/dL [facility] Calcium 8.9 8.4 - 10.2 mg/dL [facility] Blood Venous blood specimen / Unknown 08/28/2024 10:10 AM EDT 08/28/2024 11:12 AM EDT us Gavi Aldana DO LAB BLOOD ORDERABLES Final R esult [facility] [address] [place] [phone] * Cytopath-cell enhanced (08/28/2024 10:09 AM EDT) 08/28/2024 10:0 9 AM EDT 08/29/2024 6:10 AM EDT Narrative [facility] - 08/31/2024 11:09 AM EDT ----- ------- Name: Candi Solomon ? Age/Sex: 73/F ? : 1950 Unit#: [id number] ?? Attend Dr: Gavi Aldana DO ?Re08/28/24 ?Status: DEP REF ? Location: [facility] ? Disch: ? ----- ------- SPEC : [id number] ? RECD: 08/29/24 ? STATUS: ??SOUT ? REQ NUM: [id number] ? MILAN: 08/28/24-1008 ? SUBM DR: Gavi Aldana DO ? ENTERED: ??08/29/24 ?SP TYPE: Cytology ? OTHR DR: ? [...] (signature on file) Arlin Ogden MD 08/31/24 1109 ? ----- ------- ? END OF REPORT ? us Gavi Aldana DO LAB CYTOLOGY ORDERABLES Karina terry Result [facility] [address] [place] [phone] [phone] * US Thyroid (08/23/2024 9:44 AM EDT) Anatomical Region Laterality Modality Head, Neck Ultrasound 08/23/2024 9:44 AM EDT Narrative 08/23/2024 3:29 PM EDT ? [facility] ?[address] ?[place] [address] ? Ultrasound Report ? Signed ? Patient: Sanchez Mueller,[place] ?MR#: ?? [id number] ? : 1950 ?Acct:[id number] ? Age/Sex: 73 / F ?ADM Date: 08/23/24 ? Loc: HO.US ? Attending Dr: Shruthi Cui MD ? Ordering Physician: Shruthi Cui MD ?? Date of Service: 08/23/24 ?? Procedure(s): US thyroid ?? Accession Number(s): [id number] ? cc: Gavi Aldana DO; Shruthi Cui [...] or equal to 1 cm: 4. ?? Under Cutter nodules are described as follows: ? 1. [...] EDT RP ? Dictated By: ?Divine,Vladislav S MD ? Signed By: ?<Electronically signed by Vladislav S Divine, MD in OV> ?08/23/24 1525 ? DD/ 0944 ? TD/TT: 08/23/24 0955 ? Kiln Cleaner: MSM ? Procedure Note Donotuseinterpreter, Image - 08/23/[address] [address] Ultrasound Report Signed Patient: Candi Solomon EMR#: [id number] : 9Acct:[id number] Age/Sex: 73 / FADM Date: 08/23/24 Loc: HO.US Attending Dr: Shruthi Cui MD Ordering Physician: Shruthi Cui MD Date of Service: 08/23/24 Procedure(s): US thyroid Accession Number(s): [id number] cc: Gavi Aldana DO; Shruthi Cui MD [...] than or equal to 1 cm: 4. Under Cutter nodules are described as follows: 1. Location: [...] 08/23/24 1525 DD/ 0944 TD/TT: 08/23/24 0955 Kiln Cleaner: LULY us [facility] External Provider IMG US PROCEDURES Final Result * CT Chest w/o Contrast (08/17/2024 9:18 AM EDT) Anatomical Region Laterality Modality Body, Chest Computed Tomogra phy 08/17/2024 9:18 AM EDT Narrative 08/17/2024 9:19 AM EDT ? [facility] ?[address] ?[place] [address] ? CT Scan Report ? Signed ? Patient: Candi Solomon ?MR#: ?? [id number] ? : 1950 ?Acct:[id number] ? Age/Sex: 73 / F ?ADM Date: 08/16/24 ? Loc: HO.CT ? Attending Dr: Gavi Aldana DO ? Ordering Physician: Gavi Aldana DO ?? Date of Service: 08/16/24 ?? Procedure(s): CT chest wo IV con ?? Accession Number(s): [id number] ? cc: Gavi Aldana DO ? Report Number: ?? [id number]: Total DLP = ??117.00 mGy-cm ? CLINICAL [...] in OV> ? 08/17/24 0919 ? DD/ 7 ? TD/TT: 08/17/24917 ? Kiln Cleaner: ? Procedure Note Jose Da Silva - 08/17/[address] [place] [address] [address] Scan Report Signed Patient: Candi Solomon EMR#: [id number] : 9Acct:[id number] Age/Sex: 73 / FADM Date: 08/16/24 Loc: HO.CT Attending Dr: Gavi Aldana DO Ordering Physician: Gavi Aldana DO Date of Service: 08/16/24 Procedure(s): CT chest wo IV con Accession Number(s): [id number] cc: Gavi Aldana DO Report Number: [id number]: Total DLP = 117.00 mGy-cm CLINICAL HISTORY: [...] in OV> 08/17/24918 DD/ 7 TD/TT: 08/17/24917 Kiln Cleaner: us Gavi Aldana DO IMG CT PROCEDURES Final Resu lt * CT Head w/o Contrast (08/17/2024 9:09 AM EDT) Anatomical Region Laterality Modality Head, Neck Computed Tomogra phy 08/17/2024 9:09 AM EDT Narrative 08/17/2024 9:11 AM EDT ? [facility] ?[address] ?[place] [address] ? CT Scan Report ? Signed ? Patient: Daniel Mueller,[place] ?MR#: ?? [id number] ? : 1950 ?Acct:[id number] ? Age/Sex: 73 / F ?ADM Date: 03/13/25 ? Loc: HO.CT ? Attending Dr: aGvi Aldana DO ? Ordering Physician: Gavi Aldana DO ?? Date of Service: 08/16/24 ?? Procedure(s): CT head/brain wo IV con ?? Accession Number(s): [id number] ? cc: Gavi Aldana DO ? Report Number: ?? [id number]: Total DLP = ??715.00 mGy-cm ? CLINICAL [...] DD/ 0909 ? TD/TT: 08/17/24 0909 ? Kiln Cleaner: ? Procedure Note Donjaeter, Image - 08/17/[address] [place] [address] [address] Scan Report Signed Patient: Candi Solomon EMR#: [id number] : 9Acct:[id number] Age/Sex: 73 / FADM Date: 08/16/24 Loc: HO.CT Attending Dr: Gavi Aldana DO Ordering Physician: Gavi Aldana DO Date of Service: 08/16/24 Procedure(s): CT head/brain wo IV con Accession Number(s): [id number] cc: Gavi Aldana DO Report Number: [id number]: Total DLP = 715.00 mGy-cm CLINICAL HISTORY: [...] in OV> 08/17/24909 DD/ 8 TD/TT: 08/17/24908 Kiln Cleaner: us Gavi Aldana DO IMG CT PROCEDURES Final Resu lt * Vitamin B12 (Cobalamin) and Folate Panel, Serum (08/15/2024 9:43 AM EDT) Vitamin B12 726 200 - 900 pg/mL [facility] Comment:NORMAL 200-900 PG/ML INDETERMINATE 160-199 PG/ML DEFICIENT < 160 PG/ML Folate 10.0 > or = 4.0 ng/mL [facility] Comment:Reference Values:> o r = [...] DO LAB BLOOD ORDERABLES Final R esult [facility] [address] [place] [phone] * RPR (Monitor) with Reflex to??Titer (08/15/2024 9:43 AM EDT) RPR (Monitor) w/Refl Titer NON-REACTI VE NON-REACT CAPRICE [facility] Comment:THIS TEST WAS PERFOR MED AT:[email or web address] [place] [id number] ULLOA MD Rapid Plasma Reagin Ab Titer TNP [facility] Blood Venous blood specimen / Unknown 08/15/2024 9:43 AM EDT 08/15/2024 11:45 AM EDT Gavi Samsierrasusan LAB BLOOD ORDERABLES Final R esult Performing Organization Address [facility] Co de Phone Number [facility] [address] [place] [phone] * (ABNORMAL) Hemoglobin A1c (08/15/2024 9:43 [...] patient sample. Estimated Average Glucose 183 mg/dL [facility] Comment:eAG = Estimated ave rage glucose which is %A1C expressed asaverage glucose, using the formula of the K7B-MzjguteIbfzxqg Glucose study (ADAG), Diabetes Care, Vol.31,#8,2007 Blood Venous blood specimen / Unknown 08/15/2024 9:43 AM EDT 08/15/2024 11:45 AM EDT Gavi Jovan LAB BLOOD ORDERABLES Final R esult Performing Organization Address [facility] Co de Phone Number [facility] [address] [place] [phone] * (ABNORMAL) Urinalysis Complete (08/15/2024 9:42 AM EDT) Color Urine Dark Yellow [facility] Appearance Urine Clear [facility] PH 5.5 5.0 - 9.0 [facility] Glucose Urine UA Negative Negative mg/dL [facility] Urine Blood Small (1+)(A) Negative [facility] Specific [place] - Urine >=1.030(H) 1.005 - 1.025 [facility] Urine Protein 300 (3+)(A) Neg-Trace mg/dL [facility] Urine Ketones Trace Negative mg/dL [facility] Nitrite Urine Negative Negative [facility] Leukocyte Esterase Urine Negative Negative [facility] RBC Urine >20(A) 0 - 2 /HPF [facility] Urine WBC 0-5 0 - 5 /HPF [facility] Urine Squamous Epithelial Cell 0-2 0 - 2 /HPF [facility] Urine Bacteria None Seen None Seen [facility] Hyaline Casts, Urine 3-5 0 - 2 /LPF [facility] Urine (Urine, Random) 08/15/2024 9:42 AM EDT 08/15/2024 11:25 AM EDT us Gavi Aldana DO LAB URINE ORDERABLES Final R esult Performing Organization Address [facility] Co de Phone Number [facility] [address] [place] [phone] * (ABNORMAL) Glucose, Whole Blood (07/17/2024 9:33 AM EST) Glucose, Whole Blood 287(H) 60 - 115 mg/dL [facility] Comment:METER #: [id number] 5Testing performed in the Endocrinology Department [address] , [address], [facility]. 07/17/2024 9:33 AM EST 07/17/2024 9:38 AM EST us Generic External Data Provider LAB BLOOD ORDERAB LES Final Result Performing Organization Address [facility] Co de Phone Number [facility] [address] [place] [phone] * Lipid Panel, Standard (09/20/2023 7:27 AM EDT) Triglycerides 96 <150 mg/dL [facility] Comment:Desirable Triglyceri de: less than 150 mg/dLBorderline High Triglyceride 150-199 mg/dLHigh Triglyceride: 200-499 mg/dLVery High Triglyceride: greater than or equal to 5OO mg/dL Cholesterol 139 <200 mg/dL [facility] Comment:Desirable Cholestero l: less than 200 mg/dLBorderline High Cholesterol: 200-239 mg/dLHigh Cholesterol: greater than 239 mg/dL LDL Cholesterol Calculated 69 <100 mg/dL [facility] Comment:Desirable LDL: less than 100 [...] DO LAB BLOOD ORDERABLES Final R esult [facility] [address] [place] [phone] * (ABNORMAL) Albumin, Random Urine W/Creatinine (09/20/2023 7:23 AM EDT) Creatinine, Urine 211.65 mg/dL [facility] Microalbumin Urine 817.0 mg/L [facility] Microalbum Creatinine Ratio Ur 386.0(H) <30 ug/mg cr [facility] Comment:Albumin/Creatinine R atio Reference Ranges: Normal: < 30 ug/mg creatinine Microalbuminuria: 30 - 300 ug/mg creatinineClinical Albuminuria: > 300 ug/mg creatinine Urine (Urine, Random) 09/20/2023 7:23 AM EDT 09/20/2023 7:41 AM EDT us Gavi Aldana DO LAB URINE ORDERABLES Final R esult [facility] [address] [place] [phone] * Colonoscopy (07/28/2021 2:52 PM EST) us Historical Provider HEALTH MAINTENANCE Final Result from Last 3 Months or Most Recently Relevant to Health Maintenance Insurance [facility] OPTIONS (O D-SNP) [address] [place] [phone] [address] [facility] [address] [place] [phone] Care Teams Photo Colorer Relationship Specialty Start Date End Date Gavi Aldana DO [address] [place] [phone] PCP - General Family Medicine 06/06/18
--- OUTSIDE RECORDS SUMMARY | 2024-10-03 09:42 | XMS_ITS | Clinical Summary ---
Author Organization 175 [facility] Address 175 [place] [address] Phone Care Team Providers Care See Supervisor Name Role Phone FlacoGavi humphreys Primary Care Provider [phone] Allergies No known active allergies Medications metFORMIN [...] SUPPLY MISC) Insulin Glargine (LANTUS SC) Active Active Problems Problem Noted Date Diagnosed Date DM type 2 (diabetes mellitus , type 2) (CMS/HCC V24, CMS/HCC V28) 07/28/2011 Hyperlipidemia with target LDL less than 70 07/08 Overview (05/02/2024): IMO update Hypertension 07/28/2011 Non-ischemic cardiomyopathy ([facility]/HCC V24, [facility]/HC C V28) 07/28/2011 Encounters Date Type Department Care Team Description 10/01/2024 9:00 AM EDT Office Visit Orthopedic Surgery [facility] [address] [phone] Kota De La Torre DPM Peripheral venous insufficiency (Primary Dx); Primary osteoarthritis of both feet; Dermatophytosis of nail; Type II diabetes mellitus with peripheral circulatory disorder (CMS/HCC V24, CMS/HCC V28); Diabetic mononeuropathy simplex (CMS/[facility] V24, CMS/[facility] V28); Pain in toe of right foot; Pain in toe of left foot from Last 3 Months Social History Tobacco [...] 10:00 AM EDT Consult Vascular Surgery - [place] [address] [phone] Tiffanie Holbrook MD 300 [facility] [address] [place] [address] 12/31/2024 9:15 AM EDT Office Visit Orthopedic Surgery [facility] [address] [phone] Kota De La Torre DPM [address] [address] Health Maintenance Due Date Last Done Comments [...] 06/15/2023 Diabetes: Blood Sugar Control Test (HGBA1C) 02/15/2025 08/15/2024, 05/28/2024 Diabetes: Annual GFR (Glomerular Filtration Rate) 09/04/2025 09/04/2024, 08/28/2024, 05/09/2024 Hypertension/CHF/CAD Annual BMP Blood Test 09/04/2025 09/04/2024, 08/28/2024, 05/09/2024 Cholesterol Screening (Lipid Panel) 09/19/2028 09/20/2023 [...] patient's age to complete this topic Insurance [facility] Member Subscriber Plan / Payer (Ef fective 2014-Present) Name:Candi Sanchez Relation to Subscriber:Self Name:Candi Sanchez Payer ID:[id number] Group ID:[id number] Type:Not on file Address: [place] [address] [address] [id number] Care Teams See Supervisor Relationship Specialty Start Date End Date Gavi Aldana DO [address] [place] [address] PCP - General Internal Medicine 10/27/11
--- OUTSIDE RECORDS SUMMARY | 2024-10-03 09:42 | XMS_ITS | Encounter Summary ---
Author Organization [employer] Address 75 [facility] 7t [place] [address] Care Team Providers Care Loan Workout Officer Name Role Phone FlacoGavi humphreys Primary Care Provider + [phone] Encounter Details Date Type Department Care Team (Late st Contact Info) Description 09/14/2023 Orders Only [facility] MEDICINE [address] [place] [address] ProviderMeliton MD Social History Tobacco Use Types [...] Description 10/12/2024 9:00 AM EDT Office Visit [facility] ADULT DENTAL [address] [place], [place] [phone] José Miguel Sy DDS [address] [place], [place] [phone] documented as of this encounter Procedures Procedure [...] documented as of this encounter Care Teams Loan Workout Officer Relationship Specialty Start Date End Date Gavi Aldana DO [address] [place] [address] PCP - General Family Medicine 06/06/18 documented as of this encounter
--- OUTSIDE RECORDS SUMMARY | 2024-10-03 09:42 | XMS_ITS | Data Portability ---
Author Organization [facility] [employer] [facility] Address [address] [place] [address] Assessment Encounter Date Assessment Date Assessment LastModified by Organization Details LastModified Time 03/17/2023 03/17/2023 As noted, we were called to see this patient regarding concerns of cough. Evaluation in the field was performed by my customer services supervisor colleague, as noted above, I provided real-time [...] SNOMED-CT Code Diagnosis ICD10 Code Diagnosis Note [id number] Amparo Marley MD Main - [address] [phone] 03/17/2023 19:40:50 03/17/2023 19:55:52 Health Concerns Section Related Observation LastModified by Organization Detai ls LastModified Time None Recorded Concern Status LastModified by Organization Details LastModified Time None Recorded Advance Directives Directive None Recorded Payers Encounter Date Sequence Insurance Name Policy Number Policy Ivy Covered Member ID Ivy Member ID Guarantor Name 03/17/2023 1 [facility] - DOS ON OR AFTER 2022 - DUAL ELIGIBLE - SNF OPTIONS AND ONE CARE (MEDICARE REPLACEMENT/ADV ANTAGE - HMO) Candi Sanchez [id number] Candi Sanchez Notes Date Note Type Note [...] CRC RN DID NOT NEED FURTHER INFO [facility] HPI: 3 weeks, sore throat throughout, cough throughout. dry cough. has never had something like this before. some sour taste, depending on what she ate. no abdominal, a little epigastric burning. Saw provider, got tessalon perles, initially helpful but then. 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 Amparo Marley MD 30 [facility],[address], [place], [address], [facility] 03/17/2023 19:55:51 OBGyn Episode No OBEpisode recorded.
--- OUTSIDE RECORDS SUMMARY | 2024-10-03 09:42 | XMS_ITS | Data Portability ---
Author Organization [place] - [facility], Allergy Address 100 [facility] 100 [place] [address] Care Team Providers Care Computer Compositor Name Role Phone MARTINEZ VIZCARRA Primary Care [...] copy of the audiogram, a list of [facility] hearing aid providers, and medical clearance [...] Organization Details Recorded Time Dizziness and giddiness 244965842 Active 2018 Dizziness and giddiness ; Note: Date Diagnosed : 01/25/2019 11:02 AM (R42) Not Available [facility] 4 02:39:47 Impacted cerumen of bilateral ears [id number] 06510 Active 2018 Impacted cerumen, bilateral ; Note: Date Diagnosed : 01/25/2019 11:05 AM (H61.23) Not Available [facility] 4 02:39:43 Bilateral tinnitus 85879086235 02 Active 2018 Tinnitus, bilateral ; Note: Date Diagnosed : 01/25/2019 11:24 AM (H93.13) Not Available [facility] 4 02:39:43 Cough 36082265 Active 2020 Cough, unspecifi ed; Note: Changed from R05 to R05.9 ( 4 9:23 AM) , Date Diagnosed : 02/11/2021 10:17 AM (R05) WYATT NAVA MD [address] [place] [address], [phone] , [facility] - [facility] 4 10:02:57 Benign paroxysma l positiona l vertigo 425184654 Active 2018 Benign paroxysma l vertigo, unspecifi ed ear; Note: Date Diagnosed : 01/25/2019 11:03 AM (H81.10) Not Available [facility] 4 02:39:53 Sensorine ural hearing loss of bilateral ears 205222008 Active 2018 Sensorine ural hearing loss, bilateral ; Note: Date Diagnosed : 01/25/2019 11:24 AM (H90.3) Not Available [facility] 4 02:39:48 Gastroeso phageal reflux disease without esophagit is 680703074 Active 2023 Gastro-es ophageal reflux disease without esophagit is; Note: Date Diagnosed : 08/25/2023 10:32 AM (K21.9) Not Available [facility] 02:39:48 Allergic rhinitis 55567042 Active 2023 Allergic rhinitis, unspecifi ed; Note: Date Diagnosed : 08/01/2023 10:25 AM (J30.9) Not Available [facility] 02:39:50 Nasal congestio n 05212157 Active 2023 Nasal congestio n; Note: Date Diagnosed : 08/01/2023 10:25 AM (R09.81) Not Available [facility] 02:39:53 Problem Notes None recorded. Procedures Surgical History Date Name Laterality Status Provider Name and Address Organization Details Recorded Time 07/30/19 25 Wax_DP completed WYATT NAVA MD [address] [place] [address], [phone], [facility] 07/30/2024 08:53:51 07/30/19 25 Air only Audio (20362) completed Nupur DIOP [address] [place] [address], [phone], [facility] 07/30/2024 09:17:09 07/30/19 25 Tympanometry (26384) completed Nupur DIOP [address] [place] [address], [phone], [facility] 07/30/2024 09:17:15 Imaging Results Imaging Date [...] mg tablet 04/27 completed Medicati on ID: [id number] B rand Name: atorvast atin Sen d Method: E-Prescr ibed Sub s Allowed: subs OK Speci al Instruct ion: TOME PRAVEEN TABLETA TODOS LOS D AL ACOSTARS E Medica tionGene ricName: atorvast atin Not Available Not Available Not Available Vitamin C 500 mg tablet active Medicati on ID: [id number] B rand Name: Vitamin C Send Method: [...] layed release 02/11 completed Medicati on ID: [id number] D uration Value: 90 Brand Name: aspirin Send Method: E-Prescr ibed Sub s Allowed: subs OK Speci al Instruct ion: TOME PRAVEEN TABLETA POR V?A ORAL TODOS LOS D? Med icationG enericNa me: aspirin Not Available Not Available Not Available tramadol 50 mg tablet active Medicati on ID: [id number] B rand Name: tramadol Send Method: E-Prescr ibed Sub s Allowed: subs OK Medic ationGen ericName : tramadol Not Available Not Available Not Available spironola ctone 25 mg tablet active Medicati on ID: [id number] B rand Name: spironol actone S end [...] 10 mg tablet active Medicati on ID: [id number] B rand Name: baclofen Send Method: E-Prescr ibed Sub s Allowed: subs OK Speci al Instruct ion: TAKE 1 TABLET BY MOUTH 3 TIMES EVERY DAY NEEDED FOR MUSCLE SPASM/PA IN [facility] ericName : baclofen Not Available Not Available Not Available benzonata te 100 mg capsule TAKE 1 CAPSULE BY MOUTH THREE TIMES DAILY NEEDED FOR COUGH active Not Available Not Available No t Available pantopraz ole 40 mg tablet,de layed release active Medicati on ID: [id number] B rand Name: pantopra zole Sen d Method: E-Prescr ibed Sub s Allowed: subs OK [facility] ericName : pantopra zole Not Available Not Available Not Available ferrous sulfate 325 mg (65 mg iron) tablet 04/27 completed Medicati on ID: [id number] B rand Name: ferrous sulfate Send Method: [...] mg tablet 02/11 completed Medicati on ID: [id number] D uration Value: 90 Brand Name: metoprol [...] (0.125 mg) tablet active Medicati on ID: [id number] B rand Name: digoxin Send Method: E-Prescr [...] mg capsule 02/11 completed Medicati on ID: [id number] B rand Name: gabapent in Send Method: E-Prescr ibed Sub s Allowed: subs OK Medic ationGen ericName : gabapent in Not Available Not Available Not Available Novolog U-100 Insulin aspart 100 unit/mL subcutane ous solution active Medicati on ID: [id number] B rand Name: Novolog U-100 Insulin aspart S end Method: E-Prescr ibed Sub s Allowed: subs OK Speci al Instruct ion: UP TO 100 UNITS VIA INSULIN PUMP SUBCUT DAILY Me dication GenericN norma: Novolog U-100 Insulin aspart Not Available Not Available Not Available nystatin 100,000 unit/gram topical powder 04/27 completed Medicati on ID: [id number] B rand Name: nystatin Send Method: E-Prescr ibed Sub s Allowed: subs OK Speci al Instruct ion: APLIQUE AL LIAT AFECTADA DOS VECES AL D A Medica tionGene ricName: nystatin Not Available Not Available Not Available albuterol sulfate HFA 90 mcg/actua tion aerosol inhaler 02/11 completed Medicati on ID: 160234 B rand Name: albutero l sulfate Send Method: E-Prescr ibed Sub s Allowed: subs OK Speci al Instruct ion: TOME DOS INHALACI ONES POR V A ORAL CADA CUATRO A SEIS HORAS CUANDO SEA NECESARI O Medica tionGene ricName: albutero l sulfate Not Available Not Available Not Available fluticaso ne propionat e 50 mcg/actua tion nasal spray,lalo pension active Medicati on ID: [id number] B rand Name: fluticas one propiona te [...] 40 mg tablet active Medicati on ID: [id number] B rand Name: valsarta n Send Method: [...] mg-50 mg tablet active Medicati on ID: [id number] B rand Name: Senna Plus Sen d [...] ion nasal spray active Medicati on ID: 225631 B rand Name: Narcan S end Method: [...] pen injector 02/11 completed Medicati on ID: [id number] D uration Value: 30 Brand Name: Ozempic [...] Available Not Available Not Available Dexcom G7 Sales And Service Engineer USE DIRECTED active Not Available Not Available [...] Updated DateTime 04/27/2024 149.86 cm 26.7 kg/m2 86404.19 g Susy Vera [place] - [facility] 04/27/2024 09:48:20 Date Recorded Body height Body mass index (BMI) Body weight Provider Name and Address Organization Details Last Updated DateTime 07/30/2024 149.86 cm 26.7 kg/m2 62124.19 g Nash Hammond [place] - [facility] 07/30/2024 08:41:37 Social History None recorded. Functional Status None recorded. Mental Status None recorded. Family History Nothing Reported. Medical History Condition Response Diabetes Y Gynecological HistoryNo gynecological history recorded. Obstetrics History GPAL:G 0 P 0 0 0 0 Past Encounters Encounter ID Performer Location Encounter Start Date Encounter Closed Date Diagnosis/Indication Diagnosis SNOMED-CT Code Diagnosis ICD10 Code Diagnosis Note [id number] WYATT NAVA MD [facility] [address] [address] 04/27/2024 09:29:27 04/27/2024 10:08:17 Cough 97890219 R05.9 Sensorineu ral hearing loss of bilateral ears 200740783 H90.3 [id number] WYATT NAVA MD [facility] [address] [address] 07/30/2024 08:36:37 07/30/2024 09:43:52 Sensorineural hearing loss of bilateral ears 050802292 H90.3 Audiologic al evaluation results: Right ear: [...] seal}} Impacted c erumen of bilateral ears [id number] 765394 H61.23 Ears were meticulous ly cleaned bilaterall [...] Guarantor Name 04/27/2024 2 [employer] - [facility] [place] (MEDICARE REPLACEMENT/ADV ANTAGE - HMO) Candi Sanchez [id number] Candi Sanchez 07/30/2024 1 [facility] - DOS ON OR AFTER 2022 - JAIL OPTIONS (MEDICARE REPLACEMENT/ADV ANTAGE - HMO) Candi Sanchez [id number] Candi Sanchez Notes Date Note Type Note [...] 2 pills. Rx famotidine WYATT NAVA MD [address] [place] [address],[place] [address], [place], [address], [place] - [facility] 04/27/2024 10:06:17 07/30/2024 text/html IPad - Spanishhe aring lossdid not pursue hearing aids in past year 08/01/23 Dr Kern audiomild sloping to severe B SNHLcleared for B HAE PV 04/27/24 Iris - cough - improved with meds from pulscotty NAVA MD [address] [place] [address], [place], [address], [facility] - [facility] 07/30/2024 09:42:27 OBGyn Episode No OBEpisode recorded.
--- OUTSIDE RECORDS SUMMARY | 2024-10-03 09:42 | XMS_ITS | Encounter Summary ---
Author Organization [employer] [facility] Address [address] [facility] 7t [place] [address] Care Team Providers Care Foster Parent Name Role Phone Gavi Aldana DO Primary Care Provider + [phone] Encounter Details Date Type Department Care Team (Late st Contact Info) Description 07/22/2022 Orders Only [facility] MED & PEDS [address] [place] [address] Gavi Duarte LPN Social History Tobacco Use [...] Description 10/12/2024 9:00 AM EDT Office Visit [facility] ADULT DENTAL [address] [place] [address] José Miguel Sy DDS [address] [place] [address] documented as of this encounter Visit Diagnoses Not on filedocumented in this encounter Care Teams Foster Parent Relationship Specialty Start Date End Date Gavi Aldana DO [address] [place] [address] PCP - General Family Medicine 06/06/18 documented as of this encounter
--- NOTE | 2024-10-03 09:51 | HO.NEPHOV_ITS ---
Vital Signs 10/03/24 09:52 Height 5 ft 3 in Weight 138 lb 2 oz BMI 24.5 BP 110/60 Blood Pressure Location Rt brachial Position Sitting Pulse 71 Pulse Source Pulse Oximeter Pulse Oximetry (%) 98 Oxygen Delivery Method Room Air Intake Visit Reasons: R/s from 09/05/24- Conf Germination Testing Manager Required: Yes Germination Testing Manager Language: Worldwide Chief Creative Officer Services: Germination Testing Manager Present Germination Testing Manager Name: Guy [id number] Information Interpreted: clinical only Accompanied by: Other Relationship Allergies No Known Allergies Allergy (Verified 10/03/24 09:52) HPI Comments Details: I had the pleasure of seeing Candi in follow up for proteinuria. She is a longstanding diabetic with poor glycemic control. She is followed by endocrinology. She has history of hypertension and nonischemic cardiomyopathy. She does not have any chest pain, shortness of breath, paroxysmal nocturnal dyspnea, orthopnea, urinary symptoms, hematuria, sensorineural deafness, orthostatic symptoms, epistaxis, hemoptysis, photosensitivity, joint swellings, skin rashes. She is known to have rheumatoid arthritis and is on methotrexate. She has been taking omeprazole for a long time. Her blood pressure has been at goal. She denies taking excessive nonsteroidal anti-inflammatories. She is on Entresto. Her renal functions had been normal and stable at baseline. She does not have any new bone or back pain. title insurance sales representative was used during this encounter. Family member was also physically present at that time. 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 Mother No problems noted. Maternal Aunt Diabetes mellitus Social History Household Members: None Housing: Apartment Are you a primary rn home care to a significant other at home: No Do you presently have visiting nurse or other home services: Yes (telephone) Alcohol intake: never Patient Tobacco Use Status: Never used Tobacco service: No Current occupational status: retired Current occupation: rt handed Review of Systems Const All systems reviewed & are unremarkable except as noted in HPI and below Physical Exam Vital Signs: Last Vital Signs Pulse 71 10/03/24 09:52 BP 110/60 10/03/24 09:52 Pulse Ox 98 10/03/24 09:52 Oxygen Delivery Method Room Air 10/03/24 09:52 BMI result Body Mass Index 24.5 Const General: comfortable and no acute distress Orientation/consciousness: patient oriented x3 HEENT Head: Yes normocephalic Mouth: Normal oral and palatal mucosa present Eyes EOM: EOMs intact bilaterally Neck Neck: Yes supple Resp Auscultation: clear to auscultation bilaterally Cardio Jugular venous distension: no JVD Rate: regular rate GI Palpation (GI): Soft to palpation Auscultation: normal bowel sounds General: Yes no CVA tenderness Back/Spine/Pelvis Back: no CVA tenderness Skin General skin exam: no rashes or lesions noted Neuro General: patient oriented x3 and moves all extremities Extrem General: Yes no pedal edema Results Reviewed Nephrology Results: Hgb 10.8 g/dl (12.0-16.0) L 09/04/24 WBC 6.0 X10*3/uL (4.8-10.8) 09/04/24 Plt Count 158 X10*3/uL (160-400) L 09/04/24 Sodium 141 mmol/L (135-145) 09/04/24 Potassium 3.7 mmol/L (3.3-5.1) 09/04/24 Chloride 110 mmol/L (96-108) H 09/04/24 Carbon Dioxide 29 mmol/L (22-29) 09/04/24 BUN 14 mg/dL (9-16) 09/04/24 Creatinine 0.76 mg/dL (0.5-1.4) 09/04/24 Calcium 9.3 mg/dL (8.4-10.2) 09/04/24 Assessment & Plan Assessment & Plan (1) Proteinuria: Code(s): R80.9 - Proteinuria, unspecified Category: Medical Qualifiers: Proteinuria type: persistent Qualified Code(s): R80.1 - Persistent pr oteinuria, unspecified Plan Candi has proteinuria for some time. It is most likely due to diabetic nephropathy. Even though differential diagnosis are quite broad, to unlikely to be anything other than diabetic nephropathy. She has edema. I increased her lasix to 40 mg daily which can be increased to 40 mg bid based on clinical response. There is no indication for any renal biopsy now. Her blood pressure needs to be maintain a goal. Her blood sugar control needs to be better. She is a great candidate for SGLT2 inhibitor. Biopsying her kidney can be challenging and she is on anticoagulation. She should avoid nonsteroidal anti- inflammatories. She is tolerating Entresto very well. I did not make any other medication changes today. All these have been explained in detail. Answered all questions. Follow-up appointment given Orders: Orders Electrolytes 3 Weeks R80.1 - Persistent proteinuria, unspecified Blood Urea Nitrogen 3 Weeks R80.1 - Persistent proteinuria, unspecified Creatinine 3 Weeks R80.1 - Persistent proteinuria, unspecified Coding Level of Care Code Est Pt Level 4 (45874) Diagnoses Persistent proteinuria R80.1 Proteinuria type: persistent
[2024-10-03 09:52] VITALS: BP 110/60; PULSE 71; O2SAT 98; BMI 24.5
== END 2024-10-03 10:21 | disposition home or self-care (01) ==
LOC: HO.HKA 09:10
PROVIDERS: PCP Family Medicine; Visit Provider Internal Medicine Nephrology
DX: R80.1 Persistent proteinuria, unspecified (principal)
CPT/HCPCS: 99214

== ENCOUNTER → 2024-10-03 09:09 | Outpatient (BNVA) | payer OTHER, SELFPAY | PROVIDERS: PCP Family Medicine; Visit Provider Internal Medicine Nephrology | DX: R80.1 Persistent proteinuria, unspecified (principal) | CPT/HCPCS: 99212 ==

== ENCOUNTER 2024-10-09 08:21 | Outpatient (REF) | payer OTHER, SELFPAY ==
--- NOTE | ~2024-10-09 | CT_ITS ---
CLINICAL HISTORY: R91.8 - Other nonspecific abnormal finding of lung field CT chest without contrast Comparison: CT/IL/SR - CT CHEST WO IV CON - 08/16/24 07:[address]/IL/SR - CT CHEST WO IV CON - 10/13/23 09:[address]/[place]/SR - CT CHEST WO IV CON - 02/03/23 10:58 EDT Findings: A cardiac device is present with leads in the right atrium, right ventricle and coronary sinus. There is cardiomegaly. There is a small pericardial effusion. The visualized thyroid and mediastinum are unremarkable. Pulmonary nodules previously noted are again present and unchanged. Area of ground-glass opacification left lower lobe represents scarring/atelectasis and is also unchanged. No new nodules are noted. The upper abdomen is unremarkable. The bones are intact. A calcification is seen within the neural canal at the level of T5-T6, unchanged. IMPRESSION: 1. No significant interval changes. Stable cardiomegaly with small pericardial effusion. Stable pulmonary nodules. No further follow-up is necessary. Fleischner 2017 Guidelines were utilized to develop follow up recommendations for this patient. The full article can be viewed at: https://goo.gl/emmKAYLAK Follow up strategies in solid nodules vary depending on patient risk assessment, with patient's classified as high or low risk. Low risk is associated with young age, smaller nodule size, regular margins, and location in an area other than the upper lobe. High risk factors include older age, heavy smoking, emphysema, carcinogen exposure, larger nodule size, irregular or spiculated margins, and upper lobe location. Nodule size and morphology are the dominant factors. Follow up of subsolid nodules (including ground glass and part solid opacities) is different when compared to solid nodules based on risk of malignancy and a longer doubling time in this group. Therefore when follow up is recommended, it is for a longer interval. Also in this group, recommendations may vary depending on a solitary lesion versus multiplicity of lesions. A calculator of estimated risk is available at: https://goo.gl/Crystal ##PFU## This document has been electronically signed by: Josué Burris MD on 10/10/2024 12:21:37
--- OUTSIDE RECORDS SUMMARY | 2024-10-09 08:37 | XMS_ITS | Data Portability ---
Author Organization [place] - [facility], Allergy Address [address] [place] [address] Care Team Providers Care Director Of Graduate Medical Education Name Role Phone MARTINEZ VIZCARRA Primary Care [...] of the audiogram, a list of [facility] hearing aid providers, and medical clearance [...] Organization Details Recorded Time Dizziness and giddiness 792492972 Active 2018 Dizziness and giddiness ; Note: Date Diagnosed : 01/25/2019 11:02 AM (R42) Not Available [facility] 4 02:39:47 Impacted cerumen of bilateral ears 15707598946 15656 Active 2018 Impacted cerumen, bilateral ; Note: Date Diagnosed : 01/25/2019 11:05 AM (H61.23) Not Available [facility] 4 02:39:43 Bilateral tinnitus 47678328631 02 Active 2018 Tinnitus, bilateral ; Note: Date Diagnosed : 01/25/2019 11:24 AM (H93.13) Not Available [facility] 4 02:39:43 Cough 30749180 Active 2020 Cough, unspecifi ed; Note: Changed from R05 to R05.9 ( 4 9:23 AM) , Date Diagnosed : 02/11/2021 10:17 AM (R05) WYATT NAVA MD [address] [place] [address], [phone] , [facility] - [facility] 4 10:02:57 Benign paroxysma l positiona l vertigo 285963072 Active 2018 Benign paroxysma l vertigo, unspecifi ed ear; Note: Date Diagnosed : 01/25/2019 11:03 AM (H81.10) Not Available [facility] 4 02:39:53 Sensorine ural hearing loss of bilateral ears 121725229 Active 2018 Sensorine ural hearing loss, bilateral ; Note: Date Diagnosed : 01/25/2019 11:24 AM (H90.3) Not Available [facility] 4 02:39:48 Gastroeso phageal reflux disease without esophagit is 665446869 Active 2023 Gastro-es ophageal reflux disease without esophagit is; Note: Date Diagnosed : 08/25/2023 10:32 AM (K21.9) Not Available [facility] 02:39:48 Allergic rhinitis 35372604 Active 2023 Allergic rhinitis, unspecifi ed; Note: Date Diagnosed : 08/01/2023 10:25 AM (J30.9) Not Available [facility] 02:39:50 Nasal congestio n 71370763 Active 2023 Nasal congestio n; Note: Date Diagnosed : 08/01/2023 10:25 AM (R09.81) Not Available [facility] 02:39:53 Problem Notes None recorded. Procedures Surgical History Date Name Laterality Status Provider Name and Address Organization Details Recorded Time 07/30/19 25 Wax_DP completed WYATT NAVA MD [address] [place] [address], [phone], [facility] 07/30/2024 08:53:51 07/30/19 25 Air only Audio - 66801 completed [employer]ENA [employer]ES [address], [address], [facility] 07/30/2024 09:17:09 07/30/19 25 Tympanometry - 72916 completed JENA SALES [address], [address], [facility] 07/30/2024 09:17:15 Imaging Results Imaging Date Name Status LastModified by Organ [facility] Details LastModified Time 07/30/2024 audiogram completed BARCODE [...] mg tablet 04/27 completed Medicati on ID: [id number] B rand Name: atorvast atin Sen d Method: E-Prescr ibed Sub s Allowed: subs OK Speci al Instruct ion: TOME PRAVEEN TABLETA TODOS LOS D AL ACOSTARS E Medica tionGene ricName: atorvast atin Not Available Not Available Not Available Vitamin C 500 mg tablet active Medicati on ID: [id number] B rand Name: Vitamin C Send Method: [...] layed release 02/11 completed Medicati on ID: [id number] D uration Value: 90 Brand Name: aspirin Send Method: E-Prescr ibed Sub s Allowed: subs OK Speci al Instruct ion: TOME PRAVEEN TABLETA POR V?A ORAL TODOS LOS D? Med icationG enericNa me: aspirin Not Available Not Available Not Available tramadol 50 mg tablet active Medicati on ID: [id number] B rand Name: tramadol Send Method: E-Prescr ibed Sub s Allowed: subs OK Medic ationGen ericName : tramadol Not Available Not Available Not Available spironola ctone 25 mg tablet active Medicati on ID: [id number] B rand Name: spironol actone S end [...] 10 mg tablet active Medicati on ID: [id number] B rand Name: baclofen Send Method: E-Prescr ibed Sub s Allowed: subs OK Speci al Instruct ion: TAKE 1 TABLET BY MOUTH 3 TIMES EVERY DAY NEEDED FOR MUSCLE SPASM/PA IN [facility] ericName : baclofen Not Available Not Available Not Available benzonata te 100 mg capsule TAKE 1 CAPSULE BY MOUTH THREE TIMES DAILY NEEDED FOR COUGH active Not Available Not Available No t Available pantopraz ole 40 mg tablet,de layed release active Medicati on ID: [id number] B rand Name: pantopra zole Sen d Method: E-Prescr ibed Sub s Allowed: subs OK [facility] ericName : pantopra zole Not Available Not Available Not Available ferrous sulfate 325 mg (65 mg iron) tablet 04/27 completed Medicati on ID: [id number] B rand Name: ferrous sulfate Send Method: [...] mg tablet 02/11 completed Medicati on ID: [id number] D uration Value: 90 Brand Name: metoprol [...] (0.125 mg) tablet active Medicati on ID: [id number] B rand Name: digoxin Send Method: E-Prescr [...] mg capsule 02/11 completed Medicati on ID: [id number] B rand Name: gabapent in Send Method: E-Prescr ibed Sub s Allowed: subs OK Medic ationGen ericName : gabapent in Not Available Not Available Not Available Novolog U-100 Insulin aspart 100 unit/mL subcutane ous solution active Medicati on ID: [id number] B rand Name: Novolog U-100 Insulin aspart S end Method: E-Prescr ibed Sub s Allowed: subs OK Speci al Instruct ion: UP TO 100 UNITS VIA INSULIN PUMP SUBCUT DAILY Me dication GenericN norma: Novolog U-100 Insulin aspart Not Available Not Available Not Available nystatin 100,000 unit/gram topical powder 04/27 completed Medicati on ID: [id number] B rand Name: nystatin Send Method: E-Prescr ibed Sub s Allowed: subs OK Speci al Instruct ion: APLIQUE AL LIAT AFECTADA DOS VECES AL D A Medica tionGene ricName: nystatin Not Available Not Available Not Available albuterol sulfate HFA 90 mcg/actua tion aerosol inhaler 02/11 completed Medicati on ID: [id number] B rand Name: albutero l sulfate Send Method: E-Prescr ibed Sub s Allowed: subs OK Speci al Instruct ion: TOME DOS INHALACI ONES POR V A ORAL CADA CUATRO A SEIS HORAS CUANDO SEA NECESARI O Medica tionGene ricName: albutero l sulfate Not Available Not Available Not Available fluticaso ne propionat e 50 mcg/actua tion nasal spray,lalo pension active Medicati on ID: [id number] B rand Name: fluticas one propiona te Send Method: E-Prescr ibed Sub s Allowed: subs OK Speci al Instruct ion: USE 2 SPRAYS IN EACH NOSTRIL ONCE A DAY NEEDED M khari nGeneric Name: fluticas one propiona te Not [...] 40 mg tablet active Medicati on ID: 557653 B rand Name: valsarta n Send Method: [...] mg-50 mg tablet active Medicati on ID: [id number] B rand Name: Senna Plus Sen d [...] ion nasal spray active Medicati on ID: [id number] B rand Name: Narcan S end Method: [...] pen injector 02/11 completed Medicati on ID: [id number] D uration Value: 30 Brand Name: Ozempic [...] Available Not Available Not Available Dexcom G7 Employment Law Specialist USE DIRECTED active Not Available Not Available [...] Updated DateTime 04/27/2024 149.86 cm 26.7 kg/m2 16807.19 g Susy Vera [place] - [facility] 04/27/2024 09:48:20 Date Recorded Body height Body mass index (BMI) Body weight Provider Name and Address Organization Details Last Updated DateTime 07/30/2024 149.86 cm 26.7 kg/m2 76975.19 g Nash Manish [place] - [facility] 07/30/2024 08:41:37 Social History None recorded. Functional Status None recorded. Mental Status None recorded. Family History Nothing Reported. Medical History Condition Response Diabetes Y Gynecological HistoryNo gynecological history recorded. Obstetrics History GPAL:G 0 P 0 0 0 0 Past Encounters Encounter ID Performer Location Encounter Start Date Encounter Closed Date Diagnosis/Indication Diagnosis SNOMED-CT Code Diagnosis ICD10 Code Diagnosis Note [id number] WYATT NAVA MD [facility] [address] [address] 04/27/2024 09:29:27 04/27/2024 10:08:17 Cough 40297292 R05.9 Sensorineu ral hearing loss of bilateral ears 851793297 H90.3 [id number] WYATT NAVA MD [facility] [address] [address] 07/30/2024 08:36:37 07/30/2024 09:43:52 Sensorineural hearing loss of bilateral ears 127509552 H90.3 Audiologic al evaluation results: Right ear: [...] seal}} Impacted c erumen of bilateral ears 1167869655 482509 H61.23 Ears were meticulous ly cleaned bilaterall [...] Guarantor Name 04/27/2024 2 [facility] [place] ([place]IC[place]PL[place]/ADV ANTAGE - HMO) Candi Sanchez [id number] Candi Sanchez 07/30/[address] [facility] - DOS ON OR AFTER 2022 - [employer] (MEDICARE REPLACEMENT/ADV ANTAGE - HMO) Canid Sanchez [id number] Candi Sanchez Notes Date Note Type Note [...] 2 pills. Rx famotidine WYATT NAVA MD [address] [place] [address],[place] [address], [place], [address], [place] - [facility] 04/27/2024 10:06:17 07/30/2024 text/html IPad - Spanishhe aring lossdid not pursue hearing aids in past year 08/01/23 Dr Kern audiomild sloping to severe B SNHLcleared for B HAE PV 04/27/24 Iris - cough - improved with meds from pulscotty NAVA MD [address] [place] [address], [place], [address], [facility] - [facility] 07/30/2024 09:42:27 OBGyn Episode No OBEpisode recorded.
--- OUTSIDE RECORDS SUMMARY | 2024-10-09 08:37 | XMS_ITS | Data Portability ---
Author Organization [employer] [place] [employer] Address [address] [place] [address] Assessment Encounter Date Assessment Date Assessment LastModified by Organization Details LastModified Time 03/17/2023 03/17/2023 As noted, we were called to see this patient regarding concerns of cough. Evaluation in the field was performed by my rotary helper colleague, as noted above, I provided real-time [...] SNOMED-CT Code Diagnosis ICD10 Code Diagnosis Note [id number] Amparo Marley MD Main - [address] [address] 03/17/2023 19:40:50 03/17/2023 19:55:52 Health Concerns Section Related Observation LastModified by Organization Detai ls LastModified Time None Recorded Concern Status LastModified by Organization Details LastModified Time None Recorded Advance Directives Directive None Recorded Payers Encounter Date Sequence Insurance Name Policy Number Policy Ivy Covered Member ID Ivy Member ID Guarantor Name 03/17/2023 1 [facility] - DOS ON OR AFTER 2022 - DUAL ELIGIBLE - [facility] OPTIONS AND [employer] (MEDICARE REPLACEMENT/ADV ANTAGE - HMO) Candi Sanchez [id number] Candi Sanchez Notes Date Note Type Note [...] CRC RN DID NOT NEED FURTHER INFO [facility] HPI: 3 weeks, sore throat throughout, cough throughout. dry cough. has never had something like this before. some sour taste, depending on what she ate. no abdominal, a little epigastric burning. Saw provider, got tessalon perles, initially helpful but then. 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 Amparo Marley MD [address] [facility],[address], [place], [address], [employer] 03/17/2023 19:55:51 OBGyn Episode No OBEpisode recorded.
--- OUTSIDE RECORDS SUMMARY | 2024-10-09 08:37 | XMS_ITS | Clinical Summary ---
Author Organization [address] [facility] Address [address] [place] [address] Phone Care Team Providers Care Supervisor Firearms Name Role Phone FlacoGavi humphreys Primary Care Provider [phone] Allergies No known active allergies Medications metFORMIN [...] (05/02/2024): IMO update Hypertension 07/28/2011 Non-ischemic cardiomyopathy ([facility]/HCC V24, [facility]/HC C V28) 07/28/2011 Encounters Date Type Department Care Team Description 10/01/2024 9:00 AM EDT Office Visit Orthopedic Surgery [facility] [address] [phone] Kota De La Torre DPM Peripheral venous insufficiency (Primary Dx); Primary osteoarthritis of both feet; Dermatophytosis of nail; Type II diabetes mellitus with peripheral circulatory disorder (CMS/HCC V24, CMS/HCC V28); Diabetic mononeuropathy simplex (CMS/[facility] V24, CMS/[facility] V28); Pain in toe of right foot; [...] 10:00 AM EDT Consult Vascular Surgery - [place] [address] [address] Tiffanie Holbrook MD 300 [facility] [address] [place] [address] 12/31/2024 9:15 AM EDT Office Visit Orthopedic Surgery [facility] [address] [phone] Kota De La Torre DPM [address] [address] Health Maintenance Due Date Last Done Comments [...] patient's age to complete this topic Insurance [facility] Member Subscriber Plan / Payer (Ef fective 2014-Present) Name:Candi Sanchez Relation to Subscriber:Self Name:Candi Sanchez Payer ID:[id number] Group ID:[id number] Type:Not on file Address: [place] [address] [place] [address] Care Teams Supervisor Firearms Relationship Specialty Start Date End Date Gavi Aldana DO [address] [place] [address] PCP - General Internal Medicine 10/27/11
== END 2024-10-09 08:22 | disposition home or self-care (01) ==
LOC: HO.CT 08:21
PROVIDERS: PCP Family Medicine; Visit Provider Internal Medicine Pulmonary Disease
DX: R91.8 Other nonspecific abnormal finding of lung field (principal)
CPT/HCPCS: 71250

== ENCOUNTER → 2024-10-09 08:23 | Outpatient (BNV) | payer OTHER, SELFPAY | PROVIDERS: PCP Family Medicine; Visit Provider Radiology Diagnostic Radiology | DX: I51.7 Cardiomegaly (principal); I31.39 Other pericardial effusion (noninflammatory); R91.8 Other nonspecific abnormal finding of lung field | CPT/HCPCS: 71250 ==

== ENCOUNTER 2024-10-10 09:04 | Outpatient (REF) | payer OTHER, SELFPAY ==
--- NOTE | ~2024-10-10 | US_ITS ---
EXAMINATION: US RETROPERITONEAL COMPLETE (RENAL) CLINICAL INFORMATION: Hematuria.. COMPARISON: 03/06/2024 renal ultrasound. 07/02/2021 abdominal ultrasound. 08/01/15 renal ultrasound. TECHNIQUE: Real-time imaging of the kidneys and bladder. FINDINGS: RIGHT KIDNEY: 11.0 x 4.3 x 5.9 cm (SAG x AP x TRV). The kidney is normal in size, contour, and echogenicity. Renal cortical thickness is normal. No calculi or focal parenchymal lesions. No hydronephrosis. LEFT KIDNEY: 10.6 x 4.0 x 4.0 cm (SAG x AP x TRV). The kidney is normal in size, contour, and echogenicity. Renal cortical thickness is normal. No calculi or focal parenchymal lesions. No hydronephrosis. Tiny focus of fluid abutting the lower pole, doubtful clinical significance. This was seen previously. BLADDER: Well distended and normal. Bilateral ureteral jets are demonstrated. Prevoid bladder volume is 185 mL. Postvoid bladder volume is 17 mL. US/US retroperitoneal comp IMPRESSION: Essentially normal examination of the kidneys and bladder.. Electronically signed by: Nam Killian MD 10/10/2024 10:41 AM EDT
--- OUTSIDE RECORDS SUMMARY | 2024-10-10 09:34 | XMS_ITS | Encounter Summary ---
Author Organization [employer] Address [address] [facility] [address] [place] [address] Care Team Providers Care Director Of Radio Services Name Role Phone Gavi Aldana DO Primary Care Provider [phone] Encounter Details Date Type Department Care Team (Latest Contact Info) Description 03/10/2022 Abstract [facility] CONVERSIONS Dental, Provider, DDS Social History [...] Description 10/12/2024 9:00 AM EDT Office Visit [facility] ADULT DENTAL [address] [place] [address] José Miguel Sy DDS [address] [place] [address] documented as of this encounter Visit Diagnoses Not on filedocumented in this encounter Care Teams Director Of Radio Services Relationship Specialty Start Date End Date Gavi Aldana DO [address] [place] [address] PCP - General Family Medicine 06/06/18 documented as of this encounter
--- OUTSIDE RECORDS SUMMARY | 2024-10-10 09:35 | XMS_ITS | Encounter Summary ---
Author Organization [employer] Address [address] [facility] [address] [place] [address] Care Team Providers Care Solutions Analyst Name Role Phone Gavi Aldana DO Primary Care Provider [phone] Encounter Details Date Type Department Care Team (Latest Contact Info) Description 09/25/2018 Abstract [facility] CONVERSIONS Dental, Provider, DDS Social [...] Description 10/12/2024 9:00 AM EDT Office Visit [facility] ADULT DENTAL [address] [place] [address] José Miguel Sy DDS [address] [place] [address] documented as of this encounter Visit Diagnoses Not on filedocumented in this encounter Care Teams Solutions Analyst Relationship Specialty Start Date End Date Gavi Aldana DO [address] [place] [address] PCP - General Family Medicine 06/06/18 documented as of this encounter
--- OUTSIDE RECORDS SUMMARY | 2024-10-10 09:35 | XMS_ITS | Clinical Summary ---
Author Organization [employer] Address [address] [place] [address] Care Team Providers Care Filter Press Operator Name Role Phone Gavi Aldana DO Primary Care Provider + [phone] Allergies Active Allergy Reactions Criticality Noted Date [...] FOR COUGH 30 capsule 023 Active Nystop 108609 UNIT/GM powder APPLY TO THE AFFECTED AREA(S) [...] DAILY Active Lantus SoloStar 100 UNIT/ML pen Active BD Pen Needle Thania U/F 32G [...] 25 mg by mouth in the morning. Active gabapentin (Neurontin) 100 MG capsuleIndica tions:Other chronic pain TAKE 2 CAPSULES BY MOUTH EVERY EVENING 60 capsule 1 023 Active UltiCare Short Pen [place] 31G X 8 MM misc USE DIRECTED [...] HOURS NEEDED FOR MILD PAIN 30 tablet 024 Active amitriptyline (Elavil) 10 MG tablet Take [...] reports she was exposed to Covid-19 at [employer] but she always wears a mask Physical exam wnl Rapid strep, Covid and Flu negative Plan: supportive measures, recommended Tylenol prn, pt to test at home if symptoms do not improve or worsen and notify us if positive or worsening of symptoms Pt verbalized understanding Encounters Date Type Department Care Team Description 09/25/2024 Refill [facility] CHC MED & PEDS [address] [place], [place] [phone] Gavi Aldana DO Acute pain of right shoulder 09/10/2024 Telephone [facility] MEDICINE [address] [place] [phone] Gavi Aldana DO Durable Medical Equipment (DME Script Recliner Chair) 09/04/2024 Orders Only GENERIC EXTERNAL DATA DEPARTMENT Provider, Generic External Data 08/29/2024 Telephone [facility] MEDICINE [address] [place] [phone] Gavi Aldana DO Prior Auth Prescription 08/28/2024 9:00 AM EDT Office Visit [facility] ADULT DENTAL [address] [place] [phone] José Miguel Sy DDS Dental caries (Primary Dx) 08/28/2024 Orders Only [facility] MEDICINE [address] [place] [phone] Gavi Aldana DO Microscopic hematuria (Primary Dx) 08/24/[address] [address] Gavi Aldana DO Results 08/24/[address] [phone] Gavi Aldana DO Durable Medical Equipment 08/23/2024 Orders Only [facility] External Provider, [facility] 08/15/2024 8:40 AM EDT Office Visit [facility] WALK-IN CENTER [address] [place] [address] Veena White NP Acute pain of right [...] Description 10/12/2024 9:00 AM EDT Office Visit [facility] ADULT DENTAL [address] [place] [address] José Miguel Sy DDS [address] [place] [address] Health Maintenance Due Date Last Done Comments [...] Screening 10/23/2024 10/24/2023 Diabetes: Hemoglobin A1C 11/15/2024 025, 05/28/2024, 02/28/2024, Additional history exists Dental Oral Exam 01/02/2025 07/04/2024, 10/2021, 09/25/2018, Additional history exists Dental X-Ray: Full Mouth 03/11/2025 03/10/2022, 12/04 Alcohol/Substance Use Screening 05/28/2025 05/28/2024 Dental X-Ray: Bitewings 07/05/2025 07/04/19, 03/10/2022, 11/16/2017, Additional history exists Tobacco Screening [...] WHOLE BLOOD Routine 07/17/2024 9:33 AM EST BITEWINGS - 4 RADIOGRAPHIC IMAGES Routine 07/04/2024 9:00 AM EST Dental caries into pulp Dental calculus Localized gingival recession Dental caries Missing teeth, acquired COMPREHENSIVE ORAL EVALUATION - NEW OR ESTABLISHED PATIENT Routine 07/04/2024 9:00 AM EST LIPID PANEL, STANDARD Routine 09/20/2023 7:27 AM EDT Type 2 diabetes mellitus without complication, with long-term current use of insulin ([facility]) ALBUMIN, RANDOM URINE W/CREATININE Routine 09/20/2023 7:23 AM EDT Type 2 diabetes mellitus without complication, with long-term current use of insulin ([facility]) PROPHYLAXIS - ADULT Routine 03/10/2022 1 2:00 AM EDT INTRAORAL - COMPLETE SERIES OF RADIOGRAPHIC IMAGES Routine 03/10/2022 12:00 AM EDT HM COLONOSCOPY Routine 07/28/2021 2:52 PM EST from Last 3 Months or Most Recently Relevant to Health Maintenance Results * T-SPOT??.TB (09/04/2024 9:02 AM EDT) [facility] T Spot TB Negative Negative [facility] Comment:A negative test resu lt [...] as aquantitative test. TS PANEL A 0 [facility] TS PANEL B 0 [facility] Negative Control Passed [facility] Positive Control Passed [facility] Comment:For additional infor jared, please refer tohttp://education.[employer]/faq/AWJ720(This link is being provided for informational/educational purposes only.)THIS TEST WAS PERFORMED AT:[employer] [id number] [place] [address]XXBHQQOAMAIRANI CANTU MD,PHD 09/04/2024 9:02 AM EDT 09/04/2024 9:02 AM EDT us Generic External Data Provider LAB BLOOD ORDERAB LES Final Result [facility] [address] [place] [phone] * Hepatitis Panel, General (09/04/2024 9:02 AM EDT) Hepatitis A IgM Nonreactive Nonreactive [facility] Comment:IgM antibodies to MCCANN V not detected; does not exclude earlyacute or recovered HAV infection. ~Hepatitis B Surface Antibody REACTIVE Nonreactive [facility] Comment:REACTIVE: > 11.99 mI U/mL Hepatitis B Core Antibody Nonreactive Nonreactive [facility] Hepatitis C Antibody Nonreactive Nonreactive [facility] Comment:Antibodies to HCV no t detected; does not exclude early acuteHCV infection. Hepatitis B Surface Ag Negative Negative [facility] 09/04/2024 9:02 AM EDT 09/04/2024 9:02 AM EDT us Generic External Data Provider LAB BLOOD ORDERAB LES Final Result [facility] [address], [place] [phone] * (ABNORMAL) CBC auto differential (09/04/2024 9:02 AM EDT) White Blood Count 6.0 4.8 - 10.8 X10*3/uL [facility] Red Blood Count 4.63 4.20 - 5.50 X10*6/uL [facility] Hemoglobin 10.8(L) 12.0 - 16.0 g/dl [facility] Hematocrit 35.1(L) 37.0 - 47.0 % [facility] Mean Corpuscular Volume 75.8(L) 80.0 - 98.0 fL [facility] Mean Corpuscular Hemoglobin 23.3(L) 27.0 - 33.0 pg [facility] Mean Corpuscular HGB Conc 30.8(L) 31.0 - 35.0 g/dl [facility] Red Cell Distribution Width 13.8 11.0 - 16.0 % [facility] Platelet Count 158(L) 160 - 400 X10*3/uL [facility] Mean Platelet Volume 13.0(H) 9.4 - 12.3 fL [facility] Neutrophils Percent Auto 69.9 45 - 73 % [facility] Imm Gran Pct Auto 0.7(H) 0.0 - 0.4 % [facility] Lymphocytes Percent Auto 16.4(L) 20 - 40 % [facility] Monocytes Percent Auto 8.5 2 - 11 % [facility] Eosinophils Percent Auto 3.8 0 - 4 % [facility] Basophils Percent Auto 0.7 0 - 2 % [facility] NRBC Pct Auto 0.0 0.0 - 0.2 /100WBC [facility] Neutrophils Absolute Auto 4.2 2.0 - 8.3 x10*3/uL [facility] Imm Gran Abs Auto 0.04(H) 0.00 - 0.03 X10*3/uL [facility] Lymphocytes Absolute Auto 1.0(L) 1.2 - 4.9 X10*3/uL [facility] Monocytes Absolute Auto 0.5 0.1 - 1.2 X10*3/uL [facility] Eosinophils Absolute Auto 0.2 0.0 - 0.4 X10*3/uL [facility] Basophils Absolute Auto 0.0 0.0 - 0.2 X10*3/uL [facility] NRBC Abs Auto 0.000 0.0 - 0.012 X10*3/uL [facility] 09/04/2024 9:02 AM EDT 09/04/2024 9:02 AM EDT Generic External Data Provider LAB BLOOD ORDERAB LES Final Result Performing Organization Address [facility] Co de Phone Number [facility] [address] [place] [phone] * (ABNORMAL) Sed Rate by Modified Austinren (09/04/2024 9:02 AM EDT) Erythrocyte Sedimentation Rate 34(H) 0 - 20 MM/HR [facility] Comment:Patients with polycy themia and many hemoglobin abnormalitiesmay have depressed sed rates whereas patients with anemiamay have elevated sed rates. 09/04/2024 9:02 AM EDT 09/04/2024 9:02 AM EDT Generic External Data Provider LAB BLOOD ORDERAB LES Final Result Performing Organization Address [facility] Co de Phone Number [facility] [address] [place] [phone] * C-reactive Protein (09/04/2024 9:02 AM EDT) C Reactive Protein 0.46 < or = 0.50 mg/dL [facility] 09/04/2024 9:02 AM EDT 09/04/2024 9:02 AM EDT us Generic External Data Provider LAB BLOOD ORDERAB LES Final Result Performing Organization Address [facility] Co de Phone Number [facility] [address] [place] [phone] * TSH (09/04/2024 9:02 AM EDT) Pathologist [facility] Thyroid Stimulating Hormone 1.41 0.32 - 4.0 uIU/mL [facility] Comment:TSH 3rd Generation ( [facility]) 09/04/2024 9:02 AM EDT 09/04/2024 9:02 AM EDT Generic External Data Provider LAB BLOOD ORDERAB LES Final Result Performing Organization Address [facility] Phone Number [facility] [address] [place] [phone] * T4, Free (09/04/2024 9:02 AM EDT) Pathologist [facility] Free T4 (Free Thyroxine) 1.31 0.71 - 1.85 ng/dL [facility] 09/04/2024 9:02 AM EDT 09/04/2024 9:02 AM EDT Generic External Data Provider LAB BLOOD ORDERAB LES Final Result Performing Organization Address [facility] de Phone Number [facility] [address] [place] [phone] * (ABNORMAL) Comprehensive Metabolic Panel (09/04/2024 9:02 AM EDT) Pathologist [facility] Sodium 141 135 - 145 mmol/L [facility] Potassium 3.7 3.3 - 5.1 mmol/L [facility] Chloride 110(H) 96 - 108 mmol/L [facility] Carbon Dioxide 29 22 - 29 mmol/L [facility] Anion Gap 6(L) 12 - 20 [facility] Urea Nitrogen (BUN) 14 9 - 16 mg/dL [facility] Creatinine, Serum 0.76 0.5 - 1.4 mg/dL [facility] Estimated Glomerular Filt Rate >60 [facility] Comment:Chronic Kidney Disea se: Estimated GFR < 60 mL/min/1.67y3Haodig Kidney Disease: Estimated GFR < 15 mL/min/1.73m2 Glucose 166(H) 60 - 115 mg/dL [facility] Calcium 9.3 8.4 - 10.2 mg/dL [facility] Bilirubin, Total 0.3 0.0 - 1.0 mg/dL [facility] Aspartate Amino Transferase 26 5 - 31 U/L [facility] Alanine Aminotransferase 15 0 - 31 U/L [facility] Total Protein 6.8 6.5 - 8.0 g/dL [facility] Albumin Level 3.0(L) 3.5 - 5.0 g/dL [facility] Alkaline Phosphatase 118(H) 39 - 117 U/L [facility] 09/04/2024 9:02 AM EDT 09/04/2024 9:02 AM EDT us Generic External Data Provider LAB BLOOD ORDERAB LES Final Result [facility] [address] [place] [phone] * (ABNORMAL) Basic Metabolic Panel (08/28/2024 10:10 AM EDT) Sodium 139 135 - 145 mmol/L [facility] Potassium 3.9 3.3 - 5.1 mmol/L [facility] Chloride 106 96 - 108 mmol/L [facility] Carbon Dioxide 28 22 - 29 mmol/L [facility] Anion Gap 9(L) 12 - 20 [facility] Urea Nitrogen (BUN) 17(H) 9 - 16 mg/dL [facility] Creatinine, Serum 0.78 0.5 - 1.4 mg/dL [facility] Estimated Glomerular Filt Rate >60 [facility] Comment:Chronic Kidney Disea se: Estimated GFR < 60 mL/min/1.53j9Avrfai Kidney Disease: Estimated GFR < 15 mL/min/1.73m2 Glucose 298(H) 60 - 115 mg/dL [facility] Calcium 8.9 8.4 - 10.2 mg/dL [facility] Blood Venous blood specimen / Unknown 08/28/2024 10:10 AM EDT 08/28/2024 11:12 AM EDT us Gavi Aldana DO LAB BLOOD ORDERABLES Final R esult [facility] [address] [place] [phone] * Cytopath-cell enhanced (08/28/2024 10:09 AM EDT) 08/28/2024 10:0 9 AM EDT 08/29/2024 6:10 AM EDT Narrative [facility] - 08/31/2024 11:09 AM EDT ----- ------- Name: Candi Solomon ? Age/Sex: 73/F ? : 1950 Unit#: [id number] ?? Attend Dr: Gavi Aldana DO ?Re08/28/24 ?Status: DEP REF ? Location: HO.HHCL ? Disch: ? ----- ------- SPEC : [id number] ? RECD: 08/29/24 ? STATUS: ??SOUT ? REQ NUM: [id number] ? MILAN: 08/28/24 ? SUBM DR: Gavi Aldana DO ? [...] DO LAB CYTOLOGY ORDERABLES Karina terry Result [facility] [address] [place] [phone] * Thyroid (08/23/2024 9:44 AM EDT) Anatomical Region Laterality Modality Head, Neck Ultrasound 08/23/2024 9:44 AM EDT Narrative 08/23/2024 3:29 PM EDT ? [facility] ?[address] ?[place] [address] ? Ultrasound Report ? Signed ? Patient: Sanchez Mueller,[place] ?MR#: ?? [id number] ? : 1950 ?Acct:[id number] ? Age/Sex: 73 / F ?ADM Date: 03/20/25 ? Loc: HO.US ? Attending Dr: Shruthi Cui MD ? Ordering Physician: Shruthi Cui MD ?? Date of Service: 08/23/24 ?? Procedure(s): US thyroid ?? Accession Number(s): [id number] ? cc: Gavi Aldana DO; Shruthi Cui [...] or equal to 1 cm: 4. ?? Stretcher Leveler Operator Helper nodules are described as follows: ? 1. [...] DD/ 0944 ? TD/TT: 08/23/24 0955 ? Assistant Case Manager: MSM ? Procedure Note Jose Da Silva - 08/23/[address] [address] Ultrasound Report Signed Patient: Candi Solomon EMR#: [id number] : 9Acct:[id number] Age/Sex: 73 / FADM Date: 08/23/24 Loc: HO.US Attending Dr: Shruthi Cui MD Ordering Physician: Shruthi Cui MD Date of Service: 08/23/24 Procedure(s): US thyroid Accession Number(s): [id number] cc: Gavi Aldana DO; Shruthi Cui MD [...] than or equal to 1 cm: 4. Stretcher Leveler Operator Helper nodules are described as follows: 1. Location: [...] 08/23/24 1525 DD/ 0944 TD/TT: 08/23/24 0955 Assistant Case Manager: LULY us [facility] External Provider IMG US PROCEDURES Final Result * CT Chest w/o Contrast (08/17/2024 9:18 AM EDT) Anatomical Region Laterality Modality Body, Chest Computed Tomogra phy 08/17/2024 9:18 AM EDT Narrative 08/17/2024 9:19 AM EDT ? [facility] ?[address] ?[place] [address] ? CT Scan Report ? Signed ? Patient: Candi Solomon ?MR#: ?? [id number] ? : 1950 ?Acct:[id number] ? Age/Sex: 73 / F ?ADM Date: 08/16/24 ? Loc: HO.CT ? Attending Dr: Gavi Aldana DO ? Ordering Physician: Gavi Aldana DO ?? Date of Service: 08/16/24 ?? Procedure(s): CT chest wo IV con ?? Accession Number(s): [id number] ? cc: Gavi Aldana DO ? Report Number: ?? [id number]: Total DLP = ??117.00 mGy-cm ? CLINICAL [...] ? DD/ 7 ? TD/TT: 08/17/24917 ? Assistant Case Manager: ? Procedure Note Donsteph, Image - 08/17/[address] [place] [address] [address] Scan Report Signed Patient: Candi Solomon EMR#: [id number] : 9Acct:[id number] Age/Sex: 73 / FADM Date: 08/16/24 Loc: HO.CT Attending Dr: Gavi Aldana DO Ordering Physician: Gavi Aldana DO Date of Service: 08/16/24 Procedure(s): CT chest wo IV con Accession Number(s): [id number] cc: Gavi Aldana DO Report Number: [id number]: Total DLP = 117.00 mGy-cm CLINICAL HISTORY: [...] in OV> 08/17/24918 DD/ 7 TD/TT: 08/17/24917 Assistant Case Manager: us Gavi Singhsusan DO IMG CT PROCEDURES Final Resu lt * CT Head w/o Contrast (08/17/2024 9:09 AM EDT) Anatomical Region Laterality Modality Head, Neck Computed Tomogra phy 08/17/2024 9:09 AM EDT Narrative 08/17/2024 9:11 AM EDT ? [facility] ?[address] ?[place] [address] ? CT Scan Report ? Signed ? Patient: Candi Solomon ?MR#: ?? [id number] ? : 1950 ?Acct:[id number] ? Age/Sex: 73 / F ?ADM Date: 08/16/24 ? Loc: HO.CT ? Attending Dr: Gavi Aldana DO ? Ordering Physician: Gavi Aldana DO ?? Date of Service: 08/16/24 ?? Procedure(s): CT head/brain wo IV con ?? Accession Number(s): [id number] ? cc: Gavi Aldana DO ? Report Number: ?? [id number]: Total DLP = ??715.00 mGy-cm ? CLINICAL [...] DD/ 0909 ? TD/TT: 08/17/24 0909 ? Assistant Case Manager: ? Procedure Note Donjaeter, Image - 08/17/[address] [address] [address] Scan Report Signed Patient: Candi Solomon EMR#: [id number] : 1950cct:[id number] Age/Sex: 73 / FADM Date: 08/16/24 Loc: HO.CT Attending Dr: Gavi Aldana DO Ordering Physician: Gavi Aldana DO Date of Service: 08/16/24 Procedure(s): CT head/brain wo IV con Accession Number(s): [id number] cc: Gavi Aldana DO Report Number: [id number]: Total DLP = 715.00 mGy-cm CLINICAL HISTORY: [...] in OV> 08/17/24909 DD/ 8 TD/TT: 08/17/24908 Assistant Case Manager: Gavi Aldana DO IMG CT PROCEDURES Final Resu lt * Vitamin B12 (Cobalamin) and Folate Panel, Serum (08/15/2024 9:43 AM EDT) Vitamin B12 726 200 - 900 pg/mL [facility] Comment:NORMAL 200-900 PG/ML INDETERMINATE 160-199 PG/ML DEFICIENT < 160 PG/ML Folate 10.0 > or = 4.0 ng/mL [facility] Comment:Reference Values:> o r = [...] ORDERABLES Final R esult Performing Organization Address City/[facility]/ZIP Co de Phone Number [facility] [address] [place] [phone] * RPR (Monitor) with Reflex to??Titer (08/15/2024 9:43 AM EDT) RPR (Monitor) w/Refl Titer NON-REACTI VE NON-REACT CAPRICE [facility] Comment:THIS TEST WAS PERFOR MED AT:[employer] [place] [phone] ULLOA MD Rapid Plasma Reagin Ab Titer TNP [facility] Blood Venous blood specimen / Unknown 08/15/2024 9:43 AM EDT 08/15/2024 11:45 AM EDT Gavi Aldana DO LAB BLOOD ORDERABLES Final R esult Performing Organization Address [facility]/ZIP Co de Phone Number [facility] [address] [place] [phone] * (ABNORMAL) Hemoglobin A1c (08/15/2024 9:43 AM EDT) Hemoglobin A1c 8.0(H) <6.0 % [facility] Comment:Hemoglobin A1C Refer ence Range Adults: 4.8 - 6.0 % Non diabetic: < 6.0 % Goal: < 7.0 %Additional Action Suggested: > 8.0 %Note: Hemoglobin A1c results are invalid for patients with abnormal amounts of HbF. Blood transfusions may impact the HbA1c concentration in the patient sample. Estimated Average Glucose 183 mg/dL [facility] Comment:eAG = Estimated ave rage glucose which is %A1C expressed asaverage glucose, using the formula of the [id number] Glucose study (ADAG), Diabetes Care, Vol.31,#8,Jan. 2007 Blood Venous blood specimen / Unknown 08/15/2024 9:43 AM EDT 08/15/2024 11:45 AM EDT us Gavi Aldana DO LAB BLOOD ORDERABLES Final R esult [facility] [address] [place] [address] [phone] * (ABNORMAL) Urinalysis Complete (08/15/2024 9:42 AM EDT) Color Urine Dark Yellow [facility] Appearance Urine Clear [facility] PH 5.5 5.0 - 9.0 [facility] Glucose Urine UA Negative Negative mg/dL [facility] Urine Blood Small (1+)(A) Negative [facility] Specific Orr - Urine >=1.030(H) 1.005 - 1.025 [facility] Urine Protein 300 (3+)(A) Neg-Trace mg/dL [facility] Urine Ketones Trace Negative mg/dL [facility] Nitrite Urine Negative Negative [facility] Leukocyte Esterase Urine Negative Negative [facility] RBC Urine >20(A) 0 - 2 /HPF [facility] Urine WBC 0-5 0 - 5 /HPF [facility] Urine Squamous Epithelial Cell 0-2 0 - 2 /HPF [facility] Urine Bacteria None Seen None Seen [facility] Hyaline Casts, Urine 3-5 0 - 2 /LPF [facility] Urine (Urine, Random) 08/15/2024 9:42 AM EDT 08/15/2024 11:25 AM EDT us Gavi Aldana DO LAB URINE ORDERABLES Final R esult Performing Organization Address City/[facility]/ZIP Co de Phone Number [facility] [address] [place] [phone] [phone] * (ABNORMAL) Glucose, Whole Blood (07/17/2024 9:33 AM EST) Glucose, Whole Blood 287(H) 60 - 115 mg/dL [facility] Comment:METER #: [id number] 5Testing performed in the Endocrinology Department [address], [address], [facility]. 07/17/2024 9:33 AM EST 07/17/2024 9:38 AM EST us Generic External Data Provider LAB BLOOD ORDERAB LES Final Result Performing Organization Address [facility]/ZIP Co de Phone Number [facility] [address] [place] [phone] * Lipid Panel, Standard (09/20/2023 7:27 AM EDT) Triglycerides 96 <150 mg/dL [facility] Comment:Desirable Triglyceri de: less than 150 mg/dLBorderline High Triglyceride 150-199 mg/dLHigh Triglyceride: 200-499 mg/dLVery High Triglyceride: greater than or equal to 5OO mg/dL Cholesterol 139 <200 mg/dL [facility] Comment:Desirable Cholestero l: less than 200 mg/dLBorderline High Cholesterol: 200-239 mg/dLHigh Cholesterol: greater than 239 mg/dL LDL Cholesterol Calculated 69 <100 mg/dL [facility] Comment:Desirable LDL: less than 100 mg/dLNear Optimal/Above Optimal LDL: 110- 129 mg/dLBorderline High LDL: 130-159 mg/dLHigh LDL: 160-189 mg/dLVery High LDL: greater than or equal to 190 mg/dL HDL Cholesterol 51 >40 mg/dL [facility] Comment:Desirable HDL: great er than 40 mg/dL Note: This HDL assay may give artificially low results in patients with liver disease. Blood Venous blood specimen / Unknown 09/20/2023 7:27 AM EDT 09/20/2023 7:27 AM EDT Gavi Aldana DO LAB BLOOD ORDERABLES Final R esult Performing Organization Address [facility] Co de Phone Number [facility] [address] [place] [phone] * (ABNORMAL) Albumin, Random Urine W/Creatinine (09/20/2023 7:23 AM EDT) Creatinine, Urine 211.65 mg/dL [facility] Microalbumin Urine 817.0 mg/L [facility] Microalbum Creatinine Ratio Ur 386.0(H) <30 ug/mg cr [facility] Comment:Albumin/Creatinine R atio Reference Ranges: Normal: < 30 ug/mg creatinine Microalbuminuria: 30 - 300 ug/mg creatinineClinical Albuminuria: > 300 ug/mg creatinine Urine (Urine, Random) 09/20/2023 7:23 AM EDT 09/20/2023 7:41 AM EDT Gavi Aldana DO LAB URINE ORDERABLES Final R esult Performing Organization Address [facility] Co de Phone Number [facility] [address] [place] [phone] * Hm Colonoscopy (07/28/2021 2:52 PM EST) Historical Provider HEALTH MAINTENANCE Final Result from Last 3 Months or Most Recently Relevant to Health Maintenance Insurance [facility] RESIDENTIAL OPTIONS (HMO D-SNP) [address] [place] [address] D[facility] [facility] [address] [place] [id number] [place] [address] [place] [phone] Care Teams Filter Press Operator Relationship Specialty Start Date End Date Gavi Aldana DO [address] [place] [address] PCP - General Family Medicine 06/06/18
--- OUTSIDE RECORDS SUMMARY | 2024-10-10 09:35 | XMS_ITS | Data Portability ---
Author Organization [place] - [facility], Allergy Address [address] [facility] 100 [place] [address] Care Team Providers Care Plant Tech Name Role Phone MARTINEZ VIZCARRA Primary Care [...] copy of the audiogram, a list of [facility] hearing aid providers, and medical clearance [...] Organization Details Recorded Time Dizziness and giddiness 558051177 Active 2018 Dizziness and giddiness ; Note: Date Diagnosed : 01/25/2019 11:02 AM (R42) Not Available [facility] 4 02:39:47 Impacted cerumen of bilateral ears 43110029145 86705 Active 2018 Impacted cerumen, bilateral ; Note: Date Diagnosed : 01/25/2019 11:05 AM (H61.23) Not Available [facility] 4 02:39:43 Bilateral tinnitus 43583525300 02 Active 2018 Tinnitus, bilateral ; Note: Date Diagnosed : 01/25/2019 11:24 AM (H93.13) Not Available [facility] 4 02:39:43 Cough 52612622 Active 2020 Cough, unspecifi ed; Note: Changed from R05 to R05.9 ( 4 9:23 AM) , Date Diagnosed : 02/11/2021 10:17 AM (R05) WYATT NAVA MD [address] [place] [address], [address] , [facility] - [facility] 4 10:02:57 Benign paroxysma l positiona l vertigo 344790258 Active 2018 Benign paroxysma l vertigo, unspecifi ed ear; Note: Date Diagnosed : 01/25/2019 11:03 AM (H81.10) Not Available [facility] 4 02:39:53 Sensorine ural hearing loss of bilateral ears 623130400 Active 2018 Sensorine ural hearing loss, bilateral ; Note: Date Diagnosed : 01/25/2019 11:24 AM (H90.3) Not Available [facility] 4 02:39:48 Gastroeso phageal reflux disease without esophagit is 919693207 Active 2023 Gastro-es ophageal reflux disease without esophagit is; Note: Date Diagnosed : 08/25/2023 10:32 AM (K21.9) Not Available [facility] 02:39:48 Allergic rhinitis 28315173 Active 2023 Allergic rhinitis, unspecifi ed; Note: Date Diagnosed : 08/01/2023 10:25 AM (J30.9) Not Available [facility] 02:39:50 Nasal congestio n 23476437 Active 2023 Nasal congestio n; Note: Date Diagnosed : 08/01/2023 10:25 AM (R09.81) Not Available [facility] 02:39:53 Problem Notes None recorded. Procedures Surgical History Date Name Laterality Status Provider Name and Address Organization Details Recorded Time 07/30/19 25 Wax_DP completed WYATT NAVA MD [address] [place] [address], [address], [facility] 07/30/2024 08:53:51 07/30/19 25 Air only Audio - 77372 completed JENA SALES [address], [address], [facility] 07/30/2024 09:17:09 07/30/19 25 Tympanometry - 88026 completed JENA SALES [address], [address], [facility] 07/30/2024 09:17:15 Imaging Results Imaging Date Name Status LastModified by Organ [facility] Details LastModified Time 07/30/2024 audiogram completed BARCODE [...] mg tablet 04/27 completed Medicati on ID: [id number] B rand Name: atorvast atin Sen d Method: E-Prescr ibed Sub s Allowed: subs OK Speci al Instruct ion: TOME PRAVEEN TABLETA TODOS LOS D AL [employer]COSTARS E Medica tionGene ricName: atorvast atin Not Available Not Available Not Available Vitamin C 500 mg tablet active Medicati on ID: [id number] B rand Name: Vitamin C Send Method: [...] layed release 02/11 completed Medicati on ID: [id number] D uration Value: 90 Brand Name: aspirin Send Method: E-Prescr ibed Sub s Allowed: subs OK Speci al Instruct ion: TOME PRAVEEN TABLETA POR V?A ORAL TODOS LOS D? Med icationG enericNa me: aspirin Not Available Not Available Not Available tramadol 50 mg tablet active Medicati on ID: [id number] B rand Name: tramadol Send Method: E-Prescr ibed Sub s Allowed: subs OK Medic ationGen ericName : tramadol Not Available Not Available Not Available spironola ctone 25 mg tablet active Medicati on ID: [id number] B rand Name: spironol actone S end [...] 10 mg tablet active Medicati on ID: [id number] B rand Name: baclofen Send Method: E-Prescr ibed Sub s Allowed: subs OK Speci al Instruct ion: TAKE 1 TABLET BY MOUTH 3 TIMES EVERY DAY NEEDED FOR MUSCLE SPASM/PA IN [facility] ericName : baclofen Not Available Not Available Not Available benzonata te 100 mg capsule TAKE 1 CAPSULE BY MOUTH THREE TIMES DAILY NEEDED FOR COUGH active Not Available Not Available No t Available pantopraz ole 40 mg tablet,de layed release active Medicati on ID: 963219 B rand Name: pantopra zole Sen d Method: E-Prescr ibed Sub s Allowed: subs OK [facility] ericName : pantopra zole Not Available Not Available Not Available ferrous sulfate 325 mg (65 mg iron) tablet 04/27 completed Medicati on ID: [id number] B rand Name: ferrous sulfate Send Method: [...] mg tablet 02/11 completed Medicati on ID: [id number] D uration Value: 90 Brand Name: metoprol [...] (0.125 mg) tablet active Medicati on ID: [id number] B rand Name: digoxin Send Method: E-Prescr [...] mg capsule 02/11 completed Medicati on ID: [id number] B rand Name: gabapent in Send Method: E-Prescr ibed Sub s Allowed: subs OK Medic ationGen ericName : gabapent in Not Available Not Available Not Available Novolog U-100 Insulin aspart 100 unit/mL subcutane ous solution active Medicati on ID: [id number] B rand Name: Novolog U-100 Insulin aspart S end Method: E-Prescr ibed Sub s Allowed: subs OK Speci al Instruct ion: UP TO 100 UNITS VIA INSULIN PUMP SUBCUT DAILY Me dication GenericN norma: Novolog U-100 Insulin aspart Not Available Not Available Not Available nystatin 100,000 unit/gram topical powder 04/27 completed Medicati on ID: [id number] B rand Name: nystatin Send Method: E-Prescr ibed Sub s Allowed: subs OK Speci al Instruct ion: APLIQUE AL LIAT AFECTADA DOS VECES AL D A Medica tionGene ricName: nystatin Not Available Not Available Not Available albuterol sulfate HFA 90 mcg/actua tion aerosol inhaler 02/11 completed Medicati on ID: [id number] B rand Name: albutero l sulfate Send Method: E-Prescr ibed Sub s Allowed: subs OK Speci al Instruct ion: TOME DOS INHALACI ONES POR V A ORAL CADA CUATRO A SEIS HORAS CUANDO SEA NECESARI O Medica tionGene ricName: albutero l sulfate Not Available Not Available Not Available fluticaso ne propionat e 50 mcg/actua tion nasal spray,lalo pension active Medicati on ID: [id number] B rand Name: fluticas one propiona te [...] 40 mg tablet active Medicati on ID: 164279 B rand Name: valsarta n Send Method: [...] mg-50 mg tablet active Medicati on ID: [id number] B rand Name: Senna Plus Sen d [...] ion nasal spray active Medicati on ID: [id number] B rand Name: Narcan S end Method: [...] pen injector 02/11 completed Medicati on ID: [id number] D uration Value: 30 Brand Name: Ozempic [...] Available Not Available Not Available Dexcom G7 Supervisor Grinding USE DIRECTED active Not Available Not Available [...] Updated DateTime 04/27/2024 149.86 cm 26.7 kg/m2 21252.19 g Susy Vera [place] - [facility] 04/27/2024 09:48:20 Date Recorded Body height Body mass index (BMI) Body weight Provider Name and Address Organization Details Last Updated DateTime 07/30/2024 149.86 cm 26.7 kg/m2 45588.19 g Nash Manish [place] - [facility] 07/30/2024 08:41:37 Social History None recorded. Functional Status None recorded. Mental Status None recorded. Family History Nothing Reported. Medical History Condition Response Diabetes Y Gynecological HistoryNo gynecological history recorded. Obstetrics History GPAL:G 0 P 0 0 0 0 Past Encounters Encounter ID Performer Location Encounter Start Date Encounter Closed Date Diagnosis/Indication Diagnosis SNOMED-CT Code Diagnosis ICD10 Code Diagnosis Note [id number] WYATT NAVA MD [facility] [address] [address] 04/27/2024 09:29:27 04/27/2024 10:08:17 Cough 66420082 R05.9 Sensorineu ral hearing loss of bilateral ears 195017623 H90.3 [id number] WYATT NAVA MD [facility] [address] [address] 07/30/2024 08:36:37 07/30/2024 09:43:52 Sensorineural hearing loss of bilateral ears 952083239 H90.3 Audiologic al evaluation results: Right ear: [...] seal}} Impacted c erumen of bilateral ears 5577817122 432847 H61.23 Ears were meticulous ly cleaned bilaterall [...] Recorded Advance Directives Directive None Recorded Payers Insurance Date Sequence Insurance Name Policy Number Policy Ivy Covered Member ID Ivy Member ID Guarantor Name 04/27/2024 1 [facility] (MEDICARE REPLACEMENT/ADV ANTAGE - HMO) Candi Sanchez [id number] Candi Sanchez 05/02/2024 2 [employer] [facility] (MEDICARE REPLACEMENT/ADV ANTAGE - HMO) Candi Sanchez [id number] Candi Sanchez 07/30/2024 1 [facility] - DOS ON OR AFTER 2022 - DUAL ELIGIBLE - MEDICARE ADVANTAGE [place] (MEDICARE REPLACEMENT/ADV ANTAGE - HMO) Candi Sanchez [id number] Candi Sanchez 07/30/2024 1 [facility] - DOS ON OR AFTER 2022 - GROUP HOME OPTIONS (MEDICARE REPLACEMENT/ADV ANTAGE - HMO) Candi Sanchez [id number] Candi Sanchez Notes Date Note Type Note [...] 2 pills. Rx famotidine WYATT NAVA MD [address] [facility],[place] [address], [place], [address], [place] - [facility] 04/27/2024 10:06:17 07/30/2024 text/html IPad - Spanishhe aring lossdid not pursue hearing aids in past year 08/01/23 Dr Kern audiomild sloping to severe B SNHLcleared for B HAE PV 04/27/24 Iris - cough - improved with meds from pulm WYATT NAVA MD [address] [facility],[place] [address], [place], [address], [facility] - [facility] 07/30/2024 09:42:27 OBGyn Episode No OBEpisode recorded.
--- OUTSIDE RECORDS SUMMARY | 2024-10-10 09:35 | XMS_ITS | Clinical Summary ---
Author Organization [address] [facility] Address 175 [place] [address] Phone Care Team Providers Care English Horn Player Name Role Phone FlacoGavi humphreys Primary Care Provider [phone]- [phone] Allergies No known active allergies Medications metFORMIN [...] (05/02/2024): IMO update Hypertension 07/28/2011 Non-ischemic cardiomyopathy ([facility]/HCC V24, [facility]/HC C V28) 07/28/2011 Encounters Date Type Department Care Team Description 10/01/2024 9:00 AM EDT Office Visit Orthopedic Surgery [facility] [address] [phone] Kota De La Torre DPM Peripheral venous insufficiency (Primary Dx); Primary osteoarthritis of both feet; Dermatophytosis of nail; Type II diabetes mellitus with peripheral circulatory disorder (CMS/HCC V24, CMS/HCC V28); Diabetic mononeuropathy simplex ([facility] V24, CMS/[facility] V28); Pain in toe of right foot; [...] 10:00 AM EDT Consult Vascular Surgery - [place] [address] [address] Tiffanie Holbrook MD 300 [facility] 210 [place] [address] 12/31/2024 9:15 AM EDT Office Visit Orthopedic Surgery [facility] [address] [phone] Kota De La Torre DPM [address] [address] Health Maintenance Due Date Last Done Comments [...] patient's age to complete this topic Insurance [facility] Member Subscriber Plan / Payer (Ef fective 2014-Present) Name:Candi Sanchez Relation to Subscriber:Self Name:Candi Sanchez Payer ID:[id number] Group ID:[id number] Type:Not on file Address: [place] [address] [address] [address] [phone] Care Teams English Horn Player Relationship Specialty Start Date End Date Gavi Aldana DO [address] [place] [address] PCP - General Internal Medicine 10/27/11
--- OUTSIDE RECORDS SUMMARY | 2024-10-10 09:35 | XMS_ITS | Encounter Summary ---
Author Organization [employer] Address [address] [facility] 7t [place] [address] Care Team Providers Care Informatica Mdm Architect Name Role Phone Gavi Aldana DO Primary Care Provider + [phone] Encounter Details Date Type Department Care Team (Late st Contact Info) Description 09/14/2023 Orders Only [facility] MEDICINE [address] [place] [address] Provider, MD [place] Social History Tobacco Use Types Packs/Day Years [...] 10/12/2024 9:00 AM EDT Office Visit [facility] ADULT DENTAL 230 [place], [place] [phone] José Miguel Sy DDS 230 [place], [place] [phone] documented as of this encounter Procedures Procedure [...] documented as of this encounter Care Teams Informatica Mdm Architect Relationship Specialty Start Date End Date Gavi Aldana DO 230 [place] [address] PCP - General Family Medicine 06/06/18 documented as of this encounter
--- OUTSIDE RECORDS SUMMARY | 2024-10-10 09:35 | XMS_ITS | Encounter Summary ---
Author Organization [employer] Address 75 [facility] 7t [place] [address] Care Team Providers Care Equine Intern Name Role Phone Gavi Aldana DO Primary Care Provider + [phone] Reason for Visit * Reason Comments Med Refill Encounter Details Date Type Department Care Team ([facility] st Contact Info) Description 04/04/2024 Refill [facility] MEDICINE 230 [place], [place] [phone] Gavi Aldana DO 230 [place], [place] [phone] Social History Tobacco Use Types Packs/Day Years [...] Description 10/12/2024 9:00 AM EDT Office Visit [facility] ADULT DENTAL 230 [place] [address] José Miguel Sy DDS 230 [place] [address] documented as of this encounter Visit Diagnoses Not on filedocumented in this encounter Additional Health Concerns Assessment Noted Time PHQ-9 Depression Total Score: 1 06/15/19 24 10:29 AM EST documented as of this encounter Care Teams Equine Intern Relationship Specialty Start Date End Date Gavi Aldana DO [address] [place] [address] PCP - General Family Medicine 06/06/18 documented as of this encounter
--- OUTSIDE RECORDS SUMMARY | 2024-10-10 09:35 | XMS_ITS | Encounter Summary ---
Author Organization [email or web address] Address 75 [facility] 7[address] [place] [address] Care Team Providers Care Housekeeper And Laundry Assistant Name Role Phone Gavi Aldana DO Primary Care Provider [phone] Encounter Details Date Type Department Care Team (Late Contact Info) Description 07/22/2022 Orders Only [facility] CHC MED & PEDS [address] [place] [address] Gavi Duarte LPN Social History Tobacco Use [...] Description 10/12/2024 9:00 AM EDT Office Visit [facility] ADULT DENTAL 230 [place] [address] José Miguel Sy DDS 230 [place] [address] documented as of this encounter Visit Diagnoses Not on filedocumented in this encounter Care Teams Housekeeper And Laundry Assistant Relationship Specialty Start Date End Date Gavi Aldana DO 230 [place] [address] PCP - General Family Medicine 06/06/18 documented as of this encounter
--- OUTSIDE RECORDS SUMMARY | 2024-10-10 09:35 | XMS_ITS | Data Portability ---
Author Organization [employer] Address [address] [place] [address] Assessment Encounter Date Assessment Date Assessment LastModified by Organization Details LastModified Time 03/17/2023 03/17/2023 As noted, we were called to see this patient regarding concerns of cough. Evaluation in the field was performed by my cripple worker colleague, as noted above, I provided real-time [...] SNOMED-CT Code Diagnosis ICD10 Code Diagnosis Note [id number] Amparo Marley MD Main - [address] [address] 03/17/2023 19:40:50 03/17/2023 19:55:52 Health Concerns Section Related Observation LastModified by Organization Detai ls LastModified Time None Recorded Concern Status LastModified by Organization Details LastModified Time None Recorded Advance Directives Directive None Recorded Payers Insurance Date Sequence Insurance Name Policy Number Policy Ivy Covered Member ID Ivy Member ID Guarantor Name 05/05/2024 1 [facility] - DOS ON OR AFTER 2022 - DUAL ELIGIBLE - RETIREMENT OPTIONS AND [facility] (MEDICARE REPLACEMENT/ADV ANTAGE - HMO) Candi Sanchez [id number] Candi Sanchez Notes Date Note Type Note [...] CRC RN DID NOT NEED FURTHER INFO [facility] HPI: 3 weeks, sore throat throughout, cough throughout. dry cough. has never had something like this before. some sour taste, depending on what she ate. no abdominal, a little epigastric burning. Saw provider, got tessalon perles, initially helpful but then. 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 Amparo Marley MD 30 [facility],[address], [place], [address], [employer] 03/17/2023 19:55:51 OBGyn Episode No OBEpisode recorded.
--- OUTSIDE RECORDS SUMMARY | 2024-10-10 09:35 | XMS_ITS | Encounter Summary ---
Author Organization [email or web address] [facility] Address [address] [place] [address] [address] [place] [address] Care Team Providers Care Nail Galvanizer Name Role Phone Gavi Aldana DO Primary Care Provider [phone] Reason for Visit * Reason Comments Med Refill Encounter Details Date Type Department Care Team ([facility] Contact Info) Description 10/11/2022 Refill [facility] MEDICINE 230 [place] [address] Gavi Aldana DO 230 [place] [address] Other chronic pain Social History Tobacco Use [...] Upcoming Encounters Date Type Department Care Team ([facility] Contact Info) Description 10/12/2024 9:00 AM EDT Office Visit [facility] ADULT DENTAL 230 [place] [address] José Miguel Sy DDS 230 [place] [address] documented as of this encounter Visit Diagnoses Diagnosis Other chronic pain documented in this encounter Care Teams Nail Galvanizer Relationship Specialty Start Date End Date Gavi Aldana DO 230 [place] [address] PCP - General Family Medicine 06/06/18 documented as of this encounter
--- OUTSIDE RECORDS SUMMARY | 2024-10-10 09:35 | XMS_ITS | Encounter Summary ---
Author Organization [employer] [facility] Address 75 [facility] 7t [place] [address] Care Team Providers Care Client Services Administrator Name Role Phone Gavi Aldana DO Primary Care Provider [phone] Encounter Details Date Type Department Care Team (Late st Contact Info) Description 06/22/2022 Orders Only [facility] MEDICINE 230 [place] [address] Tamara Floyd LPN Social History Tobacco Use [...] Description 10/12/2024 9:00 AM EDT Office Visit [facility] ADULT DENTAL 230 [place] [address] José Miguel Sy DDS 230 [place], [place] [phone] documented as of this encounter Procedures Procedure Name Priority Date/Time Associated Diagnosis Comments GLUCOSE, WHOLE BLOOD Routine 07/06/2022 10:44 AM EST documented in this encounter Results * (ABNORMAL) Glucose, Whole Blood (07/06/2022 10:44 AM EST) Glucose, Whole Blood 204(H) 60 - 115 mg/dL [facility] Comment:METER #: [id number] 5Testing performed in the Endocrinology Department [address] , [address], [facility]. 07/06/2022 10:4 4 AM EST 07/06/2022 10:48 AM EST us [facility] External Provider LAB BLO OD ORDERABLES Final Result Performing Organization Address City/State/[facility] Co de Phone Number [facility] [address] [place] [address] [phone] documented in this encounter Visit Diagnoses Not on filedocumented in this encounter Care Teams Client Services Administrator Relationship Specialty Start Date End Date Gavi Aldana DO 230 [place] [address] PCP - General Family Medicine 06/06/18 documented as of this encounter
--- OUTSIDE RECORDS SUMMARY | 2024-10-10 09:35 | XMS_ITS | Encounter Summary ---
Author Organization [email or web address] Address [address] [facility] 7t [place] [address] Care Team Providers Care Operations Processor Name Role Phone Gavi Aldana DO Primary Care Provider [phone] Encounter Details Date Type Department Care Team (Late Contact Info) Description 12/14/2022 Orders Only [facility] CHC MED & PEDS [address] [place] [address] Gavi Duarte LPN Social History Tobacco Use [...] Description 10/12/2024 9:00 AM EDT Office Visit [facility] ADULT DENTAL 230 [place] [address] José Miguel Sy DDS 230 [place] [address] documented as of this encounter Visit Diagnoses Not on filedocumented in this encounter Care Teams Operations Processor Relationship Specialty Start Date End Date Gavi Aldana DO 230 [place] [address] PCP - General Family Medicine 06/06/18 documented as of this encounter
[2024-10-10 09:50] LABS: Anion Gap 9 (12-20); Blood Urea Nitrogen 28 mg/dL (9-16); Carbon Dioxide 34 mmol/L (22-29); Chloride 100 mmol/L (96-108); Estimated Glomerular Filt Rate 56; Potassium 4.1 mmol/L (3.3-5.1); Sodium 139 mmol/L (135-145)
== END 2024-10-10 09:05 | disposition home or self-care (01) ==
LOC: HO.US 09:04
PROVIDERS: Absent Provider Internal Medicine Nephrology; PCP Family Medicine; Visit Provider Family Medicine
DX: R80.1 Persistent proteinuria, unspecified (principal); R31.29 Other microscopic hematuria
CPT/HCPCS: 36415; 76770; 80051; 82565; 84520

== ENCOUNTER → 2024-10-10 09:15 | Outpatient (BNV) | payer OTHER, SELFPAY | PROVIDERS: Absent Provider Internal Medicine Nephrology; PCP Family Medicine; Visit Provider Radiology Diagnostic Radiology | DX: R31.9 Hematuria, unspecified (principal) | CPT/HCPCS: 76770 ==

== ENCOUNTER 2024-10-16 08:35 | Outpatient (AMB) | payer OTHER, SELFPAY ==
--- OUTSIDE RECORDS SUMMARY | 2024-10-16 08:55 | XMS_ITS | Clinical Summary ---
Author Organization 175 [facility] Address 175 [place] [address] Phone Care Team Providers Care Crusher Screen Repairer Name Role Phone FlacoGavi humphreys Primary Care Provider +[phone]- [phone] Allergies No known active allergies Medications metFORMIN [...] (05/02/2024): IMO update Hypertension 07/28/2011 Non-ischemic cardiomyopathy ([facility]/HCC V24, [facility]/HC C V28) 07/28/2011 Encounters Date Type Department Care Team Description 10/01/2024 9:00 AM EDT Office Visit Orthopedic Surgery [facility] [address] [phone] Kota De La Torre DPM Peripheral venous insufficiency (Primary Dx); Primary osteoarthritis of both feet; Dermatophytosis of nail; Type II diabetes mellitus with peripheral circulatory disorder (CMS/HCC V24, CMS/HCC V28); Diabetic mononeuropathy simplex (CMS/[facility] V24, CMS/[facility] V28); Pain in toe of [...] 10:00 AM EDT Consult Vascular [facility] [address] [address] Tiffanie Holbrook MD 300 [facility] 210 [place] [address] 12/31/2024 9:15 AM EDT Office Visit Orthopedic Surgery [facility] [address] [phone] Kota De La Torre DPM [address] [address] Health Maintenance Due Date Last Done Comments [...] patient's age to complete this topic Insurance [facility] Member Subscriber Plan / Payer (Ef fective 2014-Present) Name:Candi Sanchez Relation to Subscriber:Self Name:Candi Sanchez Payer ID:[id number] Group ID:[id number] Type:Not on file Address: [place] [address] [address] [address] [phone] Care Teams Crusher Screen Repairer Relationship Specialty Start Date End Date Gavi Aldana DO [address] [place] [address] PCP - General Internal Medicine 10/27/11
--- OUTSIDE RECORDS SUMMARY | 2024-10-16 08:55 | XMS_ITS | Data Portability ---
Author Organization [facility] [employer] Address [address] [place] [address] Assessment Encounter Date Assessment Date Assessment LastModified by Organization Details LastModified Time 03/17/2023 03/17/2023 As noted, we were called to see this patient regarding concerns of cough. Evaluation in the field was performed by my honing machine operator semiautomatic colleague, as noted above, I provided real-time [...] SNOMED-CT Code Diagnosis ICD10 Code Diagnosis Note [id number] Amparo Marley MD Main - [address] [phone] 03/17/2023 19:40:50 03/17/2023 19:55:52 Health Concerns Section Related Observation LastModified by Organization [facility] [facility] LastModified Time None Recorded Concern Status LastModified by Organization Details LastModified Time None Recorded Advance Directives Directive None Recorded Payers Insurance Date Sequence Insurance Name Policy Number Policy Ivy Covered Member ID Ivy Member ID Guarantor Name 05/05/2024 1 [facility] - DOS ON OR AFTER 2022 - DUAL ELIGIBLE - ALF OPTIONS AND ONE CARE (MEDICARE REPLACEMENT/ADV ANTAGE - HMO) Candi Sanchez [id number] Candi Sanchez Notes Date Note Type Note [...] CRC RN DID NOT NEED FURTHER INFO [facility] HPI: 3 weeks, sore throat throughout, cough throughout. dry cough. has never had something like this before. some sour taste, depending on what she ate. no abdominal, a little epigastric burning. Saw provider, got tessalon perles, initially helpful but then. 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 Amparo Marley MD [address] [facility],[address], [place], [address], [facility] 03/17/2023 19:55:51 OBGyn Episode No OBEpisode recorded.
--- OUTSIDE RECORDS SUMMARY | 2024-10-16 08:55 | XMS_ITS | Encounter Summary ---
Author Organization [employer] Address [address] [facility] [address] [place] [address] Care Team Providers Care Laborer Pipelines Name Role Phone Gavi Aldana DO Primary Care Provider [phone] Encounter Details Date Type Department Care Team (Latest Contact Info) Description 09/25/2018 Abstract [facility] CONVERSIONS Dental, Provider, DDS Social History Tobacco [...] Care Team (Late st Contact Info) Description 12/03/2024 9:00 AM EDT Office Visit [facility] ADULT DENTAL [address] [place] [address] José Miguel Sy DDS [address] [place] [address] documented as of this encounter Visit Diagnoses Not on filedocumented in this encounter Care Teams Laborer Pipelines Relationship Specialty Start Date End Date Gavi Aldana DO [address] [place] [address] PCP - General Family Medicine 06/06/18 documented as of this encounter
--- OUTSIDE RECORDS SUMMARY | 2024-10-16 08:55 | XMS_ITS | Encounter Summary ---
Author Organization [employer] Address [address] [facility] [address] [place] [address] Care Team Providers Care Director Talent Acquisition Name Role Phone Gavi Aldana DO Primary Care Provider + [phone] Reason for Visit * Reason Comments Med Refill Encounter Details Date Type Department Care Team ([facility] st Contact Info) Description 04/04/2024 Refill [facility] [address] [place], [place] [phone] Gavi Aldana DO [address] [place], [place] [phone] Social History Tobacco Use Types Packs/Day Years [...] Description 12/03/2024 9:00 AM EDT Office Visit [facility] ADULT DENTAL [address] [place] [address] José Miguel Sy DDS [address] [place] [address] documented as of this encounter Visit Diagnoses Not on filedocumented in this encounter Additional Health Concerns Assessment Noted Time PHQ-9 Depression Total Score: 1 06/15/19 24 10:29 AM EST documented as of this encounter Care Teams Director Talent Acquisition Relationship Specialty Start Date End Date Gavi Aldana DO [address] [place] [address] PCP - General Family Medicine 06/06/18 documented as of this encounter
--- OUTSIDE RECORDS SUMMARY | 2024-10-16 08:55 | XMS_ITS | Encounter Summary ---
Author Organization [employer] [facility] Address [address] [facility] [address] [place] [address] Care Team Providers Care College President Name Role Phone Gavi Aldana DO Primary Care Provider [phone] Encounter Details Date Type Department Care Team (Late st Contact Info) Description 06/22/2022 Orders Only [facility] [address] [place] [address] Tamara Floyd LPN Social History Tobacco Use [...] Description 12/03/2024 9:00 AM EDT Office Visit [facility] ADULT DENTAL [address] [place] [address] José Miguel Sy DDS [address] [place], [place] [phone] documented as of this encounter Procedures Procedure Name Priority Date/Time Associated Diagnosis Comments GLUCOSE, WHOLE BLOOD Routine 07/06/2022 10:44 AM EST documented in this encounter Results * (ABNORMAL) Glucose, Whole Blood (07/06/2022 10:44 AM EST) Glucose, Whole Blood 204(H) 60 - 115 mg/dL [facility] Comment:METER #: [id number] 5Testing performed in the Endocrinology Department [address] , [address], [facility]. 07/06/2022 10:4 4 AM EST 07/06/2022 10:48 AM EST us [facility] External Provider LAB BLO OD ORDERABLES Final Result Performing Organization Address City/State/[facility] Co de Phone Number [facility] [address] [place] [address] [phone] documented in this encounter Visit Diagnoses Not on filedocumented in this encounter Care Teams College President Relationship Specialty Start Date End Date Gavi Aldana DO [address] [place] [address] PCP - General Family Medicine 06/06/18 documented as of this encounter
--- OUTSIDE RECORDS SUMMARY | 2024-10-16 08:55 | XMS_ITS | Encounter Summary ---
Author Organization [employer] Address [address] [facility] [address] [place] [address] Care Team Providers Care Gyroscope Repairer Name Role Phone Gavi Aldana DO Primary Care Provider + [phone] Encounter Details Date Type Department Care Team (Late st Contact Info) Description 09/14/2023 Orders Only [facility] [address] [place] [address] Provider, MD [place] Social History Tobacco Use [...] Description 12/03/2024 9:00 AM EDT Office Visit [facility] ADULT DENT[facility] [address] [place], [place] [phone] José Miguel Sy DDS [address] [place], [place] [phone] documented as of this encounter Procedures Procedure [...] documented as of this encounter Care Teams Gyroscope Repairer Relationship Specialty Start Date End Date Gavi Aldana DO [address] [place] [address] PCP - General Family Medicine 06/06/18 documented as of this encounter
--- OUTSIDE RECORDS SUMMARY | 2024-10-16 08:55 | XMS_ITS | Encounter Summary ---
Author Organization [employer] [facility] Address [address] [place] [address] [address] [place] [address] Care Team Providers Care Relocation Specialist Name Role Phone Gavi Aldana DO Primary Care Provider [phone] Reason for Visit * Reason Comments Med Refill Encounter Details Date Type Department Care Team ([facility] Contact Info) Description 10/11/2022 Refill [facility] [address] [place] [address] Gavi Aldana DO [address] [place] [address] Other chronic pain Social History Tobacco Use [...] Upcoming Encounters Date Type Department Care Team ([facility] Contact Info) Description 12/03/2024 9:00 AM EDT Office Visit [facility] ADULT DENTAL [address] [place] [address] José Miguel Sy DDS [address] [place] [address] documented as of this encounter Visit Diagnoses Diagnosis Other chronic pain documented in this encounter Care Teams Relocation Specialist Relationship Specialty Start Date End Date Gavi Aldana DO [address] [place] [address] PCP - General Family Medicine 06/06/18 documented as of this encounter
--- OUTSIDE RECORDS SUMMARY | 2024-10-16 08:55 | XMS_ITS | Clinical Summary ---
Author Organization [employer] Address [address] [facility] 7[address] [place] [address] Care Team Providers Care Flight Communications Specialist Name Role Phone Gavi Aldana DO Primary Care Provider [phone] Allergies Active Allergy Reactions Criticality Noted Date [...] FOR COUGH 30 capsule 023 Active Nystop 230680 UNIT/GM powder APPLY TO THE AFFECTED AREA(S) [...] capsule 1 023 Active UltiCare Short Pen [place] 31G X 8 MM misc USE DIRECTED [...] reports she was exposed to Covid-19 at [facility] but she always wears a mask Physical exam wnl Rapid strep, Covid and Flu negative Plan: supportive measures, recommended Tylenol prn, pt to test at home if symptoms do not improve or worsen and notify us if positive or worsening of symptoms Pt verbalized understanding Encounters Date Type Department Care Team Description 10/10/2024 Orders Only GENERIC EXTERNAL DATA DEPARTMENT Provider, Generic External Data 09/25/2024 Refill [facility] [address] [place], [place] [phone] Gavi Aldana DO Acute pain of right shoulder 09/10/2024 Telephone [facility] MEDICINE [address] [place] [phone] Gavi Aldana DO Durable Medical Equipment (DME Script Recliner Chair) 09/04/2024 Orders Only GENERIC EXTERNAL DATA DEPARTMENT Provider, Generic External Data 08/29/2024 Telephone [facility] MEDICINE [address] [place] [address] Gavi Aldana DO Prior Auth Prescription 08/28/2024 9:00 AM EDT Office Visit [facility] ADULT DENTAL [address] [place] [address] José Miguel Sy, BRIDGETT Dental caries (Primary Dx) 08/28/2024 Orders Only [facility]INE [address] [place] [phone] Gavi Aldana DO Microscopic hematuria (Primary Dx) 08/24/2024 Telephone [facility] [address] [place] [phone] Gavi Aldana DO Results 08/24/[address] [address] Gavi Aldana DO Durable Medical Equipment 08/23/2024 Orders Only [facility] External Provider, [facility] 08/15/2024 8:40 AM EDT Office Visit [facility] [address] [place] [phone] Veena White NP Acute pain of right shoulder (Primary Dx); Hand swelling from Last 3 Months Immunizations Name Administration [...] Description 12/03/2024 9:00 AM EDT Office Visit [facility] ADULT DENTAL [address] [place] [phone] José Miguel Sy DDS [address] [place] [address] Health Maintenance Due Date Last Done Comments [...] Diagnosis Comments CT CHEST WO CONTRAST Routine 10/10/2024 12:21 PM EDT US RETROPERITONEAL COMPLETE Routine 10/10/2024 10:12 AM EDT CREATININE, SERUM Routine 10/10/2024 9:1 3 AM EDT UREA NITROGEN (BUN) Routine 10/10/2024 9 :13 AM EDT ELECTROLYTE PANEL Routine 10/10/2024 9:1 3 AM EDT T-SPOT(R).TB Routine 09/04/2024 9:02 AM EDT HEPATITIS [...] breathing Forgetfulness Healthcare maintenance CYTOPATH-CELL ENHANCED Routine 10:09 AM EDT Microscopic hematuria CASE PRESENTATION, [...] Routine 08/15/2024 9:42 AM EDT Microscopic hematuria BITEWINGS - 4 RADIOGRAPHIC IMAGES Routine 07/04/2024 9:00 AM EST Dental caries into pulp Dental calculus Localized gingival recession Dental caries Missing teeth, acquired COMPREHENSIVE ORAL EVALUATION - NEW OR ESTABLISHED PATIENT Routine 07/04/2024 9:00 AM EST LIPID PANEL, STANDARD Routine 09/20/2023 7:27 AM EDT Type 2 diabetes mellitus without complication, with long-term current use of insulin ([facility]) ALBUMIN, RANDOM URINE W/CREATININE Routine [...] Maintenance Results * CT Chest w/o Contrast (10/10/2024 12:21 PM EDT) Only the most recent of2 resultswithin the time period is included. Anatomical Region Laterality Modality Body, Chest Computed Tomogra phy 10/10/2024 12:2 1 PM EDT Narrative 10/10/2024 12:22 PM EDT ? [facility] ?[address] ?[place] [address] ? CT Scan Report ? Signed ? Patient: Sanchez Mueller,[place] ?MR#: ?? [id number] ? : 1950 ?Acct:[id number] ? Age/Sex: 73 / F ?ADM Date: 10/09/24 ? Loc: HO.CT ? Attending Dr: Jona Lowe MD ? Ordering Physician: Jona Lowe MD ?? Date of Service: 10/09/24 ?? Procedure(s): CT chest wo IV con ?? Accession Number(s): [id number] ? cc: Gavi Aldana DO; Jona Lowe MD ? Report Number: ?? [id number]: Total DLP = ??156.00 mGy-cm ? CLINICAL HISTORY: R91.8 - Other nonspecific abnormal finding of lung field ? CT chest without contrast ? Comparison: CT/TN/SR - CT CHEST WO IV CON - 08/16/24 07:33 EDT ?? CT/TN/SR - CT CHEST WO IV CON - 10/13/23 09:41 EDT ?? CT/TN/SR - CT CHEST WO IV CON - 02/03/23 10:58 EDT ? Findings: ?? A cardiac device is present with leads in the right atrium, right ?? ventricle and coronary sinus. ?? There is cardiomegaly. There is a small pericardial effusion. ? The visualized thyroid and mediastinum are unremarkable. ? Pulmonary nodules previously noted are again present and unchanged. Area ?? of ground-glass opacification left lower lobe represents ?? scarring/atelectasis and is also unchanged. No new nodules are noted. ? The upper abdomen is unremarkable. ?? The bones are intact. ? A calcification is seen within the neural canal at the level of T5-T6, ?? unchanged. ? IMPRESSION: ?? 1. No significant interval changes. Stable cardiomegaly with small ?? pericardial effusion. Stable pulmonary nodules. No further follow-up is ?? necessary. ? Fleischner 2017 Guidelines were utilized to develop follow up ?? recommendations for this patient. The full article can be viewed at: ?? https://goo.gl/Eduardo ? Follow up strategies in solid nodules vary depending on patient risk ?? assessment, with patient's classified as high or low risk. Low risk is ?? associated with young age, smaller nodule size, regular margins, and ?? location in an area other than the upper lobe. High risk factors include ?? older age, heavy smoking, emphysema, carcinogen exposure, larger nodule ?? size, irregular or spiculated margins, and upper lobe location. Nodule ?? size and morphology are the dominant factors. ? Follow up of subsolid nodules (including ground glass and part solid ?? opacities) is different when compared to solid nodules based on risk of ?? malignancy and a longer doubling time in this group. Therefore when follow ?? up is recommended, it is for a longer interval. Also in this group, ?? recommendations may vary depending on a solitary lesion versus ?? multiplicity of lesions. A calculator of estimated risk is available at: ?? https://goo.gl/Crystal ? ##PFU## ? This document has been electronically signed by: Josué Burris MD on ?? 10/10/2024 12:21:37 ? Dictated By: ?Josué Burris MD ? Signed By: ?<Electronically signed by Josué Burris MD in OV> ? 10/10/24 1222 ? DD/ 1221 ? TD/TT: 10/10/24 1221 ? Wind Development Director: ? Procedure Note Jose Da Silva - 10/10/[address] [address] [address] Scan Report Signed Patient: Candi Solomon EMR#: [id number] : 9Acct:[id number] Age/Sex: 73 / FADM Date: 10/09/24 Loc: HO.CT Attending Dr: Jona Lowe MD Ordering Physician: Jona Lowe MD Date of Service: 10/09/24 Procedure(s): CT chest wo IV con Accession Number(s): [id number] cc: Gavi Aldana DO; Jona Lowe MD Report Number: [id number]: Total DLP = 156.00 mGy-cm CLINICAL HISTORY: R91.8 - Other nonspecific abnormal finding of lung field CT chest without contrast Comparison: CT/TN/SR - CT CHEST WO IV CON - 08/16/24 07:[address]/TN/SR - CT CHEST WO IV CON - 10/13/23 09:[address]/TN/SR - CT CHEST WO IV CON - 02/03/23 10:58 EDT Findings: A cardiac device is present with leads in the right atrium, right ventricle and coronary sinus. There is cardiomegaly. There is a small pericardial effusion. The visualized thyroid and mediastinum are unremarkable. Pulmonary nodules previously noted are again present and unchanged. Area of ground-glass opacification left lower lobe represents scarring/atelectasis and is also unchanged. No new nodules are noted. The upper abdomen is unremarkable. The bones are intact. A calcification is seen within the neural canal at the level of T5-T6, unchanged. IMPRESSION: 1. No significant interval changes. Stable cardiomegaly with small pericardial effusion. Stable pulmonary nodules. No further follow-up is necessary. Fleischner 2017 Guidelines were utilized to develop follow up recommendations for this patient. The full article can be viewed at: https://goo.gl/emmULK Follow up strategies in solid nodules vary depending on patient risk assessment, with patient's classified as high or low risk. Low risk is associated with young age, smaller nodule size, regular margins, and location in an area other than the upper lobe. High risk factors include older age, heavy smoking, emphysema, carcinogen exposure, larger nodule size, irregular or spiculated margins, and upper lobe location. Nodule size and morphology are the dominant factors. Follow up of subsolid nodules (including ground glass and part solid opacities) is different when compared to solid nodules based on risk of malignancy and a longer doubling time in this group. Therefore when follow up is recommended, it is for a longer interval. Also in this group, recommendations may vary depending on a solitary lesion versus multiplicity of lesions. A calculator of estimated risk is available at: https://goo.gl/JEEJEh ##PFU## This document has been electronically signed by: Josué Burris MD on 10/10/2024 12:21:37 Dictated By: Josué Burris MD Signed By: <Electronically signed by Josué Burris MD in OV> 10/10/24 1222 DD/ 1221 TD/TT: 10/10/24 1221 Wind Development Director: [facility] External Provider IMG CT PROCEDURES Final Result * US Retroperitoneal Complete (10/10/2024 10:12 AM EDT) Anatomical Region Laterality Modality Ultrasound 10/10/2024 10:1 2 AM EDT Narrative 10/10/2024 10:44 AM EDT ? [facility] ?[address] ?[place] [address] ? Ultrasound Report ? Signed ? Patient: Candi Solomon ?MR#: ?? [id number] ? : 1950 ?Acct:[id number] ? Age/Sex: 73 / F ?ADM Date: 10/10/24 ? Loc: HO.US ? Attending Dr: Gavi Aldana DO ? Ordering Physician: Gavi Aldana DO ?? Date of Service: 10/10/24 ?? Procedure(s): US retroperitoneal comp ?? Accession Number(s): [id number] ? cc: Gavi Aldana DO ? EXAMINATION: ?? US RETROPERITONEAL COMPLETE (RENAL) ? CLINICAL INFORMATION: ?? Hematuria.. ? COMPARISON: ?? 03/06/2024 renal ultrasound. ?? 07/02/2021 abdominal ultrasound. ?? 08/01/15 renal ultrasound. ? TECHNIQUE: ?? Real-time imaging of the kidneys and bladder. ? FINDINGS: ? RIGHT KIDNEY: 11.0 x 4.3 x 5.9 cm (SAG x AP x TRV). The kidney is ?? normal in size, contour, and echogenicity. Renal cortical thickness is ?? normal. No calculi or focal parenchymal lesions. No hydronephrosis. ? LEFT KIDNEY: 10.6 x 4.0 x 4.0 cm (SAG x AP x TRV). The kidney is normal ?? in size, contour, and echogenicity. Renal cortical thickness is normal. ?? No calculi or focal parenchymal lesions. No hydronephrosis. Tiny focus ?? of fluid abutting the lower pole, doubtful clinical significance. This ?? was seen previously. ? BLADDER: Well distended and normal. Bilateral ureteral jets are ?? demonstrated. Prevoid bladder volume is 185 mL. Postvoid bladder volume ?? is 17 mL. ? US/US retroperitoneal comp ?? IMPRESSION: ?? Essentially normal examination of the kidneys and bladder.. ? Electronically signed by: ??Nam Killian MD ??10/10/2024 10:41 AM EDT RP ? Dictated By: ?Nam Killian MD ? Signed By: ?<Electronically signed by Nam Killian MD in OV> ?10/10/24 1041 ? DD/ 1012 ? TD/TT: 10/10/24 1024 ? Wind Development Director: ? Procedure Note Ervinsteph, Image - 10/10/2024 [place] [address] Ultrasound Report Signed Patient: Candi Solomon EMR#: [id number] : 9Acct:[id number] Age/Sex: 73 / FADM Date: 10/10/24 Loc: HO.US Attending Dr: Gavi Aldana DO Ordering Physician: Gavi Aldana DO Date of Service: 10/10/24 Procedure(s): US retroperitoneal comp Accession Number(s): [id number] cc: Gavi Aldana DO EXAMINATION: US RETROPERITONEAL COMPLETE (RENAL) CLINICAL INFORMATION: Hematuria.. COMPARISON: 03/06/2024 renal ultrasound. 07/02/2021 abdominal ultrasound. 08/01/15 renal ultrasound. TECHNIQUE: Real-time imaging of the kidneys and bladder. FINDINGS: RIGHT KIDNEY: 11.0 x 4.3 x 5.9 cm (SAG x AP x TRV). The kidney is normal in size, contour, and echogenicity. Renal cortical thickness is normal. No calculi or focal parenchymal lesions. No hydronephrosis. LEFT KIDNEY: 10.6 x 4.0 x 4.0 cm (SAG x AP x TRV). The kidney is normal in size, contour, and echogenicity. Renal cortical thickness is normal. No calculi or focal parenchymal lesions. No hydronephrosis. Tiny focus of fluid abutting the lower pole, doubtful clinical significance. This was seen previously. BLADDER: Well distended and normal. Bilateral ureteral jets are demonstrated. Prevoid bladder volume is 185 mL. Postvoid bladder volume is 17 mL. US/US retroperitoneal comp IMPRESSION: Essentially normal examination of the kidneys and bladder.. Electronically signed by: Nam Killian MD 10/10/2024 10:41 AM EDT Dictated By: Nam Killian MD Signed By: <Electronically signed by Nam Killian MD in OV> 10/10/24 1041 DD/ 1012 TD/TT: 10/10/24 1024 Wind Development Director: us Gavi Aldana DO IMG US PROCEDURES Final Resu lt * Creatinine, Serum (10/10/2024 9:13 AM EDT) Creatinine, Serum 0.97 0.5 - 1.4 mg/dL [facility] Estimated Glomerular Filt Rate 56 [facility] Comment:Chronic Kidney Disea se: Estimated GFR < 60 mL/min/1.82k1Kymcpr Kidney Disease: Estimated GFR < 15 mL/min/1.73m2 10/10/2024 9:13 AM EDT 10/10/2024 9:13 AM EDT us Generic External Data Provider LAB BLOOD ORDERAB LES Final Result [facility] [address] [place] [phone] * (ABNORMAL) BUN (Blood Urea Nitrogen) (10/10/2024 9:13 AM EDT) [facility] Urea Nitrogen (BUN) 28(H) 9 - 16 mg/dL [facility] 10/10/2024 9:13 AM EDT 10/10/2024 9:13 AM EDT Generic External Data Provider LAB BLOOD ORDERAB LES Final Result Performing Organization Address [facility] Co de Phone Number [facility] [address] [place] [phone] * (ABNORMAL) Electrolyte Panel (10/10/2024 9:13 AM EDT) [facility] Sodium 139 135 - 145 mmol/L [facility] Potassium 4.1 3.3 - 5.1 mmol/L [facility] Chloride 100 96 - 108 mmol/L [facility] Carbon Dioxide 34(H) 22 - 29 mmol/L [facility] Anion Gap 9(L) 12 - 20 [facility] 10/10/2024 9:13 AM EDT 10/10/2024 9:13 AM EDT Generic External Data Provider LAB BLOOD ORDERAB LES Final Result Performing Organization Address [facility] Co de Phone Number [facility] [address] [place] [phone] * T-SPOT??.TB (09/04/2024 9:02 AM EDT) [facility] T Spot TB Negative Negative [facility] Comment:A negative test resu lt [...] as aquantitative test. TS PANEL A 0 [facility] TS PANEL B 0 [facility] Negative Control Passed [facility] Positive Control Passed [facility] Comment:For additional infor jared, please refer tohttp://education.Apiphany/faq/JPP649(This link is being provided for informational/educational purposes only.)THIS TEST WAS PERFORMED AT:[employer] [id number] [place] [address]ZSILDTLAMAIRANI CANTU MD,PHD 09/04/2024 9:02 AM EDT 09/04/2024 9:02 AM EDT us Generic External Data Provider LAB BLOOD ORDERAB LES Final Result [facility] [address] [place] [phone] * Hepatitis Panel, General (09/04/2024 9:02 AM EDT) Hepatitis A IgM Nonreactive Nonreactive [facility] Comment:IgM antibodies to MCCANN V not detected; does not exclude earlyacute or recovered HAV infection. ~Hepatitis B Surface Antibody REACTIVE Nonreactive [facility] Comment:REACTIVE: > 11.99 mI U/mL Hepatitis B Core Antibody Nonreactive Nonreactive [facility] Hepatitis C Antibody Nonreactive Nonreactive [facility] Comment:Antibodies to HCV no t detected; does not exclude early acuteHCV infection. Hepatitis B Surface Ag Negative Negative [facility] 09/04/2024 9:02 AM EDT 09/04/2024 9:02 AM EDT us Generic External Data Provider LAB BLOOD ORDERAB LES Final Result [facility] [address] [place], [place] [phone] * (ABNORMAL) CBC auto differential (09/04/2024 9:02 AM EDT) White Blood Count 6.0 4.8 - 10.8 X10*3/uL [facility] Red Blood Count 4.63 4.20 - 5.50 X10*6/uL [facility] Hemoglobin 10.8(L) 12.0 - 16.0 g/dl [facility] Hematocrit 35.1(L) 37.0 - 47.0 % [facility] Mean Corpuscular Volume 75.8(L) 80.0 - 98.0 fL [facility] Mean Corpuscular Hemoglobin 23.3(L) 27.0 - 33.0 pg [facility] Mean Corpuscular HGB Conc 30.8(L) 31.0 - 35.0 g/dl [facility] Red Cell Distribution Width 13.8 11.0 - 16.0 % [facility] Platelet Count 158(L) 160 - 400 X10*3/uL [facility] Mean Platelet Volume 13.0(H) 9.4 - 12.3 fL [facility] Neutrophils Percent Auto 69.9 45 - 73 % [facility] Imm Gran Pct Auto 0.7(H) 0.0 - 0.4 % [facility] Lymphocytes Percent Auto 16.4(L) 20 - 40 % [facility] Monocytes Percent Auto 8.5 2 - 11 % [facility] Eosinophils Percent Auto 3.8 0 - 4 % [facility] Basophils Percent Auto 0.7 0 - 2 % [facility] NRBC Pct Auto 0.0 0.0 - 0.2 /100WBC [facility] Neutrophils Absolute Auto 4.2 2.0 - 8.3 x10*3/uL [facility] Imm Gran Abs Auto 0.04(H) 0.00 - 0.03 X10*3/uL [facility] Lymphocytes Absolute Auto 1.0(L) 1.2 - 4.9 X10*3/uL [facility] Monocytes Absolute Auto 0.5 0.1 - 1.2 X10*3/uL [facility] Eosinophils Absolute Auto 0.2 0.0 - 0.4 X10*3/uL [facility] Basophils Absolute Auto 0.0 0.0 - 0.2 X10*3/uL [facility] NRBC Abs Auto 0.000 0.0 - 0.012 X10*3/uL [facility] 09/04/2024 9:02 AM EDT 09/04/2024 9:02 AM EDT Generic External Data Provider LAB BLOOD ORDERAB LES Final Result Performing Organization Address [facility] Co de Phone Number [facility] [address] [place] [phone] * (ABNORMAL) Sed Rate by Modified Austinren (09/04/2024 9:02 AM EDT) [facility] Erythrocyte Sedimentation Rate 34(H) 0 - 20 MM/HR [facility] Comment:Patients with polycy themia and many hemoglobin abnormalitiesmay have depressed sed rates whereas patients with anemiamay have elevated sed rates. 09/04/2024 9:02 AM EDT 09/04/2024 9:02 AM EDT Generic External Data Provider LAB BLOOD ORDERAB LES Final Result Performing Organization Address [facility] Co de Phone Number [facility] [address] [place] [phone] * C-reactive Protein (09/04/2024 9:02 AM EDT) C Reactive Protein 0.46 < or = 0.50 mg/dL [facility] 09/04/2024 9:02 AM EDT 09/04/2024 9:02 AM EDT us Generic External Data Provider LAB BLOOD ORDERAB LES Final Result Performing Organization Address [facility]/ZIP Co de Phone Number [facility] [address] [place] [phone] * TSH (09/04/2024 9:02 AM EDT) Pathologist [facility] Thyroid Stimulating Hormone 1.41 0.32 - 4.0 uIU/mL [facility] Comment:TSH 3rd Generation ( [facility]) 09/04/2024 9:02 AM EDT 09/04/2024 9:02 AM EDT Generic External Data Provider LAB BLOOD ORDERAB LES Final Result Performing Organization Address [facility]/ZIP Co de Phone Number [facility] [address] [place] [phone] * T4, Free (09/04/2024 9:02 AM EDT) Pathologist [facility] Free T4 (Free Thyroxine) 1.31 0.71 - 1.85 ng/dL [facility] 09/04/2024 9:02 AM EDT 09/04/2024 9:02 AM EDT Generic External Data Provider LAB BLOOD ORDERAB LES Final Result Performing Organization Address [facility] Co de Phone Number [facility] [address] [place] [phone] * (ABNORMAL) Comprehensive Metabolic Panel (09/04/2024 9:02 AM EDT) Pathologist [facility] Sodium 141 135 - 145 mmol/L [facility] Potassium 3.7 3.3 - 5.1 mmol/L [facility] Chloride 110(H) 96 - 108 mmol/L [facility] Carbon Dioxide 29 22 - 29 mmol/L [facility] Anion Gap 6(L) 12 - 20 [facility] Urea Nitrogen (BUN) 14 9 - 16 mg/dL [facility] Creatinine, Serum 0.76 0.5 - 1.4 mg/dL [facility] Estimated Glomerular Filt Rate >60 [facility] Comment:Chronic Kidney Disea se: Estimated GFR < 60 mL/min/1.69y7Fnhgvs Kidney Disease: Estimated GFR < 15 mL/min/1.73m2 Glucose 166(H) 60 - 115 mg/dL [facility] Calcium 9.3 8.4 - 10.2 mg/dL [facility] Bilirubin, Total 0.3 0.0 - 1.0 mg/dL [facility] Aspartate Amino Transferase 26 5 - 31 U/L [facility] Alanine Aminotransferase 15 0 - 31 U/L [facility] Total Protein 6.8 6.5 - 8.0 g/dL [facility] Albumin Level 3.0(L) 3.5 - 5.0 g/dL [facility] Alkaline Phosphatase 118(H) 39 - 117 U/L [facility] 09/04/2024 9:02 AM EDT 09/04/2024 9:02 AM EDT us Generic External Data Provider LAB BLOOD ORDERAB LES Final Result [facility] [address] [place] [phone] * (ABNORMAL) Basic Metabolic Panel (08/28/2024 10:10 AM EDT) Sodium 139 135 - 145 mmol/L [facility] Potassium 3.9 3.3 - 5.1 mmol/L [facility] Chloride 106 96 - 108 mmol/L [facility] Carbon Dioxide 28 22 - 29 mmol/L [facility] Anion Gap 9(L) 12 - 20 [facility] Urea Nitrogen (BUN) 17(H) 9 - 16 mg/dL [facility] Creatinine, Serum 0.78 0.5 - 1.4 mg/dL [facility] Estimated Glomerular Filt Rate >60 [facility] Comment:Chronic Kidney Disea se: Estimated GFR < 60 mL/min/1.52h0Akenjq Kidney Disease: Estimated GFR < 15 mL/min/1.73m2 Glucose 298(H) 60 - 115 mg/dL [facility] Calcium 8.9 8.4 - 10.2 mg/dL [facility] Blood Venous blood specimen / Unknown 08/28/2024 10:10 AM EDT 08/28/2024 11:12 AM EDT us Gavi Aldana DO LAB BLOOD ORDERABLES Final R esult [facility] [address] [place] [phone] * Cytopath-cell enhanced (08/28/2024 10:09 AM EDT) 08/28/2024 10:0 9 AM EDT 08/29/2024 6:10 AM EDT Narrative [facility] - 08/31/2024 11:09 AM EDT ----- ------- Name: Candi Solomon ? Age/Sex: 73/F ? : 1950 Unit#: [id number] ?? Attend Dr: Gavi Aldana DO ?Re08/28/24 ?Status: DEP REF ? [facility]: [facility] [address] [address] ? Disch: ? ----- ------- SPEC : [id number] ? RECD: 08/29/24 ? STATUS: ??SOUT ? REQ NUM: [id number] ? MILAN: 08/28/24-1009 ? SUBM DR: Gavi [...] ----- ------- Signed (signature on file) Arlin gOden MD 08/31/248 ? ----- ------- ? END OF REPORT ? us Gavi Aldana DO LAB CYTOLOGY ORDERABLES Karina terry Result [facility] [address] [place] [address] [phone] * Thyroid (08/23/2024 9:44 AM EDT) Anatomical Region Laterality Modality Head, Neck Ultrasound 08/23/2024 9:44 AM EDT Narrative 08/23/2024 3:29 PM EDT ? [facility] ?[address] ?[place] [address] ? Ultrasound Report ? Signed ? Patient: Sanchez Mueller,[place] ?MR#: ?? [id number] ? : 1950 ?Acct:[id number] ? Age/Sex: 73 / F ?ADM Date: 03/20/25 ? Loc: HO.US ? Attending Dr: Shruthi Cui MD ? Ordering Physician: Shruthi Cui MD ?? Date of Service: 08/23/24 ?? Procedure(s): US thyroid ?? Accession Number(s): [id number] ? cc: Gavi Aldana DO; Shruthi Cui [...] or equal to 1 cm: 4. ?? Grades 7 8 Tutor nodules are described as follows: ? 1. [...] Signed By: ?<Electronically signed by Vladislav S MD Divine in OV> ?08/23/24 1525 ? DD/ 0944 ? TD/TT: 08/23/24 0955 ? Wind Development Director: MSM ? Procedure Note Rekha, Jose - 08/23/2024 [facility] [address] [place] [address] Ultrasound Report Signed Patient: Candi Solomon EMR#: [id number] : 9Acct:[id number] Age/Sex: 73 / FADM Date: 08/23/24 Loc: HO.US Attending Dr: Shruthi Cui MD Ordering Physician: Shruthi Cui MD Date of Service: 08/23/24 Procedure(s): US thyroid Accession Number(s): [id number] cc: Gavi Aldana DO; Shruthi Cui MD [...] than or equal to 1 cm: 4. Grades 7 8 Tutor nodules are described as follows: 1. Location: [...] 08/23/24 1525 DD/ 0944 TD/TT: 08/23/24 0955 Wind Development Director: LULY us [facility] External Provider IMG US PROCEDURES Final Result * CT Head w/o Contrast (08/17/2024 9:09 AM EDT) Anatomical Region Laterality Modality Head, Neck Computed Tomogra phy 08/17/2024 9:09 AM EDT Narrative 08/17/2024 9:11 AM EDT ? [facility] ?[address] ?[place] [address] ? CT Scan Report ? Signed ? Patient: Candi Solomon ?MR#: ?? [id number] ? : 1950 ?Acct:[id number] ? Age/Sex: 73 / F ?ADM Date: 08/16/24 ? Loc: HO.CT ? Attending Dr: Gavi Aldana DO ? Ordering Physician: Gavi Aldana DO ?? Date of Service: 08/16/24 ?? Procedure(s): CT head/brain wo IV con ?? Accession Number(s): [id number] ? cc: Gavi Aldana DO ? Report Number: ?? [id number]: Total DLP = ??715.00 mGy-cm ? CLINICAL [...] in OV> ? 08/17/24 0910 ? DD/ 8 ? TD/TT: 08/17/24 09 ? Wind Development Director: ? Procedure Note Donpietrointerpreter, Image - 08/17/[address] [place] [address] [address] Scan Report Signed Patient: Candi Solomon EMR#: [id number] : 9Acct:[id number] Age/Sex: 73 / FADM Date: 08/16/24 Loc: HO.CT Attending Dr: Gavi Aldana DO Ordering Physician: Gavi Aldana DO Date of Service: 08/16/24 Procedure(s): CT head/brain wo IV con Accession Number(s): [id number] cc: Gavi Aldana DO Report Number: [id number]: Total DLP = 715.00 mGy-cm CLINICAL HISTORY: [...] in OV> 08/17/24909 DD/ 8 TD/TT: 08/17/24908 Wind Development Director: Gavi Aldana DO IMG CT PROCEDURES Final Resu lt * Vitamin B12 (Cobalamin) and Folate Panel, Serum (08/15/2024 9:43 AM EDT) Vitamin B12 726 200 - 900 pg/mL [facility] Comment:NORMAL 200-900 PG/M L INDETERMINATE 160-199 PG/ML DEFICIENT < 160 PG/ML Folate 10.0 > or = 4.0 ng/mL [facility] Comment:Reference Values:> o r = [...] ORDERABLES Final R esult Performing Organization Address City/[facility]/ZIP Co de Phone Number [facility] [address] [place] [phone] * RPR (Monitor) with Reflex to??Titer (08/15/2024 9:43 AM EDT) RPR (Monitor) w/Refl Titer NON-REACTI VE NON-REACT CAPRICE [facility] Comment:THIS TEST WAS PERFOR MED AT:[facility] [place] [phone] ULLOA MD Rapid Plasma Reagin Ab Titer TNP [facility] Blood Venous blood specimen / Unknown 08/15/2024 9:43 AM EDT 08/15/2024 11:45 AM EDT Gavi Aldana DO LAB BLOOD ORDERABLES Final R esult Performing Organization Address City/[facility]/ZIP Co de Phone Number [facility] [address] [place] [phone] * (ABNORMAL) Hemoglobin A1c (08/15/2024 9:43 AM EDT) Hemoglobin A1c 8.0(H) <6.0 % [facility] Comment:Hemoglobin A1C Refer ence Range Adults: 4.8 - 6.0 % Non diabetic: < 6.0 % Goal: < 7.0 %Additional Action Suggested: > 8.0 %Note: Hemoglobin A1c results are invalid for patients with abnormal amounts of HbF. Blood transfusions may impact the HbA1c concentration in the patient sample. Estimated Average Glucose 183 mg/dL [facility] Comment:eAG = Estimated ave rage glucose which is %A1C expressed asaverage glucose, using the formula of the M3C-ExsjabgEsjlgyy Glucose study (ADAG), Diabetes Care, Vol.31,#8,Jan. 2007 Blood Venous blood specimen / Unknown 08/15/2024 9:43 AM EDT 08/15/2024 11:45 AM EDT us Gavi Aldana DO LAB BLOOD ORDERABLES Final R esult [facility] [address] [place] [phone] * (ABNORMAL) Urinalysis Complete (08/15/2024 9:42 AM EDT) Color Urine Dark Yellow [facility] Appearance Urine Clear [facility] PH 5.5 5.0 - 9.0 [facility] Glucose Urine UA Negative Negative mg/dL [facility] Urine Blood Small (1+)(A) Negative [facility] Specific [place] - Urine >=1.030(H) 1.005 - 1.025 [facility] Urine Protein 300 (3+)(A) Neg-Trace mg/dL [facility] Urine Ketones Trace Negative mg/dL [facility] Nitrite Urine Negative Negative [facility] Leukocyte Esterase Urine Negative Negative [facility] RBC Urine >20(A) 0 - 2 /HPF [facility] Urine WBC 0-5 0 - 5 /HPF [facility] Urine Squamous Epithelial Cell 0-2 0 - 2 /HPF [facility] Urine Bacteria None Seen None Seen [facility] Hyaline Casts, Urine 3-5 0 - 2 /LPF [facility] Urine (Urine, Random) 08/15/2024 9:42 AM EDT 08/15/2024 11:25 AM EDT us Gavi Aldana DO LAB URINE ORDERABLES Final R esult [facility] [address] [place] [phone] * Lipid Panel, Standard (09/20/2023 7:27 AM EDT) Triglycerides 96 <150 mg/dL [facility] Comment:Desirable Triglyceri de: less than 150 mg/dLBorderline High Triglyceride 150-199 mg/dLHigh Triglyceride: 200-499 mg/dLVery High Triglyceride: greater than or equal to 5OO mg/dL Cholesterol 139 <200 mg/dL [facility] Comment:Desirable Cholestero l: less than 200 mg/dLBorderline High Cholesterol: 200-239 mg/dLHigh Cholesterol: greater than 239 mg/dL LDL Cholesterol Calculated 69 <100 mg/dL [facility] Comment:Desirable LDL: less than 100 mg/dLNear Optimal/Above Optimal LDL: 110- 129 mg/dLBorderline High LDL: 130-159 mg/dLHigh LDL: 160-189 mg/dLVery High LDL: greater than or equal to 190 mg/dL HDL Cholesterol 51 >40 mg/dL [facility] Comment:Desirable HDL: great er than 40 mg/dL Note: This HDL assay may give artificially low results in patients with liver disease. Blood Venous blood specimen / Unknown 09/20/2023 7:27 AM EDT 09/20/2023 7:27 AM EDT us Gavi Jurcsak DO LAB BLOOD ORDERABLES Final R esult Performing Organization Address City/[facility] Co de Phone Number [facility] [address] [place] [phone] * (ABNORMAL) Albumin, Random Urine W/Creatinine (09/20/2023 7:23 AM EDT) Creatinine, Urine 211.65 mg/dL [facility] Microalbumin Urine 817.0 mg/L [facility] Microalbum Creatinine Ratio Ur 386.0(H) <30 ug/mg cr [facility] Comment:Albumin/Creatinine R atio Reference Ranges: Normal: < 30 ug/mg creatinine Microalbuminuria: 30 - 300 ug/mg creatinineClinical Albuminuria: > 300 ug/mg creatinine Urine (Urine, Random) 09/20/2023 7:23 AM EDT 09/20/2023 7:41 AM EDT Gavi Samjuliann LAB URINE ORDERABLES Final R esult Performing Organization Address [facility] Co de Phone Number [facility] [address] [place] [phone] * Colonoscopy (07/28/2021 2:52 PM EST) Historical Provider HEALTH MAINTENANCE Final Result from Last 3 Months or Most Recently Relevant to Health Maintenance Insurance [facility] F[employer] OPTIONS (O D-SNP) DENTAL - [facility] Care Teams Flight Communications Specialist Relationship Specialty Start Date End Date Gavi Aldana DO [address] [place] [phone] PCP - General Family Medicine 06/06/18
--- OUTSIDE RECORDS SUMMARY | 2024-10-16 08:55 | XMS_ITS | Encounter Summary ---
Author Organization [employer] Address [address] [facility] [address] [place] [address] Care Team Providers Care Bead Inspector Name Role Phone Gavi Aldana DO Primary Care Provider [phone] Encounter Details Date Type Department Care Team (Latest Contact Info) Description 03/10/2022 Abstract [facility] CONVERSIONS Dental, Provider, DDS Social [...] Description 12/03/2024 9:00 AM EDT Office Visit [facility] ADULT DENTAL [address] [place] [address] José Miguel Sy DDS [address] [place] [address] documented as of this encounter Visit Diagnoses Not on filedocumented in this encounter Care Teams Bead Inspector Relationship Specialty Start Date End Date Gavi Aldana DO [address] [place] [address] PCP - General Family Medicine 06/06/18 documented as of this encounter
--- OUTSIDE RECORDS SUMMARY | 2024-10-16 08:55 | XMS_ITS | Encounter Summary ---
Author Organization [employer] Address [address] [facility] [address] [place] [address] Care Team Providers Care Electron Beam Operator Name Role Phone Gavi Aldana DO Primary Care Provider [phone] Encounter Details Date Type Department Care Team (Late Contact Info) Description 12/14/2022 Orders Only [facility] CHC MED & PEDS [address] [place] [address] Gavi Duarte LPN Social History Tobacco Use [...] Department Care Team (Late Contact Info) Description 12/03/2024 9:00 AM EDT Office Visit [facility] ADULT DENTAL [address] [place] [address] José Miguel Sy DDS [address] [place] [address] documented as of this encounter Visit Diagnoses Not on filedocumented in this encounter Care Teams Electron Beam Operator Relationship Specialty Start Date End Date Gavi Aldana DO [address] [place] [address] PCP - General Family Medicine 06/06/18 documented as of this encounter
--- OUTSIDE RECORDS SUMMARY | 2024-10-16 08:55 | XMS_ITS | Encounter Summary ---
Author Organization [employer] Address [address] [facility] [address] [place] [address] Care Team Providers Care Oceanology Teacher Name Role Phone Gavi Aldana DO Primary Care Provider [phone] Encounter Details Date Type Department Care Team (Late Contact Info) Description 07/22/2022 Orders Only [facility] CHC MED & PEDS [address] [place] [address] Gavi Duarte LPN Social History Tobacco Use [...] Description 12/03/2024 9:00 AM EDT Office Visit [facility] ADULT DENTAL [address] [place] [address] José Miguel Sy DDS [address] [place] [address] documented as of this encounter Visit Diagnoses Not on filedocumented in this encounter Care Teams Oceanology Teacher Relationship Specialty Start Date End Date Gavi Aldana DO [address] [place] [address] PCP - General Family Medicine 06/06/18 documented as of this encounter
--- OUTSIDE RECORDS SUMMARY | 2024-10-16 08:56 | XMS_ITS | Data Portability ---
Author Organization [place] [facility] Address [address] [facility] [address] [place] [address] Care Team Providers Care Chrome Polisher Name Role Phone MARTINEZ VIZCARRA Primary Care Provider [phone] Assessment Encounter Date Assessment Date Assessment LastModified [...] copy of the audiogram, a list of [facility] hearing aid providers, and medical clearance for [...] Organization Details Recorded Time Dizziness and giddiness [id number] Active 2018 Dizziness and giddiness ; Note: Date Diagnosed : 01/25/2019 11:02 AM (R42) Not Available [facility] 4 02:39:47 Impacted cerumen of bilateral ears 58151099018 39721 Active 2018 Impacted cerumen, bilateral ; Note: Date Diagnosed : 01/25/2019 11:05 AM (H61.23) Not Available [facility] 4 02:39:43 Bilateral tinnitus 45943806263 02 Active 2018 Tinnitus, bilateral ; Note: Date Diagnosed : 01/25/2019 11:24 AM (H93.13) Not Available [facility] 4 02:39:43 Cough 06508883 Active 2020 Cough, unspecifi ed; Note: Changed from R05 to R05.9 ( 4 9:23 AM) , Date Diagnosed : 02/11/2021 10:17 AM (R05) WYATT NAVA MD [address] [place] [address], [phone] , [facility] - [facility] 4 10:02:57 Benign paroxysma l positiona l vertigo 180592376 Active 2018 Benign paroxysma l vertigo, unspecifi ed ear; Note: Date Diagnosed : 01/25/2019 11:03 AM (H81.10) Not Available [facility] 4 02:39:53 Sensorine ural hearing loss of bilateral ears 079025401 Active 2018 Sensorine ural hearing loss, bilateral ; Note: Date Diagnosed : 01/25/2019 11:24 AM (H90.3) Not Available [facility] 4 02:39:48 Gastroeso phageal reflux disease without esophagit is 856052112 Active 2023 Gastro-es ophageal reflux disease without esophagit is; Note: Date Diagnosed : 08/25/2023 10:32 AM (K21.9) Not Available [facility] 02:39:48 Allergic rhinitis 01605153 Active 2023 Allergic rhinitis, unspecifi ed; Note: Date Diagnosed : 08/01/2023 10:25 AM (J30.9) Not Available [facility] 02:39:50 Nasal congestio n 95159564 Active 2023 Nasal congestio n; Note: Date Diagnosed : 08/01/2023 10:25 AM (R09.81) Not Available [facility] 02:39:53 Problem Notes None recorded. Procedures Surgical History Date Name Laterality Status Provider Name and Address Organization Details Recorded Time 07/30/19 25 Wax_DP completed WYATT NAVA MD [address] [place] [address], [phone], [facility] 07/30/2024 08:53:51 07/30/19 25 Air only Audio - 97986 completed JENA [employer]ES [address], [phone], [facility] 07/30/2024 09:17:09 07/30/19 25 Tympanometry - 01187 completed JENA [employer]ES [address], [address], [facility] 07/30/2024 09:17:15 Imaging Results Imaging Date [...] mg tablet 04/27 completed Medicati on ID: [id number] B rand Name: atorvast atin Sen d Method: E-Prescr ibed Sub s Allowed: subs OK Speci al Instruct ion: TOME PRAVEEN TABLETA TODOS LOS D AL ACOSTARS E Medica tionGene ricName: atorvast atin Not Available Not Available Not Available Vitamin C 500 mg tablet active Medicati on ID: 179387 B rand Name: Vitamin C Send Method: [...] layed release 02/11 completed Medicati on ID: [id number] D uration Value: 90 Brand Name: aspirin Send Method: E-Prescr ibed Sub s Allowed: subs OK Speci al Instruct ion: TOME PRAVEEN TABLETA POR V?A ORAL TODOS LOS D? Med icationG enericNa me: aspirin Not Available Not Available Not Available tramadol 50 mg tablet active Medicati on ID: 743644 B rand Name: tramadol Send Method: E-Prescr ibed Sub s Allowed: subs OK Medic ationGen ericName : tramadol Not Available Not Available Not Available spironola ctone 25 mg tablet active Medicati on ID: 450426 B rand Name: spironol actone S end [...] 10 mg tablet active Medicati on ID: 093834 B rand Name: baclofen Send Method: E-Prescr ibed Sub s Allowed: subs OK Speci al Instruct ion: TAKE 1 TABLET BY MOUTH 3 TIMES EVERY DAY NEEDED FOR MUSCLE SPASM/PA IN [facility] ericName : baclofen Not Available Not Available Not Available benzonata te 100 mg capsule TAKE 1 CAPSULE BY MOUTH THREE TIMES DAILY NEEDED FOR COUGH active Not Available Not Available No t Available pantopraz ole 40 mg tablet,de layed release active Medicati on ID: 756680 B rand Name: pantopra zole Sen d Method: E-Prescr ibed Sub s Allowed: subs OK [facility] ericName : pantopra zole Not Available Not Available Not Available ferrous sulfate 325 mg (65 mg iron) tablet 04/27 completed Medicati on ID: 711652 B rand Name: ferrous sulfate Send Method: [...] mg tablet 02/11 completed Medicati on ID: 884557 D uration Value: 90 Brand Name: metoprol [...] (0.125 mg) tablet active Medicati on ID: 531466 B rand Name: digoxin Send Method: E-Prescr [...] mg capsule 02/11 completed Medicati on ID: 307571 B rand Name: gabapent in Send Method: E-Prescr ibed Sub s Allowed: subs OK Medic ationGen ericName : gabapent in Not Available Not Available Not Available Novolog U-100 Insulin aspart 100 unit/mL subcutane ous solution active Medicati on ID: 068241 B rand Name: Novolog U-100 Insulin aspart S end Method: E-Prescr ibed Sub s Allowed: subs OK Speci al Instruct ion: UP TO 100 UNITS VIA INSULIN PUMP SUBCUT DAILY Me dication GenericN norma: Novolog U-100 Insulin aspart Not Available Not Available Not Available nystatin 100,000 unit/gram topical powder 04/27 completed Medicati on ID: 816571 B rand Name: nystatin Send Method: E-Prescr ibed Sub s Allowed: subs OK Speci al Instruct ion: APLIQUE AL LIAT AFECTADA DOS VECES AL D A Medica tionGene ricName: nystatin Not Available Not Available Not Available albuterol sulfate HFA 90 mcg/actua tion aerosol inhaler 02/11 completed Medicati on ID: 655654 B rand Name: albutero l sulfate Send Method: E-Prescr ibed Sub s Allowed: subs OK Speci al Instruct ion: TOME DOS INHALACI ONES POR V A ORAL CADA CUATRO A SEIS HORAS CUANDO SEA NECESARI O Medica tionGene ricName: albutero l sulfate Not Available Not Available Not Available fluticaso ne propionat e 50 mcg/actua tion nasal spray,lalo pension active Medicati on ID: 931745 B rand Name: fluticas one propiona te [...] 40 mg tablet active Medicati on ID: 962692 B rand Name: valsarta n Send Method: [...] mg-50 mg tablet active Medicati on ID: 408770 B rand Name: Senna Plus Sen d [...] ion nasal spray active Medicati on ID: 433372 B rand Name: Narcan S end Method: [...] pen injector 02/11 completed Medicati on ID: 084111 D uration Value: 30 Brand Name: Ozempic [...] Available Not Available Not Available Dexcom G7 Medication Care Manager USE DIRECTED active Not Available Not [...] Updated DateTime 04/27/2024 149.86 cm 26.7 kg/m2 88195.19 g Susy Vera [place] [facility] 04/27/2024 09:48:20 Date Recorded Body height Body mass index (BMI) Body weight Provider Name and Address Organization Details Last Updated DateTime 07/30/2024 149.86 cm 26.7 kg/m2 83897.19 g Nash Manish [place] [facility] 07/30/2024 08:41:37 Social History None recorded. Functional Status None recorded. Mental Status None recorded. Family History Nothing Reported. Medical History Condition Response Diabetes Y Gynecological HistoryNo gynecological history recorded. Obstetrics History GPAL:G 0 P 0 0 0 0 Past Encounters Encounter ID Performer Location Encounter Start Date Encounter Closed Date Diagnosis/Indication Diagnosis SNOMED-CT Code Diagnosis ICD10 Code Diagnosis Note [id number] WYATT NAVA MD [facility] [address] [phone] 04/27/2024 09:29:27 04/27/2024 10:08:17 Cough 21355319 R05.9 Sensorineu ral hearing loss of bilateral ears 776760198 H90.3 [id number] WYATT NAVA MD [facility] [address] [address] 07/30/2024 08:36:37 07/30/2024 09:43:52 Sensorineural hearing loss of bilateral ears 573030622 H90.3 Audiologic al evaluation results: Right ear: [...] seal}} Impacted c erumen of bilateral ears 6387060814 985068 H61.23 Ears were meticulous ly cleaned bilaterall [...] Ivy Member ID Guarantor Name 04/27/2024 1 [facility] (MEDICARE REPLACEMENT/ADV ANTAGE - HMO) Candi Sanchez [id number] Candi Sanchez 05/02/2024 2 [facility] [place] (MEDICARE REPLACEMENT/ADV ANTAGE - HMO) Candi Sanchez [id number] Candi Sanchez 07/30/2024 1 [facility] - DOS ON OR AFTER 2022 - DUAL ELIGIBLE - MEDICARE ADVANTAGE [place] (MEDICARE REPLACEMENT/ADV ANTAGE - HMO) Candi Sanchez [id number] Candi Sanchez 07/30/2024 1 [facility] - DOS ON OR AFTER 2022 - [employer] (MEDICARE REPLACEMENT/ADV ANTAGE - HMO) Candi Sanchez [id number] Candi Sanchez Notes Date Note Type Note [...] pills. Rx famotidine WYATT NAVA MD [address] [facility],[place] [address], [place], [address], [place] [facility] 04/27/2024 10:06:17 07/30/2024 text/html IPad - Spanishhe aring lossdid not pursue hearing aids in past year 08/01/23 Dr Kern audiomild sloping to severe B SNHLcleared for B HAE PV 04/27/24 Iris - cough - improved with meds from pulm WYATT NAVA MD [address] [facility],[place] [address], [place], [address], [facility] - [facility] 07/30/2024 09:42:27 OBGyn Episode No OBEpisode recorded.
--- NOTE | 2024-10-16 09:24 | MHC.AMDMED ---
Intake Intake Visit Reasons: T2DM [employer] Open [employer] Administrator Required: Yes [employer] Open Stack Administrator Language: Motor Vehicle Technician Name: Jose [facility] Accompanied by: Self / Same As Patient Allergies No Known Allergies Allergy (Verified 10/03/24 09:52) HPI Comprehensive Diabetes Asmnt Most Recent Diabetes Results: Microalb/Creat Ratio 386.0 ug/mg cr (<30) H 09/20/23 Cholesterol 146 mg/dL (<200) 08/15/24 HDL Cholesterol 53 mg/dL (>40) 08/15/24 Triglycerides 88 mg/dL (<150) 08/15/24 Creatinine 0.97 mg/dL (0.5-1.4) 10/10/24 Blood Urea Nitrogen 28 mg/dL (9-16) H 10/10/24 Sodium 139 mmol/L (135-145) 10/10/24 Potassium 4.1 mmol/L (3.3-5.1) 10/10/24 Chloride 100 mmol/L (96-108) 10/10/24 Carbon Dioxide 34 mmol/L (22-29) H 10/10/24 Calcium 9.3 mg/dL (8.4-10.2) 09/04/24 AST 26 U/L (5-31) 09/04/24 ALT 15 U/L (0-31) 09/04/24 Total Protein 6.8 g/dL (6.5-8.0) 09/04/24 Albumin 3.0 g/dL (3.5-5.0) L 09/04/24 PFSH Medical History Polyarticular osteoarthritis Thyroid nodule greater than or equal to 1.5 cm in diameter incidentally noted on imaging study Thyroid nodule Helicobacter pylori gastritis Chronic cough On beta justine at home Nonischemic cardiomyopathy CHF (congestive heart failure) CAD (coronary artery disease) Thrombocytopenia Anemia Chronic GERD Elevated liver enzymes Seropositive rheumatoid arthritis Obesity (BMI 30-39.9) Vitamin D deficiency Dyslipidemia Hypertension 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 Mother No problems noted. Maternal Aunt Diabetes mellitus Social History Household Members: None Housing: Apartment Are you a primary managed care coordinator to a significant other at home: No Do you presently have visiting nurse or other home services: Yes (telephone) Alcohol intake: never Patient Tobacco Use Status: Never used Tobacco service: No Current occupational status: retired Current occupation: rt handed Assessment & Plan Assessment & Plan (1) Diabetes type 1, uncontrolled: Code(s): E10.65 - Type 1 diabetes mellitus with hyperglycemia Plan: Personal Continuous Glucose Monitor: Patients CGM information reviewed, Although glucose levels are still running above target numbers have improved since last visit in September 2024 Patient reports she has not had further prednisone injections for shoulder pain Patient is having increase excursion around 10:00pm, patient reports she drinks juice, and has crackers for snack at night Reviewed with patient how to interpret food labels Suggested to patient she reduce late night snack too low carbohydrate, low carbohydrate snack list in [place] given Recommended patient continue with Tresiba 30 units daily Increased NovoLog sliding scale: Novolog meal insulin 81-150 8 units 151-200 10 units after 200 14 units Reviewed with patient how to treat hypoglycemia with rule of 15s, [place] handout given Patient has upcoming appointment with endocrine JOURNEYMAN LINEMAN on 10/18/2024 Patient agreed to plan. Follow-up with call center nurse in 1 month Patient able to insert sensor independently at home without issue.? Portions of this note were created using voice recognition software, please excuse any words or phrases that may have been misinterpreted. Patient Instructions: Insulina de comida Novolog 81-150 8 unidades 151-200 10 unidades despu?s de 200 14 unidades Coding Level of Care Code Est Pt Level 1 (77547) Diagnoses Diabetes type 1, uncontrolled E10.65
== END 2024-10-16 09:39 | disposition home or self-care (01) ==
LOC: HO.ENCR 08:36
PROVIDERS: PCP Family Medicine; Visit Provider Registered Nurse Diabetes Educator
DX: E10.65 Type 1 diabetes mellitus with hyperglycemia (principal)

== ENCOUNTER → 2024-10-16 08:35 | Outpatient (BNVA) | payer OTHER, SELFPAY | PROVIDERS: PCP Family Medicine; Visit Provider Registered Nurse Diabetes Educator | DX: E10.65 Type 1 diabetes mellitus with hyperglycemia (principal); Z79.4 Long term (current) use of insulin | CPT/HCPCS: 99211 ==

== ENCOUNTER 2024-10-18 08:24 | Outpatient (AMB) | payer OTHER, SELFPAY ==
--- NOTE | 2024-10-18 07:58 | A.OFFVIS_ITS ---
Vital Signs 10/18/24 08:26 Height 5 ft 3 in Weight 138 lb 14.259 oz BMI 24.6 BP 134/74 Blood Pressure Location Rt brachial Position Sitting Pulse 74 Pulse Source Pulse Oximeter Pulse Oximetry (%) 98 Oxygen Delivery Method Room Air Intake Visit Reasons: T2DM Intake Note: Patient presents today for a follow-up on Type 1 Diabetes Mellitus: Last Diabetic eye exam was on: DUE Last Podiatry exam was on: Patient does not see a Mirror Finishing Machine Operator Most recent HbA1c: 8.0%, 08/15/2024 Random Glucose- 129 mg/dL, Today Cold Work Operator Required: Yes Cold Work Operator Language: Shooter'S Helper Services: Cold Work Operator Present Cold Work Operator Name: LILLY Tinsley/ROSANA Information Interpreted: non-clinical & clinical Accompanied by: Self / Same As Patient Allergies No Known Allergies Allergy (Verified 10/18/24 08:29) HPI Comments Details: Patient is a 73-year-old female with DM type 1 diagnosed 2009 who presents for management of diabetes. She was last seen 07/17/24 for diabetes by myself and was recently seen by Sarah Jc CDE and had insulin titrated upward. 10/18/2024 hemoglobin A1c %Previous 07/17/2024 8.8% She is also followed by Dr. Edmond for thyroid. She had an FNA of a nodule which was Afirma negative. Plan to repeat ulrasound in 6 months. She was seen by CDE last July and had discussed going to an ilet insulin pump. Previously had been on Omnipod but had skin reaction to pods. C peptide 0.47 09/2023 Micro and macrovascular complications: CAD, nephropathy Current regime Tresiba 30 units daily Novolog meal insulin 14 units before meals Dexcom average glucose: 238 14 day continuous glucose monitor report reviewed Glucose Managment indicator 9 % Days with CGM data 95 % TIme in ranges: 44 % very high (above 250) 26 % high ?(181-250) 30 % in range ?(70-180] 0 % low (69-55) 0 % ?very low (below 54) Interpretation overall running 70 points over target No retinopathy last eye exam 05/29 has glaucoma No neuropathy: Symptoms reported: denies numbness, tingling, cramping in lower extremities She does have some arthritis pain in her foot. Exercise: limited Chip Bin Operator - CDE education: Has been seen recently. Mirror Finishing Machine Operator: denies Dental exam: has upcoming appointment Ophthalmology evaluation:, last saw optho 05/2023, scheduled 05/29 reports no retinopathy has glacoma has opth next week Has nephropathy; followed by Dr. Sinclair [facility] . eGFR 47.9 12/2023, microalbumin 09/2023 386 last visit he increased her Lasix because of edema and indicated that she will be a good candidate for SGLT2 inhibitor Has non ischemic cardiomyopathy Other specialists: Rhueumatologist [facility] Medical History Polyarticular osteoarthritis Thyroid nodule greater than or equal to 1.5 cm in diameter incidentally noted on imaging study Thyroid nodule Helicobacter pylori gastritis Chronic cough On beta justine at home Nonischemic cardiomyopathy CHF (congestive heart failure) CAD (coronary artery disease) Thrombocytopenia Anemia Chronic GERD Elevated liver enzymes Seropositive rheumatoid arthritis Obesity (BMI 30-39.9) Vitamin D deficiency Dyslipidemia Hypertension 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 Mother No problems noted. Maternal Aunt Diabetes mellitus Social History Household Members: None Housing: Apartment Are you a primary rn transitional care to a significant other at home: No Do you presently have visiting nurse or other home services: Yes (telephone) Alcohol intake: never Patient Tobacco Use Status: Never used Tobacco service: No Current occupational status: retired Current occupation: rt handed Physical Exam Vital Signs: Last Vital Signs Pulse 74 10/18/24 08:26 BP 134/74 10/18/24 08:26 Pulse Ox 98 10/18/24 08:26 Oxygen Delivery Method Room Air 10/18/24 08:26 BMI result Body Mass Index 24.6 Const Other: Absence of Cushingoid features. Absence of acromegalic features. Neck exam reveals nl size thyroid about 15 gms. No thyroid nodules palpable. Heart S1 S2, Reg R/R. No M/R G. Skin exam reveals absence of vitiligo or acanthosis nigricans.trace edema ankles Visual exam of foot performed. No ulcerations or open lesions. No inter digit maceration or fissuring. No onychomycosis, no callouses. Sensation intact to monofilament exam. Vibratory sensation is normal with 128 Hz tuning fork. slight tender ankles Office Procedures Glucose Monitoring Details Details: see hpi 41151 - Glucose monitoring, continuous-physician I&R Procedure code (CPT) selection complete Results Reviewed Results Reviewed: Laboratory Last Values Glucose (Clinic) 129 mg/dL (60-115) H 10/18/24 08:33 Assessment & Plan Assessment & Plan (1) Diabetes type 1, uncontrolled: Code(s): E10.65 - Type 1 diabetes mellitus with hyperglycemia Category: Medical Plan: 73-year-old type 1 diabetic with nephropathy followed by Nephrology and CAD. Most recent sensor download shows an average of 238 indicating a need to increase basal bolus insulin. New dosing Tresiba 34 units NovoLog 16 units t.i.d. At his last visit her rn internship indicated that she would be a good candidate for SGLT2 inhibitor. I typically do not start these on patients with type 2 diabetes. If Nephrology decided this was warranted and started it she would need a dose reduction in her medications. She has follow up in 1 week with clinical nurse educator and she will see be seen back in the office in 3 months' time Glucose tablets were sent today. Orders: Orders AMB Glucose Monitoring Today E10.65 - Type 1 diabetes mellitus with hyperglycemia Medications: Changed From insulin degludec (Tresiba FlexTouch U-200 insulin) 22 units (0.11 mL) subcut DAILY 30 days 6 mL 11RF E10.65 - Type 1 diabetes mellitus with hyperglycemia To insulin degludec (Tresiba FlexTouch U-200 insulin) 34 units (0.17 mL) subcut DAILY 90 days 18 mL 3RF E10.65 - Type 1 diabetes mellitus with hyperglycemia From insulin aspart U-100 (Novolog FlexPen U-100 Insulin aspart) subcutaneously inject 4-7 units 3 times a day; 90 days 21 mL 3RF To insulin aspart U-100 (Novolog FlexPen U-100 Insulin aspart) subcutaneously inject 16-18 units tid with meals 90 days 52 mL 3RF MDD 54 units Patient Instructions: Take 15 carb carbohydrate grams to treat a low sugar (3-4 glucose tablets, half a glass of juice or 15 carbohydrate grams of soft candy such as gummie snacks). Recheck your sugar in 15 minutes and re-treat again with 15 carbohydrate grams if low or still with symptoms. Do not drive a car or operate machinery if you do not know what your blood sugar is, if it is low or in excess of 300. The patient was counseled to achieve a target A1C of 7% (154 avg). Fasting blood sugars should be 90-130 in the morning and less than 180 two hours after meals. Reviewed the relationship between poor diabetic control and the development of complications. Coding Level of Care Code Est Pt Level 4 (53394) Complex EM visit Add On G2211 Diagnoses Diabetes type 1, uncontrolled E10.65 CPT Codes Details - CPT: 80561 - Glucose monitoring, continuous-physician I&R ([id number]) Time Spent (min) 30 Comment Time spent reviewing labs/provider notes, glucose,sensor reports, face to face, chart doc
[2024-10-18 08:26] VITALS: BP 134/74; PULSE 74; O2SAT 98; BMI 24.6
[2024-10-18 08:39] LABS: Glucose, Whole Blood 129 mg/dL (60-115)
--- OUTSIDE RECORDS SUMMARY | 2024-10-18 08:42 | XMS_ITS | Encounter Summary ---
Author Organization [employer] Address [address] [facility] [address] [place] [address] Care Team Providers Care Spool Worker Name Role Phone Gavi Aldana DO Primary Care Provider [phone] Encounter Details Date Type Department Care Team (Latest Contact Info) Description 09/25/2018 Abstract [facility] CONVERSIONS Dental, Provider, DDS Social History [...] Description 12/03/2024 9:00 AM EDT Office Visit [facility] [address] [place] [address] José Miguel Sy DDS [address] [place] [address] documented as of this encounter Visit Diagnoses Not on filedocumented in this encounter Care Teams Spool Worker Relationship Specialty Start Date End Date Gavi Aldana DO [address] [place] [address] PCP - General Family Medicine 06/06/18 documented as of this encounter
--- OUTSIDE RECORDS SUMMARY | 2024-10-18 08:42 | XMS_ITS | Encounter Summary ---
Author Organization [employer] Address [address] [facility] [address] [place] [address] Care Team Providers Care Manager Of Business Operations Name Role Phone Gavi Aldana DO Primary Care Provider + [phone] Encounter Details Date Type Department Care Team (Late st Contact Info) Description 09/14/2023 Orders Only [facility] [address] [place] [address] Provider, MD [place] Social History Tobacco Use [...] Description 12/03/2024 9:00 AM EDT Office Visit [facility] [address] [place], [place] [phone] José Miguel Sy DDS [address] [place], [place] [phone] documented as of this encounter Procedures Procedure [...] documented as of this encounter Care Teams Manager Of Business Operations Relationship Specialty Start Date End Date Gavi Aldana DO [address] [place] [address] PCP - General Family Medicine 06/06/18 documented as of this encounter
--- OUTSIDE RECORDS SUMMARY | 2024-10-18 08:42 | XMS_ITS | Encounter Summary ---
Author Organization [employer] Address [address] [facility] [address] [place] [address] Care Team Providers Care Multiple Drill Operator Name Role Phone Gavi Aldana DO Primary Care Provider [phone] Encounter Details Date Type Department Care Team (Latest Contact Info) Description 03/10/2022 Abstract [facility] CONVERSIONS Dental, Provider, DDS Social [...] Description 12/03/2024 9:00 AM EDT Office Visit [facility] ADULT [facility] [address] [place] [address] José Miguel Sy DDS [address] [place] [address] documented as of this encounter Visit Diagnoses Not on filedocumented in this encounter Care Teams Multiple Drill Operator Relationship Specialty Start Date End Date Gavi Aldana DO [address] [place] [address] PCP - General Family Medicine 06/06/18 documented as of this encounter
--- OUTSIDE RECORDS SUMMARY | 2024-10-18 08:42 | XMS_ITS | Data Portability ---
Author Organization [facility] [place] [facility] [employer] Address [address] [place] [address] Assessment Encounter Date Assessment Date Assessment LastModified by Organization Details LastModified Time 03/17/2023 03/17/2023 As noted, we were called to see this patient regarding concerns of cough. Evaluation in the field was performed by my property handler colleague, as noted above, I provided real-time [...] SNOMED-CT Code Diagnosis ICD10 Code Diagnosis Note [id number] Amparo Marley MD Main - [address] [phone] 03/17/2023 19:40:50 03/17/2023 19:55:52 Health Concerns Section Related Observation LastModified by Organization [employer] LastModified Time None Recorded Concern Status LastModified by Organization Details LastModified Time None Recorded Advance Directives Directive None Recorded Payers Insurance Date Sequence Insurance Name Policy Number Policy Ivy Covered Member ID Ivy Member ID Guarantor Name 05/05/2024 1 [facility] - DOS ON OR AFTER 2022 - DUAL ELIGIBLE - [employer] AND ONE CARE (MEDICARE REPLACEMENT/ADV ANTAGE - HMO) Candi Sanchez [id number] Candi Sanchez Notes Date Note Type Note [...] CRC RN DID NOT NEED FURTHER INFO [facility] [place]PI: 3 weeks, sore throat throughout, cough throughout. dry cough. has never had something like this before. some sour taste, depending on what she ate. no abdominal, a little epigastric burning. Saw provider, got tessalon perles, initially helpful but then. a little congested, sore throat.she has a crabbing machine operator - she is not sure why, thinks b/c at some point she had water on her lungs when living in [place] related to her heart but that hasn't happened in a long time. Amparo Marley MD [address] [facility],[address], [place], [address], [facility] 03/17/2023 19:55:51 OBGyn Episode No OBEpisode recorded.
--- OUTSIDE RECORDS SUMMARY | 2024-10-18 08:43 | XMS_ITS | Clinical Summary ---
Author Organization [employer] Address [address] [facility] [address] [place] [address] Care Team Providers Care Heel Pricker Name Role Phone Gavi Aldana DO Primary Care Provider + [phone] Allergies Active Allergy Reactions Criticality Noted Date [...] FOR COUGH 30 capsule 023 Active Nystop 910094 UNIT/GM powder APPLY TO THE AFFECTED AREA(S) [...] capsule 1 023 Active UltiCare Short Pen [place] 31G X 8 MM misc USE DIRECTED [...] reports she was exposed to Covid-19 at [facility] but she always wears a mask Physical exam wnl Rapid strep, Covid and Flu negative Plan: supportive measures, recommended Tylenol prn, pt to test at home if symptoms do not improve or worsen and notify us if positive or worsening of symptoms Pt verbalized understanding Encounters Date Type Department Care Team Description 10/18/2024 Orders Only GENERIC EXTERNAL DATA DEPARTMENT Provider, Generic External Data 10/10/2024 Orders Only GENERIC EXTERNAL DATA DEPARTMENT Provider, Generic External Data 09/25/2024 Refill [facility] [address] [place] [address] Gavi Aldana DO Acute pain of right shoulder 09/10/2024 Telephone [facility] [address] [place] [phone] Gavi Aldana DO Durable Medical Equipment (DME Script Recliner Chair) 09/04/2024 Orders Only GENERIC EXTERNAL DATA DEPARTMENT Provider, Generic External Data 08/29/[address] [address] Gavi Aldana DO Prior Auth Prescription 08/28/2024 9:00 AM EDT Office Visit [facility] [address] [place] [phone] José Miguel Sy DDS Dental caries (Primary Dx) 08/28/2024 Orders Only [facility] [address] [place] [address] Gavi Aldana DO Microscopic hematuria (Primary Dx) 08/24/[address] [address] Gavi Aldana DO Results 08/24/[address] [address] Gavi Aldana DO Durable Medical Equipment 08/23/2024 Orders Only [facility] External Provider, [facility] 08/15/2024 8:40 AM EDT Office Visit [facility] [address] [place] [address] Veena White NP Acute pain of right shoulder (Primary Dx); Hand swelling from Last 3 Months Immunizations Immunization Administration Dates Next Due Hep B, adult [...] Description 12/03/2024 9:00 AM EDT Office Visit [facility] [address] [place], [place] [phone] José Miguel Sy DDS [address] [place], [place] [phone] Health Maintenance Due Date Last Done Comments [...] Associated Diagnosis Comments GLUCOSE, WHOLE BLOOD Routine 10/18/2024 8:[address] CHEST WO CONTRAST Routine 10/10/2024 12:21 [...] Maintenance Results * (ABNORMAL) Glucose, Whole Blood (10/18/2024 8:33 AM EDT) Glucose, Whole Blood 129(H) 60 - 115 mg/dL [facility] Comment:METER #: [id number] 5Testing performed in the Endocrinology Department [address] , [address], [place]. 10/18/2024 8:33 AM EDT 10/18/2024 8:39 AM EDT us Generic External Data Provider LAB BLOOD ORDERAB LES Final Result [facility] [address] [place] [address] [phone] * CT Chest w/o Contrast (10/10/2024 12:21 PM EDT) Only the most recent of2 resultswithin the time period is included. Anatomical Region Laterality Modality Body, Chest Computed Tomogra phy 10/10/2024 12:2 1 PM EDT Narrative 10/10/2024 12:22 PM EDT ? [facility] ?[address] ?[place] [address] ? CT Scan Report ? Signed ? Patient: Candi Solomon ?MR#: ?? [id number] ? : 1950 ?Acct:[id number] ? Age/Sex: 73 / F ?ADM Date: 10/09/24 ? Loc: HO.CT ? Attending Dr: Jona Lowe MD ? Ordering Physician: Jona Lowe MD ?? Date of Service: 10/09/24 ?? Procedure(s): CT chest wo IV con ?? Accession Number(s): [id number] ? cc: Gavi Aldana DO; Jona Lowe MD ? Report Number: ?? [id number]: Total DLP = ??156.00 mGy-cm ? CLINICAL HISTORY: R91.8 - Other nonspecific abnormal finding of lung field ? CT chest without contrast ? Comparison: CT/MT/SR - CT CHEST WO IV CON - 08/16/24 07:33 EDT ?? CT/MT/SR - CT CHEST WO IV CON - 10/13/23 09:41 EDT ?? CT/MT/SR - CT CHEST WO IV CON - [...] full article can be viewed at: ?? [email or web address] ? Follow up strategies in solid nodules [...] of estimated risk is available at: ?? [email or web address] ? ##PFU## ? This document has been electronically signed by: Josué Burris MD on ?? 10/10/2024 12:21:37 ? Dictated By: ?Josué Burris MD ? Signed By: ?<Electronically signed by Josué Burris MD in OV> ? 10/10/24 1222 ? DD/ 1221 ? TD/TT: 10/10/24 1221 ? Director Of Anesthesia Services: ? Procedure Note Jose Da Silva - 10/10/[address] [address] [address] Scan Report Signed Patient: Candi Solomon EMR#: [id number] : 9Acct:[id number] Age/Sex: 73 / FADM Date: 10/09/24 Loc: HO.CT Attending Dr: Jona Lowe MD Ordering Physician: Jona Lowe MD Date of Service: 10/09/24 Procedure(s): CT chest wo IV con Accession Number(s): [id number] cc: Gavi Aldana DO; Jona Lowe MD Report Number: [id number]: Total DLP = 156.00 mGy-cm CLINICAL HISTORY: R91.8 - Other nonspecific abnormal finding of lung field CT chest without contrast Comparison: CT/MT/SR - CT CHEST WO IV CON - 08/16/24 07:[address]/MT/SR - CT CHEST WO IV CON - 10/13/23 09:[address]/MT/SR - CT CHEST WO IV CON - [...] The full article can be viewed at: [email or web address] Follow up strategies in solid nodules vary [...] 10/10/24 1222 DD/ 1221 TD/TT: 10/10/24 1221 Director Of Anesthesia Services: us [facility] External Provider IMG CT PROCEDURES Final Result * US Retroperitoneal Complete (10/10/2024 10:12 AM EDT) Anatomical Region Laterality Modality Ultrasound 10/10/2024 10:1 2 AM EDT Narrative 10/10/2024 10:44 AM EDT ? [facility] ?[address] ?[place] [address] ? Ultrasound Report ? Signed ? Patient: Sanchez Mueller,[place] ?MR#: ?? [id number] ? : 1950 ?Acct:[id number] ? Age/Sex: 73 / F ?ADM Date: 10/10/24 ? Loc: HO.US ? Attending Dr: Gavi Aldana DO ? Ordering Physician: Gavi Aldana DO ?? Date of Service: 10/10/24 ?? Procedure(s): US retroperitoneal comp ?? Accession Number(s): [id number] ? cc: Gavi Aldana DO ? EXAMINATION: [...] DD/ 1012 ? TD/TT: 10/10/24 1024 ? Director Of Anesthesia Services: ? Procedure Note Donotuseinterpreter, Image - 10/10/2024 [place] [address] Ultrasound Report Signed Patient: Candi Solomon EMR#: [id number] : 9Acct:[id number] Age/Sex: 73 / FADM Date: 10/10/24 Loc: HO.US Attending Dr: Gavi Aldana DO Ordering Physician: Gavi Aldana DO Date of Service: 10/10/24 Procedure(s): US retroperitoneal comp Accession Number(s): [id number] cc: Gavi Aldana DO EXAMINATION: US RETROPERITONEAL [...] 10/10/24 1041 DD/ 1012 TD/TT: 10/10/24 1024 Director Of Anesthesia Services: us Gavi Jovan DO IMG US PROCEDURES Final Resu lt * Creatinine, Serum (10/10/2024 9:13 AM EDT) Creatinine, Serum 0.97 0.5 - 1.4 mg/dL [facility] Estimated Glomerular Filt Rate 56 [facility] Comment:Chronic Kidney Disea se: Estimated GFR < 60 mL/min/1.18h4Uihfpq Kidney Disease: Estimated GFR < 15 mL/min/1.73m2 10/10/2024 9:13 AM EDT 10/10/2024 9:13 AM EDT us Generic External Data Provider LAB BLOOD ORDERAB LES Final Result Performing Organization Address [facility] Co de Phone Number [facility] [address] [place] [phone] * (ABNORMAL) BUN (Blood Urea Nitrogen) (10/10/2024 9:13 AM EDT) Urea Nitrogen (BUN) 28(H) 9 - 16 mg/dL [facility] 10/10/2024 9:13 AM EDT 10/10/2024 9:13 AM EDT us Generic External Data Provider LAB BLOOD ORDERAB LES Final Result Performing Organization Address City/[facility] Co de Phone Number [facility] [address] [place] [phone] * (ABNORMAL) Electrolyte Panel (10/10/2024 9:13 AM EDT) Sodium 139 135 - 145 mmol/L [facility] Potassium 4.1 3.3 - 5.1 mmol/L [facility] Chloride 100 96 - 108 mmol/L [facility] Carbon Dioxide 34(H) 22 - 29 mmol/L [facility] Anion Gap 9(L) 12 - 20 [facility] 10/10/2024 9:13 AM EDT 10/10/2024 9:13 AM EDT us Generic External Data Provider LAB BLOOD ORDERAB LES Final Result [facility] [address] [place] [address] [phone] * T-SPOT??.TB (09/04/2024 9:02 AM EDT) Pathologist [facility] [place] T Spot TB Negative Negative [facility] Comment:A negative test resu lt [...] as aquantitative test. TS PANEL A 0 [facility] TS PANEL B 0 [facility] Negative Control Passed [facility] Positive Control Passed [facility] Comment:For additional infor jared, please refer tohttp://education.MIKA Audio/faq/[email or web address](This link is being provided for informational/educational purposes only.)THIS TEST WAS PERFORMED AT:[email or web address] [place] [address]UOYEUYFAMAIRANI CANTU MD,PHD 09/04/2024 9:02 AM EDT 09/04/2024 9:02 AM EDT Generic External Data Provider LAB BLOOD ORDERAB LES Final Result Performing Organization Address [facility] Co de Phone Number [facility] [address] [place] [phone] * Hepatitis Panel, General (09/04/2024 9:02 AM EDT) Pathologist [facility] [place] Hepatitis A IgM Nonreactive Nonreactive [facility] Comment:IgM antibodies to MCCANN V not detected; does not exclude earlyacute or recovered HAV infection. ~Hepatitis B Surface Antibody REACTIVE Nonreactive [facility] Comment:REACTIVE: > 11.99 mI U/mL Hepatitis B Core Antibody Nonreactive Nonreactive [facility] Hepatitis C Antibody Nonreactive Nonreactive [facility] Comment:Antibodies to HCV no t detected; does not exclude early acuteHCV infection. Hepatitis B Surface Ag Negative Negative [facility] 09/04/2024 9:02 AM EDT 09/04/2024 9:02 AM EDT Generic External Data Provider LAB BLOOD ORDERAB LES Final Result Performing Organization Address [facility] Co de Phone Number [facility] [address] [place] [phone] * (ABNORMAL) CBC auto differential (09/04/2024 9:02 AM EDT) Pathologist [facility] [place] White Blood Count 6.0 4.8 - 10.8 X10*3/uL [facility] Red Blood Count 4.63 4.20 - 5.50 X10*6/uL [facility] Hemoglobin 10.8(L) 12.0 - 16.0 g/dl [facility] Hematocrit 35.1(L) 37.0 - 47.0 % [facility] Mean Corpuscular Volume 75.8(L) 80.0 - 98.0 fL [facility] Mean Corpuscular Hemoglobin 23.3(L) 27.0 - 33.0 pg [facility] Mean Corpuscular HGB Conc 30.8(L) 31.0 - 35.0 g/dl [facility] Red Cell Distribution Width 13.8 11.0 - 16.0 % [facility] Platelet Count 158(L) 160 - 400 X10*3/uL [facility] Mean Platelet Volume 13.0(H) 9.4 - 12.3 fL [facility] Neutrophils Percent Auto 69.9 45 - 73 % [facility] Imm Gran Pct Auto 0.7(H) 0.0 - 0.4 % [facility] Lymphocytes Percent Auto 16.4(L) 20 - 40 % [facility] Monocytes Percent Auto 8.5 2 - 11 % [facility] Eosinophils Percent Auto 3.8 0 - 4 % [facility] Basophils Percent Auto 0.7 0 - 2 % [facility] NRBC Pct Auto 0.0 0.0 - 0.2 /100WBC [facility] Neutrophils Absolute Auto 4.2 2.0 - 8.3 x10*3/uL [facility] Imm Gran Abs Auto 0.04(H) 0.00 - 0.03 X10*3/uL [facility] Lymphocytes Absolute Auto 1.0(L) 1.2 - 4.9 X10*3/uL [facility] Monocytes Absolute Auto 0.5 0.1 - 1.2 X10*3/uL [facility] Eosinophils Absolute Auto 0.2 0.0 - 0.4 X10*3/uL [facility] Basophils Absolute Auto 0.0 0.0 - 0.2 X10*3/uL [facility] NRBC Abs Auto 0.000 0.0 - 0.012 X10*3/uL [facility] 09/04/2024 9:02 AM EDT 09/04/2024 9:02 AM EDT us Generic External Data Provider LAB BLOOD ORDERAB LES Final Result Performing Organization Address [facility] Co de Phone Number [facility] [address] [place] [phone] * (ABNORMAL) Sed Rate by Modified Austinren (09/04/2024 9:02 AM EDT) Erythrocyte Sedimentation Rate 34(H) 0 - 20 MM/HR [facility] Comment:Patients with polycy themia and many hemoglobin abnormalitiesmay have depressed sed rates whereas patients with anemiamay have elevated sed rates. 09/04/2024 9:02 AM EDT 09/04/2024 9:02 AM EDT Generic External Data Provider LAB BLOOD ORDERAB LES Final Result Performing Organization Address [facility] Co de Phone Number [facility] [address] [place] [phone] * C-reactive Protein (09/04/2024 9:02 AM EDT) C Reactive Protein 0.46 < or = 0.50 mg/dL [facility] 09/04/2024 9:02 AM EDT 09/04/2024 9:02 AM EDT Generic External Data Provider LAB BLOOD ORDERAB LES Final Result Performing Organization Address [facility] Co de Phone Number [facility] [address] [place] [phone] * TSH (09/04/2024 9:02 AM EDT) Thyroid Stimulating Hormone 1.41 0.32 - 4.0 uIU/mL [facility] Comment:TSH 3rd Generation ( [facility]) 09/04/2024 9:02 AM EDT 09/04/2024 9:02 AM EDT Generic External Data Provider LAB BLOOD ORDERAB LES Final Result Performing Organization Address [facility]/ZIP Co de Phone Number [facility] [address] [place] [address] [phone] * T4, Free (09/04/2024 9:02 AM EDT) Free T4 (Free Thyroxine) 1.31 0.71 - 1.85 ng/dL [facility] 09/04/2024 9:02 AM EDT 09/04/2024 9:02 AM EDT Generic External Data Provider LAB BLOOD ORDERAB LES Final Result Performing Organization Address [facility] de Phone Number [facility] [address] [place] [address] [phone] * (ABNORMAL) Comprehensive Metabolic Panel (09/04/2024 9:02 AM EDT) [facility] Sodium 141 135 - 145 mmol/L [facility] Potassium 3.7 3.3 - 5.1 mmol/L [facility] Chloride 110(H) 96 - 108 mmol/L [facility] Carbon Dioxide 29 22 - 29 mmol/L [facility] Anion Gap 6(L) 12 - 20 [facility] Urea Nitrogen (BUN) 14 9 - 16 mg/dL [facility] Creatinine, Serum 0.76 0.5 - 1.4 mg/dL [facility] Estimated Glomerular Filt Rate >60 [facility] Comment:Chronic Kidney Disea se: Estimated GFR < 60 mL/min/1.59c4Djuwdq Kidney Disease: Estimated GFR < 15 mL/min/1.73m2 Glucose 166(H) 60 - 115 mg/dL [facility] Calcium 9.3 8.4 - 10.2 mg/dL [facility] Bilirubin, Total 0.3 0.0 - 1.0 mg/dL [facility] Aspartate Amino Transferase 26 5 - 31 U/L [facility] Alanine Aminotransferase 15 0 - 31 U/L [facility] Total Protein 6.8 6.5 - 8.0 g/dL [facility] Albumin Level 3.0(L) 3.5 - 5.0 g/dL [facility] Alkaline Phosphatase 118(H) 39 - 117 U/L [facility] 09/04/2024 9:02 AM EDT 09/04/2024 9:02 AM EDT us Generic External Data Provider LAB BLOOD ORDERAB LES Final Result Performing Organization Address [facility]/ZIP Co de Phone Number [facility] [address] [place] [phone] [phone] * (ABNORMAL) Basic Metabolic Panel (08/28/2024 10:10 AM EDT) Sodium 139 135 - 145 mmol/L [facility] Potassium 3.9 3.3 - 5.1 mmol/L [facility] Chloride 106 96 - 108 mmol/L [facility] Carbon Dioxide 28 22 - 29 mmol/L [facility] Anion Gap 9(L) 12 - 20 [facility] Urea Nitrogen (BUN) 17(H) 9 - 16 mg/dL [facility] Creatinine, Serum 0.78 0.5 - 1.4 mg/dL [facility] Estimated Glomerular Filt Rate >60 [facility] Comment:Chronic Kidney Disea se: Estimated GFR < 60 mL/min/1.17z8Udmemv Kidney Disease: Estimated GFR < 15 mL/min/1.73m2 Glucose 298(H) 60 - 115 mg/dL [facility] Calcium 8.9 8.4 - 10.2 mg/dL [facility] Blood Venous blood specimen / Unknown 08/28/2024 10:10 AM EDT 08/28/2024 11:12 AM EDT us Gavi Aldana DO LAB BLOOD ORDERABLES Final R esult Performing Organization Address [facility]/ZIP Co de Phone Number [facility] [address] [place] [phone] * Cytopath-cell enhanced (08/28/2024 10:09 AM EDT) 08/28/2024 10:0 9 AM EDT 08/29/2024 6:10 AM EDT [facility] - 08/31/2024 11:09 AM EDT ----- ------- Name: Candi Solomon ? Age/Sex: 73/F ? : 1950 Unit#: [id number] ?? Attend Dr: Gavi Aldana DO ?Re08/28/24 ?Status: DEP REF ? Location: HO.HHCL ? Disch: ? ----- ------- SPEC : [id number] ? RECD: 08/29/24-609 ? STATUS: ??SOUT ? REQ NUM: [id number] ? MILNA: 08/28/24-1008 ? SUBM DR: Gavi Aldana DO ? ENTERED: ??08/29/24-645 ?SP TYPE: Cytology ? OTHR : ? [...] (signature on file) Arlin Ogden MD 08/31/24 7771 ? ----- ------- ? END OF REPORT ? us Gavi Aldana DO LAB CYTOLOGY ORDERABLES Karina l Result [facility] [address] [place] [address] [phone] * US Thyroid (08/23/2024 9:44 AM EDT) Anatomical Region Laterality Modality Head, Neck Ultrasound 08/23/2024 9:44 AM EDT Narrative 08/23/2024 3:29 PM EDT ? [facility] ?[address] ?[place] [address] ? Ultrasound Report ? Signed ? Patient: Sanchez Candi Mueller ?MR#: ?? [id number] ? : 1950 ?Acct:[id number] ? Age/Sex: 73 / F ?ADM Date: 08/23/24 ? Loc: HO.US ? Attending Dr: Shruthi Cui MD ? Ordering Physician: Shruthi Cui MD ?? Date of Service: 08/23/24 ?? Procedure(s): US thyroid ?? Accession Number(s): [id number] ? cc: Gavi Aldana DO; Shruthi Cui [...] or equal to 1 cm: 4. ?? Position Clerk nodules are described as follows: ? 1. [...] PM EDT RP ? Dictated By: ?Vladislav aHskins MD ? Signed By: ?<Electronically signed by Vladislav Haskins MD in OV> ?08/23/24 1525 ? DD/ 0944 ? TD/TT: 08/23/24 0955 ? Director Of Anesthesia Services: MSM ? Procedure Note Jose Da Silva - 08/23/[address] [address] Ultrasound Report Signed Patient: Candi Solomon EMR#: [id number] : 9Acct:[id number] Age/Sex: 73 / FADM Date: 08/23/24 Loc: HO.US Attending Dr: Shruthi Cui MD Ordering Physician: Shruthi Cui MD Date of Service: 08/23/24 Procedure(s): US thyroid Accession Number(s): [id number] cc: Gavi Aldana DO; Shruthi Cui MD [...] than or equal to 1 cm: 4. Position Clerk nodules are described as follows: 1. Location: [...] 08/23/24 1525 DD/ 0944 TD/TT: 08/23/24 0955 Director Of Anesthesia Services: LULY us [facility] External Provider IMG US PROCEDURES Final Result * CT Head w/o Contrast (08/17/2024 9:09 AM EDT) Anatomical Region Laterality Modality Head, Neck Computed Tomogra phy 08/17/2024 9:09 AM EDT Narrative 08/17/2024 9:11 AM EDT ? [facility] ?[address] ?[place] [address] ? CT Scan Report ? Signed ? Patient: Sanchez Mueller,[place] ?MR#: ?? [id number] ? : 1950 ?Acct:[id number] ? Age/Sex: 73 / F ?ADM Date: 08/16/24 ? Loc: HO.CT ? Attending Dr: Gavi Aldana DO ? Ordering Physician: Gavi Aldana DO ?? Date of Service: 08/16/24 ?? Procedure(s): CT head/brain wo IV con ?? Accession Number(s): [id number] ? cc: Gavi Aldana DO ? Report Number: ?? [id number]: Total DLP = ??715.00 mGy-cm ? CLINICAL [...] DD/ 0909 ? TD/TT: 08/17/24 0909 ? Director Of Anesthesia Services: ? Procedure Note Rekha, Image - 08/17/[address] [address] [address] Scan Report Signed Patient: Candi Solomon EMR#: [id number] : 9Acct:[id number] Age/Sex: 73 / FADM Date: 08/16/24 Loc: HO.CT Attending Dr: Gavi Aldana DO Ordering Physician: Gavi Aldana DO Date of Service: 08/16/24 Procedure(s): CT head/brain wo IV con Accession Number(s): [id number] cc: SamanthasusanAdelineGavi Agata [place] Report Number: [id number]: Total DLP = 715.00 mGy-cm CLINICAL HISTORY: [...] in OV> 08/17/24909 DD/ 8 TD/TT: 08/17/24908 Director Of Anesthesia Services: Gavi Aldana DO IMG CT PROCEDURES Final Resu lt * Vitamin B12 (Cobalamin) and Folate Panel, Serum (08/15/2024 9:43 AM EDT) Vitamin B12 726 200 - 900 pg/mL [facility] Comment:NORMAL 200-900 PG/ML INDETERMINATE 160-199 PG/ML DEFICIENT < 160 PG/ML Folate 10.0 > or = 4.0 ng/mL [facility] Comment:Reference Values:> o r = [...] ORDERABLES Final R esult Performing Organization Address [facility]/ZIP Co de Phone Number [facility] [address] [place] [phone] * RPR (Monitor) with Reflex to??Titer (08/15/2024 9:43 AM EDT) RPR (Monitor) w/Refl Titer NON-REACTI VE NON-REACT CAPRICE [facility] Comment:THIS TEST WAS PERFOR MED AT:[facility] [place] [id number] ULLOA MD Rapid Plasma Reagin Ab Titer TNP [facility] Blood Venous blood specimen / Unknown 08/15/2024 9:43 AM EDT 08/15/2024 11:45 AM EDT Gavi SinghResoomay LAB BLOOD ORDERABLES Final R esult Performing Organization Address [facility] Co de Phone Number [facility] [address] [place] [phone] * (ABNORMAL) Hemoglobin A1c (08/15/2024 9:43 AM EDT) Hemoglobin A1c 8.0(H) <6.0 % [facility] Comment:Hemoglobin A1C Refer ence Range Adults: 4.8 - 6.0 % Non diabetic: < 6.0 % Goal: < 7.0 %Additional Action Suggested: > 8.0 %Note: Hemoglobin A1c results are invalid for patients with abnormal amounts of HbF. Blood transfusions may impact the HbA1c concentration in the patient sample. Estimated Average Glucose 183 mg/dL [facility] Comment:eAG = Estimated ave rage glucose which is %A1C expressed asaverage glucose, using the formula of the H9E-ZqscmxmWzaaheu Glucose study (ADAG), Diabetes Care, Vol.31,#8,2007 Blood Venous blood specimen / Unknown 08/15/2024 9:43 AM EDT 08/15/2024 11:45 AM EDT us Gavi Aldana DO LAB BLOOD ORDERABLES Final R esult Performing Organization Address City/[facility]/ZIP Co de Phone Number [facility] [address] [place] [phone] * (ABNORMAL) Urinalysis Complete (08/15/2024 9:42 AM EDT) Color Urine Dark Yellow [facility] Appearance Urine Clear [facility] PH 5.5 5.0 - 9.0 [facility] Glucose Urine UA Negative Negative mg/dL [facility] Urine Blood Small (1+)(A) Negative [facility] Specific [place] - Urine >=1.030(H) 1.005 - 1.025 [facility] Urine Protein 300 (3+)(A) Neg-Trace mg/dL [facility] Urine Ketones Trace Negative mg/dL [facility] Nitrite Urine Negative Negative [facility] Leukocyte Esterase Urine Negative Negative [facility] RBC Urine >20(A) 0 - 2 /HPF [facility] Urine WBC 0-5 0 - 5 /HPF [facility] Urine Squamous Epithelial Cell 0-2 0 - 2 /HPF [facility] Urine Bacteria None Seen None Seen [facility] Hyaline Casts, Urine 3-5 0 - 2 /LPF [facility] Urine (Urine, Random) 08/15/2024 9:42 AM EDT 08/15/2024 11:25 AM EDT us Gavi Aldana DO LAB URINE ORDERABLES Final R esult [facility] [address] [place] [address] [phone] * Lipid Panel, Standard (09/20/2023 7:27 AM EDT) Triglycerides 96 <150 mg/dL [facility] Comment:Desirable Triglyceri de: less than 150 mg/dLBorderline High Triglyceride 150-199 mg/dLHigh Triglyceride: 200-499 mg/dLVery High Triglyceride: greater than or equal to 5OO mg/dL Cholesterol 139 <200 mg/dL [facility] Comment:Desirable Cholestero l: less than 200 mg/dLBorderline High Cholesterol: 200-239 mg/dLHigh Cholesterol: greater than 239 mg/dL LDL Cholesterol Calculated 69 <100 mg/dL [facility] Comment:Desirable LDL: less than 100 mg/dLNear Optimal/Above Optimal LDL: 110- 129 mg/dLBorderline High LDL: 130-159 mg/dLHigh LDL: 160-189 mg/dLVery High LDL: greater than or equal to 190 mg/dL HDL Cholesterol 51 >40 mg/dL [facility] Comment:Desirable HDL: great er than 40 mg/dL Note: This HDL assay may give artificially low results in patients with liver disease. Blood Venous blood specimen / Unknown 09/20/2023 7:27 AM EDT 09/20/2023 7:27 AM EDT us Gavi Aldana DO LAB BLOOD ORDERABLES Final R esult [facility] [address] [place] [phone] * (ABNORMAL) Albumin, Random Urine W/Creatinine (09/20/2023 7:23 AM EDT) Creatinine, Urine 211.65 mg/dL [facility] Microalbumin Urine 817.0 mg/L [facility] Microalbum Creatinine Ratio Ur 386.0(H) <30 ug/mg cr [facility] Comment:Albumin/Creatinine R atio Reference Ranges: Normal: < 30 ug/mg creatinine Microalbuminuria: 30 - 300 ug/mg creatinineClinical Albuminuria: > 300 ug/mg creatinine Urine (Urine, Random) 09/20/2023 7:23 AM EDT 09/20/2023 7:41 AM EDT us Gavi Aldana DO LAB URINE ORDERABLES Final R esult [facility] [address] [place] [address] [phone] * Hm Colonoscopy (07/28/2021 2:52 PM EST) us Historical Provider MD HEALTH MAINTENANCE Final Result from Last 3 Months or Most Recently Relevant to Health Maintenance Insurance [facility] (O D-SNP) DENTAL [facility] Care Teams Heel Pricker Relationship Specialty Start Date End Date Gavi Aldana DO [address] [place] [phone] PCP - General Family Medicine 06/06/18
--- OUTSIDE RECORDS SUMMARY | 2024-10-18 08:43 | XMS_ITS | Encounter Summary ---
Author Organization [employer] Address [address] [facility] [address] [place] [address] Care Team Providers Care Boat Builder Name Role Phone Gavi Aldana DO Primary Care Provider + [phone] Reason for Visit * Reason Comments Med Refill Encounter Details Date Type Department Care Team ([facility] st Contact Info) Description 04/04/2024 Refill [facility] MEDICINE [address] [place], [place] [phone] Gavi Aldana DO [address] [place], [place] [phone] Social History Tobacco Use Types Packs/Day Years [...] Description 12/03/2024 9:00 AM EDT Office Visit [facility] ADULT DENTAL [address] [place] [address] José Miguel Sy DDS [address] [place] [address] documented as of this encounter Visit Diagnoses Not on filedocumented in this encounter Additional Health Concerns Assessment Noted Time PHQ-9 Depression Total Score: 1 06/15/19 24 10:29 AM EST documented as of this encounter Care Teams Boat Builder Relationship Specialty Start Date End Date Gavi Aldana DO [address] [place] [address] PCP - General Family Medicine 06/06/18 documented as of this encounter
--- OUTSIDE RECORDS SUMMARY | 2024-10-18 08:43 | XMS_ITS | Encounter Summary ---
Author Organization [employer] [facility] Address [address] [facility] 7t [place] [address] Care Team Providers Care Database Manager Name Role Phone Gavi Aldana DO Primary Care Provider [phone] Encounter Details Date Type Department Care Team (Late st Contact Info) Description 06/22/2022 Orders Only [facility] MEDICINE [address] [place] [address] Tamara Floyd LPN Social History Tobacco Use [...] Description 12/03/2024 9:00 AM EDT Office Visit [facility] ADULT DENTAL [address] [place] [address] José Miguel Sy DDS [address] [place], [place] [phone] documented as of this encounter Procedures Procedure Name Priority Date/Time Associated Diagnosis Comments GLUCOSE, WHOLE BLOOD Routine 07/06/2022 10:44 AM EST documented in this encounter Results * (ABNORMAL) Glucose, Whole Blood (07/06/2022 10:44 AM EST) Glucose, Whole Blood 204(H) 60 - 115 mg/dL [facility] Comment:METER #: [id number] 5Testing performed in the Endocrinology Department [address] , [address], [facility]. 07/06/2022 10:4 4 AM EST 07/06/2022 10:48 AM EST us [facility] External Provider LAB BLO OD ORDERABLES Final Result Performing Organization Address City/State/[facility] Co de Phone Number [facility] [address] [place] [address] [phone] documented in this encounter Visit Diagnoses Not on filedocumented in this encounter Care Teams Database Manager Relationship Specialty Start Date End Date Gavi Aldana DO [address] [place] [address] PCP - General Family Medicine 06/06/18 documented as of this encounter
--- OUTSIDE RECORDS SUMMARY | 2024-10-18 08:43 | XMS_ITS | Data Portability ---
Author Organization [place] [facility] Address [address] [facility] [address] [place] [address] Care Team Providers Care Foster Care Therapist Name Role Phone MARTINEZ VIZCARRA Primary Care [...] copy of the audiogram, a list of [facility] hearing aid providers, and medical clearance [...] Organization Details Recorded Time Dizziness and giddiness [id number] Active 2018 Dizziness and giddiness ; Note: Date Diagnosed : 01/25/2019 11:02 AM (R42) Not Available [facility] 4 02:39:47 Impacted cerumen of bilateral ears 49344783796 21784 Active 2018 Impacted cerumen, bilateral ; Note: Date Diagnosed : 01/25/2019 11:05 AM (H61.23) Not Available [facility] 4 02:39:43 Bilateral tinnitus 57105826801 02 Active 2018 Tinnitus, bilateral ; Note: Date Diagnosed : 01/25/2019 11:24 AM (H93.13) Not Available [facility] 4 02:39:43 Cough 84183670 Active 2020 Cough, unspecifi ed; Note: Changed from R05 to R05.9 ( 4 9:23 AM) , Date Diagnosed : 02/11/2021 10:17 AM (R05) WYATT NAVA MD [address] [place] [address], [phone] , [facility] - [facility] 4 10:02:57 Benign paroxysma l positiona l vertigo 164114032 Active 2018 Benign paroxysma l vertigo, unspecifi ed ear; Note: Date Diagnosed : 01/25/2019 11:03 AM (H81.10) Not Available [facility] 4 02:39:53 Sensorine ural hearing loss of bilateral ears 113928319 Active 2018 Sensorine ural hearing loss, bilateral ; Note: Date Diagnosed : 01/25/2019 11:24 AM (H90.3) Not Available [facility] 4 02:39:48 Gastroeso phageal reflux disease without esophagit is 043770186 Active 2023 Gastro-es ophageal reflux disease without esophagit is; Note: Date Diagnosed : 08/25/2023 10:32 AM (K21.9) Not Available [facility] 02:39:48 Allergic rhinitis 46184324 Active 2023 Allergic rhinitis, unspecifi ed; Note: Date Diagnosed : 08/01/2023 10:25 AM (J30.9) Not Available [facility] 02:39:50 Nasal congestio n 88054109 Active 2023 Nasal congestio n; Note: Date Diagnosed : 08/01/2023 10:25 AM (R09.81) Not Available [facility] 02:39:53 Problem Notes None recorded. Procedures Surgical History Date Name Laterality Status Provider Name and Address Organization Details Recorded Time 07/30/19 25 Wax_DP completed WYATT NAVA MD [address] [place] [address], [phone], [facility] 07/30/2024 08:53:51 07/30/19 25 Air only Audio - 16432 completed [employer] [address], [address], [facility] 07/30/2024 09:17:09 07/30/19 25 Tympanometry - 42604 completed [employer] [address], [address], [facility] 07/30/2024 09:17:15 Imaging Results Imaging Date Name Status LastModified by [facility] Details LastModified Time 07/30/2024 audiogram completed [...] mg tablet 04/27 completed Medicati on ID: [id number] B rand Name: atorvast atin Sen d Method: E-Prescr ibed Sub s Allowed: subs OK Speci al Instruct ion: TOME PRAVEEN TABLETA TODOS LOS D AL ACOSTARS E Medica tionGene ricName: atorvast atin Not Available Not Available Not Available Vitamin C 500 mg tablet active Medicati on ID: [id number] B rand Name: Vitamin C Send Method: [...] layed release 02/11 completed Medicati on ID: [id number] D uration Value: 90 Brand Name: aspirin Send Method: E-Prescr ibed Sub s Allowed: subs OK Speci al Instruct ion: TOME PRAVEEN TABLETA POR V?A ORAL TODOS LOS D? Med icationG enericNa me: aspirin Not Available Not Available Not Available tramadol 50 mg tablet active Medicati on ID: [id number] B rand Name: tramadol Send Method: E-Prescr ibed Sub s Allowed: subs OK Medic ationGen ericName : tramadol Not Available Not Available Not Available spironola ctone 25 mg tablet active Medicati on ID: [id number] B rand Name: spironol actone S end [...] 10 mg tablet active Medicati on ID: [id number] B rand Name: baclofen Send Method: E-Prescr ibed Sub s Allowed: subs OK Speci al Instruct ion: TAKE 1 TABLET BY MOUTH 3 TIMES EVERY DAY NEEDED FOR MUSCLE SPASM/PA IN [facility] ericName : baclofen Not Available Not Available Not Available benzonata te 100 mg capsule TAKE 1 CAPSULE BY MOUTH THREE TIMES DAILY NEEDED FOR COUGH active Not Available Not Available No t Available pantopraz ole 40 mg tablet,de layed release active Medicati on ID: 781881 B rand Name: pantopra zole Sen d Method: E-Prescr ibed Sub s Allowed: subs OK [facility] ericName : pantopra zole Not Available Not Available Not Available ferrous sulfate 325 mg (65 mg iron) tablet 04/27 completed Medicati on ID: [id number] B rand Name: ferrous sulfate Send Method: [...] mg tablet 02/11 completed Medicati on ID: [id number] D uration Value: 90 Brand Name: metoprol [...] (0.125 mg) tablet active Medicati on ID: 127765 B rand Name: digoxin Send Method: E-Prescr [...] mg capsule 02/11 completed Medicati on ID: [id number] B rand Name: gabapent in Send Method: E-Prescr ibed Sub s Allowed: subs OK Medic ationGen ericName : gabapent in Not Available Not Available Not Available Novolog U-100 Insulin aspart 100 unit/mL subcutane ous solution active Medicati on ID: 409461 B rand Name: Novolog U-100 Insulin aspart S end Method: E-Prescr ibed Sub s Allowed: subs OK Speci al Instruct ion: UP TO 100 UNITS VIA INSULIN PUMP SUBCUT DAILY Me dication GenericN norma: Novolog U-100 Insulin aspart Not Available Not Available Not Available nystatin 100,000 unit/gram topical powder 04/27 completed Medicati on ID: 472831 B rand Name: nystatin Send Method: E-Prescr ibed Sub s Allowed: subs OK Speci al Instruct ion: APLIQUE AL LIAT AFECTADA DOS VECES AL D A Medica tionGene ricName: nystatin Not Available Not Available Not Available albuterol sulfate HFA 90 mcg/actua tion aerosol inhaler 02/11 completed Medicati on ID: [id number] B rand Name: albutero l sulfate Send Method: E-Prescr ibed Sub s Allowed: subs OK Speci al Instruct ion: TOME DOS INHALACI ONES POR V A ORAL CADA CUATRO A SEIS HORAS CUANDO SEA NECESARI O Medica tionGene ricName: albutero l sulfate Not Available Not Available Not Available fluticaso ne propionat e 50 mcg/actua tion nasal spray,lalo pension active Medicati on ID: 245547 B rand Name: fluticas one propiona te [...] 40 mg tablet active Medicati on ID: 191048 B rand Name: valsarta n Send Method: [...] mg-50 mg tablet active Medicati on ID: 235672 B rand Name: Senna Plus Sen d [...] ion nasal spray active Medicati on ID: [id number] B rand Name: Narcan S end Method: [...] pen injector 02/11 completed Medicati on ID: [id number] D uration Value: 30 Brand Name: Ozempic [...] Available Not Available Not Available Dexcom G7 Product Managent Intern USE DIRECTED active Not Available Not Available [...] Updated DateTime 04/27/2024 149.86 cm 26.7 kg/m2 79949.19 g Susy Vera [place] [facility] 04/27/2024 09:48:20 Date Recorded Body height Body mass index (BMI) Body weight Provider Name and Address Organization Details Last Updated DateTime 07/30/2024 149.86 cm 26.7 kg/m2 36620.19 g Nash Manish [place] [facility] 07/30/2024 08:41:37 Social History None recorded. Functional Status None recorded. Mental Status None recorded. Family History Nothing Reported. Medical History Condition Response Diabetes Y Gynecological HistoryNo gynecological history recorded. Obstetrics History GPAL:G 0 P 0 0 0 0 Past Encounters Encounter ID Performer Location Encounter Start Date Encounter Closed Date Diagnosis/Indication Diagnosis SNOMED-CT Code Diagnosis ICD10 Code Diagnosis Note [id number] WYATT NAVA MD [facility] [address] [phone] 04/27/2024 09:29:27 04/27/2024 10:08:17 Cough 45917101 R05.9 Sensorineu ral hearing loss of bilateral ears 681835084 H90.3 [id number] WYATT NAVA MD [facility] [address] [phone] 07/30/2024 08:36:37 07/30/2024 09:43:52 Sensorineural hearing loss of bilateral ears 343169056 H90.3 Audiologic al evaluation results: Right ear: [...] seal}} Impacted c erumen of bilateral ears 7320118746 440959 H61.23 Ears were meticulous ly cleaned bilaterall [...] Ivy Member ID Guarantor Name 04/27/2024 1 [facility] (MEDICARE REPLACEMENT/ADV ANTAGE - HMO) Candi Sanchez [id number] Candi Sanchez 05/02/2024 2 [facility] [facility] - [facility] [place] (MEDICARE REPLACEMENT/ADV ANTAGE - HMO) Candi Sanchez [id number] Candi Sanchez 07/30/2024 1 [facility] - DOS ON OR AFTER 2022 - DUAL ELIGIBLE - MEDICARE ADVANTAGE [place] (MEDICARE REPLACEMENT/ADV ANTAGE - HMO) Candi Sanchez [id number] Candi Sanchez 07/30/2024 1 [facility] - DOS ON OR AFTER 2022 - NURSING HOME OPTIONS (MEDICARE REPLACEMENT/ADV ANTAGE - HMO) Candi Sanchez [id number] Candi Sanchez Notes Date Note Type Note [...] pills. Rx famotidine WYATT NAVA MD [address] [facility],[place] [address], [place], [address], [place] [facility] 04/27/2024 10:06:17 07/30/2024 text/html IPad - Spanishhe aring lossdid not pursue hearing aids in past year 08/01/23 Dr Kern audiomild sloping to severe B SNHLcleared for B HAE PV 04/27/24 Iris - cough - improved with meds from pulm WYATT NAVA MD [address] [facility],[place] [address], [place], [address], [facility] - [facility] 07/30/2024 09:42:27 OBGyn Episode No OBEpisode recorded.
--- OUTSIDE RECORDS SUMMARY | 2024-10-18 08:43 | XMS_ITS | Encounter Summary ---
Author Organization [employer] [facility] Address [address] [place] [address] [address] [place] [address] Care Team Providers Care Stem Crusher Name Role Phone Gavi Aldana DO Primary Care Provider [phone] Reason for Visit * Reason Comments Med Refill Encounter Details Date Type Department Care Team ([facility] Contact Info) Description 10/11/2022 Refill [facility] MEDICINE [address] [place] [address] Gavi Aldana DO [address] [place] [address] Other chronic pain Social History Tobacco Use [...] Upcoming Encounters Date Type Department Care Team ([facility] Contact Info) Description 12/03/2024 9:00 AM EDT Office Visit [facility] ADULT DENTAL [address] [place] [address] José Miguel Sy DDS [address] [place] [address] documented as of this encounter Visit Diagnoses Diagnosis Other chronic pain documented in this encounter Care Teams Stem Crusher Relationship Specialty Start Date End Date Gavi Aldana DO [address] [place] [address] PCP - General Family Medicine 06/06/18 documented as of this encounter
--- OUTSIDE RECORDS SUMMARY | 2024-10-18 08:43 | XMS_ITS | Encounter Summary ---
Author Organization [employer] Address [address] [facility] [address] [place] [address] Care Team Providers Care Aerosol Supervisor Name Role Phone Gavi Aldana DO Primary Care Provider [phone] Encounter Details Date Type Department Care Team (Late Contact Info) Description 07/22/2022 Orders Only [facility] CHC MED & PEDS [address] [place] [address] Gavi Duarte LPN Social History Tobacco Use [...] Description 12/03/2024 9:00 AM EDT Office Visit [facility] ADULT DENTAL [address] [place] [address] José Miguel Sy DDS [address] [place] [address] documented as of this encounter Visit Diagnoses Not on filedocumented in this encounter Care Teams Aerosol Supervisor Relationship Specialty Start Date End Date Gavi Aldana DO [address] [place] [address] PCP - General Family Medicine 06/06/18 documented as of this encounter
--- OUTSIDE RECORDS SUMMARY | 2024-10-18 08:43 | XMS_ITS | Encounter Summary ---
Author Organization [employer] Address [address] [facility] [address] [place] [address] Care Team Providers Care Apprentice Lineman Third Step Name Role Phone Gavi Aldana DO Primary Care Provider [phone] Encounter Details Date Type Department Care Team (Late Contact Info) Description 12/14/2022 Orders Only [facility] CHC MED & PEDS [address] [place] [address] Gavi Duarte LPN Social History Tobacco Use [...] 9:00 AM EDT Office Visit [facility] ADULT DENTAL [address] [place] [address] José Miguel Sy DDS [address] [place] [address] documented as of this encounter Visit Diagnoses Not on filedocumented in this encounter Care Teams Apprentice Lineman Third Step Relationship Specialty Start Date End Date Gavi Aldana DO [address] [place] [address] PCP - General Family Medicine 06/06/18 documented as of this encounter
== END 2024-10-18 08:51 | disposition home or self-care (01) ==
LOC: HO.ENCR 08:24
PROVIDERS: PCP Family Medicine; Visit Provider Nurse Practitioner Adult Health
DX: E10.65 Type 1 diabetes mellitus with hyperglycemia (principal)
CPT/HCPCS: 95251; 99214

== ENCOUNTER → 2024-10-18 08:24 | Outpatient (BNVA) | payer OTHER, SELFPAY | PROVIDERS: PCP Family Medicine; Visit Provider Nurse Practitioner Adult Health | DX: E10.65 Type 1 diabetes mellitus with hyperglycemia (principal); Z79.4 Long term (current) use of insulin | CPT/HCPCS: 82947; 99212 ==

== ENCOUNTER 2024-10-31 09:07 | Outpatient (AMB) | payer OTHER, SELFPAY ==
--- OUTSIDE RECORDS SUMMARY | 2024-10-31 09:42 | XMS_ITS | Encounter Summary ---
Author Organization [employer] [facility] Address [address] [place] [address] [address] [place] [address] Care Team Providers Care Rn Clinical Documentation Name Role Phone Gavi Aldana DO Primary Care Provider +[phone] Encounter Details Date Type Department Care Team (Latest Contact Info) Description 03/10/2022 Abstract [facility] CONVERSIONS Dental, Provider, DDS Social [...] Description 12/03/2024 9:00 AM EDT Office Visit [facility] ADULT DENTAL [address] [place] [address] José Miguel Sy DDS [address] [place] [address] documented as of this encounter Visit Diagnoses Not on filedocumented in this encounter Care Teams Rn Clinical Documentation Relationship Specialty Start Date End Date Gavi Aldana DO [address] [place] [address] PCP - General Family Medicine 06/06/18 documented as of this encounter
[2024-10-31 10:11] VITALS: BP 122/70; PULSE 73; O2SAT 99; BMI 24.3
--- NOTE | 2024-10-31 10:11 | HO.NEPHOV_ITS ---
Vital Signs 10/31/24 10:11 Height 5 ft 3 in Weight 137 lb BMI 24.3 BP 122/70 Blood Pressure Location Rt brachial Position Sitting Pulse 73 Pulse Source Pulse Oximeter Pulse Oximetry (%) 99 Oxygen Delivery Method Room Air Intake Visit Reasons: 1 MO [facility] Sewing Pattern Layout Technician Required: Yes Accompanied by: CONTINUOUS MINER OPERATOR Allergies No Known Allergies Allergy (Verified 10/31/24 10:13) HPI Comments Details: I had the pleasure of seeing Candi in follow up for proteinuria. She is a longstanding diabetic with poor glycemic control. She is followed by endocrinology. She has history of hypertension and nonischemic cardiomyopathy. She does not have any chest pain, shortness of breath, paroxysmal nocturnal dyspnea, orthopnea, urinary symptoms, hematuria, sensorineural deafness, orthostatic symptoms, epistaxis, hemoptysis, photosensitivity, joint swellings, skin rashes. She is known to have rheumatoid arthritis and is on methotrexate. She has been taking omeprazole for a long time. Her blood pressure has been at goal. She denies taking excessive nonsteroidal anti-inflammatories. She is on Entresto. Her renal functions had been normal and stable at baseline. She does not have any new bone or back pain. automotive parts interpreter was used during this encounter. Family member was also physically present at that time. 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 Mother No problems noted. Maternal Aunt Diabetes mellitus Social History Household Members: None Housing: Apartment Are you a primary client care coordinator to a significant other at home: No Do you presently have visiting nurse or other home services: Yes (telephone) Alcohol intake: never Patient Tobacco Use Status: Never used Tobacco service: No Current occupational status: retired Current occupation: rt handed Review of Systems Const All systems reviewed & are unremarkable except as noted in HPI and below Physical Exam Vital Signs: Last Vital Signs Pulse 73 10/31/24 10:11 BP 122/70 10/31/24 10:11 Pulse Ox 99 10/31/24 10:11 Oxygen Delivery Method Room Air 10/31/24 10:11 BMI result Body Mass Index 24.3 Const General: comfortable and no acute distress Orientation/consciousness: patient oriented x3 HEENT Head: Yes normocephalic Mouth: Normal oral and palatal mucosa present Eyes EOM: EOMs intact bilaterally Neck Neck: Yes supple Resp Auscultation: clear to auscultation bilaterally Cardio Jugular venous distension: no JVD Rate: regular rate GI Palpation (GI): Soft to palpation Auscultation: normal bowel sounds General: Yes no CVA tenderness Back/Spine/Pelvis Back: no CVA tenderness Skin General skin exam: no rashes or lesions noted Neuro General: patient oriented x3 and moves all extremities Results Reviewed Nephrology Results: Sodium 139 mmol/L (135-145) 10/10/24 Potassium 4.1 mmol/L (3.3-5.1) 10/10/24 Chloride 100 mmol/L (96-108) 10/10/24 Carbon Dioxide 34 mmol/L (22-29) H 10/10/24 BUN 28 mg/dL (9-16) H 10/10/24 Creatinine 0.97 mg/dL (0.5-1.4) 10/10/24 Assessment & Plan Assessment & Plan (1) Proteinuria: Code(s): R80.9 - Proteinuria, unspecified Category: Medical Qualifiers: Proteinuria type: persistent Qualified Code(s): R80.1 - Persistent proteinuria, unspecified (2) Hypertension: Code(s): I10 - Essential (primary) hypertension Category: Medical Qualifiers: Hypertension type: primary hypertension Qualified Code(s): I10 - Essential (primary) hypertension Plan Candi has proteinuria for some time. It is most likely due to diabetic nephropathy. Even though differential diagnosis are quite broad, to unlikely to be anything other than diabetic nephropathy. Her edema has gone since I increased her lasix to 40 mg daily . There is no indication for any renal biopsy now. Her blood pressure needs to be maintain a goal. Her blood sugar control needs to be better. She is a great candidate for SGLT2 inhibitor if she is type 2 DM. Biopsying her kidney can be challenging and she is on anticoagulation. She should avoid nonsteroidal anti-inflammatories. She is tolerating Entresto very well. I did not make any other medication changes today. All these have been explained in detail. Answered all questions. Follow-up appointment given Orders: Orders Blood Urea Nitrogen 3 Months R80.1 - Persistent proteinuria, unspecified Creatinine 3 Months R80.1 - Persistent proteinuria, unspecified Electrolytes 3 Months R80.1 - Persistent proteinuria, unspecified Coding Level of Care Code Est Pt Level 4 (45076) Diagnoses Persistent proteinuria R80.1 Proteinuria type: persistent Primary hypertension I10 Hypertension type: primary hypertension
== END 2024-10-31 10:32 | disposition home or self-care (01) ==
LOC: HO.HKA 09:08
PROVIDERS: PCP Family Medicine; Visit Provider Internal Medicine Nephrology
DX: R80.1 Persistent proteinuria, unspecified (principal); I10 Essential (primary) hypertension
CPT/HCPCS: 99214

== ENCOUNTER → 2024-10-31 09:07 | Outpatient (BNVA) | payer OTHER, SELFPAY | PROVIDERS: PCP Family Medicine; Visit Provider Internal Medicine Nephrology | DX: R80.1 Persistent proteinuria, unspecified (principal); I10 Essential (primary) hypertension | CPT/HCPCS: 99212 ==

== ENCOUNTER 2024-11-21 08:34 | Outpatient (AMB) | payer OTHER, SELFPAY ==
--- NOTE | 2024-11-21 08:57 | MHC.AMDMED ---
Intake Intake Visit Reasons: 60 min Fitter'S Assistant Required: Yes Fitter'S Assistant Language: Slate Cutter Operator Name: Curt [email or web address] Information Interpreted: non-clinical & clinical Accompanied by: Other Relationship Allergies No Known Allergies Allergy (Verified 10/31/24 10:13) [facility] Comprehensive Diabetes Asmnt Most Recent Diabetes Results: Creatinine, (0.5-1.4) 0.97 mg/dL 10/10/24 BUN, (9-16) 28 mg/dL H 10/10/24 Sodium, (135-145) 139 mmol/L 10/10/24 Potassium, (3.3-5.1) 4.1 mmol/L 10/10/24 Chloride, (96-108) 100 mmol/L 10/10/24 Carbon Dioxide, (22-29) 34 mmol/L H 10/10/24 [facility] Medical History Polyarticular osteoarthritis Thyroid nodule greater than or equal to 1.5 cm in diameter incidentally noted on imaging study Thyroid nodule Helicobacter pylori gastritis Chronic cough On beta justine at home Nonischemic cardiomyopathy CHF (congestive heart failure) CAD (coronary artery disease) Thrombocytopenia Anemia Chronic GERD Elevated liver enzymes Seropositive rheumatoid arthritis Obesity (BMI 30-39.9) Vitamin D deficiency Dyslipidemia Hypertension 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 Mother No problems noted. Maternal Aunt Diabetes mellitus Social History Household Members: None Housing: Apartment Are you a primary healthcare risk control consultant to a significant other at home: No Do you presently have visiting nurse or other home services: Yes (telephone) Alcohol intake: never Patient Tobacco Use Status: Never used Tobacco service: No Current occupational status: retired Current occupation: rt handed Assessment & Plan Assessment & Plan (1) Diabetes type 1, uncontrolled: Code(s): E10.65 - Type 1 diabetes mellitus with hyperglycemia Plan: Personal Continuous Glucose Monitor: Patients CGM information reviewed, Pt uses Dexcom G7 with distribution warehouse manager Patient's glucose levels have improved since last visit. Although prescription for Tresiba reads Tresiba 34 units daily patient reports she is only taking 10-12 units because she is concerned about hypoglycemia. Patient is also taking NovoLog 16 units before meals. Reviewed with patient the action of NovoLog and Tresiba Based on the timing of patient's episodes of hypoglycemia it appears she is having postprandial lows. Explained to patient that this is usually caused by NovoLog not Tresiba Recommended to patient she has take consistent dose of Tresiba 12 units daily NovoLog 14 units for large meals, NovoLog 12 units for small meals Patient agreed to plan Patient also complains of irritation from adhesive of Dexcom G7 sensor Recommended patient use an antihistamine cream, or nasal spray on skin prior to adhering Dexcom G7 In addition patient was given list of products to use for sensitivity to Dexcom G7 Patient able to insert sensor independently at home without issue.? Portions of this note were created using voice recognition software, please excuse any words or phrases that may have been misinterpreted. Patient Instructions: Tresiba 12 unidades al d?a Novolog 14 unidades antes de comidas copiosas Novolog 12 unidades para comidas ligeras Coding Level of Care Code Est Pt Level 1 (85340) Diagnoses Diabetes type 1, uncontrolled E10.65
--- OUTSIDE RECORDS SUMMARY | 2024-11-21 08:57 | XMS_ITS | Encounter Summary ---
Author Organization [employer] [facility] Address [address] [place] [address] [address] [place] [address] Care Team Providers Care Assistant Account Manager Name Role Phone Gavi Aldana DO Primary Care Provider [phone] Encounter Details Date Type Department Care Team (Latest Contact Info) Description 03/10/2022 Abstract [facility] CONVERSIONS Dental, Provider, DDS Social [...] Care Team (Late st Contact Info) Description 11/27/2024 9:00 AM EDT Office Visit [facility] MEDICINE [address] [place] [address] Gavi Aldana DO [address] [place] [address] 12/03/2024 9:00 AM EDT Office Visit [facility] ADULT DENTAL [address] [place] [address] Joés Miguel Sy DDS [address] [place] [address] documented as of this encounter Visit Diagnoses Not on filedocumented in this encounter Care Teams Assistant Account Manager Relationship Specialty Start Date End Date Gavi Aldana DO [address] [place] [address] PCP - General Family Medicine 06/06/18 documented as of this encounter
== END 2024-11-21 09:34 | disposition home or self-care (01) ==
LOC: HO.ENCR 08:34
PROVIDERS: PCP Family Medicine; Visit Provider Registered Nurse Diabetes Educator
DX: E10.65 Type 1 diabetes mellitus with hyperglycemia (principal)

== ENCOUNTER → 2024-11-21 08:34 | Outpatient (BNVA) | payer OTHER, SELFPAY | PROVIDERS: PCP Family Medicine; Visit Provider Registered Nurse Diabetes Educator | DX: E10.65 Type 1 diabetes mellitus with hyperglycemia (principal) | CPT/HCPCS: 99211 ==

== ENCOUNTER 2024-11-26 08:15 | Outpatient (AMB) | payer OTHER, SELFPAY ==
[2024-11-26 08:18] VITALS: BP 104/52; PULSE 67; O2SAT 98; BMI 24.4
--- NOTE | 2024-11-26 08:18 | A.OFFVIS_ITS ---
Vital Signs 3 11/26/24 08:18 Height 5 ft 3 in Weight 137 lb 9.095 oz BMI 24.4 BP 104/52 L Blood Pressure Location Rt brachial Position Sitting Pulse 67 Pulse Source Pulse Oximeter Pulse Oximetry (%) 98 Oxygen Delivery Method Room Air Intake Visit Reasons: nontoxic thyroid nodule Intake Note: Patient present today for nontoxic thyroid nodule. Accounts Payable Manager Required: Yes Accounts Payable Manager Language: Imagery Analyst Services: Accounts Payable Manager Present Accounts Payable Manager Name: Candi Jimenez [id number] Information Interpreted: non-clinical & clinical Accompanied by: CENTRAL SERVICE TECH Allergies No Known Allergies Allergy (Verified 11/26/24 08:22) Medication List - Last Reconciled 11/26/24 by Shruthi Cui MD acetaminophen ER (Arthritis Pain Relief (acetaminophen) ER) 1 tab PO Q8H PRN acetone (urine) test (Ketone Urine Test strips) prn tid for glucose staying over 250 or symptoms of nausea/vomiting apixaban (Eliquis) 5 mg PO BID ascorbic acid (vitamin C) 500 mg PO DAILY atorvastatin 10 mg PO DAILY baclofen 10 mg PO TID PRN benzonatate 100 mg PO TID PRN 30 days blood sugar diagnostic As directed blood sugar diagnostic (FreeStyle Lite Strips) TEST BLOOD SUGAR FOUR TIMES DAILY blood-glucose meter (FreeStyle Lite Meter kit) As directed blood-glucose sensor ([employer] G7 Sensor device) As directed blood-glucose,i&c tech,cont (Dexcom G7 Political Geographer) As directed Breo Ellipta 200-25 mcg/dose (fluticasone furoate-vilanterol) 1 inh inhalation DAILY 30 days NS cholecalciferol (vitamin D3) 50 mcg PO DAILY codeine-guaifenesin 10-100 mg/5 mL 10 mL PO Q4-6H PRN digoxin (Digox) 125 mcg PO DAILY etanercept (Enbrel SureClick) 50 mg subcut QWEEK famotidine 40 mg PO DAILY ferrous sulfate (FeroSul) 325 mg PO DAILY fluticasone propionate 50 mcg/actuation 2 sprays intranasal DAILY PRN folic acid 1 mg PO DAILY furosemide 40 mg PO DAILY glucagon 3 mg/actuation (Baqsimi) 3 mg intranasal .twice PRN 30 days MDD 6 mg glucose 8 - 16 grams PO NEEDED PRN glucose 7.5 - 15 grams PO glucose (Dex4 Glucose) 16 grams (4 x 4 gram) PO Q15M PRN 30 days MDD 16 tablets ibuprofen 600 mg PO TID insulin aspart U-100 (Novolog FlexPen U-100 Insulin aspart) subcutaneously inject 16-18 units tid with meals 90 days MDD 54 units insulin degludec (Tresiba FlexTouch U-200 insulin) 34 units (0.17 mL) subcut DAILY 90 days lancets (TRUEplus Lancets) As directed methotrexate sodium 15 mg (6 x 2.5 mg) PO QWEEK 90 days metoprolol tartrate 100 mg PO BID 30 days naloxone 4 mg/actuation (Narcan) 4 mg intranasal NEEDED PRN omeprazole 40 mg PO BID pen needle, diabetic (UltiCare Pen Needle) As directed pen needle, diabetic (BD Ultra-Fine Thania Pen Needle) USE DIRECTED FOUR TIMES DAILY prednisone 5 mg PO DIRECTED sacubitril-valsartan 49-51 mg (Entresto) 1 tab PO BID sennosides-docusate sodium 8.6-50 mg (Senokot-S) 2 tab-caps (2 x 8.6-50 mg) PO BEDTIME spironolactone 25 mg PO DAILY HPI Comments Details: 73 years with history of GERD, rheutmatoid arthritis, Type 1 DM , CHF coming in today for follow up of thyroid nodules. Here with CENTRAL SERVICE TECH. She is also seen in our clinic for Type 1 DM : not addressed today last visit October 2024 with Silvia Rider APRN. HPI MNG Patient describes she had persistent cough, which lead to pulmonary evaluation , underwent Ct chest 01/26 which lead to incidental discovery of thyroid nodules. TSH normal September 27. US THYROID 04/28 I reviewed the images myself, and she does have a right-sided dominant nodule measuring 2.2 cm, which is solid hyperechoic, it is hard to tell of the lower border, though this is reported as it taller than wide, which makes it MICHEL high suspicious category, with greater than 50% chance of malignancy. She also has other left-sided nodules, with a 2.2 cm left mid lobe nodule that is solid, hyperechoic TR 3 category and another 2 cm left inferior lobe nodule which is also solid and hyperechoic and TR 3 category, these are both MICHEL low suspicion nodules with 5-10% chance of malignancy. FNA 02/21 of the right dominant 2.2 cm nodules revealed AUS with nuclear atypia , Afirma benignb (less than 4% risk of malignany) Describes chronic cough for the past year, accompanied by difficulty swallowing which has persisted. Difficulty with pills , solids and liquids. But she says it is mildly bothersome with repeatedly clearing her throat, but still able to eat. No voice changes. No difficulty breathing. She has diffculty laying too flat, gets dizzy, uses two pillows. Patient currently denies heat or cold intolerance, diarrhea or constipation, hair loss, palpitation, anxiety, weight changes, mood changes, low energy, changes in appearance of eyes or vision changes, tremors, increased diaphoresis or dry skin. ? Patient denies any history of childhood neck radiation. Denies having ever used lithium, amiodarone or biotin supplements. Patient denies any family history of thyroid cancer or thyroid disease. Brother had lung cancer, was a smoker no other family history of cancer. Interval history 11/26/24 had repeat ultrasound which showed a right lower pole 0.9 cm nodule mixed cystic solid, hypoechoic, which would be a TR 3 category nodule, remained stable in size compared to previous ultrasound. The previous right lower pole dominant nodule is now measured as right mid/lower pole 1.7 cm nodule which is TR 3 category, but this was the 2.2 cm nodule that we biopsied back in February 2024 which was benign on Afirma., a right lower pole 1.6 cm mixed cystic solid isoechoic TR 3 nodule which does not meet criteria for FNA. This was not visualized previously? The left midpole nodule measures as 1.6 cm in largest dimension which is solid isoechoic, TR 3 category that has decreased in size compared to largest dimension 2.2 previously, I will left lower pole 1.6 cm nodule which is solid isoechoic TR 3 category, has also decreased in size from 2 cm. Overall comparison is difficult to prior images. But overall nodules looks stable. Labs September 2024 normal TSH free t4 Physical exam General: sitting comfortably in no acute distress HEENT: normocephalic/atraumatic, moist oral mucosa Neck: supple, palpable nodules on both the right and left side. Measuring about 1-2 cm. Cardiac: normal heart sounds Pulm: normal breath sounds B/L, no added breath sounds Abd: not distended, no tenderness Extremities: no edema, no signs of myxedema Neuro: AAO x3, Speech: normal, no facial droop, moving all 4 extremities Laboratory Tests 09/20/23 09/04/24 07:27 09:02 TSH 2.41 1.41 Free T4 1.31 US THYROID 08/23/24 CLINICAL INFORMATION: Nontoxic single thyroid nodule COMPARISON: None available. TECHNIQUE: Linear transducer grayscale and color Doppler examination with attention to the region of the thyroid. FINDINGS: SIZE: Measurements of the thyroid lobes and nodules are given in sagittal, anteroposterior and transverse dimensions respectively. Right Thyroid Lobe: 5.5 x 2.9 x 2.4 cm, volume 20 mL. Previously 4.7 x 2.7 x 2.4 cm. Volume 14.4 mL Parenchyma: The gland echotexture is normal. Thyroid vascularity is normal. Left Thyroid Lobe: 5.5 x 3.2 x 2.3 cm, volume 22 mL. Previously 4.5 x 2.7 x 2.4 cm. Volume 13.9 mL Parenchyma: The gland echotexture is normal. Thyroid vascularity is normal. Isthmus: 0.3 cm in maximum AP dimension. Estimated total number of nodules greater than or equal to 1 cm: 4. Atomic Physics Professor nodules are described as follows: 1. Location: Right distal mass lower pole. Size: 0.9 x 0.4 x 0.7 cm, volume 0.106 mL. Nodule characteristics: Composition: Mixed cystic and solid (1). Echogenicity: Hypoechoic Shape: Wider Margins: Smooth (0). Echogenic Foci: None (0). ACR TI-RADS total points: 4 ACR TI-RADS category: TR 4 2. Location: Right mid/lower pole. Size: 1.7 x 1.3 x 1.5 cm, volume 1.6 mL. Nodule characteristics: Composition: Solid (2). Echogenicity: Isoechoic (1). Shape: Widened Margins: Smooth (0). Echogenic foci : None. ACR TI-RADS total points: 3 ACR TI-RADS category: 3 3. Location: Right lower pole. Size: 1.5 x 1.4 x 1.6 cm, volume 1.7 mL. Nodule characteristics: Composition: Solid/almost completely solid (2). Echogenicity: Isoechoic (1). Shape: Wider Margins: Smooth (0). Echogenic Foci: None (0). ACR TI-RADS total points: 3 ACR TI-RADS category: 3 4. Location: Left midpole. Size: 1.4 x 1.1 x 1.6 cm, volume 1.3 mL. Previously measured 2.2 x 1.1 x 2.0 cm and volume 2.4. Nodule characteristics: Composition: Solid (2). Echogenicity: Isoechoic (1). Shape: Wider Margins: Smooth (0). Echogenic Foci: None (0). ACR TI-RADS total points: 3 ACR TI-RADS category: 3. 5. Left lower pole nodule. It measures 1.3 x 1.2 x 1.6 cm in volume 1.3 mL. Previously measured 2.0 x 1.8 x 1.4 cm in volume mL. There is a solid nodule with isoechoic texture, wider, smoother margins and no echogenic foci. Total points 3. Ti-rads 3. NODES: No lymphadenopathy is seen in the tissue surrounding the thyroid gland. US/US thyroid IMPRESSION: Enlarged bilateral thyroid lobes. Multiple nodules largest measuring 1.7 cm right mid to lower pole. Most of these are solid nodules. Recommend continued follow-up US THYROID 04/28 CLINICAL INFORMATION: Abnormal findings on diagnostic imaging. COMPARISON: CT chest without contrast 02/03/2023. TECHNIQUE: Linear transducer mena-scale and color Doppler examination with attention to the region of the thyroid. Technically difficult study secondary to thyroid located low in neck, bilateral lower poles limited visualization. FINDINGS: SIZE: Measurements of the thyroid lobes and nodules are given in sagittal, anteroposterior and transverse dimensions respectively. Right Thyroid Lobe: 4.7 x 2.7 x 2.4 cm, volume 14.4 mL. Parenchyma: The gland echotexture is heterogeneous. Thyroid vascularity is normal. Left Thyroid Lobe: 4.5 x 2.7 x 2.4 cm, volume 13.9 mL. Parenchyma: The gland echotexture is heterogeneous. Thyroid vascularity is normal. Isthmus: 0.3 cm in maximum AP dimension. Estimated total number of nodules greater than or equal to 1 cm: 4. Atomic Physics Professor nodules are described as follows: 1. Location: Right isthmus inferior. Size: 0.8 x 0.4 x 0.9 cm, volume 0.15 mL. Nodule characteristics: Composition: Solid (2). Echogenicity: Hypoechoic (2). Shape: Not taller than wide (0). Margins: Smooth (0). Echogenic Foci: None (0). ACR TI-RADS total points: 4 ACR TI-RADS category: 4 2. Location: Right inferior. Size: 1.1 x 0.9 x 0.4 cm, volume 0.2 mL. Nodule characteristics: Composition: Cystic(0). ACR TI-RADS total points: 0 ACR TI-RADS category: 1 3. Location: Right inferior. Size: 2.2 x 1.9 x 1.6 cm, volume 2.5 mL. Nodule characteristics: Composition: Solid (2). Echogenicity: Hyperechoic (1). Shape: Taller than wide (3). Margins: Ill-defined (0). Echogenic Foci: None (0). ACR TI-RADS total points: 6 ACR TI-RADS category: 4 4. Location: Left mid. Size: 2.2 x 1.1 x 2.0 cm, volume 2.4 mL. Nodule characteristics: Composition: Solid/almost completely solid (2). Echogenicity: Hyperechoic (1). Shape: Not taller than wide (0). Margins: Smooth (0). Echogenic Foci: None (0). ACR TI-RADS total points: 3 ACR TI-RADS category: 3 5. Location: Left inferior. Size: 2.0 x 1.8 x 1.4 cm, volume 2.7 mL. Nodule characteristics: Composition: Solid (2). Echogenicity: Hyperechoic (1). Shape: Not taller than wide (0). Margins: Smooth (0). Echogenic Foci: None (0). ACR TI-RADS total points: 3 ACR TI-RADS category: 3 NODES: No lymphadenopathy is seen in the tissue surrounding the thyroid gland. US/US thyroid IMPRESSION: 1. A 2.2 cm inferior thyroid lobe TR 4 nodule meets ACR biopsy criteria and is amenable to ultrasound-guided biopsy, if clinically indicated and not already performed. 2. There is a diffuse goiter. 3. There is heterogeneous thyroid echotexture, consistent with thyroiditis. [facility] Medical History Polyarticular osteoarthritis Thyroid nodule greater than or equal to 1.5 cm in diameter incidentally noted on imaging study Thyroid nodule Helicobacter pylori gastritis Chronic cough On beta justine at home Nonischemic cardiomyopathy CHF (congestive heart failure) CAD (coronary artery disease) Thrombocytopenia Anemia Chronic GERD Elevated liver enzymes Seropositive rheumatoid arthritis Obesity (BMI 30-39.9) Vitamin D deficiency Dyslipidemia Hypertension 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 Mother No problems noted. Maternal Aunt Diabetes mellitus Social History Household Members: None Housing: Apartment Are you a primary client care specialist to a significant other at home: No Do you presently have visiting nurse or other home services: Yes (telephone) Alcohol intake: never Patient Tobacco Use Status: Never used Tobacco service: No Current occupational status: retired Current occupation: rt handed Physical Exam Vital Signs: Last Vital Signs Pulse 67 11/26/24 08:18 BP 104/52 L 11/26/24 08:18 Pulse Ox 98 11/26/24 08:18 Oxygen Delivery Method Room Air 11/26/24 08:18 BMI result Body Mass Index 24.4 Assessment & Plan Assessment & Plan (1) Thyroid nodule greater than or equal to 1.5 cm in diameter incidentally noted on imaging study: Code(s): E04.1 - Nontoxic single thyroid nodule Category: Medical Plan: Patient with no family history of thyroid cancer, with no personal history of head or neck radiation who is coming in today to discuss results of FNA done 02/21. She has had a chronic cough for about the last year that has been persistent, she also has a history of GERD, she was evaluated by pulmonology and chest CT led to incidental discovery of multinodular goiter. Subsequent ultrasound thyroid in April 2023 showed multiple bilateral nodules, with a right-sided dominant nodule measuring 2.2 cm, which is solid hyperechoic, , reported as it taller than wide, which makes it MICHEL high suspicious category, with greater than 50% chance of malignancy. She also has other left-sided nodules, with a 2.2 cm left mid lobe nodule that is solid, hyperechoic TR 3 category and another 2 cm left inferior lobe nodule which is also solid and hyperechoic and TR 3 category, these are both MICHEL low suspicion nodules with 5-10% chance of malignancy. Underwent FNA 02/22/24 of the right dominant 2.2 cm nodules revealed AUS with nuclear atypia , Afirma benign (less than 4% risk of malignancy). August 2024 had repeat ultrasound which showed a right lower pole 0.9 cm nodule mixed cystic solid, hypoechoic, which would be a TR 3 category nodule, remained stable in size compared to previous ultrasound. The previous right lower pole dominant nodule is now measured as right mid/lower pole 1.7 cm nodule which is TR 3 category, but this was the 2.2 cm nodule that we biopsied back in February 2024 which was benign on Afirma., a right lower pole 1.6 cm mixed cystic solid isoechoic TR 3 nodule which does not meet criteria for FNA. This was not visualized previously? The left midpole nodule measures as 1.6 cm in largest dimension which is solid isoechoic, TR 3 category that has decreased in size compared to largest dimension 2.2 previously, I will left lower pole 1.6 cm nodule which is solid isoechoic TR 3 category, has also decreased in size from 2 cm. Overall comparison is difficult to prior images. But overall nodules looks stable. She does have some degree of compressive symptoms, she does report bothersome cough and dysphagia. the cough could be from her chronic GERD, I explained to her that her thyroid appears normal in size and her nodules are not big enough to be responsible for these symptoms. At this point would not recommend thyroid surgery eval. Patient verbalized understanding and is agreeable with the plan. Plan: -we will plan to repeat TFTs and thyroid ultrasound in August 2025 Silvia Rider APRN who manages her type 1 diabetes mellitus is retiring, I will have her book an appointment with me for follow up for type 1 diabetes in January 2025. Plan see above Coding Level of Care Code Est Pt Level 3 (71806) Diagnoses Thyroid nodule greater than or equal to 1.5 cm in diameter incidentally noted on imaging study E04.1
--- OUTSIDE RECORDS SUMMARY | 2024-11-26 08:23 | XMS_ITS | Encounter Summary ---
Author Organization [employer] [facility] Address [address] [place] [address] [address] [place] [address] Care Team Providers Care Semiconductor Processing Technician Name Role Phone Gavi Aldana DO Primary Care Provider [phone] Encounter Details Date Type Department Care Team (Latest Contact Info) Description 03/10/2022 Abstract [facility] CONVERSIONS Dental, Provider, DDS Social History [...] Description 11/27/2024 9:00 AM EDT Office Visit [facility] MEDICINE [address] [place] [address] Gavi Aldana DO [address] [place] [address] 12/03/2024 9:00 AM EDT Office Visit [facility] ADULT DENTAL [address] [place] [address] José Miguel Sy DDS [address] [place] [address] documented as of this encounter Visit Diagnoses Not on filedocumented in this encounter Care Teams Semiconductor Processing Technician Relationship Specialty Start Date End Date Gavi Aldana DO [address] [place] [address] PCP - General Family Medicine 06/06/18 documented as of this encounter
== END 2024-11-26 08:46 | disposition home or self-care (01) ==
LOC: HO.ENCR 08:16
PROVIDERS: PCP Family Medicine; Visit Provider Student in an Organized Health Care Education/Training Program
DX: E04.1 Nontoxic single thyroid nodule (principal)
CPT/HCPCS: 99213

== ENCOUNTER → 2024-11-26 08:15 | Outpatient (BNVA) | payer OTHER, SELFPAY | PROVIDERS: PCP Family Medicine; Visit Provider Student in an Organized Health Care Education/Training Program | DX: E04.1 Nontoxic single thyroid nodule (principal) | CPT/HCPCS: 99212 ==

== ENCOUNTER 2024-11-27 09:59 | Outpatient (REF) | payer OTHER, SELFPAY ==
--- NOTE | ~2024-11-27 | XR_ITS ---
EXAMINATION: XR LUMBOSACRAL SPINE CLINICAL INFORMATION: worsening LBP x 1 mos COMPARISON: None available. TECHNIQUE: Three views of the lumbosacral spine. FINDINGS: There are 5 nonrib-bearing lumbar segments. There is 17 degrees levoscoliosis. There are anterior osteophytes and mild to moderate disc space narrowing most advanced at L4-5. There is facet sclerosis and osteophytes at L4-5 and L5-S1. XR/XR lumbar spine 2-3V IMPRESSION: Degenerative disc disease and facet arthropathy is most advanced at L4-5. Mild levoscoliosis. Electronically signed by: Beto Sarabia MD 11/27/2024 10:32 AM EDT
--- OUTSIDE RECORDS SUMMARY | 2024-11-27 10:59 | XMS_ITS | Encounter Summary ---
Author Organization [employer] [facility] Address [address] [place] [address] [address] [place] [address] Care Team Providers Care Education Finance Processor Name Role Phone Gavi Aldana DO Primary Care Provider [phone] Encounter Details Date Type Department Care Team (Latest Contact Info) Description 03/10/2022 Abstract [facility] CONVERSIONS Dental, Provider, DDS Social [...] Description 12/03/2024 9:00 AM EDT Office Visit [facility] ADULT DENTAL [address] [place] [address] José Miguel Sy DDS [address] [place] [address] documented as of this encounter Visit Diagnoses Not on filedocumented in this encounter Care Teams Education Finance Processor Relationship Specialty Start Date End Date Gavi Aldana DO [address] [place] [address] PCP - General Family Medicine 06/06/18 documented as of this encounter
== END 2024-11-27 10:00 | disposition home or self-care (01) ==
LOC: HO.HHCX 09:59
PROVIDERS: PCP Family Medicine; Visit Provider Family Medicine
DX: M54.50 Low back pain, unspecified (principal); G89.29 Other chronic pain
CPT/HCPCS: 72100

== ENCOUNTER → 2024-11-27 10:07 | Outpatient (BNV) | payer OTHER, SELFPAY | PROVIDERS: PCP Family Medicine; Visit Provider Radiology Diagnostic Radiology | DX: M47.26 Other spondylosis with radiculopathy, lumbar region (principal) | CPT/HCPCS: 72100 ==

== ENCOUNTER 2024-11-29 13:03 | Outpatient (AMB) | payer OTHER, SELFPAY ==
[2024-11-29 13:22] VITALS: BP 122/67; PULSE 81; O2SAT 96; BMI 24.6
--- NOTE | 2024-11-29 13:22 | MHC.OFFVIS ---
Vital Signs 11/29/24 13:22 Height 5 ft 3 in Weight 139 lb BMI 24.6 BP 122/67 Blood Pressure Location Rt brachial Position Sitting Pulse 81 Pulse Source Pulse Oximeter Pulse Oximetry (%) 96 Oxygen Delivery Method Room Air Intake Visit Reasons: cough Lidding Machine Operator Required: Yes Lidding Machine Operator Name: Gavi Whitaker Stephanie Allergies No Known Allergies Allergy (Verified 11/29/24 13:28) HPI HPI cough: Details: 74-year-old lady, nonsmoker, with underlying AFib, chronic GERD, rheumatoid arthritis on methotrexate followed for pulmonary component of dyspnea on exertion and cough.? Patient has been using furosemide 40 mg daily with good control of dyspnea on exertion and lower extremity edema. She has restarted Breo and her symptoms have been well controlled. She did develop another episode of bronchitis. [facility] Medical History Polyarticular osteoarthritis Thyroid nodule greater than or equal to 1.5 cm in diameter incidentally noted on imaging study Thyroid nodule Helicobacter pylori gastritis Chronic cough On beta justine at home Nonischemic cardiomyopathy CHF (congestive heart failure) CAD (coronary artery disease) Thrombocytopenia Anemia Chronic GERD Elevated liver enzymes Seropositive rheumatoid arthritis Obesity (BMI 30-39.9) Vitamin D deficiency Dyslipidemia Hypertension 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 Mother No problems noted. Maternal Aunt Diabetes mellitus Social History Household Members: None Housing: Apartment Are you a primary healthcare recruiter to a significant other at home: No Do you presently have visiting nurse or other home services: Yes (telephone) Alcohol intake: never Patient Tobacco Use Status: Never used Tobacco service: No Current occupational status: retired Current occupation: rt handed Review of Systems Const Denies daytime sleepiness, Denies excessive sweating, Denies fatigue, Denies fever(s), Denies lethargy, Denies malaise, Denies night sweats, Denies snoring and Denies weight loss Eyes Denies blurry vision and Denies itchy eyes ENT Denies nasal congestion, Denies post nasal drip, Denies sinus pain, Denies sinus pressure and Denies other ( Thrush) Card Denies chest pain, Denies pedal edema, Denies dyspnea, Denies orthopnea and Denies paroxysmal nocturnal dyspnea Resp Reports cough, Denies hemoptysis, Denies excessive phlegm production, Denies dyspnea, Denies snoring and Denies wheezing GI Denies abdominal pain and Denies heartburn Musc Denies myalgias, Denies arthralgias and Denies joint swelling Skin/Breast Denies rash Neuro Denies memory loss and Denies seizure-like activity Psych Denies abnormal sleep pattern, Denies anxiety and Denies memory loss Endo Denies excessive sweating, Denies fatigue and Denies heat intolerance Angelo/Lymph Denies easy bruising Aller/Immun Denies itchy eyes, Denies seasonal rhinorrhea and Denies wheezing Physical Exam Vital Signs: Last Vital Signs Pulse 81 11/29/24 13:22 BP 122/67 11/29/24 13:22 Pulse Ox 96 11/29/24 13:22 Oxygen Delivery Method Room Air 11/29/24 13:22 BMI result Body Mass Index 24.6 Const General: no acute distress and alert Nutritional Appearance: not obese Orientation/consciousness: Other orientation findings ( oriented) HEENT Head: Yes atraumatic Eyes General: appearance normal, both eyes and all related structures Sclerae: sclerae normal EOM: EOMs intact bilaterally Neck Neck: Yes supple Lymphatic: no lymphadenopathy noted Resp Effort & Inspection: normal respiratory effort and no use of accessory muscles Auscultation: clear to auscultation bilaterally Cardio Rate: regular rate Rhythm: regular rhythm Heart sounds: no gallops, no murmurs and no rubs Skin General skin exam: other ( warm) Extrem General: No clubbing, No cyanosis and No edema Assessment & Plan Assessment & Plan (1) Cough: Code(s): R05.9 - Cough, unspecified Category: Medical Plan: Now with recurrence of bronchitic symptoms. Will treat with course of azithromycin and benzonatate for symptomatic relief. (2) Pulmonary nodules: Code(s): R91.8 - Other nonspecific abnormal finding of lung field Category: Surgical Plan: Results of follow-up CT chest from October of 2024 reviewed and shows stable pulmonary nodules. Will repeat CT chest in 12 months. (3) Dyspnea: Code(s): R06.00 - Dyspnea, unspecified Category: Medical Plan: Pulmonary component well controlled on Breo and albuterol MDI. Lower extremity edema well controlled on furosemide 40 mg daily. Continue current regimen. Coding Level of Care Code Est Pt Level 4 (11906) Complex EM visit Add On G2211 Diagnoses Cough R05.9 Pulmonary nodules R91.8 Dyspnea R06.00
--- OUTSIDE RECORDS SUMMARY | 2024-11-29 15:35 | XMS_ITS | Encounter Summary ---
Author Organization for; to (do) [facility] Address [address] [place] [address] [address] [place] [address] Care Team Providers Care Walking Dragline Oiler Name Role Phone Gavi Aldana DO Primary Care Provider [phone] Encounter Details Date Type Department Care Team (Latest Contact Info) Description 03/10/2022 Abstract [facility] Dental, Provider, DDS Social History Tobacco [...] Description 12/03/2024 9:00 AM EDT Office Visit [facility] [address] [place] [address] José Miguel Sy DDS [address] [place] [address] documented as of this encounter Visit Diagnoses Not on filedocumented in this encounter Care Teams Walking Dragline Oiler Relationship Specialty Start Date End Date Gavi Aldana DO [address] [place] [address] PCP - General Family Medicine 06/06/18 documented as of this encounter
== END 2024-11-29 13:49 | disposition home or self-care (01) ==
LOC: HO.HPS 13:04
PROVIDERS: PCP Family Medicine; Visit Provider Internal Medicine Pulmonary Disease
DX: R05.9 Cough, unspecified (principal); R91.8 Other nonspecific abnormal finding of lung field; R06.00 Dyspnea, unspecified
CPT/HCPCS: 99214; G2211

== ENCOUNTER → 2024-11-29 13:03 | Outpatient (BNVA) | payer OTHER, SELFPAY | PROVIDERS: PCP Family Medicine; Visit Provider Internal Medicine Pulmonary Disease | DX: K21.9 Gastro-esophageal reflux disease without esophagitis (principal); R06.00 Dyspnea, unspecified; R05.9 Cough, unspecified; R60.0 Localized edema; R91.8 Other nonspecific abnormal finding of lung field | CPT/HCPCS: 99212 ==

== ENCOUNTER → 2024-12-13 20:30 | Outpatient (REF) | payer OTHER, SELFPAY ==
--- OUTSIDE RECORDS SUMMARY | 2024-12-13 21:13 | XMS_ITS | Data Portability ---
Author Organization [employer], [facility] [place] [facility] Address [address] [place] [address] Assessment Encounter Date Assessment Date Assessment LastModified by Organization Details LastModified Time 03/17/2023 03/17/2023 As noted, we were called to see this patient regarding concerns of cough. Evaluation in the field was performed by my quality assurance intern colleague, as noted above, I provided real-time [...] Pulse oximetry Respiratory rate Body temperature Systolic And Diastolic Provider Name and Address Organization Details Last Updated DateTime 3 92 /min 97 % 97 % 16 /min 98.1 [degF] 149/88 mm[Hg] Not Available [employer] - production 3 19:40:55 Social History None recorded. Functional Status None recorded. Mental Status None recorded. Family History Nothing Reported. Medical History No medical history recorded. Gynecological HistoryNo gynecological history recorded. Obstetrics History GPAL:G 0 P 0 0 0 0 Past Encounters Encounter ID Performer Location Encounter Start Date Encounter Closed Date Diagnosis/Indication Diagnosis SNOMED-CT Code Diagnosis ICD10 Code Diagnosis Note [id number] Amparo Marley MD [facility] - [address] [address] 03/17/2023 19:40:50 03/17/2023 19:55:52 Health Concerns Section Related Observation LastModified by Organization Detai ls LastModified Time None Recorded Concern Status LastModified by Organization Details LastModified Time None Recorded Advance Directives Directive None Recorded Payers Insurance Date Sequence Insurance Name Policy Number Policy Ivy Covered Member ID Ivy Member ID Guarantor Name 05/05/2024 1 [facility] - DOS ON OR AFTER 2022 - DUAL ELIGIBLE - RETIREMENT OPTIONS AND ONE CARE (MEDICARE REPLACEMENT/ADV ANTAGE - HMO) Candi Sanchez [id number] Candi Sanchez Notes Date Note Type Note [...] CRC RN DID NOT NEED FURTHER INFO [facility] HPI: 3 weeks, sore throat throughout, cough throughout. dry cough. has never had something like this before. some sour taste, depending on what she ate. no abdominal, a little epigastric burning. Saw provider, got tessalon perles, initially helpful but then. 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 Amparo Marley MD [address] [facility],[address], [place], [address], [employer] 03/17/2023 19:55:51 OBGyn Episode No OBEpisode recorded.
--- OUTSIDE RECORDS SUMMARY | 2024-12-13 21:13 | XMS_ITS | Clinical Summary ---
Author Organization 175 [facility] Address [address] [place] [address] Phone Care Team Providers Care Staff Editor Name Role Phone FlacoGavi humphreys Primary Care Provider +1- [phone] Allergies No known active allergies Medications metFORMIN [...] (05/02/2024): IMO update Hypertension 07/28/2011 Non-ischemic cardiomyopathy ([facility] V24, [facility] V28) 07/28/2011 Encounters Date Type Department Care Team Description 10/01/2024 9:00 AM EDT Office Visit Orthopedic Surgery [facility] [address] [facility] [address] [place] [phone] Kota De La Torre DPM Peripheral venous insufficiency (Primary Dx); Primary osteoarthritis of both feet; Dermatophytosis of nail; Type II diabetes mellitus with peripheral circulatory disorder (CMS/HCC V24, CMS/HCC V28); Diabetic mononeuropathy simplex ([facility] V24, [facility] V28); Pain in toe of right foot; [...] Care Team (Late st Contact Info) Description 12/31/2024 9:15 AM EDT Office Visit Orthopedic Surgery [facility] [address] [phone] Kota De La Torre DPM [address] [address] 02/20/2025 9:00 AM EDT Consult Vascular Surgery [facility] 300 [facility] [address] [place] [phone] Tiffanie Holbrook MD 300 [facility] [address] [place] [address] Health Maintenance Due Date Last Done Comments Diabetes: Annual Foot Exam 1960 Diabetes: Annual Retina Eye Exam 1960 COVID-19 Vaccine (3 - Pfizer risk series) 08/11/2021 07/14/2021, 06/23/2021 RSV Immunization Adult Patients (1 - 1-dose 75+ series) 11/24/2023 Diabetes: Annual Urine Albumin-Creatinine Ratio (uACR) 04/07/2024 Falls Risk Assessment 04/07/2024 Hepatitis C Screening 04/07/2024 Osteoporosis Screening (Bone Density Screening) 04/07/2024 Social Influencers of Health Screening 04/07/2024 Depression Screening 06/15/2024 06/15/2023 Influenza Vaccine (#1) 2025 , 06/15/2023, 03/01/2022, Additional history exists Diabetes: Blood Sugar Control Test (HGBA1C) 02/15/2025 [...] exists Zoster Vaccines Completed 07/20/2023, 12/04, 08/07/2014 HIB Vaccines Aged Out No longer eligi [...] patient's age to complete this topic Insurance [facility] Member Subscriber Plan / Payer (Ef fective 2014-Present) Name:Candi Sanchez Relation to Subscriber:Self Name:Candi Sanchez Payer ID:[id number] Group ID:[id number] Type:Not on file Address: [place] [address] [address] [id number] Care Teams Staff Editor Relationship Specialty Start Date End Date Gavi Aldana DO [address] [place] [address] PCP - General Internal Medicine 10/27/11
== END ==
LOC: HO.SL 20:30
PROVIDERS: PCP Family Medicine; Visit Provider Family Medicine
DX: Z13.89 Encounter for screening for other disorder (principal)

== ENCOUNTER 2024-12-21 12:35 | Outpatient (REF) | payer OTHER, SELFPAY ==
--- OUTSIDE RECORDS SUMMARY | 2024-12-21 13:39 | XMS_ITS | Data Portability ---
Author Organization [employer], [facility] Address [address] [place] [address] Assessment Encounter Date Assessment Date Assessment LastModified by Organization Details LastModified Time 03/17/2023 03/17/2023 As noted, we were called to see this patient regarding concerns of cough. Evaluation in the field was performed by my production gear cutter colleague, as noted above, I provided real-time [...] /min 98.1 [degF] 149/88 mm[Hg] Not Available [employer]w - production 3 19:40:55 Social History None recorded. Functional Status None recorded. Mental Status None recorded. Family History Nothing Reported. Medical History No medical history recorded. Gynecological HistoryNo gynecological history recorded. Obstetrics History GPAL:G 0 P 0 0 0 0 Past Encounters Encounter ID Performer Location Encounter Start Date Encounter Closed Date Diagnosis/Indication Diagnosis SNOMED-CT Code Diagnosis ICD10 Code Diagnosis Note [id number] Amparo Marley MD [facility] - [address] [address] 03/17/2023 19:40:50 03/17/2023 19:55:52 Health Concerns Section Related Observation LastModified by Organization Detai ls LastModified Time None Recorded Concern Status LastModified by Organization Details LastModified Time None Recorded Advance Directives Directive None Recorded Payers Insurance Date Sequence Insurance Name Policy Number Policy Ivy Covered Member ID Ivy Member ID Guarantor Name 05/05/2024 1 [facility] - DOS ON OR AFTER 2022 - DUAL ELIGIBLE - [facility] OPTIONS AND ONE CARE (MEDICARE REPLACEMENT/ADV ANTAGE - HMO) Candi Sanchez [id number] Candi Sanchez Notes Date Note Type Note [...] CRC RN DID NOT NEED FURTHER INFO [facility] HPI: 3 weeks, sore throat throughout, cough throughout. dry cough. has never had something like this before. some sour taste, depending on what she ate. no abdominal, a little epigastric burning. Saw provider, got tessalon perles, initially helpful but then. 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 Amparo Marley MD 30 [facility],[address], [place], [address], [employer] 03/17/2023 19:55:51 OBGyn Episode No OBEpisode recorded.
--- OUTSIDE RECORDS SUMMARY | 2024-12-21 13:39 | XMS_ITS | Clinical Summary ---
Author Organization 175 [facility] Address [address] [place] [address] Phone Care Team Providers Care Director Distribution Name Role Phone FlacoGavi humphreys Primary Care Provider +1- [phone] Allergies No known active allergies Medications metFORMIN [...] (05/02/2024): IMO update Hypertension 07/28/2011 Non-ischemic cardiomyopathy ([facility] V24, [facility] V28) 07/28/2011 Encounters Date Type Department Care Team Description 10/01/2024 9:00 AM EDT Office Visit Orthopedic Surgery [facility] 250 175 [facility] [address] [place] [phone] Kota De La Torre DPM Peripheral venous insufficiency (Primary Dx); Primary osteoarthritis of both feet; Dermatophytosis of nail; Type II diabetes mellitus with peripheral circulatory disorder (CMS/HCC V24, CMS/HCC V28); Diabetic mononeuropathy simplex ([facility] V24, CMS/[facility] V28); Pain in toe of right foot; [...] 9:15 AM EDT Office Visit Orthopedic Surgery [facility] [address] [phone] Kota De La Torre DPM [address] [address] 02/20/2025 9:00 AM EDT Consult Vascular Surgery [facility] 300 [facility] [address] [place] [phone] Tiffanie Holbrook MD 300 [facility] [address] [place] [address] Health Maintenance Due Date Last Done Comments [...] patient's age to complete this topic Insurance [facility] Member Subscriber Plan / Payer (Ef fective 2014-Present) Name:Candi Sanchez Relation to Subscriber:Self Name:Candi Sanchez Payer ID:[id number] Group ID:[id number] Type:Not on file Address: [place] [address] [address] [phone] Care Teams Director Distribution Relationship Specialty Start Date End Date Gavi Aldana DO [address] [place] [address] PCP - General Internal Medicine 10/27/11
[2024-12-21 13:49] LABS: MANUAL DIFF FLAG NO
[2024-12-21 14:08] LABS: Hematocrit 37.8 % (37.0-47.0); Hemoglobin 11.5 g/dl (12.0-16.0); Imm Gran Abs Auto 0.04 X10*3/uL (0.00-0.03); Imm Gran Pct Auto 0.4 % (0.0-0.4); Lymphocytes Absolute Auto 2.0 X10*3/uL (1.2-4.9); Mean Corpuscular HGB Conc 30.4 g/dl (31.0-35.0); Mean Corpuscular Hemoglobin 22.8 pg (27.0-33.0); Mean Corpuscular Volume 75.0 fL (80.0-98.0); NRBC Abs Auto 0.000 X10*3/uL (0.0-0.012); NRBC Pct Auto 0.0 /100WBC (0.0-0.2); Platelet Count 155 X10*3/uL (160-400); Red Blood Count 5.04 X10*6/uL (4.20-5.50); White Blood Count 9.9 X10*3/uL (4.8-10.8)
[2024-12-21 14:51] LABS: Alanine Aminotransferase 15 U/L (0-31); Albumin Level 3.5 g/dL (3.5-5.0); Alkaline Phosphatase 126 U/L (39-117); Anion Gap 12 (12-20); Aspartate Amino Transferase 28 U/L (5-31); Blood Urea Nitrogen 16 mg/dL (9-16); Calcium 9.6 mg/dL (8.4-10.2); Carbon Dioxide 28 mmol/L (22-29); Chloride 106 mmol/L (96-108); Estimated Glomerular Filt Rate > 60; Potassium 3.8 mmol/L (3.3-5.1); Sodium 142 mmol/L (135-145); Total Protein 7.6 g/dL (6.5-8.0)
== END 2024-12-21 12:36 | disposition home or self-care (01) ==
LOC: HO.LAB 12:35
PROVIDERS: PCP Family Medicine; Visit Provider Student in an Organized Health Care Education/Training Program
DX: M05.9 Rheumatoid arthritis with rheumatoid factor, unspecified (principal)
CPT/HCPCS: 36415; 80053; 85025; 85652; 86140; 99212

== ENCOUNTER 2024-12-21 12:35 | Outpatient (AMB) | payer OTHER, SELFPAY ==
[2024-12-21 12:39] VITALS: BP 136/72; PULSE 72; O2SAT 97; BMI 24.6
--- NOTE | 2024-12-21 12:39 | MHC.OFFVIS ---
Vital Signs 12/21/24 12:39 Height 5 ft 3 in Weight 138 lb 14.259 oz BMI 24.6 BP 136/72 Blood Pressure Location Lt brachial Pulse 72 Pulse Source Pulse Oximeter Pulse Oximetry (%) 97 Oxygen Delivery Method Room Air Intake Visit Reasons: hand pain Intake Note: Patient last seen by Doctor Megan Trinidad on 09/06/24. Presents today for hand pain follow up and test results. Patient complains of shoulder pain for a month. Patient would like to discuss Methotrexate and effect it may have on her eyes. Community Service Aide Required: Yes Community Service Aide Name: Tad [id number] Information Interpreted: clinical only Accompanied by: Daughter Allergies No Known Allergies Allergy (Verified 12/21/24 12:45) Medication List - Last Reconciled 12/21/24 by Megan Trinidad MD acetaminophen ER (Arthritis Pain Relief (acetaminophen) ER) 1 tab PO Q8H PRN acetone (urine) test (Ketone Urine Test strips) prn tid for glucose staying over 250 or symptoms of nausea/vomiting apixaban (Eliquis) 5 mg PO BID ascorbic acid (vitamin C) 500 mg PO DAILY baclofen 10 mg PO TID PRN blood sugar diagnostic As directed blood sugar diagnostic (FreeStyle Lite Strips) TEST BLOOD SUGAR FOUR TIMES DAILY blood-glucose meter (FreeStyle Lite Meter kit) As directed blood-glucose sensor (Dexcom G7 Sensor device) As directed blood-glucose,mold repairer,cont (Dexcom G7 Panel Builder) As directed Breo Ellipta 200-25 mcg/dose (fluticasone furoate-vilanterol) 1 inh inhalation DAILY 30 days NS etanercept (Enbrel SureClick) 50 mg subcut QWEEK famotidine 40 mg PO DAILY ferrous sulfate (FeroSul) 325 mg PO DAILY fluticasone propionate 50 mcg/actuation 2 sprays intranasal DAILY PRN folic acid 1 mg PO DAILY furosemide 40 mg PO DAILY glucagon 3 mg/actuation (Baqsimi) 3 mg intranasal .twice PRN 30 days MDD 6 mg glucose 7.5 - 15 grams PO glucose (Dex4 Glucose) 16 grams (4 x 4 gram) PO Q15M PRN 30 days MDD 16 tablets ibuprofen 600 mg PO TID insulin aspart U-100 (Novolog FlexPen U-100 Insulin aspart) subcutaneously inject 16-18 units tid with meals 90 days MDD 54 units insulin degludec (Tresiba FlexTouch U-200 insulin) 34 units (0.17 mL) subcut DAILY 90 days lancets (TRUEplus Lancets) As directed methotrexate sodium 15 mg (6 x 2.5 mg) PO QWEEK 90 days metoprolol tartrate 100 mg PO BID 30 days omeprazole 40 mg PO BID pen needle, diabetic (UltiCare Pen Needle) As directed pen needle, diabetic (BD Ultra-Fine Thania Pen Needle) USE DIRECTED FOUR TIMES DAILY sacubitril-valsartan 49-51 mg (Entresto) 1 tab PO BID sennosides-docusate sodium 8.6-50 mg (Senokot-S) 2 tab-caps (2 x 8.6-50 mg) PO BEDTIME spironolactone 25 mg PO DAILY HPI Comments Details: Patient is a 73-year-old female with hypertension, diabetes, coronary artery disease, heart failure with reduced ejection fraction, atrial fibrillation on digoxin and Eliquis who [facility] of rheumatoid [facility] Interval History: Patient last seen 09/06/2024 with nh - Methotrexate increased to 15mg from 10mg but had no improvement in her pain - received bilateral shoulder steroid injections - Given steroid taper and started Enbrel Today - Did not receive the Enbrel - Stopped the methotrexate because ophthal said that it could cause blindness - Took the prednisone and had improvement in s but still complaining of pain Rheumatologic History: Ddx RA ?start Mtx up 2020 when lost to follow up Re established care 05/2024 Methotrexate 05/2024 - Enbrel added 09/2024 Patient diagnosed with seropositive rheumatoid arthritis several years ago. Was maintained on methotrexate however was lost to follow up since 2020. Previously taking methotrexate but that has since stopped. Sometimes intermittently has flares of her disease with swelling to her hands and her wrists but this would respond to [id number] Tylenol Arthritis. Has prolonged morning stiffness up to an hour. Her main complaints are her bilateral shoulders for which she recently got a steroid injection 1 month ago for. She also complains of knee pain worse at the end of the day impairs her ability to ascend stairs. Denies any shortness of breath, unexplained weight loss. 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 Current Rheumatology Medication(s): Methotrexate 15mg weekly Folic acid 1mg daily Enbrel 50mg SC weekly (did not start) [facility] Medical History Polyarticular osteoarthritis Thyroid nodule greater than or equal to 1.5 cm in diameter incidentally noted on imaging study Thyroid nodule Helicobacter pylori gastritis Chronic cough On beta justine at home Nonischemic cardiomyopathy CHF (congestive heart failure) CAD (coronary artery disease) Thrombocytopenia Anemia Chronic GERD Elevated liver enzymes Seropositive rheumatoid arthritis Obesity (BMI 30-39.9) Vitamin D deficiency Dyslipidemia Hypertension 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 Mother No problems noted. Maternal Aunt Diabetes mellitus Social History Household Members: None Housing: Apartment Are you a primary inpatient care manager rn to a significant other at home: No Do you presently have visiting nurse or other home services: Yes (telephone) Alcohol intake: never Patient Tobacco Use Status: Never used Tobacco service: No Current occupational status: retired Current occupation: rt handed Review of Systems Const Details: Review of Systems Constitutional: Denies fever, chills, weight loss ENT: Denies vision changes, eye pain or eye redness, dental caries, dry mouth GI: Denies nausea, vomiting, diarrhea, abdominal pain, change in BM Pulm: Denies SOB, THOMPSON, hemoptysis, wheezing Cards: Denies chest pain, palpitations Skin: Denies Raynaud's, rash, nail changes, photosensitivity, ROVING MARKER: Denies headaches, weakness, paresthesias, recurrent falls MSK: as per HPI All other systems reviewed and are unremarkable except noted above Physical Exam Exam Exam: Vital signs reviewed Physical Examination CONSTITUITIONAL Patient alert and cooperative. Well appearing and in no apparent painful distress HEENT Conjunctiva and sclera clear. ?Pupils equal round and reactive to light. ?No lymphadenopathy. ? CHEST/RESPIRATORY SYSTEM Normal respiratory effort and able to speak in complete sentences. ?Clear to auscultation bilaterally. ?No crackles, rales, rhonchi, wheezes heard. CARDIAC SYSTEM Regular rate and rhythm. ?S1 and S2 heard no murmurs. ?Radial pulses intact bilaterally MSK Hands: Able to make a fist today. and the swelling is much improved. Wrists: ?Decreased range of motion. Swelling to bilateral wrists with tenderness to palpation. This is improved but there is still swelling noted Elbows: Full range of motion without pain. No tenderness, weakness, swelling, increased warmth or erythema. Shoulders: Decreased range of motion bilaterally secondary to pain tenderness to palpation of the glenohumeral joint posteriorly. Knees: ?Full range of motion. ?No tenderness, swelling, increased warmth or erythema.? Crepitations noted bilaterally Ankles: Full range of motion. ?No tenderness, swelling, increased warmth or erythema.? Pitting edema of the legs bilaterally Feet: ?Negative squeeze test SKIN Skin intact without rashes. Vital Signs: Last Vital Signs Pulse 72 12/21/24 12:39 BP 136/72 12/21/24 12:39 Pulse Ox 97 12/21/24 12:39 Oxygen Delivery Method Room Air 12/21/24 12:39 BMI result Body Mass Index 24.6 Results Reviewed Results Reviewed: Laboratory Tests 09/04/24 10/10/24 09:02 09:13 WBC 6.0 RBC 4.63 Hgb 10.8 L Hct 35.1 L Plt Count 158 L D ESR 34 H Sodium 139 Potassium 4.1 Chloride 100 Carbon Dioxide 34 H BUN 28 H Creatinine 0.97 AST 26 ALT 15 C-Reactive Protein 0.46 Infectious serologies 09/04/24 09:02 Hepatitis A IgM Ab Nonreactive Hep Bs Antigen Negative Hep Bs Antibody REACTIVE Hep B Core Total Ab Nonreactive Hepatitis C Ab (EIA) Nonreactive TB Test (T-Spot) Com Negative Assessment & Plan Assessment & Plan (1) Seropositive rheumatoid arthritis: Code(s): M05.9 - Rheumatoid arthritis with rheumatoid factor, unspecified Category: Medical Plan: #Seropositive RA Patient is a 74-year-old female with seropositive rheumatoid arthritis here today for follow up. RA improved but still has activity due to non compliance with instructions re DMARDs Discussed the importance of compliance with medications We will restart Mtx and start Enbrel (there was an issue with the pharmacy) Plan - Methotrexate 15mg weekly PO - Folic acid 1mg daily - Enbrel 50mg weekly SC - Labs today: CBC, CMP, ESR, CRP - RTC 4 months - Labs before visit: CBC, CMP, ESR, CRP (2) Polyarticular osteoarthritis: Code(s): M15.9 - Polyosteoarthritis, unspecified Category: Medical Plan: #Polyarticular OA Polyarticular OA involving shoulders and knees. Given that patient is on Eliquis would not recommend Celebrex. Has tried topical diclofenac in the past with out much relief. Has also tried physical therapy without much help. At this time limited in therapeutic that we can offer. Tried tramadol in the past which helped but she had stomach issues with it. She can continue receiving injections p.r.n.. Last injection for shoulders was 09/2023 (3) [facility] methotrexate user: Code(s): Z79.899 - Other group home (current) drug therapy Category: Medical Plan: #Long-term Current Use of Methotrexate Discussed with patient the benefits and risks of methotrexate for managing their rheumatic condition Benefits include reduced pain, reduced mortality, maintenance of remission and reduction of flares Risks include oral ulcers, photosensitivity, hepatotoxicity, hematologic toxicity, pneumonitis, flu-like symptoms (especially day after administration), nodulosis, lymphomas ? Limit alcohol and avoid Bactrim ? Monitoring: ?CBC, BMP, LFTs every 3-4 months and hepatitis serologies as needed (4) Encounter for monitoring of etanercept therapy: Code(s): Z51.81 - Encounter for therapeutic drug level monitoring; Z79.620 - intermediate accountant (current) use of immunosuppressive biologic Plan: #Long-term Use of TNF Inhibitors: Etanercept Discussed with the patient the benefits and risks of TNF inhibitors for the management of the rheumatic condition Benefits include reduce pain, maintenance of remission and reduction of flares as well as ?progression of the disease Risks include injection sites/infusion reactions, serious infections (such as bacterial infections, opportunistic infections), malignancy, delaminating syndromes, autoimmune phenomena, CHF exacerbations, palmar plantar psoriasis and cytopenias Recommended rotating injection sites, and holding medication during and for up to 1 week after resolution of a febrile illness or open skin wound Plan I spent 40 minutes reviewing the record and labs, seeing the patient, discussing the treatment plan, contacting pharmacy and documenting in the medical record Orders: Orders Complete Blood Count Auto Diff Today M05.9 - Rheumatoid arthritis with rheumatoid factor, unspecified Erythrocyte Sedimentation Rate Today M05.9 - Rheumatoid arthritis with rheumatoid factor, unspecified Complete Blood Count Auto Diff 4 Months M05.9 - Rheumatoid arthritis with rheumatoid factor, unspecified Erythrocyte Sedimentation Rate 4 Months M05.9 - Rheumatoid arthritis with rheumatoid factor, unspecified Comprehensive Met. Panel Today M05.9 - Rheumatoid arthritis with rheumatoid factor, unspecified C Reactive Protein Today M05.9 - Rheumatoid arthritis with rheumatoid factor, unspecified Comprehensive Met. Panel 4 Months M05.9 - Rheumatoid arthritis with rheumatoid factor, unspecified C Reactive Protein 4 Months M05.9 - Rheumatoid arthritis with rheumatoid factor, unspecified Medications: Refilled methotrexate sodium 15 mg (6 x 2.5 mg) PO QWEEK 78 tabs 1RF 90 days M05.9 - Rheumatoid arthritis with rheumatoid factor, unspecified folic acid 1 mg PO DAILY 90 tabs 1RF M05.9 - Rheumatoid arthritis with rheumatoid factor, unspecified etanercept (Enbrel SureClick) 50 mg subcut QWEEK 4 mL 4RF M05.9 - Rheumatoid arthritis with rheumatoid factor, unspecified Coding Level of Care Code Est Pt Level 5 (85927) Complex EM visit Add On G2211 Diagnoses Seropositive rheumatoid arthritis M05.9 Polyarticular osteoarthritis M15.9 intermediate accountant methotrexate user Z79.899 Encounter for monitoring of etanercept therapy Z51.81; Z79.368
== END 2024-12-21 13:33 | disposition home or self-care (01) ==
LOC: HO.RHE 12:35
PROVIDERS: PCP Family Medicine; Visit Provider Student in an Organized Health Care Education/Training Program
DX: M05.79 Rheumatoid arthritis with rheumatoid factor of multiple sites without organ or systems involvement (principal); M15.9 Polyosteoarthritis, unspecified; Z79.899 Other long term (current) drug therapy; Z51.81 Encounter for therapeutic drug level monitoring; Z79.620 Long term (current) use of immunosuppressive biologic
CPT/HCPCS: 99215; G2211

== ENCOUNTER 2025-01-25 07:48 | Outpatient (REF) | payer OTHER, SELFPAY ==
[2025-01-25 15:05] LABS: Alanine Aminotransferase 11 U/L (0-31); Albumin Level 3.5 g/dL (3.5-5.0); Alkaline Phosphatase 121 U/L (39-117); Anion Gap 10 (12-20); Aspartate Amino Transferase 27 U/L (5-31); Blood Urea Nitrogen 19 mg/dL (9-16); Calcium 9.3 mg/dL (8.4-10.2); Carbon Dioxide 28 mmol/L (22-29); Chloride 108 mmol/L (96-108); Estimated Glomerular Filt Rate 59; Potassium 3.7 mmol/L (3.3-5.1); Sodium 142 mmol/L (135-145); Total Protein 6.9 g/dL (6.5-8.0)
[2025-01-25 15:07] LABS: Hematocrit 36.7 % (37.0-47.0); Hemoglobin 11.1 g/dl (12.0-16.0); Imm Gran Abs Auto 0.02 X10*3/uL (0.00-0.03); Imm Gran Pct Auto 0.3 % (0.0-0.4); Lymphocytes Absolute Auto 1.5 X10*3/uL (1.2-4.9); MANUAL DIFF FLAG SCAN; Mean Corpuscular HGB Conc 30.2 g/dl (31.0-35.0); Mean Corpuscular Hemoglobin 23.0 pg (27.0-33.0); Mean Corpuscular Volume 76.0 fL (80.0-98.0); NRBC Abs Auto 0.000 X10*3/uL (0.0-0.012); NRBC Pct Auto 0.0 /100WBC (0.0-0.2); PLT CLUMP 1; Red Blood Count 4.83 X10*6/uL (4.20-5.50); SCAN SMEAR FLAG 1
[2025-01-25 15:09] LABS: White Blood Count 7.8 X10*3/uL (4.8-10.8)
[2025-01-25 15:10] LABS: Platelet Count 113 X10*3/uL (160-400)
== END 2025-01-25 07:49 | disposition home or self-care (01) ==
LOC: HO.HKASLDS 07:48
PROVIDERS: PCP Family Medicine; Visit Provider Student in an Organized Health Care Education/Training Program
DX: M19.011 Primary osteoarthritis, right shoulder (principal); M19.012 Primary osteoarthritis, left shoulder; M17.0 Bilateral primary osteoarthritis of knee; Z79.01 Long term (current) use of anticoagulants; M05.9 Rheumatoid arthritis with rheumatoid factor, unspecified; Z51.81 Encounter for therapeutic drug level monitoring; Z79.631 Long term (current) use of antimetabolite agent; Z79.899 Other long term (current) drug therapy; Z79.620 Long term (current) use of immunosuppressive biologic
CPT/HCPCS: 36415; 80053; 85025; 85652; 86140; 99212

== ENCOUNTER 2025-01-25 07:48 | Outpatient (AMB) | payer OTHER, SELFPAY ==
--- OUTSIDE RECORDS SUMMARY | 2025-01-25 07:50 | XMS_ITS | Clinical Summary ---
Author Organization [address] [facility] Address [address] [place] [address] Phone Care Team Providers Care Prototype Machine Operator Name Role Phone FlacoGavi humphreys Primary Care Provider [phone] Allergies No known active allergies Medications metFORMIN [...] SUPPLY MISC) Insulin Glargine (LANTUS SC) Active clotrimazole-betam ethasone (LOTRISONE) 1-0.05 % cream Apply topically 2 (two) times a day for 28 days. 30 g 3 5 01/29/20 25 Active Active Problems Problem Noted Date Diagnosed Date DM type 2 (diabetes mellitus , type 2) (CMS/HCC V24, CMS/HCC V28) 07/28/2011 Hyperlipidemia with target LDL less than 70 07/08 Overview (05/02/2024): IMO update Hypertension 07/28/2011 Non-ischemic cardiomyopathy ([facility] V24, [facility] V28) 07/28/2011 Encounters Date Type Department Care Team Description 12/31/2024 9:15 AM EDT Office Visit Orthopedic Surgery [facility] [address] [phone] Kota De La Torre, DPM Tinea pedis of both feet (Primary Dx); Dermatophytosis of nail; Primary osteoarthritis of both feet; Type II diabetes mellitus with peripheral circulatory disorder ([facility] V24, [facility] V28); Diabetic mononeuropathy simplex ([facility] V24, [facility] V28); Pain in toe of left foot; Pain in toe of right foot from Last 3 Months Social History [...] - - Weight 68 kg (150 lb) 12/31/2024 9:21 AM EDT Height 149.9 cm (4' 11.02 ) 12/31/2024 9:21 AM E DT Body Mass Index 30.28 12/31/2024 9:21 AM EDT Plan of Treatment Upcoming Encounters Date Type Department Care Team (Late st Contact Info) Description 02/20/2025 9:00 AM EDT Consult Vascular Surgery [facility] [address] [place] [phone] Tiffanie Holbrook MD [address] [place] [address] 03/04/2025 8:45 AM EDT Office Visit Orthopedic Surgery [facility] 250 [address] [facility] [address] [place] [phone] Kota De La Torre, DPM [address] [address] Health Maintenance Due Date Last Done Comments [...] Influencers of Health Screening 04/07/2024 Depression Screening 06/06/2024 Influenza Vaccine (#1) 2025 , 06/15/2023, 03/01/2022, Additional history exists Diabetes: Blood Sugar Control Test (HGBA1C) 05/29/2025 11/27/2024, 08/15/2024, 05/28/2024 Diabetes: Annual GFR (Glomerular Filtration Rate) 12/21/2025 12/21/2024, 09/04/2024, 08/28/2024, Additional history exists Hypertension/CHF/CAD Annual BMP Blood Test 12/21/2025 12/21/2024, 09/04/2024, 08/28/2024, Additional history exists Cholesterol Screening (Lipid Panel) 09/19/2028 09/20/2023 DTaP,Tdap,and [...] patient's age to complete this topic Insurance [facility] Member Subscriber Plan / Payer (Ef fective 2014-Present) Name:Candi Sanchez Relation to Subscriber:Self Name:Candi Sanchez Payer ID:[id number] Group ID:[id number] Type:Not on file Address: [place] [address] [address] [id number] Care Teams Prototype Machine Operator Relationship Specialty Start Date End Date Gavi Aldana DO [address] [place] [address] PCP - General Internal Medicine 10/27/11
--- NOTE | 2025-01-25 08:10 | MHC.OFFVIS ---
Vital Signs 01/25/25 08:16 Height 4 ft 11 in Weight 134 lb 0.657 oz BMI 27.1 BP 100/60 Blood Pressure Location Rt brachial Position Sitting Pulse 71 Pulse Source Pulse Oximeter Pulse Oximetry (%) 97 Oxygen Delivery Method Room Air Intake Visit Reasons: hand pain Intake Note: Patient presents for RA/OA and hand pain follow up. Product Marketing Coordinator Required: Yes Product Marketing Coordinator Language: Real Estate Transaction Manager Services: Product Marketing Coordinator Present Product Marketing Coordinator Name: Chapo [id number] Information Interpreted: non-clinical & clinical Allergies No Known Allergies Allergy (Verified 01/25/25 08:15) Medication List - Last Reconciled 01/25/25 by Megan Trinidad MD acetaminophen ER (Arthritis Pain Relief (acetaminophen) ER) 1 tab PO Q8H PRN acetone (urine) test (Ketone Urine Test strips) prn tid for glucose staying over 250 or symptoms of nausea/vomiting apixaban (Eliquis) 5 mg PO BID ascorbic acid (vitamin C) 500 mg PO DAILY baclofen 10 mg PO TID PRN blood sugar diagnostic As directed blood sugar diagnostic (FreeStyle Lite Strips) TEST BLOOD SUGAR FOUR TIMES DAILY blood-glucose meter (FreeStyle Lite Meter kit) As directed blood-glucose sensor (Dexcom G7 Sensor device) As directed blood-glucose,brake shoe rebuilder,cont (Dexcom G7 Senior Mechanical Designer) As directed Breo Ellipta 200-25 mcg/dose (fluticasone furoate-vilanterol) 1 inh inhalation DAILY 30 days NS etanercept (Enbrel SureClick) 50 mg subcut QWEEK famotidine 40 mg PO DAILY ferrous sulfate (FeroSul) 325 mg PO DAILY fluticasone propionate 50 mcg/actuation 2 sprays intranasal DAILY PRN folic acid 1 mg PO DAILY furosemide 40 mg PO DAILY glucagon 3 mg/actuation (Baqsimi) 3 mg intranasal .twice PRN 30 days MDD 6 mg glucose 7.5 - 15 grams PO glucose (Dex4 Glucose) 16 grams (4 x 4 gram) PO Q15M PRN 30 days MDD 16 tablets ibuprofen 600 mg PO TID insulin aspart U-100 (Novolog FlexPen U-100 Insulin aspart) subcutaneously inject 16-18 units tid with meals 90 days MDD 54 units insulin degludec (Tresiba FlexTouch U-200 insulin) 34 units (0.17 mL) subcut DAILY 90 days lancets (TRUEplus Lancets) As directed methotrexate sodium 15 mg (6 x 2.5 mg) PO QWEEK 90 days metoprolol tartrate 100 mg PO BID 30 days omeprazole 40 mg PO BID pen needle, diabetic (UltiCare Pen Needle) As directed pen needle, diabetic (BD Ultra-Fine Thania Pen Needle) USE DIRECTED FOUR TIMES DAILY sacubitril-valsartan 49-51 mg (Entresto) 1 tab PO BID sennosides-docusate sodium 8.6-50 mg (Senokot-S) 2 tab-caps (2 x 8.6-50 mg) PO BEDTIME spironolactone 25 mg PO DAILY HPI Comments Details: Patient is a 74-year-old female with hypertension, diabetes, coronary artery disease, heart failure with reduced ejection fraction, atrial fibrillation on digoxin and Eliquis who presents to [facility] for management of rheumatoid arthritis Interval History: Patient last seen 12/21/24 with mo - Not on any rheum medications - Self discontinued Mtx - Had not started Enbrel - improved on steroids but still with hand pain - Had significant synovitis - Restarted Mtx and Enbrel Today - On methotrexate 15mg weekly and Enbrel 50mg weekly - Doing much better! - Swelling improved, pain improved - Does get intermittent small tings of pain but these resolve within mins Rheumatologic History: Ddx RA ?start Mtx up til 2020 when lost to follow up Re established care 05/2024 Methotrexate 05/2024 - Enbrel added 09/2024 Patient diagnosed with seropositive rheumatoid arthritis several years ago. Was maintained on methotrexate however was lost to follow up since 2020. Previously taking methotrexate but that has since stopped. Sometimes intermittently has flares of her disease with swelling to her hands and her wrists but this would respond to [id number] Tylenol Arthritis. Has prolonged morning stiffness up to an hour. Her main complaints are her bilateral shoulders for which she recently got a steroid injection 1 month ago for. She also complains of knee pain worse at the end of the day impairs her ability to ascend stairs. Denies any shortness of breath, unexplained weight loss. 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 Current Rheumatology Medication(s): Methotrexate 15mg weekly Folic acid 1mg daily Enbrel 50mg SC weekly [facility] Medical History Polyarticular osteoarthritis Thyroid nodule greater than or equal to 1.5 cm in diameter incidentally noted on imaging study Thyroid nodule Helicobacter pylori gastritis Chronic cough On beta justine at home Nonischemic cardiomyopathy CHF (congestive heart failure) CAD (coronary artery disease) Thrombocytopenia Anemia Chronic GERD Elevated liver enzymes Seropositive rheumatoid arthritis Obesity (BMI 30-39.9) Vitamin D deficiency Dyslipidemia Hypertension 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 Mother No problems noted. Maternal Aunt Diabetes mellitus Social History Household Members: None Housing: Apartment Are you a primary infant childcare provider to a significant other at home: No Do you presently have visiting nurse or other home services: Yes (telephone) Alcohol intake: never Patient Tobacco Use Status: Never used Tobacco service: No Current occupational status: retired Current occupation: rt handed Review of Systems Const Details: Review of Systems Constitutional: Denies fever, chills, weight loss ENT: Denies vision changes, eye pain or eye redness, dental caries, dry mouth GI: Denies nausea, vomiting, diarrhea, abdominal pain, change in BM Pulm: Denies SOB, THOMPSON, hemoptysis, wheezing Cards: Denies chest pain, palpitations Skin: Denies Raynaud's, rash, nail changes, photosensitivity, BIN TRIPPER OPERATOR: Denies headaches, weakness, paresthesias, recurrent falls MSK: as per HPI All other systems reviewed and are unremarkable except noted above Physical Exam Exam Exam: Vital signs reviewed Physical Examination CONSTITUITIONAL Patient alert and cooperative. Well appearing and in no apparent painful distress MSK Hands Right Hand: Able to make a fist. No swelling or tenderness to palpation of these joints. Left Hand: Able to make a fist. No swelling or tenderness to palpation of these joints. Wrists Right Wrist: Full ROM. 70 degrees of wrist flexion, 80 degrees of wrist extension. No swelling or TTP Left Wrist: Full ROM. 70 degrees of wrist flexion, 80 degrees of wrist extension. No swelling or TTP Elbows Right Elbow: Full ROM. No swelling or TTP. No TTP of the medial and lateral epicondyles Left Elbow: Full ROM. No swelling or TTP. No TTP of the medial and lateral epicondyles Shoulders Right shoulder: Full ROM. No swelling noted. No TTP of the AC joint, subacromial bursa or posterior shoulder Left shoulder: Full ROM. No swelling noted. No TTP of the AC joint, subacromial bursa or posterior shoulder Knees Right knee: Full ROM. No swelling noted. No TTP of the knee joint line. TTP of pes anserine bursa Left knee: Full ROM. No swelling noted. No TTP of the knee joint lie or pes anserine bursa. Ankles Right ankle: Good ankle dorsiflexion and plantar flexion. No swelling. No TTP of the ankle joint Left ankle: Good ankle dorsiflexion and plantar flexion. No swelling. No TTP of the ankle joint Feet Right foot: Negative squeeze test Left foot: Negative squeeze test Tender points? No tenderness to palpation of the bilateral trapezius, supraspinatus, anterior costochondral junctions, bilateral suboccipital muscle insertions SKIN No rashes Vital Signs: Last Vital Signs Pulse 71 01/25/25 08:16 BP 100/60 01/25/25 08:16 Pulse Ox 97 01/25/25 08:16 Oxygen Delivery Method Room Air 01/25/25 08:16 BMI result Body Mass Index 27.1 Results Reviewed Results Reviewed: Laboratory Tests 09/04/24 12/21/24 09:02 13:48 WBC 9.9 RBC 5.04 Hgb 11.5 L Hct 37.8 Plt Count 155 L ESR 34 H 59 H Sodium 142 Potassium 3.8 Chloride 106 Carbon Dioxide 28 BUN 16 Creatinine 0.90 AST 28 ALT 15 C-Reactive Protein 0.46 2.52 H Laboratory Tests 04/12/19 06/18/19 11:47 11:25 Rheumatoid Factor 55.0 H Cycl Citrul Peptide IgG >250 H DARREN Screen Positive H DARREN Titer 1:80 H Laboratory Tests 09/04/24 09:02 Hepatitis A IgM Ab Nonreactive Hep Bs Antigen Negative Hep Bs Antibody REACTIVE Hep B Core Total Ab Nonreactive Hepatitis C Ab (EIA) Nonreactive TB Test (T-Spot) Com Negative Assessment & Plan Assessment & Plan (1) Seropositive rheumatoid arthritis: Code(s): M05.9 - Rheumatoid arthritis with rheumatoid factor, unspecified Category: Medical Plan: #Seropositive RA Patient is a 74-year-old female with seropositive rheumatoid arthritis here today for follow up. RA much improved Plan - Methotrexate 15mg weekly PO - Folic acid 1mg daily - Enbrel 50mg weekly SC - Labs today: CBC, CMP, ESR, CRP - RTC 4 months - Labs before visit: CBC, CMP, ESR, CRP (2) Polyarticular osteoarthritis: Code(s): M15.9 - Polyosteoarthritis, unspecified Category: Medical Plan: #Polyarticular OA Polyarticular OA involving shoulders and knees. Given that patient is on Eliquis would not recommend Celebrex. Has tried topical diclofenac in the past with out much relief. Has also tried physical therapy without much help. At this time limited in therapeutic that we can offer. Tried tramadol in the past which helped but she had stomach issues with it. She can continue receiving injections p.r.n.. Last injection for shoulders was 09/2023 (3) termite renewal inspector methotrexate user: Code(s): Z79.899 - Other snf (current) drug therapy Category: Medical Plan: #Long-term Current Use of Methotrexate Discussed with patient the benefits and risks of methotrexate for managing their rheumatic condition Benefits include reduced pain, reduced mortality, maintenance of remission and reduction of flares Risks include oral ulcers, photosensitivity, hepatotoxicity, hematologic toxicity, pneumonitis, flu-like symptoms (especially day after administration), nodulosis, lymphomas ? Limit alcohol and avoid Bactrim ? Monitoring: ?CBC, BMP, LFTs every 3-4 months and hepatitis serologies as needed (4) Encounter for monitoring of etanercept therapy: Code(s): Z51.81 - Encounter for therapeutic drug level monitoring; Z79.620 - [facility] (current) use of immunosuppressive biologic Plan: #Long-term Use of TNF Inhibitors: Etanercept Discussed with the patient the benefits and risks of TNF inhibitors for the management of the rheumatic condition Benefits include reduce pain, maintenance of remission and reduction of flares as well as ?progression of the disease Risks include injection sites/infusion reactions, serious infections (such as bacterial infections, opportunistic infections), malignancy, delaminating syndromes, autoimmune phenomena, CHF exacerbations, palmar plantar psoriasis and cytopenias Recommended rotating injection sites, and holding medication during and for up to 1 week after resolution of a febrile illness or open skin wound Plan I spent 30 minutes reviewing the record and labs, seeing the patient, discussing the treatment plan, and documenting in the medical record Orders: Orders C Reactive Protein Today Z79.60 - termite renewal inspector (current) use of unspecified immunomodulators and immunosuppressants Complete Blood Count Auto Diff Today Z79.60 - termite renewal inspector (current) use of unspecified immunomodulators and immunosuppressants Complete Blood Count Auto Diff 4 Months Z79.899 - Other termite exterminator helper (current) drug therapy Erythrocyte Sedimentation Rate 4 Months Z79.899 - Other snf (current) drug therapy Comprehensive Met. Panel Today M05.9 - Rheumatoid arthritis with rheumatoid factor, unspecified Erythrocyte Sedimentation Rate Today Z79.60 - termite renewal inspector (current) use of unspecified immunomodulators and immunosuppressants Comprehensive Met. Panel 4 Months Z79.899 - Other termite exterminator helper (current) drug therapy C Reactive Protein 4 Months Z79.899 - Other termite exterminator helper (current) drug therapy Coding Level of Care Code Est Pt Level 4 (48826) Complex EM visit Add On G2211 Diagnoses Seropositive rheumatoid arthritis M05.9 Polyarticular osteoarthritis M15.9 termite renewal inspector methotrexate user Z79.899 Encounter for monitoring of etanercept therapy Z51.81; Z79.620
[2025-01-25 08:16] VITALS: BP 100/60; PULSE 71; O2SAT 97; BMI 27.1
== END 2025-01-25 08:36 | disposition home or self-care (01) ==
LOC: HO.RHES 07:48
PROVIDERS: PCP Family Medicine; Visit Provider Student in an Organized Health Care Education/Training Program
DX: M05.9 Rheumatoid arthritis with rheumatoid factor, unspecified (principal); M15.9 Polyosteoarthritis, unspecified; Z79.899 Other long term (current) drug therapy; Z51.81 Encounter for therapeutic drug level monitoring; Z79.620 Long term (current) use of immunosuppressive biologic
CPT/HCPCS: 99214; G2211

== ENCOUNTER 2025-01-28 09:09 | Outpatient (AMB) | payer OTHER, SELFPAY ==
--- NOTE | 2025-01-28 09:21 | HO.NEPHOV ---
Vital Signs 01/28/25 09:23 Height 4 ft 11 in Weight 130 lb 8 oz BMI 26.4 BP 90/50 L Blood Pressure Location Rt brachial Position Sitting Pulse 69 Pulse Source Pulse Oximeter Pulse Oximetry (%) 96 Oxygen Delivery Method Room Air Intake Visit Reasons: 3 MO FU-Conf Accounts Payable Specialist Required: Yes Accounts Payable Specialist Language: Harmonic Analyst Services: Accounts Payable Specialist Present Accounts Payable Specialist Name: Catarina Dupont Information Interpreted: clinical only Accompanied by: Other Relationship Allergies No Known Allergies Allergy (Verified 01/28/25 09:23) HPI Comments Details: I had the pleasure of seeing Candi in follow up for proteinuria. She is a longstanding diabetic with poor glycemic control. She is followed by endocrinology. She has history of hypertension and nonischemic cardiomyopathy. She does not have any chest pain, shortness of breath, paroxysmal nocturnal dyspnea, orthopnea, urinary symptoms, hematuria, sensorineural deafness, orthostatic symptoms, epistaxis, hemoptysis, photosensitivity, joint swellings, skin rashes. She is known to have rheumatoid arthritis and is on methotrexate. She has been taking omeprazole for a long time. Her blood pressure has been at goal. She denies taking excessive nonsteroidal anti-inflammatories. She is on Entresto. Her renal functions had been normal and stable at baseline. She does not have any new bone or back pain. vp emerging media was used during this encounter. Family member was also physically present at that time. [facility] Medical History Polyarticular osteoarthritis Thyroid nodule greater than or equal to 1.5 cm in diameter incidentally noted on imaging study Thyroid nodule Helicobacter pylori gastritis Chronic cough On beta justine at home Nonischemic cardiomyopathy CHF (congestive heart failure) CAD (coronary artery disease) Thrombocytopenia Anemia Chronic GERD Elevated liver enzymes Seropositive rheumatoid arthritis Obesity (BMI 30-39.9) Vitamin D deficiency Dyslipidemia Hypertension 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 Mother No problems noted. Maternal Aunt Diabetes mellitus Social History Household Members: None Housing: Apartment Are you a primary ostomy care nurse to a significant other at home: No Do you presently have visiting nurse or other home services: Yes (telephone) Alcohol intake: never Patient Tobacco Use Status: Never used Tobacco service: No Current occupational status: retired Current occupation: rt handed Review of Systems Const All systems reviewed & are unremarkable except as noted in HPI and below Physical Exam Const General: comfortable and no acute distress Orientation/consciousness: patient oriented x3 HEENT Head: Yes normocephalic Mouth: Normal oral and palatal mucosa present Eyes EOM: EOMs intact bilaterally Neck Neck: Yes supple Resp Auscultation: clear to auscultation bilaterally Cardio Jugular venous distension: no JVD Rate: regular rate GI Palpation (GI): Soft to palpation Auscultation: normal bowel sounds General: Yes no CVA tenderness Back/Spine/Pelvis Back: no CVA tenderness Skin General skin exam: no rashes or lesions noted Neuro General: patient oriented x3 and moves all extremities Extrem General: Yes no pedal edema Results Reviewed Nephrology Results: Hgb, (12.0-16.0) 11.1 g/dl L 01/25/25 WBC, (4.8-10.8) 7.8 X10*3/uL 01/25/25 Plt Count, (160-400) 113 X10*3/uL L Δ 01/25/25 Sodium, (135-145) 142 mmol/L 01/25/25 Potassium, (3.3-5.1) 3.7 mmol/L 01/25/25 Chloride, (96-108) 108 mmol/L 01/25/25 Carbon Dioxide, (22-29) 28 mmol/L 01/25/25 BUN, (9-16) 19 mg/dL H 01/25/25 Creatinine, (0.5-1.4) 0.93 mg/dL 01/25/25 Calcium, (8.4-10.2) 9.3 mg/dL 01/25/25 Renal US 03/06/24 Assessment & Plan Assessment & Plan (1) Hypertension: Code(s): I10 - Essential (primary) hypertension Category: Medical Qualifiers: Hypertension type: primary hypertension Qualified Code(s): I10 - Essential (primary) hypertension (2) Diabetic nephropathy: Code(s): E11.21 - Type 2 diabetes mellitus with diabetic nephropathy Category: Medical Qualifiers: Diabetes mellitus type: type 1 Qualified Code(s): E10.21 - Type 1 diabetes mellitus with diabetic nephropathy Plan Candi has proteinuria for some time. It is most likely due to diabetic nephropathy. Even though differential diagnosis are quite broad, to unlikely to be anything other than diabetic nephropathy. Her edema has gone since I increased her lasix to 40 mg daily . There is no indication for any renal biopsy now. Her blood pressure needs to be maintain a goal. Her blood sugar control needs to be better. Biopsying her kidney can be challenging and she is on anticoagulation. She should avoid nonsteroidal anti-inflammatories. She is tolerating Entresto very well. I did not make any other medication changes today. All these have been explained in detail. Answered all questions. Follow-up appointment given Orders: Orders Protein Creatinine Ratio, Ur 3 Months E10.21 - Type 1 diabetes mellitus with diabetic nephropathy, I10 - Essential (primary) hypertension Blood Urea Nitrogen 3 Months E10.21 - Type 1 diabetes mellitus with diabetic nephropathy, I10 - Essential (primary) hypertension Electrolytes 3 Months E10.21 - Type 1 diabetes mellitus with diabetic nephropathy, I10 - Essential (primary) hypertension Hemoglobin A1c 3 Months E10.21 - Type 1 diabetes mellitus with diabetic nephropathy, I10 - Essential (primary) hypertension Immunofixation Pnl, Serum 3 Months E10.21 - Type 1 diabetes mellitus with diabetic nephropathy, I10 - Essential (primary) hypertension Immunofixation, Random Urine 3 Months E10.21 - Type 1 diabetes mellitus with diabetic nephropathy, I10 - Essential (primary) hypertension Creatinine 3 Months E10.21 - Type 1 diabetes mellitus with diabetic nephropathy, I10 - Essential (primary) hypertension Coding Level of Care Code Est Pt Level 4 (96277) Diagnoses Primary hypertension I10 Hypertension type: primary hypertension Diabetic nephropathy associated with type 1 diabetes mellitus E10. Diabetes mellitus type: type 1
[2025-01-28 09:23] VITALS: BP 90/50; PULSE 69; O2SAT 96; BMI 26.4
--- OUTSIDE RECORDS SUMMARY | 2025-01-28 09:51 | XMS_ITS | Clinical Summary ---
Author Organization [facility] Address [address] [place] [address] Phone Care Team Providers Care Nuclear Criticality Safety Engineer Name Role Phone FlacoGavi humphreys Primary Care Provider [phone]- [phone] Allergies No known active allergies Medications metFORMIN [...] (05/02/2024): IMO update Hypertension 07/28/2011 Non-ischemic cardiomyopathy ([facility] V24, [facility] V28) 07/28/2011 Encounters Date Type Department Care Team Description 12/31/2024 9:15 AM EDT Office Visit Orthopedic Surgery [facility] [address] [phone] Kota De La Torre, DPM Tinea pedis of both feet (Primary Dx); Dermatophytosis of nail; Primary osteoarthritis of both feet; Type II diabetes mellitus with peripheral circulatory disorder ([facility] V24, [facility] V28); Diabetic mononeuropathy simplex ([facility] V24, [facility] V28); Pain in toe of left foot; [...] 02/20/2025 9:00 AM EDT Consult Vascular Surgery [facility] [address] [place] [phone] Tiffanie Holbrook MD [address] [place] [address] 03/04/2025 8:45 AM EDT Office Visit Orthopedic Surgery [facility] 250 175 [facility] [address] [place] [phone] Kota De La Torre, DPM [address] [address] Health Maintenance Due Date Last Done Comments [...] age to complete this topic Insurance [facility] Member Subscriber Plan / Payer (Ef fective 2014-Present) Name:Candi Sanchez Relation to Subscriber:Self Name:Candi Sanchez Payer ID:[id number] Group ID:[id number] Type:Not on file Address: [place] [address] [address] [phone] Care Teams Nuclear Criticality Safety Engineer Relationship Specialty Start Date End Date Gavi Aldana DO [address] [place] [address] PCP - General Internal Medicine 10/27/11
--- OUTSIDE RECORDS SUMMARY | 2025-01-28 09:51 | XMS_ITS | Encounter Summary ---
Author Organization [employer] Address [address] [place] [address] [address] [place] [address] Care Team Providers Care Electrical Mechanic Name Role Phone Gavi Aldana DO Primary Care Provider +1 [phone] Encounter Details Date Type Department Care Team (Latest Contact Info) Description 03/10/2022 Abstract [facility] CONVERSIONS Dental, Provider, DDS Social [...] as of this encounter Plan of Treatment Not on file documented as of this encounter Visit Diagnoses Not on filedocumented in this encounter Care Teams Electrical Mechanic Relationship Specialty Start Date End Date Gavi Aldana DO [address] [place] [address] PCP - General Family Medicine 06/06/18 documented as of this encounter
== END 2025-01-28 09:37 | disposition home or self-care (01) ==
LOC: HO.HKA 09:10
PROVIDERS: PCP Family Medicine; Visit Provider Internal Medicine Nephrology
DX: I10 Essential (primary) hypertension (principal); E10.21 Type 1 diabetes mellitus with diabetic nephropathy
CPT/HCPCS: 99214

== ENCOUNTER → 2025-01-28 09:09 | Outpatient (BNVA) | payer OTHER, SELFPAY | PROVIDERS: PCP Family Medicine; Visit Provider Internal Medicine Nephrology | DX: E10.21 Type 1 diabetes mellitus with diabetic nephropathy (principal); I10 Essential (primary) hypertension | CPT/HCPCS: 99212 ==

== ENCOUNTER 2025-01-29 08:13 | Outpatient (AMB) | payer OTHER, SELFPAY ==
[2025-01-29 08:19] VITALS: BP 100/50; PULSE 72; O2SAT 93; BMI 26.8
--- NOTE | 2025-01-29 08:19 | A.OFFVIS_ITS ---
Vital Signs 3 01/29/25 08:19 Height 4 ft 11 in Weight 132 lb 7.965 oz BMI 26.8 BP 100/50 L Blood Pressure Location Rt brachial Position Sitting Pulse 72 Pulse Source Pulse Oximeter Pulse Oximetry (%) 93 Oxygen Delivery Method Room Air Intake Visit Reasons: type 1 DM and thyroid Intake Note: Patient present today for Type 2 Diabetes Mellitus and thyroid office visit. Last Diabetic eye exam: 11/2024 Last Podiatry Visit: 11/2024 Random Glucose: 202 mg/dl HgA1C: 7.7% Orthoptist Required: Yes Orthoptist Language: Electrical Assembly Technician Services: Orthoptist Present Orthoptist Name: Emili [id number] Information Interpreted: non-clinical & clinical Accompanied by: POULTRY INSEMINATOR Allergies No Known Allergies Allergy (Verified 01/29/25 08:25) Medication List - Last Reconciled 01/29/25 by Shruthi Cui MD acetaminophen ER (Arthritis Pain Relief (acetaminophen) ER) 1 tab PO Q8H PRN acetone (urine) test (Ketone Urine Test strips) prn tid for glucose staying over 250 or symptoms of nausea/vomiting apixaban (Eliquis) 5 mg PO BID ascorbic acid (vitamin C) 500 mg PO DAILY baclofen 10 mg PO TID PRN blood sugar diagnostic As directed blood sugar diagnostic (FreeStyle Lite Strips) TEST BLOOD SUGAR FOUR TIMES DAILY blood-glucose meter (FreeStyle Lite Meter kit) As directed blood-glucose sensor (Dexcom G7 Sensor device) As directed blood-glucose,electrician's helper,cont (Dexcom G7 Lace Machine Operator) As directed Breo Ellipta 200-25 mcg/dose (fluticasone furoate-vilanterol) 1 inh inhalation DAILY 30 days NS empagliflozin (Jardiance) 10 mg PO DAILY etanercept (Enbrel SureClick) 50 mg subcut QWEEK famotidine 40 mg PO DAILY ferrous sulfate (FeroSul) 325 mg PO DAILY fluticasone propionate 50 mcg/actuation 2 sprays intranasal DAILY PRN folic acid 1 mg PO DAILY furosemide 40 mg PO DAILY glucagon 3 mg/actuation (Baqsimi) 3 mg intranasal .twice PRN 30 days MDD 6 mg glucose 7.5 - 15 grams PO glucose (Dex4 Glucose) 16 grams (4 x 4 gram) PO Q15M PRN 30 days MDD 16 tablets ibuprofen 600 mg PO TID insulin aspart U-100 (Novolog FlexPen U-100 Insulin aspart) subcutaneously inject 12 -14 units before breakfast and lunch, 10 units before dinner 90 days MDD 54 units insulin degludec (Tresiba FlexTouch U-200 insulin) 12 units (0.06 mL) subcut DAILY 90 days lancets (TRUEplus Lancets) As directed methotrexate sodium 15 mg (6 x 2.5 mg) PO QWEEK 90 days metoprolol tartrate 100 mg PO BID 30 days omeprazole 40 mg PO BID pen needle, diabetic (UltiCare Pen Needle) As directed pen needle, diabetic (BD Ultra-Fine Thania Pen Needle) USE DIRECTED FOUR TIMES DAILY sacubitril-valsartan 49-51 mg (Entresto) 1 tab PO BID sennosides-docusate sodium 8.6-50 mg (Senokot-S) 2 tab-caps (2 x 8.6-50 mg) PO BEDTIME spironolactone 25 mg PO DAILY HPI Comments Details: 74 years with history of GERD, rheutmatoid arthritis, Type 1 DM , CHF coming in today for follow up of type 1 diabetes mellitus and thyroid nodules. Here with POULTRY INSEMINATOR. Type 1 diabetes mellitus DM type 1 diagnosed 2009 . She was last seen 10/28 by Silvia Rider APRN. hemoglobin A1c POC 01/29/25 7.7% 07/17/2024 8.8% Current regimen Tresiba 12 to 14 units at night (some days skips the Tresiba? when she has low blood sugars ) Novolog 12 to 14 units TID with meals She was seen by CDE November 2024, apparently back in July 2024 there was some discussion about considering ilet, but patient cannot tell me today where that discussion went, last visit with Sarah, i dont see any mention of insulin pump Previously had been on Omnipod but had skin reaction to pods. C peptide 0.47 09/2023 Dexcom G7 downloaded from January 16 to 01/29/2025 Average glucose 191 mg/dL G TX 7.9% Coefficient of variation 33% Within target range 46% High 36% Very high 17% Low 1% Very low less than 1% Time CGM active 87% Interpretation: Overnight and post breakfast and lunch hyperglycemia. She does have some low blood sugars post dinner. Also does have some hypoglycemia following hyperglycemia. Micro and macrovascular complications: CAD, nephropathy No retinopathy last eye exam 11/28 has glaucoma No neuropathy: Symptoms reported: denies numbness, tingling, cramping in lower extremities She does have some arthritis pain in her foot. 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 [facility] . 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 TSH normal September 27. US THYROID 04/28 I reviewed the images myself, and she does have a right-sided dominant nodule measuring 2.2 cm, which is solid hyperechoic, it is hard to tell of the lower border, though this is reported as it taller than wide, which makes it MICHEL high suspicious category, with greater than 50% chance of malignancy. She also has other left-sided nodules, with a 2.2 cm left mid lobe nodule that is solid, hyperechoic TR 3 category and another 2 cm left inferior lobe nodule which is also solid and hyperechoic and TR 3 category, these are both MICHEL low suspicion nodules with 5-10% chance of malignancy. FNA 02/21 of the right dominant 2.2 cm nodules revealed AUS with nuclear atypia , Afirma benignb (less than 4% risk of malignany) Describes chronic cough for the past year, accompanied by difficulty swallowing which has persisted. Difficulty with pills , solids and liquids. But she says it is mildly bothersome with repeatedly clearing her throat, but still able to eat. No voice changes. No difficulty breathing. She has diffculty laying too flat, gets dizzy, uses two pillows. Patient currently denies heat or cold intolerance, diarrhea or constipation, hair loss, palpitation, anxiety, weight changes, mood changes, low energy, changes in appearance of eyes or vision changes, tremors, increased diaphoresis or dry skin. ? Patient denies any history of childhood neck radiation. Denies having ever used lithium, amiodarone or biotin supplements. Patient denies any family history of thyroid cancer or thyroid disease. Brother had lung cancer, was a smoker no other family history of cancer. August 2024 had repeat ultrasound which showed a right lower pole 0.9 cm nodule mixed cystic solid, hypoechoic, which would be a TR 3 category nodule, remained stable in size compared to previous ultrasound. The previous right lower pole dominant nodule is now measured as right mid/lower pole 1.7 cm nodule which is TR 3 category, but this was the 2.2 cm nodule that we biopsied back in February 2024 which was benign on Afirma., a right lower pole 1.6 cm mixed cystic solid isoechoic TR 3 nodule which does not meet criteria for FNA. This was not visualized previously? The left midpole nodule measures as 1.6 cm in largest dimension which is solid isoechoic, TR 3 category that has decreased in size compared to largest dimension 2.2 previously, I will left lower pole 1.6 cm nodule which is solid isoechoic TR 3 category, has also decreased in size from 2 cm. Overall comparison is difficult to prior images. But overall nodules looks stable. Labs September 2024 normal TSH free t4 Physical exam General: sitting comfortably in no acute distress HEENT: normocephalic/atraumatic, moist oral mucosa Neck: supple, palpable nodules on both the right and left side. Measuring about 1-2 cm. Cardiac: normal heart sounds Pulm: normal breath sounds B/L, no added breath sounds Abd: not distended, no tenderness Extremities: no edema, no signs of myxedema Neuro: AAO x3, Speech: normal, no facial droop, moving all 4 extremities Laboratory Tests 09/20/23 09/04/24 07:27 09:02 TSH 2.41 1.41 Free T4 1.31 Laboratory Tests 01/04/24 01/24/24 07/17/24 10:50 07:30 09:45 Hgb Hct Plt Count Sodium Creatinine Estimated GFR Glucose (Clinic) Hgb A1c (Clinic) 8.6 H 8.8 H AST ALT Albumin Triglycerides Cholesterol LDL Cholesterol, Calc HDL Cholesterol Vitamin B12 TSH Free T4 U Random Total Protein Ur 24 Hour Volume 1200 Ur Creatinine mg/dL 59.20 Ur Creatinine 24 Hour 0.7 L Urine Creatinine Ur Total Protein 24 Hr 552 H Protein/Creatinin Ratio 08/15/24 08/15/24 09/04/24 09:42 09:43 09:02 Hgb Hct Plt Count Sodium Creatinine Estimated GFR Glucose (Clinic) Hgb A1c (Clinic) AST ALT Albumin Triglycerides 88 Cholesterol 146 LDL Cholesterol, Calc 76 HDL Cholesterol 53 Vitamin B12 726 TSH 1.41 Free T4 1.31 U Random Total Protein 407 H Ur 24 Hour Volume Ur Creatinine mg/dL Ur Creatinine 24 Hour Urine Creatinine 197.80 Ur Total Protein 24 Hr Protein/Creatinin Ratio 2.06 H 01/25/25 01/29/25 01/29/25 08:44 08:27 08:30 Hgb 11.1 L Hct 36.7 L Plt Count 113 L D Sodium 142 Creatinine 0.93 Estimated GFR 59 Glucose (Clinic) 202 H Hgb A1c (Clinic) 7.7 H AST 27 ALT 11 Albumin 3.5 Triglycerides Cholesterol LDL Cholesterol, Calc HDL Cholesterol Vitamin B12 TSH Free T4 U Random Total Protein Ur 24 Hour Volume Ur Creatinine mg/dL Ur Creatinine 24 Hour Urine Creatinine Ur Total Protein 24 Hr Protein/Creatinin Ratio US THYROID 08/23/24 CLINICAL INFORMATION: Nontoxic single thyroid nodule COMPARISON: None available. TECHNIQUE: Linear transducer grayscale and color Doppler examination with attention to the region of the thyroid. FINDINGS: SIZE: Measurements of the thyroid lobes and nodules are given in sagittal, anteroposterior and transverse dimensions respectively. Right Thyroid Lobe: 5.5 x 2.9 x 2.4 cm, volume 20 mL. Previously 4.7 x 2.7 x 2.4 cm. Volume 14.4 mL Parenchyma: The gland echotexture is normal. Thyroid vascularity is normal. Left Thyroid Lobe: 5.5 x 3.2 x 2.3 cm, volume 22 mL. Previously 4.5 x 2.7 x 2.4 cm. Volume 13.9 mL Parenchyma: The gland echotexture is normal. Thyroid vascularity is normal. Isthmus: 0.3 cm in maximum AP dimension. Estimated total number of nodules greater than or equal to 1 cm: 4. Key Bed Installer nodules are described as follows: 1. Location: Right distal mass lower pole. Size: 0.9 x 0.4 x 0.7 cm, volume 0.106 mL. Nodule characteristics: Composition: Mixed cystic and solid (1). Echogenicity: Hypoechoic Shape: Wider Margins: Smooth (0). Echogenic Foci: None (0). ACR TI-RADS total points: 4 ACR TI-RADS category: TR 4 2. Location: Right mid/lower pole. Size: 1.7 x 1.3 x 1.5 cm, volume 1.6 mL. Nodule characteristics: Composition: Solid (2). Echogenicity: Isoechoic (1). Shape: Widened Margins: Smooth (0). Echogenic foci : None. ACR TI-RADS total points: 3 ACR TI-RADS category: 3 3. Location: Right lower pole. Size: 1.5 x 1.4 x 1.6 cm, volume 1.7 mL. Nodule characteristics: Composition: Solid/almost completely solid (2). Echogenicity: Isoechoic (1). Shape: Wider Margins: Smooth (0). Echogenic Foci: None (0). ACR TI-RADS total points: 3 ACR TI-RADS category: 3 4. Location: Left midpole. Size: 1.4 x 1.1 x 1.6 cm, volume 1.3 mL. Previously measured 2.2 x 1.1 x 2.0 cm and volume 2.4. Nodule characteristics: Composition: Solid (2). Echogenicity: Isoechoic (1). Shape: Wider Margins: Smooth (0). Echogenic Foci: None (0). ACR TI-RADS total points: 3 ACR TI-RADS category: 3. 5. Left lower pole nodule. It measures 1.3 x 1.2 x 1.6 cm in volume 1.3 mL. Previously measured 2.0 x 1.8 x 1.4 cm in volume mL. There is a solid nodule with isoechoic texture, wider, smoother margins and no echogenic foci. Total points 3. Ti-rads 3. NODES: No lymphadenopathy is seen in the tissue surrounding the thyroid gland. US/US thyroid IMPRESSION: Enlarged bilateral thyroid lobes. Multiple nodules largest measuring 1.7 cm right mid to lower pole. Most of these are solid nodules. Recommend continued follow-up US THYROID 04/28 CLINICAL INFORMATION: Abnormal findings on diagnostic imaging. COMPARISON: CT chest without contrast 02/03/2023. TECHNIQUE: Linear transducer mena-scale and color Doppler examination with attention to the region of the thyroid. Technically difficult study secondary to thyroid located low in neck, bilateral lower poles limited visualization. FINDINGS: SIZE: Measurements of the thyroid lobes and nodules are given in sagittal, anteroposterior and transverse dimensions respectively. Right Thyroid Lobe: 4.7 x 2.7 x 2.4 cm, volume 14.4 mL. Parenchyma: The gland echotexture is heterogeneous. Thyroid vascularity is normal. Left Thyroid Lobe: 4.5 x 2.7 x 2.4 cm, volume 13.9 mL. Parenchyma: The gland echotexture is heterogeneous. Thyroid vascularity is normal. Isthmus: 0.3 cm in maximum AP dimension. Estimated total number of nodules greater than or equal to 1 cm: 4. Key Bed Installer nodules are described as follows: 1. Location: Right isthmus inferior. Size: 0.8 x 0.4 x 0.9 cm, volume 0.15 mL. Nodule characteristics: Composition: Solid (2). Echogenicity: Hypoechoic (2). Shape: Not taller than wide (0). Margins: Smooth (0). Echogenic Foci: None (0). ACR TI-RADS total points: 4 ACR TI-RADS category: 4 2. Location: Right inferior. Size: 1.1 x 0.9 x 0.4 cm, volume 0.2 mL. Nodule characteristics: Composition: Cystic(0). ACR TI-RADS total points: 0 ACR TI-RADS category: 1 3. Location: Right inferior. Size: 2.2 x 1.9 x 1.6 cm, volume 2.5 mL. Nodule characteristics: Composition: Solid (2). Echogenicity: Hyperechoic (1). Shape: Taller than wide (3). Margins: Ill-defined (0). Echogenic Foci: None (0). ACR TI-RADS total points: 6 ACR TI-RADS category: 4 4. Location: Left mid. Size: 2.2 x 1.1 x 2.0 cm, volume 2.4 mL. Nodule characteristics: Composition: Solid/almost completely solid (2). Echogenicity: Hyperechoic (1). Shape: Not taller than wide (0). Margins: Smooth (0). Echogenic Foci: None (0). ACR TI-RADS total points: 3 ACR TI-RADS category: 3 5. Location: Left inferior. Size: 2.0 x 1.8 x 1.4 cm, volume 2.7 mL. Nodule characteristics: Composition: Solid (2). Echogenicity: Hyperechoic (1). Shape: Not taller than wide (0). Margins: Smooth (0). Echogenic Foci: None (0). ACR TI-RADS total points: 3 ACR TI-RADS category: 3 NODES: No lymphadenopathy is seen in the tissue surrounding the thyroid gland. US/US thyroid IMPRESSION: 1. A 2.2 cm inferior thyroid lobe TR 4 nodule meets ACR biopsy criteria and is amenable to ultrasound-guided biopsy, if clinically indicated and not already performed. 2. There is a diffuse goiter. 3. There is heterogeneous thyroid echotexture, consistent with thyroiditis. [facility] Medical History Polyarticular osteoarthritis Thyroid nodule greater than or equal to 1.5 cm in diameter incidentally noted on imaging study Thyroid nodule Helicobacter pylori gastritis Chronic cough On beta justine at home Nonischemic cardiomyopathy CHF (congestive heart failure) CAD (coronary artery disease) Thrombocytopenia Anemia Chronic GERD Elevated liver enzymes Seropositive rheumatoid arthritis Obesity (BMI 30-39.9) Vitamin D deficiency Dyslipidemia Hypertension 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 Mother No problems noted. Maternal Aunt Diabetes mellitus Social History Household Members: None Housing: Apartment Are you a primary multi care technician to a significant other at home: No Do you presently have visiting nurse or other home services: Yes (telephone) Alcohol intake: never Patient Tobacco Use Status: Never used Tobacco service: No Current occupational status: retired Current occupation: rt handed Physical Exam Vital Signs: Last Vital Signs Pulse 72 01/29/25 08:19 BP 100/50 L 01/29/25 08:19 Pulse Ox 93 01/29/25 08:19 Oxygen Delivery Method Room Air 01/29/25 08:19 BMI result Body Mass Index 26.8 Office Procedures Glucose Monitoring Details Details: See [facility] [address] - Glucose monitoring, continuous-physician I&R Procedure code (CPT) selection complete Results AMB Hemoglobin A1c 2 AMB Hemoglobin A1c 7.7 % Last Edit by LILLY Issa on 01/29/25 08:41 Results Reviewed Results Reviewed: Laboratory Last Values Glucose (Clinic) 202 mg/dL (60-115) H 01/29/25 08:27 Hgb A1c (Clinic) 7.7 % (4.0-6.0) H 01/29/25 08:30 Assessment & Plan Assessment & Plan (1) Diabetes type 1, uncontrolled: Code(s): E10.65 - Type 1 diabetes mellitus with hyperglycemia Category: Medical Qualifiers: Glycemic state: with hyperglycemia Qualified Code(s): E10.65 - Type 1 diabetes mellitus with hyperglycemia Plan: 74-year-old female coming in today for type 1 diabetes mellitus with complications of nephropathy, CKD stage 3, CAD. A1c POC 01/29/2025 at 7.7% which is improved from 8.8% in July 2024. However CGM data downloaded, she has a Dexcom G7 which shows hyperglycemia overnight plus postprandially after breakfast and lunch. Some days she has hypoglycemia post dinner. Also does have some hypoglycemia following hyperglycemia. Some days she apparently also skips the Tresiba if her blood sugars are too low at bedtime. I discussed with her that Tresiba reflects more her morning numbers rather than her bedtime numbers and her bedtime numbers are more reflective of her post dinner levels. I advised her to not skip the Tresiba. To consistently take Tresiba of the same amount so we know how to modify it. She is also on Jardiance 10 mg daily started by cardiology, has CKD stage 3, nephrology is also following. Plan: -Insulin Tresiba 12 units daily at bedtime Insulin novolog 12 to 14 units before breakfast and lunch, 10 units before dinner Take novolog 15 mins before meals (2) Thyroid nodule greater than or equal to 1.5 cm in diameter incidentally noted on imaging study: Code(s): E04.1 - Nontoxic single thyroid nodule Category: Medical Plan: Patient with no family history of thyroid cancer, with no personal history of head or neck radiation who is coming in today to discuss results of FNA done 02/21. She has had a chronic cough for about the last year that has been persistent, she also has a history of GERD, she was evaluated by pulmonology and chest CT led to incidental discovery of multinodular goiter. Subsequent ultrasound thyroid in April 2023 showed multiple bilateral nodules, with a right-sided dominant nodule measuring 2.2 cm, which is solid hyperechoic, , reported as it taller than wide, which makes it MICHEL high suspicious category, with greater than 50% chance of malignancy. She also has other left-sided nodules, with a 2.2 cm left mid lobe nodule that is solid, hyperechoic TR 3 category and another 2 cm left inferior lobe nodule which is also solid and hyperechoic and TR 3 category, these are both MICHEL low suspicion nodules with 5-10% chance of malignancy. Underwent FNA 02/22/24 of the right dominant 2.2 cm nodules revealed AUS with nuclear atypia , Afirma benign (less than 4% risk of malignancy). August 2024 had repeat ultrasound which showed a right lower pole 0.9 cm nodule mixed cystic solid, hypoechoic, which would be a TR 3 category nodule, remained stable in size compared to previous ultrasound. The previous right lower pole dominant nodule is now measured as right mid/lower pole 1.7 cm nodule which is TR 3 category, but this was the 2.2 cm nodule that we biopsied back in February 2024 which was benign on Afirma., a right lower pole 1.6 cm mixed cystic solid isoechoic TR 3 nodule which does not meet criteria for FNA. This was not visualized previously? The left midpole nodule measures as 1.6 cm in largest dimension which is solid isoechoic, TR 3 category that has decreased in size compared to largest dimension 2.2 previously, I will left lower pole 1.6 cm nodule which is solid isoechoic TR 3 category, has also decreased in size from 2 cm. Overall comparison is difficult to prior images. But overall nodules looks stable. She does have some degree of compressive symptoms, she does report bothersome cough and dysphagia. the cough could be from her chronic GERD, I explained to her that her thyroid appears normal in size and her nodules are not big enough to be responsible for these symptoms. At this point would not recommend thyroid surgery eval. Patient verbalized understanding and is agreeable with the plan. Plan: -we will plan to repeat TFTs and thyroid ultrasound in August 2025 Plan I spent 30 minutes in reviewing the record, seeing the patient and documenting in the medical record. Orders: Orders 2 AMB Hemoglobin A1c Today E10.65 - Type 1 diabetes mellitus with hyperglycemia, Z13.9 - Encounter for screening, unspecified AMB Glucose Monitoring Today E10.65 - Type 1 diabetes mellitus with hyperglycemia Medications: Changed 2 From insulin aspart U-100 (Novolog FlexPen U-100 Insulin aspart) subcutaneously inject 16-18 units tid with meals 90 days 52 mL 3RF MDD 54 units To insulin aspart U-100 (Novolog FlexPen U-100 Insulin aspart) subcutaneously inject 12 -14 units before breakfast and lunch, 10 units before dinner 52 mL 3RF 90 days MDD 54 units From insulin degludec (Tresiba FlexTouch U-200 insulin) 34 units (0.17 mL) subcut DAILY 90 days 18 mL 3RF E10.65 - Type 1 diabetes mellitus with hyperglycemia To insulin degludec (Tresiba FlexTouch U-200 insulin) 12 units (0.06 mL) subcut DAILY 5.4 mL 3RF 90 days E10.65 - Type 1 diabetes mellitus with hyperglycemia Patient Instructions: Insulin Tresiba 12 units daily at bedtime Insulin novolog 12 to 14 units before breakfast and lunch, 10 units before dinner Take novolog 15 mins before meals Recommended patient use an antihistamine cream, or nasal spray on skin prior to adhering Dexcom G7 Coding Level of Care Code Est Pt Level 4 (56289) Diagnoses Uncontrolled type 1 diabetes mellitus with hyperglycemia E10.65 Glycemic state: with hyperglycemia Thyroid nodule greater than or equal to 1.5 cm in diameter incidentally noted on imaging study E04.1 CPT Codes Details - CPT: 78873 - Glucose monitoring, continuous-physician I&R ([id number]) Time Spent (min) 30
--- OUTSIDE RECORDS SUMMARY | 2025-01-29 08:19 | XMS_ITS | Encounter Summary ---
Author Organization [employer] Address [address] [place] [address] [address] [place] [address] Care Team Providers Care Fashion Consultant Selling Name Role Phone Gavi Aldana DO Primary Care Provider [phone]- [phone] Encounter Details Date Type Department Care Team ([facility] st Contact Info) Description 12/14/2022 Orders Only [facility] [address] [place] [address] Gavi Duarte LPN Social History Tobacco Use [...] on filedocumented in this encounter Care Teams Fashion Consultant Selling Relationship Specialty Start Date End Date Gavi Aldana DO [address] [place] [address] PCP - General Family Medicine 06/06/18 documented as of this encounter
--- OUTSIDE RECORDS SUMMARY | 2025-01-29 08:19 | XMS_ITS | Encounter Summary ---
Author Organization [employer] Address [address] [place] [address] [address] [place] [address] Care Team Providers Care Track Moving Machine Operator Name Role Phone Gavi Aldana DO Primary Care Provider [phone] Encounter Details Date Type Department Care Team (Latest Contact Info) Description 03/10/2022 Abstract [facility] CONVERSIONS Dental, Provider, DDS Social [...] on filedocumented in this encounter Care Teams Track Moving Machine Operator Relationship Specialty Start Date End Date Gavi Aldana DO [address] [place] [address] PCP - General Family Medicine 06/06/18 documented as of this encounter
--- OUTSIDE RECORDS SUMMARY | 2025-01-29 08:19 | XMS_ITS | Encounter Summary ---
Author Organization [employer] Address [address] [place] [address] [address] [place] [address] Care Team Providers Care Grain Elevator Agent Name Role Phone Gavi Aldana DO Primary Care Provider +1 [phone] Encounter Details Date Type Department Care Team (Latest Contact Info) Description 09/25/2018 Abstract [facility] CONVERSIONS Dental, Provider, DDS Social History [...] on filedocumented in this encounter Care Teams Grain Elevator Agent Relationship Specialty Start Date End Date Gavi Aldana DO [address] [place] [address] PCP - General Family Medicine 06/06/18 documented as of this encounter
--- OUTSIDE RECORDS SUMMARY | 2025-01-29 08:19 | XMS_ITS | Encounter Summary ---
Author Organization [employer] Address [address] [place] [address] [address] [place] [address] Care Team Providers Care Parking Station Attendant Name Role Phone Gavi Aldana DO Primary Care Provider [phone]- [phone] Reason for Visit * Reason Comments Med Refill Encounter Details Date Type Department Care Team (Late st Contact Info) Description 10/11/2022 Refill [facility] MED[facility]INE [address] [place] [address] Gavi Aldana DO [address] [place] [address] Other chronic pain Social History Tobacco Use [...] pain documented in this encounter Care Teams Parking Station Attendant Relationship Specialty Start Date End Date Gavi Aldana DO [address] [place] [address] PCP - General Family Medicine 06/06/18 documented as of this encounter
--- OUTSIDE RECORDS SUMMARY | 2025-01-29 08:19 | XMS_ITS | Clinical Summary ---
Author Organization [employer] Address [address] [place] [address] 7[address] [place] [address] Care Team Providers Care Furniture Finisher Helper Name Role Phone Gavi Aldana DO Primary Care Provider Allergies Active Allergy Reactions Criticality Noted Date Comments Lui Sa Inhibitors Cough,Hives 08/10/2010 Medications Skin Protectants, Misc. (Minerin Creme) creamIndicatio ns:Dry skin APPLY TO DRY SKIN 2 TO 3 TIMES PER DAY 454 g 4 06/22/19 23 Active Skin Protectants, Misc. (eucerin) cream apply topically to dry skin 2-3times a day 09/24/19 22 Active Nystop 654113 UNIT/GM powder APPLY TO THE AFFECTED AREA(S) [...] 3-6 UNITS SUBCUTANEOUSLY THREE TIMES DAILY 12/15/19 23 Active Lantus SoloStar 100 UNIT/ML pen 07/31/20 23 Active BD Pen Needle Thania U/F 32G [...] by mouth in the morning. 10/12/19 Active UltiCare Short Pen Artesian 31G X 8 MM misc USE DIRECTED FOUR TIMES DAILY 01/12/20 Active Breo Ellipta 200-25 MCG/ACT aerosol powder [...] Active cholecalcifero l (Vitamin D-3) 50 MCG (2000 UT) capsule [...] 12 hours. 30 patch 08/16/19 25 Active Diclofenac Sodium 1 % gel Apply 2 g topically if needed in the morning, at noon, in the evening, and at bedtime (pain). 150 g 11/28/19 25 Active omeprazole (PriLOSEC) [address] capsule Take 1 capsule (40 mg) by mouth before breakfast and before evening meal. 60 capsule 11/28/19 25 Active fexofenadine (Barbara) 180 MG tablet Take 1 tablet (180 mg) by mouth Once per day. 30 tablet 11/28/19 25 026 Active benzonatate (Tessalon) 100 MG capsule Take 1 capsule (100 mg) by mouth if needed in the morning, at noon, and at bedtime for cough. Do not crush or chew. 30 capsule 11/28/19 25 Active triamcinolone (Nasacort) 55 MCG/ACT nasal inhaler Administer 2 sprays into each nostril Once per day. 16.5 g 11/28/19 25 026 Active baclofen (Lioresal) 10 MG tabletIndicati ons:Acute pain of right shoulder TAKE 1 TABLET BY MOUTH THREE TIMES DAILY NEEDED 42 tablet 12/29/19 25 Active acetaminophen- codeine (Tylenol w/ Codeine #3) 300-30 MG tabletIndicati ons:Chronic bilateral low back pain without sciatica TAKE 1 TABLET BY MOUTH TWICE DAILY IN THE MORNING AND AT BEDTIME NEEDED FOR SEVERE PAIN 14 tablet 12/29/19 25 025 Active Problems Problem Noted Date [...] reports she was exposed to Covid-19 at religious but she always wears a mask Physical exam wnl Rapid strep, Covid and Flu negative Plan: supportive measures, recommended Tylenol prn, pt to test at home if symptoms do not improve or worsen and notify us if positive or worsening of symptoms Pt verbalized understanding Encounters Date Type Department Care Team Description 01/25/2025 Orders Only GENERIC EXTERNAL DATA DEPARTMENT Provider, Generic External Data 12/28/2024 Refill [facility] [address] [place], [place] [phone] Gavi Aldana DO Acute pain of right shoulder; Chronic bilateral low back pain without sciatica 12/21/2024 Orders Only GENERIC EXTERNAL DATA DEPARTMENT Provider, Generic External Data 12/03/2024 Refill [facility] MED[facility] [address] [place] [address] Gavi Aldana DO Chronic bilateral low back pain without sciatica 12/03/2024 Telephone [facility] AD[facility] DENTAL [address] [place], [place] [phone] José Miguel Sy DDS rs same day cx/no show 11/27/2024 9:00 AM EDT Office Visit [facility] [address] [place] [address] Gavi Aldana DO Type 1 diabetes mellitus without complication (CMS/HCC) (Primary Dx); Essential hypertension; Other hyperlipidemia; Nonischemic cardiomyopathy (CMS/HCC); Immune thrombocytopenic purpura (CMS/HCC); Seropositive rheumatoid arthritis (CMS/HCC); Chronic pain of both shoulders; Pulmonary nodules; Multiple thyroid nodules; Chronic cough; Lesion of bone of thoracic spine; Nocturnal headaches; Sleep-disordered breathing; Chronic bilateral low back pain without sciatica; Microscopic hematuria; Healthcare maintenance; Abnormal CT of the chest; Forgetfulness 11/27/2024 Travel 11/26/[address] [address] Gavi Aldana DO Chart Prep 11/16/2024 Patient Outreach [address] [address] Gavi Aldana DO Pre-visit Planning ((Unable to reach for PVP screening, LVM)) 11/12/[address] [address] Gavi Aldana DO Recall Appointment 11/12/2024 Travel from Last 3 Months Immunizations Immunization Administration [...] Answer Date Recorded Patient Health Questionnaire-9 Score 2 11/27/2024 Patient Health Questionnaire-9 Score 2 11/27/2024 Last PHQ-9: Questionnaire Data Not on file 0 11/27/2024 Housing Stability Answer Date Recorded What is [...] Date Recorded Patient Health Questionnaire-2 Score 0 11/27/2024 Comments No Sex and Gender Information Value Date Recorded Sex Assigned at Female 04/05/2022 10:21 AM EDT Legal Sex Female 10:21 AM EDT Gender Identity Female 04/05/2022 10:21 AM EDT Sexual Orientation Choose not to disclose 2021 10:21 AM EDT Last Filed Vital Signs Vital Sign Reading Time Taken Comments Blood Pressure 122/68 11/27/2024 9:10 AM EDT Pulse 75 11/27/2024 9:10 AM EDT Temperature 36.4 C (97.5 F) 11/27/2024 9:10 AM EDT Respiratory Rate 21 11/27/2024 9:10 AM EDT Oxygen Saturation 96% 11/27/2024 9:10 AM EDT Inhaled Oxygen Concentration - - Weight 63.5 kg (140 lb) 11/27/2024 9:10 AM EDT Height 149.9 cm (4' 11 ) 11/27/2024 9:10 AM EDT Body Mass Index 28.28 11/27/2024 9:10 AM EDT Plan of Treatment Health Maintenance Due Date Last Done Comments Diabetes: Foot Exam 1960 Eye Exam 1960 Dental Prophylaxis 09/09/2022 03/10/2022, 0 09/25/2018, 11/16/2017, Additional history exists RSV Patients and Patients Aged 60 years or older (1 - 1-dose 75+ series) 11/24/2023 COVID-19 Vaccine (2023- season) 2024 07/14/2021, 06/23/2021 Diabetes: Urine Protein Screening 09/19/2024 09/20/2023, 10/13/2022, 10/19/2021, Additional history exists Lipid Panel 09/19/2024 09/20/2023, 10/04, 10/19/2021, Additional history exists SDOH Screening 10/23/2024 10/24/2023 Dental Oral Exam 01/02/2025 07/04/2024, 10/2021, 09/25/2018, Additional history exists Influenza Vaccine (#1) 2025 , 06/15/2023, 03/01/2022, Additional history exists Diabetes: Hemoglobin A1C 02/27/2025 025, 08/15/2024, 05/28/2024, Additional history exists Dental X-Ray: Full Mouth 03/11/2025 03/10/2022, 12/04 Alcohol/Substance Use Screening 05/28/2025 05/28/2024 Dental X-Ray: Bitewings 07/05/2025 07/04/19 25, 03/10/2022, 11/16/2017, Additional history exists Depression Screening 11/27/2025 11/27/2024, 11/28/19 Tobacco Screening 11/27/2025 11/27/2024 DTaP/Tdap/Td Vaccines (3 - Td or Tdap) 02/10/2031 02/10/2021, 05/21/2010 Hepatitis B Vaccines Completed 01/15/2015, 08/07/2014, 07/10/2014 Colonoscopy Discontinued 07/28/2021 Colorectal Cancer Screening Discontinued Pneumococcal Vaccine: 50+ Years Completed 01/05/2023, 11/20/2015, 10/15/2014, Additional history exists Zoster Vaccines Completed 07/20/2023, 12/04, 08/07/2014 Hepatitis C Screening Completed 09/04/2024 , 05/09/2024, 06/18/2019 CT Colonography Discontinued FIT DNA/Cologuard Discontinued FIT Discontinued FOBT Discontinued HIB Vaccines Aged Out No longer eligi [...] on patient's age to complete this topic Sigmoidoscopy Discontinued Procedures Procedure Name Priority Date/Time Associated Diagnosis Comments SED RATE BY MODIFIED AUSTINREN Routine 01/25/2025 8:44 AM EDT SLIDE REVIEW Routine 01/25/2025 8:44 AM EDT CBC WITH AUTO DIFFERENTIAL Routine 01/25/2025 8:44 AM EDT C-REACTIVE PROTEIN Routine 01/25/2025 8: 44 AM EDT COMPREHENSIVE METABOLIC PANEL Routine 01/25/2025 8:44 AM EDT C-REACTIVE PROTEIN Routine 12/21/2024 1: 48 PM EDT COMPREHENSIVE METABOLIC PANEL Routine 12/21/2024 1:48 PM EDT SED RATE BY MODIFIED WESTERGREN Routine 12/21/2024 1:48 PM EDT CBC WITH AUTO DIFFERENTIAL Routine 12/21/2024 1:48 PM EDT XR LUMBAR SPINE 2-3 VIEWS Routine 11/27/2024 9:26 AM EDT Chronic bilateral low back pain without sciatica POCT GLYCATED HEMOGLOBIN, TOTAL Routine 11/27/2024 9:17 AM EDT Type 1 diabetes mellitus without complication (CMS/HCC) POCT GLUCOSE Routine 11/27/2024 9:16 AM EDT Type 1 diabetes mellitus without complication (CMS/HCC) HEPATITIS PANEL, GENERAL Routine 09/04/2024 9:02 AM EDT BITEWINGS - 4 RADIOGRAPHIC IMAGES Routine 07/04/2024 [...] Recently Relevant to Health Maintenance Results * Slide Review (01/25/2025 8:44 AM EDT) Slide Review VERIFIED [facility] 01/25/2025 8:44 AM EDT 01/25/2025 2:37 PM EDT us Generic External Data Provider LAB BLOOD ORDERAB LES Final Result [facility] [address] [place] [phone] * (ABNORMAL) CBC auto differential (01/25/2025 8:44 AM EDT) Only the most recent of2 resultswithin the time period is included. White Blood Count 7.8 4.8 - 10.8 X10*3/uL [facility] Red Blood Count 4.83 4.20 - 5.50 X10*6/uL [facility] Hemoglobin 11.1(L) 12.0 - 16.0 g/dl [facility] Hematocrit 36.7(L) 37.0 - 47.0 % [facility] Mean Corpuscular Volume 76.0(L) 80.0 - 98.0 fL [facility] Mean Corpuscular Hemoglobin 23.0(L) 27.0 - 33.0 pg [facility] Mean Corpuscular HGB Conc 30.2(L) 31.0 - 35.0 g/dl [facility] Red Cell Distribution Width 15.5 11.0 - 16.0 % [facility] Platelet Count 113(L) 160 - 400 X10*3/uL [facility] Comment:Confirmed by smear. Neutrophils Percent Auto 66.5 45 - 73 % [facility] Imm Gran Pct Auto 0.3 0.0 - 0.4 % [facility] Lymphocytes Percent Auto 19.5(L) 20 - 40 % [facility] Monocytes Percent Auto 10.6 2 - 11 % [facility] Eosinophils Percent Auto 2.3 0 - 4 % [facility] Basophils Percent Auto 0.8 0 - 2 % [facility] NRBC Pct Auto 0.0 0.0 - 0.2 /100WBC [facility] Neutrophils Absolute Auto 5.2 2.0 - 8.3 x10*3/uL [facility] Imm Gran Abs Auto 0.02 0.00 - 0.03 X10*3/uL [facility] Lymphocytes Absolute Auto 1.5 1.2 - 4.9 X10*3/uL [facility] Monocytes Absolute Auto 0.8 0.1 - 1.2 X10*3/uL [facility] Eosinophils Absolute Auto 0.2 0.0 - 0.4 X10*3/uL [facility] Basophils Absolute Auto 0.1 0.0 - 0.2 X10*3/uL [facility] NRBC Abs Auto 0.000 0.0 - 0.012 X10*3/uL [facility] 01/25/2025 8:44 AM EDT 01/25/2025 2:37 PM EDT Generic External Data Provider LAB BLOOD ORDERAB LES Edited Result - Final Performing Organization Address [facility] Co de Phone Number [facility] [address] [place] [phone] * Sed Rate by Modified Austinren (01/25/2025 8:44 AM EDT) Only the most recent of2 resultswithin the time period is included. [facility] Erythrocyte Sedimentation Rate 16 0 - 20 MM/HR [facility] Comment:Patients with polycy themia and many hemoglobin abnormalitiesmay have depressed sed rates whereas patients with anemiamay have elevated sed rates. 01/25/2025 8:44 AM EDT 01/25/2025 2:37 PM EDT us Generic External Data Provider LAB BLOOD ORDERAB LES Final Result Performing Organization Address [facility] Co de Phone Number [facility] [address] [place] [phone] * C-reactive Protein (01/25/2025 8:44 AM EDT) Only the most recent of2 resultswithin the time period is included. [facility] C Reactive Protein 0.12 < or = 0.50 mg/dL [facility] 01/25/2025 8:44 AM EDT 01/25/2025 2:37 PM EDT us Generic External Data Provider LAB BLOOD ORDERAB LES Final Result [facility] [address] [place] [phone] * (ABNORMAL) Comprehensive Metabolic Panel (01/25/2025 8:44 AM EDT) Only the most recent of2 resultswithin the time period is included. Sodium 142 135 - 145 mmol/L [facility] Potassium 3.7 3.3 - 5.1 mmol/L [facility] Chloride 108 96 - 108 mmol/L [facility] Carbon Dioxide 28 22 - 29 mmol/L [facility] Anion Gap 10(L) 12 - 20 [facility] Urea Nitrogen (BUN) 19(H) 9 - 16 mg/dL [facility] Creatinine, Serum 0.93 0.5 - 1.4 mg/dL [facility] Estimated Glomerular Filt Rate 59 [facility] Comment:Chronic Kidney Disea se: Estimated GFR < 60 mL/min/[id number] Kidney Disease: Estimated GFR < 15 mL/min/1.73m2 Glucose 68 60 - 115 mg/dL [facility] Calcium 9.3 8.4 - 10.2 mg/dL [facility] Bilirubin, Total 0.3 0.0 - 1.0 mg/dL [facility] Aspartate Amino Transferase 27 5 - 31 U/L [facility] Alanine Aminotransferase 11 0 - 31 U/L [facility] Total Protein 6.9 6.5 - 8.0 g/dL [facility] Albumin Level 3.5 3.5 - 5.0 g/dL [facility] Alkaline Phosphatase 121(H) 39 - 117 U/L [facility] 01/25/2025 8:44 AM EDT 01/25/2025 2:37 PM EDT us Generic External Data Provider LAB BLOOD ORDERAB LES Final Result [facility] [address] [place] [phone] * XR Lumbar Spine 2-3 Views (11/27/2024 9:26 AM EDT) Anatomical Region Laterality Modality Spine, L-spine Radiographic Lo ging 11/27/2024 9:26 AM EDT Narrative 11/27/2024 10:35 AM EDT [address] [address] XRay Report Signed Patient: Candi Solomon MR#: [id number] : 1950 Acct:[id number] Age/Sex: 74 / F ADM Date: 11/27/24 [facility]: Gavi Aldana DO Ordering Physician: Gavi Aldana DO Date of Service: 11/27/24 Procedure(s): XR lumbar spine 2-3V Accession Number(s): [id number] cc: Gavi Aldana DO EXAMINATION: XR LUMBOSACRAL SPINE CLINICAL INFORMATION: worsening LBP x 1 mos COMPARISON: None available. TECHNIQUE: Three views of the lumbosacral spine. FINDINGS: There are 5 nonrib-bearing lumbar segments. There is 17 degrees levoscoliosis. There are anterior osteophytes and mild to moderate disc space narrowing most advanced at L4-5. There is facet sclerosis and osteophytes at L4-5 and L5-S1. XR/XR lumbar spine 2-3V IMPRESSION: Degenerative disc disease and facet arthropathy is most advanced at L4-5. Mild levoscoliosis. Electronically signed by: Beto Sarabia MD 11/27/2024 10:32 AM EDT Dictated By: Beto Sarabia MD Signed By: <Electronically signed by Beto Sarabia MD in OV> 11/27/24 1032 DD/ 0926 TD/TT: 11/27/24 1000 Ccie: Procedure Note Donotuseinterpreter, Image - 11/27/2024 [facility] [address] [place] [address] XRay Report Signed Patient: Candi Solomon EMR#: [id number] : 9Acct:[id number] Age/Sex: 74 / FADM Date: 11/27/24 Loc: [facility] Attending Dr: Gavi Aldana DO Ordering Physician: Gavi Aldana DO Date of Service: 11/27/24 Procedure(s): XR lumbar spine 2-3V Accession Number(s): [id number] cc: Gavi Aldana DO EXAMINATION: XR LUMBOSACRAL SPINE CLINICAL INFORMATION: worsening LBP x 1 mos COMPARISON: None available. TECHNIQUE: Three views of the lumbosacral spine. FINDINGS: There are 5 nonrib-bearing lumbar segments. There is 17 degrees levoscoliosis. There are anterior osteophytes and mild to moderate disc space narrowing most advanced at L4-5. There is facet sclerosis and osteophytes at L4-5 and L5-S1. XR/XR lumbar spine 2-3V IMPRESSION: Degenerative disc disease and facet arthropathy is most advanced at L4-5. Mild levoscoliosis. Electronically signed by: Beto Sarabia MD 11/27/2024 10:32 AM EDT Dictated By: Beto Sarabia MD Signed By: <Electronically signed by Beto Sarabia MD in OV> 11/27/24 1032 DD/ 0926 TD/TT: 11/27/24 1000 Ccie: Gavi Aldana DO IMG XR PROCEDURES Final Resu lt * (ABNORMAL) POCT HGB A1C (11/27/2024 9:17 AM EDT) Hemoglobin A1C 8.2(A) 4.0 - 6.0 % QC Media Lot # [id number] Lot# Expiration Date Blood 11/27/2024 9:17 AM EDT Gavi Aldana DO POINT OF CARE TEST ENTER/DIAMANTE T ORDERABLES Final Result * (ABNORMAL) POCT Glucose (11/27/2024 9:16 AM EDT) Pathologist [facility] Glucose Blood, POC 251(A) 60 - 200 mg/dL QC Media Lot # [id number] Lot# Expiration Date Blood Capillary blood specimen / Unknown 11/27/2024 9:16 AM EDT [facility] POINT OF CARE TEST ENTER/DIAMANTE T ORDERABLES Final Result * Hepatitis Panel, General (09/04/2024 9:02 AM EDT) [facility] Hepatitis A IgM Nonreactive Nonreactive [facility] Comment:IgM antibodies to MCCANN V not detected; does not exclude earlyacute or recovered HAV infection. ~Hepatitis B Surface Antibody REACTIVE Nonreactive [facility] Comment:REACTIVE: > 11.99 mI U/mL Hepatitis B Core Antibody Nonreactive Nonreactive [facility] Hepatitis C Antibody Nonreactive Nonreactive [facility] Comment:Antibodies to HCV no t detected; does not exclude early acuteHCV infection. Hepatitis B Surface Ag Negative Negative [facility] 09/04/2024 9:02 AM EDT 09/04/2024 9:02 AM EDT Generic External Data Provider LAB BLOOD ORDERAB LES Final Result [facility] [address] [place] [phone] * Lipid Panel, Standard (09/20/2023 7:27 AM EDT) Pathologist [facility] Triglycerides 96 <150 mg/dL [facility] Comment:Desirable Triglyceri de: less than 150 mg/dLBorderline High Triglyceride 150-199 mg/dLHigh Triglyceride: 200-499 mg/dLVery High Triglyceride: greater than or equal to 5OO mg/dL Cholesterol 139 <200 mg/dL [facility] Comment:Desirable Cholestero l: less than 200 mg/dLBorderline High Cholesterol: 200-239 mg/dLHigh Cholesterol: greater than 239 mg/dL LDL Cholesterol Calculated 69 <100 mg/dL [facility] Comment:Desirable LDL: less than 100 mg/dLNear Optimal/Above Optimal LDL: 110- 129 mg/dLBorderline High LDL: 130-159 mg/dLHigh LDL: 160-189 mg/dLVery High LDL: greater than or equal to 190 mg/dL HDL Cholesterol 51 >40 mg/dL [facility] Comment:Desirable HDL: great er than 40 mg/dL Note: This HDL assay may give artificially low results in patients with liver disease. Blood Venous blood specimen / Unknown 09/20/2023 7:27 AM EDT 09/20/2023 7:27 AM EDT Gavi Aldana DO LAB BLOOD ORDERABLES Final R esult [facility] [address] [place] [phone] * (ABNORMAL) Albumin, Random Urine W/Creatinine (09/20/2023 7:23 AM EDT) Creatinine, Urine 211.65 mg/dL [facility] Microalbumin Urine 817.0 mg/L [facility] Microalbum Creatinine Ratio Ur 386.0(H) <30 ug/mg cr [facility] Comment:Albumin/Creatinine R atio Reference Ranges: Normal: < 30 ug/mg creatinine Microalbuminuria: 30 - 300 ug/mg creatinineClinical Albuminuria: > 300 ug/mg creatinine Urine (Urine, Random) 09/20/2023 7:23 AM EDT 09/20/2023 7:41 AM EDT us Gavi Adlana DO LAB URINE ORDERABLES Final R esult [facility] [address] [place] [phone] * Colonoscopy (07/28/2021 2:52 PM EST) us Historical Provider HEALTH MAINTENANCE Final Result from Last 3 Months or Most Recently Relevant to Health Maintenance Insurance [facility] [employer] OPTIONS (O D-SNP) [facility]ENTAL [facility] Care Teams Furniture Finisher Helper Relationship Specialty Start Date End Date Gavi Aldana DO [address] [place] [phone] PCP - General Family Medicine 06/06/18
--- OUTSIDE RECORDS SUMMARY | 2025-01-29 08:19 | XMS_ITS | Clinical Summary ---
Author Organization [facility] Address [address] [place] [address] Phone Care Team Providers Care Vice President Industrial Relations Name Role Phone FlacoGavi humphreys Primary Care Provider [phone] Allergies No known active allergies Medications metFORMIN [...] SUPPLY MISC) Insulin Glargine (LANTUS SC) Active clotrimazole-beta methasone (LOTRISONE) 1-0.05 % cream Apply topically 2 (two) times a day for 28 days. 30 g 3 5 01/29/20 25 Active Problems Problem Noted Date Diagnosed Date DM type 2 (diabetes mellitus , type 2) (CMS/HCC V24, CMS/HCC V28) 07/28/2011 Hyperlipidemia with target LDL less than 70 07/08 Overview (05/02/2024): IMO update Hypertension 07/28/2011 Non-ischemic cardiomyopathy ([facility] V24, [facility] V28) 07/28/2011 Encounters Date Type Department Care Team Description 12/31/2024 9:15 AM EDT Office Visit Orthopedic Surgery [facility] [address] [phone] Kota De La Torre, DPM Tinea pedis of both feet (Primary Dx); Dermatophytosis of nail; Primary osteoarthritis of both feet; Type II diabetes mellitus with peripheral circulatory disorder ([facility] V24, [facility] V28); Diabetic mononeuropathy simplex ([facility] V24, [facility] V28); Pain in toe of left [...] 02/20/2025 9:00 AM EDT Consult Vascular Surgery [facility] [address] [place] [phone] Tiffanie Holbrook MD [address] [place] [address] 03/04/2025 8:45 AM EDT Office Visit Orthopedic [place] - [place] [phone] Kota De La Torre DPRah [address] [place] [phone] Health Maintenance Due Date Last Done Comments [...] complete this topic Insurance [facility] Member Subscriber Plan / Payer (Ef fective 2014-Present) Name:Candi Sanchez Relation to Subscriber:Self Name:Candi Sanchez Payer ID:[id number] Group ID:[id number] Type:Not on file Address: [place] [address] [address] [phone] Care Teams Vice President Industrial Relations Relationship Specialty Start Date End Date Gavi Aldana DO [address] [place] [address] PCP - General Internal Medicine 10/27/11
--- OUTSIDE RECORDS SUMMARY | 2025-01-29 08:19 | XMS_ITS | Encounter Summary ---
Author Organization [employer] Address [address] [facility] [address] [place] [address] Care Team Providers Care Analytical Strategist Name Role Phone FlacoGavi humphreys Primary Care Provider + [phone] Encounter Details Date Type Department Care Team (Late st Contact Info) Description 09/14/2023 Orders Only [facility] MED[facility]INE [address] [place] [address] Provider, MD [place] Social History Tobacco Use [...] on file documented as of this encounter Procedures Procedure [...] documented as of this encounter Care Teams Analytical Strategist Relationship Specialty Start Date End Date Gavi Aldana DO [address] [place] [address] PCP - General Family Medicine 06/06/18 documented as of this encounter
--- OUTSIDE RECORDS SUMMARY | 2025-01-29 08:19 | XMS_ITS | Encounter Summary ---
Author Organization [employer] Address [address] [facility] [address] [place] [address] Care Team Providers Care Technician'S Helper Name Role Phone Gavi Aldana DO Primary Care Provider + [phone] Reason for Visit * Reason Comments Med Refill Encounter Details Date Type Department Care Team ([facility] st Contact Info) Description 04/04/2024 Refill [facility] [address] [place] [address] Gavi Aldana DO [address] [place], [place] [phone] Social History Tobacco Use Types Packs/Day Years [...] documented as of this encounter Care Teams Technician'S Helper Relationship Specialty Start Date End Date Gavi Aldana DO [address] [place] [phone] PCP - General Family Medicine 06/06/18 documented as of this encounter
--- OUTSIDE RECORDS SUMMARY | 2025-01-29 08:19 | XMS_ITS | Encounter Summary ---
Author Organization [employer] Address [address] [place] [address] [address] [place] [address] Care Team Providers Care Ton Cylinder Inspector Name Role Phone Gavi Aldana DO Primary Care Provider [phone] Encounter Details Date Type Department Care Team ([facility] st Contact Info) Description 07/22/2022 Orders Only [facility] [address] [place] [address] Gavi Duarte LPN Social History Tobacco Use [...] on filedocumented in this encounter Care Teams Ton Cylinder Inspector Relationship Specialty Start Date End Date Gavi Aldana DO [address] [place] [address] PCP - General Family Medicine 06/06/18 documented as of this encounter
--- OUTSIDE RECORDS SUMMARY | 2025-01-29 08:19 | XMS_ITS | Encounter Summary ---
Author Organization [employer] Address [address] [place] [address] [address] [place] [address] Care Team Providers Care Lap Layer Name Role Phone Gavi Aldana Primary Care Provider + [phone] Reason for Visit * Reason Onset Date Comments rs same day cx/no show 12/03/2024 Encounter Details Date Type Department Care Team ([facility] st Contact Info) Description 12/03/2024 Telephone [facility] [address] [place] [address] José Miguel Sy DDS [address] [place] [address] rs same day cx/no show Social History Tobacco Use Types Packs/Day Years [...] encounter Miscellaneous Notes * Telephone Encounter - Dayana Marrufo - 12/03/2024 8:59 AM EDT Patient called in 8:59 to cancel 9am appt due to not feeling well and wants to rs. Patient informedthere is a waiting period prior to rs same day cancel/no show. And that she will receive call from office to reschedule. Patient understood DR documented in this encounter Plan of Treatment Not on file documented as of this encounter Visit Diagnoses Not on filedocumented in this encounter Additional Health Concerns Assessment Noted Time PHQ-9 Depression Total Score: 2 11/28/19 25 9:14 AM EDT documented as of this encounter Care Teams Lap Layer Relationship Specialty Start Date End Date Gavi Aldana DO [address] [place] [id number] PCP - General Family Medicine 06/06/18 documented as of this encounter
--- OUTSIDE RECORDS SUMMARY | 2025-01-29 08:20 | XMS_ITS | Encounter Summary ---
Author Organization [employer] Address [address] [place] [address] Care Team Providers Care Executive Administrative Assistant Name Role Phone Gavi Aldana DO Primary Care Provider + [phone] Encounter Details Date Type Department Care Team (Late st Contact Info) Description 06/22/2022 Orders Only [facility] [address] [place] [address] Tamara Floyd LPN Social History Tobacco Use [...] Blood 204(H) 60 - 115 mg/dL [facility] Comment:METER #: [id number] 5Testing performed in the Endocrinology Department [address] , [address], [place]. 07/06/2022 10:4 4 AM EST 07/06/2022 10:48 AM EST [facility] External Provider LAB BLO OD ORDERABLES Final Result Performing Organization Address City/State/[facility] Co de Phone Number [facility] [address] [place] [address] [phone] documented in this encounter Visit Diagnoses Not on filedocumented in this encounter Care Teams Executive Administrative Assistant Relationship Specialty Start Date End Date Gavi Aldana DO [address] [place] [phone] PCP - General Family Medicine 06/06/18 documented as of this encounter
--- OUTSIDE RECORDS SUMMARY | 2025-01-29 08:20 | XMS_ITS | Encounter Summary ---
Author Organization [employer] Address [address] [facility] [address] [place] [address] Care Team Providers Care White Lead Filterer Name Role Phone Gavi Aldana DO Primary Care Provider + [phone] Encounter Details Date Type Department Care Team ([facility] Contact Info) Description 01/25/2025 Orders Only GENERIC EXTERNAL DATA [...] Procedure Name Priority Date/Time Associated Diagnosis Comments SLIDE REVIEW Routine 01/25/2025 8:44 AM EDT CBC WITH AUTO DIFFERENTIAL Routine 01/25/2025 8:44 AM EDT SED RATE BY MODIFIED WESTERGREN Routine 01/25/2025 8:44 AM EDT C-REACTIVE PROTEIN Routine 01/25/2025 8: 44 AM EDT COMPREHENSIVE METABOLIC PANEL Routine 01/25/2025 8:44 AM EDT documented in this encounter Results * Sed Rate by Modified Westergren (01/25/2025 8:44 AM EDT) Erythrocyte Sedimentation Rate 16 0 - 20 MM/HR [facility] Comment:Patients with polycy themia and many hemoglobin abnormalitiesmay have depressed sed rates whereas patients with anemiamay have elevated sed rates. 01/25/2025 8:44 AM EDT 01/25/2025 2:37 PM EDT us Generic External Data Provider LAB BLOOD ORDERAB LES Final Result [facility] [address] [place] [phone] * Slide Review (01/25/2025 8:44 AM EDT) Slide Review VERIFIED [facility] 01/25/2025 8:44 AM EDT 01/25/2025 2:37 PM EDT us Generic External Data Provider LAB BLOOD ORDERAB LES Final Result [facility] [address] [place] [phone] [phone] * (ABNORMAL) CBC auto differential (01/25/2025 8:44 AM EDT) White Blood Count 7.8 4.8 - 10.8 X10*3/uL [facility] Red Blood Count 4.83 4.20 - 5.50 X10*6/uL [facility] Hemoglobin 11.1(L) 12.0 - 16.0 g/dl [facility] Hematocrit 36.7(L) 37.0 - 47.0 % [facility] Mean Corpuscular Volume 76.0(L) 80.0 - 98.0 fL [facility] Mean Corpuscular Hemoglobin 23.0(L) 27.0 - 33.0 pg [facility] Mean Corpuscular HGB Conc 30.2(L) 31.0 - 35.0 g/dl [facility] Red Cell Distribution Width 15.5 11.0 - 16.0 % [facility] Platelet Count 113(L) 160 - 400 X10*3/uL [facility] Comment:Confirmed by smear. Neutrophils Percent Auto 66.5 45 - 73 % [facility] Imm Gran Pct Auto 0.3 0.0 - 0.4 % [facility] Lymphocytes Percent Auto 19.5(L) 20 - 40 % [facility] Monocytes Percent Auto 10.6 2 - 11 % [facility] Eosinophils Percent Auto 2.3 0 - 4 % [facility] Basophils Percent Auto 0.8 0 - 2 % [facility] NRBC Pct Auto 0.0 0.0 - 0.2 /100WBC [facility] Neutrophils Absolute Auto 5.2 2.0 - 8.3 x10*3/uL [facility] Imm Gran Abs Auto 0.02 0.00 - 0.03 X10*3/uL [facility] Lymphocytes Absolute Auto 1.5 1.2 - 4.9 X10*3/uL [facility] Monocytes Absolute Auto 0.8 0.1 - 1.2 X10*3/uL [facility] Eosinophils Absolute Auto 0.2 0.0 - 0.4 X10*3/uL [facility] Basophils Absolute Auto 0.1 0.0 - 0.2 X10*3/uL [facility] NRBC Abs Auto 0.000 0.0 - 0.012 X10*3/uL [facility] 01/25/2025 8:44 AM EDT 01/25/2025 2:37 PM EDT Generic External Data Provider LAB BLOOD ORDERAB LES Edited Result - Final Performing Organization Address [facility]/ZIP Co de Phone Number [facility] [address] [place] [phone] * C-reactive Protein (01/25/2025 8:44 AM EDT) C Reactive Protein 0.12 < or = 0.50 mg/dL [facility] 01/25/2025 8:44 AM EDT 01/25/2025 2:37 PM EDT Generic External Data Provider LAB BLOOD ORDERAB LES Final Result Performing Organization Address [facility] Co de Phone Number [facility] [address] [place] [phone] * (ABNORMAL) Comprehensive Metabolic Panel (01/25/2025 8:44 AM EDT) Pathologist [facility] Sodium 142 135 - 145 mmol/L [facility] Potassium 3.7 3.3 - 5.1 mmol/L [facility] Chloride 108 96 - 108 mmol/L [facility] Carbon Dioxide 28 22 - 29 mmol/L [facility] Anion Gap 10(L) 12 - 20 [facility] Urea Nitrogen (BUN) 19(H) 9 - 16 mg/dL [facility] Creatinine, Serum 0.93 0.5 - 1.4 mg/dL [facility] Estimated Glomerular Filt Rate 59 [facility] Comment:Chronic Kidney Disea se: Estimated GFR < 60 mL/min/[id number] Kidney Disease: Estimated GFR < 15 mL/min/1.73m2 Glucose 68 60 - 115 mg/dL [facility] Calcium 9.3 8.4 - 10.2 mg/dL [facility] Bilirubin, Total 0.3 0.0 - 1.0 mg/dL [facility] Aspartate Amino Transferase 27 5 - 31 U/L [facility] Alanine Aminotransferase 11 0 - 31 U/L [facility] Total Protein 6.9 6.5 - 8.0 g/dL [facility] Albumin Level 3.5 3.5 - 5.0 g/dL [facility] Alkaline Phosphatase 121(H) 39 - 117 U/L [facility] 01/25/2025 8:44 AM EDT 01/25/2025 2:37 PM EDT us Generic External Data Provider LAB BLOOD ORDERAB LES Final Result [facility] [address] [place] [phone] documented in this encounter Visit Diagnoses Not on filedocumented in this encounter Additional Health Concerns Assessment Noted Time PHQ-9 Depression Total Score: 2 11/28/19 25 9:14 AM EDT documented as of this encounter Care Teams White Lead Filterer Relationship Specialty Start Date End Date Gavi Aldana DO [address] [place] [address] PCP - General Family Medicine 06/06/18 documented as of this encounter
[2025-01-29 08:31] LABS: Glucose, Whole Blood 202 mg/dL (60-115)
== END 2025-01-29 09:09 | disposition home or self-care (01) ==
LOC: HO.ENCR 08:14
PROVIDERS: PCP Family Medicine; Visit Provider Student in an Organized Health Care Education/Training Program
DX: E10.65 Type 1 diabetes mellitus with hyperglycemia (principal); E04.1 Nontoxic single thyroid nodule; Z13.9 Encounter for screening, unspecified
CPT/HCPCS: 95251; 99214

== ENCOUNTER → 2025-01-29 08:13 | Outpatient (BNVA) | payer OTHER, SELFPAY | PROVIDERS: PCP Family Medicine; Visit Provider Student in an Organized Health Care Education/Training Program | DX: E10.65 Type 1 diabetes mellitus with hyperglycemia (principal); E04.1 Nontoxic single thyroid nodule; Z96.49 Presence of other endocrine implants; Z79.899 Other long term (current) drug therapy; R05.3 Chronic cough | CPT/HCPCS: 82947; 83036; 99212 ==

== ENCOUNTER 2025-02-18 09:36 | Outpatient (AMB) | payer OTHER, SELFPAY ==
--- NOTE | 2025-02-18 09:54 | MHC.OFFVIS ---
Intake Visit Reasons: micro hematuria Intake Note: patient presents today for: new pt emily hematuria urology medications: none blood thinners: apixaban today's PVR: 0mls Deaf Interpreter Required: Yes Deaf Interpreter Services: Deaf Interpreter Present Deaf Interpreter Name: Samra Rodrigues Accompanied by: Other Relationship Allergies No Known Allergies Allergy (Verified 02/18/25 10:24) Medication List - Last Reconciled 02/18/25 by BETTY Lyn acetaminophen ER (Arthritis Pain Relief (acetaminophen) ER) 1 tab PO Q8H PRN acetone (urine) test (Ketone Urine Test strips) prn tid for glucose staying over 250 or symptoms of nausea/vomiting apixaban (Eliquis) 5 mg PO BID ascorbic acid (vitamin C) 500 mg PO DAILY baclofen 10 mg PO TID PRN blood sugar diagnostic As directed blood sugar diagnostic (FreeStyle Lite Strips) TEST BLOOD SUGAR FOUR TIMES DAILY blood-glucose meter (FreeStyle Lite Meter kit) As directed blood-glucose sensor (Dexcom G7 Sensor device) As directed every 10 days blood-glucose sensor (Dexcom G7 Sensor device) As directed blood-glucose,ehs teacher,cont (Dexcom G7 Associate Professor Of Music) As directed Breo Ellipta 200-25 mcg/dose (fluticasone furoate-vilanterol) 1 inh inhalation DAILY 30 days NS empagliflozin (Jardiance) 10 mg PO DAILY etanercept (Enbrel SureClick) 50 mg subcut QWEEK famotidine 40 mg PO DAILY ferrous sulfate (FeroSul) 325 mg PO DAILY fluticasone propionate 50 mcg/actuation 2 sprays intranasal DAILY PRN folic acid 1 mg PO DAILY furosemide 40 mg PO DAILY glucagon 3 mg/actuation (Baqsimi) 3 mg intranasal .twice PRN 30 days MDD 6 mg glucose 7.5 - 15 grams PO DAILY glucose (Dex4 Glucose) 16 grams (4 x 4 gram) PO Q15M PRN 30 days MDD 16 tablets ibuprofen 600 mg PO TID insulin aspart U-100 (Novolog FlexPen U-100 Insulin aspart) subcutaneously inject 12 -14 units before breakfast and lunch, 10 units before dinner 90 days MDD 54 units insulin degludec (Tresiba FlexTouch U-200 insulin) 12 units (0.06 mL) subcut DAILY 90 days lancets (TRUEplus Lancets) As directed methotrexate sodium 15 mg (6 x 2.5 mg) PO QWEEK 90 days metoprolol tartrate 100 mg PO BID 30 days omeprazole 40 mg PO BID pen needle, diabetic (UltiCare Pen Needle) As directed pen needle, diabetic (BD Ultra-Fine Thania Pen Needle) USE DIRECTED FOUR TIMES DAILY sacubitril-valsartan 49-51 mg (Entresto) 1 tab PO BID sennosides-docusate sodium 8.6-50 mg (Senokot-S) 2 tab-caps (2 x 8.6-50 mg) PO BEDTIME spironolactone 25 mg PO DAILY HPI Comments Details: Candi is a very pleasant 74-year-old Citizen Of [place]-speaking female patient of Dr. Aldana who was accompanied by Vi her COO at today's office visit. She has a past medical history of diabetes, polyarticular osteoarthritis, nonischemic cardiomyopathy, CHF, coronary artery disease, thrombocytopenia, anemia, GERD, elevated liver enzymes, obesity, vitamin-D deficiency, dyslipidemia, hypertension, and diabetic polyneuropathy. She presents to the office today as a new patient for microscopic hematuria. In discussion with the patient today she reports having followed up with her PCP and microscopic hematuria was noted at which time a ultrasound was ordered and performed and recommendations were made for urology referral for further assessment evaluation. Recent retroperitoneal ultrasound results were reviewed 10/28 essentially normal examination of kidneys and bladder. When asked she denies any previous history of nicotine dependence. 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 We did discussed at length potential causes of microscopic hematuria as well as further interventions and risks and benefits of these interventions. When asked she denies urinary urgency, urinary frequency, incontinence, nocturia, gross/visible hematuria, dysuria, foul smelling urine, changes to urinary stream, flank pain, fever, and or chills. She is happy with her current voiding parameters. In office urinalysis results reviewed with the patient today. Trace microscopic hematuria. 3+ glucosuria. We did discussed importance of management and diabetes for improvement overall health and well-being. We also discussed microscopic hematuria in the setting of anticoagulation. All questions were answered. She otherwise offers no other issues or concerns at this time. [facility] Medical History Polyarticular osteoarthritis Thyroid nodule greater than or equal to 1.5 cm in diameter incidentally noted on imaging study Thyroid nodule Helicobacter pylori gastritis Chronic cough On beta justine at home Nonischemic cardiomyopathy CHF (congestive heart failure) CAD (coronary artery disease) Thrombocytopenia Anemia Chronic GERD Elevated liver enzymes Seropositive rheumatoid arthritis Obesity (BMI 30-39.9) Vitamin D deficiency Dyslipidemia Hypertension 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 Mother No problems noted. Maternal Aunt Diabetes mellitus Social History Household Members: None Housing: Apartment Are you a primary home care provider to a significant other at home: No Do you presently have visiting nurse or other home services: Yes (telephone) Alcohol intake: never Patient Tobacco Use Status: Never used Tobacco service: No Current occupational status: retired Current occupation: rt handed Review of Systems Const All systems reviewed & are unremarkable except as noted in HPI and below Physical Exam Const General: cooperative, comfortable, no acute distress, well developed, alert and awake Orientation/consciousness: patient oriented x3 HEENT Head: Yes normal to inspection, Yes normocephalic and Yes atraumatic Ears: hearing grossly normal bilaterally Eyes General: appearance normal, both eyes and all related structures Neck Neck: Yes normal visual inspection and Yes trachea midline Chest Chest palpation & inspection: normal inspection of the chest Resp Effort & Inspection: normal respiratory effort and able to speak in complete sentences Cardio Rate: regular rate GI Inspection: Yes normal to inspection General: Yes no CVA tenderness Back/Spine/Pelvis Back: no CVA tenderness Skin General skin exam: no rashes or lesions noted Neuro General: patient oriented x3 Extrem General: Yes normal to inspection Psych Appearance: grossly normal and well kempt Mental Status: mental status grossly normal Speech and movement: Normal speech and movement present and Clear speech present Affect: normal affect Attitude: cooperative Thought process: Normal thought process present Thought content: Normal thought content present Results Reviewed Results Reviewed: Ordering Physician: Gavi Aldana DO Date of Service: 10/10/24 Procedure(s): US retroperitoneal comp Accession Number(s): [id number] cc: Gavi Aldana DO~ EXAMINATION: US RETROPERITONEAL COMPLETE (RENAL) CLINICAL INFORMATION: Hematuria.. COMPARISON: 03/06/2024 renal ultrasound. 07/02/2021 abdominal ultrasound. 08/01/15 renal ultrasound. TECHNIQUE: Real-time imaging of the kidneys and bladder. FINDINGS: RIGHT KIDNEY: 11.0 x 4.3 x 5.9 cm (SAG x AP x TRV). The kidney is normal in size, contour, and echogenicity. Renal cortical thickness is normal. No calculi or focal parenchymal lesions. No hydronephrosis. LEFT KIDNEY: 10.6 x 4.0 x 4.0 cm (SAG x AP x TRV). The kidney is normal in size, contour, and echogenicity. Renal cortical thickness is normal. No calculi or focal parenchymal lesions. No hydronephrosis. Tiny focus of fluid abutting the lower pole, doubtful clinical significance. This was seen previously. BLADDER: Well distended and normal. Bilateral ureteral jets are demonstrated. Prevoid bladder volume is 185 mL. Postvoid bladder volume is 17 mL. US/US retroperitoneal comp IMPRESSION: Essentially normal examination of the kidneys and bladder.. Assessment & Plan Assessment & Plan (1) Microscopic hematuria: Code(s): R31.29 - Other microscopic hematuria Category: Medical Plan In office urinalysis results reviewed with the patient today; as noted above; will send for urine cytology. We did discussed potential causes of microscopic hematuria as well as further interventions and risks and benefits of these interventions. All questions were answered. She currently denies any bothersome urinary issues or concerns. She reports be happy with current voiding parameters. Will continue with surveillance monitoring at this time. Recent retroperitoneal ultrasound results reviewed with the patient today; as noted above. Follow-up in 6 months; or sooner with any issues, concerns, and or questions. Orders: Orders Urine Cytology Today R31.29 - Other microscopic hematuria Patient Instructions: The patient had an opportunity to ask questions regarding the treatment plan. All questions were answered. Physical exam, labs, and imaging were discussed and reviewed in detail. As well as risks, benefits, and discussion of treatment choices. No major barriers to understanding were identified. The patient expressed understanding and agreement with the above treatment plan. The patient was made aware they should contact our office by phone for worsening of their current condition, the appearance of new symptoms, or with any questions or concerns. Compliance is encouraged with any medications and follow up testing that is ordered. It is a privilege to be allowed the opportunity to participate in? your urological care.? Again, if you have any questions or concerns If you have any questions or concerns please do not hesitate to contact me. The office is [phone]. This note is constructed using voice recognition software. While every effort has been made to ensure accuracy masonry supervisor errors may have been included. Yours sincerely, BETTY Lyn Coding Level of Care Code New Pt Level 3 (31168) Diagnoses Microscopic hematuria R31.29
--- OUTSIDE RECORDS SUMMARY | 2025-02-18 11:37 | XMS_ITS | Encounter Summary ---
Author Organization [employer] Address [address] [facility] [address] [place] [address] Care Team Providers Care Oncology Physician Assistant Name Role Phone Gavi Aldana DO Primary Care Provider + [phone] Reason for Visit * Reason Comments Med Refill Encounter Details Date Type Department Care Team ([facility] st Contact Info) Description 04/04/2024 Refill [facility] MEDICINE [address] [place] [address] Gavi Aldana DO [address] [place], [place] [phone] Social History Tobacco Use Types Packs/Day Years [...] documented as of this encounter Care Teams Oncology Physician Assistant Relationship Specialty Start Date End Date Gavi Aldana DO [address] [place] [phone] PCP - General Family Medicine 06/06/18 documented as of this encounter
--- OUTSIDE RECORDS SUMMARY | 2025-02-18 11:37 | XMS_ITS | Encounter Summary ---
Author Organization [employer] Address [address] [facility] 7t [place] [address] Care Team Providers Care Rehabilitation Director Name Role Phone Gavi Aldana DO Primary Care Provider + [phone] Encounter Details Date Type Department Care Team (Late st Contact Info) Description 06/22/2022 Orders Only [facility] MEDICINE [address] [place] [address] Tamara Floyd LPN Social History Tobacco Use [...] Whole Blood 204(H) 60 - 115 mg/dL [facility] Comment:METER #: [id number] 5Testing performed in the Endocrinology Department [address] , [address], [place]. 07/06/2022 10:4 4 AM EST 07/06/2022 10:48 AM EST [facility] External Provider LAB BLO OD ORDERABLES Final Result Performing Organization Address City/State/[facility] Co de Phone Number [facility] [address] [place] [address] [phone] documented in this encounter Visit Diagnoses Not on filedocumented in this encounter Care Teams Rehabilitation Director Relationship Specialty Start Date End Date Gavi Aldana DO [address] [place] [phone] PCP - General Family Medicine 06/06/18 documented as of this encounter
--- OUTSIDE RECORDS SUMMARY | 2025-02-18 11:37 | XMS_ITS | Encounter Summary ---
Author Organization [employer] Address [address] [place] [address] [address] [place] [address] Care Team Providers Care Electronics Technician Name Role Phone Gavi Aldana DO Primary Care Provider [phone] Encounter Details Date Type Department Care Team (Latest Contact Info) Description 09/25/2018 Abstract [facility] CONVERSIONS Dental, Provider, DDS Social History [...] on filedocumented in this encounter Care Teams Electronics Technician Relationship Specialty Start Date End Date Gavi Aldana DO [address] [place] [address] PCP - General Family Medicine 06/06/18 documented as of this encounter
--- OUTSIDE RECORDS SUMMARY | 2025-02-18 11:37 | XMS_ITS | Encounter Summary ---
Author Organization [employer] Address [address] [place] [address] [address] [place] [address] Care Team Providers Care Cloth Winder Machine Operator Name Role Phone Gavi Aldana DO Primary Care Provider [phone] Encounter Details Date Type Department Care Team ([facility] st Contact Info) Description 12/14/2022 Orders Only [facility] MED & PEDS [address] [place] [address] Gavi Duarte LPN Social History Tobacco Use [...] on filedocumented in this encounter Care Teams Cloth Winder Machine Operator Relationship Specialty Start Date End Date Gavi Aldana DO [address] [place] [address] PCP - General Family Medicine 06/06/18 documented as of this encounter
--- OUTSIDE RECORDS SUMMARY | 2025-02-18 11:37 | XMS_ITS | Encounter Summary ---
Author Organization [employer] Address [address] [facility] [address] [place] [address] Care Team Providers Care Director Of Acquisitions Name Role Phone FlacoGavi humphreys Primary Care Provider + [phone] Encounter Details Date Type Department Care Team (Late st Contact Info) Description 09/14/[address] [facility] MEDICINE [address] [place] [address] Provider, MD [place] Social History Tobacco Use [...] as of this encounter Care Teams Director Of Acquisitions Relationship Specialty Start Date End Date Gavi Aldana DO [address] [place] [address] PCP - General Family Medicine 06/06/18 documented as of this encounter
--- OUTSIDE RECORDS SUMMARY | 2025-02-18 11:37 | XMS_ITS | Clinical Summary ---
Author Organization [employer] Address [address] [place] [address] 7[address] [place] [address] Care Team Providers Care Museum Informatics Specialist Name Role Phone Gavi Aldana DO Primary Care Provider Allergies Active Allergy Reactions Criticality Noted Date Comments Luis A Inhibitors Cough,Hives 08/10/2010 Medications Skin Protectants, Misc. (Minerin Creme) creamIndicatio ns:Dry skin APPLY TO DRY SKIN 2 TO 3 TIMES PER DAY 454 g 4 3 Active Skin Protectants, Misc. (eucerin) cream apply topically to dry skin 2-3times a day 2 Active Nystop 014542 UNIT/GM powder APPLY TO THE AFFECTED AREA(S) TWICE DAILY 60 g 5 3 Active TRUEplus Glucose On The Go 4 g chewable tablet CHEW 2 TO 4 TABLETS NEEDED FOR LOW BLOOD SUGAR 3 Active Eliquis 5 MG tablet Take 5 mg by mouth 2 times daily. 3 Active atorvastatin (Lipitor) 10 MG tablet Take 10 mg by mouth in the morning. 3 Active digoxin (Lanoxin) 125 MCG tablet Take 125 mcg by mouth in the morning. 3 Active FeroSul 325 (65 Fe) MG tablet Take 1 tablet by mouth in the morning. 3 Active furosemide (Lasix) 20 MG tablet 3 Active FREESTYLE LITE test strip TEST BLOOD SUGAR FOUR TIMES DAILY 3 Active NovoLOG FLEXPEN 100 UNIT/ML pen INJECT 3-6 UNITS SUBCUTANEOUSLY THREE TIMES DAILY 3 Active Lantus SoloStar 100 UNIT/ML pen 3 Active BD Pen Needle Thania U/F 32G X 4 MM misc USE DIRECTED FOUR TIMES DAILY 3 Active TRUEplus Lancets 33G misc TEST BLOOD SUGAR THREE OR FOUR TIMES DAILY 3 Active methotrexate 2.5 MG tablet TAKE 8 TABLETS BY MOUTH ONCE WEEK 3 Active metoprolol tartrate (Lopressor) 100 MG tablet Take 100 mg by mouth with breakfast and with evening meal. 3 Active Entresto 49-51 MG tablet Take 1 tablet by mouth 2 times daily. 3 Active spironolactone (Aldactone) 25 MG tablet Take 25 mg by mouth in the morning. 3 Active UltiCare Short Pen Osseo 31G X 8 MM misc USE DIRECTED FOUR TIMES DAILY 3 Active Breo Ellipta 200-25 MCG/ACT aerosol powder INHALE 1 PUFF BY MOUTH EVERY DAY AT THE SAME TIME 3 Active folic acid (Folvite) 1 MG tablet Take 1,000 mcg by mouth in the morning. 3 Active clotrimazole (Lotrimin) 1 % cream APPLY TO THE AFFECTED AREA(S) AND SURROUNDING AREA(S) TOPICALLY TWICE DAILY IN THE MORNING AND IN THE EVENING 60 g 2 4 Active cholecalcifero l (Vitamin D-3) 50 MCG (2000 UT) capsule Take 1 capsule (50 mcg) by mouth Once per day. 30 capsule 11 4 Active melatonin 5 MG tablet TAKE 1 OR 2 TABLETS BY MOUTH AT BEDTIME NEEDED FOR SLEEP 60 tablet 3 4 Active acetaminophen (Tylenol 8 Hour) 650 MG ER tablet TAKE 1 TABLET BY MOUTH EVERY 8 HOURS NEEDED FOR MILD PAIN 30 tablet 4 Active amitriptyline (Elavil) 10 MG tablet Take 0.5 tablets (5 mg) by mouth at bedtime. 15 tablet 3 4 025 Active glucose 4 g chewable tablet CHEW 2 TO 4 TABLETS BY MOUTH NEEDED FOR LOW BLOOD SUGAR 30 tablet 5 4 Active lidocaine (Lidoderm) 5 % patchIndicatio ns:Acute pain of right shoulder Apply 1 patch topically Once per day. Remove & discard patch after 12 hours. 30 patch 5 Active Diclofenac Sodium 1 % gel Apply 2 g topically if needed in the morning, at noon, in the evening, and at bedtime (pain). 150 g 3 5 Active omeprazole (PriLOSEC) [address] capsule Take 1 capsule (40 mg) by mouth before breakfast and before evening meal. 60 capsule 11 5 Active fexofenadine (Barbara) 180 MG tablet Take 1 tablet (180 mg) by mouth Once per day. 30 tablet 11 5 026 Active benzonatate (Tessalon) 100 MG capsule Take 1 capsule (100 mg) by mouth if needed in the morning, at noon, and at bedtime for cough. Do not crush or chew. 30 capsule 5 Active triamcinolone (Nasacort) 55 MCG/ACT nasal inhaler Administer 2 sprays into each nostril Once per day. 16.5 g 11 5 026 Active baclofen (Lioresal) 10 MG tabletIndicati ons:Acute pain of right shoulder TAKE 1 TABLET BY MOUTH THREE TIMES DAILY NEEDED 42 tablet 5 Active Active Problems Problem Noted Date Diagnosed [...] Encounters Date Type Department Care Team Description 01/29/2025 Orders Only GENERIC EXTERNAL DATA DEPARTMENT Provider, Generic External Data 01/25/2025 Orders Only GENERIC EXTERNAL DATA DEPARTMENT Provider, Generic External Data 12/28/2024 Refill [facility] [address] [place] [address] Gavi Aldana DO Acute pain of right shoulder; Chronic bilateral low back pain without sciatica 12/21/2024 Orders Only GENERIC EXTERNAL DATA DEPARTMENT Provider, Generic External Data 12/03/2024 Refill [facility] [address] [place] [phone] Gavi Aldana DO Chronic bilateral low back pain without sciatica 12/03/2024 Telephone [facility] ADULT D[facility] [address] [place], [place] [phone] José Miguel Sy DDS rs same day cx/no show 11/27/2024 9:00 AM EDT Office Visit [facility] [address] [place] [address] Gavi Aldana DO Type 1 diabetes mellitus [...] the chest; Forgetfulness 11/27/2024 Travel 11/26/2024 Telephone [facility] [address] [place] [address] [phone] Gavi Aldana DO Chart Prep from Last 3 Months Immunizations Immunization Administration [...] your housing situation today? I have luis alyson 10/24/[address] you li [...] older (1 - 1-dose 75+ series) 11/24/2023 Diabetes: Urine Protein Screening 09/19/2024 09/20/2023, 10/13/2022, 10/19/2021, Additional history exists Lipid Panel 09/19/2024 09/20/2023, 10/04, 10/19/2021, Additional history exists SDOH Screening 10/23/2024 10/24/2023 Dental Oral Exam 01/02/2025 07/04/2024, 10/2021, 09/25/2018, Additional history exists COVID-19 Vaccine ( season) 2025 07/14/2021, 06/23/2021 Influenza Vaccine (#1) 2025 , 06/15/2023, 03/01/2022, [...] Associated Diagnosis Comments GLUCOSE, WHOLE BLOOD Routine 01/29/2025 8:27 AM EDT SED RATE BY MODIFIED WESTERGREN Routine 01/25/2025 8:44 AM EDT SLIDE REVIEW [...] Maintenance Results * (ABNORMAL) Glucose, Whole Blood (01/29/2025 8:27 AM EDT) Glucose, Whole Blood 202(H) 60 - 115 mg/dL [facility] Comment:METER #: [id number] 0Testing performed in the Endocrinology Department [address] , [address], [facility]. 01/29/2025 8:27 AM EDT 01/29/2025 8:31 AM EDT us Generic External Data Provider LAB BLOOD ORDERAB LES Final Result [facility] [address] [place] [phone] * Slide Review (01/25/2025 8:44 AM EDT) Slide Review VERIFIED [facility] 01/25/2025 8:44 AM EDT 01/25/2025 2:37 PM EDT us Generic External Data Provider LAB BLOOD ORDERAB LES Final Result [facility] [address] [place] [address] [phone] * (ABNORMAL) CBC auto differential (01/25/2025 8:44 AM EDT) Only the most recent of2 resultswithin the time period is included. White Blood Count 7.8 4.8 - 10.8 X10*3/uL [facility] Red Blood Count 4.83 4.20 - 5.50 X10*6/uL [facility] Hemoglobin 11.1(L) 12.0 - 16.0 g/dl [facility] Hematocrit 36.7(L) 37.0 - 47.0 % [facility] Mean Corpuscular Volume 76.0(L) 80.0 - 98.0 fL [facility] Mean Corpuscular Hemoglobin 23.0(L) 27.0 - 33.0 pg [facility] Mean Corpuscular HGB Conc 30.2(L) 31.0 - 35.0 g/dl [facility] Red Cell Distribution Width 15.5 11.0 - 16.0 % [facility] Platelet Count 113(L) 160 - 400 X10*3/uL [facility] Comment:Confirmed by smear. Neutrophils Percent Auto 66.5 45 - 73 % [facility] Imm Gran Pct Auto 0.3 0.0 - 0.4 % [facility] Lymphocytes Percent Auto 19.5(L) 20 - 40 % [facility] Monocytes Percent Auto 10.6 2 - 11 % [facility] Eosinophils Percent Auto 2.3 0 - 4 % [facility] Basophils Percent Auto 0.8 0 - 2 % [facility] NRBC Pct Auto 0.0 0.0 - 0.2 /100WBC [facility] Neutrophils Absolute Auto 5.2 2.0 - 8.3 x10*3/uL [facility] Imm Gran Abs Auto 0.02 0.00 - 0.03 X10*3/uL [facility] Lymphocytes Absolute Auto 1.5 1.2 - 4.9 X10*3/uL [facility] Monocytes Absolute Auto 0.8 0.1 - 1.2 X10*3/uL [facility] Eosinophils Absolute Auto 0.2 0.0 - 0.4 X10*3/uL [facility] Basophils Absolute Auto 0.1 0.0 - 0.2 X10*3/uL [facility] NRBC Abs Auto 0.000 0.0 - 0.012 X10*3/uL [facility] 01/25/2025 8:44 AM EDT 01/25/2025 2:37 PM EDT us Generic External Data Provider LAB BLOOD ORDERAB LES Edited Result - Final Performing Organization Address [facility] de Phone Number [facility] [address] [place] [phone] * Sed Rate by Modified Thony (01/25/2025 8:44 AM EDT) Only the most recent of2 resultswithin the time period is included. Erythrocyte Sedimentation Rate 16 0 - 20 MM/HR [facility] Comment:Patients with polycy themia and many hemoglobin abnormalitiesmay have depressed sed rates whereas patients with anemiamay have elevated sed rates. 01/25/2025 8:44 AM EDT 01/25/2025 2:37 PM EDT us Generic External Data Provider LAB BLOOD ORDERAB LES Final Result Performing Organization Address [facility] Co de Phone Number [facility] [address] [place] [address] [phone] * C-reactive Protein (01/25/2025 8:44 AM EDT) Only the most recent of2 resultswithin the time period is included. C Reactive Protein 0.12 < or = 0.50 mg/dL [facility] 01/25/2025 8:44 AM EDT 01/25/2025 2:37 PM EDT us Generic External Data Provider LAB BLOOD ORDERAB LES Final Result [facility] [address] [place] [phone] * (ABNORMAL) Comprehensive Metabolic Panel (01/25/2025 8:44 AM EDT) Only the most recent of2 resultswithin the time period is included. Pathologist [facility] Sodium 142 135 - 145 mmol/L [facility] Potassium 3.7 3.3 - 5.1 mmol/L [facility] Chloride 108 96 - 108 mmol/L [facility] Carbon Dioxide 28 22 - 29 mmol/L [facility] Anion Gap 10(L) 12 - 20 [facility] Urea Nitrogen (BUN) 19(H) 9 - 16 mg/dL [facility] Creatinine, Serum 0.93 0.5 - 1.4 mg/dL [facility] Estimated Glomerular Filt Rate 59 [facility] Comment:Chronic Kidney Disea se: Estimated GFR < 60 mL/min/1.18v0Vxiaud Kidney Disease: Estimated GFR < 15 mL/min/1.73m2 Glucose 68 60 - 115 mg/dL [facility] Calcium 9.3 8.4 - 10.2 mg/dL [facility] Bilirubin, Total 0.3 0.0 - 1.0 mg/dL [facility] Aspartate Amino Transferase 27 5 - 31 U/L [facility] Alanine Aminotransferase 11 0 - 31 U/L [facility] Total Protein 6.9 6.5 - 8.0 g/dL [facility] Albumin Level 3.5 3.5 - 5.0 g/dL [facility] Alkaline Phosphatase 121(H) 39 - 117 U/L [facility] 01/25/2025 8:44 AM EDT 01/25/2025 2:37 PM EDT us Generic External Data Provider LAB BLOOD ORDERAB LES Final Result Performing Organization Address City/State/[facility] Co de Phone Number [facility] [address] [place] [phone] * XR Lumbar Spine 2-3 Views (11/27/2024 9:26 AM EDT) Anatomical Region Laterality Modality Spine, L-spine Radiographic Lo ging 11/27/2024 9:26 AM EDT Narrative 11/27/2024 10:35 AM EDT [address] [address] XRay Report Signed Patient: Candi Solomon MR#: [id number] : 1950 Acct:[id number] Age/Sex: 74 / F ADM Date: 11/27/24 Loc: HO.HHCX Attending Dr: Gavi Aldana DO Ordering Physician: Gavi Aldana DO Date of Service: 11/27/24 Procedure(s): XR lumbar spine 2-3V Accession Number(s): [id number] cc: Gavi Aldana DO EXAMINATION: XR LUMBOSACRAL [...] Beto Sarabia MD 11/27/2024 10:32 AM EDT RP Dictated By: Beto Sarabia MD Signed By: <Electronically signed by Beto Sarabia MD in OV> 11/27/24 1032 DD/ 0926 TD/TT: 11/27/24 1000 Concrete Tester: Procedure Note Donotuseinterpreter, Image - 11/27/[address] [address] XRay Report Signed Patient: Candi Solomon EMR#: [id number] : 9Acct:[id number] Age/Sex: 74 / FADM Date: 11/27/24 Loc: .HHX Attending Dr: Gavi Aldana DO Ordering Physician: Gavi Aldana DO Date of Service: 11/27/24 Procedure(s): XR lumbar spine 2-3V Accession Number(s): [id number] cc: Gavi Aldana DO EXAMINATION: XR LUMBOSACRAL [...] Beto Sarabia MD 11/27/2024 10:32 AM EDT RP Dictated By: Beto Sarabia MD Signed By: <Electronically signed by Beto Sarabia MD in OV> 11/27/24 1032 DD/ 0926 TD/TT: 11/27/24 1000 Concrete Tester: Gavi Jovan DO IMG XR PROCEDURES Final Resu lt * (ABNORMAL) POCT HGB A1C (11/27/2024 9:17 AM EDT) Pathologist [facility] Hemoglobin A1C 8.2(A) 4.0 - 6.0 % QC Media Lot # [id number] Lot# Expiration Date Blood 11/27/2024 9:17 AM EDT Gavi Jovan DO POINT OF CARE TEST ENTER/DIAMANTE T ORDERABLES Final Result * (ABNORMAL) POCT Glucose (11/27/2024 9:16 AM EDT) [facility] Glucose Blood, POC 251(A) 60 - 200 mg/dL QC Media Lot # [id number] Lot# Expiration Date Blood Capillary blood specimen / Unknown 11/27/2024 9:16 AM EDT Gavi Aldana DO POINT OF CARE TEST ENTER/DIAMANTE T ORDERABLES Final Result * Hepatitis Panel, General (09/04/2024 9:02 AM EDT) [facility] Hepatitis A IgM Nonreactive Nonreactive [facility] Comment:IgM antibodies to MCCANN V not detected; does not exclude earlyacute or recovered HAV infection. ~Hepatitis B Surface Antibody REACTIVE Nonreactive [facility] Comment:REACTIVE: > 11.99 mI U/mL Hepatitis B Core Antibody Nonreactive Nonreactive [facility] Hepatitis C Antibody Nonreactive Nonreactive [facility] Comment:Antibodies to HCV no t detected; does not exclude early acuteHCV infection. Hepatitis B Surface Ag Negative Negative [facility] 09/04/2024 9:02 AM EDT 09/04/2024 9:02 AM EDT Generic External Data Provider LAB BLOOD ORDERAB LES Final Result [facility] [address] [place] [phone] [phone] * Lipid Panel, Standard (09/20/2023 7:27 AM EDT) Triglycerides 96 <150 mg/dL [facility] Comment:Desirable Triglyceri de: less than 150 mg/dLBorderline High Triglyceride 150-199 mg/dLHigh Triglyceride: 200-499 mg/dLVery High Triglyceride: greater than or equal to 5OO mg/dL Cholesterol 139 <200 mg/dL [facility] Comment:Desirable Cholestero l: less than 200 mg/dLBorderline High Cholesterol: 200-239 mg/dLHigh Cholesterol: greater than 239 mg/dL LDL Cholesterol Calculated 69 <100 mg/dL [facility] Comment:Desirable LDL: less than 100 mg/dLNear Optimal/Above Optimal LDL: 110- 129 mg/dLBorderline High LDL: 130-159 mg/dLHigh LDL: 160-189 mg/dLVery High LDL: greater than or equal to 190 mg/dL HDL Cholesterol 51 >40 mg/dL [facility] Comment:Desirable HDL: great er than 40 mg/dL Note: This HDL assay may give artificially low results in patients with liver disease. Blood Venous blood specimen / Unknown 09/20/2023 7:27 AM EDT 09/20/2023 7:27 AM EDT us Gavi Aldana DO LAB BLOOD ORDERABLES Final R esult [facility] [address] [place] [phone] [phone] * (ABNORMAL) Albumin, Random Urine W/Creatinine (09/20/2023 7:23 AM EDT) Creatinine, Urine 211.65 mg/dL [facility] Microalbumin Urine 817.0 mg/L [facility] Microalbum Creatinine Ratio Ur 386.0(H) <30 ug/mg cr [facility] Comment:Albumin/Creatinine R atio Reference Ranges: Normal: < 30 ug/mg creatinine Microalbuminuria: 30 - 300 ug/mg creatinineClinical Albuminuria: > 300 ug/mg creatinine Urine (Urine, Random) 09/20/2023 7:23 AM EDT 09/20/2023 7:41 AM EDT us Gavi Aldana DO LAB URINE ORDERABLES Final R esult [facility] [address] [place] [phone] [phone] * Colonoscopy (07/28/2021 2:52 PM EST) us Historical Provider MD HEALTH MAINTENANCE Final Result from Last 3 Months or Most Recently Relevant to Health Maintenance Insurance [facility] RETIREMENT OPTIONS (HMO D-SNP) [place]AMER [id number] [facility] [address] [place] [id number] [address] [place] [phone] Care Teams Museum Informatics Specialist Relationship Specialty Start Date End Date Gavi Aldana DO [address] [place] [phone] PCP - General Family Medicine 06/06/18
--- OUTSIDE RECORDS SUMMARY | 2025-02-18 11:37 | XMS_ITS | Encounter Summary ---
Author Organization [employer] Address [address] [place] [address] [address] [place] [address] Care Team Providers Care Credit Union Manager Name Role Phone Gavi Aldana DO Primary Care Provider [phone]- [phone] Reason for Visit * Reason Comments Med Refill Encounter Details Date Type Department Care Team (Late st Contact Info) Description 10/11/2022 Refill [facility] MED[facility] [address] [place] [address] Gavi Aldana DO [address] [place] [address] Other chronic pain Social History Tobacco Use [...] pain documented in this encounter Care Teams Credit Union Manager Relationship Specialty Start Date End Date Gavi Aldana DO [address] [place] [address] PCP - General Family Medicine 06/06/18 documented as of this encounter
--- OUTSIDE RECORDS SUMMARY | 2025-02-18 11:37 | XMS_ITS | Clinical Summary ---
Author Organization [address] [facility] Address [address] [place] [address] Phone Care Team Providers Care Division Sales Manager Name Role Phone FlacoGavi humphreys Primary Care Provider [phone]- [phone] Allergies No known active allergies Medications metFORMIN [...] Non-ischemic cardiomyopathy ([facility] V24, [facility] V28) 07/28/2011 Encounters Date Type Department Care Team Description 12/31/2024 9:15 AM EDT Office Visit Orthopedic Surgery [facility] [address] [facility] [address] [place] [address] Kota De La Torre, DPM Tinea pedis of both feet (Primary Dx); Dermatophytosis of nail; Primary osteoarthritis of both feet; Type II diabetes mellitus with peripheral circulatory disorder ([facility] V24, [facility] V28); Diabetic mononeuropathy simplex ([facility] V24, [facility] V28); Pain in toe of left [...] 02/20/2025 9:00 AM EDT Consult Vascular Surgery [facility] [address] [facility] [address] [place] [phone] Tiffanie Holbrook MD [address] [place] [phone] 03/04/2025 8:45 AM EDT Office Visit Orthopedic Surgery [facility] [address] [facility] [address] [place] [phone] Kota De La Torre, DPM 175 [facility] [address] [place] [address] Health Maintenance Due Date Last Done Comments [...] patient's age to complete this topic Insurance [facility] Member Subscriber Plan / Payer (Ef fective 2014-Present) Name:Candi Sanchez Relation to Subscriber:Self Name:Candi Sanchez Payer ID:[id number] Group ID:[id number] Type:Not on file Address: [place] [address] [place]AM[place] [id number] Care Teams Division Sales Manager Relationship Specialty Start Date End Date Gavi Aldana DO [address] [place] [address] PCP - General Internal Medicine 10/27/11
--- OUTSIDE RECORDS SUMMARY | 2025-02-18 11:37 | XMS_ITS | Encounter Summary ---
Author Organization [employer] Address [address] [place] [address] 7[address] [place] [address] Care Team Providers Care Paint Line Production Supervisor Name Role Phone Gavi Aldana DO Primary Care Provider [phone] Encounter Details Date Type Department Care Team (Latest Contact Info) Description 03/10/2022 Abstract [facility] CONVERSIONS Dental, Provider, DDS Social History Tobacco [...] on filedocumented in this encounter Care Teams Paint Line Production Supervisor Relationship Specialty Start Date End Date Gavi Aldana DO [address] [place] [address] PCP - General Family Medicine 06/06/18 documented as of this encounter
--- OUTSIDE RECORDS SUMMARY | 2025-02-18 11:37 | XMS_ITS | Encounter Summary ---
Author Organization [employer] Address [address] [place] [address] 7t [place] [address] Care Team Providers Care Sales And Customer Relations Rep Name Role Phone Gavi Aldana DO Primary Care Provider [phone]- [phone] Encounter Details Date Type Department Care Team ([facility] st Contact Info) Description 07/22/2022 Orders Only [facility] & [facility]S [address] [place] [address] Gavi Duarte LPN Social History Tobacco Use [...] on filedocumented in this encounter Care Teams Sales And Customer Relations Rep Relationship Specialty Start Date End Date Gavi Aldana DO [address] [place] [address] PCP - General Family Medicine 06/06/18 documented as of this encounter
--- OUTSIDE RECORDS SUMMARY | 2025-02-18 11:37 | XMS_ITS | Encounter Summary ---
Author Organization [employer] Address [address] [place] [address] 7[address] [place] [address] Care Team Providers Care Vocational Training Teacher Name Role Phone Gavi Aldana Primary Care Provider + [phone] Reason for Visit * Reason Onset Date Comments rs same day cx/no show 12/03/2024 Encounter Details Date Type Department Care Team ([facility] st Contact Info) Description 12/03/2024 Telephone [facility] ADULT DENTAL [address] [place] [address] José Miguel Sy DDS [address] [place] [address] rs same day cx/no show Social History [...] documented as of this encounter Care Teams Vocational Training Teacher Relationship Specialty Start Date End Date Gavi Aldana DO [address] [place] [address] PCP - General Family Medicine 06/06/18 documented as of this encounter
== END 2025-02-18 10:22 | disposition home or self-care (01) ==
LOC: HO.HUSH 09:36
PROVIDERS: PCP Family Medicine; Visit Provider Nurse Practitioner Family
DX: R31.29 Other microscopic hematuria (principal); Z13.9 Encounter for screening, unspecified
CPT/HCPCS: 99203

== ENCOUNTER 2025-02-18 09:36 | Outpatient (REF) | payer OTHER, SELFPAY | END 2025-02-18 09:37 | disposition home or self-care (01) | LOC: HO.LAB 09:36 | PROVIDERS: PCP Family Medicine; Visit Provider Nurse Practitioner Family | DX: R31.29 Other microscopic hematuria (principal); Z79.01 Long term (current) use of anticoagulants; Z79.899 Other long term (current) drug therapy | CPT/HCPCS: 51798; 81003; 88112; 99202 ==

== ENCOUNTER 2025-03-13 07:43 | Outpatient (AMB) | payer OTHER, SELFPAY ==
--- OUTSIDE RECORDS SUMMARY | 2025-03-13 07:47 | XMS_ITS | Encounter Summary ---
Author Organization [employer] Address [address] [place] [address] 7[address] [place] [address] Care Team Providers Care Director Of Speech Pathology Name Role Phone Gavi Aldana Primary Care Provider + [phone] Reason for Visit * Reason Onset Date Comments rs same day cx/no show 12/03/2024 Encounter Details Date Type Department Care Team ([facility] st Contact Info) Description 12/03/2024 Telephone [facility] ADULT DENTAL [address] [place] [address] José Miguel Sy DDS [address] [place] [address] rs same day cx/no show Social History [...] Care Team (Late st Contact Info) Description 03/29/2025 8:00 AM EDT Office Visit [facility] ADULT DENT[facility] [address] [place] [address] José Miguel Sy DDS [address] [place] [address] documented as of this encounter Visit Diagnoses Not on filedocumented in this encounter Additional Health Concerns Assessment Noted Time PHQ-9 Depression Total Score: 2 11/28/19 25 9:14 AM EDT documented as of this encounter Care Teams Director Of Speech Pathology Relationship Specialty Start Date End Date Gavi Aldana DO [address] [place] [address] PCP - General Family Medicine 06/06/18 documented as of this encounter
--- OUTSIDE RECORDS SUMMARY | 2025-03-13 07:47 | XMS_ITS | Encounter Summary ---
Author Organization [employer] Address [address] [facility] 7t [place] [address] Care Team Providers Care Chairman & Ceo Name Role Phone Gavi Aldana DO Primary Care Provider + [phone] Reason for Visit * Reason Comments Med Refill Encounter Details Date Type Department Care Team ([facility] st Contact Info) Description 04/04/2024 Refill [facility] MEDICINE [address] [place] [address] Gvai Aldana DO [address] [place], [place] [phone] Social History Tobacco Use Types Packs/Day Years [...] Description 03/29/2025 8:00 AM EDT Office Visit [facility] ADULT DENTAL [address] [place] [address] José Miguel Sy DDS [address] [place] [address] documented as of this encounter Visit Diagnoses Not on filedocumented in this encounter Additional Health Concerns Assessment Noted Time PHQ-9 Depression Total Score: 1 06/15/19 24 10:29 AM EST documented as of this encounter Care Teams Chairman & Ceo Relationship Specialty Start Date End Date Gavi Aldana DO [address] [place] [address] PCP - General Family Medicine 06/06/18 documented as of this encounter
--- OUTSIDE RECORDS SUMMARY | 2025-03-13 07:47 | XMS_ITS | Encounter Summary ---
Author Organization [employer] Address 75 [facility] 7t [place] [address] Care Team Providers Care Montessori Toddler Teacher Name Role Phone FlacoGavi humphreys Primary Care Provider + [phone] Encounter Details Date Type Department Care Team (Late st Contact Info) Description 09/14/2023 Orders Only [facility] MEDICINE [address] [place] [address] Provider, MD Mel[place] Social History Tobacco Use [...] Description 03/29/2025 8:00 AM EDT Office Visit [facility] ADULT DENTAL [address] [place], [place] [phone] José Miguel Sy DDS [address] [place], [place] [phone] documented as of this encounter Procedures Procedure [...] documented as of this encounter Care Teams Montessori Toddler Teacher Relationship Specialty Start Date End Date Gavi Aldana DO [address] [place] [address] PCP - General Family Medicine 06/06/18 documented as of this encounter
--- OUTSIDE RECORDS SUMMARY | 2025-03-13 07:47 | XMS_ITS | Encounter Summary ---
Author Organization [employer] Address [address] [place] [address] [address] [address] Care Team Providers Care Student Teaching Coordinator Name Role Phone Gavi Aldana DO Primary Care Provider [phone] Encounter Details Date Type Department Care Team (Late Contact Info) Description 07/22/2022 Orders Only [facility] CHC MED & PEDS [address] [place] [address] Gavi Duarte LPN Social History Tobacco Use [...] 8:00 AM EDT Office Visit [facility] ADULT DENTAL [address] [place] [address] José Miguel Sy DDS [address] [place] [address] documented as of this encounter Visit Diagnoses Not on filedocumented in this encounter Care Teams Student Teaching Coordinator Relationship Specialty Start Date End Date Gavi Aldana DO [address] [place] [address] PCP - General Family Medicine 06/06/18 documented as of this encounter
--- OUTSIDE RECORDS SUMMARY | 2025-03-13 07:47 | XMS_ITS | Encounter Summary ---
Author Organization [employer] [facility] Address [address] [place] [address] [address] [place] [address] Care Team Providers Care Grit Removal Operator Name Role Phone Gavi Aldana DO Primary Care Provider [phone] Encounter Details Date Type Department Care Team (Latest Contact Info) Description 03/10/2022 Abstract [facility] CONVERSIONS Dental, Provider, DDS Social [...] Description 03/29/2025 8:00 AM EDT Office Visit [facility] ADULT DENTAL [address] [place] [address] José Miguel Sy DDS [address] [place] [address] documented as of this encounter Visit Diagnoses Not on filedocumented in this encounter Care Teams Grit Removal Operator Relationship Specialty Start Date End Date Gavi Aldana DO [address] [place] [address] PCP - General Family Medicine 06/06/18 documented as of this encounter
--- OUTSIDE RECORDS SUMMARY | 2025-03-13 07:47 | XMS_ITS | Clinical Summary ---
Author Organization [employer] Address [address] [place] [address] 7t [place] [address] Care Team Providers Care Manager Gas Name Role Phone Gavi Aldana DO Primary Care Provider [phone] Allergies Active Allergy Reactions Criticality Noted Date Comments Luis A Inhibitors Cough,Hives 08/10/2010 Medications Skin Protectants, Misc. (Minerin Creme) creamIndicatio ns:Dry skin APPLY TO DRY SKIN 2 TO 3 TIMES PER DAY 454 g 4 3 Active Skin Protectants, Misc. (eucerin) cream apply topically to dry skin 2-3times a day 2 Active Nystop 504580 UNIT/GM powder APPLY TO THE AFFECTED AREA(S) [...] the morning. 3 Active UltiCare Short Pen [place] 31G X 8 MM misc USE DIRECTED [...] each nostril Once per day. 16.5 g 5 026 Active baclofen (Lioresal) 10 MG [...] Essential hypertension 09/08/2022 Hyperlipidemia 09/08/2022 Nonischemic cardiomyopathy (CMS/HCC) 09/08/2022 Seropositive rheumatoid arthritis (CMS/HCC) 10/2022 Chronic left shoulder pain 09/08/2022 Chronic right shoulder pain 09/08/2022 Immune thrombocytopenic purpura (CMS/HCC) 2022 Eczema 09/08/2022 AICD (automatic cardioverter/defibrillator) pres ent 09/08/2022 Chronic systolic heart failure 09/08/2022 Paroxysmal atrial flutter (CMS/HCC) 09/08/2022 Chronic gastroesophageal reflux disease 09/09/19 23 [...] Encounters Date Type Department Care Team Description 02/22/2025 Telephone [facility] ADULT DENTAL [address] [place] [address] José Miguel Sy DDS rs cancelled appt 02/18/2025 Orders Only [facility] Provider, Generic External Data 01/29/2025 Orders Only [facility] EX[facility] DEPARTMENT Provider, Generic External Data 01/25/2025 Orders Only [facility] EXTERNAL DATA DEPARTMENT Provider, Generic External Data 12/28/2024 Refill [facility] CHC MED & PEDS [address] [place] [address] Gavi Aldana DO Acute pain of right shoulder; Chronic bilateral low back pain without sciatica 12/21/2024 Orders Only [facility] EXTERNAL DATA DEPARTMENT Provider, Generic External Data from Last 3 Months Immunizations Immunization Administration [...] 11/27/2024 9:10 AM EDT Plan of Treatment Upcoming Encounters Date Type Department Care Team (Late st Contact Info) Description 03/29/2025 8:00 AM EDT Office Visit [facility] ADULT DENTAL [address] [place] [address] José Miguel Sy, ROSCOES [address] [place] [address] Health Maintenance Due Date Last Done Comments [...] 10/2021, 09/25/2018, Additional history exists COVID-19 Vaccine (3 - 2024- season) 2025 07/14/2021, 06/23/2021 Influenza Vaccine (#1) [...] Procedure Name Priority Date/Time Associated Diagnosis Comments CYTOPATH-CELL ENHANCED Routine 02/18/2025 4:53 PM EDT GLUCOSE, WHOLE BLOOD Routine 01/29/2025 8:27 AM [...] AUTO DIFFERENTIAL Routine 12/21/2024 1:48 PM EDT POCT GLYCATED HEMOGLOBIN, TOTAL Routine 11/27/2024 9:17 [...] complication, with long-term current use of insulin ([facility]/HCC) ALBUMIN, RANDOM URINE W/CREATININE Routine 09/20/2023 7:23 AM EDT Type 2 diabetes mellitus without complication, with long-term current use of insulin (CMS/HCC) PROPHYLAXIS - ADULT Routine 03/10/2022 1 2:00 AM EDT INTRAORAL - COMPLETE SERIES OF RADIOGRAPHIC IMAGES Routine 03/10/2022 12:00 AM EDT HM COLONOSCOPY Routine 07/28/2021 2:52 PM EST from Last 3 Months or Most Recently Relevant to Health Maintenance Results * Cytopath-cell enhanced (02/18/2025 4:53 PM EDT) 02/18/2025 4:53 PM EDT 02/20/2025 11:20 AM EDT [facility] - 02/24/2025 3:47 PM EDT ----- ------- Name: Daniel MuellerCandi parmar Age/Sex: 74/F : 1950 Unit#: [id number] Attend Dr: Nallely Baca [facility] Re02/18/25 Status: DEP REF Location: .LAB Disch: ----- ------- SPEC : [id number] RECD: 02/20/25 STATUS: PABLO PEREZ NUM: [id number] MILAN: 02/18/[address]: Nallely Baca [facility] ENTERED: 02/20/25 SP TYPE: Cytology OTHR DR: Gavi Aldana DO ORDERED: Cyto-enhanced Diagnosis Urine, cytology: Negative for high-grade urothelial carcinoma. COMMENT: Review of the cytology preparation demonstrates a mildly cellular specimen composed of squames and urothelial cells. Red blood cells are noted. There is no significant atypia seen. Clinical History Other microscopic hematuria Material Received Urine Gross Description Received is 40 cc of clear yellow fluid from which a ThinPrep slide is prepared. IHC S/NG Disclaimer NOTE: Unless otherwise stated, all tissue is formalin-fixed and paraffin-embedded. Some or all of the immunohistochemical tests reported herein may have been developed and their performance characteristics determined by [facility]. They have not been cleared or approved by the U.S. Food and Drug Administration (FDA). However, the FDA has determined that such clearance or approval is not necessary. This laboratory is certified under the Clinical Laboratory Improvement Amendments of 1988 (CLIA) as qualified to perform high complexity clinical laboratory testing. Copies To: Gavi Aldana DO [address] [address] Nallely Baca [facility] [address] [place] [address] [address] [place] [address] [email or web address] CONTINUED ON NEXT PAGE ----- ------- Name: Daniel MuellerCandi Campbell Age/Sex: 74/F : 1950 Unit#: [id number] Attend Dr: Nallely Baca [facility] Re02/18/25 Status: DEP REF Location: .LAB Disch: ----- ------- SPEC : [id number] RECD: 02/20/25-1119 STATUS: PABLO PEREZ NUM: [id number] MILAN: 02/18/25 [facility] DR: Nallely Baca [facility] ENTERED: 02/20/25-1340 SP TYPE: Cytology OTHR DR: Gavi Aldana DO ORDERED: Cyto-enhanced ----- ------- Signed (signature on file) Arlin Ogden MD 02/24/25 1547 ----- ------- END OF REPORT us Generic External Data Provider LAB CYTOLOGY ORDE WADE Final Result [facility] [address] [place] [phone] * (ABNORMAL) Glucose, Whole Blood (01/29/2025 8:27 AM EDT) Glucose, Whole Blood 202(H) 60 - 115 mg/dL [facility] Comment:METER #: [id number] 0Testing performed in the Endocrinology Department [address] , [address], [facility]. 01/29/2025 8:27 AM EDT 01/29/2025 8:31 AM EDT Generic External Data Provider LAB BLOOD ORDERAB LES Final Result Performing Organization Address [facility]/ZIP Co de Phone Number [facility] [address] [place] [phone] * Slide Review (01/25/2025 8:44 AM EDT) Pathologist [facility] Slide Review VERIFIED [facility] 01/25/2025 8:44 AM EDT 01/25/2025 2:37 PM EDT 5 CUPS and some sugar External Data Provider LAB BLOOD ORDERAB LES Final Result Performing Organization Address [facility] Co de Phone Number [facility] [address] [place] [phone] * (ABNORMAL) CBC auto differential (01/25/2025 8:44 AM EDT) Only the most recent of2 resultswithin the time period is included. White Blood Count 7.8 4.8 - 10.8 X10*3/uL [facility] Red Blood Count 4.83 4.20 - 5.50 X10*6/uL [facility] Hemoglobin 11.1(L) 12.0 - 16.0 g/dl [facility] Hematocrit 36.7(L) 37.0 - 47.0 % [facility] Mean Corpuscular Volume 76.0(L) 80.0 - 98.0 fL [facility] Mean Corpuscular Hemoglobin 23.0(L) 27.0 - 33.0 pg [facility] Mean Corpuscular HGB Conc 30.2(L) 31.0 - 35.0 g/dl [facility] Red Cell Distribution Width 15.5 11.0 - 16.0 % [facility] Platelet Count 113(L) 160 - 400 X10*3/uL [facility] Comment:Confirmed by smear. Neutrophils Percent Auto 66.5 45 - 73 % [facility] Imm Gran Pct Auto 0.3 0.0 - 0.4 % [facility] Lymphocytes Percent Auto 19.5(L) 20 - 40 % [facility] Monocytes Percent Auto 10.6 2 - 11 % [facility] Eosinophils Percent Auto 2.3 0 - 4 % [facility] Basophils Percent Auto 0.8 0 - 2 % [facility] NRBC Pct Auto 0.0 0.0 - 0.2 /100WBC [facility] Neutrophils Absolute Auto 5.2 2.0 - 8.3 x10*3/uL [facility] Imm Gran Abs Auto 0.02 0.00 - 0.03 X10*3/uL [facility] Lymphocytes Absolute Auto 1.5 1.2 - 4.9 X10*3/uL [facility] Monocytes Absolute Auto 0.8 0.1 - 1.2 X10*3/uL [facility] Eosinophils Absolute Auto 0.2 0.0 - 0.4 X10*3/uL [facility] Basophils Absolute Auto 0.1 0.0 - 0.2 X10*3/uL [facility] NRBC Abs Auto 0.000 0.0 - 0.012 X10*3/uL [facility] 01/25/2025 8:44 AM EDT 01/25/2025 2:37 PM EDT us Generic External Data Provider LAB BLOOD ORDERAB LES Edited Result - Final [facility] [address] [place] [address] [phone] * Sed Rate by Modified Westergren (01/25/2025 8:44 AM EDT) Only the most recent of2 resultswithin the time period is included. Pathologist [facility] Erythrocyte Sedimentation Rate 16 0 - 20 MM/HR [facility] Comment:Patients with polycy themia and many hemoglobin abnormalitiesmay have depressed sed rates whereas patients with anemiamay have elevated sed rates. 01/25/2025 8:44 AM EDT 01/25/2025 2:37 PM EDT Generic External Data Provider LAB BLOOD ORDERAB LES Final Result Performing Organization Address [facility] Co de Phone Number [facility] [address] [place] [phone] * C-reactive Protein (01/25/2025 8:44 AM EDT) Only the most recent of2 resultswithin the time period is included. [facility] C Reactive Protein 0.12 < or = 0.50 mg/dL [facility] 01/25/2025 8:44 AM EDT 01/25/2025 2:37 PM EDT 5 CUPS and some sugar External Data Provider LAB BLOOD ORDERAB LES Final Result Performing Organization Address [facility] de Phone Number [facility] [address] [place] [phone] * (ABNORMAL) Comprehensive Metabolic Panel (01/25/2025 8:44 AM EDT) Only the most recent of2 resultswithin the time period is included. Pathologist [facility] Sodium 142 135 - 145 mmol/L [facility] Potassium 3.7 3.3 - 5.1 mmol/L [facility] Chloride 108 96 - 108 mmol/L [facility] Carbon Dioxide 28 22 - 29 mmol/L [facility] Anion Gap 10(L) 12 - 20 [facility] Urea Nitrogen (BUN) 19(H) 9 - 16 mg/dL [facility] Creatinine, Serum 0.93 0.5 - 1.4 mg/dL [facility] Estimated Glomerular Filt Rate 59 [facility] Comment:Chronic Kidney Disea se: Estimated GFR < 60 mL/min/1.86c6Octdls Kidney Disease: Estimated GFR < 15 mL/min/1.73m2 Glucose 68 60 - 115 mg/dL [facility] Calcium 9.3 8.4 - 10.2 mg/dL [facility] Bilirubin, Total 0.3 0.0 - 1.0 mg/dL [facility] Aspartate Amino Transferase 27 5 - 31 U/L [facility] Alanine Aminotransferase 11 0 - 31 U/L [facility] Total Protein 6.9 6.5 - 8.0 g/dL [facility] Albumin Level 3.5 3.5 - 5.0 g/dL [facility] Alkaline Phosphatase 121(H) 39 - 117 U/L [facility] 01/25/2025 8:44 AM EDT 01/25/2025 2:37 PM EDT us Generic External Data Provider LAB BLOOD ORDERAB LES Final Result Performing Organization Address City/State/[facility] Co de Phone Number [facility] [address] [place] [phone] * (ABNORMAL) POCT HGB A1C (11/27/2024 9:17 AM EDT) Hemoglobin A1C 8.2(A) 4.0 - 6.0 % QC Media Lot # [id number] Lot# Expiration Date [id number] Blood 11/27/2024 9:17 AM EDT Gavi Aldana DO POINT OF CARE TEST ENTER/DIAMANTE T ORDERABLES Final Result * Hepatitis Panel, General (09/04/2024 9:02 AM EDT) Hepatitis A IgM Nonreactive Nonreactive [facility] Comment:IgM antibodies to MCCANN V not detected; does not exclude earlyacute or recovered HAV infection. ~Hepatitis B Surface Antibody REACTIVE Nonreactive [facility] Comment:REACTIVE: > 11.99 mI U/mL Hepatitis B Core Antibody Nonreactive Nonreactive [facility] Hepatitis C Antibody Nonreactive Nonreactive [facility] Comment:Antibodies to HCV no t detected; does not exclude early acuteHCV infection. Hepatitis B Surface Ag Negative Negative [facility] 09/04/2024 9:02 AM EDT 09/04/2024 9:02 AM EDT us Generic External Data Provider LAB BLOOD ORDERAB LES Final Result [facility] [address] [place] [phone] * Lipid Panel, Standard (09/20/2023 7:27 AM EDT) Triglycerides 96 <150 mg/dL [facility] Comment:Desirable Triglyceri de: less than 150 mg/dLBorderline High Triglyceride 150-199 mg/dLHigh Triglyceride: 200-499 mg/dLVery High Triglyceride: greater than or equal to 5OO mg/dL Cholesterol 139 <200 mg/dL [facility] Comment:Desirable Cholestero l: less than 200 mg/dLBorderline High Cholesterol: 200-239 mg/dLHigh Cholesterol: greater than 239 mg/dL LDL Cholesterol Calculated 69 <100 mg/dL [facility] Comment:Desirable LDL: less than 100 mg/dLNear Optimal/Above Optimal LDL: 110- 129 mg/dLBorderline High LDL: 130-159 mg/dLHigh LDL: 160-189 mg/dLVery High LDL: greater than or equal to 190 mg/dL HDL Cholesterol 51 >40 mg/dL [facility] Comment:Desirable HDL: great er than 40 mg/dL Note: This HDL assay may give artificially low results in patients with liver disease. Blood Venous blood specimen / Unknown 09/20/2023 7:27 AM EDT 09/20/2023 7:27 AM EDT us Gavi Samjuliann DO LAB BLOOD ORDERABLES Final R esult Performing Organization Address [facility] Co de Phone Number [facility] [address] [place] [address] [phone] * (ABNORMAL) Albumin, Random Urine W/Creatinine (09/20/2023 7:23 AM EDT) Creatinine, Urine 211.65 mg/dL [facility] Microalbumin Urine 817.0 mg/L [facility] Microalbum Creatinine Ratio Ur 386.0(H) <30 ug/mg cr [facility] Comment:Albumin/Creatinine R atio Reference Ranges: Normal: < 30 ug/mg creatinine Microalbuminuria: 30 - 300 ug/mg creatinineClinical Albuminuria: > 300 ug/mg creatinine Urine (Urine, Random) 09/20/2023 7:23 AM EDT 09/20/2023 7:41 AM EDT Gavi Jovan DO LAB URINE ORDERABLES Final R esult Performing Organization Address [facility] Co de Phone Number [facility] [address] [place] [address] [phone] * Colonoscopy (07/28/2021 2:52 PM EST) Historical Provider MD HEALTH MAINTENANCE Final Result from Last 3 Months or Most Recently Relevant to Health Maintenance Insurance [facility] [employer] OPT[employer] (O D-SNP) DENTAL - [facility] Care Teams Manager Gas Relationship Specialty Start Date End Date Gavi Aldana DO [address] [place] [phone] PCP - General Family Medicine 06/06/18
--- OUTSIDE RECORDS SUMMARY | 2025-03-13 07:47 | XMS_ITS | Encounter Summary ---
Author Organization [employer] Address [address] [facility] 7t [place] [address] Care Team Providers Care Senior Gl Accountant Name Role Phone Gavi Aldana Primary Care Provider + [phone] Reason for Visit * Reason Onset Date Comments rs cancelled appt 02/22/2025 Encounter Details Date Type Department Care Team ([facility] st Contact Info) Description 02/22/2025 Telephone [facility] D[facility] [address] [place] [address] José Miguel Sy DDS [address] [place] [address] rs cancelled appt Social History Tobacco Use Types Packs/Day Years [...] * Telephone Encounter - Dayana Marrufo - 02/22/2025 9:48 AM EDT Patient would like to reschedule cancelled appt for lutheran with Susan. Yossi morning appt. Please reach out to patient documented in this encounter Plan of Treatment Upcoming Encounters Date Type Department Care Team (Late st Contact Info) Description 03/29/2025 8:00 AM EDT Office Visit [facility] [address] [place] [address] José Miguel Sy DDS [address] [place] [address] documented as of this encounter Visit Diagnoses Not on filedocumented in this encounter Additional Health Concerns Assessment Noted Time PHQ-9 Depression Total Score: 2 11/28/19 9:14 AM EDT documented as of this encounter Care Teams Senior Gl Accountant Relationship Specialty Start Date End Date Gavi Aldana DO [address] [place] [address] PCP - General Family Medicine 06/06/18 documented as of this encounter
--- OUTSIDE RECORDS SUMMARY | 2025-03-13 07:47 | XMS_ITS | Encounter Summary ---
Author Organization [employer] Address [address] [place] [address] [address] [address] Care Team Providers Care Telesales Advisor Name Role Phone Gavi Aldana DO Primary Care Provider [phone] Encounter Details Date Type Department Care Team (Late Contact Info) Description 12/14/2022 Orders Only [facility] CHC MED & PEDS [address] [place] [address] Gavi Duarte LPN Social History Tobacco Use [...] Description 03/29/2025 8:00 AM EDT Office Visit [facility] ADULT DENTAL [address] [place] [address] José Miguel Sy DDS [address] [place] [address] documented as of this encounter Visit Diagnoses Not on filedocumented in this encounter Care Teams Telesales Advisor Relationship Specialty Start Date End Date Gavi Aldana DO [address] [place] [address] PCP - General Family Medicine 06/06/18 documented as of this encounter
--- OUTSIDE RECORDS SUMMARY | 2025-03-13 07:47 | XMS_ITS | Encounter Summary ---
Author Organization [facility] Address [address] [place] [address] [address] [place] [address] Care Team Providers Care Watch Technician Name Role Phone Gavi Aldana DO Primary Care Provider [phone] Encounter Details Date Type Department Care Team (Latest Contact Info) Description 09/25/2018 Abstract [facility] CONVERSIONS Dental, Provider, DDS Social History [...] Description 03/29/2025 8:00 AM EDT Office Visit [facility] ADULT DENTAL [address] [place] [address] José Miguel Sy DDS [address] [place] [address] documented as of this encounter Visit Diagnoses Not on filedocumented in this encounter Care Teams Watch Technician Relationship Specialty Start Date End Date Gavi Aldana DO [address] [place] [address] PCP - General Family Medicine 06/06/18 documented as of this encounter
--- OUTSIDE RECORDS SUMMARY | 2025-03-13 07:47 | XMS_ITS | Encounter Summary ---
Author Organization [facility] Address [address] [place] [address] [address] [place] [address] Care Team Providers Care Gold And Silver Assayer Name Role Phone Gavi Aldana DO Primary Care Provider [phone]- [phone] Encounter Details Date Type Department Care Team (Late st Contact Info) Description 06/22/2022 Orders Only [facility] MEDICINE [address] [place] [address] Tamara Floyd LPN Social History Tobacco Use [...] Description 03/29/2025 8:00 AM EDT Office Visit [facility] ADULT DENTAL [address] [place], [place] [phone] José Miguel Sy DDS [address] [place], [place] [phone] documented as of this encounter Procedures Procedure Name Priority Date/Time Associated Diagnosis Comments GLUCOSE, WHOLE BLOOD Routine 07/06/2022 10:44 AM EST documented in this encounter Results * (ABNORMAL) Glucose, Whole Blood (07/06/2022 10:44 AM EST) Glucose, Whole Blood 204(H) 60 - 115 mg/dL [facility] Comment:METER #: [id number] 5Testing performed in the Endocrinology Department [address] , [address], [facility]. 07/06/2022 10:4 4 AM EST 07/06/2022 10:48 AM EST [facility] External Provider LAB BLO OD ORDERABLES Final Result Performing Organization Address City/State/[facility] Co de Phone Number [facility] [address] [place] [phone] documented in this encounter Visit Diagnoses Not on filedocumented in this encounter Care Teams Gold And Silver Assayer Relationship Specialty Start Date End Date Gavi Aldana DO [address] [place] [address] PCP - General Family Medicine 06/06/18 documented as of this encounter
--- OUTSIDE RECORDS SUMMARY | 2025-03-13 07:47 | XMS_ITS | Encounter Summary ---
Author Organization [facility] Address [address] [place] [address] [address] [place] [address] Care Team Providers Care Tree Surgeon Name Role Phone Gavi Aldana DO Primary Care Provider [phone]- [phone] Reason for Visit * Reason Comments Med Refill Encounter Details Date Type Department Care Team ([facility] Contact Info) Description 10/11/2022 Refill [facility] MEDICINE [address] [place] [address] Gavi Aldana DO [address] [place] [address] Other chronic pain Social History Tobacco Use [...] Department Care Team (Late Contact Info) Description 03/29/2025 8:00 AM EDT Office Visit [facility] ADULT DENTAL [address] [place] [address] José Miguel Sy DDS [address] [place] [address] documented as of this encounter Visit Diagnoses Diagnosis Other chronic pain documented in this encounter Care Teams Tree Surgeon Relationship Specialty Start Date End Date Gavi Aldana DO [address] [place] [address] PCP - General Family Medicine 06/06/18 documented as of this encounter
--- OUTSIDE RECORDS SUMMARY | 2025-03-13 07:47 | XMS_ITS | Clinical Summary ---
Author Organization [facility] Address [address] [place] [address] Phone Care Team Providers Care Rail Grinder Name Role Phone SamanthaGavi davis Ej [place] Primary Care Provider +1- [phone] Allergies Active Allergy Reactions Criticality Noted Date Comments Luis A Inhibitors Cough,Hives 08/10/2010 Medications metFORMIN XR (GLUCOPHAGE-XR) 500 mg 24 [...] SUPPLY MISC) Insulin Glargine (LANTUS SC) Active ketoconazole (NIZORAL) 2 % cream Apply topically 1 (one) time each day. 30 g 2 5 Active Active Problems Problem Noted Date Diagnosed Date DM type 2 (diabetes mellitus , type 2) (CMS/HCC V24, CMS/[facility] V28) 07/28/2011 Hyperlipidemia with target LDL less than 70 07/08 Overview (05/02/2024): IMO update Hypertension 07/28/2011 Non-ischemic cardiomyopathy ([facility]/HCC V24, [facility]/HC C V28) 07/28/2011 Encounters Date Type Department Care Team Description 03/04/2025 8:45 AM EDT Office Visit Orthopedic Surgery [facility] [address] [phone] Kota De La Torre DPM Tinea pedis of both feet (Primary Dx); Dermatophytosis of nail; Primary osteoarthritis of both feet; Type II diabetes mellitus with peripheral circulatory disorder (CMS/HCC V24, CMS/HCC V28); Diabetic mononeuropathy simplex (CMS/HCC V24, CMS/HCC V28); Peripheral venous insufficiency; Pain in toe of right foot; Pain in toe of left foot 02/20/2025 9:00 AM EDT Consult Vascular Surgery [facility] [address] [place] [address] Tiffanie Holbrook MD Varicose veins of both legs with edema (Primary Dx); Peripheral venous insufficiency 12/31/2024 9:15 AM EDT Office Visit Orthopedic Surgery [facility] [address] [phone] Kota De La Torre DPM Tinea pedis of both feet (Primary Dx); Dermatophytosis of nail; Primary osteoarthritis of both feet; Type II diabetes mellitus with peripheral circulatory disorder ([facility]/HCC V24, CMS/HCC V28); Diabetic mononeuropathy simplex ([facility] V24, CMS/HCC V28); Pain in toe of left foot; [...] Sign Reading Time Taken Comments Blood Pressure 102/60 02/20/2025 8:40 AM EDT Pulse 68 02/20/2025 8:40 AM EDT Temperature - - Respiratory Rate - - Oxygen Saturation - - Inhaled Oxygen Concentration - - Weight 59.9 kg (132 lb) 02/20/2025 8:40 AM EDT Height 149.9 cm (4' 11 ) 02/20/2025 8:40 AM EDT Body Mass Index 26.66 02/20/2025 8:40 AM EDT Plan of Treatment Upcoming Encounters Date Type Department Care Team (Late st Contact Info) Description 05/23/2025 9:00 AM EST Office Visit Vascular Surgery [facility] [address] [place] [address] Tiffanie Holbrook MD [address] [place] [phone] 05/27/2025 10:[address] [facility] Ultrasound [address] [place] [phone] 06/03/2025 9:15 AM EST Office Visit Orthopedic Surgery [facility] [address] [phone] Kota De La Torre, DPM [address] [phone] Health Maintenance Due Date Last Done Comments Diabetes: Annual Foot Exam 1960 Diabetes: Annual Retina Eye Exam 1960 RSV Immunization Adult Patients (1 - 1-dose 75+ series) 11/24/2023 Diabetes: Annual Urine Albumin-Creatinine Ratio (uACR) 04/07/2024 Falls Risk Assessment 04/07/2024 Hepatitis C Screening 04/07/2024 Osteoporosis Screening (Bone Density Screening) 04/07/2024 Social Influencers of Health Screening 04/07/2024 Depression Screening 06/06/2024 COVID-19 Vaccine ( season) 2025 07/14/2021, 06/23/2021 Influenza Vaccine (#1) 2025 , 06/15/2023, 03/01/2022, Additional history exists Diabetes: Blood Sugar Control Test (HGBA1C) 05/29/2025 11/27/2024, 08/15/2024, 05/28/2024 Diabetes: Annual GFR (Glomerular Filtration Rate) 01/25/2026 01/25/2025, 12/21/2024, 09/04/2024, Additional history exists Hypertension/CHF/CAD Annual BMP Blood Test 01/25/2026 01/25/2025, 12/21/2024, 09/04/2024, Additional history exists Cholesterol Screening (Lipid Panel) [...] patient's age to complete this topic Insurance [facility] Member Subscriber Plan / Payer (Ef fective 2014-Present) Name:Candi Sanchez Relation to Subscriber:Self Name:Candi Sanchez Payer ID:[id number] Group ID:[id number] Type:Not on file Address: [facility] [address] [phone] Care Teams Rail Grinder Relationship Specialty Start Date End Date Gavi Aldana DO [address] [place] [address] PCP - General Internal Medicine 10/27/11
--- NOTE | 2025-03-13 08:21 | MHC.AMDMED ---
Intake Intake Visit Reasons: 60 min Auricular Therapist Required: Yes Auricular Therapist Language: Baton Twirler Name: Mona [id number] Accompanied by: Other Relationship Allergies No Known Allergies Allergy (Verified 02/18/25 10:24) HPI Comprehensive Diabetes Asmnt Most Recent Diabetes Results: Microalb/Creat Ratio, (<30) 386.0 ug/mg cr H 09/20/23 Cholesterol, (<200) 146 mg/dL 08/15/24 HDL Cholesterol, (>40) 53 mg/dL 08/15/24 Triglycerides, (<150) 88 mg/dL 08/15/24 Creatinine, (0.5-1.4) 1.06 mg/dL 01/29/25 BUN, (9-16) 22 mg/dL H 01/29/25 Sodium, (135-145) 140 mmol/L 01/29/25 Potassium, (3.3-5.1) 4.2 mmol/L 01/29/25 Chloride, (96-108) 106 mmol/L 01/29/25 Carbon Dioxide, (22-29) 26 mmol/L 01/29/25 Calcium, (8.4-10.2) 9.7 mg/dL 01/29/25 AST, (5-31) 23 U/L 01/29/25 ALT, (0-31) 9 U/L 01/29/25 Total Protein, (6.5-8.0) 6.8 g/dL 01/29/25 Albumin, (3.5-5.0) 3.4 g/dL L 01/29/25 [facility] Medical History Polyarticular osteoarthritis Thyroid nodule greater than or equal to 1.5 cm in diameter incidentally noted on imaging study Thyroid nodule Helicobacter pylori gastritis Chronic cough On beta justine at home Nonischemic cardiomyopathy CHF (congestive heart failure) CAD (coronary artery disease) Thrombocytopenia Anemia Chronic GERD Elevated liver enzymes Seropositive rheumatoid arthritis Obesity (BMI 30-39.9) Vitamin D deficiency Dyslipidemia Hypertension 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 Mother No problems noted. 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 Patient brought approval letter from [facility], for CGM. At today's visit we called [facility] pharmacy, patient will be able to pickling grader sensors today. Discussed with patient again if she would like to consider restarting insulin pump therapy. Patient had declined insulin pump training in July 2024 after receiving iLet insulin pump. Patient's last A1c in February 2025 7.7% We did review at today's visit how to treat hypoglycemia with rule of 15s Hypoglycemia or blood glucose under 80 use the rule of 15's: If you have your blood glucose meter test your blood glucose, if you do not have your meter still follow below instruction: Keep quick-sugar foods with you at all times.? Take 15 grams of fast acting carbohydrates. Examples are 4 ounces of fruit juice or regular soda pop, 8 ounces fat-free milk, 1 tablespoon of table sugar, honey or corn syrup, jam, one miniature box of raisins, 7-8 gumdrops or Life Savers candy, 4 glucose tablets, and glucose gel.? Retest blood glucose in 15 minutes, if blood glucose is still under 90,repeat rule of 15's. If blood glucose is under 50, take 30 grams of fast acting carbohydrates If you are having hypoglycemia, or insulin reaction, more that a few times a week, call MD or die cast patternmaker F/U BG check Patient reports she treats hypoglycemia with orange juice or glucose tabs In addition reviewed insulin action of NovoLog and Tresiba. Patient reports that she occasionally will not take Tresiba if she is concerned about hypoglycemia. Discussed with patient the importance of always taking Tresiba to avoid risk of DKA. Patient is concerned about afternoon hypoglycemia, she can reduce lunchtime NovoLog dose from 12 units to 10 units Patient able to insert sensor independently at home without issue.? Patient has follow-up appointment with Dr. Cui on 04/04/25 Patient will follow-up with die cast patternmaker in 6 months, if patient needs to be seen sooner instructed to move appointment with die cast patternmaker up Portions of this note were created using voice recognition software, please excuse any words or phrases that may have been misinterpreted. 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
== END 2025-03-13 08:39 | disposition home or self-care (01) ==
LOC: HO.ENCR 07:44
PROVIDERS: PCP Family Medicine; Visit Provider Registered Nurse Diabetes Educator
DX: E10.42 Type 1 diabetes mellitus with diabetic polyneuropathy (principal)

== ENCOUNTER → 2025-03-13 07:43 | Outpatient (BNVA) | payer OTHER, SELFPAY | PROVIDERS: PCP Family Medicine; Visit Provider Registered Nurse Diabetes Educator | DX: E10.42 Type 1 diabetes mellitus with diabetic polyneuropathy (principal) | CPT/HCPCS: 99211 ==

== ENCOUNTER 2025-04-16 08:36 | Outpatient (AMB) | payer OTHER, SELFPAY ==
--- NOTE | 2025-04-16 08:39 | A.OFFVIS_ITS ---
Vital Signs 3 04/16/25 09:00 Height 5 ft 3 in Weight 138 lb 14.259 oz BMI 24.6 BP 142/70 H Blood Pressure Location Rt brachial Position Sitting Pulse 69 Pulse Source Pulse Oximeter Pulse Oximetry (%) 96 Oxygen Delivery Method Room Air Intake Visit Reasons: type 1 DM and thyroid- pt Intake Note: Patient presents today for a follow-up on Type 1 Diabetes Mellitus Thyroid Nodule: Last seen by DR Shruthi Cui MD. Last Diabetic eye exam: 11/2024, [facility] Last Podiatry Visit: 11/2024, [facility] Roll Out Manager Most recent HbA1c: 7.7%, 01/29/2025 Random Glucose: 205 mg/dL L Community Health Worker Required: No Accompanied by: Daughter Allergies No Known Allergies Allergy (Verified 04/16/25 09:01) HPI Comments Details: 74 years with history of GERD, rheutmatoid arthritis, Type 1 DM , CHF coming in today for follow up of type 1 diabetes mellitus and thyroid nodules. Here with TAX REPRESENTATIVE. Last seen by Dr. Cui on 01/29/25. This is my first time seen this patient. Interval history 04/16/25: Uses Tresiba 12 units at night and Novolog 12 to 14 units before breakfast and lunch, 10 units before dinner She is always compliant She reports that her BG has been variable, but sometimes she experiences lows at night. Denies hypoglycemia after meals. She reports a persistent cough, initially kathy as a raspy/itching feeling, fro more than 1 year. Stable, mostly intermittent. Relieved by drinking water. Cough not related to lying down. Reports mild dysphagia to all foods, sometimes having a bolus sensation. Type 1 diabetes mellitus DM type 1 diagnosed 2009 Current regimen Tresiba 12 units at night Insulin novolog 12 to 14 units before breakfast and lunch, 10 units before dinner She was seen by CDE November 2024, apparently back in July 2024 there was some discussion about considering ilet, but patient cannot tell me today where that discussion went, last visit with Sarah, Discussed with patient again if she would like to consider restarting insulin pump therapy. Patient had declined insulin pump training in July 2024 after receiving iLet insulin pump. C peptide 0.47 09/2023 Micro and macrovascular complications: CAD, nephropathy No retinopathy last eye exam 11/28 has glaucoma No neuropathy: Symptoms reported: denies numbness, tingling, cramping in lower extremities She does have some arthritis pain in her foot. 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 [facility] . 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 TSH normal September 27. US THYROID 04/28 I reviewed the images myself, and she does have a right-sided dominant nodule measuring 2.2 cm, which is solid hyperechoic, it is hard to tell of the lower border, though this is reported as it taller than wide, which makes it MICHEL high suspicious category, with greater than 50% chance of malignancy. She also has other left-sided nodules, with a 2.2 cm left mid lobe nodule that is solid, hyperechoic TR 3 category and another 2 cm left inferior lobe nodule which is also solid and hyperechoic and TR 3 category, these are both MICHEL low suspicion nodules with 5-10% chance of malignancy. FNA 02/21 of the right dominant 2.2 cm nodules revealed AUS with nuclear atypia , Afirma benignb (less than 4% risk of malignany) Describes chronic cough for the past year, accompanied by difficulty swallowing which has persisted. Difficulty with pills , solids and liquids. But she says it is mildly bothersome with repeatedly clearing her throat, but still able to eat. No voice changes. No difficulty breathing. She has diffculty laying too flat, gets dizzy, uses two pillows. Patient currently denies heat or cold intolerance, diarrhea or constipation, hair loss, palpitation, anxiety, weight changes, mood changes, low energy, changes in appearance of eyes or vision changes, tremors, increased diaphoresis or dry skin. Patient denies any history of childhood neck radiation. Denies having ever used lithium, amiodarone or biotin supplements. Patient denies any family history of thyroid cancer or thyroid disease. Brother had lung cancer, was a smoker no other family history of cancer. August 2024 had repeat ultrasound which showed a right lower pole 0.9 cm nodule mixed cystic solid, hypoechoic, which would be a TR 3 category nodule, remained stable in size compared to previous ultrasound. The previous right lower pole dominant nodule is now measured as right mid/lower pole 1.7 cm nodule which is TR 3 category, but this was the 2.2 cm nodule that we biopsied back in February 2024 which was benign on Afirma., a right lower pole 1.6 cm mixed cystic solid isoechoic TR 3 nodule which does not meet criteria for FNA. This was not visualized previously? The left midpole nodule measures as 1.6 cm in largest dimension which is solid isoechoic, TR 3 category that has decreased in size compared to largest dimension 2.2 previously, I will left lower pole 1.6 cm nodule which is solid isoechoic TR 3 category, has also decreased in size from 2 cm. Overall comparison is difficult to prior images. But overall nodules looks stable. Labs September 2024 normal TSH free t4 Physical exam: General: Well appearing. NAD. Neck/Thyroid: Thyroid not palpable, no nodules. CV: RRR, no murmur. Mild pittind edema bilaterally. Resp:Lungs clear to auscultation bilaterally Abdomen: Soft, nontender. nondistended Extremities/Neuro: No weakness or tremor of outstretched hands Laboratory Tests 09/20/23 08/15/24 01/29/25 07:23 09:42 08:30 BUN Creatinine Estim Creat Clear Calc Random Glucose Hgb A1c (Clinic) 7.7 H AST ALT Microalb/Creat Ratio 386.0 H Protein/Creatinin Ratio 2.06 H 01/29/25 09:48 BUN 22 H Creatinine 1.06 Estim Creat Clear Calc 37.3 Random Glucose 135 H Hgb A1c (Clinic) AST 23 ALT 9 Microalb/Creat Ratio Protein/Creatinin Ratio US THYROID 08/23/24 CLINICAL INFORMATION: Nontoxic single thyroid nodule COMPARISON: None available. TECHNIQUE: Linear transducer grayscale and color Doppler examination with attention to the region of the thyroid. FINDINGS: SIZE: Measurements of the thyroid lobes and nodules are given in sagittal, anteroposterior and transverse dimensions respectively. Right Thyroid Lobe: 5.5 x 2.9 x 2.4 cm, volume 20 mL. Previously 4.7 x 2.7 x 2.4 cm. Volume 14.4 mL Parenchyma: The gland echotexture is normal. Thyroid vascularity is normal. Left Thyroid Lobe: 5.5 x 3.2 x 2.3 cm, volume 22 mL. Previously 4.5 x 2.7 x 2.4 cm. Volume 13.9 mL Parenchyma: The gland echotexture is normal. Thyroid vascularity is normal. Isthmus: 0.3 cm in maximum AP dimension. Estimated total number of nodules greater than or equal to 1 cm: 4. Ct Mri Technologist nodules are described as follows: 1. Location: Right distal mass lower pole. Size: 0.9 x 0.4 x 0.7 cm, volume 0.106 mL. Nodule characteristics: Composition: Mixed cystic and solid (1). Echogenicity: Hypoechoic Shape: Wider Margins: Smooth (0). Echogenic Foci: None (0). ACR TI-RADS total points: 4 ACR TI-RADS category: TR 4 2. Location: Right mid/lower pole. Size: 1.7 x 1.3 x 1.5 cm, volume 1.6 mL. Nodule characteristics: Composition: Solid (2). Echogenicity: Isoechoic (1). Shape: Widened Margins: Smooth (0). Echogenic foci : None. ACR TI-RADS total points: 3 ACR TI-RADS category: 3 3. Location: Right lower pole. Size: 1.5 x 1.4 x 1.6 cm, volume 1.7 mL. Nodule characteristics: Composition: Solid/almost completely solid (2). Echogenicity: Isoechoic (1). Shape: Wider Margins: Smooth (0). Echogenic Foci: None (0). ACR TI-RADS total points: 3 ACR TI-RADS category: 3 4. Location: Left midpole. Size: 1.4 x 1.1 x 1.6 cm, volume 1.3 mL. Previously measured 2.2 x 1.1 x 2.0 cm and volume 2.4. Nodule characteristics: Composition: Solid (2). Echogenicity: Isoechoic (1). Shape: Wider Margins: Smooth (0). Echogenic Foci: None (0). ACR TI-RADS total points: 3 ACR TI-RADS category: 3. 5. Left lower pole nodule. It measures 1.3 x 1.2 x 1.6 cm in volume 1.3 mL. Previously measured 2.0 x 1.8 x 1.4 cm in volume mL. There is a solid nodule with isoechoic texture, wider, smoother margins and no echogenic foci. Total points 3. Ti-rads 3. NODES: No lymphadenopathy is seen in the tissue surrounding the thyroid gland. US/US thyroid IMPRESSION: Enlarged bilateral thyroid lobes. Multiple nodules largest measuring 1.7 cm right mid to lower pole. Most of these are solid nodules. Recommend continued follow-up US THYROID 04/28 CLINICAL INFORMATION: Abnormal findings on diagnostic imaging. COMPARISON: CT chest without contrast 02/03/2023. TECHNIQUE: Linear transducer mena-scale and color Doppler examination with attention to the region of the thyroid. Technically difficult study secondary to thyroid located low in neck, bilateral lower poles limited visualization. FINDINGS: SIZE: Measurements of the thyroid lobes and nodules are given in sagittal, anteroposterior and transverse dimensions respectively. Right Thyroid Lobe: 4.7 x 2.7 x 2.4 cm, volume 14.4 mL. Parenchyma: The gland echotexture is heterogeneous. Thyroid vascularity is normal. Left Thyroid Lobe: 4.5 x 2.7 x 2.4 cm, volume 13.9 mL. Parenchyma: The gland echotexture is heterogeneous. Thyroid vascularity is normal. Isthmus: 0.3 cm in maximum AP dimension. Estimated total number of nodules greater than or equal to 1 cm: 4. Ct Mri Technologist nodules are described as follows: 1. Location: Right isthmus inferior. Size: 0.8 x 0.4 x 0.9 cm, volume 0.15 mL. Nodule characteristics: Composition: Solid (2). Echogenicity: Hypoechoic (2). Shape: Not taller than wide (0). Margins: Smooth (0). Echogenic Foci: None (0). ACR TI-RADS total points: 4 ACR TI-RADS category: 4 2. Location: Right inferior. Size: 1.1 x 0.9 x 0.4 cm, volume 0.2 mL. Nodule characteristics: Composition: Cystic(0). ACR TI-RADS total points: 0 ACR TI-RADS category: 1 3. Location: Right inferior. Size: 2.2 x 1.9 x 1.6 cm, volume 2.5 mL. Nodule characteristics: Composition: Solid (2). Echogenicity: Hyperechoic (1). Shape: Taller than wide (3). Margins: Ill-defined (0). Echogenic Foci: None (0). ACR TI-RADS total points: 6 ACR TI-RADS category: 4 4. Location: Left mid. Size: 2.2 x 1.1 x 2.0 cm, volume 2.4 mL. Nodule characteristics: Composition: Solid/almost completely solid (2). Echogenicity: Hyperechoic (1). Shape: Not taller than wide (0). Margins: Smooth (0). Echogenic Foci: None (0). ACR TI-RADS total points: 3 ACR TI-RADS category: 3 5. Location: Left inferior. Size: 2.0 x 1.8 x 1.4 cm, volume 2.7 mL. Nodule characteristics: Composition: Solid (2). Echogenicity: Hyperechoic (1). Shape: Not taller than wide (0). Margins: Smooth (0). Echogenic Foci: None (0). ACR TI-RADS total points: 3 ACR TI-RADS category: 3 NODES: No lymphadenopathy is seen in the tissue surrounding the thyroid gland. US/US thyroid IMPRESSION: 1. A 2.2 cm inferior thyroid lobe TR 4 nodule meets ACR biopsy criteria and is amenable to ultrasound-guided biopsy, if clinically indicated and not already performed. 2. There is a diffuse goiter. 3. There is heterogeneous thyroid echotexture, consistent with thyroiditis. [facility] data: not available [facility] Medical History Polyarticular osteoarthritis Thyroid nodule greater than or equal to 1.5 cm in diameter incidentally noted on imaging study Thyroid nodule Helicobacter pylori gastritis Chronic cough On beta justine at home Nonischemic cardiomyopathy CHF (congestive heart failure) CAD (coronary artery disease) Thrombocytopenia Anemia Chronic GERD Elevated liver enzymes Seropositive rheumatoid arthritis Obesity (BMI 30-39.9) Vitamin D deficiency Dyslipidemia Hypertension 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 Mother No problems noted. Maternal Aunt Diabetes mellitus Social History Household Members: None Housing: Apartment Are you a primary care aide to a significant other at home: No Do you presently have visiting nurse or other home services: Yes (telephone) Alcohol intake: never Patient Tobacco Use Status: Never used Tobacco service: No Current occupational status: retired Current occupation: rt handed Physical Exam Vital Signs: Last Vital Signs Pulse 69 04/16/25 09:00 BP 142/70 H 04/16/25 09:00 Pulse Ox 96 04/16/25 09:00 Oxygen Delivery Method Room Air 04/16/25 09:00 BMI result Body Mass Index 24.6 Assessment & Plan Assessment & Plan (1) Diabetes type 1, uncontrolled: Code(s): E10.65 - Type 1 diabetes mellitus with hyperglycemia Category: Medical Qualifiers: Glycemic state: with hyperglycemia Qualified Code(s): E10.65 - Type 1 diabetes mellitus with hyperglycemia Plan: 74-year-old female coming in today for type 1 diabetes mellitus with complications of nephropathy, CKD stage 3, CAD. A1c POC 01/29/2025 at 7.7% which is improved from 8.8% in July 2024. No sensor data available today, but patient reports that she is having tremors provided episode of hypoglycemia at night, requiring treatment. She denies any significant episode of hypoglycemia after meals. She is also on Jardiance 10 mg daily started by cardiology, has CKD stage 3, nephrology is also following. Plan: Decrease Insulin Tresiba to 10 units daily at bedtime Insulin novolog Based on Advice the pt to always bring the meter Take novolog 15 mins before meals (2) Thyroid nodule greater than or equal to 1.5 cm in diameter incidentally noted on imaging study: Code(s): E04.1 - Nontoxic single thyroid nodule Category: Medical Plan: Patient with no family history of thyroid cancer, with no personal history of head or neck radiation who is coming in today to discuss results of FNA done 02/21. She has had a chronic cough for about the last year that has been persistent, she also has a history of GERD, she was evaluated by pulmonology and chest CT led to incidental discovery of multinodular goiter. Subsequent ultrasound thyroid in April 2023 showed multiple bilateral nodules, with a right-sided dominant nodule measuring 2.2 cm, which is solid hyperechoic, , reported as it taller than wide, which makes it MICHEL high suspicious category, with greater than 50% chance of malignancy. She also has other left-sided nodules, with a 2.2 cm left mid lobe nodule that is solid, hyperechoic TR 3 category and another 2 cm left inferior lobe nodule which is also solid and hyperechoic and TR 3 category, these are both MICHEL low suspicion nodules with 5-10% chance of malignancy. Underwent FNA 02/22/24 of the right dominant 2.2 cm nodules revealed AUS with nuclear atypia , Afirma benign (less than 4% risk of malignancy). August 2024 had repeat ultrasound which showed a right lower pole 0.9 cm nodule mixed cystic solid, hypoechoic, which would be a TR 3 category nodule, remained stable in size compared to previous ultrasound. The previous right lower pole dominant nodule is now measured as right mid/lower pole 1.7 cm nodule which is TR 3 category, but this was the 2.2 cm nodule that we biopsied back in February 2024 which was benign on Afirma., a right lower pole 1.6 cm mixed cystic solid isoechoic TR 3 nodule which does not meet criteria for FNA. This was not visualized previously? The left midpole nodule measures as 1.6 cm in largest dimension which is solid isoechoic, TR 3 category that has decreased in size compared to largest dimension 2.2 previously, I will left lower pole 1.6 cm nodule which is solid isoechoic TR 3 category, has also decreased in size from 2 cm. Overall comparison is difficult to prior images. But overall nodules looks stable. She does have some degree of compressive symptoms, she does report bothersome cough and dysphagia. the cough could be from her chronic GERD, Entresto or could be related to thyroid. I explained to her that her thyroid appears normal in size, but have change in volume significantly compared to the ultrasound with 2022 with a ultrasound of November 2024. I advised the patient to discuss with her telehealth case manager to see if they think that the Entresto might be related to discuss, otherwise if patient continues to have symptoms of the symptoms worsen, or the next thyroid ultrasound shows changes in thyroid volume, I will consider referring the patient for thyroid surgery. Plan: -we will plan to repeat TFTs and thyroid ultrasound in August 2025 Plan I spent 30 minutes in reviewing the record, seeing the patient and documenting in the medical record. Patient Instructions: Disminuya Tresiba a 10 unidades en la noche Use la escala de insulina que se muestra abajo Por favor siempre traiga el sensor de azucar Coding Level of Care Code Est Pt Level 4 (46755) Diagnoses Uncontrolled type 1 diabetes mellitus with hyperglycemia E10.65 Glycemic state: with hyperglycemia Thyroid nodule greater than or equal to 1.5 cm in diameter incidentally noted on imaging study E04.1
--- OUTSIDE RECORDS SUMMARY | 2025-04-16 08:47 | XMS_ITS | Encounter Summary ---
Author Organization [employer] [facility] Address [address] [place] [address] [address] [place] [address] Care Team Providers Care C D Still Operator Name Role Phone Gavi Aldana DO Primary Care Provider [phone] Encounter Details Date Type Department Care Team (Late st Contact Info) Description 06/22/2022 Orders Only [facility] [address] [place] [address] Tamara Floyd LPN Social History Tobacco Use [...] Care Team (Late st Contact Info) Description 05/13/2025 10:00 AM EST Office Visit [facility] [address] [place], [place] [phone] José Miguel Sy DDS [address] [place], [place] [phone] documented as of this encounter Procedures Procedure Name Priority Date/Time Associated Diagnosis Comments GLUCOSE, WHOLE BLOOD Routine 07/06/2022 10:44 AM EST documented in this encounter Results * (ABNORMAL) Glucose, Whole Blood (07/06/2022 10:44 AM EST) Glucose, Whole Blood 204(H) 60 - 115 mg/dL [facility] Comment:METER #: [id number] 5Testing performed in the Endocrinology Department [address] , [address], [facility]. 07/06/2022 10:4 4 AM EST 07/06/2022 10:48 AM EST [facility] External Provider LAB BLO OD ORDERABLES Final Result Performing Organization Address City/State/[facility] Co de Phone Number [facility] [address] [place] [address] [phone] documented in this encounter Visit Diagnoses Not on filedocumented in this encounter Care Teams C D Still Operator Relationship Specialty Start Date End Date Gavi Aldana DO [address] [place] [address] PCP - General Family Medicine 06/06/18 documented as of this encounter
--- OUTSIDE RECORDS SUMMARY | 2025-04-16 08:47 | XMS_ITS | Encounter Summary ---
Author Organization [employer] Address [address] [facility] [address] [place] [address] Care Team Providers Care Director Of Patient Care Name Role Phone Gavi Aldana DO Primary Care Provider + [phone] Reason for Visit * Reason Comments Med Refill Encounter Details Date Type Department Care Team ([facility] st Contact Info) Description 04/04/2024 Refill [facility] [address] [place] [address] Gavi Aldana DO [address] [place], [place] [phone] Social History Tobacco Use Types Packs/Day Years [...] Description 05/13/2025 10:00 AM EST Office Visit [facility] ADULT [facility] [address] [place] [address] José Miguel Sy DDS [address] [place] [address] documented as of this encounter Visit Diagnoses Not on filedocumented in this encounter Additional Health Concerns Assessment Noted Time PHQ-9 Depression Total Score: 1 06/15/19 24 10:29 AM EST documented as of this encounter Care Teams Director Of Patient Care Relationship Specialty Start Date End Date Gavi Aldana DO [address] [place] [address] PCP - General Family Medicine 06/06/18 documented as of this encounter
--- OUTSIDE RECORDS SUMMARY | 2025-04-16 08:47 | XMS_ITS | Encounter Summary ---
Author Organization [employer] [facility] Address [address] [place] [address] [address] [place] [address] Care Team Providers Care Attending Urologist Name Role Phone Gavi Aldana DO Primary Care Provider [phone] Reason for Visit * Reason Comments Med Refill Encounter Details Date Type Department Care Team ([facility] Contact Info) Description 10/11/2022 Refill [facility] [address] [place] [address] Gavi Aldana DO [address] [place] [address] Other chronic pain Social History Tobacco Use [...] Department Care Team (Late Contact Info) Description 05/13/2025 10:00 AM EST Office Visit [facility] [address] [place] [address] José Miguel Sy DDS [address] [place] [address] documented as of this encounter Visit Diagnoses Diagnosis Other chronic pain documented in this encounter Care Teams Attending Urologist Relationship Specialty Start Date End Date Gavi Aldana DO [address] [place] [address] PCP - General Family Medicine 06/06/18 documented as of this encounter
--- OUTSIDE RECORDS SUMMARY | 2025-04-16 08:47 | XMS_ITS | Encounter Summary ---
Author Organization [employer] Address [address] [facility] [address] [place] [address] Care Team Providers Care Otr Truck Driver Name Role Phone FlacoGavi humphreys Primary Care Provider + [phone] Encounter Details Date Type Department Care Team (Late st Contact Info) Description 09/14/2023 Orders Only [facility] [address] [place] [address] Provider, MD Mel[place] Social History Tobacco Use [...] Description 05/13/2025 10:00 AM EST Office Visit [facility] [address] [place], [place] [phone] José Miguel Sy DDS [address] [place], [place] [phone] documented as of this encounter Procedures Procedure [...] documented as of this encounter Care Teams Otr Truck Driver Relationship Specialty Start Date End Date Gavi Aldana DO [address] [place] [address] PCP - General Family Medicine 06/06/18 documented as of this encounter
--- OUTSIDE RECORDS SUMMARY | 2025-04-16 08:47 | XMS_ITS | Encounter Summary ---
Author Organization [employer] Address [address] [place] [address] [address] [place] [address] Care Team Providers Care Dairy Products Maker Name Role Phone Gavi Aldana DO Primary Care Provider [phone]- [phone] Encounter Details Date Type Department Care Team (Late Contact Info) Description 07/22/2022 Orders Only [facility] [address] [place] [address] Gavi Duarte LPN Social History Tobacco Use [...] Description 05/13/2025 10:00 AM EST Office Visit [facility] [address] [place] [address] José Miguel Sy DDS [address] [place] [address] documented as of this encounter Visit Diagnoses Not on filedocumented in this encounter Care Teams Dairy Products Maker Relationship Specialty Start Date End Date Gavi Aldana DO [address] [place] [address] PCP - General Family Medicine 06/06/18 documented as of this encounter
--- OUTSIDE RECORDS SUMMARY | 2025-04-16 08:47 | XMS_ITS | Clinical Summary ---
Author Organization [employer] Address [address] [place] [address] 7[address] [place] [address] Care Team Providers Care Enrollment Management Manager Name Role Phone Gavi Aldana DO Primary Care Provider [phone] Allergies Active Allergy Reactions Criticality Noted Date Comments Luis A Inhibitors Cough,Hives 08/10/2010 Medications Skin Protectants, Misc. (Minerin Creme) creamIndicati ons:Dry skin APPLY TO DRY SKIN 2 TO 3 TIMES PER DAY 454 g 4 06/22/19 23 Active Skin Protectants, Misc. (eucerin) cream apply topically to dry skin 2-3times a day 09/24/19 22 Active Nystop 020779 UNIT/GM powder APPLY TO THE AFFECTED AREA(S) [...] by mouth 2 times daily. 12/14/19 Active spironolacton e (Aldactone) 25 MG tablet Take 25 mg by mouth in the morning. 10/12/19 Active UltiCare Short Pen [place] 31G X 8 MM misc USE DIRECTED [...] THE EVENING 60 g 2 06/29/19 Active cholecalcifer ol (Vitamin D-3) 50 MCG (1999 UT) capsule Take 1 capsule (50 mcg) by mouth Once per day. 30 capsule 11 10/04/19 Active melatonin 5 MG tablet TAKE 1 OR 2 TABLETS BY MOUTH AT BEDTIME NEEDED FOR SLEEP 60 tablet 3 12/01/19 Active acetaminophen (Tylenol 8 Hour) 650 MG ER tablet TAKE 1 TABLET BY MOUTH EVERY 8 HOURS NEEDED FOR MILD PAIN 30 tablet 04/04/20 Active Additional Information Patient not taking.Reported on 03/29/2025 amitriptyline (Elavil) 10 MG tablet Take 0.5 tablets (5 mg) by mouth at bedtime. 15 tablet 3 05/28/20 24 2024 Active glucose 4 g chewable tablet CHEW 2 TO 4 TABLETS BY MOUTH NEEDED FOR LOW BLOOD SUGAR 30 tablet 5 06/01/20 Active lidocaine (Lidoderm) 5 % patchIndicati ons:Acute pain of right shoulder Apply 1 patch topically Once per day. Remove & discard patch after 12 hours. 30 patch 08/16/19 25 Active omeprazole (PriLOSEC) [address] capsule Take 1 capsule (40 mg) by mouth before breakfast and before evening meal. 60 capsule 11/28/19 25 Active fexofenadine (Barbara) 180 MG tablet Take 1 tablet (180 mg) by mouth Once per day. 30 tablet 11/28/19 25 2025 Active benzonatate (Tessalon) 100 MG capsule Take 1 capsule (100 mg) by mouth if needed in the morning, at noon, and at bedtime for cough. Do not crush or chew. 30 capsule 11/28/19 25 Active triamcinolone (Nasacort) 55 MCG/ACT nasal inhaler Administer 2 sprays into each nostril Once per day. 16.5 g 11/28/19 25 2025 Active baclofen (Lioresal) 10 MG tabletIndicat ions:Acute pain of right shoulder TAKE 1 TABLET BY MOUTH THREE TIMES DAILY NEEDED 42 tablet 03/26/20 25 Active Diclofenac Sodium 1 % gel APPLY 2 GRAMS TO AFFECTED AREA(S) 4 TIMES A DAY IN THE MORNING, AT NOON, IN THE EVENING, AND AT BEDTIME NEEDED FOR PAIN 100 g 5 04/03/20 25 Active Diclofenac Sodium 1 % gel Apply 2 g topically if needed in the morning, at noon, in the evening, and at bedtime (pain). 150 g 3 11/28/19 25 2024 Discontinued baclofen (Lioresal) 10 MG tabletIndicat ions:Acute pain of right shoulder TAKE 1 TABLET BY MOUTH THREE TIMES DAILY NEEDED 42 tablet 12/29/19 25 2024 Discontinued Active Problems Problem Noted Date Diagnosed Date Open fracture of tooth 03/29/2025 Dental caries into pulp 07/04/2024 Dental calculus 07/04/2024 Localized gingival recession 07/04/2024 Dental caries 07/04/2024 Missing teeth, acquired 07/04/2024 Chronic dental pain 07/04/2024 Pulmonary nodules 06/15/2023 Multiple thyroid nodules 06/15/2023 Allergic rhinitis 06/15/2023 Type 1 diabetes mellitus 09/08/2022 Essential hypertension 09/08/2022 Hyperlipidemia 09/08/2022 Nonischemic cardiomyopathy ([facility]/HCC) 09/08/2022 Seropositive rheumatoid arthritis ([facility]) 0410/2022 Chronic left shoulder pain 09/08/2022 Chronic right shoulder pain 09/08/2022 Immune thrombocytopenic purpura ([facility]) 2022 Eczema 09/08/2022 AICD (automatic cardioverter/defibrillator) pres ent 09/08/2022 Chronic systolic heart failure 09/08/2022 Paroxysmal atrial flutter ([facility]) 09/08/2022 Chronic gastroesophageal reflux disease 09/09/19 23 [...] reports she was exposed to Covid-19 at [employer] but she always wears a mask Physical exam wnl Rapid strep, Covid and Flu negative Plan: supportive measures, recommended Tylenol prn, pt to test at home if symptoms do not improve or worsen and notify us if positive or worsening of symptoms Pt verbalized understanding Encounters Date Type Department Care Team Description 04/02/2025 Refill [facility] MEDICINE [address] [place] [address] Gavi Aldana DO 03/29/2025 8:00 AM EDT Office Visit [facility] ADULT DENTAL [address] [place] [address] José Miguel Sy DDS Dental caries (Primary Dx); Open fracture of tooth, initial encounter 03/25/2025 Refill [facility] CHC MED & PEDS [address] [place] [address] Candi Loaiza MD Acute pain of right shoulder 02/22/2025 Telephone [facility] ADULT DENTAL [address] [place] [address] José Miguel Sy DDS rs cancelled appt [...] the past 12 months, has t he [employer], gas, oil or water [employer] threatened to shut off services in your [...] Sign Reading Time Taken Comments Blood Pressure 126/74 03/29/2025 8:05 AM EDT Pulse 75 11/27/2024 9:10 AM [...] Description 05/13/2025 10:00 AM EST Office Visit [facility] ADULT DENTAL [address] [place] [address] José Miguel Sy, ROSCOES [address] [place], [place] [phone] Health Maintenance Due Date Last Done Comments [...] Depression Screening 11/27/2025 11/27/2024, 11/28/19 Tobacco Screening 03/29/2026 03/29/2025 DTaP/Tdap/Td Vaccines (3 - Td or Tdap) [...] Procedure Name Priority Date/Time Associated Diagnosis Comments CASE PRESENTATION, DETAILED AND EXTENSIVE TREATMENT PLANNING Routine 03/29/2025 8:00 AM EDT 8 MIDL RESIN-BASED COMPOSITE - 4 OR MORE SURFACES (ANTERIOR) Routine 03/29/2025 8:00 AM EDT CYTOPATH-CELL ENHANCED Routine 02/18/2025 4:53 PM EDT GLUCOSE, WHOLE BLOOD Routine 01/29/2025 8:27 AM EDT SED RATE BY MODIFIED WESTERGREN Routine 01/25/2025 8:44 AM EDT SLIDE REVIEW Routine 01/25/2025 8:44 AM EDT CBC WITH AUTO DIFFERENTIAL Routine 01/25/2025 8:44 AM EDT C-REACTIVE PROTEIN Routine 01/25/2025 8: 44 AM EDT COMPREHENSIVE METABOLIC PANEL Routine 01/25/2025 8:44 AM EDT POCT GLYCATED HEMOGLOBIN, TOTAL Routine 11/27/2024 [...] complication, with long-term current use of insulin (CMS/[facility]) ALBUMIN, RANDOM URINE W/CREATININE Routine 09/20/2023 7:23 AM EDT Type 2 diabetes mellitus without complication, with long-term current use of insulin (CMS/[facility]) PROPHYLAXIS - ADULT Routine 03/10/2022 1 2:00 AM EDT INTRAORAL - COMPLETE SERIES OF RADIOGRAPHIC IMAGES Routine 03/10/2022 12:00 AM EDT HM COLONOSCOPY Routine 07/28/2021 2:52 PM EST from Last 3 Months or Most Recently Relevant to Health Maintenance Results * Cytopath-cell enhanced (02/18/2025 4:53 PM EDT) 02/18/2025 4:53 PM EDT 02/20/2025 11:20 AM EDT [facility] - 02/24/2025 3:47 PM EDT ----- ------- Name: Sanchez MuellerCandi parmar Age/Sex: 74/F : 1950 Unit#: [id number] Attend Dr: Nallely BacaP-BC Re02/18/25 Status: DEP [facility] Disch: ----- ------- SPEC : [id number] RECD: 02/20/25 STATUS: PABLO PEREZ NUM: [id number] MILAN: 02/18/[address]: Nallely Baca [facility] ENTERED: 02/20/25-1340 SP TYPE: Cytology OTHR DR: [...] developed and their performance characteristics determined by [facility]. They have not been cleared or approved by the U.S. Food and Drug Administration (FDA). However, the FDA has determined that such clearance or approval is not necessary. This laboratory is certified under the Clinical Laboratory Improvement Amendments of 1988 (CLIA) as qualified to perform high complexity clinical laboratory testing. Copies To: Gavi Aldana DO [address] [id number] Nallely Baca [facility] [address] [place] [address] Dr. Aponte [address] [place], [place] [id number] [email or web address] CONTINUED ON NEXT PAGE ----- ------- Name: Candi Solomon Age/Sex: 74/F : 1950 Unit#: [id number] Attend Dr: Nallely Baca [facility] Re02/18/25 Status: DEP [facility]F [facility] Disch: ----- ------- SPEC : [id number] RECD: 02/20/25-1119 STATUS: PABLO PEREZ NUM: [id number] MILAN: 02/18/25-[address] [facility] [address]: Nallely Baca [facility] ENTERED: 02/20/25-1340 SP TYPE: Cytology OTHR DR: Gavi Aldana DO ORDERED: Cyto-enhanced ----- ------- Signed (signature on file) Arlin Ogden MD 02/24/25 1547 ----- ------- END OF REPORT Generic External Data Provider LAB CYTOLOGY ORDE RABLES Final Result Performing Organization Address [facility] Co de Phone Number [facility] [address] [place] [phone] * (ABNORMAL) Glucose, Whole Blood (01/29/2025 8:27 AM EDT) Glucose, Whole Blood 202(H) 60 - 115 mg/dL [facility] Comment:METER #: [id number] 0Testing performed in the Endocrinology Department [address] , [address], [facility]. 01/29/2025 8:27 AM EDT 01/29/2025 8:31 AM EDT Generic External Data Provider LAB BLOOD ORDERAB LES Final Result Performing Organization Address [facility] Co de Phone Number [facility] [address] [place] [phone] * Slide Review (01/25/2025 8:44 AM EDT) Slide Review VERIFIED [facility] 01/25/2025 8:44 AM EDT 01/25/2025 2:37 PM EDT Generic External Data Provider LAB BLOOD ORDERAB LES Final Result Performing Organization Address [facility] Co de Phone Number [facility] [address] [place] [phone] * (ABNORMAL) CBC auto differential (01/25/2025 8:44 AM EDT) White Blood Count 7.8 4.8 - 10.8 X10*3/uL [facility] Red Blood Count 4.83 4.20 - 5.50 X10*6/uL [facility] Hemoglobin 11.1(L) 12.0 - 16.0 g/dl [facility] Hematocrit 36.7(L) 37.0 - 47.0 % [facility] Mean Corpuscular Volume 76.0(L) 80.0 - 98.0 fL [facility] Mean Corpuscular Hemoglobin 23.0(L) 27.0 - 33.0 pg [facility] Mean Corpuscular HGB Conc 30.2(L) 31.0 - 35.0 g/dl [facility] Red Cell Distribution Width 15.5 11.0 - 16.0 % [facility] Platelet Count 113(L) 160 - 400 X10*3/uL [facility] Comment:Confirmed by smear. Neutrophils Percent Auto 66.5 45 - 73 % [facility] Imm Gran Pct Auto 0.3 0.0 - 0.4 % [facility] Lymphocytes Percent Auto 19.5(L) 20 - 40 % [facility] Monocytes Percent Auto 10.6 2 - 11 % [facility] Eosinophils Percent Auto 2.3 0 - 4 % [facility] Basophils Percent Auto 0.8 0 - 2 % [facility] NRBC Pct Auto 0.0 0.0 - 0.2 /100WBC [facility] Neutrophils Absolute Auto 5.2 2.0 - 8.3 x10*3/uL [facility] Imm Gran Abs Auto 0.02 0.00 - 0.03 X10*3/uL [facility] Lymphocytes Absolute Auto 1.5 1.2 - 4.9 X10*3/uL [facility] Monocytes Absolute Auto 0.8 0.1 - 1.2 X10*3/uL [facility] Eosinophils Absolute Auto 0.2 0.0 - 0.4 X10*3/uL [facility] Basophils Absolute Auto 0.1 0.0 - 0.2 X10*3/uL [facility] NRBC Abs Auto 0.000 0.0 - 0.012 X10*3/uL [facility] 01/25/2025 8:44 AM EDT 01/25/2025 2:37 PM EDT us Generic External Data Provider LAB BLOOD ORDERAB LES Edited Result - Final Performing Organization Address [facility]/ZIP Co de Phone Number [facility] [address] [place] [phone] [phone] * Sed Rate by Modified Westergren (01/25/2025 8:44 AM EDT) Erythrocyte Sedimentation Rate 16 0 - 20 MM/HR [facility] Comment:Patients with polycy themia and many hemoglobin abnormalitiesmay have depressed sed rates whereas patients with anemiamay have elevated sed rates. 01/25/2025 8:44 AM EDT 01/25/2025 2:37 PM EDT us Generic External Data Provider LAB BLOOD ORDERAB LES Final Result Performing Organization Address [facility] Co de Phone Number [facility] [address] [place] [phone] * C-reactive Protein (01/25/2025 8:44 AM EDT) Pathologist [facility] C Reactive Protein 0.12 < or = 0.50 mg/dL [facility] 01/25/2025 8:44 AM EDT 01/25/2025 2:37 PM EDT us Generic External Data Provider LAB BLOOD ORDERAB LES Final Result Performing Organization Address [facility] Co de Phone Number [facility] [address] [place] [address] [phone] * (ABNORMAL) Comprehensive Metabolic Panel (01/25/2025 8:44 AM EDT) Pathologist [facility] Sodium 142 135 - 145 mmol/L [facility] Potassium 3.7 3.3 - 5.1 mmol/L [facility] Chloride 108 96 - 108 mmol/L [facility] Carbon Dioxide 28 22 - 29 mmol/L [facility] Anion Gap 10(L) 12 - 20 [facility] Urea Nitrogen (BUN) 19(H) 9 - 16 mg/dL [facility] Creatinine, Serum 0.93 0.5 - 1.4 mg/dL [facility] Estimated Glomerular Filt Rate 59 [facility] Comment:Chronic Kidney Disea se: Estimated GFR < 60 mL/min/1.61p8Rdwpsb Kidney Disease: Estimated GFR < 15 mL/min/1.73m2 Glucose 68 60 - 115 mg/dL [facility] Calcium 9.3 8.4 - 10.2 mg/dL [facility] Bilirubin, Total 0.3 0.0 - 1.0 mg/dL [facility] Aspartate Amino Transferase 27 5 - 31 U/L [facility] Alanine Aminotransferase 11 0 - 31 U/L [facility] Total Protein 6.9 6.5 - 8.0 g/dL [facility] Albumin Level 3.5 3.5 - 5.0 g/dL [facility] Alkaline Phosphatase 121(H) 39 - 117 U/L [facility] 01/25/2025 8:44 AM EDT 01/25/2025 2:37 PM EDT us Generic External Data Provider LAB BLOOD ORDERAB LES Final Result Performing Organization Address City/State/[facility] Co de Phone Number [facility] [address] [place] [phone] * (ABNORMAL) POCT HGB A1C (11/27/2024 9:17 AM EDT) Hemoglobin A1C 8.2(A) 4.0 - 6.0 % QC Media Lot # [id number] Lot# Expiration Date Blood 11/27/2024 9:17 AM EDT us Gavi Aldana DO POINT OF CARE TEST ENTER/DIAMANTE T ORDERABLES Final Result * Hepatitis Panel, General (09/04/2024 9:02 AM EDT) Hepatitis A IgM Nonreactive Nonreactive [facility] Comment:IgM antibodies to MCCANN V not detected; does not exclude earlyacute or recovered HAV infection. ~Hepatitis B Surface Antibody REACTIVE Nonreactive [facility] Comment:REACTIVE: > 11.99 mI U/mL Hepatitis B Core Antibody Nonreactive Nonreactive [facility] Hepatitis C Antibody Nonreactive Nonreactive [facility] Comment:Antibodies to HCV no t detected; does not exclude early acuteHCV infection. Hepatitis B Surface Ag Negative Negative [facility] 09/04/2024 9:02 AM EDT 09/04/2024 9:02 AM EDT us Generic External Data Provider LAB BLOOD ORDERAB LES Final Result Performing Organization Address City/State/[facility] Co de Phone Number [facility] [address] [place] [phone] * Lipid Panel, Standard (09/20/2023 7:27 AM EDT) Triglycerides 96 <150 mg/dL [facility] Comment:Desirable Triglyceri de: less than 150 mg/dLBorderline High Triglyceride 150-199 mg/dLHigh Triglyceride: 200-499 mg/dLVery High Triglyceride: greater than or equal to 5OO mg/dL Cholesterol 139 <200 mg/dL [facility] Comment:Desirable Cholestero l: less than 200 mg/dLBorderline High Cholesterol: 200-239 mg/dLHigh Cholesterol: greater than 239 mg/dL LDL Cholesterol Calculated 69 <100 mg/dL [facility] Comment:Desirable LDL: less than 100 mg/dLNear Optimal/Above Optimal LDL: 110- 129 mg/dLBorderline High LDL: 130-159 mg/dLHigh LDL: 160-189 mg/dLVery High LDL: greater than or equal to 190 mg/dL HDL Cholesterol 51 >40 mg/dL [facility] Comment:Desirable HDL: great er than 40 mg/dL Note: This HDL assay may give artificially low results in patients with liver disease. Blood Venous blood specimen / Unknown 09/20/2023 7:27 AM EDT 09/20/2023 7:27 AM EDT Gavi Aldana DO LAB BLOOD ORDERABLES Final R esult Performing Organization Address City/[facility]/ZIP Co de Phone Number [facility] [address] [place] [address] [phone] * (ABNORMAL) Albumin, Random Urine W/Creatinine (09/20/2023 7:23 AM EDT) Creatinine, Urine 211.65 mg/dL [facility] Microalbumin Urine 817.0 mg/L [facility] Microalbum Creatinine Ratio Ur 386.0(H) <30 ug/mg cr [facility] Comment:Albumin/Creatinine R atio Reference Ranges: Normal: < 30 ug/mg creatinine Microalbuminuria: 30 - 300 ug/mg creatinineClinical Albuminuria: > 300 ug/mg creatinine Urine (Urine, Random) 09/20/2023 7:23 AM EDT 09/20/2023 7:41 AM EDT Gavi Aldana DO LAB URINE ORDERABLES Final R esult Performing Organization Address City/[facility]/ZIP Co de Phone Number [facility] [address] [place] [phone] * Colonoscopy (07/28/2021 2:52 PM EST) Historical Provider HEALTH MAINTENANCE Final Result from Last 3 Months or Most Recently Relevant to Health Maintenance Insurance [employer] (O D-SNP) [facility] - [facility] Care Teams Enrollment Management Manager Relationship Specialty Start Date End Date Gavi Aldana DO [address] [place] [address] PCP - General Family Medicine 06/06/18
--- OUTSIDE RECORDS SUMMARY | 2025-04-16 08:47 | XMS_ITS | Encounter Summary ---
Author Organization [employer] Address [address] [place] [address] [address] [place] [address] Care Team Providers Care Plastic Straightening Roll Operator Name Role Phone Gavi Aldana DO Primary Care Provider [phone] Encounter Details Date Type Department Care Team (Late Contact Info) Description 12/14/2022 Orders Only [facility] CHC MED & PEDS [address] [place] [address] Gavi Duarte LPN Social History Tobacco Use [...] Description 05/13/2025 10:00 AM EST Office Visit [facility] ADULT DENTAL [address] [place] [address] José Miguel Sy DDS [address] [place] [address] documented as of this encounter Visit Diagnoses Not on filedocumented in this encounter Care Teams Plastic Straightening Roll Operator Relationship Specialty Start Date End Date Gavi Aldana DO [address] [place] [address] PCP - General Family Medicine 06/06/18 documented as of this encounter
--- OUTSIDE RECORDS SUMMARY | 2025-04-16 08:47 | XMS_ITS | Data Portability ---
Author Organization [employer], [facility] Address [address] [place] [address] Assessment Encounter Date Assessment Date Assessment LastModified by Organization Details LastModified Time 03/17/2023 03/17/2023 As noted, we were called to see this patient regarding concerns of cough. Evaluation in the field was performed by my optical coating technician colleague, as noted above, I provided [...] /min 98.1 [degF] 149/88 mm[Hg] Not Available [employer] - production 3 19:40:55 Social History None recorded. Functional Status None recorded. Mental Status None recorded. Family History Nothing Reported. Medical History No medical history recorded. Gynecological HistoryNo gynecological history recorded. Obstetrics History GPAL:G 0 P 0 0 0 0 Past Encounters Encounter ID Performer Location Encounter Start Date Encounter Closed Date Diagnosis/Indication Diagnosis SNOMED-CT Code Diagnosis ICD10 Code Diagnosis IMO Codes Diagnosis Note [id number] Amprao Marley MD [address] [phone] 03/17/2023 19:40:50 03/17/2023 19:55:52 Health Concerns Section Related Observation LastModified by Organization Detai ls LastModified Time None Recorded Concern Status LastModified by Organization Details LastModified Time None Recorded Advance Directives Directive None Recorded Payers Insurance Date Sequence Insurance Name Policy Number Policy Ivy Covered Member ID Ivy Member ID Guarantor Name 05/05/2024 1 [facility] - DOS ON OR AFTER 2022 - DUAL ELIGIBLE - SENIOR LIVING OPTIONS AND ONE CARE (MEDICARE REPLACEMENT/ADV ANTAGE - HMO) Candi Sanchez [id number] Candi Sanchez Notes Date Note Type Note [...] CRC RN DID NOT NEED FURTHER INFO [facility] HPI: 3 weeks, sore throat throughout, cough throughout. dry cough. has never had something like this before. some sour taste, depending on what she ate. no abdominal, a little epigastric burning. Saw provider, got tessalon perles, initially helpful but then. 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 Amparo Marley MD [address] [facility], [place], [address], [employer] - [employer] 03/17/2023 19:55:51 OBGyn Episode No OBEpisode recorded.
--- OUTSIDE RECORDS SUMMARY | 2025-04-16 08:47 | XMS_ITS | Encounter Summary ---
Author Organization [facility] Address [address] [place] [address] [address] [place] [address] Care Team Providers Care Assistant Chief Engineer Name Role Phone Gavi Aldana DO Primary Care Provider [phone] Encounter Details Date Type Department Care Team (Latest Contact Info) Description 03/10/2022 Abstract [facility] CONVERSIONS Dental, Provider, DDS Social History [...] Description 05/13/2025 10:00 AM EST Office Visit [facility] ADULT DENTAL [address] [place] [address] José Miguel Sy DDS [address] [place] [address] documented as of this encounter Visit Diagnoses Not on filedocumented in this encounter Care Teams Assistant Chief Engineer Relationship Specialty Start Date End Date Gavi Aldana DO [address] [place] [address] PCP - General Family Medicine 06/06/18 documented as of this encounter
--- OUTSIDE RECORDS SUMMARY | 2025-04-16 08:47 | XMS_ITS | Encounter Summary ---
Author Organization [employer] Address [address] [place] [address] [address] [place] [address] Care Team Providers Care Safety And Security Manager Name Role Phone Gavi Aldana Primary Care Provider + [phone] Reason for Visit * Reason Onset Date Comments rs same day cx/no show 12/03/2024 Encounter Details Date Type Department Care Team ([facility] st Contact Info) Description 12/03/2024 Telephone [facility] ADULT DENTAL [address] [place] [address] José Miguel Sy DDS [address] [place] [address] rs same day cx/no show Social History [...] Description 05/13/2025 10:00 AM EST Office Visit [facility] ADULT DENTAL [address] [place] [address] José Miguel Sy DDS [address] [place] [address] documented as of this encounter Visit Diagnoses Not on filedocumented in this encounter Additional Health Concerns Assessment Noted Time PHQ-9 Depression Total Score: 2 11/28/19 25 9:14 AM EDT documented as of this encounter Care Teams Safety And Security Manager Relationship Specialty Start Date End Date Gavi Aldana DO [address] [place] [address] PCP - General Family Medicine 06/06/18 documented as of this encounter
--- OUTSIDE RECORDS SUMMARY | 2025-04-16 08:47 | XMS_ITS | Data Portability ---
Author Organization [place] - [facility], Allergy Address [address] [address] Care Team Providers Care Chief Drafter Name Role Phone MARTINEZ VIZCARRA Primary Care Provider [phone] Assessment Encounter Date Assessment Date Assessment LastModified [...] copy of the audiogram, a list of [facility] hearing aid providers, and medical clearance [...] Organization Details Recorded Time Dizziness and giddiness 750304622 Active 2018 Dizziness and giddiness ; Note: Date Diagnosed : 01/25/2019 11:02 AM (R42) Not Available [facility] 4 02:39:47 Impacted cerumen of bilateral ears 82885679260 65344 Active 2018 Impacted cerumen, bilateral ; Note: Date Diagnosed : 01/25/2019 11:05 AM (H61.23) Not Available [facility] 4 02:39:43 Bilateral tinnitus 57408909770 02 Active 2018 Tinnitus, bilateral ; Note: Date Diagnosed : 01/25/2019 11:24 AM (H93.13) Not Available [facility] 4 02:39:43 Benign paroxysma l positiona l vertigo 458178189 Active 2018 Benign paroxysma l vertigo, unspecifi ed ear; Note: Date Diagnosed : 01/25/2019 11:03 AM (H81.10) Not Available [facility] 4 02:39:53 Sensorine ural hearing loss of bilateral ears 603117321 Active 2018 Sensorine ural hearing loss, bilateral ; Note: Date Diagnosed : 01/25/2019 11:24 AM (H90.3) Not Available [facility] 4 02:39:48 Cough 53752035 Active 2020 Cough, unspecifi ed; Note: Changed from R05 to R05.9 ( 4 9:23 AM) , Date Diagnosed : 02/11/2021 10:17 AM (R05) WYATT NAVA MD [address] [place] [address], [place], [address] , [facility] - [facility] 4 10:02:57 Allergic rhinitis 20392759 Active 2023 Allergic rhinitis, unspecifi ed; Note: Date Diagnosed : 08/01/2023 10:25 AM (J30.9) Not Available [facility] 02:39:50 Nasal congestio n 03625827 Active 2023 Nasal congestio n; Note: Date Diagnosed : 08/01/2023 10:25 AM (R09.81) Not Available [facility] 02:39:53 Gastroeso phageal reflux disease without esophagit is 624225405 Active 2023 Gastro-es ophageal reflux disease without esophagit is; Note: Date Diagnosed : 08/25/2023 10:32 AM (K21.9) Not Available [facility] 02:39:48 Problem Notes None recorded. Procedures Surgical History Date Name Laterality Status Provider Name and Address Organization Details Recorded Time 07/30/19 25 Wax_DP completed WYATT NAVA MD [address] [place] [address], [phone], [facility] 07/30/2024 08:53:51 07/30/19 25 Air only Audio - 32520 completed JENA SALES [address], [address], [facility] 07/30/2024 09:17:09 07/30/19 25 Tympanometry - 36060 completed JENA [employer]ES [address], [address], [facility] 07/30/2024 09:17:15 Imaging Results None recorded. [...] mg tablet 04/27 completed Medicati on ID: [id number] B rand Name: atorvast atelijah Sen d Method: E-Prescr ibed Sub s Allowed: subs OK Speci al Instruct ion: TOME PRAVEEN TABLETA TODOS LOS D AL ACOSTARS E Medica tionGene ricName: atorvast atin Not Available Not Available Not Available Vitamin C 500 mg tablet active Medicati on ID: [id number] B rand Name: Vitamin C Send Method: [...] layed release 02/11 completed Medicati on ID: [id number] D uration Value: 90 Brand Name: aspirin Send Method: E-Prescr ibed Sub s Allowed: subs OK Speci al Instruct ion: TOME PRAVEEN TABLETA POR V?A ORAL TODOS LOS D? Med icationG enericNa me: aspirin Not Available Not Available Not Available tramadol 50 mg tablet active Medicati on ID: [id number] B rand Name: tramadol Send Method: E-Prescr ibed Sub s Allowed: subs OK Medic ationGen ericName : tramadol Not Available Not Available Not Available spironola ctone 25 mg tablet active Medicati on ID: [id number] B rand Name: spironol actone S end [...] 10 mg tablet active Medicati on ID: [id number] B rand Name: baclofen Send Method: E-Prescr ibed Sub s Allowed: subs OK Speci al Instruct ion: TAKE 1 TABLET BY MOUTH 3 TIMES EVERY DAY NEEDED FOR MUSCLE SPASM/PA IN Medic [facility] ericName : baclofen Not Available Not Available Not Available benzonata te 100 mg capsule TAKE 1 CAPSULE BY MOUTH THREE TIMES DAILY NEEDED FOR COUGH active Not Available Not Available No t Available pantopraz ole 40 mg tablet,de layed release active Medicati on ID: [id number] B rand Name: pantopra zole Sen d Method: E-Prescr ibed Sub s Allowed: subs OK [facility] ericName : pantopra zole Not Available Not Available Not Available ferrous sulfate 325 mg (65 mg iron) tablet 04/27 completed Medicati on ID: [id number] B rand Name: ferrous sulfate Send Method: E-Prescr ibed Sub s Allowed: subs OK Doroni al Instruct ion: TOME PRAVEEN TABLETA HA [...] mg tablet 02/11 completed Medicati on ID: [id number] D uration Value: 90 Brand Name: metoprol [...] (0.125 mg) tablet active Medicati on ID: [id number] B rand Name: digoxin Send Method: E-Prescr [...] mg capsule 02/11 completed Medicati on ID: [id number] B rand Name: gabapent in Send Method: E-Prescr ibed Sub s Allowed: subs OK Medic ationGen ericName : gabapent in Not Available Not Available Not Available Novolog U-100 Insulin aspart 100 unit/mL subcutane ous solution active Medicati on ID: 435693 B rand Name: Novolog U-100 Insulin aspart S end Method: E-Prescr ibed Sub s Allowed: subs OK Speci al Instruct ion: UP TO 100 UNITS VIA INSULIN PUMP SUBCUT DAILY Me dication GenericN norma: Novolog U-100 Insulin aspart Not Available Not Available Not Available nystatin 100,000 unit/gram topical powder 04/27 completed Medicati on ID: [id number] B rand Name: nystatin Send Method: E-Prescr ibed Sub s Allowed: subs OK Speci al Instruct ion: APLIQUE AL LIAT AFECTADA DOS VECES AL D A Medica tionGene ricName: nystatin Not Available Not Available Not Available albuterol sulfate HFA 90 mcg/actua tion aerosol inhaler 02/11 completed Medicati on ID: [id number] B rand Name: albutero l sulfate Send Method: E-Prescr ibed Sub s Allowed: subs OK Speci al Instruct ion: TOME DOS INHALACI ONES POR V A ORAL CADA CUATRO A SEIS HORAS CUANDO SEA NECESARI O Medica tionGene ricName: albutero l sulfate Not Available Not Available Not Available fluticaso ne propionat e 50 mcg/actua tion nasal spray,lalo pension active Medicati on ID: 163602 B rand Name: fluticas one propiona te [...] 40 mg tablet active Medicati on ID: 174776 B rand Name: valsarta n Send Method: [...] mg-50 mg tablet active Medicati on ID: 927175 B rand Name: Senna Plus Sen d [...] ion nasal spray active Medicati on ID: [id number] B rand Name: Narcan S end Method: [...] pen injector 02/11 completed Medicati on ID: [id number] D uration Value: 30 Brand Name: Ozempic [...] Available Not Available Not Available Dexcom G7 Prop Attendant USE DIRECTED active Not Available Not Available [...] Updated DateTime 07/30/2024 149.86 cm 26.7 kg/m2 75954.19 g Nash [place] - [facility] 07/30/2024 08:41:37 Date Recorded Body height Body mass index (BMI) Body weight Provider Name and Address Organization Details Last Updated DateTime 04/27/2024 149.86 cm 26.7 kg/m2 66208.19 g Susy Vera [place] - [facility] 04/27/2024 09:48:20 Social History None recorded. Functional Status None recorded. Mental Status None recorded. Family History Nothing Reported. Medical History Condition Response Diabetes Y Gynecological HistoryNo gynecological history recorded. Obstetrics History GPAL:G 0 P 0 0 0 0 Past Encounters Encounter ID Performer Location Encounter Start Date Encounter Closed Date Diagnosis/Indication Diagnosis SNOMED-CT Code Diagnosis ICD10 Code Diagnosis IMO Codes Diagnosis Note [id number] WYATT NAVA MD [facility] [address] [phone] 04/27/2024 09:29:27 04/27/2024 10:08:17 Cough 68317397 R05.9 Sensorineu ral hearing loss of bilateral ears 421026483 H90.3 [id number] WYATT NAVA MD [facility] [address] [address] 07/30/2024 08:36:37 07/30/2024 09:43:52 Sensorineural hearing loss of bilateral ears 213269260 H90.3 Audiologic al evaluation results: Right ear: Mild sloping to severe sensorineu ral hearing loss Left ear: Mild sloping to severe sensorineu ral hearing loss Tympanomet ry: Right Ear:Type As Left Ear:Type As Impacted c erumen of bilateral ears 7001083705 227111 H61.23 Ears were meticulous ly cleaned bilaterall [...] Ivy Member ID Guarantor Name 04/27/2024 1 [facility] (MEDICARE REPLACEMENT/ADV ANTAGE - HMO) Candi Campbell Sanchez [id number] Candi Sanchez 05/02/2024 2 [facility] [facility] [place] ([place]IC[place]PLAC[place]/ADV ANTAGE - HMO) Candi Sanchez [id number] Candi Sanchez 07/30/2024 1 [facility] - DOS ON OR AFTER 2022 - DUAL ELIGIBLE - MEDICARE ADVANTAGE [place] (MEDICARE REPLACEMENT/ADV ANTAGE - HMO) Candi Campbell Sanchez [id number] Candi Sanchez 02/25/2025 1 [facility] - DOS ON OR AFTER 2022 - RETIREMENT OPTIONS (MEDICARE REPLACEMENT/ADV ANTAGE - HMO) Candi Sanchez [id number] Candi Sanchez Notes Date Note Type Note Provider Name and Address Organization Details Recorded Time 04/27/2024 text/html ROS as noted in the HPI ipad - spanishcoughuses some pills from her pulmonologistnow barely has a coughalso feels stomach acid is minimally present.reports some dry mouth - doesnt drink much water during day PV 08/25/23 Iris, dry cough onset 06/2023. reflux daily. FOL - normal. EGD May 2023 with 'bacteria in stomach' took 2 pills. Rx famotidine WYATT NAVA MD [address] [place] [address], [phone], [facility] - [facility] 04/27/2024 10:06:17 07/30/2024 text/html IPad - Spanishhearing lossdid not pursue hearing aids in past year 08/01/23 Dr Kern audiomild sloping to severe B SNHLcleared for B HAE PV 04/27/24 Iris - cough - improved with meds from pulm WYATT NAVA MD [address] [place] [address],[address], [address], [facility] - [facility] 07/30/2024 09:42:27 OBGyn Episode No OBEpisode recorded.
--- OUTSIDE RECORDS SUMMARY | 2025-04-16 08:47 | XMS_ITS | Encounter Summary ---
Author Organization [facility] Address [address] [place] [address] [address] [address] Care Team Providers Care Staff Forester Name Role Phone Gavi Aldana DO Primary Care Provider [phone] Encounter Details Date Type Department Care Team (Latest Contact Info) Description 09/25/2018 Abstract [facility] CONVERSIONS Dental, Provider, DDS Social [...] Description 05/13/2025 10:00 AM EST Office Visit [facility] ADULT DENTAL [address] [place] [address] José Miguel Sy DDS [address] [place] [address] documented as of this encounter Visit Diagnoses Not on filedocumented in this encounter Care Teams Staff Forester Relationship Specialty Start Date End Date Gavi Aldana DO [address] [place] [address] PCP - General Family Medicine 06/06/18 documented as of this encounter
--- OUTSIDE RECORDS SUMMARY | 2025-04-16 08:47 | XMS_ITS | Clinical Summary ---
Author Organization 175 [facility] Address [address] [place] [address] Phone Care Team Providers Care Hearing Aid Fitter Name Role Phone SamanthaGavi davis Ej [place] Primary Care Provider [phone] Allergies Active Allergy Reactions Criticality Noted Date [...] (diabetes mellitus , type 2) (CMS/HCC V24, CMS/[facility] V28) 07/28/2011 Hyperlipidemia with target LDL less than 70 07/08 Overview (05/02/2024): IMO update Hypertension 07/28/2011 Non-ischemic cardiomyopathy ([facility] V24, [facility] V28) 07/28/2011 Encounters Date Type Department Care Team Description 03/04/2025 8:45 AM EDT Office Visit Orthopedic Surgery [facility] [address] [facility] [address] [place] [phone] Kota De La Torre, DPRah Tinea pedis of both feet (Primary Dx); Dermatophytosis of nail; Primary osteoarthritis of both feet; Type II diabetes mellitus with peripheral circulatory disorder ([facility]/HCC V24, CMS/HCC V28); Diabetic mononeuropathy simplex ([facility] V24, CMS/HCC V28); Peripheral venous insufficiency; Pain in toe of right foot; Pain in toe of left foot 02/20/2025 9:00 AM EDT Consult Vascular Surgery [facility] [address] [place] [phone] Tiffanie Holbrook MD Varicose veins of both legs with edema (Primary Dx); Peripheral venous insufficiency from Last 3 Months Social History Tobacco [...] Care Team (Late st Contact Info) Description 05/27/2025 10:00 AM EST Appointment [facility] Ultrasound [address] [place] [phone] 06/03/2025 9:15 AM EST Office Visit [facility] [place] [address] [facility] [address] [place] [address] Kota De La Torre DPM 175 [facility] [address] [place] [address] 06/13/2025 3:00 PM EST Office Visit [facility] [place] [address] [place] [phone] Tiffanie Holbrook MD [address] [place] [address] Health Maintenance Due Date Last Done Comments [...] patient's age to complete this topic Insurance [facility] Member Subscriber Plan / Payer (Ef fective 2014-Present) Name:Candi Sanchez Relation to Subscriber:Self Name:Candi Sanchez Payer ID:[id number] Group ID:[id number] Type:Not on file Address: [place] [address] [address] [phone] Care Teams Hearing Aid Fitter Relationship Specialty Start Date End Date Gavi Aldana DO [address] [place] [address] PCP - General Internal Medicine 10/27/11
--- OUTSIDE RECORDS SUMMARY | 2025-04-16 08:47 | XMS_ITS | Encounter Summary ---
Author Organization [employer] Address [address] [facility] 7[address] [place] [address] Care Team Providers Care Architectural Model Maker Name Role Phone Gavi Aldana Primary Care Provider [phone] Reason for Visit * Reason Onset Date Comments rs cancelled appt 02/22/2025 Encounter Details Date Type Department Care Team ([facility] st Contact Info) Description 02/22/2025 Telephone [facility] ADULT DENTAL [address] [place] [address] José Miguel Sy DDS [address] [place] [address] rs cancelled appt Social History Tobacco Use [...] would like to reschedule cancelled appt for anglican with Susan. Yossi morning appt. Please reach out to patient documented in this encounter Plan of Treatment Upcoming Encounters Date Type Department Care Team (Late st Contact Info) Description 05/13/2025 10:00 AM EST Office Visit [facility] ADULT DENTAL [address] [place] [address] José Miguel Sy DDS [address] [place] [address] documented as of this encounter Visit Diagnoses Not on filedocumented in this encounter Additional Health Concerns Assessment Noted Time PHQ-9 Depression Total Score: 2 11/28/19 25 9:14 AM EDT documented as of this encounter Care Teams Architectural Model Maker Relationship Specialty Start Date End Date Gavi Aldana DO [address] [place] [address] PCP - General Family Medicine 06/06/18 documented as of this encounter
[2025-04-16 09:00] VITALS: BP 142/70; PULSE 69; O2SAT 96; BMI 24.6
[2025-04-16 09:14] LABS: Glucose, Whole Blood 205 mg/dL (60-115)
== END 2025-04-16 10:03 | disposition home or self-care (01) ==
LOC: HO.ENCR 08:37
PROVIDERS: PCP Family Medicine; Visit Provider Student in an Organized Health Care Education/Training Program
DX: E10.65 Type 1 diabetes mellitus with hyperglycemia (principal); E04.1 Nontoxic single thyroid nodule
CPT/HCPCS: 99214

== ENCOUNTER → 2025-04-16 08:36 | Outpatient (BNVA) | payer OTHER, SELFPAY | PROVIDERS: PCP Family Medicine; Visit Provider Student in an Organized Health Care Education/Training Program | DX: E10.65 Type 1 diabetes mellitus with hyperglycemia (principal); E04.1 Nontoxic single thyroid nodule | CPT/HCPCS: 82947; 99212 ==

== ENCOUNTER 2025-04-19 08:15 | Outpatient (REF) | payer OTHER, SELFPAY ==
--- OUTSIDE RECORDS SUMMARY | 2025-04-19 08:23 | XMS_ITS | Clinical Summary ---
Author Organization 175 [facility] Address [address] [place] [address] Phone Care Team Providers Care Founder Ceo & President Name Role Phone SamanthaGavi davis Ej [place] Primary Care Provider [phone] Allergies Active Allergy Reactions Criticality Noted Date [...] (diabetes mellitus , type 2) (CMS/HCC V24, CMS/[facility] V28) 07/28/2011 Hyperlipidemia with target LDL less than 70 07/08 Overview (05/02/2024): IMO update Hypertension 07/28/2011 Non-ischemic cardiomyopathy ([facility] V24, [facility] V28) 07/28/2011 Encounters Date Type Department Care Team Description 03/04/2025 8:45 AM EDT Office Visit Orthopedic Surgery [facility] [address] [facility] 250 [place] [phone] Kota De La Torre, DPRah Tinea pedis of both feet (Primary Dx); Dermatophytosis of nail; Primary osteoarthritis of both feet; Type II diabetes mellitus with peripheral circulatory disorder ([facility]/HCC V24, CMS/HCC V28); Diabetic mononeuropathy simplex ([facility] V24, CMS/HCC V28); Peripheral venous insufficiency; Pain in toe of right foot; Pain in toe of left foot 02/20/2025 9:00 AM EDT Consult Vascular Surgery [facility] [address] [place] [phone] Tiffanie Holbrook MD Varicose veins of both [...] Info) Description 05/27/2025 10:[address] [facility] Ultrasound [address] [place] [phone] 06/03/2025 9:15 AM EST Office Visit [facility] [place] [address] [facility] [address] [place] [address] Kota De La Torre DPM 175 [facility] [address] [place] [address] 06/13/2025 3:00 PM EST Office Visit [facility] [place] [address] [place] [phone] Tiffanie Holbrook MD [address] [place] [address] Health Maintenance Due Date Last [...] patient's age to complete this topic Insurance [facility] Member Subscriber Plan / Payer (Ef fective 2014-Present) Name:Candi Sanchez Relation to Subscriber:Self Name:Candi Sanchez Payer ID:[id number] Group ID:[id number] Type:Not on file Address: [place] [address] [address] [phone] Care Teams Founder Ceo & President Relationship Specialty Start Date End Date Gavi Aldana DO [address] [place] [address] PCP - General Internal Medicine 10/27/11
--- OUTSIDE RECORDS SUMMARY | 2025-04-19 08:23 | XMS_ITS | Clinical Summary ---
Author Organization [employer] Address [address] [place] [address] 7[address] [place] [address] Care Team Providers Care Welding Machine Operator Helper Gas Name Role Phone Gavi Aldana DO Primary Care Provider [phone] Allergies Active Allergy Reactions Criticality Noted Date Comments Luis A Inhibitors Cough,Hives 08/10/2010 Medications Skin Protectants, Misc. (Minerin Creme) creamIndicati ons:Dry skin APPLY TO DRY SKIN 2 TO 3 TIMES PER DAY 454 g 4 06/22/19 23 Active Skin Protectants, Misc. (eucerin) cream apply topically to dry skin 2-3times a day 09/24/19 22 Active Nystop 253704 UNIT/GM powder APPLY TO THE AFFECTED AREA(S) [...] the morning. 10/12/19 Active UltiCare Short Pen [place] 31G X 8 MM misc USE DIRECTED [...] Essential hypertension 09/08/2022 Hyperlipidemia 09/08/2022 Nonischemic cardiomyopathy ([facility]) 09/08/2022 Seropositive rheumatoid arthritis ([facility]) 04/10/2022 Chronic left shoulder pain 09/08/2022 Chronic right shoulder pain 09/08/2022 Immune thrombocytopenic purpura ([facility]) 2022 Eczema 09/08/2022 AICD (automatic cardioverter/defibrillator) pres ent 09/08/2022 Chronic systolic heart failure 09/08/2022 Paroxysmal atrial flutter ([facility]) 09/08/2022 Chronic gastroesophageal reflux disease 09/09/19 23 [...] reports she was exposed to Covid-19 at [employer] but she always wears a mask Physical exam wnl Rapid strep, Covid and Flu negative Plan: supportive measures, recommended Tylenol prn, pt to test at home if symptoms do not improve or worsen and notify us if positive or worsening of symptoms Pt verbalized understanding Encounters Date Type Department Care Team Description 04/16/2025 Orders Only GENERIC EXTERNAL DATA DEPARTMENT Provider, Generic External Data 04/02/[address] [facility] MEDICINE [address] [place] [address] Gavi Aldana DO 03/29/2025 8:00 AM EDT Office Visit [facility] ADULT DENTAL [address] [place] [address] José Miguel Sy DDS Dental caries (Primary Dx); Open fracture of tooth, initial encounter 03/25/[address] [facility] CHC MED & PEDS [address] [place], [place] [phone] Candi Loaiza MD Acute pain of right shoulder 02/22/[address] [facility] ADULT DENTAL [address] [place] [address] José Miguel Sy DDS rs cancelled appt [...] Description 05/13/2025 10:00 AM EST Office Visit [facility] ADULT DENTAL [address] [place] [address] José Miguel Sy DDS [address], [place] [phone] Health Maintenance Due Date Last Done Comments [...] Associated Diagnosis Comments GLUCOSE, WHOLE BLOOD Routine 04/16/2025 9:03 AM EST CASE PRESENTATION, DETAILED AND EXTENSIVE [...] EDT Type 1 diabetes mellitus without complication ([facility]/HCC) HEPATITIS PANEL, GENERAL Routine 09/04/2024 9:02 AM [...] complication, with long-term current use of insulin ([facility]) ALBUMIN, RANDOM URINE W/CREATININE Routine 09/20/2023 7:23 AM EDT Type 2 diabetes mellitus without complication, with long-term current use of insulin ([facility]) PROPHYLAXIS - ADULT Routine 03/10/2022 1 2:00 AM EDT INTRAORAL - COMPLETE SERIES OF RADIOGRAPHIC IMAGES Routine 03/10/2022 12:00 AM EDT HM COLONOSCOPY Routine 07/28/2021 2:52 PM EST from Last 3 Months or Most Recently Relevant to Health Maintenance Results * (ABNORMAL) Glucose, Whole Blood (04/16/2025 9:03 AM EST) Only the most recent of2 resultswithin the time period is included. Glucose, Whole Blood 205(H) 60 - 115 mg/dL [facility] Comment:METER #: [id number] 0Testing performed in the Endocrinology Department [address] , [address], [place]. 04/16/2025 9:03 AM EST 04/16/2025 9:14 AM EST us Generic External Data Provider LAB BLOOD ORDERAB LES Final Result [facility] [address] [place] [address] [phone] * Cytopath-cell enhanced (02/18/2025 4:53 PM EDT) 02/18/2025 4:53 PM EDT 02/20/2025 11:20 AM EDT Narrative [facility] - 02/24/2025 3:47 PM EDT ----- ------- Name: Daniel MuellerCandi Age/Sex: 74/F : 1950 Unit#: [id number] Attend Dr: Nallely Baca [facility] Re02/18/25 Status: [facility] REF Location: .LAB Disch: ----- ------- SPEC : [id number] RECD: 02/20/25 STATUS: PABLO PEREZ NUM: [id number] MILAN: 02/18/25-[address] [facility] DR: Nallely Baca [facility]- ENTERED: 02/20/25-6 SP TYPE: Cytology OT DR: Gavi Aldana DO ORDERED: Cyto-enhanced Diagnosis [...] developed and their performance characteristics determined by [facility]. They have not been cleared or approved by the U.S. Food and Drug Administration (FDA). However, the FDA has determined that such clearance or approval is not necessary. This laboratory is certified under the Clinical Laboratory Improvement Amendments of 1988 (CLIA) as qualified to perform high complexity clinical laboratory testing. Copies To: Gavi Aldana DO [address] [phone] Nallely Baca [facility] [address] [place] [address] [address] [place], [place] [phone] [email or web address] CONTINUED ON NEXT PAGE ----- ------- Name: Candi Solomon Age/Sex: 74/F : 1950 Unit#: [id number] Attend Dr: Nallely Baca [facility] Re02/18/25 Status: DEP REF Location: .LAB Disch: ----- ------- SPEC : [id number] RECD: 09/ STATUS: PABLO PEREZ NUM: [id number] MILAN: 02/18/[address] [facility] DR: Nallely Baca [facility]- ENTERED: 02/20/25 SP TYPE: Cytology OTHR DR: Gavi Aldana DO ORDERED: Cyto-enhanced ----- ------- Signed (signature on file) Arlin Ogden MD 02/24/25 1547 ----- ------- END OF REPORT Generic External Data Provider LAB CYTOLOGY ORDE RABLES Final Result Performing Organization Address [facility]/ZIP Co de Phone Number [facility] [address] [place] [phone] * Slide Review (01/25/2025 8:44 AM EDT) Slide Review VERIFIED [facility] 01/25/2025 8:44 AM EDT 01/25/2025 2:37 PM EDT Generic External Data Provider LAB BLOOD ORDERAB LES Final Result Performing Organization Address [facility]/ZIP Co de Phone Number [facility] [address] [place] [phone] * (ABNORMAL) CBC auto differential (01/25/2025 8:44 AM EDT) White Blood Count 7.8 4.8 - 10.8 X10*3/uL [facility] Red Blood Count 4.83 4.20 - 5.50 X10*6/uL [facility] Hemoglobin 11.1(L) 12.0 - 16.0 g/dl [facility] Hematocrit 36.7(L) 37.0 - 47.0 % [facility] Mean Corpuscular Volume 76.0(L) 80.0 - 98.0 fL [facility] Mean Corpuscular Hemoglobin 23.0(L) 27.0 - 33.0 pg [facility] Mean Corpuscular HGB Conc 30.2(L) 31.0 - 35.0 g/dl [facility] Red Cell Distribution Width 15.5 11.0 - 16.0 % [facility] Platelet Count 113(L) 160 - 400 X10*3/uL [facility] Comment:Confirmed by smear. Neutrophils Percent Auto 66.5 45 - 73 % [facility] Imm Gran Pct Auto 0.3 0.0 - 0.4 % [facility] Lymphocytes Percent Auto 19.5(L) 20 - 40 % [facility] Monocytes Percent Auto 10.6 2 - 11 % [facility] Eosinophils Percent Auto 2.3 0 - 4 % [facility] Basophils Percent Auto 0.8 0 - 2 % [facility] NRBC Pct Auto 0.0 0.0 - 0.2 /100WBC [facility] Neutrophils Absolute Auto 5.2 2.0 - 8.3 x10*3/uL [facility] Imm Gran Abs Auto 0.02 0.00 - 0.03 X10*3/uL [facility] Lymphocytes Absolute Auto 1.5 1.2 - 4.9 X10*3/uL [facility] Monocytes Absolute Auto 0.8 0.1 - 1.2 X10*3/uL [facility] Eosinophils Absolute Auto 0.2 0.0 - 0.4 X10*3/uL [facility] Basophils Absolute Auto 0.1 0.0 - 0.2 X10*3/uL [facility] NRBC Abs Auto 0.000 0.0 - 0.012 X10*3/uL [facility] 01/25/2025 8:44 AM EDT 01/25/2025 2:37 PM EDT us Generic External Data Provider LAB BLOOD ORDERAB LES Edited Result - Final Performing Organization Address [facility] Co de Phone Number [facility] [address] [place] [phone] * Sed Rate by Modified Thony (01/25/2025 8:44 AM EDT) Erythrocyte Sedimentation Rate 16 0 - 20 MM/HR [facility] Comment:Patients with polycy themia and many hemoglobin abnormalitiesmay have depressed sed rates whereas patients with anemiamay have elevated sed rates. 01/25/2025 8:44 AM EDT 01/25/2025 2:37 PM EDT us Generic External Data Provider LAB BLOOD ORDERAB LES Final Result Performing Organization Address [facility] de Phone Number [facility] [address] [place] [phone] * C-reactive Protein (01/25/2025 8:44 AM EDT) C Reactive Protein 0.12 < or = 0.50 mg/dL [facility] 01/25/2025 8:44 AM EDT 01/25/2025 2:37 PM EDT us Generic External Data Provider LAB BLOOD ORDERAB LES Final Result Performing Organization Address [facility] Co de Phone Number [facility] [address] [place] [phone] * (ABNORMAL) Comprehensive Metabolic Panel (01/25/2025 8:44 AM EDT) Sodium 142 135 - 145 mmol/L [facility] Potassium 3.7 3.3 - 5.1 mmol/L [facility] Chloride 108 96 - 108 mmol/L [facility] Carbon Dioxide 28 22 - 29 mmol/L [facility] Anion Gap 10(L) 12 - 20 [facility] Urea Nitrogen (BUN) 19(H) 9 - 16 mg/dL [facility] Creatinine, Serum 0.93 0.5 - 1.4 mg/dL [facility] Estimated Glomerular Filt Rate 59 [facility] Comment:Chronic Kidney Disea se: Estimated GFR < 60 mL/min/1.11c0Rhmvmn Kidney Disease: Estimated GFR < 15 mL/min/1.73m2 Glucose 68 60 - 115 mg/dL [facility] Calcium 9.3 8.4 - 10.2 mg/dL [facility] Bilirubin, Total 0.3 0.0 - 1.0 mg/dL [facility] Aspartate Amino Transferase 27 5 - 31 U/L [facility] Alanine Aminotransferase 11 0 - 31 U/L [facility] Total Protein 6.9 6.5 - 8.0 g/dL [facility] Albumin Level 3.5 3.5 - 5.0 g/dL [facility] Alkaline Phosphatase 121(H) 39 - 117 U/L [facility] 01/25/2025 8:44 AM EDT 01/25/2025 2:37 PM EDT us Generic External Data Provider LAB BLOOD ORDERAB LES Final Result [facility] [address] [place] [phone] * (ABNORMAL) POCT HGB A1C (11/27/2024 9:17 AM EDT) Hemoglobin A1C 8.2(A) 4.0 - 6.0 % QC Media Lot # [id number] Lot# Expiration Date [id number] Blood 11/27/2024 9:17 AM EDT Gavi Aldana DO POINT OF CARE TEST ENTER/DIAMANTE T ORDERABLES Final Result * Hepatitis Panel, General (09/04/2024 9:02 AM EDT) Hepatitis A IgM Nonreactive Nonreactive [facility] Comment:IgM antibodies to MCCANN V not detected; does not exclude earlyacute or recovered HAV infection. ~Hepatitis B Surface Antibody REACTIVE Nonreactive [facility] Comment:REACTIVE: > 11.99 mI U/mL Hepatitis B Core Antibody Nonreactive Nonreactive [facility] Hepatitis C Antibody Nonreactive Nonreactive [facility] Comment:Antibodies to HCV no t detected; does not exclude early acuteHCV infection. Hepatitis B Surface Ag Negative Negative [facility] 09/04/2024 9:02 AM EDT 09/04/2024 9:02 AM EDT us Generic External Data Provider LAB BLOOD ORDERAB LES Final Result [facility] [address] [place] [phone] * Lipid Panel, Standard (09/20/2023 7:27 AM EDT) Triglycerides 96 <150 mg/dL [facility] Comment:Desirable Triglyceri de: less than 150 mg/dLBorderline High Triglyceride 150-199 mg/dLHigh Triglyceride: 200-499 mg/dLVery High Triglyceride: greater than or equal to 5OO mg/dL Cholesterol 139 <200 mg/dL [facility] Comment:Desirable Cholestero l: less than 200 mg/dLBorderline High Cholesterol: 200-239 mg/dLHigh Cholesterol: greater than 239 mg/dL LDL Cholesterol Calculated 69 <100 mg/dL [facility] Comment:Desirable LDL: less than 100 mg/dLNear Optimal/Above Optimal LDL: 110- 129 mg/dLBorderline High LDL: 130-159 mg/dLHigh LDL: 160-189 mg/dLVery High LDL: greater than or equal to 190 mg/dL HDL Cholesterol 51 >40 mg/dL [facility] Comment:Desirable HDL: great er than 40 mg/dL Note: This HDL assay may give artificially low results in patients with liver disease. Blood Venous blood specimen / Unknown 09/20/2023 7:27 AM EDT 09/20/2023 7:27 AM EDT Gavi Jovan LAB BLOOD ORDERABLES Final R esult Performing Organization Address [facility] Co de Phone Number [facility] [address] [place] [phone] * (ABNORMAL) Albumin, Random Urine W/Creatinine (09/20/2023 7:23 AM EDT) Creatinine, Urine 211.65 mg/dL [facility] Microalbumin Urine 817.0 mg/L [facility] Microalbum Creatinine Ratio Ur 386.0(H) <30 ug/mg cr [facility] Comment:Albumin/Creatinine R atio Reference Ranges: Normal: < 30 ug/mg creatinine Microalbuminuria: 30 - 300 ug/mg creatinineClinical Albuminuria: > 300 ug/mg creatinine Urine (Urine, Random) 09/20/2023 7:23 AM EDT 09/20/2023 7:41 AM EDT Gavi Aldana LAB URINE ORDERABLES Final R esult Performing Organization Address [facility] Co de Phone Number [facility] [address] [place] [phone] [phone] * Hm Colonoscopy (07/28/2021 2:52 PM EST) Historical Provider HEALTH MAINTENANCE Final Result from Last 3 Months or Most Recently Relevant to Health Maintenance Insurance DENTAL [facility] Care Teams Welding Machine Operator Helper Gas Relationship Specialty Start Date End Date Gavi Aldana DO [address] [place] [address] PCP - General Family Medicine 06/06/18
--- OUTSIDE RECORDS SUMMARY | 2025-04-19 08:23 | XMS_ITS | Encounter Summary ---
Author Organization [employer] [facility] Address [address] [place] [address] [address] [place] [address] Care Team Providers Care Net Wpf Developer Name Role Phone Gavi Aldana DO Primary Care Provider [phone] Reason for Visit * Reason Comments Med Refill Encounter Details Date Type Department Care Team ([facility] Contact Info) Description 10/11/2022 Refill [facility] MEDICINE [address] [place] [address] Gavi Aldana DO [address] [place] [address] Other chronic pain Social History Tobacco Use [...] Description 05/13/2025 10:00 AM EST Office Visit [facility] ADULT DENTAL [address] [place] [address] José Miguel Sy DDS [address] [place] [address] documented as of this encounter Visit Diagnoses Diagnosis Other chronic pain documented in this encounter Care Teams Net Wpf Developer Relationship Specialty Start Date End Date Gavi Aldana DO [address] [place] [address] PCP - General Family Medicine 06/06/18 documented as of this encounter
--- OUTSIDE RECORDS SUMMARY | 2025-04-19 08:23 | XMS_ITS | Encounter Summary ---
Author Organization [employer] Address [address] [facility] 7t [place] [address] Care Team Providers Care Plate Shear Operator Name Role Phone Gavi Aldana DO Primary Care Provider + [phone] Encounter Details Date Type Department Care Team ([facility] Contact Info) Description 04/16/2025 Orders Only GENERIC EXTERNAL DATA [...] Description 05/13/2025 10:00 AM EST Office Visit [facility] ADULT DENTAL [address] [place], [place] [phone] José Miguel Sy DDS [address] [place], [place] [phone] documented as of this encounter Procedures Procedure Name Priority Date/Time Associated Diagnosis Comments GLUCOSE, WHOLE BLOOD Routine 04/16/2025 9:03 AM EST documented in this encounter Results * (ABNORMAL) Glucose, Whole Blood (04/16/2025 9:03 AM EST) Glucose, Whole Blood 205(H) 60 - 115 mg/dL [facility] Comment:METER #: [id number] 0Testing performed in the Endocrinology Department [address] , [address], [facility]. 04/16/2025 9:03 AM EST 04/16/2025 9:14 AM EST us Generic External Data Provider LAB BLOOD ORDERAB LES Final Result [facility] [address] [place] [address] [phone] documented in this encounter Visit Diagnoses Not on filedocumented in this encounter Additional Health Concerns Assessment Noted Time PHQ-9 Depression Total Score: 2 11/28/19 25 9:14 AM EDT documented as of this encounter Care Teams Plate Shear Operator Relationship Specialty Start Date End Date Gavi Aldana DO [address] [place] [address] PCP - General Family Medicine 06/06/18 documented as of this encounter
--- OUTSIDE RECORDS SUMMARY | 2025-04-19 08:23 | XMS_ITS | Encounter Summary ---
Author Organization [facility] [facility] Address [address] [place] [address] [address] [place] [address] Care Team Providers Care Solderer Assembly Repair Name Role Phone Gavi Aldana DO Primary Care Provider [phone] Encounter Details Date Type Department Care Team (Latest Contact Info) Description 09/25/2018 Abstract [facility] CONVERSIONS Dental, Provider, DDS Social History [...] Description 05/13/2025 10:00 AM EST Office Visit [facility] ADULT DENTAL [address] [place] [address] José Miguel Sy DDS [address] [place] [address] documented as of this encounter Visit Diagnoses Not on filedocumented in this encounter Care Teams Solderer Assembly Repair Relationship Specialty Start Date End Date Gavi Aldana DO [address] [place] [address] PCP - General Family Medicine 06/06/18 documented as of this encounter
--- OUTSIDE RECORDS SUMMARY | 2025-04-19 08:23 | XMS_ITS | Encounter Summary ---
Author Organization [employer] Address [address] [facility] 7t [place] [address] Care Team Providers Care Mixer Helper Name Role Phone FlacoGavi humphreys Primary Care Provider + [phone] Encounter Details Date Type Department Care Team (Late st Contact Info) Description 09/14/2023 Orders Only [facility] MEDICINE [address] [place] [address] Provider, MD [place] Social History Tobacco Use [...] Visit [facility] ADULT DENTAL [address] [place], [place] [phone] José Miguel Sy DDS [address] [place], [place] [phone] documented as of this encounter Procedures Procedure [...] documented as of this encounter Care Teams Mixer Helper Relationship Specialty Start Date End Date Gavi Aldana DO [address] [place] [address] PCP - General Family Medicine 06/06/18 documented as of this encounter
--- OUTSIDE RECORDS SUMMARY | 2025-04-19 08:23 | XMS_ITS | Encounter Summary ---
Author Organization [employer] Address [address] [place] [address] [address] [place] [address] Care Team Providers Care Sales And Marketing Specialist Name Role Phone Gavi Aldana DO Primary Care Provider [phone] Encounter Details Date Type Department Care Team (Late Contact Info) Description 07/22/2022 Orders Only [facility] MED & PEDS [address] [place] [address] Gavi Duarte LPN Social History Tobacco Use [...] Description 05/13/2025 10:00 AM EST Office Visit [facility] ADULT DENTAL [address] [place] [address] José Miguel Sy DDS [address] [place] [address] documented as of this encounter Visit Diagnoses Not on filedocumented in this encounter Care Teams Sales And Marketing Specialist Relationship Specialty Start Date End Date Gavi Aldana DO [address] [place] [address] PCP - General Family Medicine 06/06/18 documented as of this encounter
--- OUTSIDE RECORDS SUMMARY | 2025-04-19 08:23 | XMS_ITS | Encounter Summary ---
Author Organization [employer] [facility] Address [address] [place] [address] [address] [place] [address] Care Team Providers Care Raftsman Name Role Phone Gavi Aldana DO Primary Care Provider [phone] Encounter Details Date Type Department Care Team (Latest Contact Info) Description 03/10/2022 Abstract [facility] CONVERSIONS Dental, Provider, DDS Social History [...] Description 05/13/2025 10:00 AM EST Office Visit [facility] ADULT DENTAL [address] [place] [address] José Miguel Sy DDS [address] [place] [address] documented as of this encounter Visit Diagnoses Not on filedocumented in this encounter Care Teams Raftsman Relationship Specialty Start Date End Date Gavi Aldana DO [address] [place] [address] PCP - General Family Medicine 06/06/18 documented as of this encounter
--- OUTSIDE RECORDS SUMMARY | 2025-04-19 08:23 | XMS_ITS | Encounter Summary ---
Author Organization [employer] Address [address] [place] [facility] [address] [place] [address] Care Team Providers Care Escrow Closer Name Role Phone Gavi Aldana Primary Care Provider + [phone] Reason for Visit * Reason Onset Date Comments rs cancelled appt 02/22/2025 Encounter Details Date Type Department Care Team ([facility] st Contact Info) Description 02/22/2025 Telephone [facility] ADULT DENTAL [address] [place] [address] José Miguel Sy DDS [address] [place] [address] rs cancelled appt Social History Tobacco Use [...] would like to reschedule cancelled appt for bahai with Susan. Yossi morning appt. Please reach out to patient documented in this encounter Plan of Treatment Upcoming Encounters Date Type Department Care Team (Late st Contact Info) Description 05/13/2025 10:00 AM EST Office Visit [facility] ADULT DENTAL [address] [place] [address] José Miguel Sy DDS [address] [place] [address] documented as of this encounter Visit Diagnoses Not on filedocumented in this encounter Additional Health Concerns Assessment Noted Time PHQ-9 Depression Total Score: 2 11/28/19 25 9:14 AM EDT documented as of this encounter Care Teams Escrow Closer Relationship Specialty Start Date End Date Gavi Aldana DO [address] [place] [address] PCP - General Family Medicine 06/06/18 documented as of this encounter
--- OUTSIDE RECORDS SUMMARY | 2025-04-19 08:23 | XMS_ITS | Encounter Summary ---
Author Organization [employer] Address [address] [place] [address] [address] [place] [address] Care Team Providers Care Amusement Centre Manager Name Role Phone Gavi Aldana Primary Care Provider + [phone] Reason for Visit * Reason Onset Date Comments rs same day cx/no show 12/03/2024 Encounter Details Date Type Department Care Team ([facility] st Contact Info) Description 12/03/2024 Telephone [facility] ADULT DENTAL [address] [place] [address] José Miguel Sy DDS [address] [place] [address] rs same day cx/no show Social History [...] Visit [facility] ADULT DENTAL [address] [place] [address] José Miguel Sy DDS [address] [place] [address] documented as of this encounter Visit Diagnoses Not on filedocumented in this encounter Additional Health Concerns Assessment Noted Time PHQ-9 Depression Total Score: 2 11/28/19 25 9:14 AM EDT documented as of this encounter Care Teams Amusement Centre Manager Relationship Specialty Start Date End Date Gavi Aldana DO [address] [place] [address] PCP - General Family Medicine 06/06/18 documented as of this encounter
--- OUTSIDE RECORDS SUMMARY | 2025-04-19 08:23 | XMS_ITS | Data Portability ---
Author Organization GetNotes, [facility] [employer] [facility] Address [address] [place] [address] Assessment Encounter Date Assessment Date Assessment LastModified by Organization Details LastModified Time 03/17/2023 03/17/2023 As noted, we were called to see this patient regarding concerns of cough. Evaluation in the field was performed by my operator command support systems colleague, as noted above, I provided real-time [...] /min 98.1 [degF] 149/88 mm[Hg] Not Available [employer] - production 3 19:40:55 Social History None [...] ICD10 Code Diagnosis IMO Codes Diagnosis Note [id number] Amparo Marley MD [address] [address] 03/17/2023 19:40:50 03/17/2023 19:55:52 Health Concerns Section Related Observation LastModified by Organization Detai ls LastModified Time None Recorded Concern Status LastModified by Organization Details LastModified Time None Recorded Advance Directives Directive None Recorded Payers Insurance Date Sequence Insurance Name Policy Number Policy Ivy Covered Member ID Ivy Member ID Guarantor Name 05/05/2024 1 [facility] - DOS ON OR AFTER 2022 - DUAL ELIGIBLE - [facility] AND [facility] (MEDICARE REPLACEMENT/ADV ANTAGE - HMO) Candi Sanchez [id number] Candi Sanchez Notes Date Note Type Note [...] CRC RN DID NOT NEED FURTHER INFO [facility] HPI: 3 weeks, sore throat throughout, cough throughout. dry cough. has never had something like this before. some sour taste, depending on what she ate. no abdominal, a little epigastric burning. Saw provider, got tessalon perles, initially helpful but then. 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 Amparo Marley MD [address] [facility],[address], [place], [address], [email or web address] 03/17/2023 19:55:51 OBGyn Episode No OBEpisode recorded.
--- OUTSIDE RECORDS SUMMARY | 2025-04-19 08:23 | XMS_ITS | Encounter Summary ---
Author Organization [employer] Address [address] [place] [address] [address] [place] [address] Care Team Providers Care Valve Inserter Name Role Phone Gavi Aldana DO Primary Care Provider [phone] Encounter Details Date Type Department Care Team (Late Contact Info) Description 12/14/2022 Orders Only [facility] MED & PEDS [address] [place] [address] Gavi Duarte LPN Social History Tobacco Use [...] 10:00 AM EST Office Visit [facility] ADULT DENTAL [address] [place] [address] José Miguel Sy DDS [address] [place] [address] documented as of this encounter Visit Diagnoses Not on filedocumented in this encounter Care Teams Valve Inserter Relationship Specialty Start Date End Date Gavi Aldana DO [address] [place] [address] PCP - General Family Medicine 06/06/18 documented as of this encounter
--- OUTSIDE RECORDS SUMMARY | 2025-04-19 08:23 | XMS_ITS | Encounter Summary ---
Author Organization [employer] Address [address] [facility] 7t [place] [address] Care Team Providers Care Life Guard Name Role Phone Gavi Aldana DO Primary Care Provider + [phone] Reason for Visit * Reason Comments Med Refill Encounter Details Date Type Department Care Team ([facility] st Contact Info) Description 04/04/2024 Refill [facility] MEDICINE [address] [place] [address] Gavi Aldana DO [address] [place], [place] [phone] Social History Tobacco Use Types Packs/Day Years [...] 10:00 AM EST Office Visit [facility] ADULT DENTAL [address] [place] [address] José Miguel Sy DDS [address] [place] [address] documented as of this encounter Visit Diagnoses Not on filedocumented in this encounter Additional Health Concerns Assessment Noted Time PHQ-9 Depression Total Score: 1 06/15/19 24 10:29 AM EST documented as of this encounter Care Teams Life Guard Relationship Specialty Start Date End Date Gavi Aldana DO [address] [place] [address] PCP - General Family Medicine 06/06/18 documented as of this encounter
--- OUTSIDE RECORDS SUMMARY | 2025-04-19 08:23 | XMS_ITS | Encounter Summary ---
Author Organization [employer] [facility] Address [address] [place] [address] 7t [place] [address] Care Team Providers Care Pie Maker Machine Name Role Phone Gavi Aldana DO Primary Care Provider [phone] Encounter Details Date Type Department Care Team (Late st Contact Info) Description 06/22/2022 Orders Only [facility] MEDICINE [address] [place] [address] Tamara Floyd LPN Social History Tobacco Use [...] Description 05/13/2025 10:00 AM EST Office Visit [facility] ADULT DENTAL [address] [place], [place] [phone] José Miguel Sy DDS [address] [place], [place] [phone] documented as of this encounter Procedures Procedure Name Priority Date/Time Associated Diagnosis Comments GLUCOSE, WHOLE BLOOD Routine 07/06/2022 10:44 AM EST documented in this encounter Results * (ABNORMAL) Glucose, Whole Blood (07/06/2022 10:44 AM EST) Glucose, Whole Blood 204(H) 60 - 115 mg/dL [facility] Comment:METER #: [id number] 5Testing performed in the Endocrinology Department [address] , [address], [facility]. 07/06/2022 10:4 4 AM EST 07/06/2022 10:48 AM EST [facility] External Provider LAB BLO OD ORDERABLES Final Result Performing Organization Address City/State/[facility] Co de Phone Number [facility] [address] [place] [phone] documented in this encounter Visit Diagnoses Not on filedocumented in this encounter Care Teams Pie Maker Machine Relationship Specialty Start Date End Date Gavi Aldana DO [address] [place] [address] PCP - General Family Medicine 06/06/18 documented as of this encounter
--- OUTSIDE RECORDS SUMMARY | 2025-04-19 08:24 | XMS_ITS | Data Portability ---
Author Organization [place] [facility], [facility] Address [address] [address] Care Team Providers Care Mailing Manager Name Role Phone MARTINEZ VIZCARRA Primary [...] copy of the audiogram, a list of [facility] hearing aid providers, and medical [...] Organization Details Recorded Time Dizziness and giddiness 389277889 Active 2018 Dizziness and giddiness ; Note: Date Diagnosed : 01/25/2019 11:02 AM (R42) Not Available [facility] 4 02:39:47 Impacted cerumen of bilateral ears 96761115397 30642 Active 2018 Impacted cerumen, bilateral ; Note: Date Diagnosed : 01/25/2019 11:05 AM (H61.23) Not Available [facility] 4 02:39:43 Bilateral tinnitus 35940675923 02 Active 2018 Tinnitus, bilateral ; Note: Date Diagnosed : 01/25/2019 11:24 AM (H93.13) Not Available [facility] 4 02:39:43 Benign paroxysma l positiona l vertigo 217193246 Active 2018 Benign paroxysma l vertigo, unspecifi ed ear; Note: Date Diagnosed : 01/25/2019 11:03 AM (H81.10) Not Available [facility] 4 02:39:53 Sensorine ural hearing loss of bilateral ears 257034431 Active 2018 Sensorine ural hearing loss, bilateral ; Note: Date Diagnosed : 01/25/2019 11:24 AM (H90.3) Not Available [facility] 4 02:39:48 Cough 06192272 Active 2020 Cough, unspecifi ed; Note: Changed from R05 to R05.9 ( 4 9:23 AM) , Date Diagnosed : 02/11/2021 10:17 AM (R05) WYATT NAVA MD [address] [place] [address], [place], [address] , [facility] - [facility] 4 10:02:57 Allergic rhinitis 10063183 Active 2023 Allergic rhinitis, unspecifi ed; Note: Date Diagnosed : 08/01/2023 10:25 AM (J30.9) Not Available [facility] 02:39:50 Nasal congestio n 52488919 Active 2023 Nasal congestio n; Note: Date Diagnosed : 08/01/2023 10:25 AM (R09.81) Not Available [facility] 02:39:53 Gastroeso phageal reflux disease without esophagit is 302825301 Active 2023 Gastro-es ophageal reflux disease without esophagit is; Note: Date Diagnosed : 08/25/2023 10:32 AM (K21.9) Not Available [facility] 02:39:48 Problem Notes None recorded. Procedures Surgical History Date Name Laterality Status Provider Name and Address Organization Details Recorded Time 07/30/19 25 Wax_DP completed WYATT NAVA MD [address] [place] [address], [phone], [facility] 07/30/2024 08:53:51 07/30/19 25 Air only Audio - 88809 completed JEAN SALES [address], [address], [facility] 07/30/2024 09:17:09 07/30/19 25 Tympanometry - 69108 completed JENA SALES [address], [address], [facility] 07/30/2024 09:17:15 Imaging Results None recorded. [...] mg tablet 04/27 completed Medicati on ID: [id number] B rand Name: atorvast atelijah Sen d Method: E-Prescr ibed Sub s Allowed: subs OK Speci al Instruct ion: TOME PRAVEEN TABLETA TODOS LOS D AL ACOSTARS E Medica tionGene ricName: atorvast atin Not Available Not Available Not Available Vitamin C 500 mg tablet active Medicati on ID: [id number] B rand Name: Vitamin C Send Method: [...] layed release 02/11 completed Medicati on ID: [id number] D uration Value: 90 Brand Name: aspirin Send Method: E-Prescr ibed Sub s Allowed: subs OK Speci al Instruct ion: TOME PRAVEEN TABLETA POR V?A ORAL TODOS LOS D? Med icationG enericNa me: aspirin Not Available Not Available Not Available tramadol 50 mg tablet active Medicati on ID: [id number] B rand Name: tramadol Send Method: E-Prescr ibed Sub s Allowed: subs OK Medic ationGen ericName : tramadol Not Available Not Available Not Available spironola ctone 25 mg tablet active Medicati on ID: [id number] B rand Name: spironol actone S end [...] 10 mg tablet active Medicati on ID: [id number] B rand Name: baclofen Send Method: E-Prescr ibed Sub s Allowed: subs OK Speci al Instruct ion: TAKE 1 TABLET BY MOUTH 3 TIMES EVERY DAY NEEDED FOR MUSCLE SPASM/PA IN Medic [facility] ericName : baclofen Not Available Not Available Not Available benzonata te 100 mg capsule TAKE 1 CAPSULE BY MOUTH THREE TIMES DAILY NEEDED FOR COUGH active Not Available Not Available No t Available pantopraz ole 40 mg tablet,de layed release active Medicati on ID: [id number] B rand Name: pantopra zole Sen d Method: E-Prescr ibed Sub s Allowed: subs [place] [facility] ericName : pantopra zole Not Available Not Available Not Available ferrous sulfate 325 mg (65 mg iron) tablet 04/27 completed Medicati on ID: [id number] B rand Name: ferrous sulfate Send Method: [...] mg tablet 02/11 completed Medicati on ID: [id number] D uration Value: 90 Brand Name: metoprol [...] (0.125 mg) tablet active Medicati on ID: [id number] B rand Name: digoxin Send Method: E-Prescr [...] mg capsule 02/11 completed Medicati on ID: [id number] B rand Name: gabapent in Send Method: E-Prescr ibed Sub s Allowed: subs OK Medic ationGen ericName : gabapent in Not Available Not Available Not Available Novolog U-100 Insulin aspart 100 unit/mL subcutane ous solution active Medicati on ID: 604515 B rand Name: Novolog U-100 Insulin aspart S end Method: E-Prescr ibed Sub s Allowed: subs OK Speci al Instruct ion: UP TO 100 UNITS VIA INSULIN PUMP SUBCUT DAILY Me dication GenericN norma: Novolog U-100 Insulin aspart Not Available Not Available Not Available nystatin 100,000 unit/gram topical powder 04/27 completed Medicati on ID: [id number] B rand Name: nystatin Send Method: E-Prescr ibed Sub s Allowed: subs OK Speci al Instruct ion: APLIQUE AL LIAT AFECTADA DOS VECES AL D A Medica tionGene ricName: nystatin Not Available Not Available Not Available albuterol sulfate HFA 90 mcg/actua tion aerosol inhaler 02/11 completed Medicati on ID: [id number] B rand Name: albutero l sulfate Send Method: E-Prescr ibed Sub s Allowed: subs OK Speci al Instruct ion: TOME DOS INHALACI ONES POR V A ORAL CADA CUATRO A SEIS HORAS CUANDO SEA NECESARI O Medica tionGene ricName: albutero l sulfate Not Available Not Available Not Available fluticaso ne propionat e 50 mcg/actua tion nasal spray,lalo pension active Medicati on ID: [id number] B rand Name: fluticas one propiona te [...] 40 mg tablet active Medicati on ID: 944521 B rand Name: valsarta n Send Method: [...] mg-50 mg tablet active Medicati on ID: [id number] B rand Name: Senna Plus Sen d [...] ion nasal spray active Medicati on ID: 933732 B rand Name: Narcan S end Method: [...] pen injector 02/11 completed Medicati on ID: [id number] D uration Value: 30 Brand Name: Ozempic [...] Available Not Available Not Available Dexcom G7 Sausage Stringer USE DIRECTED active Not Available Not Available [...] Updated DateTime 07/30/2024 149.86 cm 26.7 kg/m2 22879.19 g Nash [place] [facility] 07/30/2024 08:41:37 Date Recorded Body height Body mass index (BMI) Body weight Provider Name and Address Organization Details Last Updated DateTime 04/27/2024 149.86 cm 26.7 kg/m2 75262.19 g Susy Vera [place] [facility] 04/27/2024 09:48:20 Social History None recorded. Functional Status None recorded. Mental Status None recorded. Family History Nothing Reported. Medical History Condition Response Diabetes Y Gynecological HistoryNo gynecological history recorded. Obstetrics History GPAL:G 0 P 0 0 0 0 Past Encounters Encounter ID Performer Location Encounter Start Date Encounter Closed Date Diagnosis/Indication Diagnosis SNOMED-CT Code Diagnosis ICD10 Code Diagnosis IMO Codes Diagnosis Note [id number] WYATT NAVA MD [facility] [address] [address] 04/27/2024 09:29:27 04/27/2024 10:08:17 Cough 78715181 R05.9 Sensorineu ral hearing loss of bilateral ears 572860468 H90.3 [id number] WYATT NAVA MD [facility] [address] [address] 07/30/2024 08:36:37 07/30/2024 09:43:52 Sensorineural hearing loss of bilateral ears 048537673 H90.3 Audiologic al evaluation results: Right ear: Mild sloping to severe sensorineu ral hearing loss Left ear: Mild sloping to severe sensorineu ral hearing loss Tympanomet ry: Right Ear:Type As Left Ear:Type As Impacted c erumen of bilateral ears [id number] 413590 H61.23 Ears were meticulous ly cleaned bilaterall [...] Ivy Member ID Guarantor Name 04/27/2024 1 [facility] (MEDICARE REPLACEMENT/ADV ANTAGE - HMO) Candi Campbell Sanchez [id number] Candi Sanchez 05/02/2024 2 [facility] [place] ([place]IC[place] REPLACEMENT/ADV ANTAGE - HMO) Candi Sanchez [id number] Candi Sanchez 07/30/2024 1 [facility] - DOS ON OR AFTER 2022 - DUAL ELIGIBLE - MEDICARE ADVANTAGE [place] & [place] (MEDICARE REPLACEMENT/ADV ANTAGE - HMO) Candi Campblel Sanchez [id number] Candi Sanchez 02/25/2025 1 [facility] - DOS ON OR AFTER 2022 - [employer] (MEDICARE REPLACEMENT/ADV ANTAGE - HMO) Candi Sanchez [id number] Candi Sanchez Notes Date Note Type Note [...] 2 pills. Rx famotidine WYATT NAVA MD [address] [place] [address], [phone], [facility] [place] 04/27/2024 10:06:17 07/30/2024 text/html IPad - Spanishhearing lossdid not pursue hearing aids in past year 08/01/23 Dr Kern audiomild sloping to severe B SNHLcleared for B HAE PV 04/27/24 Iris - cough - improved with meds from pulm WYATT NAVA MD [address] [place] [address],[address], [address], [facility] - [facility] 07/30/2024 09:42:27 OBGyn Episode No OBEpisode recorded.
[2025-04-19 09:44] LABS: Anion Gap 13 (12-20); Blood Urea Nitrogen 25 mg/dL (9-16); Carbon Dioxide 26 mmol/L (22-29); Chloride 106 mmol/L (96-108); Estimated Glomerular Filt Rate 59; Potassium 4.0 mmol/L (3.3-5.1); Sodium 141 mmol/L (135-145)
[2025-04-19 10:29] LABS: Protein/Creatinine Ratio, Ur 0.71 (<0.2); Total Protein Urine Random 27 mg/dL (<12)
== END 2025-04-19 08:16 | disposition home or self-care (01) ==
LOC: HO.LAB 08:15
PROVIDERS: Internal Medicine Nephrology; PCP Family Medicine; Visit Provider Student in an Organized Health Care Education/Training Program
DX: E10.21 Type 1 diabetes mellitus with diabetic nephropathy (principal); I10 Essential (primary) hypertension; R80.1 Persistent proteinuria, unspecified
CPT/HCPCS: 80051; 82565; 82570; 82784; 83036; 84156; 84520; 86334; 86335

== ENCOUNTER 2025-04-23 08:08 | Outpatient (AMB) | payer OTHER, SELFPAY ==
--- NOTE | 2025-04-23 08:29 | A.OFFVIS_ITS ---
Vital Signs 04/23/25 08:39 Height 4 ft 11 in Weight 135 lb 5.821 oz BMI 27.3 BP 122/70 Blood Pressure Location Lt brachial Position Sitting Pulse 71 Pulse Source Pulse Oximeter Pulse Oximetry (%) 97 Oxygen Delivery Method Room Air Intake Visit Reasons: follow up Intake Note: Patient presents for RA/OA and hand pain follow up. Silk Screen Printer Machine Required: Yes Silk Screen Printer Machine Language: Court Clerk Services: Silk Screen Printer Machine Present Silk Screen Printer Machine Name: Claudine [id number] Information Interpreted: non-clinical & clinical Allergies No Known Allergies Allergy (Verified 04/23/25 08:38) Medication List - Last Reconciled 04/23/25 by Megan Trinidad MD acetaminophen ER (Arthritis Pain Relief (acetaminophen) ER) 1 tab PO Q8H PRN acetone (urine) test (Ketone Urine Test strips) prn tid for glucose staying over 250 or symptoms of nausea/vomiting apixaban (Eliquis) 5 mg PO BID ascorbic acid (vitamin C) 500 mg PO DAILY atorvastatin 10 mg PO DAILY baclofen 10 mg PO TID PRN blood sugar diagnostic As directed blood sugar diagnostic (FreeStyle Lite Strips) TEST BLOOD SUGAR FOUR TIMES DAILY blood-glucose meter (FreeStyle Lite Meter kit) As directed blood-glucose sensor (Dexcom G7 Sensor device) As directed every 10 days blood-glucose sensor (Dexcom G7 Sensor device) As directed blood-glucose,choreography director,cont (Dexcom G7 Supervisor Webbing) As directed Breo Ellipta 200-25 mcg/dose (fluticasone furoate-vilanterol) 1 inh inhalation DAILY 30 days NS clotrimazole 1% appl topical BID empagliflozin (Jardiance) 10 mg PO DAILY etanercept (Enbrel SureClick) 50 mg subcut QWEEK famotidine 40 mg PO DAILY ferrous sulfate (FeroSul) 325 mg PO DAILY fexofenadine (Allergy Relief (fexofenadine)) 180 mg PO DAILY fluticasone propionate 50 mcg/actuation 2 sprays intranasal DAILY PRN folic acid 1 mg PO DAILY furosemide 40 mg PO DAILY glucagon 3 mg/actuation (Baqsimi) 3 mg intranasal .twice PRN 30 days MDD 6 mg glucose 7.5 - 15 grams PO DAILY glucose (Dex4 Glucose) 16 grams (4 x 4 gram) PO Q15M PRN 30 days MDD 16 tablets ibuprofen 600 mg PO TID insulin aspart U-100 (Novolog FlexPen U-100 Insulin aspart) subcutaneously inject 12 -14 units before breakfast and lunch, 10 units before dinner 90 days MDD 54 units insulin degludec (Tresiba FlexTouch U-200 insulin) 12 units (0.06 mL) subcut DAILY 90 days lancets (TRUEplus Lancets) As directed methotrexate sodium 15 mg (6 x 2.5 mg) PO QWEEK 90 days metoprolol tartrate 100 mg PO BID 30 days omeprazole 40 mg PO BID pen needle, diabetic (UltiCare Pen Needle) As directed pen needle, diabetic (BD Ultra-Fine Thania Pen Needle) USE DIRECTED FOUR TIMES DAILY sacubitril-valsartan 49-51 mg (Entresto) 1 tab PO BID sennosides-docusate sodium 8.6-50 mg (Senokot-S) 2 tab-caps (2 x 8.6-50 mg) PO BEDTIME spironolactone 25 mg PO DAILY HPI Comments Details: Patient is a 74-year-old female with hypertension, diabetes, coronary artery disease, heart failure with reduced ejection fraction, atrial fibrillation on digoxin and Eliquis who presents to [facility] for management of rheumatoid arthritis Interval History: Patient last seen 01/25/25 with al - On methotrexate 15mg weekly and Enbrel 50mg weekly - Doing much better! - Swelling improved, pain improved - Does get intermittent small tings of pain but these resolve within mins Today - On methotrexate 15mg weekly and Enbrel 50mg weekly - Continues to do well - Complaining of right knee pain Rheumatologic History: Ddx RA ?start Mtx up 2020 when lost to follow up Re established care 05/2024 Methotrexate 05/2024 - Enbrel added 09/2024 Patient diagnosed with seropositive rheumatoid arthritis several years ago. Was maintained on methotrexate however was lost to follow up since 2020. Previously taking methotrexate but that has since stopped. Sometimes intermittently has flares of her disease with swelling to her hands and her wrists but this would respond to [id number] Tylenol Arthritis. Has prolonged morning stiffness up to an hour. Her main complaints are her bilateral shoulders for which she recently got a steroid injection 1 month ago for. She also complains of knee pain worse at the end of the day impairs her ability to ascend stairs. Denies any shortness of breath, unexplained weight loss. 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 Current Rheumatology Medication(s): Methotrexate 15mg weekly Folic acid 1mg daily Enbrel 50mg SC weekly PFSH Medical History Polyarticular osteoarthritis Thyroid nodule greater than or equal to 1.5 cm in diameter incidentally noted on imaging study Thyroid nodule Helicobacter pylori gastritis Chronic cough On beta justine at home Nonischemic cardiomyopathy CHF (congestive heart failure) CAD (coronary artery disease) Thrombocytopenia Anemia Chronic GERD Elevated liver enzymes Seropositive rheumatoid arthritis Obesity (BMI 30-39.9) Vitamin D deficiency Dyslipidemia Hypertension 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 Mother No problems noted. Maternal Aunt Diabetes mellitus Social History Household Members: None Housing: Apartment Are you a primary career consultant to a significant other at home: No Do you presently have visiting nurse or other home services: Yes (telephone) Alcohol intake: never Patient Tobacco Use Status: Never used Tobacco service: No Current occupational status: retired Current occupation: rt handed Review of Systems Narrative Review of Systems Constitutional: Denies fever, chills, weight loss ENT: Denies vision changes, eye pain or eye redness, dental caries, dry mouth GI: Denies nausea, vomiting, diarrhea, abdominal pain, change in BM Pulm: Denies SOB, THOMPSON, hemoptysis, wheezing Cards: Denies chest pain, palpitations Skin: Denies Raynaud's, rash, nail changes, photosensitivity, RAILROAD TRACK MECHANIC: Denies headaches, weakness, paresthesias, recurrent falls MSK: as per HPI All other systems reviewed and are unremarkable except noted above Physical Exam Exam Exam: Vital signs reviewed Physical Examination CONSTITUITIONAL Patient alert and cooperative. Well appearing and in no apparent painful distress MSK Hands * Right Hand: Able to make a fist. No swelling or tenderness to palpation of these joints. * Left Hand: Able to make a fist. No swelling or tenderness to palpation of these joints. * Crepitations felt bilaterally Wrists * Right Wrist: Full ROM. 70 degrees of wrist flexion, 80 degrees of wrist extension. No swelling or TTP * Left Wrist: Full ROM. 70 degrees of wrist flexion, 80 degrees of wrist extension. No swelling or TTP Elbows * Right Elbow: Full ROM. No swelling or TTP. No TTP of the medial and lateral epicondyles * Left Elbow: Full ROM. No swelling or TTP. No TTP of the medial and lateral epicondyles Shoulders * Right shoulder: Full ROM. No swelling noted. No TTP of the AC joint, subacromial bursa or posterior shoulder * Left shoulder: Full ROM. No swelling noted. No TTP of the AC joint, subacromial bursa or posterior shoulder Knees * Right knee: Full ROM. No swelling noted. TTP of the knee joint line. TTP of pes anserine bursa * Left knee: Full ROM. No swelling noted. No TTP of the knee joint lie or pes anserine bursa. Ankles * Right ankle: Good ankle dorsiflexion and plantar flexion. No swelling. No TTP of the ankle joint * Left ankle: Good ankle dorsiflexion and plantar flexion. No swelling. No TTP of the ankle joint Feet * Right foot: Negative squeeze test * Left foot: Negative squeeze test Tender points? * No tenderness to palpation of the bilateral trapezius, supraspinatus, anterior costochondral junctions, bilateral suboccipital muscle insertions SKIN No rashes Vital Signs: Last Vital Signs Pulse 71 04/23/25 08:39 BP 122/70 04/23/25 08:39 Pulse Ox 97 04/23/25 08:39 Oxygen Delivery Method Room Air 04/23/25 08:39 BMI result Body Mass Index 27.3 Office Procedures AMB Joint Injection/Aspiration Joint Injection/Aspiration Details: Procedure was explained to the patient and informed consent was obtained. ? Risks associated with the procedure were discussed with the patient including but not limited to bleeding, infection, drug reactions and reactions to the topical anesthetic. Patient made aware of signs to look out for infectious complications. The area of interest was identified and confirmed with patient. ?This was subsequently cleaned with chlorhexidine x 2. ? The area was then anesthetized using ethyl chloride spray. 40 mg Kenalog with 1 cc 1% lidocaine was injected without issue. ?Minimal to no bleeding. ?Patient tolerated procedure. Primary Site: Right Knee Prep: site was prepped using aseptic technique and ethochloride spray was applied Injected: 40 mg of, Kenalog, with 1 mL of, 1% plain Lidocaine and in the joint Approach Used: anterior Procedure: The patient tolerated the procedure well Coding 39968 - Large joint Procedure code (CPT) selection complete Office Meds lidocaine (PF) 10 mg/mL (1 %) injection solution Performing Provider: Megan Trinidad MD Performing Location: [facility] Administered by: Megan Trinidad MD on 04/23/25 09:08 Dose Route Admin Location Dispensed Lot Number Expiration Date [facility] [employer] Tech 1 mL Infiltration right knee 2 mL [id number] 09/03/26 49005-822-67 FR [employer] Total Dispensed Waste 2 mL 50 % Kenalog 40 mg/mL suspension for injection Performing Provider: Megan Trinidad MD Performing Location: [facility] Administered by: Megan Trinidad MD on 04/23/25 09:08 Dose Route Admin Location Dispensed Lot Number Expiration Date [facility] [employer] Tech 40 mg intra-articular right knee 1 mL [id number] 12/03/26 [address]- 1 [employer] Total Dispensed Waste 1 mL 0 % Results Reviewed Results Reviewed: Laboratory Tests 01/25/25 01/29/25 04/19/25 08:44 09:48 08:26 WBC 6.2 RBC 4.81 Hgb 11.1 L Hct 35.9 L Plt Count 107 L ESR 16 Sodium 141 Potassium 4.0 Chloride 106 Carbon Dioxide 26 BUN 25 H Creatinine 0.93 AST 23 ALT 9 Laboratory Tests 09/04/24 09:02 Hepatitis A IgM Ab Nonreactive Hep Bs Antigen Negative Hep Bs Antibody REACTIVE Hep B Core Total Ab Nonreactive Hepatitis C Ab (EIA) Nonreactive TB Test (T-Spot) Com Negative Assessment & Plan Assessment & Plan (1) Seropositive rheumatoid arthritis: Code(s): M05.9 - Rheumatoid arthritis with rheumatoid factor, unspecified Category: Medical Plan: #Seropositive RA Patient is a 74-year-old female with seropositive rheumatoid arthritis here today for follow up. Currently in remission Plan - Methotrexate 15mg weekly PO - Folic acid 1mg daily - Enbrel 50mg weekly SC - RTC 6 months - Labs before visit: CBC, CMP, ESR, CRP (2) Polyarticular osteoarthritis: Comment: Last injection for shoulders was 09/2023 Code(s): M15.9 - Polyosteoarthritis, unspecified Category: Medical Plan: #Polyarticular OA Polyarticular OA involving shoulders and knees. Given that patient is on Eliquis would not recommend Celebrex. Has tried topical diclofenac in the past with out much relief. Has also tried physical therapy without much help. At this time limited in therapeutic that we can offer. Tried tramadol in the past which helped but she had stomach issues with it. She can continue receiving injections p.r.n.. 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 Limit alcohol and avoid Bactrim ? 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 (current) use of immunosuppressive biologic Plan: #Long-term Use of TNF Inhibitors: Etanercept Discussed with the patient the benefits and risks of TNF inhibitors for the management of the rheumatic condition Benefits include reduce pain, maintenance of remission and reduction of flares as well as ?progression of the disease Risks include injection sites/infusion reactions, serious infections (such as bacterial infections, opportunistic infections), malignancy, delaminating syndromes, autoimmune phenomena, CHF exacerbations, palmar plantar psoriasis and cytopenias Recommended rotating injection sites, and holding medication during and for up to 1 week after resolution of a febrile illness or open skin wound Plan I spent 30 minutes reviewing the record and labs, seeing the patient, discussing the treatment plan, and documenting in the medical record Orders: Orders AMB Joint Injection/Aspiration Today M17.11 - Unilateral primary osteoarthritis, right knee Medications: Refilled folic acid 1 mg PO DAILY 90 tabs 1RF M05.9 - Rheumatoid arthritis with rheumatoid factor, unspecified etanercept (Enbrel SureClick) 50 mg subcut QWEEK 4 mL 4RF M05.9 - Rheumatoid arthritis with rheumatoid factor, unspecified methotrexate sodium 15 mg (6 x 2.5 mg) PO QWEEK 78 tabs 1RF 90 days M05.9 - Rheumatoid arthritis with rheumatoid factor, unspecified Coding Level of Care Code Est Pt Level 4 (31783) Complex EM visit Add On G2211 Diagnoses Seropositive rheumatoid arthritis M05.9 Polyarticular osteoarthritis M15.9 USP methotrexate user Z79.899 Encounter for monitoring of etanercept therapy Z51.81; Z79.620 CPT Codes Coding - 66227 Large joint: 33433 - Large joint ([id number])
[2025-04-23 08:39] VITALS: BP 122/70; PULSE 71; O2SAT 97; BMI 27.3
== END 2025-04-23 09:13 | disposition home or self-care (01) ==
LOC: HO.RHES 08:09
PROVIDERS: PCP Family Medicine; Visit Provider Student in an Organized Health Care Education/Training Program
DX: M05.79 Rheumatoid arthritis with rheumatoid factor of multiple sites without organ or systems involvement (principal); M17.11 Unilateral primary osteoarthritis, right knee; Z79.899 Other long term (current) drug therapy; Z51.81 Encounter for therapeutic drug level monitoring; Z79.620 Long term (current) use of immunosuppressive biologic
CPT/HCPCS: 20610; 99214

== ENCOUNTER → 2025-04-23 08:08 | Outpatient (BNVA) | payer OTHER, SELFPAY | PROVIDERS: PCP Family Medicine; Visit Provider Student in an Organized Health Care Education/Training Program | DX: M05.9 Rheumatoid arthritis with rheumatoid factor, unspecified (principal); R15.9 Full incontinence of feces; M25.561 Pain in right knee; Z79.899 Other long term (current) drug therapy; Z79.620 Long term (current) use of immunosuppressive biologic; Z79.52 Long term (current) use of systemic steroids | CPT/HCPCS: 20610; 99212; J2003; J3301 ==

== ENCOUNTER 2025-05-17 08:56 | Outpatient (AMB) | payer OTHER, SELFPAY ==
[2025-05-17 09:02] VITALS: BP 110/62; PULSE 80; O2SAT 95; BMI 26.5
--- NOTE | 2025-05-17 09:02 | MHC.OFFVIS ---
Vital Signs 05/17/25 09:02 Height 4 ft 11 in Weight 131 lb BMI 26.5 BP 110/62 Blood Pressure Location Rt brachial Position Sitting Pulse 80 Pulse Source Pulse Oximeter Pulse Oximetry (%) 95 Oxygen Delivery Method Room Air Intake Visit Reasons: Cough Liquor Establishment Manager Required: Yes Liquor Establishment Manager Name: Gavi Whitaker Stephanie Information Interpreted: non-clinical & clinical Allergies No Known Allergies Allergy (Verified 05/17/25 09:07) HPI HPI Cough: Details: 74-year-old lady, nonsmoker, with underlying AFib, chronic GERD, rheumatoid arthritis on methotrexate followed for pulmonary component of dyspnea on exertion and cough.? Patient has been using furosemide 40 mg daily with good control of dyspnea on exertion and lower extremity edema. She continues on Breo and her symptoms have been well controlled. She denies recent exacerbations. [facility] Medical History Polyarticular osteoarthritis Thyroid nodule greater than or equal to 1.5 cm in diameter incidentally noted on imaging study Thyroid nodule Helicobacter pylori gastritis Chronic cough On beta justine at home Nonischemic cardiomyopathy CHF (congestive heart failure) CAD (coronary artery disease) Thrombocytopenia Anemia Chronic GERD Elevated liver enzymes Seropositive rheumatoid arthritis Obesity (BMI 30-39.9) Vitamin D deficiency Dyslipidemia Hypertension 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 Mother No problems noted. Maternal Aunt Diabetes mellitus Social History Household Members: None Housing: Apartment Are you a primary healthcare translator to a significant other at home: No Do you presently have visiting nurse or other home services: Yes (telephone) Alcohol intake: never Patient Tobacco Use Status: Never used Tobacco service: No Current occupational status: retired Current occupation: rt handed Review of Systems Const Denies daytime sleepiness, Denies excessive sweating, Denies fatigue, Denies fever(s), Denies lethargy, Denies malaise, Denies night sweats, Denies snoring and Denies weight loss Eyes Denies blurry vision and Denies itchy eyes ENT Denies nasal congestion, Denies post nasal drip, Denies sinus pain, Denies sinus pressure and Denies other ( Thrush) Card Denies chest pain, Denies pedal edema, Denies dyspnea, Denies orthopnea and Denies paroxysmal nocturnal dyspnea Resp Denies cough, Denies hemoptysis, Denies excessive phlegm production, Denies dyspnea, Denies snoring and Denies wheezing GI Denies abdominal pain and Denies heartburn Musc Denies myalgias, Denies arthralgias and Denies joint swelling Skin/Breast Denies rash Neuro Denies memory loss and Denies seizure-like activity Psych Denies abnormal sleep pattern, Denies anxiety and Denies memory loss Endo Denies excessive sweating, Denies fatigue and Denies heat intolerance Angelo/Lymph Denies easy bruising Aller/Immun Denies itchy eyes, Denies seasonal rhinorrhea and Denies wheezing Physical Exam Vital Signs: Last Vital Signs Pulse 80 05/17/25 09:02 BP 110/62 05/17/25 09:02 Pulse Ox 95 05/17/25 09:02 Oxygen Delivery Method Room Air 05/17/25 09:02 BMI result Body Mass Index 26.5 Const General: no acute distress and alert Nutritional Appearance: not obese Orientation/consciousness: Other orientation findings ( oriented) HEENT Head: Yes atraumatic Eyes General: appearance normal, both eyes and all related structures Sclerae: sclerae normal EOM: EOMs intact bilaterally Neck Neck: Yes supple Lymphatic: no lymphadenopathy noted Resp Effort & Inspection: normal respiratory effort and no use of accessory muscles Auscultation: clear to auscultation bilaterally Cardio Rate: regular rate Rhythm: regular rhythm Heart sounds: no gallops, no murmurs and no rubs Skin General skin exam: other ( warm) Extrem General: No clubbing, No cyanosis and No edema Assessment & Plan Assessment & Plan (1) Pulmonary nodules: Code(s): R91.8 - Other nonspecific abnormal finding of lung field Category: Surgical Plan: Results of CT chest from October of 2024 reviewed, stable pulmonary nodules, will repeat CT chest in October of 2025. (2) Dyspnea: Code(s): R06.00 - Dyspnea, unspecified Category: Medical Plan: Pulmonary component well controlled on current regimen of Breo and albuterol MDI. Continue current regimen. (3) Lower extremity edema: Code(s): R60.0 - Localized edema Category: Medical Plan: Controlled on current diuretic regimen of furosemide 40 mg daily. Continue current regimen. Coding Level of Care Code Est Pt Level 4 (06549) Add On Problem Visit Only Diagnoses Pulmonary nodules R91.8 Dyspnea R06.00 Lower extremity edema R60.0
== END 2025-05-17 09:13 | disposition home or self-care (01) ==
PROVIDERS: PCP Family Medicine; Visit Provider Internal Medicine Pulmonary Disease
DX: R91.8 Other nonspecific abnormal finding of lung field (principal); R06.00 Dyspnea, unspecified; R60.0 Localized edema
CPT/HCPCS: 99214; G2211

== ENCOUNTER → 2025-05-17 08:56 | Outpatient (BNVA) | payer OTHER, SELFPAY | PROVIDERS: PCP Family Medicine; Visit Provider Internal Medicine Pulmonary Disease | DX: R91.8 Other nonspecific abnormal finding of lung field (principal); R06.00 Dyspnea, unspecified; R60.0 Localized edema; Z79.899 Other long term (current) drug therapy | CPT/HCPCS: 99212 ==

== ENCOUNTER 2025-05-24 09:58 | Outpatient (REF) | payer OTHER, SELFPAY ==
--- OUTSIDE RECORDS SUMMARY | 2025-05-24 09:15 | XMS_ITS | Encounter Summary ---
Author Organization [employer] Address [address] [place] [address] Care Team Providers Care Mobile Security Specialist Name Role Phone Gavi Aldana DO Primary Care Provider [phone] Encounter Details Date Type Department Care Team ([facility] st Contact Info) Description 05/24/2025 9:15 AM EST Office Visit [facility] [address] [place], [place] [id number] Gavi Aldana DO [address] [place] [address] Encounter for immunization; Type 2 diabetes mellitus without complication, with long-term current use of insulin (HCC) Social History Tobacco Use Types Packs/Day Years Used Date Smoking Tobacco: Never Passive Smoke Exposure: Never Smokeless Tobacco: Never Alcohol Use Standard Drinks/Week Comments Never 0 (1 standard drink = 0.6 oz pur e alcohol) Alcohol Answer Date Recorded How often do you have a drink containing alcohol ? 0 05/13/2025 Average Number of Drinks Not on file 025 How often do you have six or more drinks on one occasion? 0 05/13/2025 Depression Answer Date Recorded Patient Health Questionnaire-9 Score 2 11/27/2024 Patient Health Questionnaire-9 Score 2 11/27/2024 Last PHQ-9: Questionnaire Data Not on file 0 11/27/2024 Housing Stability Answer Date Recorded What is your housing situation today? I have luis shields 05/17/[address] you li ve. Do you have problems with any of the following? None of the above 05/17/2025 Food Insecurity Answer Date Recorded Within the past 12 months, y ou worried that your food would run out before you got money to buy more: Never True 05/17/2025 Within the past 12 months,th e food you bought just didn't last and you didn't have enough money to get more: Never True 05/2025 Transportation Answer Date Recorded In the past 12 months, has l ack of transportation kept you from medical appts, meetings, work or from getting things needed for daily living? No 05/17/2025 Utilities Answer Date Recorded In the past 12 months, has t he electric, gas, oil or water company threatened to shut off services in your home? No 05/17/2025 Depression Answer Date Recorded Patient Health Questionnaire-2 Score 0 11/27/2024 Internet Access Answer Date Recorded Internet Access Q1 Yes 05/17/2025 Internet Access Q2 Not on file 05/17/2025 Comments No Sex and Gender Information Value Date Recorded Sex Assigned at Female 04/05/2022 10:21 AM EDT Legal Sex Female 10:21 AM EDT Gender Identity Female 04/05/2022 10:21 AM EDT Sexual Orientation Choose not to disclose 2021 10:21 AM EDT documented as of this encounter Last Filed Vital Signs Vital Sign Reading Time Taken Comments Blood Pressure 110/64 05/24/2025 9:16 AM EST Pulse 78 05/24/2025 9:16 AM EST Temperature 36.1 C (97 F) 05/24/2025 9:16 AM EST Respiratory Rate 16 05/24/2025 9:16 AM EST Oxygen Saturation - - Inhaled Oxygen Concentration - - Weight 60.8 kg (134 lb) 05/24/2025 9:16 AM EST Height 149.9 cm (4' 11 ) 05/24/2025 9:16 AM EST Body Mass Index 27.06 05/24/2025 9:16 AM EST documented in this encounter Plan of Treatment Upcoming Encounters Date Type Department Care Team (Late st Contact Info) Description 07/10/2025 9:30 AM EST Office Visit [facility] [address] [place] [address] José Miguel Sy DDS [address] [place] [address] documented as of this encounter Procedures Procedure Name Priority Date/Time Associated Diagnosis Comments POCT GLUCOSE Routine 05/24/2025 9:24 AM EST Type 2 diabetes mellitus without complication, with long-term current use of insulin (HCC) documented in this encounter Results * POCT Glucose (05/24/2025 9:24 AM EST) Glucose Blood, POC 176 60 - 200 mg/dL Comment:random QC Media Lot # [id number] Lot# Expiration Date Blood Capillary blood specimen / Unknown 05/24/2025 9:24 AM EST Gavi Aldana DO POINT OF CARE TEST ENTER/DIAMANTE T ORDERABLES Final Result documented in this encounter Visit Diagnoses Diagnosis Encounter for immunization Type 2 diabetes mellitus without complication, with long-term current use of insulin (HCC) documented in this encounter Additional Health Concerns Assessment Noted Time PHQ-9 Depression Total Score: 2 11/28/19 25 9:14 AM EDT documented as of this encounter Care Teams Mobile Security Specialist Relationship Specialty Start Date End Date Gavi Aldana DO [address] [place] [address] PCP - General Family Medicine 06/06/18 documented as of this encounter
--- OUTSIDE RECORDS SUMMARY | 2025-05-24 11:07 | XMS_ITS | Encounter Summary ---
Author Organization [facility] Address [address] [place] [address] [address] [place] [address] Care Team Providers Care Preparation Room Worker Name Role Phone Gavi Aldana DO Primary Care Provider [phone] Encounter Details Date Type Department Care Team (Latest Contact Info) Description 09/25/2018 Abstract [facility] CONVERSIONS Dental, Provider, DDS Social History [...] Description 07/10/2025 9:30 AM EST Office Visit [facility] ADULT DENTAL [address] [place] [address] José Miguel Sy DDS [address] [place] [address] documented as of this encounter Visit Diagnoses Not on filedocumented in this encounter Care Teams Preparation Room Worker Relationship Specialty Start Date End Date Gavi Aldana DO [address] [place] [address] PCP - General Family Medicine 06/06/18 documented as of this encounter
--- OUTSIDE RECORDS SUMMARY | 2025-05-24 11:07 | XMS_ITS | Encounter Summary ---
Author Organization [employer] Address [address] [facility] 7t [place] [address] Care Team Providers Care Medical Technician Name Role Phone Gavi Aldana DO Primary Care Provider + [phone] Reason for Visit * Reason Comments Med Refill Encounter Details Date Type Department Care Team ([facility] st Contact Info) Description 04/04/2024 Refill [facility] MEDICINE [address] [place] [address] Gavi Aldana DO [address] [place], [place] [phone] Social History Tobacco Use Types Packs/Day Years [...] Description 07/10/2025 9:30 AM EST Office Visit [facility] ADULT DENTAL [address] [place] [address] José Miguel Sy DDS [address] [place] [address] documented as of this encounter Visit Diagnoses Not on filedocumented in this encounter Additional Health Concerns Assessment Noted Time PHQ-9 Depression Total Score: 1 06/15/19 24 10:29 AM EST documented as of this encounter Care Teams Medical Technician Relationship Specialty Start Date End Date Gavi Aldana DO [address] [place] [address] PCP - General Family Medicine 06/06/18 documented as of this encounter
--- OUTSIDE RECORDS SUMMARY | 2025-05-24 11:07 | XMS_ITS | Encounter Summary ---
Author Organization [employer] Address [address] [facility] 7t [place] [address] Care Team Providers Care Research And Evaluation Manager Name Role Phone Gavi Aldana Primary Care Provider + [phone] Reason for Visit * Reason Onset Date Comments rs cancelled appt 02/22/2025 Encounter Details Date Type Department Care Team ([facility] st Contact Info) Description 02/22/2025 Telephone [facility] ADULT DENTAL [address] [place] [address] José Miguel Sy DDS [address] [place] [address] rs cancelled appt Social History Tobacco Use [...] would like to reschedule cancelled appt for sabianism with Susan. Yossi morning appt. Please reach out to patient documented in this encounter Plan of Treatment Upcoming Encounters Date Type Department Care Team (Late st Contact Info) Description 07/10/2025 9:30 AM EST Office Visit [facility] ADULT DENTAL [address] [place] [address] José Miguel Sy DDS [address] [place] [address] documented as of this encounter Visit Diagnoses Not on filedocumented in this encounter Additional Health Concerns Assessment Noted Time PHQ-9 Depression Total Score: 2 11/28/19 25 9:14 AM EDT documented as of this encounter Care Teams Research And Evaluation Manager Relationship Specialty Start Date End Date Gavi Aldana DO [address] [place] [address] PCP - General Family Medicine 06/06/18 documented as of this encounter
--- OUTSIDE RECORDS SUMMARY | 2025-05-24 11:07 | XMS_ITS | Encounter Summary ---
Author Organization [employer] Address [address] [place] [address] 7t [place] [address] Care Team Providers Care Loadmaster Name Role Phone Gavi Aldana DO Primary Care Provider [phone] Reason for Visit * Reason Onset Date Comments Chart Prep 05/23/2025 Encounter Details Date Type Department Care Team ([facility] st Contact Info) Description 05/23/2025 Telephone [facility] MEDICINE [address] [place] [address] Gavi Aldana DO [address] [place] [address] Chart Prep Social History Tobacco Use Types Packs/Day Years [...] is your housing situation today? I have lius shields 05/17/[address] you [...] encounter Miscellaneous Notes * Telephone Encounter - Radha Steward MA - 05/23/2025 8:38 AM EST Chart Prep Labs: done Images: done Referrals: complete Vaccines due: Covid, Flu, and RSV Screenings: eye exam and foot exam Overdue care gaps: Glucose documented in this encounter Plan of Treatment Upcoming Encounters Date Type Department Care Team (Late st Contact Info) Description 07/10/2025 9:30 AM EST Office Visit [facility] ADULT DENTAL [address] [place] [address] José Miguel Sy DDS [address] [place] [address] documented as of this encounter Visit Diagnoses Not on filedocumented in this encounter Additional Health Concerns Assessment Noted Time PHQ-9 Depression Total Score: 2 11/28/19 25 9:14 AM EDT documented as of this encounter Care Teams Loadmaster Relationship Specialty Start Date End Date Gavi Aldana DO [address] [place] [address] PCP - General Family Medicine 06/06/18 documented as of this encounter
--- OUTSIDE RECORDS SUMMARY | 2025-05-24 11:07 | XMS_ITS | Encounter Summary ---
Author Organization [facility] [employer] Address [address] [place] [address] [address] [address] Care Team Providers Care Literacy Specialist Name Role Phone Gavi Aldana DO Primary Care Provider [phone] Encounter Details Date Type Department Care Team [...] Description 07/10/2025 9:30 AM EST Office Visit [facility] ADULT DENTAL [address] [place] [address] José Miguel Sy DDS [address] [place] [address] documented as of this encounter Visit Diagnoses Not on filedocumented in this encounter Care Teams Literacy Specialist Relationship Specialty Start Date End Date Gavi Aldana DO [address] [place] [address] PCP - General Family Medicine 06/06/18 documented as of this encounter
--- OUTSIDE RECORDS SUMMARY | 2025-05-24 11:07 | XMS_ITS | Encounter Summary ---
Author Organization [employer] Address [address] [place] [address] 7t [place] [address] Care Team Providers Care Graduate Student Instructor Name Role Phone Gavi Aldana Primary Care Provider + [phone] Reason for Visit * Reason Onset Date Comments rs same day cx/no show 12/03/2024 Encounter Details Date Type Department Care Team ([facility] st Contact Info) Description 12/03/2024 Telephone [facility] ADULT DENTAL [address] [place] [address] José Miguel Sy DDS [address] [place] [address] rs same day cx/no show Social History [...] Miscellaneous Notes * Telephone Encounter - Dayana Mrarufo - 12/03/2024 8:59 AM EDT Patient called [...] Description 07/10/2025 9:30 AM EST Office Visit [facility] ADULT DENTAL [address] [place] [address] José Miguel Sy DDS [address] [place] [address] documented as of this encounter Visit Diagnoses Not on filedocumented in this encounter Additional Health Concerns Assessment Noted Time PHQ-9 Depression Total Score: 2 11/28/19 25 9:14 AM EDT documented as of this encounter Care Teams Graduate Student Instructor Relationship Specialty Start Date End Date Gavi Aldana DO [address] [place] [address] PCP - General Family Medicine 06/06/18 documented as of this encounter
--- OUTSIDE RECORDS SUMMARY | 2025-05-24 11:07 | XMS_ITS | Encounter Summary ---
Author Organization [employer] Address [address] [facility] 7t [place] [address] Care Team Providers Care Skin Drier Name Role Phone Gavi Aldana DO Primary Care Provider + [phone] Encounter Details Date Type Department Care Team (Latest Contact Info) Description 05/24/2025 Travel Social History Tobacco Use Types Packs/Day Years [...] EST Office Visit [facility] ADULT DENTAL [address] [place] [address] José Miguel Sy DDS [address] [place] [address] documented as of this encounter Visit Diagnoses Not on filedocumented in this encounter Additional Health Concerns Assessment Noted Time PHQ-9 Depression Total Score: 2 11/28/19 25 9:14 AM EDT documented as of this encounter Care Teams Skin Drier Relationship Specialty Start Date End Date Gavi Aldana DO [address] [place] [address] PCP - General Family Medicine 06/06/18 documented as of this encounter
--- OUTSIDE RECORDS SUMMARY | 2025-05-24 11:07 | XMS_ITS | Clinical Summary ---
Author Organization [employer] Address [address] [place] [address] 7t [place] [address] Care Team Providers Care Carpenter Bridge Name Role Phone Gavi Aldana DO Primary Care Provider [phone] Allergies Active Allergy Reactions Criticality Noted Date Comments Luis A Inhibitors Cough,Hives 08/10/2010 Medications Skin Protectants, Misc. (Minerin Creme) creamIndicati ons:Dry skin APPLY TO DRY SKIN 2 TO 3 TIMES PER DAY 454 g 4 023 Active Skin Protectants, Misc. (eucerin) cream apply topically to dry skin 2-3times a day 022 Active Nystop 520269 UNIT/GM powder APPLY TO THE AFFECTED AREA(S) [...] INJECT 3-6 UNITS SUBCUTANEOUSLY THREE TIMES DAILY 023 Active BD Pen Needle Thania U/F [...] mg by mouth in the morning. Active UltiCare Short Pen [place] 31G X 8 MM misc USE DIRECTED FOUR TIMES DAILY Active Breo Ellipta 200-25 MCG/ACT aerosol powder INHALE 1 PUFF BY MOUTH EVERY DAY AT THE SAME TIME Active folic acid (Folvite) 1 MG tablet Take 1,000 mcg by mouth in the morning. Active clotrimazole (Lotrimin) 1 % cream APPLY TO THE AFFECTED AREA(S) AND SURROUNDING AREA(S) TOPICALLY TWICE DAILY IN THE MORNING AND IN THE EVENING 60 g 2 Active melatonin 5 MG tablet TAKE 1 OR 2 TABLETS BY MOUTH AT BEDTIME NEEDED FOR SLEEP 60 tablet 3 Active acetaminophen (Tylenol 8 Hour) 650 MG ER tablet TAKE 1 TABLET BY MOUTH EVERY 8 HOURS NEEDED FOR MILD PAIN 30 tablet Active Additional Information Patient not taking.Reported on 05/13/2025 amitriptyline (Elavil) 10 MG tablet Take 0.5 [...] patch after 12 hours. 30 patch Active omeprazole (PriLOSEC) [address] capsule Take 1 capsule (40 mg) by mouth before breakfast and before evening meal. 60 capsule 11 Active fexofenadine (Barbara) 180 MG tablet Take 1 tablet (180 mg) by mouth Once per day. 30 tablet 11 025 2025 Active benzonatate (Tessalon) 100 MG capsule Take 1 capsule (100 mg) by mouth if needed in the morning, at noon, and at bedtime for cough. Do not crush or chew. 30 capsule Active triamcinolone (Nasacort) 55 MCG/ACT nasal inhaler Administer 2 sprays into each nostril Once per day. 16.5 g 11 025 2025 Active baclofen (Lioresal) 10 MG tabletIndicat ions:Acute pain of right shoulder TAKE 1 TABLET BY MOUTH THREE TIMES DAILY NEEDED 42 tablet Active Diclofenac Sodium 1 % gel APPLY 2 GRAMS TO AFFECTED AREA(S) 4 TIMES A DAY IN THE MORNING, AT NOON, IN THE EVENING, AND AT BEDTIME NEEDED FOR PAIN 100 g 5 Active D3 Super Strength 50 MCG (2000 UT) capsule TAKE 1 CAPSULE BY MOUTH EVERY DAY 90 capsule Active Lantus SoloStar 100 UNIT/ML pen 023 2024 Discontinued(M ed list cleanup (will not trigger notification to Pharmacy)) cholecalcifer ol (Vitamin D-3) 50 MCG (2000 UT) capsule Take 1 capsule (50 mcg) by mouth Once per day. 30 capsule 11 024 2024 Discontinued Active Problems Problem Noted Date [...] systolic heart failure 09/08/2022 Paroxysmal atrial flutter ([facility]) 09/08/2022 Chronic gastroesophageal reflux disease 09/09/19 23 [...] reports she was exposed to Covid-19 at tenriism but she always wears a mask Physical exam wnl Rapid strep, Covid and Flu negative Plan: supportive measures, recommended Tylenol prn, pt to test at home if symptoms do not improve or worsen and notify us if positive or worsening of symptoms Pt verbalized understanding Encounters Date Type Department Care Team Description 05/24/2025 9:15 AM EST Office Visit [facility] MEDICINE [address] [place] [phone] Gavi Aldana DO Encounter for immunization; Type 2 diabetes mellitus without complication, with long-term current use of insulin ([facility]) 05/24/2025 Travel 05/23/2025 Telephone [facility] MEDICINE [address] [place] [address] Gavi Aldana DO Chart Prep 05/17/2025 Patient Outreach [facility] MED & PEDS [address] [place] [address] Gavi Aldana DO Pre-visit Planning (SDOH negative. Tobacco screening negative ) 05/13/2025 10:00 AM EST Office Visit [facility] ADULT DENTAL [address] [place] [address] José Miguel Sy DDS Dental caries (Primary Dx) 05/07/2025 Telephone [facility] MEDICINE [address] [place] [phone] Gavi Aldana DO Recall Appointment 05/07/2025 Travel 05/01/2025 Refill [facility] MEDICINE [address] [place] [address] Gavi Aldana DO 04/19/2025 Orders Only GENERIC EXTERNAL DATA DEPARTMENT Provider, Generic External Data 04/16/2025 Orders Only GENERIC EXTERNAL DATA DEPARTMENT Provider, Generic External Data 04/02/2025 Refill [facility] MEDICINE [address] [place] [address] Gavi Aldana, 03/29/2025 8:00 AM EDT Office Visit [facility] ADULT DENTAL [address] [place], [place] [phone] José Miguel Sy DDS Dental caries (Primary Dx); Open fracture of tooth, initial encounter 03/25/2025 Refill [facility] MED [facility] PEDS [address] [place], [place] [phone] Candi Loaiza MD Acute pain of right shoulder 02/22/2025 Telephone [facility] ADULT DENTAL [address] [place] [address] José Miguel Sy DDS rs cancelled appt from Last 3 Months Immunizations Immunization Administration Dates Next Due Hep B, adult 01/15/2015,08/07/2014,07/10/2014 Influenza High-dose Quadriva lent Preservative Free 03/01/2022,03/10/2020 Influenza injectable quadriv alent IIV4 with preservative 03/24/2016,04/14/2015 Influenza injectable quadriv alent preservative free 06/15/2023,04/06/2017,02/26/2014 Influenza, High Dose Seasona l, Preservative Free 05/24/2025,02/28/2024,05/25/2019,03/08 Influenza, IIV3, injectable 04/09/2014,0 02/22/2013,03/25/2011,02/13 Influenza, Split [...] 16 05/24/2025 9:16 AM EST Oxygen Saturation 96% 11/27/2024 9:10 AM EDT Inhaled Oxygen Concentration - - Weight 60.8 kg (134 lb) 05/24/2025 9:16 AM EST Height 149.9 cm (4' 11 ) 05/24/2025 9:16 AM EST Body Mass Index 27.06 05/24/2025 9:16 AM EST Plan of Treatment Upcoming Encounters Date Type Department Care Team (Late st Contact Info) Description 07/10/2025 9:30 AM EST Office Visit [facility] ADULT DENTAL [address] [place] [address] José Miguel Sy, DDS [address] [place] [address] Health Maintenance Due Date Last Done Comments Diabetes: Foot Exam 1960 Eye Exam 1960 Dental Prophylaxis 09/09/2022 03/10/2022, 0 09/25/2018, 11/16/2017, Additional history exists RSV Patients and Patients Aged 60 years or older (1 - 1-dose 75+ series) 11/24/2023 Lipid Panel 09/19/2024 09/20/2023, 05/, 10/19/2021, Additional history exists Dental Oral Exam 01/02/2025 07/04/2024, 10/2021, 09/25/2018, Additional history exists COVID-19 Vaccine ( season) 2025 07/14/2021, 06/23/2021 Dental X-Ray: Full Mouth 03/11/2025 03/10/2022, 12/04 Alcohol/Substance Use Screening 05/28/2025 05/28/2024 Dental X-Ray: Bitewings 07/05/2025 07/04/19, 03/10/2022, 11/16/2017, Additional history exists Diabetes: Hemoglobin A1C 07/20/2025 025, 11/27/2024, 08/15/2024, Additional history exists Depression Screening 11/27/2025 11/27/2024, 11/28/19 Diabetes: Urine Protein Screening 04/19/2026 04/19/2025, 09/20/2023, 10/13/2022, Additional history exists SDOH Screening 05/17/2026 05/17/2025 Tobacco Screening 05/24/2026 05/24/2025 DTaP/Tdap/Td Vaccines (3 - Td or Tdap) 02/10/2031 02/10/2021, 05/21/2010 Hepatitis B Vaccines Completed 01/15/2015, 08/07/2014, 07/10/2014 Colonoscopy Discontinued 07/28/2021 Colorectal Cancer Screening Discontinued Pneumococcal Vaccine: 50+ Years Completed 01/05/2023, 11/20/2015, 10/15/2014, Additional history exists Zoster Vaccines Completed 07/20/2023, 12/04, 08/07/2014 Hepatitis C Screening Completed 09/04/2024 , 05/09/2024, 06/18/2019 Influenza Vaccine Completed 05/24/2025, , 06/15/2023, Additional history exists CT Colonography Discontinued FIT DNA/Cologuard Discontinued FIT [...] complication, with long-term current use of insulin ([facility]) CASE PRESENTATION, DETAILED AND EXTENSIVE TREATMENT PLANNING Routine 05/13/2025 10:00 AM EST 21 B(V) RESIN-BASED COMPOSITE - 1 SURF, POSTERIOR Routine 05/13/2025 10:00 AM EST 20 DB(V) RESIN-BASED COMPOSITE - 2 SURF, POSTERIOR Routine 05/13/2025 10:00 AM EST IMMUNOFIXATION, SERUM Routine 04/19/2025 8:26 AM EST HEMOGLOBIN A1C Routine 04/19/2025 8:26 AM EST IMMUNOFIXATION, URINE Routine 04/19/2025 8:22 AM EST PROTEIN CREATININE RATIO, URINE Routine 04/19/2025 8:22 AM EST GLUCOSE, WHOLE BLOOD Routine 04/16/2025 9:03 AM EST CASE PRESENTATION, DETAILED AND EXTENSIVE TREATMENT PLANNING Routine 03/29/2025 8:00 AM EDT 8 MIDL RESIN-BASED COMPOSITE - 4 OR MORE SURFACES (ANTERIOR) Routine 03/29/2025 8:00 AM EDT HEPATITIS PANEL, GENERAL Routine 09/04/2024 [...] Recently Relevant to Health Maintenance Results * POCT Glucose (05/24/2025 9:24 AM EST) Pathologist [facility] Glucose Blood, POC 176 60 - 200 mg/dL Comment:random QC Media Lot # [id number] Lot# Expiration Date Blood Capillary blood specimen / Unknown 05/24/2025 9:24 AM EST Gavi Aldana DO POINT OF CARE TEST ENTER/DIAMANTE T ORDERABLES Final Result * (ABNORMAL) Immunofixation, Serum (04/19/2025 8:26 AM EST) [facility] IMMUNOGLOBULIN G 1522 600 - 1540 mg/dL [facility] IMMUNOGLOBULIN A 378(A) 70 - 320 mg/dL [facility] Immunoglobulin M 183 50 - 300 mg/dL [facility] Comment:THIS TEST WAS PERFOR MED AT:[facility] [place] [phone] ULLOA MD Immunofixation Result SEE NOTE [facility] Comment:Normal pattern. No m onoclonal proteins detected. 04/19/2025 8:26 AM EST 04/19/2025 8:26 AM EST us Generic External Data Provider LAB BLOOD ORDERAB LES Final Result [facility] [address] [place] [address] [phone] * (ABNORMAL) Hemoglobin A1c (04/19/2025 8:26 AM EST) [facility] Hemoglobin A1c 8.2(H) <6.0 % [facility] Comment:Hemoglobin A1C Refer ence Range Adults: 4.8 - 6.0 % Non diabetic: < 6.0 % Goal: < 7.0 %Additional Action Suggested: > 8.0 %Note: Hemoglobin A1c results are invalid for patients with abnormal amounts of HbF. Blood transfusions may impact the HbA1c concentration in the patient sample. Estimated Average Glucose 189 mg/dL [facility] Comment:eAG = Estimated ave rage glucose which is %A1C expressed asaverage glucose, using the formula of the S1M-PacmfrqWsxmvdc Glucose study (ADAG), Diabetes Care, Vol.31,#8,2007 04/19/2025 8:26 AM EST 04/19/2025 8:26 AM EST Generic External Data Provider LAB BLOOD ORDERAB LES Final Result Performing Organization Address [facility] Co de Phone Number [facility] [address] [place] [phone] * (ABNORMAL) Protein Creatinine Ratio, Urine (04/19/2025 8:22 AM EST) Creatinine, Urine 38.29 mg/dL [facility] Protein, Total, Random Urine 27(H) <12 mg/dL [facility] Protein/Creati nine Ratio, Ur 0.71(H) <0.2 [facility] Comment:The spot urine prote in:creatinine ratio may increase to 0.3during normal . 04/19/2025 8:22 AM EST 04/19/2025 9:13 AM EST Generic External Data Provider LAB URINE ORDERAB LES Final Result Performing Organization Address [facility] Co de Phone Number [facility] [address] [place] [phone] * Immunofixation (VIKY), Urine (04/19/2025 8:22 AM EST) VIKY Interpretation [facility] Comment:No monoclonal protei ns detectedTHIS TEST WAS PERFORMED AT:[facility] [place] [phone] ULLOA MD 04/19/2025 8:22 AM EST 04/19/2025 9:13 AM EST Generic External Data Provider LAB URINE ORDERAB LES Final Result Performing Organization Address [facility] Co de Phone Number [facility] [address] [place] [phone] * (ABNORMAL) Glucose, Whole Blood (04/16/2025 9:03 AM EST) Pathologist [facility] Glucose, Whole Blood 205(H) 60 - 115 mg/dL [facility] Comment:METER #: [id number] 0Testing performed in the Endocrinology Department [address] , [address], [facility]. 04/16/2025 9:03 AM EST 04/16/2025 9:14 AM EST Generic External Data Provider LAB BLOOD ORDERAB LES Final Result Performing Organization Address [facility] de Phone Number [facility] [address] [place] [phone] * Hepatitis Panel, General (09/04/2024 9:02 AM EDT) [facility] Hepatitis A IgM Nonreactive Nonreactive [facility] Comment:IgM antibodies to MCCANN V not detected; does not exclude earlyacute or recovered HAV infection. ~Hepatitis B Surface Antibody REACTIVE Nonreactive [facility] Comment:REACTIVE: > 11.99 mI U/mL Hepatitis B Core Antibody Nonreactive Nonreactive [facility] Hepatitis C Antibody Nonreactive Nonreactive [facility] Comment:Antibodies to HCV no t detected; does not exclude early acuteHCV infection. Hepatitis B Surface Ag Negative Negative [facility] 09/04/2024 9:02 AM EDT 09/04/2024 9:02 AM EDT us Generic External Data Provider LAB BLOOD ORDERAB LES Final Result Performing Organization Address [facility] Co de Phone Number [facility] [address] [place] [phone] * Lipid Panel, Standard (09/20/2023 7:27 AM EDT) Triglycerides 96 <150 mg/dL [facility] Comment:Desirable Triglyceri de: less than 150 mg/dLBorderline High Triglyceride 150-199 mg/dLHigh Triglyceride: 200-499 mg/dLVery High Triglyceride: greater than or equal to 5OO mg/dL Cholesterol 139 <200 mg/dL [facility] Comment:Desirable Cholestero l: less than 200 mg/dLBorderline High Cholesterol: 200-239 mg/dLHigh Cholesterol: greater than 239 mg/dL LDL Cholesterol Calculated 69 <100 mg/dL [facility] Comment:Desirable LDL: less than 100 mg/dLNear [...] DO LAB BLOOD ORDERABLES Final R esult [facility] [address] [place] [phone] [phone] * Hm Colonoscopy (07/28/2021 2:52 PM EST) Historical Provider HEALTH MAINTENANCE Final Result from Last 3 Months or Most Recently Relevant to Health Maintenance Insurance [employer] (HMO D-SNP) [address] [place] [id number] [place] [id number] Care Teams Carpenter Bridge Relationship Specialty Start Date End Date Gavi Aldana DO [address] [place] [phone] PCP - General Family Medicine 06/06/18
--- OUTSIDE RECORDS SUMMARY | 2025-05-24 11:07 | XMS_ITS | Clinical Summary ---
Author Organization 175 [facility] Address [address] [place] [address] Phone Care Team Providers Care Profile Shaper Operator Name Role Phone SamanthaGavi davis Ej [place] Primary Care Provider +1- [phone] Allergies Active Allergy Reactions Criticality Noted Date [...] 8:45 AM EDT Office Visit Orthopedic Surgery [facility] [address] [phone] Kota De La Torre DPM Tinea pedis of both feet (Primary Dx); Dermatophytosis of nail; Primary osteoarthritis of both feet; Type II diabetes mellitus with peripheral circulatory disorder ([facility] V24, [facility] V28); Diabetic mononeuropathy simplex ([facility] V24, [facility] V28); Peripheral venous insufficiency; Pain in toe [...] Info) Description 05/27/2025 10:00 AM EST Appointment [facility] Ultrasound [address] [place] [phone] 06/03/2025 9:15 AM EST Office Visit Orthopedic Surgery [facility] [address] [phone] Kota De La Torre DPM [address] [phone] 06/13/2025 3:00 PM EST Office Visit Vascular Surgery - [place] [address] [place] [address] Tiffanie Holbrook MD [address] [place] [phone] Health Maintenance Due Date Last Done [...] patient's age to complete this topic Insurance [facility] OPTIONS Member Subscriber Plan / Payer (Ef fective 2014-Present) Name:Candi Sanchez Relation to Subscriber:Self Name:Candi Sanchez Payer ID:[id number] Group ID:[id number] Type:Not on file Address: [place] [address] [address] [phone] Care Teams Profile Shaper Operator Relationship Specialty Start Date End Date Gavi Aldana DO [address] [place] [address] PCP - General Internal Medicine 10/27/11
--- OUTSIDE RECORDS SUMMARY | 2025-05-24 11:07 | XMS_ITS | Encounter Summary ---
Author Organization [employer] Address [address] [place] [address] [address] [place] [address] Care Team Providers Care Asphalt Still Operator Name Role Phone Gavi Aldana DO Primary Care Provider +1- [phone] Encounter Details Date Type Department Care Team (Late Contact Info) Description 12/14/2022 Orders Only [facility] CHC MED & PEDS [address] [place] [address] Gavi Duarte LPN Social History Tobacco Use [...] Description 07/10/2025 9:30 AM EST Office Visit [facility] ADULT DENTAL [address] [place] [address] José Miguel Sy DDS [address] [place] [address] documented as of this encounter Visit Diagnoses Not on filedocumented in this encounter Care Teams Asphalt Still Operator Relationship Specialty Start Date End Date Gavi Aldana DO [address] [place] [address] PCP - General Family Medicine 06/06/18 documented as of this encounter
--- OUTSIDE RECORDS SUMMARY | 2025-05-24 11:07 | XMS_ITS | Encounter Summary ---
Author Organization [employer] Address [address] [facility] 7t [place] [address] Care Team Providers Care Valver Name Role Phone FlacoGavi humphreys Primary Care Provider + [phone] Encounter Details Date Type Department Care Team (Late st Contact Info) Description 09/14/2023 Orders Only [facility] MEDICINE [address] [place] [address] Provider, MD [place] Social History Tobacco Use [...] Description 07/10/2025 9:30 AM EST Office Visit [facility] ADULT DENTAL [address] [place], [place] [phone] José Miguel Sy DDS [address] [place], [place] [phone] documented as of this encounter Procedures Procedure [...] documented as of this encounter Care Teams Valver Relationship Specialty Start Date End Date Gavi Aldana DO [address] [place] [address] PCP - General Family Medicine 06/06/18 documented as of this encounter
--- OUTSIDE RECORDS SUMMARY | 2025-05-24 11:08 | XMS_ITS | Encounter Summary ---
Author Organization [facility] Address [address] [place] [address] [address] [address] Care Team Providers Care Leaf Stripper Name Role Phone Gavi Aldana DO Primary Care Provider +1- [phone] Reason for Visit * Reason Comments Med Refill Encounter Details Date Type Department Care Team ([facility] Contact Info) Description 10/11/2022 Refill [facility] MEDICINE [address] [place] [address] Gavi Aldana DO [address] [place] [address] Other chronic pain Social History Tobacco Use [...] Department Care Team (Late Contact Info) Description 07/10/2025 9:30 AM EST Office Visit [facility] ADULT DENTAL [address] [place] [address] José Miguel Sy DDS [address] [place] [address] documented as of this encounter Visit Diagnoses Diagnosis Other chronic pain documented in this encounter Care Teams Leaf Stripper Relationship Specialty Start Date End Date Gavi Aldana DO [address] [place] [address] PCP - General Family Medicine 06/06/18 documented as of this encounter
--- OUTSIDE RECORDS SUMMARY | 2025-05-24 11:08 | XMS_ITS | Encounter Summary ---
Author Organization [employer] Address [address] [place] [address] 7[address] [place] [address] Care Team Providers Care Analytical Laboratory Technician Name Role Phone Gavi Aldana DO Primary Care Provider [phone]- [phone] Encounter Details Date Type Department Care Team (Late st Contact Info) Description 07/22/2022 Orders Only [facility] CHC MED & PEDS [address] [place] [address] Gavi Duarte LPN Social History Tobacco Use [...] EST Office Visit [facility] ADULT DENTAL [address] [place] [address] José Miguel Sy DDS [address] [place] [address] documented as of this encounter Visit Diagnoses Not on filedocumented in this encounter Care Teams Analytical Laboratory Technician Relationship Specialty Start Date End Date Gavi Aldana DO 230 [place] [address] PCP - General Family Medicine 06/06/18 documented as of this encounter
--- OUTSIDE RECORDS SUMMARY | 2025-05-24 11:08 | XMS_ITS | Encounter Summary ---
Author Organization [employer] [facility] Address [address] [place] [address] 7t [place] [address] Care Team Providers Care Pantry Goods Maker Name Role Phone Gavi Aldana DO Primary Care Provider [phone]- [phone] Encounter Details Date Type Department Care Team (Late st Contact Info) Description 06/22/2022 Orders Only [facility] MEDICINE [address] [place] [address] Tamara Floyd LPN Social History Tobacco Use [...] Description 07/10/2025 9:30 AM EST Office Visit [facility] ADULT DENTAL [address] [place], [place] [phone] José Miguel Sy DDS [address] [place], [place] [phone] documented as of this encounter Procedures Procedure Name Priority Date/Time Associated Diagnosis Comments GLUCOSE, WHOLE BLOOD Routine 07/06/2022 10:44 AM EST documented in this encounter Results * (ABNORMAL) Glucose, Whole Blood (07/06/2022 10:44 AM EST) Glucose, Whole Blood 204(H) 60 - 115 mg/dL [facility] Comment:METER #: [id number] 5Testing performed in the Endocrinology Department [address] , [address], [facility]. 07/06/2022 10:4 4 AM EST 07/06/2022 10:48 AM EST [facility] External Provider LAB BLO OD ORDERABLES Final Result Performing Organization Address City/State/[facility] Co de Phone Number [facility] [address] [place] [address] [phone] documented in this encounter Visit Diagnoses Not on filedocumented in this encounter Care Teams Pantry Goods Maker Relationship Specialty Start Date End Date Gavi Aldana DO [address] [place] [address] PCP - General Family Medicine 06/06/18 documented as of this encounter
[2025-05-24 13:09] LABS: Hematocrit 37.5 % (37.0-47.0); Hemoglobin 11.8 g/dl (12.0-16.0); Imm Gran Abs Auto 0.03 X10*3/uL (0.00-0.03); Imm Gran Pct Auto 0.5 % (0.0-0.4); Lymphocytes Absolute Auto 1.4 X10*3/uL (1.2-4.9); MANUAL DIFF FLAG SCAN; Mean Corpuscular HGB Conc 31.5 g/dl (31.0-35.0); Mean Corpuscular Hemoglobin 23.4 pg (27.0-33.0); Mean Corpuscular Volume 74.4 fL (80.0-98.0); NRBC Abs Auto 0.000 X10*3/uL (0.0-0.012); NRBC Pct Auto 0.0 /100WBC (0.0-0.2); PLT CLUMP 1; Red Blood Count 5.04 X10*6/uL (4.20-5.50); SCAN SMEAR FLAG 1
[2025-05-24 13:11] LABS: White Blood Count 6.4 X10*3/uL (4.8-10.8)
[2025-05-24 13:24] LABS: Platelet Count 111 X10*3/uL (160-400)
[2025-05-24 13:33] LABS: Alanine Aminotransferase 15 U/L (0-31); Albumin Level 3.4 g/dL (3.5-5.0); Alkaline Phosphatase 98 U/L (39-117); Anion Gap 10 (12-20); Aspartate Amino Transferase 26 U/L (5-31); Blood Urea Nitrogen 26 mg/dL (9-16); Calcium 9.4 mg/dL (8.4-10.2); Carbon Dioxide 28 mmol/L (22-29); Chloride 109 mmol/L (96-108); Estimated Glomerular Filt Rate 56; Potassium 3.8 mmol/L (3.3-5.1); Sodium 143 mmol/L (135-145); Total Protein 6.7 g/dL (6.5-8.0)
[2025-05-24 13:38] LABS: Alanine Aminotransferase 25 U/L (0-31); Albumin Level 3.5 g/dL (3.5-5.0); Alkaline Phosphatase 99 U/L (39-117); Anion Gap 11 (12-20); Aspartate Amino Transferase 26 U/L (5-31); Blood Urea Nitrogen 26 mg/dL (9-16); Calcium 9.5 mg/dL (8.4-10.2); Carbon Dioxide 27 mmol/L (22-29); Chloride 108 mmol/L (96-108); Cholesterol 181 mg/dL (<200); Estimated Glomerular Filt Rate 57; HDL Cholesterol 61 mg/dL (>40); Potassium 4.0 mmol/L (3.3-5.1); Sodium 142 mmol/L (135-145); Total Protein 6.8 g/dL (6.5-8.0); Triglycerides 94 mg/dL (<150)
[2025-05-24 13:56] LABS: Free T4 (Free Thyroxine) 1.10 ng/dL (0.71-1.85)
[2025-05-24 13:57] LABS: Microalbum/Creatinine Ratio Ur 308.8 ug/mg cr (<30)
[2025-05-24 14:00] LABS: Thyroid Stimulating Hormone 0.96 uIU/mL (0.32-4.0)
== END 2025-05-24 09:59 | disposition home or self-care (01) ==
LOC: HO.HHCL 09:58
PROVIDERS: Internal Medicine Medical Oncology; PCP Family Medicine; Referring Provider Student in an Organized Health Care Education/Training Program; Visit Provider Internal Medicine Nephrology
DX: Z00.00 Encounter for general adult medical examination without abnormal findings (principal); E10.9 Type 1 diabetes mellitus without complications; I10 Essential (primary) hypertension; E78.49 Other hyperlipidemia; I42.8 Other cardiomyopathies; D69.3 Immune thrombocytopenic purpura; M05.9 Rheumatoid arthritis with rheumatoid factor, unspecified; M25.511 Pain in right shoulder; G89.29 Other chronic pain; M25.512 Pain in left shoulder; R91.8 Other nonspecific abnormal finding of lung field; E04.2 Nontoxic multinodular goiter; R05.3 Chronic cough; R93.89 Abnormal findings on diagnostic imaging of other specified body structures; R51.9 Headache, unspecified; G47.30 Sleep apnea, unspecified; M54.50 Low back pain, unspecified; R31.29 Other microscopic hematuria; D69.6 Thrombocytopenia, unspecified; Z79.899 Other long term (current) drug therapy; Z13.21 Encounter for screening for nutritional disorder
CPT/HCPCS: 36415; 80053; 80061; 82043; 82248; 82306; 82570; 83036; 84439; 84443; 85025; 85652; 86140

== ENCOUNTER 2025-05-31 09:09 | Outpatient (AMB) | payer OTHER, SELFPAY ==
--- OUTSIDE RECORDS SUMMARY | 2025-05-31 09:12 | XMS_ITS | Clinical Summary ---
Author Organization 175 [facility] Address [address] [place] [address] Phone Care Team Providers Care Ceiling Cleaner Name Role Phone SamanthaGavi davis Ej [place] Primary Care Provider +1- [phone] Allergies Active Allergy Reactions Criticality Noted Date [...] AM EDT Office Visit Orthopedic Surgery - [place] [address] [place] [address] Kota De La Torre, DPM Tinea pedis of both feet (Primary Dx); Dermatophytosis of nail; Primary osteoarthritis of both feet; Type II diabetes mellitus with peripheral circulatory disorder ([facility] V24, [facility] V28); Diabetic mononeuropathy simplex ([facility] V24, [facility] V28); Peripheral venous insufficiency; Pain in toe [...] Care Team (Late st Contact Info) Description 06/13/2025 3:00 PM EST Office Visit Vascular Surgery - [place] [address] [place] [address] Tiffanie Holbrook MD [address] [place] [phone] Health Maintenance Due Date Last Done Comments Diabetes: Annual Foot Exam 1960 Diabetes: Annual Retina Eye Exam 1960 RSV Immunization Adult Patients (1 - 1-dose 75+ series) 11/24/2023 Diabetes: Annual Urine Albumin-Creatinine Ratio (uACR) 04/07/2024 Falls Risk Assessment 04/07/2024 Hepatitis C Screening 04/07/2024 Medicare Annual Wellness Visit 04/07/2024 Osteoporosis Screening (Bone Density Screening) 04/07/2024 [...] patient's age to complete this topic Insurance [facility] OPTIONS Member Subscriber Plan / Payer (Ef fective 2014-Present) Name:Sanchez, Candi Relation to Subscriber:Self Name:Daniel [place] Payer ID:[id number] Group ID:[id number] Type:Not on file Address: [place] [address] [address] [phone] Care Teams Ceiling Cleaner Relationship Specialty Start Date End Date Gavi Aldana DO [address] [place], [place] PCP - General Internal Medicine 10/27/11
--- OUTSIDE RECORDS SUMMARY | 2025-05-31 09:12 | XMS_ITS | Data Portability ---
Author Organization [employer], [facility] Address [address] [place] [address] Assessment Encounter Date Assessment Date Assessment LastModified by Organization Details LastModified Time 03/17/2023 03/17/2023 As noted, we were called to see this patient regarding concerns of cough. Evaluation in the field was performed by my air pollution auditor colleague, as noted above, I provided real-time [...] Vitals Date Recorded Heart rate Oxygen saturation Respiratory rate Body temperature Systolic And Diastolic Provider Name and Address Organization Details Last Updated DateTime 3 92 /min 97 % 16 /min 98.1 [degF] 149/88 mm[Hg] Not Available [employer] 3 19:40:55 Social History None [...] ICD10 Code Diagnosis IMO Codes Diagnosis Note [id number] Amparo Marley MD [facility] - [address] [phone] 03/17/2023 19:40:50 03/17/2023 19:55:52 Health Concerns Section Related Observation LastModified by Organization Detai ls LastModified Time None Recorded Concern Status LastModified by Organization Details LastModified Time None Recorded Advance Directives Directive None Recorded Payers Insurance Date Sequence Insurance Name Policy Number Policy Ivy Covered Member ID Ivy Member ID Guarantor Name 05/05/2024 1 [facility] - DOS ON OR AFTER 2022 - DUAL ELIGIBLE - HALF-WAY OPTIONS AND ONE [employer] (MEDICARE REPLACEMENT/ADV ANTAGE - HMO) Candi Sanchez [id number] Candi Sanchez Notes Date Note Type Note [...] CRC RN DID NOT NEED FURTHER INFO [facility] HPI: 3 weeks, sore throat throughout, cough throughout. dry cough. has never had something like this before. some sour taste, depending on what she ate. no abdominal, a little epigastric burning. Saw provider, got tessalon perles, initially helpful but then. a little congested, sore throat.she has a board layer - she is not sure why, thinks b/c at some point she had water on her lungs when living [place] related to her heart but that hasn't happened in a long time. Amparo Marley MD [address] [facility],[address], [place], [address], [employer] 03/17/2023 19:55:51 OBGyn Episode No OBEpisode recorded.
--- OUTSIDE RECORDS SUMMARY | 2025-05-31 09:12 | XMS_ITS | Data Portability ---
Author Organization [place] - [facility], Allergy Address [address] [address] Care Team Providers Care Last Ironer Name Role Phone MARTINEZ VIZCARRA Primary Care Provider [phone] Assessment Encounter Date Assessment Date Assessment LastModified [...] copy of the audiogram, a list of [facility] hearing aid providers, and medical [...] Organization Details Recorded Time Dizziness and giddiness 341857282 Active 2018 Dizziness and giddiness ; Note: Date Diagnosed : 01/25/2019 11:02 AM (R42) Not Available [facility] 4 02:39:47 Impacted cerumen of bilateral ears 79755718024 64534 Active 2018 Impacted cerumen, bilateral ; Note: Date Diagnosed : 01/25/2019 11:05 AM (H61.23) Not Available [facility] 4 02:39:43 Bilateral tinnitus 67851180271 02 Active 2018 Tinnitus, bilateral ; Note: Date Diagnosed : 01/25/2019 11:24 AM (H93.13) Not Available [facility] 4 02:39:43 Benign paroxysma l positiona l vertigo 278308544 Active 2018 Benign paroxysma l vertigo, unspecifi ed ear; Note: Date Diagnosed : 01/25/2019 11:03 AM (H81.10) Not Available [facility] 4 02:39:53 Sensorine ural hearing loss of bilateral ears 685991099 Active 2018 Sensorine ural hearing loss, bilateral ; Note: Date Diagnosed : 01/25/2019 11:24 AM (H90.3) Not Available [facility] 4 02:39:48 Cough 86038539 Active 2020 Cough, unspecifi ed; Note: Changed from R05 to R05.9 ( 4 9:23 AM) , Date Diagnosed : 02/11/2021 10:17 AM (R05) WYATT NAVA MD [address] [place] [address], [place], [address] , [facility] - [facility] 4 10:02:57 Allergic rhinitis 08768990 Active 2023 Allergic rhinitis, unspecifi ed; Note: Date Diagnosed : 08/01/2023 10:25 AM (J30.9) Not Available [facility] 02:39:50 Nasal congestio n 84743629 Active 2023 Nasal congestio n; Note: Date Diagnosed : 08/01/2023 10:25 AM (R09.81) Not Available [facility] 02:39:53 Gastroeso phageal reflux disease without esophagit is 888631465 Active 2023 Gastro-es ophageal reflux disease without esophagit is; Note: Date Diagnosed : 08/25/2023 10:32 AM (K21.9) Not Available [facility] 02:39:48 Problem Notes None recorded. Procedures Surgical History Date Name Laterality Status Provider Name and Address Organization Details Recorded Time 07/30/19 25 Wax_DP completed WYATT NAVA MD [address] [place] [address], [phone], [facility] 07/30/2024 08:53:51 07/30/19 25 Air only Audio - 12143 completed JENA SALES [address], [address], [facility] 07/30/2024 09:17:09 07/30/19 25 Tympanometry - 62134 completed JENA SALES [address], [address], [facility] 07/30/2024 09:17:15 Imaging Results None recorded. Procedure [...] mg tablet 04/27 completed Medicati on ID: [id number] B rand Name: atorvast atelijah Sen d Method: E-Prescr ibed Sub s Allowed: subs OK Speci al Instruct ion: TOME PRAVEEN TABLETA TODOS LOS D AL ACOSTARS E Medica tionGene ricName: atorvast atin Not Available Not Available Not Available Vitamin C 500 mg tablet active Medicati on ID: [id number] B rand Name: Vitamin C Send Method: [...] layed release 02/11 completed Medicati on ID: [id number] D uration Value: 90 Brand Name: aspirin Send Method: E-Prescr ibed Sub s Allowed: subs OK Speci al Instruct ion: TOME PRAVEEN TABLETA POR V?A ORAL TODOS LOS D? Med icationG enericNa me: aspirin Not Available Not Available Not Available tramadol 50 mg tablet active Medicati on ID: [id number] B rand Name: tramadol Send Method: E-Prescr ibed Sub s Allowed: subs OK Medic ationGen ericName : tramadol Not Available Not Available Not Available spironola ctone 25 mg tablet active Medicati on ID: [id number] B rand Name: spironol actone S end [...] 10 mg tablet active Medicati on ID: [id number] B rand Name: baclofen Send Method: E-Prescr ibed Sub s Allowed: subs OK Speci al Instruct ion: TAKE 1 TABLET BY MOUTH 3 TIMES EVERY DAY NEEDED FOR MUSCLE SPASM/PA IN Medic [facility] ericName : baclofen Not Available Not Available Not Available benzonata te 100 mg capsule TAKE 1 CAPSULE BY MOUTH THREE TIMES DAILY NEEDED FOR COUGH active Not Available Not Available No t Available pantopraz ole 40 mg tablet,de layed release active Medicati on ID: 132641 B rand Name: pantopra zole Sen d Method: E-Prescr ibed Sub s Allowed: subs OK [facility] ericName : pantopra zole Not Available Not Available Not Available ferrous sulfate 325 mg (65 mg iron) tablet 04/27 completed Medicati on ID: [id number] B rand Name: ferrous sulfate Send Method: [...] mg tablet 02/11 completed Medicati on ID: [id number] D uration Value: 90 Brand Name: metoprol [...] (0.125 mg) tablet active Medicati on ID: [id number] B rand Name: digoxin Send Method: E-Prescr [...] mg capsule 02/11 completed Medicati on ID: [id number] B rand Name: gabapent in Send Method: E-Prescr ibed Sub s Allowed: subs OK Medic ationGen ericName : gabapent in Not Available Not Available Not Available Novolog U-100 Insulin aspart 100 unit/mL subcutane ous solution active Medicati on ID: [id number] B rand Name: Novolog U-100 Insulin aspart S end Method: E-Prescr ibed Sub s Allowed: subs OK Speci al Instruct ion: UP TO 100 UNITS VIA INSULIN PUMP SUBCUT DAILY Me dication GenericN norma: Novolog U-100 Insulin aspart Not Available Not Available Not Available nystatin 100,000 unit/gram topical powder 04/27 completed Medicati on ID: [id number] B rand Name: nystatin Send Method: E-Prescr ibed Sub s Allowed: subs OK Speci al Instruct ion: APLIQUE AL LIAT AFECTADA DOS VECES AL D A Medica tionGene ricName: nystatin Not Available Not Available Not Available albuterol sulfate HFA 90 mcg/actua tion aerosol inhaler 02/11 completed Medicati on ID: 668006 B rand Name: albutero l sulfate Send Method: E-Prescr ibed Sub s Allowed: subs OK Speci al Instruct ion: TOME DOS INHALACI ONES POR V A ORAL CADA CUATRO A SEIS HORAS CUANDO SEA NECESARI O Medica tionGene ricName: albutero l sulfate Not Available Not Available Not Available fluticaso ne propionat e 50 mcg/actua tion nasal spray,lalo pension active Medicati on ID: [id number] B rand Name: fluticas one propiona te [...] 40 mg tablet active Medicati on ID: 694480 B rand Name: valsarta n Send Method: [...] mg-50 mg tablet active Medicati on ID: [id number] B rand Name: Senna Plus Sen d [...] ion nasal spray active Medicati on ID: 131330 B rand Name: Narcan S end Method: [...] pen injector 02/11 completed Medicati on ID: [id number] D uration Value: 30 Brand Name: Ozempic [...] Available Not Available Not Available Dexcom G7 Packing Machine Operator USE DIRECTED active Not Available Not Available [...] Updated DateTime 07/30/2024 149.86 cm 26.7 kg/m2 86920.19 g Nash [place] [facility] 07/30/2024 08:41:37 Date Recorded Body height Body mass index (BMI) Body weight Provider Name and Address Organization Details Last Updated DateTime 04/27/2024 149.86 cm 26.7 kg/m2 19403.19 g Susy Vera [place] - [facility] 04/27/2024 09:48:20 Social History None recorded. Functional Status None recorded. Mental Status None recorded. Family History Nothing Reported. Medical History Condition Response Diabetes Y Gynecological HistoryNo gynecological history recorded. Obstetrics History GPAL:G 0 P 0 0 0 0 Past Encounters Encounter ID Performer Location Encounter Start Date Encounter Closed Date Diagnosis/Indication Diagnosis SNOMED-CT Code Diagnosis ICD10 Code Diagnosis IMO Codes Diagnosis Note [id number] WYATT NAVA MD [facility] [address] [address] 04/27/2024 09:29:27 04/27/2024 10:08:17 Cough 81052637 R05.9 Sensorineu ral hearing loss of bilateral ears 666026872 H90.3 [id number] WYATT NAVA MD [facility] [address] [address] 07/30/2024 08:36:37 07/30/2024 09:43:52 Sensorineural hearing loss of bilateral ears 497513211 H90.3 Audiologic al evaluation results: Right ear: Mild sloping to severe sensorineu ral hearing loss Left ear: Mild sloping to severe sensorineu ral hearing loss Tympanomet ry: Right Ear:Type As Left Ear:Type As Impacted c erumen of bilateral ears [id number] 731652 H61.23 Ears were meticulous ly cleaned bilaterall [...] Policy Number Policy Ivy Covered Member ID Viy Member ID Guarantor Name 04/27/2024 1 [facility] (MEDICARE REPLACEMENT/ADV ANTAGE - HMO) Candi Campbell Sanchez [id number] Candi Sanchez 05/02/2024 2 [facility] (MEDICARE REPLACEMENT/ADV ANTAGE - HMO) Candi Sanchez [id number] Candi Sanchez 07/30/2024 1 [facility] - DOS ON OR AFTER 2022 - DUAL ELIGIBLE - MEDICARE ADVANTAGE [place] (MEDICARE REPLACEMENT/ADV ANTAGE - HMO) Candi Campbell Sanchez [id number] Candi Sanchez 02/25/2025 1 [facility] - DOS ON OR AFTER 2022 - SKILLED NURSING OPTIONS (MEDICARE REPLACEMENT/ADV ANTAGE - HMO) Candi Sanchez [id number] Candi Sanchez Notes Date Note Type Note [...] 2 pills. Rx famotidine WYATT NAVA MD [address] [place] [address], [phone], [facility] [place] 04/27/2024 10:06:17 07/30/2024 text/html IPad - Spanishhearing lossdid not pursue hearing aids in past year 08/01/23 Dr Kern audiomild sloping to severe B SNHLcleared for B HAE PV 04/27/24 Iris - cough - improved with meds from pulm WYATT NAVA MD [address] [place] [address],[address], [address], [facility] - [facility] 07/30/2024 09:42:27 OBGyn Episode No OBEpisode recorded.
[2025-05-31 09:28] VITALS: BP 110/54; PULSE 61; O2SAT 96; BMI 27.3
--- NOTE | 2025-05-31 09:28 | HO.NEPHOV_ITS ---
Vital Signs 05/31/25 09:28 Height 4 ft 11 in Weight 135 lb BMI 27.3 BP 110/54 L Blood Pressure Location Lt brachial Position Sitting Pulse 61 Pulse Source Pulse Oximeter Pulse Oximetry (%) 96 Oxygen Delivery Method Room Air Intake Visit Reasons: 3mon f/u w/labs-Conf White Metal Caster Required: Yes White Metal Caster Name: Jorge L [id number] Accompanied by: WAREHOUSE ORDER PICKER Allergies No Known Allergies Allergy (Verified 05/31/25 09:29) HPI Comments Details: I had the pleasure of seeing Candi in follow up for proteinuria. She is a longstanding diabetic with poor glycemic control. She is followed by endocrinology. She has history of hypertension and nonischemic cardiomyopathy. She does not have any chest pain, shortness of breath, paroxysmal nocturnal dyspnea, orthopnea, urinary symptoms, hematuria, sensorineural deafness, orthostatic symptoms, epistaxis, hemoptysis, photosensitivity, joint swellings, skin rashes. She is known to have rheumatoid arthritis and is on methotrexate. She has been taking omeprazole for a long time. Her blood pressure has been at goal. She denies taking excessive nonsteroidal anti-inflammatories. She is on Entresto. Her renal functions had been normal and stable at baseline. She does not have any new bone or back pain. java developer architect was used during this encounter. Family member was also physically present at that time. 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 Mother No problems noted. Maternal Aunt Diabetes mellitus Social History Household Members: None Housing: Apartment Are you a primary managed care specialist to a significant other at home: No Do you presently have visiting nurse or other home services: Yes (telephone) Alcohol intake: never Patient Tobacco Use Status: Never used Tobacco service: No Current occupational status: retired Current occupation: rt handed Review of Systems Const All systems reviewed & are unremarkable except as noted in HPI and below Physical Exam Vital Signs: Last Vital Signs Pulse 61 05/31/25 09:28 BP 110/54 L 05/31/25 09:28 Pulse Ox 96 05/31/25 09:28 Oxygen Delivery Method Room Air 05/31/25 09:28 BMI result Body Mass Index 27.3 Const General: comfortable and no acute distress Orientation/consciousness: patient oriented x3 HEENT Head: Yes normocephalic Mouth: Normal oral and palatal mucosa present Eyes EOM: EOMs intact bilaterally Neck Neck: Yes supple Resp Auscultation: clear to auscultation bilaterally Cardio Jugular venous distension: no JVD Rate: regular rate GI Palpation (GI): Soft to palpation Auscultation: normal bowel sounds General: Yes no CVA tenderness Back/Spine/Pelvis Back: no CVA tenderness Skin General skin exam: no rashes or lesions noted Neuro General: patient oriented x3 and moves all extremities Extrem General: Yes no pedal edema Results Reviewed Nephrology Results: Hgb, (12.0-16.0) 11.8 g/dl L 05/24/25 WBC, (4.8-10.8) 6.4 X10*3/uL 05/24/25 Plt Count, (160-400) 111 X10*3/uL L 05/24/25 Sodium, (135-145) 142 mmol/L 05/24/25 Potassium, (3.3-5.1) 4.0 mmol/L 05/24/25 Chloride, (96-108) 108 mmol/L 05/24/25 Carbon Dioxide, (22-29) 27 mmol/L 05/24/25 BUN, (9-16) 26 mg/dL H 05/24/25 Creatinine, (0.5-1.4) 0.96 mg/dL 05/24/25 Calcium, (8.4-10.2) 9.5 mg/dL 05/24/25 Urine Creatinine 64.76 mg/dL 05/24/25 Protein/Creatinin Ratio, (<0.2) 0.71 H 04/19/25 Renal US 03/06/24 Assessment & Plan Assessment & Plan (1) Hypertension: Code(s): I10 - Essential (primary) hypertension Category: Medical Qualifiers: Hypertension type: primary hypertension Qualified Code(s): I10 - Essential (primary) hypertension (2) Diabetic nephropathy: Code(s): E11.21 - Type 2 diabetes mellitus with diabetic nephropathy Category: Medical Qualifiers: Diabetes mellitus type: type 1 Qualified Code(s): E10.21 - Type 1 d iabetes mellitus with diabetic nephropathy (3) Proteinuria: Code(s): R80.9 - Proteinuria, unspecified Category: Medical Qualifiers: Proteinuria type: persistent Qualified Code(s): R80.1 - Persistent pro teinuria, unspecified Plan Candi has proteinuria for some time. It is most likely due to diabetic nephropathy. Even though differential diagnosis are quite broad, to unlikely to be anything other than diabetic nephropathy. Her edema has gone since I increased her lasix to 40 mg daily . There is no indication for any renal biopsy now. Her blood pressure needs to be maintain a goal. Her blood sugar control needs to be better. Biopsying her kidney can be challenging and she is on anticoagulation. She should avoid nonsteroidal anti-inflammatories. She is tolerating Entresto very well. I did not make any other medication changes today. All these have been explained in detail. Answered all questions. Follow-up appointment given Orders: Orders Creatinine 6 Months E10.21 - Type 1 diabetes mellitus with diabetic nephropathy, I10 - Essential (primary) hypertension, R80.1 - Persistent proteinuria, unspecified Blood Urea Nitrogen 6 Months E10.21 - Type 1 diabetes mellitus with diabetic nephropathy, I10 - Essential (primary) hypertension, R80.1 - Persistent proteinuria, unspecified Electrolytes 6 Months E10.21 - Type 1 diabetes mellitus with diabetic neph ropathy, I10 - Essential (primary) hypertension, R80.1 - Persistent proteinuria, unspecified Protein Creatinine Ratio, Ur 6 Months E10.21 - Type 1 diabetes mellitus with diabetic nephropathy, I10 - Essential (primary) hypertension, R80.1 - Persistent proteinuria, unspecified Coding Level of Care Code Est Pt Level 4 (41442) Diagnoses Primary hypertension I10 Hypertension type: primary hypertension Diabetic nephropathy associated with type 1 diabetes mellitus E10.21 Diabetes mellitus type: type 1 Persistent proteinuria R80.1 Proteinuria type: persistent
== END 2025-05-31 09:47 | disposition home or self-care (01) ==
LOC: HO.HKA 09:09
PROVIDERS: PCP Family Medicine; Visit Provider Internal Medicine Nephrology
DX: I10 Essential (primary) hypertension (principal); E10.21 Type 1 diabetes mellitus with diabetic nephropathy; R80.1 Persistent proteinuria, unspecified
CPT/HCPCS: 99214

== ENCOUNTER → 2025-05-31 09:09 | Outpatient (BNVA) | payer OTHER, SELFPAY | PROVIDERS: PCP Family Medicine; Visit Provider Internal Medicine Nephrology | DX: I10 Essential (primary) hypertension (principal); E10.21 Type 1 diabetes mellitus with diabetic nephropathy; R80.1 Persistent proteinuria, unspecified; Z79.899 Other long term (current) drug therapy; Z79.01 Long term (current) use of anticoagulants | CPT/HCPCS: 99212 ==